=== PATIENT | female | born 1950 | race Caucasian/White ===

== ENCOUNTER → 2017-08-02 15:06 | Outpatient (CLI) | payer MEDICAID, SELFPAY | PROVIDERS: Family Provider Preventive Medicine Occupational Medicine; PCP Preventive Medicine Occupational Medicine; Visit Provider Anesthesiology Pain Medicine | DX: Z79.891 Long term (current) use of opiate analgesic (principal) | CPT/HCPCS: 36415 ==

== ENCOUNTER 2017-09-06 08:50 | Emergency (ER) | payer MEDICAID, SELFPAY ==
--- NOTE | 2017-09-06 08:50 | DT_ITS ---
This patient was seen during an EMR downtime September 05, 2017 - September 12, 2017. This patient may have a combination of paper and electronic documentation or all paper documentation. All documentation is viewable within the e-chart portion of [employer] for each patient visit.
== END 2017-09-06 10:38 | disposition home or self-care (01) ==
PROVIDERS: Emergency Provider Emergency Medicine; Family Provider Preventive Medicine Occupational Medicine; PCP Preventive Medicine Occupational Medicine
DX: H61.21 Impacted cerumen, right ear (principal); I10 Essential (primary) hypertension; F31.9 Bipolar disorder, unspecified; F32.9 Major depressive disorder, single episode, unspecified; E11.9 Type 2 diabetes mellitus without complications; Z79.84 Long term (current) use of oral hypoglycemic drugs; Z79.899 Other long term (current) drug therapy; F17.200 Nicotine dependence, unspecified, uncomplicated
CPT/HCPCS: 99284

== ENCOUNTER 2017-12-19 09:05 | Day surgery (SDC) | payer MEDICAID, SELFPAY ==
[2017-12-19 09:30] VITALS: BP 135/89; PULSE 57; RESP 18; TEMP 37.1; O2SAT 96; BMI 35.7
[2017-12-19 09:40] LABS: Bedside Glucose 87 mg/dL (70-110)
[2017-12-19] MEDS: MethylPREDNISolone Acetate 80 MG/ML Vial (10:15)
[2017-12-19] MEDS: Bupivacaine Mpf 0.5% 30 ML VIAL (10:15)
[2017-12-19 10:28] VITALS: BP 110/77; BP 135/89; PULSE 57; RESP 18; TEMP 37.1; O2SAT 100
[2017-12-19 10:35] VITALS: BP 111/74; BP 135/89; PULSE 53; RESP 16; O2SAT 100
[2017-12-19 10:39] VITALS: BP 117/62; BP 135/89; PULSE 53; RESP 18; TEMP 36.8; O2SAT 99
--- NOTE | 2017-12-19 10:45 | RAD_ITS ---
STUDY: RIGHT SI JOINT INJECTION. REASON FOR EXAM: Female, 67 years old. Right-sided back pain. FLUOROSCOPY TIME (if supplied): (0:10) minutes/seconds. 3 cone down views were obtained intraoperatively. TECHNIQUE: A right SI joint injection was performed by the pain management physician. COMPARISON: None. FINDINGS: The spinal needle is seen within the right sacroiliac joint. RAD/S-I Jts 3 or More Views IMPRESSION: Fluoroscopic imaging provided for right sacroiliac joint injection. Electronically Signed: Dwight Cleary MD at 15:37 EDT Tel [phone], Service support ,
[2017-12-19 11:27] VITALS: BP 135/89
--- NOTE | 2017-12-19 15:40 | PCM.OPRPT ---
Problem List (1) Sacrococcygeal disorders, not elsewhere classified Status: Chronic (2) Bilateral sacroiliitis Status: Chronic Report of Operation Date of Procedure: 12/19/17 Pre-Operative Diagnosis: Sacroiliitis, SI joint dysfunction Post-Operative Diagnosis: Sacroiliitis, SI joint dysfunction Surgery/Procedure Performed:: Right sided sacroiliac joint steroid injection under fluoroscopic guidance Description of Surgical Findings:: PROCEDURE: Right sacroiliac joint steroid injection under fluoroscopic guidance PREOPERATIVE DIAGNOSIS: Sacroiliitis, sacroiliac joint dysfunction POSTOPERATIVE DIAGNOSIS: Sacroiliitis, sacroiliac joint dysfunction ANESTHESIA: MAC COMPLICATIONS: None BLOOD LOSS: Minimal PROCEDURE IN DETAIL: History and physical today was reviewed. Risks and benefits of the procedure were explained. The patient understood, agreed to our procedure, and informed consent was obtained. IV inserted per routine protocol. The patient was taken to the operating room, placed in a prone position with a pillow positioned underneath the abdomen. The lower back and buttock area was prepped and draped in a sterile fashion using iodine ?3 no direct visualization of fluoroscopy at approximately 15? angle of the bilateral sacroiliac joints were visualized skin and subcutaneous tissue were anesthetized approximately 5 cc of 1% lidocaine using a 25-gauge regular needle under direct visualization with fluoroscopy at approximately 15? angle starting on the right SI a 22-gauge 3-1/2 inch spinal needle the needle was advanced via the skin the tip of the knee was maneuvering directed towards the inferior one third of the posterior SI joint once the tip of the needle was at the vicinity of the joint after negative aspiration for blood or CSF a total of 1 cc of contrast were injected to confirm correct placement of the needle as well as cephalocaudad spread the confirmation was obtained on AP as well as oblique view after repeated negative aspiration and confirmation a total of 4 cc of preservative-free 0.25% Marcaine with 40 mg of Depo-Medrol were injected in and around the SI joint the needles were then removed intact. The patient experienced no signs or symptoms intrathecal, intravascular injection. The patient experienced no paraesthesia. The procedure was completed without any apparent difficult, any complication. The patient appeared to tolerate well. ASSESSMENT AND PLAN: This is a 67-year-old female with sacroiliitis, sacroiliac joint dysfunction status post right sacroiliac joint steroid injection under fluoroscopic guidance. The patient will continue his current medications. The patient will follow in approximately 2 weeks for possible repeat of the procedure if indicated.
== END 2017-12-19 11:28 | disposition home or self-care (01) ==
LOC: SDC 09:06 → AC 09:08
PROVIDERS: Family Provider Preventive Medicine Occupational Medicine; PCP Preventive Medicine Occupational Medicine; Visit Provider Anesthesiology Pain Medicine
PROC: 3E0U3BZ Introduction of Anesthetic Agent into Joints, Percutaneous Approach (ICD-10-PCS; CPT 64451; principal; 2017-12-19 10:40)
DX: M46.1 Sacroiliitis, not elsewhere classified (principal); F41.9 Anxiety disorder, unspecified; F32.9 Major depressive disorder, single episode, unspecified; K59.09 Other constipation; Z79.899 Other long term (current) drug therapy; Z79.84 Long term (current) use of oral hypoglycemic drugs; I10 Essential (primary) hypertension; F17.200 Nicotine dependence, unspecified, uncomplicated; E11.9 Type 2 diabetes mellitus without complications
CPT/HCPCS: 01992; 27096; 64483; 72202; 82962; J7120; J3490

== ENCOUNTER 2018-02-20 05:40 | Day surgery (SDC) | payer MEDICAID, SELFPAY ==
[2018-02-20] VITALS (7 sets, daily range): BP systolic 111–131; BP diastolic 63–74; PULSE 57–69; RESP 16; TEMP 36.3–36.6; O2SAT 95–100; BMI 36.5
[2018-02-20 06:25] LABS: Bedside Glucose 92 mg/dL (70-110)
--- NOTE | 2018-02-20 07:30 | RAD_ITS ---
STUDY: X-RAY - LUMBAR SPINE REASON FOR EXAM: Female, 67 years old. Radiofrequency ablation L3-S1. TECHNIQUE: 13 view(s) of the lumbar spine were obtained. COMPARISON: None FINDINGS: 13 spot images were submitted, as radiology support for c-arm imaging in the operating room. This is not a diagnostic examination. Images for documentation purposes only. Fluoroscopy time if reported: 24.8 seconds. 7.77 mGy RAD/L/S Spine Min 4 Views IMPRESSION: Intraoperative fluoroscopic image guidance. Electronically Signed: Maria Teresa Clement MD at 0:02 EST , Service support ,
[2018-02-20] MEDS: Bupivacaine 0.5% PF 10 ML VIAL (07:47)
[2018-02-20] MEDS: MethylPREDNISolone Acetate 80 MG/ML Vial (07:48)
--- NOTE | 2018-02-20 08:04 | OP.PCM_ITS ---
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 radiculopathy Status: Chronic (2) Degeneration of intervertebral disc of lumbosacral region Status: Chronic Report of Operation Date of Procedure: 02/20/18 Pre-Operative Diagnosis: Lumbosacral spondylosis, lumbosacral degenerative disc disease, lumbar facet arthropathy Post-Operative Diagnosis: Lumbosacral spondylosis, lumbosacral degenerative disc disease, lumbar facet arthropathy Surgery/Procedure Performed:: Left-sided lumbar radiofrequency ablation of the medial branch at L3, L4, L5, S1 Description of Surgical Findings:: PROCEDURE: Left-sided radiofrequency ablation of the medial branch L3, L4, L5, S1 PREOPERATIVE DIAGNOSES: Lumbosacral spondylosis, lumbosacral degenerative disc disease, lumbar facet arthropathy POSTOPERATIVE DIAGNOSES: Lumbosacral spondylosis, lumbosacral degenerative disc disease, lumbar facet arthropathy ANESTHESIA: MAC COMPLICATIONS: None BLOOD LOSS: Minimal PROCEDURE IN DETAIL: History and physical today was reviewed. Risks and benefits of procedure explained. The patient understood, agreed to the procedure and informed consent was obtained. IV inserted per routine protocol. The patient was taken to the operating room, placed in the prone position with a pillow positioned underneath the abdomen. The left side of the lower back was prepped and draped in a sterile fashion using iodine x 3. Under fluoroscopy guidance, on an oblique view, the L3 through S1 vertebral bodies were visualized. The skin and subcutaneous tissue was anesthetized with approximately 10 mL of 1% lidocaine using a 25-gauge regular needle. Under direct visualization with fluoroscopy at approximately 25-degree angle, starting on the left L3, ending on the left S1 passing through the L4-L5 using a 20-gauge 15 cm with a 10 mm curved active tip radiofrequency ablation needle, the needle passed through the skin, The tip of the needle was maneuvered and directed towards the superior and medial gutter of the transverse process at the vicinity of the medial branch. Once the tip of the needle was in contact with the bone, the needle pulled approximately 2 mm up the bone. The stylet of each needle was then removed. After negative aspiration of blood with CSF and confirmation of AP as well as oblique view, radiofrequency ablation probe was then inserted at each level. Impedance was then recorded at L3 to be 252, at L4 317, at L5 218, at S1 315 ohm. Motor-evoked potential was then initiated to 1.5 volt without any motor response at each corresponding level. The probe was then removed intact and a total of 6 mL preservative-free 1% lidocaine was injected in divided doses between those 4 levels after negative aspiration of blood with CSF. The radiofrequency ablation probe was then reinserted after confirmation of AP, oblique as well as lateral view. Radiofrequency ablation was then initiated to 80 degrees Celsius for 90 seconds at each level. Once concluded, the probe was then removed intact and a total of 6 mL of preservative-free 0.25% Marcaine with 40 mg Depo-Medrol was injected in divided doses between those 4 levels. The needles were then removed intact. The patient experienced no signs or symptoms of intrathecal, intravascular injection. The patient experienced no paraesthesia. The procedure was completed without any ap parent difficulty, any complication. The patient appeared to tolerate well. Sensory as well as motor exam was unchanged from prior to procedure. ASSESSMENT AND PLAN: This is a 67-year-old female with lumbosacral spondylosis, lumbosacral degenerative disc disease, lumbar facet arthropathy, status post left-sided radiofrequency ablation of the medial branch L3 through S1. The patient will continue her current medications. The patient will follow up in approximately 2 weeks for reevaluation.
== END 2018-02-20 09:17 | disposition home or self-care (01) ==
LOC: SDC 05:41 → AC 05:42
PROVIDERS: Family Provider Preventive Medicine Occupational Medicine; PCP Preventive Medicine Occupational Medicine; Referring Provider Anesthesiology Pain Medicine; Visit Provider Anesthesiology Pain Medicine
PROC: (CPT 64635; principal; 2018-02-20 07:15)
DX: M47.817 Spondylosis without myelopathy or radiculopathy, lumbosacral region (principal); M51.37 Other intervertebral disc degeneration, lumbosacral region; M46.96 Unspecified inflammatory spondylopathy, lumbar region; M48.061 Spinal stenosis, lumbar region without neurogenic claudication; M51.36 Other intervertebral disc degeneration, lumbar region; M54.16 Radiculopathy, lumbar region; E11.9 Type 2 diabetes mellitus without complications; E78.00 Pure hypercholesterolemia, unspecified; F32.9 Major depressive disorder, single episode, unspecified; G43.909 Migraine, unspecified, not intractable, without status migrainosus; I10 Essential (primary) hypertension; F20.9 Schizophrenia, unspecified; M19.90 Unspecified osteoarthritis, unspecified site; F31.9 Bipolar disorder, unspecified; F41.9 Anxiety disorder, unspecified; K59.09 Other constipation; Z91.5 Personal history of self-harm; Z87.19 Personal history of other diseases of the digestive system; Z78.0 Asymptomatic menopausal state; Z96.652 Presence of left artificial knee joint; Z79.84 Long term (current) use of oral hypoglycemic drugs; Z79.891 Long term (current) use of opiate analgesic; Z79.899 Other long term (current) drug therapy; F17.210 Nicotine dependence, cigarettes, uncomplicated
CPT/HCPCS: 64635; 64636 ×3; 72110; 76000; 82962; J7120; J3490

== ENCOUNTER → 2018-03-09 11:32 | Outpatient (CLI) | payer MEDICAID, SELFPAY ==
[2018-02-20 06:13] VITALS: BMI 36.5
--- NOTE | 2018-03-09 11:35 | BI_ITS ---
MAMMOGRAPHY - BILATERAL SCREENING REASON FOR EXAM: Female, 68 years old. Routine annual screening examination. PERTINENT HISTORY: Non-contributory. Remote left breast biopsy. TECHNIQUE: Digital bilateral breast shawna (3D mammographic acquisition) in the CC and MLO projections. 2-D mediolateral oblique (MLO) and craniocaudad (CC) views of both breasts were obtained. CAD: Full Field Digital Mammography with Computer Added Detection was performed. COMPARISON: Comparison is made with prior examination dated August 22, 2013. FINDINGS: Breast Composition: The breasts are heterogeneously dense, which may obscure small masses. There are no dominant masses or suspicious calcifications. A tissue clip marker is seen in the superior slightly lateral retroareolar region of the left breast. This is unchanged. Scattered benign-appearing bilateral microcalcifications. Stable small axillary lymph nodes bilaterally. No other significant abnormalities are identified. There has been no significant change since the prior study. BI/SCREENING MAMM (CAD), BILAT IMPRESSION: Stable bilateral screening mammogram. Yearly follow-up mammogram recommended. (A) ASSESSMENT CATEGORY: BIRADS Category 2: Benign. A letter regarding these results will be sent to the patient by the facility within 30 days. Approximately 10% of breast cancers are not detected by mammography. A normal mammogram should not delay biopsy of a clinically suspicious abnormality. [id number] Electronically Signed: Dwight Cleary MD at 8:28 EST Tel [phone], Service support ,
== END ==
PROVIDERS: Family Provider Preventive Medicine Occupational Medicine; PCP Preventive Medicine Occupational Medicine; Referring Provider Preventive Medicine Occupational Medicine; Visit Provider Preventive Medicine Occupational Medicine
DX: Z12.31 Encounter for screening mammogram for malignant neoplasm of breast (principal)
CPT/HCPCS: 77063; 77067

== ENCOUNTER 2018-03-13 12:00 | Outpatient (RCR) | payer MEDICAID, SELFPAY ==
--- NOTE | 2017-07-19 12:02 | HP.PTEVAL_ITS ---
Patient's Visit Information SILVIA ROSADO is a 67 year old F referred to Physical Therapy by FAISAL Robertson with a diagnosis of LUMBAR SPINAL STENOSIS, DDD, FACET ARTHROPATHY AND RADICULOPATHY. Date of Evaluation: 07/19/17 Physical Therapist: Erika Ibarra - Visit Plan Frequency: 2-3x /Week Duration: 4-6 Weeks Plan: AQUATIC THERAPY. POSTURE CORRECTION/STRENGTHENING, INSTRUCTION IN APPROPRIATE BODY MECHANICS AND ACTIVITY MODIFICATIONS. DLS STARTING WITH A NEUTRAL SPINE PROGRESSING ROM TOLERATED. CHANO LE ROM, STRETCHING AND STRENGTHENING. HEP INSTRUCTION. - Subjective Subjective: Diagnosis: LUMBAR SPINAL STENOSIS, DDD, FACET ARTHROPATHY AND RADICULOPATHY. Work/Leisure: UNEMPLOYEED. Disability: SSI DISABILITY FOR PSYCHIATRIC REASONS AND HER EYES. ON DISABILITY SINCE ABOUT AGE 43. Present symptoms: LOW BACK PAIN. CHANO LE WEAKNESS AND INTERMITTENT LEFT KNEE PAIN. RECENT HISTORY OF SHOOTING PAINS DOWN RIGHT LEG BUT RIGHT LEG IS BETTER SINCE SHOT ABOUT A MONTH AGO BY DR. FOY. Present since: CHRONIC. Pain Scale: WORST 7/10, LEAST 4/10. Currently: 4/10. Commenced as a result of: OA. Symptoms at onset: LOW BACK. Worse: WHEN I TRY TO DO TO MUCH. BEING UP AND AROUND TOO MUCH. Better: SITTING AND SOMETIMES LYING DOWN. Disturbed sleep: YES BUT NOT DUE TO LOW BACK PAIN. Previous history/Previous treatment: NO LOW BACK SURGERY. A LOT OF INJECTIONS. NO PT. NO CHIRO. Coughing/sneezing/ straining: YES. Gait: CANE NEEDED. NOT USING CANE IN THE HOUSE. USES CANE WHEN SHE GOES OUT. Difficulty initiating urinatin: NO. Accidents: NO. Unexplained weight loss: NO. Imaging: RECENT WITH DR. FOY. PMH: PSYCHIATRIC ISSUE. SEE BELOW. - Objective Sitting Posture: POOR. Standing Posture: POOR. Lordosis: REDUCED. Lateral shift: NO. Relevant shift: N/A. Active Correction of posture: WORSE. Other Observations: INDEP GAIT INTO PT WITH A STRAIGHT CANE WITH SLOW ANTALGIC GAIT PATTERN. NO LOSS OF BALANCE. UNABLE TO TRANSFER SIT TO STAND WITHOUT UE ASSIST. UNABLE TO SLS ON EITHER LEG MORE THAN A FEW SECONDS WITHOUT UE ASSIST. Motor deficit: CHANO LE GENERALIZED WEAKNESS GRADED 4-/5. Sensory deficit: NO. ROM deficit: CHANO KNEE FULL EXT TO >100 DEG FLEX. TIGHT CHANO HS'S, AND GASTROC SOLEUS COMPLEX'S. Dural Signs: POSITIVE CHANO LE'S. Lumbar mvmt loss: flex - MOD. ext - YESSICA. R SG - YESSICA. L SG - YESSICA. Core strength: POOR. Palpation: NO ACUTE TENDERNESS IN THE LUMBOSACRAL OR HIP/PELVIC REGIONS TODAY - Goals Goal 1:: DECREASE C/O BACK AND CHANO LE SX'S Goal Time Frame: 4-6 Weeks Goal 2:: IMPROVE PERSONAL CARE, LIFITNG, WALKING, STANDING, SOCIAL LIFE, TRAVEL AND HOMEMAKING FUNCTION Goal Time Frame: 4-6 Weeks Goal 3:: INSTRUCT IN PROPHYLAXIS Goal Time Frame: 4-6 Weeks - Rehabilitation Potential Rehabilitation Potential: Fair - Anticipated Interventions Patient/Client Instruction: Educate patient on: Condition, Plan of Care, Risk Factors, Benefits of Fitness Program For the Purpose of:: To improve self management Therapeutic Exercise to Include: Strength training, Endurance training, Balance training, Body mechanics, Postural training, Flexibilty training, In an aquatic setting, Active ROM, Dynamic Lumbar Stabilization For the Purpose of:: To decrease pain, To increase ROM, To improve muscle performance and motor function, To improve ability to perform ADL's, To increase tolerance to activity/condition/position, To improve ability of physical actions for home/community/work/leisure, To improve gait and locomotor functions Thank you for the opportunity to evaluate your patient. For Medicare and Medicare HMO plans, please review the plan of care and approve it. It will need to be FAXED BACK to us at [phone] for Medicare purposes. Please let me know if there are questions or concerns regarding this plan of care. Physician Signature: Date:
--- NOTE | 2017-09-19 11:33 | HP.PTREVAL ---
Yarelis Mehta, LEONOR-C, It has been my pleasure to treat SILVIA ROSADO over the last 9 visits for LUMBAR SPINAL STENOSIS, DDD, FACET ARTHROPATHY AND RADICULOPATHY. Please see the progress note below for an update on the physical therapy plan of care! Subjective: PATIENT REPORTS SHE MISSED SOME POOL APPOINTMENTS DUE TO OTHER APPOINTMENTS AND WANTS TO DO MORE POOL WITH US. I'M HAVING ANOTHER SHOT NEXT TUESDAY ON THE RIGHT LOW BACK. PATIENT REPORTS IT DOESN'T HURT HER WHEN SHE EX'S IN THE POOL AND EVEN THOUGH SHE FEELS IT WHEN SHE GETS OUT SHE FEELS LIKE IT HELPS HER TO BE ABLE TO BE MORE ACTIVE OVER-ALL. PATIENT IS GOING TO CONSIDER JOINING THE [facility] OR DAYS INN TO CONTINUE WATER EX POST PT. Objective/Function: UPON EXAM, THERE ARE NO SIGNIFICANT CHANGES IN FUNCTIONAL ROM OR STRENGTH BUT PATIENT IS REPORTING DECREASED PAIN FROM THE INJECTION AND A DESIRE TO CONTINUE AQUATIC THERAPY AGAIN. SHE REPORTS CONTINUED IMPROVEMENT OVER THE PAST MONTH WELL. INDEP GAIT INTO PT WITH A STRAIGHT CANE WITH FAIR CADANCE COMPARED AND NO LOSS OF BALANCE. STILL UNABLE/DOES NOT WANT TO ATTEMPT TO TRANSFER SIT TO STAND WITHOUT UE ASSIST. STILL UNABLE TO SLS ON EITHER LEG MORE THAN A FEW SECONDS WITHOUT UE ASSIST AND PATIENT IS NERVOUS WITH TESTING. Motor deficit: CHANO LE GENERALIZED WEAKNESS GRADED 4-/5. Sensory deficit: NO. ROM deficit: CHANO KNEE FULL EXT TO 100 DEG FLEX ON THE RIGHT AND 92 DEG FLEX ON THE LEFT. SHE REPORTS EVERY DAY IS DIFFERENT WITH HER KNEES. TIGHT CHANO HS'S, AND GASTROC SOLEUS COMPLEX'S. Dural Signs: POSITIVE CHANO LE'S. Lumbar mvmt loss: flex - MOD. ext - YESSICA. R SG - YESSICA. L SG - YESSICA. PATIENT IS ALSO TENTATIVE WITH LUMBAR ROM TESTING AND STOPS EACH DIRECTION WHEN IT HURTS. Core strength: POOR. Palpation: SHE DOES HAVE ACUTE TENDERNESS IN THE RIGHT LUMBOSACRAL REGIONS TODAY. INJECTION PENDING NEXT WEEK. Plan Plan: RECOMMEND CONTINUED AQUATIC THERAPY 2X'S A WEEK X 3-4 WEEKS PER ORIG POC WORKING TOWARD SAME GOALS. CONTINUE TO ENCOURAGE PATIENT TO GAIN ACCESS TO A POOL TO CONTINUE WATER EX POST PT. Goals Goal 1:: DECREASE C/O BACK AND CHANO LE SX'S Goal Time Frame: 4-6 Weeks Goal Progress: Progressing Goal 2:: IMPROVE PERSONAL CARE, LIFITNG, WALKING, STANDING, SOCIAL LIFE, TRAVEL AND HOMEMAKING FUNCTION Goal Time Frame: 4-6 Weeks Goal Progress: Progressing Goal 3:: INSTRUCT IN PROPHYLAXIS Goal Time Frame: 4-6 Weeks Goal Progress: Progressing Anticipated Interventions Patient/Client Instruction: Educate patient on: Condition, Plan of Care, Risk Factors, Benefits of Fitness Program For the Purpose of:: To improve self management Therapeutic Exercise to Include: Strength training, Endurance training, Balance training, Body mechanics, Postural training, Flexibilty training, In an aquatic setting, Active ROM, Dynamic Lumbar Stabilization For the Purpose of:: To decrease pain, To increase ROM, To improve muscle performance and motor function, To improve ability to perform ADL's, To increase tolerance to activity/condition/position, To improve ability of physical actions for home/community/work/leisure, To improve gait and locomotor functions Please do not hesitate to contact me at [phone] by phone or if you have questions or concerns regarding this new plan of care! Sincerely, Erika Ibarra
--- NOTE | 2017-12-27 12:36 | HP.PTREVAL_ITS ---
Yarelis Mehta, LEONOR-C, It has been my pleasure to treat SILVIA ROSADO over the last 21 visits for LUMBAR SPINAL STENOSIS, DDD, FACET ARTHROPATHY AND RADICULOPATHY. Please see the progress note below for an update on the physical therapy plan of care! Subjective: Doing okay ..would like to do Aquatic ex's ,land ex's would agrravate my symptoms. Patien has shown small gains with function and gait walking for example store Objective/Function: POSTURE: mild foward posture. GAIT: ambulated with cane mild foward posture. antalgic gait. NEURO: denies parathesai/tingling,reflexes L3-4,L4-5,L5-S 1/3. MMT: quad/hams 4-/5,hip flexion right 4-/5,left 3+/5. LUMBAR ROM: mod loss flexion,extesnion mod /severe loss Plan Plan: Cont with PT interventions Aquatic 2 xweek for 3weeks Goals Goal 1:: DECREASE C/O BACK AND CHANO LE SX'S Goal Time Frame: 4-6 Weeks Goal Progress: Progressing Goal 2:: IMPROVE PERSONAL CARE, LIFITNG, WALKING, STANDING, SOCIAL LIFE, TRAVEL AND HOMEMAKING FUNCTION Goal Time Frame: 4-6 Weeks Goal Progress: Progressing Goal 3:: INSTRUCT IN PROPHYLAXIS Goal Time Frame: 4-6 Weeks Goal Progress: Progressing Anticipated Interventions Patient/Client Instruction: Educate patient on: Condition, Plan of Care, Risk Factors, Benefits of Fitness Program For the Purpose of:: To improve self management Therapeutic Exercise to Include: Strength training, Endurance training, Balance training, Body mechanics, Postural training, Flexibilty training, In an aquatic setting, Active ROM, Dynamic Lumbar Stabilization For the Purpose of:: To decrease pain, To increase ROM, To improve muscle performance and motor function, To improve ability to perform ADL's, To increase tolerance to activity/condition/position, To improve ability of physical actions for home/community/work/leisure, To improve gait and locomotor functions Please do not hesitate to contact me at [phone] by phone or Fax: if you have questions or concerns regarding this new plan of care! Sincerely, Barrera Maher, PT,
--- NOTE | 2018-04-26 10:27 | HP.PTDCSUM ---
HP - PT D/C Summary It has been my pleasure to treat SILVIA ROSADO under orders from ADAM RobertsonC, for the diagnosis of LUMBAR SPINAL STENOSIS, DDD, FACET ARTHROPATHY AND RADICULOPATHY for a total of 25 visit(s). Discharge Date: Please see the following information for a summary of their discharge status. - Subjective Subjective: Doing okay ..pain about same - Pain Lumbar spine Pain Intensity (Out of 10): 5 R knee Pain Intensity (Out of 10): 5 L foot Pain Intensity (Out of 10): 5 - Overall Improvement % Improvement: 75 - Objective Objective/Function: kirill tx well progressed with DLS abd/back - Goals Goal 1:: DECREASE C/O BACK AND CHANO LE SX'S Goal Progress: Progressing Goal 2:: IMPROVE PERSONAL CARE, LIFITNG, WALKING, STANDING, SOCIAL LIFE, TRAVEL AND HOMEMAKING FUNCTION Goal Progress: Progressing Goal 3:: INSTRUCT IN PROPHYLAXIS Goal Progress: Progressing - Plan Plan: will transition to land ex's focusing on slow grade postural ex's,DLS M,LE strengthening - D/C Information If there are questions or concerns regarding this patient's physical therapy, please feel free to call me at [phone]. Thank you for the referral of this patient. Sincerely, Barrera Maher, PT, Cert MDT, OCS
== END 2018-03-13 19:00 | disposition home or self-care (01) ==
LOC: PT 12:00
PROVIDERS: Family Provider Preventive Medicine Occupational Medicine; PCP Preventive Medicine Occupational Medicine; Visit Provider Nurse Practitioner Family
DX: M48.061 Spinal stenosis, lumbar region without neurogenic claudication (principal); M46.96 Unspecified inflammatory spondylopathy, lumbar region; M54.16 Radiculopathy, lumbar region; M79.1 Myalgia
CPT/HCPCS: 97110; 97113; 97162; 97164; 97530

== ENCOUNTER 2018-03-20 06:50 | Day surgery (SDC) | payer MEDICAID, SELFPAY ==
[2018-02-20 06:13] VITALS: BMI 36.5
[2018-03-20 07:17] VITALS: BP 127/74; PULSE 62; RESP 16; TEMP 37.4; O2SAT 97; BMI 38.1
[2018-03-20 07:35] LABS: Bedside Glucose 96 mg/dL (70-110)
[2018-03-20] MEDS: MethylPREDNISolone Acetate 40 MG/ML Vial IM (08:50)
[2018-03-20] MEDS: Bupivacaine 0.25% 30 ML Vial INFILT (08:50)
--- NOTE | 2018-03-20 08:50 | RAD_ITS ---
PROCEDURE: Right L3-S1 radiofrequency ablation. DATE OF EXAMINATION: March 20, 2018. INDICATION: Female, 68 years old. Low back pain. FLUOROSCOPY TIME (if supplied): (0:28) minutes/seconds. 7 coned-down views were obtained intraoperatively. Fluoroscopic services provided for right L3 S1 radiofrequency ablation. RAD/L/S Spine Min 4 Views IMPRESSION: Intraoperative imaging provided for right L3-S1 radiofrequency ablation. Electronically Signed: Dwight Cleary MD at 9:35 EST Tel [phone], Service support ,
--- NOTE | 2018-03-20 09:06 | PCM.OPRPT ---
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 radiculopathy Status: Chronic (2) Degeneration of intervertebral disc of lumbosacral region Status: Chronic Report of Operation Date of Procedure: 03/20/18 Pre-Operative Diagnosis: Lumbosacral spondylosis, lumbosacral degenerative disc disease, lumbar facet arthropathy Post-Operative Diagnosis: Lumbosacral spondylosis, lumbosacral degenerative disc disease, lumbar facet arthropathy Surgery/Procedure Performed:: Right-sided lumbar radiofrequency ablation of the medial branch at L3, L4, L5, S1 Description of Surgical Findings:: PROCEDURE: Right-sided radiofrequency ablation of the medial branch L3, L4, L5, S1 PREOPERATIVE DIAGNOSES: Lumbosacral spondylosis, lumbosacral degenerative disc disease, lumbar facet arthropathy POSTOPERATIVE DIAGNOSES: Lumbosacral spondylosis, lumbosacral degenerative disc disease, lumbar facet arthropathy ANESTHESIA: MAC COMPLICATIONS: None BLOOD LOSS: Minimal PROCEDURE IN DETAIL: History and physical today was reviewed. Risks and benefits of procedure explained. The patient understood, agreed to the procedure and informed consent was obtained. IV inserted per routine protocol. The patient was taken to the operating room, placed in the prone position with a pillow positioned underneath the abdomen. The right side of the lower back was prepped and draped in a sterile fashion using iodine x 3. Under fluoroscopy guidance, on an oblique view, the L3 through S1 vertebral bodies were visualized. The skin and subcutaneous tissue was anesthetized with approximately 10 mL of 1% lidocaine using a 25-gauge regular needle. Under direct visualization with fluoroscopy at approximately 25-degree angle, starting on the right L3, ending on the right S1 passing through the L4-L5 using a 20-gauge 15 cm with a 10 mm curved active tip radiofrequency ablation needle the needle passed through the skin. The tip of the needle was maneuvered and directed towards the superior and medial gutter of the transverse process at the vicinity of the medial branch. Once the tip of the needle was in contact with the bone, the needle pulled approximately 2 mm up the bone. The stylet of each needle was then removed. After negative aspiration of blood with CSF and confirmation of AP as well as oblique view, radiofrequency ablation probe was then inserted at each level. Impedance was then recorded at L3 to be 228, at L4 244, at L5 271, at S1 297 ohm. Motor-evoked potential was then initiated to 1.5 volt without any motor response at each corresponding level. The probe was then removed intact and a total of 6 mL preservative-free 1% lidocaine was injected in divided doses between those 4 levels after negative aspiration of blood with CSF. The radiofrequency ablation probe was then reinserted after confirmation of AP, oblique as well as lateral view. Radiofrequency ablation was then initiated to 80 degrees Celsius for 90 seconds at each level. Once concluded, the probe was then removed intact and a total of 6 mL of preservative-free 0.25% Marcaine with 40 mg Depo-Medrol was injected in divided doses between those 4 levels. The needles were then removed intact. The patient experienced no signs or symptoms of intrathecal, intravascular injection. The patient experienced no paraesthesia. The procedure was completed without any apparent difficulty, any complication. The patient appeared to tolerate well. Sensory as well as motor exam was unchanged from prior to procedure. ASSESSMENT AND PLAN: This is a 68-year-old Female with lumbosacral spondylosis, lumbosacral degenerative disc disease, lumbar facet arthropathy, status post right-sided radiofrequency ablation of the medial branch L3 through S1. The patient will continue her current medications. The patient will follow up in approximately 2 weeks for reevaluation.
[2018-03-20 09:10] VITALS: BP 117/69; BP 127/74; PULSE 61; RESP 16; TEMP 36.3; O2SAT 99
[2018-03-20 09:15] VITALS: BP 117/70; BP 127/74; PULSE 61; RESP 16; O2SAT 98
[2018-03-20 09:20] VITALS: BP 121/65; BP 127/74; PULSE 61; RESP 16; O2SAT 98
[2018-03-20 09:25] VITALS: BP 127/74; BP 131/83; PULSE 57; RESP 16; TEMP 36.4; O2SAT 98
[2018-03-20 10:01] VITALS: BP 127/74
--- OUTSIDE RECORDS SUMMARY | 2018-06-21 16:41 | XMS RPT_ITS ---
:1950 Author Organization OHIP Care Team Providers Name Role Phone Brandon Cuellar Attending Unavailable Brandon Cuellar Referring Unavailable Broderick Mi Primary Care Unavailable Broderick Mi Primary Care Unavailable Margaret Elizondo Attending Unavailable Sunny Odom Attending Unavailable Sunny Odom Referring Unavailable Broderick Mi Primary Care Unavailable Broderick Mi Attending Unavailable Broderick Mi Primary Care Unavailable Broderick Mi Referring Unavailable Brandon Cuellar Attending Unavailable Brandon Cuellar Referring Unavailable Broderick Mi Primary Care Unavailable Brandon Cuellar Attending Unavailable Brandon Cuellar Referring Unavailable Broderick Mi Primary Care Unavailable Yarelis Mehta RED MUD THICKENER OPERATOR-C Attending Unavailable Yarelis Mehta RED MUD THICKENER OPERATOR-C Referring Unavailable Broderick Mi Primary Care Unavailable Brandon Cuellar Attending Unavailable Brandon Cuellar Referring Unavailable Broderick Mi Primary Care Unavailable PROBLEMS PROBLEMS DATE TYPE CONDITION / CODE ATTENDING STATUS SOURCE 03/23/2018 Unknown R52 - Pain, Jwayyed, Active [place] [facility] 04/26/2018 Unknown 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, 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, lumbar RED MUD THICKENER OPERATOR-C [facility] neurogenic Repository claudication / M48.061(ICD-10) 09/30/2017 Unknown H92.01 - Otalgia, Sunny Odom Active [place] right ear / [facility] H92.01(ICD-10) Hospital Repository 08/11/2017 Unknown Z79.891 - [place] Brandon Active [place] term (current) use [facility] analgesic / Repository Z79.891(ICD-10) PROCEDURES PROCEDURES No Procedure Records FoundRESULTS RESULTS PT D/C SUMMARY (1) Observed: 04/26/2018 Status: F Source: [place] 11:40 AM [facility] REPOSITORY [facility] Physical Therapy [facility] [place] [address] / REHABILITATION SERVICES DISCHARGE SUMMARY MR#: [id number] Acct: [id number] Name: SILVIA ROSADO Rep #: [id number] : 1950 68 From: Reyna Maher PT, Cert. T, OCS Referring Dr.: Yarelis Mehta Status: REG RCR Insurance: [facility] [employer] SELF PAY INSURANCE HP - PT D/C Summary It has been my pleasure to treat SILVIA ROSADO under orders from FAISAL Robertson, for the diagnosis of LUMBAR SPINAL STENOSIS, DDD, FACET ARTHROPATHY AND RADICULOPATHY for a total of 25 visit(s). Discharge Date: Please see the following information for a summary of their discharge status. - Subjective Subjective: Doing okay ..pain about same - Pain Lumbar spine Pain Intensity (Out of 10): 5 R knee Pain Intensity (Out of 10): 5 L foot Pain Intensity (Out of 10): 5 - Overall Improvement % Improvement: 75 - Objective Objective/Function: kirill tx well progressed with DLS abd/back - Goals Goal 1:: DECREASE C/O BACK AND CHANO LE SX'S Goal Progress: Progressing Goal 2:: IMPROVE PERSONAL CARE, LIFITNG, WALKING, STANDING, SOCIAL LIFE, TRAVEL AND HOMEMAKING FUNCTION Goal Progress: Progressing Goal 3:: INSTRUCT IN PROPHYLAXIS Goal Progress: Progressing - Plan Plan: will transition to land ex's focusing on slow grade postural ex's,DLS M,LE strengthening - D/C Information If there are questions or concerns regarding this patient's physical therapy, please feel free to call me at [phone]. Thank you for the referral of this patient. Sincerely, Reyna Maher PT, Cert MDT, OCS <Electronically signed by Mirta Kuo PT. T, OCS> 04/26/18 1140 CC: Yarelis Mehta; Broderick Mi DO MIKE Signed EMERGENCY DEPARTMENT Observed: 03/23/2018 Status: F Source: [place] SUMMARY 4:23 PM [facility] REPOSITORY [facility] Medical Records Department [address] [place] [address] Emergency Department Summary 03/23/18 0837 MR#: [id number] Acct: [id number] Name: SILVIA ROSADO Rep #: [id number] : 1950 68 From: Margaret Elizondo MD PCP: Broderick Mi DO Status: DEP ER - ER Visit Summary Date of Service: 03/23/18 Chief Complaint: [] Right upper dental pain mild facial swelling for a few days History of Present Illness: The patient is a 68 F [] reports that basically for a few days she has had pain over what she knows to be decaying right upper teeth she has some mild facial swelling she was seen by her dentist about a month ago recommend these teeth be extracted she refused and presents for evaluation. No other complaints no change in vision no eye pain no fever cough, Physical Examination: [] 120/80 afebrile General, no distress resting comfortably HEENT is generally unremarkable except for there is some very mild right facial swelling over the cheek, there are at least 2 decaying teeth to the right upper mandible there is no drainage no gingival gumline swelling she has multiple extractions, there is no drainage no airway issues for the mouth is normal no Kevin's breathing normally speaking normally The neck is supple no adenopathy Cardiovascular, regular rate and rhythm Lungs, clear bilateral Abdomen, soft nontender Extremities, no clubbing cyanosis or edema Neurologic, awake alert answering questions appropriately moving all 4 extremities Test Results: [] Emergency Department Course and Treatment: [] Time she will be started on Pen-Vee K Naprosyn she is not allergic to hydrocodone or oxycodone she will be given 2 hydrocodone tablets use at bedtime and she will follow-up with her dentist for further management Treatment Plan: [] Disposition: [] Home stable Impression: [] Dental decay dental pain This note was generated with [employer] software. It may contain incorrect words, spelling, and punctuation that were not noted in review of the chart prior to signing ED Disposition - Plan for ED Patient: Chief Complaint: Dental Referrals: Broderick Mi DO [Primary Care Provider] - What to do if you have Problems For any increased pain, shortness of breath, bleeding, nausea or vomiting, chest pain, or any unexpected problems, contact your Primary Care Provider. Call [facility] ([phone]) or report to the closest Emergency Room. Call 911 if necessary. 03/23/18 1623 <Electronically signed by Margaret Elizondo MD> Date Margaret Elizondo MD Cosigner Signature (If Indicated): Date CC: Broderick Mi DO DISCHARGE INSTRUCTION Observed: 03/23/2018 Status: F Source: [place] 8:58 AM [facility] REPOSITORY [facility] Medical Records Department [address] [place] [address] Discharge Instruction 03/23/18 0855 MR#: [id number] Acct: [id number] Name: SILVIA ROSADO Rep #: [id number] : 1950 68 From: Margaret Elizondo MD PCP: Broderick Mi DO Status: REG ER ED Disposition - Plan for ED Patient: Chief Complaint: Dental Instructions: ED Tooth Pain, ED Cavity Dental Prescriptions: Hydrocodone Bitart/Apap 5-325 [Dilley 5MG-325MG] 1 tab PO Q4H PRN PRN 2 Days #2 tab PRN Reason: Pain Naproxen [Naprosyn] 500 mg PO BID PRN #20 tab Penicillin V Potassium 500 mg PO 4X/DAY #40 tab Referrals: Broderick Mi DO [Primary Care Provider] - What to do if you have Problems For any increased pain, shortness of breath, bleeding, nausea or vomiting, chest pain, or any unexpected problems, contact your Primary Care Provider. Call [facility] ([phone]) or report to the closest Emergency Room. Call 911 if necessary. 03/23/1858 <Electronically signed by Margaret Elizondo MD> Date Margaret Elizondo MD Cosigner Signature (If Indicated): Date CC: Broderick Mi DO DISCHARGE INSTRUCTION Observed: 03/23/2018 Status: F Source: [place] 8:43 AM [facility] REPOSITORY [facility] Medical Records Department [address] [place] [address] Discharge Instruction 03/23/18 0841 MR#: [id number] Acct: [id number] Name: SILVIA ROSADO Rep #: [id number] : 1950 68 From: Margaret Elizondo MD PCP: Broderick Mi DO Status: REG ER ED Disposition - Plan for ED Patient: Chief Complaint: Dental Instructions: ED Tooth Pain, ED Cavity Dental Prescriptions: Hydrocodone Bitart/Apap 5-325 [Dilley 5MG-325MG] 1 tab PO Q4H PRN PRN 2 Days #2 tab PRN Reason: Pain Naproxen [Naprosyn] 500 mg PO BID PRN #20 tab Penicillin V Potassium 500 mg PO 4X/DAY #40 tab Referrals: Broderick Mi DO [Primary Care Provider] - What to do if you have Problems For any increased pain, shortness of breath, bleeding, nausea or vomiting, chest pain, or any unexpected problems, contact your Primary Care Provider. Call [facility] ([phone]) or report to the closest Emergency Room. Call 911 if necessary. 03/23/18 0843 <Electronically signed by Margaret Elizondo MD> Date Margaret Elizondo MD Cosigner Signature (If Indicated): Date CC: Broderick Mi DO OPERATIVE REPORT Observed: 03/20/2018 Status: F Source: [place] 9:11 AM [facility] REPOSITORY [facility] Medical Records Department [address] [place] [address] Operative Report 03/20/18 0906 MR#: [id number] Acct: [id number] Name: SILVIA ROSADO Rep #: [id number] : 1950 68 From: Brandon Cuellar MD PCP: Broderick Mi DO Status: REG SDC Y Location: [place] [address] 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 radiculopathy Status: Chronic (2) Degeneration of intervertebral disc of lumbosacral region Status: Chronic Report of Operation Date of Procedure: 03/20/18 Pre-Operative Diagnosis: Lumbosacral spondylosis, lumbosacral degenerative disc disease, lumbar facet arthropathy Post-Operative Diagnosis: Lumbosacral spondylosis, lumbosacral degenerative disc disease, lumbar facet arthropathy Surgery/Procedure Performed:: Right-sided lumbar radiofrequency ablation of the medial branch at L3, L4, L5, S1 Description of Surgical Findings:: PROCEDURE: Right-sided radiofrequency ablation of the medial branch L3, L4, L5, S1 PREOPERATIVE DIAGNOSES: Lumbosacral spondylosis, lumbosacral degenerative disc disease, lumbar facet arthropathy POSTOPERATIVE DIAGNOSES: Lumbosacral spondylosis, lumbosacral degenerative disc disease, lumbar facet arthropathy ANESTHESIA: MAC COMPLICATIONS: None BLOOD LOSS: Minimal PROCEDURE IN DETAIL: History and physical today was reviewed. Risks and benefits of procedure explained. The patient understood, agreed to the procedure and informed consent was obtained. IV inserted per routine protocol. The patient was taken to the operating room, placed in the prone position with a pillow positioned underneath the abdomen. The right side of the lower back was prepped and draped in a sterile fashion using iodine x 3. Under fluoroscopy guidance, on an oblique view, the L3 through S1 vertebral bodies were visualized. The skin and subcutaneous tissue was anesthetized with approximately 10 mL of 1% lidocaine using a 25-gauge regular needle. Under direct visualization with fluoroscopy at approximately 25-degree angle, starting on the right L3, ending on the right S1 passing through the L4-L5 using a 20-gauge 15 cm with a 10 mm curved active tip radiofrequency ablation needle the needle passed through the skin. The tip of the needle was maneuvered and directed towards the superior and medial gutter of the transverse process at the vicinity of the medial branch. Once the tip of the needle was in contact with the bone, the needle pulled approximately 2 mm up the bone. The stylet of each needle was then removed. After negative aspiration of blood with CSF and confirmation of AP as well as oblique view, radiofrequency ablation probe was then inserted at each level. Impedance was then recorded at L3 to be 228, at L4 244, at L5 271, at S1 297 ohm. Motor-evoked potential was then initiated to 1.5 volt without any motor response at each corresponding level. The probe was then removed intact and a total of 6 mL preservative- free 1% lidocaine was injected in divided doses between those 4 levels after negative aspiration of blood with CSF. The radiofrequency ablation probe was then reinserted after confirmation of AP, oblique as well as lateral view. Radiofrequency ablation was then initiated to 80 degrees Celsius for 90 seconds at each level. Once concluded, the probe was then removed intact and a total of 6 mL of preservative-free 0.25% Marcaine with 40 mg Depo-Medrol was injected in divided doses between those 4 levels. The needles were then removed intact. The patient experienced no signs or symptoms of intrathecal, intravascular injection. The patient experienced no paraesthesia. The procedure was completed without any apparent difficulty, any complication. The patient appeared to tolerate well. Sensory as well as motor exam was unchanged from prior to procedure. ASSESSMENT AND PLAN: This is a 68-year-old Female with lumbosacral spondylosis, lumbosacral degenerative disc disease, lumbar facet arthropathy, status post right-sided radiofrequency ablation of the medial branch L3 through S1. The patient will continue her current medications. The patient will follow up in approximately 2 weeks for reevaluation. 03/20/18910 <Electronically signed by Brandon Cuellar MD> Date Brandon Cuellar MD CC: Brandon Cuellar; Broderick Mi DO Signed BEDSIDE GLUCOSE Collected: 03/20/2018 Status: F Source: [place] 7:29 AM [facility] REPOSITORY TYPE CODE TESTS RESULT OUT OF RANGE REFERENCE UNITS LAB L501.080 70-110 mg/dL Normal BEDSIDE GLU 96 Result Comment: MANAGEMENT OF PATIENT CARE PER NURSING PROTOCOL Performed By: #### L501.080 #### [facility] Laboratory Point of Care [address] [place] [address] L/S SPINE MIN 4 Observed: 03/20/2018 Status: F Source: [place] VIEWS 3:37 AM [facility] REPOSITORY [facility] Imaging Services [address] [place] [address] L/S Spine Min 4 Views MR#: [id number] Acct: [id number] Name: SILVIA ROSADO Rep #: [id number] : 1950 F 68 From: Dwight Cleary MD PCP: Broderick Mi DO Status[place] [facility] [place]: L/S Spine Min 4 Views Date of Exam: 03/20/18 Exam# [id number] Ordering Dr: Brandon Cuellar MD PROCEDURE: Right L3-S1 radiofrequency ablation. DATE OF EXAMINATION: March 20, 2018. INDICATION: Female, 68 years old. Low back pain. FLUOROSCOPY TIME (if supplied): (0:28) minutes/seconds. 7 coned-down views were obtained intraoperatively. Fluoroscopic services provided for right L3 S1 radiofrequency ablation. RAD/L/S Spine Min 4 Views IMPRESSION: Intraoperative imaging provided for right L3-S1 radiofrequency ablation. Electronically Signed: Dwight Cleary MD at 9:35 EST Tel [phone], Service support , CC: Brandon Cuellar; Broderick Mi DO Freight Flagman: Signed SCREENING MAMM (CAD), Observed: 03/09/2018 Status: F Source: [facility] 11:35 AM [facility] RE[facility]IT[facility] Imaging Services [address] [place] [address] SCREENING MAMM (CAD), BILAT MR#: [id number] Acct: [id number] Name: SILVIA ROSADO Rep #: [id number] : 1950 F 68 From: Dwight Cleary MD PCP: Broderick Mi DO Status: REG CLI Study: SCREENING MAMM (CAD), BILAT Date of Exam: 03/09/18 Exam# [id number] Ordering Dr: Broderick Mi DO MAMMOGRAPHY - BILATERAL SCREENING REASON FOR EXAM: Female, 68 years old. Routine annual screening examination. PERTINENT HISTORY: Non-contributory. Remote left breast biopsy. TECHNIQUE: Digital bilateral breast shawna (3D mammographic acquisition) in the CC and MLO projections. 2-D mediolateral oblique (MLO) and craniocaudad (CC) views of both breasts were obtained. CAD: Full Field Digital Mammography with Computer Added Detection was performed. COMPARISON: Comparison is made with prior examination dated August 22, 2013. FINDINGS: Breast Composition: The breasts are heterogeneously dense, which may obscure small masses. There are no dominant masses or suspicious calcifications. A tissue clip marker is seen in the superior slightly lateral retroareolar region of the left breast. This is unchanged. Scattered benign-appearing bilateral microcalcifications. Stable small axillary lymph nodes bilaterally. No other significant abnormalities are identified. There has been no significant change since the prior study. BI/SCREENING MAMM (CAD), BILAT IMPRESSION: Stable bilateral screening mammogram. Yearly follow-up mammogram recommended. (A) ASSESSMENT CATEGORY: BIRADS Category 2: Benign. A letter regarding these results will be sent to the patient by the facility within 30 days. Approximately 10% of breast cancers are not detected by mammography. A normal mammogram should not delay biopsy of a clinically suspicious abnormality. [id number] Electronically Signed: Dwight Cleary MD at 8:28 EST Tel [phone], Service support , CC: Broderick Mi DO Freight Flagman: Signed OPERATIVE REPORT Observed: 02/20/2018 Status: F Source: [place] 8:05 AM [facility] REPOSITORY [facility] Medical Records Department [address] [place] [address] Operative Report 02/20/18 0759 MR#: [id number] Acct: [id number] Name: SILVIA ROSADO Rep #: [id number] : 1950 67 From: Brandon Cuellar MD PCP: Broderick Mi DO Status: REG [facility] [place]: [place] [address] 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 radiculopathy Status: Chronic (2) Degeneration of intervertebral disc of lumbosacral region Status: Chronic Report of Operation Date of Procedure: 02/20/18 Pre-Operative Diagnosis: Lumbosacral spondylosis, lumbosacral degenerative disc disease, lumbar facet arthropathy Post-Operative Diagnosis: Lumbosacral spondylosis, lumbosacral degenerative disc disease, lumbar facet arthropathy Surgery/Procedure Performed:: Left-sided lumbar radiofrequency ablation of the medial branch at L3, L4, L5, S1 Description of Surgical Findings:: PROCEDURE: Left-sided radiofrequency ablation of the medial branch L3, L4, L5, S1 PREOPERATIVE DIAGNOSES: Lumbosacral spondylosis, lumbosacral degenerative disc disease, lumbar facet arthropathy POSTOPERATIVE DIAGNOSES: Lumbosacral spondylosis, lumbosacral degenerative disc disease, lumbar facet arthropathy ANESTHESIA: MAC COMPLICATIONS: None BLOOD LOSS: Minimal PROCEDURE IN DETAIL: History and physical today was reviewed. Risks and benefits of procedure explained. The patient understood, agreed to the procedure and informed consent was obtained. IV inserted per routine protocol. The patient was taken to the operating room, placed in the prone position with a pillow positioned underneath the abdomen. The left side of the lower back was prepped and draped in a sterile fashion using iodine x 3. Under fluoroscopy guidance, on an oblique view, the L3 through S1 vertebral bodies were visualized. The skin and subcutaneous tissue was anesthetized with approximately 10 mL of 1% lidocaine using a 25-gauge regular needle. Under direct visualization with fluoroscopy at approximately 25-degree angle, starting on the left L3, ending on the left S1 passing through the L4-L5 using a 20-gauge 15 cm with a 10 mm curved active tip radiofrequency ablation needle, the needle passed through the skin, The tip of the needle was maneuvered and directed towards the superior and medial gutter of the transverse process at the vicinity of the medial branch. Once the tip of the needle was in contact with the bone, the needle pulled approximately 2 mm up the bone. The stylet of each needle was then removed. After negative aspiration of blood with CSF and confirmation of AP as well as oblique view, radiofrequency ablation probe was then inserted at each level. Impedance was then recorded at L3 to be 252, at L4 317, at L5 218, at S1 315 ohm. Motor-evoked potential was then initiated to 1.5 volt without any motor response at each corresponding level. The probe was then removed intact and a total of 6 mL preservative- free 1% lidocaine was injected in divided doses between those 4 levels after negative aspiration of blood with CSF. The radiofrequency ablation probe was then reinserted after confirmation of AP, oblique as well as lateral view. Radiofrequency ablation was then initiated to 80 degrees Celsius for 90 seconds at each level. Once concluded, the probe was then removed intact and a total of 6 mL of preservative-free 0.25% Marcaine with 40 mg Depo-Medrol was injected in divided doses between those 4 levels. The needles were then removed intact. The patient experienced no signs or symptoms of intrathecal, intravascular injection. The patient experienced no paraesthesia. The procedure was completed without any apparent difficulty, any complication. The patient appeared to tolerate well. Sensory as well as motor exam was unchanged from prior to procedure. ASSESSMENT AND PLAN: This is a 67-year-old female with lumbosacral spondylosis, lumbosacral degenerative disc disease, lumbar facet arthropathy, status post left-sided radiofrequency ablation of the medial branch L3 through S1. The patient will continue her current medications. The patient will follow up in approximately 2 weeks for reevaluation. 02/20/18804 <Electronically signed by Brandon Cuellar MD> Date Brandon Cuellar MD CC: Brandon Cuellar; Broderick Mi DO Signed BEDSIDE GLUCOSE Collected: 02/20/2018 Status: F Source: [place] 6:19 AM [facility] REPOSITORY TYPE CODE TESTS RESULT OUT OF RANGE REFERENCE UNITS LAB L501.080 70-110 mg/dL Normal BEDSIDE GLU 92 Result Comment: MANAGEMENT OF PATIENT CARE PER NURSING PROTOCOL Performed By: #### L501.080 #### [facility] Laboratory Point of Care [address] [place] [address] L/S SPINE MIN 4 Observed: 02/20/2018 Status: F Source: [place] VIEWS 3:36 AM [facility] REPOSITORY [facility] Imaging Services [address] [place] [address] L/S Spine Min 4 Views MR#: [id number] Acct: [id number] Name: SILVIA ROSADO Rep #: [id number] : 1950 F 67 From: Maria Teresa Clement MD PCP: Broderick Mi DO Status: [facility] Study: L/S Spine Min 4 Views Date of Exam: 02/20/18 Exam# [id number] Ordering Dr: Brandon Cuellar MD STUDY: X-RAY - LUMBAR SPINE REASON FOR EXAM: Female, 67 years old. Radiofrequency ablation L3-S1. TECHNIQUE: 13 view(s) of the lumbar spine were obtained. COMPARISON: None FINDINGS: 13 spot images were submitted, as radiology support for c- arm imaging in the operating room. This is not a diagnostic examination. Images for documentation purposes only. Fluoroscopy time if reported: 24.8 seconds. 7.77 mGy RAD/L/S Spine Min 4 Views IMPRESSION: Intraoperative fluoroscopic image guidance. Electronically Signed: Maria Teresa Clement MD at 0:02 EST , Service support , CC: Brandon Cuellar; Broderick Mi DO Freight Flagman: Signed RE-EVALUATION - PT (1) Observed: 12/30/2017 Status: F Source: [place] 7:32 AM [facility] REPOSITORY [facility] Physical Therapy [facility] [address] [place] [address]. [address] [place], [place] [address] Fax REEVALUATION / MEDICARE RECERTIFICATION PHYSICAL THERAPY MR#: [id number] Acct: [id number] Name: SILVIA ROSADO Rep #: [id number] : 1950 67 From: Reyna Maher PT, Cert. T, OCS Referring Dr.: Yarelis Mehta Status: REG RCR Insurance: [facility] SELF PAY INSURANCE FAISAL Robertson, It has been my pleasure to treat SILVIA ROSADO over the last 21 visits for LUMBAR SPINAL STENOSIS, DDD, FACET ARTHROPATHY AND RADICULOPATHY. Please see the progress note below for an update on the physical therapy plan of care! Subjective: Doing okay ..would like to do Aquatic ex's ,land ex's would agrravate my symptoms. Patien has shown small gains with function and gait walking for example store Objective/Function: POSTURE: mild foward posture. GAIT: ambulated with cane mild foward posture. antalgic gait. NEURO: denies parathesai/tingling,reflexes L3-4,L4-5,L5-S 1/3. MMT: quad/hams 4-/5,hip flexion right 4-/5,left 3+/5. LUMBAR ROM: mod loss flexion,extesnion mod /severe loss Plan Plan: Cont with PT interventions Aquatic 2 xweek for 3weeks Goals Goal 1:: DECREASE C/O BACK AND CHANO LE SX'S Goal Time Frame: 4-6 Weeks Goal Progress: Progressing Goal 2:: IMPROVE PERSONAL CARE, LIFITNG, WALKING, STANDING, SOCIAL LIFE, TRAVEL AND HOMEMAKING FUNCTION Goal Time Frame: 4-6 Weeks Goal Progress: Progressing Goal 3:: INSTRUCT IN PROPHYLAXIS Goal Time Frame: 4-6 Weeks Goal Progress: Progressing Anticipated Interventions Patient/Client Instruction: Educate patient on: Condition, Plan of Care, Risk Factors, Benefits of Fitness Program For the Purpose of:: To improve self management Therapeutic Exercise to Include: Strength training, Endurance training, Balance training, Body mechanics, Postural training, Flexibilty training, In an aquatic setting, Active ROM, Dynamic Lumbar Stabilization For the Purpose of:: To decrease pain, To increase ROM, To improve muscle performance and motor function, To improve ability to perform ADL's, To increase tolerance to activity/condition/position, To improve ability of physical actions for home/community/work/leisure, To improve gait and locomotor functions Please do not hesitate to contact me at [phone] by phone or if you have questions or concerns regarding this new plan of care! Sincerely, Reyna Maher PT, <Electronically signed by Reyna Maher PT, Cert. [facility]> 12/30/17 0732 CC: Yarelis Mehta; Broderick Mi DO MIKE Signed For Medicare only, by signing this I certify the plan of care. Physicians Signature Date OPERATIVE REPORT Observed: 12/19/2017 Status: F Source: [place] 3:42 PM [facility] REPOSITORY [facility] Medical Records Department [address] [place] [address] Operative Report 12/19/17 1540 MR#: [id number] Acct: [id number] Name: SILVIA ROSADO Rep #: [id number] : 1950 67 From: Brandon Cuellar MD PCP: Brodercik Mi DO Status: [facility] [place] [facility] [place] List (1) Sacrococcygeal disorders, not elsewhere classified Status: Chronic (2) Bilateral sacroiliitis Status: Chronic Report of Operation Date of Procedure: 12/19/17 Pre-Operative Diagnosis: Sacroiliitis, SI joint dysfunction Post-Operative Diagnosis: Sacroiliitis, SI joint dysfunction Surgery/Procedure Performed:: Right sided sacroiliac joint steroid injection under fluoroscopic guidance Description of Surgical Findings:: PROCEDURE: Right sacroiliac joint steroid injection under fluoroscopic guidance PREOPERATIVE DIAGNOSIS: Sacroiliitis, sacroiliac joint dysfunction POSTOPERATIVE DIAGNOSIS: Sacroiliitis, sacroiliac joint dysfunction ANESTHESIA: MAC COMPLICATIONS: None BLOOD LOSS: Minimal PROCEDURE IN DETAIL: History and physical today was reviewed. Risks and benefits of the procedure were explained. The patient understood, agreed to our procedure, and informed consent was obtained. IV inserted per routine protocol. The patient was taken to the operating room, placed in a prone position with a pillow positioned underneath the abdomen. The lower back and buttock area was prepped and draped in a sterile fashion using iodine 3 no direct visualization of fluoroscopy at approximately 15 angle of the bilateral sacroiliac joints were visualized skin and subcutaneous tissue were anesthetized approximately 5 cc of 1% lidocaine using a 25-gauge regular needle under direct visualization with fluoroscopy at approximately 15 angle starting on the right SI a 22-gauge 3-1/2 inch spinal needle the needle was advanced via the skin the tip of the knee was maneuvering directed towards the inferior one third of the posterior SI joint once the tip of the needle was at the vicinity of the joint after negative aspiration for blood or CSF a total of 1 cc of contrast were injected to confirm correct placement of the needle as well as cephalocaudad spread the confirmation was obtained on AP as well as oblique view after repeated negative aspiration and confirmation a total of 4 cc of preservative-free 0.25% Marcaine with 40 mg of Depo-Medrol were injected in and around the SI joint the needles were then removed intact. The patient experienced no signs or symptoms intrathecal, intravascular injection. The patient experienced no paraesthesia. The procedure was completed without any apparent difficult, any complication. The patient appeared to tolerate well. ASSESSMENT AND PLAN: This is a 67-year-old female with sacroiliitis, sacroiliac joint dysfunction status post right sacroiliac joint steroid injection under fluoroscopic guidance. The patient will continue his current medications. The patient will follow in approximately 2 weeks for possible repeat of the procedure if indicated. 12/19/17 1542 <Electronically signed by Brandon Cuellar MD> Date Brandon Cuellar MD CC: Brandon Cuellar; Broderick Mi DO Signed BEDSIDE GLUCOSE Collected: 12/19/2017 Status: F Source: [place] 9:24 AM [facility] REPOSITORY TYPE CODE TESTS RESULT OUT OF RANGE REFERENCE UNITS LAB L501.080 70-110 mg/dL Normal BEDSIDE GLU 87 Result Comment: MANAGEMENT OF PATIENT CARE PER NURSING PROTOCOL Performed By: #### L501.080 #### [facility] Point of Care [address] [place] [address] S-I JTS 3 OR MORE Observed: 12/19/2017 Status: F Source: [place] VIEWS 1:56 AM [facility] REPOSITORY [facility] Imaging Services [address] [place] [address] S-I Jts 3 or More Views MR#: [id number] Acct: [id number] Name: ALONZOSILVIA Aidan Rep #: [id number] : 1950 F 67 From: Dwight Cleary MD PCP: Broderick Mi DO Status: DEP SDC Study: S-I Jts 3 or More Views Date of Exam: 12/19/17 Exam# [id number] Ordering Dr: Brandon Cuellar MD STUDY: RIGHT SI JOINT INJECTION. REASON FOR EXAM: Female, 67 years old. Right-sided back pain. FLUOROSCOPY TIME (if supplied): (0:10) minutes/seconds. 3 cone down views were obtained intraoperatively. TECHNIQUE: A right SI joint injection was performed by the pain management physician. COMPARISON: None. FINDINGS: The spinal needle is seen within the right sacroiliac joint. RAD/S-I Jts 3 or More Views IMPRESSION: Fluoroscopic imaging provided for right sacroiliac joint injection. Electronically Signed: Dwight Cleary MD at 15:37 EDT Tel [phone], Service support , CC: Brandon Cuellar; Broderick Mi DO [employer]: Signed DOWNTIME REPORT Observed: 09/21/2017 Status: F Source: [place] 2:07 PM [facility] Medical Records Department [address] [place] [address] [place] [address] Downtime Report MR#: [id number] Acct: [id number] Name: SILVIA ROSADO Rep #: [id number] : 1950 67 From: Stevo Sinha MD PCP: Broderick Mi DO Status: DEP This patient was seen during an EMR downtime September 05, 2017 - September 12, 2017. This patient may have a combination of paper and electronic documentation or all paper documentation. All documentation is viewable within the e-chart portion of [employer] for each patient visit. RE-EVALUATION - PT (1) Observed: 09/19/2017 Status: F Source: [place] 11:33 AM [facility] Physical Therapy [facility] [address] [place] [address]. [address] [place] [address] Fax REEVALUATION / MEDICARE RECERTIFICATION PHYSICAL THERAPY MR#: [id number] Acct: [id number] Name: SILVIA ROSADO Rep #: [id number] : 1950 67 From: Erika Ibarra PT, Cert. MDT Referring Dr.: Yarelis Mehta Status: REG RCR Insurance: [facility] SELF PAY INSURANCE FAISAL Robertson, It has been my pleasure to treat SILVIA ROSADO over the last 9 visits for LUMBAR SPINAL STENOSIS, DDD, FACET ARTHROPATHY AND RADICULOPATHY. Please see the progress note below for an update on the physical therapy plan of care! Subjective: PATIENT REPORTS SHE MISSED SOME POOL APPOINTMENTS DUE TO OTHER APPOINTMENTS AND WANTS TO DO MORE POOL WITH US. I'M HAVING ANOTHER SHOT NEXT TUESDAY ON THE RIGHT LOW BACK. PATIENT REPORTS IT DOESN'T HURT HER WHEN SHE EX'S IN THE POOL AND EVEN THOUGH SHE FEELS IT WHEN SHE GETS OUT SHE FEELS LIKE IT HELPS HER TO BE ABLE TO BE MORE ACTIVE OVER-ALL. PATIENT IS GOING TO CONSIDER JOINING THE [employer] OR DAYS INN TO CONTINUE WATER EX POST PT. Objective/Function: UPON EXAM, THERE ARE NO SIGNIFICANT CHANGES IN FUNCTIONAL ROM OR STRENGTH BUT PATIENT IS REPORTING DECREASED PAIN FROM THE INJECTION AND A DESIRE TO CONTINUE AQUATIC THERAPY AGAIN. SHE REPORTS CONTINUED IMPROVEMENT OVER THE PAST MONTH WELL. INDEP GAIT INTO PT WITH A STRAIGHT CANE WITH FAIR CADANCE COMPARED AND NO LOSS OF BALANCE. STILL UNABLE/DOES NOT WANT TO ATTEMPT TO TRANSFER SIT TO STAND WITHOUT UE ASSIST. STILL UNABLE TO SLS ON EITHER LEG MORE THAN A FEW SECONDS WITHOUT UE ASSIST AND PATIENT IS NERVOUS WITH TESTING. Motor deficit: CHANO LE GENERALIZED WEAKNESS GRADED 4-/5. Sensory deficit: NO. ROM deficit: CHANO KNEE FULL EXT TO 100 DEG FLEX ON THE RIGHT AND 92 DEG FLEX ON THE LEFT. SHE REPORTS EVERY DAY IS DIFFERENT WITH HER KNEES. TIGHT CHANO HS'S, AND GASTROC SOLEUS COMPLEX'S. Dural Signs: POSITIVE CHANO LE'S. Lumbar mvmt loss: flex - MOD. ext - YESSICA. R SG - YESSICA. L SG - YESSICA. PATIENT IS ALSO TENTATIVE WITH LUMBAR ROM TESTING AND STOPS EACH DIRECTION WHEN IT HURTS. Core strength: POOR. Palpation: SHE DOES HAVE ACUTE TENDERNESS IN THE RIGHT LUMBOSACRAL REGIONS TODAY. INJECTION PENDING NEXT WEEK. Plan Plan: RECOMMEND CONTINUED AQUATIC THERAPY 2X'S A WEEK X 3- 4 WEEKS PER ORIG POC WORKING TOWARD SAME GOALS. CONTINUE TO ENCOURAGE PATIENT TO GAIN ACCESS TO A POOL TO CONTINUE WATER EX POST PT. Goals Goal 1:: DECREASE C/O BACK AND CHANO LE SX'S Goal Time Frame: 4-6 Weeks Goal Progress: Progressing Goal 2:: IMPROVE PERSONAL CARE, LIFITNG, WALKING, STANDING, SOCIAL LIFE, TRAVEL AND HOMEMAKING FUNCTION Goal Time Frame: 4-6 Weeks Goal Progress: Progressing Goal 3:: INSTRUCT IN PROPHYLAXIS Goal Time Frame: 4-6 Weeks Goal Progress: Progressing Anticipated Interventions Patient/Client Instruction: Educate patient on: Condition, Plan of Care, Risk Factors, Benefits of Fitness Program For the Purpose of:: To improve self management Therapeutic Exercise to Include: Strength training, Endurance training, Balance training, Body mechanics, Postural training, Flexibilty training, In an aquatic setting, Active ROM, Dynamic Lumbar Stabilization For the Purpose of:: To decrease pain, To increase ROM, To improve muscle performance and motor function, To improve ability to perform ADL's, To increase tolerance to activity/condition/position, To improve ability of physical actions for home/community/work/leisure, To improve gait and locomotor functions Please do not hesitate to contact me at [phone] by phone or if you have questions or concerns regarding this new plan of care! Sincerely, Erika Ibarra <Electronically signed by Erika Ibarra PT, Cert. MDT> 09/19/17 1133 CC: Yarelis Burchunc healthCrystal Mi DO STEFFANY Signed For Medicare only, by signing this I certify the plan of care. Physicians Signature Date MISCELLANEOUS LAB Collected: 08/02/2017 Status: F Source: [place] PROCEDURE 3:15 PM [facility] REPOSITORY Order Comment: Comments: [id number] TRAMADOL SER RF Test(s) Ordered: [id number] TRAMADOL SER RF TYPE CODE TESTS RESULT OUT OF RANGE REFERENCE UNITS LAB L801.1541 Normal [facility] [place] Result Comment: TEST RESULT FLAG UNITS REF INTERVAL Tramadol 111 Low ng/mL 150 - 800 Detection Limit = 1 [facility] ORIGINAL REPORT ON FILE IN LAB CONTAINS ADDITIONAL TEST SITE INFORMATION. Performed By: #### L801.1541 #### [facility] [address] [place], [place], [address] INITAL EVALUATION (1) Observed: 07/19/2017 Status: F Source: [place] Kang PT 12:02 PM [facility] REPOSITORY [facility] Physical Therapy [facility] [address] [place] [address]. [address] [place] [address] Fax REHABILITATION SERVICES INITIAL EVALUATION MR#: [id number] Acct: [id number] Name: SILVIA ROSADO Rep #: [id number] : 1950 67 From: Erika Ibarra PT, Cert. MDT Referring DrArmani: Yarelis Mehta Status: REG RCR Insurance: [facility] [employer] [employer] SELF PAY INSURANCE Patient's Visit Information SILVIA ROSADO is a 67 year old F referred to Physical Therapy by FAISAL Robertson with a diagnosis of LUMBAR SPINAL STENOSIS, DDD, FACET ARTHROPATHY AND RADICULOPATHY. Date of Evaluation: 07/19/17 Physical Therapist: Erika Ibarra - Visit Plan Frequency: 2-3x /Week Duration: 4-6 Weeks Plan: AQUATIC THERAPY. POSTURE CORRECTION/STRENGTHENING, INSTRUCTION IN APPROPRIATE BODY MECHANICS AND ACTIVITY MODIFICATIONS. DLS STARTING WITH A NEUTRAL SPINE PROGRESSING ROM TOLERATED. CHANO LE ROM, STRETCHING AND STRENGTHENING. HEP INSTRUCTION. - Subjective Subjective: Diagnosis: LUMBAR SPINAL STENOSIS, DDD, FACET ARTHROPATHY AND RADICULOPATHY. Work/Leisure: UNEMPLOYEED. Disability: SSI DISABILITY FOR PSYCHIATRIC REASONS AND HER EYES. ON DISABILITY SINCE ABOUT AGE 43. Present symptoms: LOW BACK PAIN. CHANO LE WEAKNESS AND INTERMITTENT LEFT KNEE PAIN. RECENT HISTORY OF SHOOTING PAINS DOWN RIGHT LEG BUT RIGHT LEG IS BETTER SINCE SHOT ABOUT A MONTH AGO BY DR. FOY. Present since: CHRONIC. Pain Scale: WORST 7/10, LEAST 4/10. Currently: 4/10. Commenced as a result of: OA. Symptoms at onset: LOW BACK. Worse: WHEN I TRY TO DO TO MUCH. BEING UP AND AROUND TOO MUCH. Better: SITTING AND SOMETIMES LYING DOWN. Disturbed sleep: YES BUT NOT DUE TO LOW BACK PAIN. Previous history/Previous treatment: NO LOW BACK SURGERY. A LOT OF INJECTIONS. NO PT. NO CHIRO. Coughing/sneezing/straining: YES. Gait: CANE NEEDED. NOT USING CANE IN THE HOUSE. USES CANE WHEN SHE GOES OUT. Difficulty initiating urinatin: NO. Accidents: NO. Unexplained weight loss: NO. Imaging: RECENT WITH DR. FOY. PMH: PSYCHIATRIC ISSUE. SEE BELOW. - Objective Sitting Posture: POOR. Standing Posture: POOR. Lordosis: REDUCED. Lateral shift: NO. Relevant shift: N/A. Active Correction of posture: WORSE. Other Observations: INDEP GAIT INTO PT WITH A STRAIGHT CANE WITH SLOW ANTALGIC GAIT PATTERN. NO LOSS OF BALANCE. UNABLE TO TRANSFER SIT TO STAND WITHOUT UE ASSIST. UNABLE TO SLS ON EITHER LEG MORE THAN A FEW SECONDS WITHOUT UE ASSIST. Motor deficit: CHANO LE GENERALIZED WEAKNESS GRADED 4-/5. Sensory deficit: NO. ROM deficit: CHANO KNEE FULL EXT TO >100 DEG FLEX. TIGHT CHANO HS'S, AND GASTROC SOLEUS COMPLEX'S. Dural Signs: POSITIVE CHANO LE'S. Lumbar mvmt loss: flex - MOD. ext - YESSICA. R SG - YESSICA. L SG - YESSICA. Core strength: POOR. Palpation: NO ACUTE TENDERNESS IN THE LUMBOSACRAL OR HIP/PELVIC REGIONS TODAY - Goals Goal 1:: DECREASE C/O BACK AND CHANO LE SX'S Goal Time Frame: 4-6 Weeks Goal 2:: IMPROVE PERSONAL CARE, LIFITNG, WALKING, STANDING, SOCIAL LIFE, TRAVEL AND HOMEMAKING FUNCTION Goal Time Frame: 4-6 Weeks Goal 3:: INSTRUCT IN PROPHYLAXIS Goal Time Frame: 4-6 Weeks - Rehabilitation Potential Rehabilitation Potential: Fair - Anticipated Interventions Patient/Client Instruction: Educate patient on: Condition, Plan of Care, Risk Factors, Benefits of Fitness Program For the Purpose of:: To improve self management Therapeutic Exercise to Include: Strength training, Endurance training, Balance training, Body mechanics, Postural training, Flexibilty training, In an aquatic setting, Active ROM, Dynamic Lumbar Stabilization For the Purpose of:: To decrease pain, To increase ROM, To improve muscle performance and motor function, To improve ability to perform ADL's, To increase tolerance to activity/condition/position, To improve ability of physical actions for home/community/work/leisure, To improve gait and locomotor functions Thank you for the opportunity to evaluate your patient. For Medicare and Medicare HMO plans, please review the plan of care and approve it. It will need to be FAXED BACK to us at [phone] for Medicare purposes. Please let me know if there are questions or concerns regarding this plan of care. Physician Signature: Date: <Electronically signed by Erika Ibarra PT, Cert. MDT> 07/19/17 1202 CC: Yarelis Mehta; Broderick Mi DO STEFFANY Signed For Medicare only, by signing this I certify the plan of care. Physicians Signature Date ALLERGIES ALLERGIES DATE TYPE / CODE NAME / CODE REACTION SEVERITY SOURCE 03/23/2018 Drug oxycodone Other Unknown [facility]/416 HCl/[id number](R [facility] 471262(SNOM XNORM) Repository ED CT) 03/23/2018 Drug hydrocodone/F006 Other Unknown [facility] All[facility]/416 562106(RXNORM) Hospital 503197(SNOM Repository ED CT) ENCOUNTERS ENCOUNTERS ADMIT/DISCHARGE ACCOUNT ADMITTING ENCOUNTER LOCATION SOURCE NUMBER CLASS 03/23/2018/ [id number] [place] [facility] ing:ED Repository 03/20/2018/ [id number] Amb[place] [facility] 7 [facility] ing:SDCRoom: Repository AC15 03/13/2018/ [id number] Ambulatory [place] [facility] 4 [facility] ing:PT Repository 03/09/2018 [id number] Amb[place] 1 [facility] ing:OPBI Repository 02/20/2018/ [id number] Ambulatory [place] [facility] 9 [facility] ing:SDCRoom: Repository AC02 12/19/2017/ [id number] Amb[place] [facility] 8 [facility] ing:SDC Repository 09/06/2017/ [id number] Emergency [place] [facility] 7 [facility] ing:ED Repository 08/02/2017 [id number] Ambulatory [place] 3 [facility] ing:LAB Repository PAYERS PAYERS ENCOUNTER GUARANTOR PAYER SUBSCRIBER SOURCE 03/23/2018 SILVIA Matias [id number] E Insurance:[place] THOMPSONDOB: [address] PLNPolicy Number: Repository [id number]: 330 [id number] [phone] () Date:[id number] [address]FF: 03/23/2018 Secondary NOT GIVENUNK [place] Insurance:SELF PAY [facility] Number: Effective Repository Date:2018-03-23 03/20/2018 SILVIA Bermudez Primary SILVIA Matias [id number] E Insurance:[place] THOMPSONDOB: [address], [place] PLNPolicy Number: Repository [id number]: ([phone] [id number] [phone] (HP) Date:9218-77-03IM [address] [address]IW: 03/20/2018 Secondary NOT GIVENUNK [place] Insurance:SELF PAY [facility]: Effective Repository Date:2018-03-10 03/13/2018 SILVIA Bermudez Primary SILVIA Bermudez [place] [id number] E Insurance:[place]HE[place] THOMPSONDOB: [address], [place] PLNPolicy Number: Repository [id number]: 330 [id number] [phone] (HP) Date:5810-53-91DI [address] [address]UW: 03/13/2018 Secondary NOT GIVENUNK [place] Insurance:SELF PAY [facility] Number: Effective Repository Date:2017-07-05 03/09/2018 SILVIA Bermudez Primary SILVIA Bermudez [place] [id number] E Insurance:[place] THOMPSONDOB: [address] PLNPolicy Number: Repository [id number]: 330 [id number] [phone] () Date:5263-63-76EE [address] [address]GD: 03/09/2018 Secondary NOT GIVENUNK [place] Insurance:SELF PAY [facility] Number: Effective Repository Date:2018-01-24 02/20/2018 SILVIA Bermudez Primary SILVIA Bermudez [place] [id number] E Insurance:[place] THOMPSONDOB: [facility] [id number]NPolicy Number: Repository [id number]: 330 [id number] [phone] () Date:1345-86-41GA [address] [address]DI: 02/20/2018 Secondary NOT GIVENUNK [place] Insurance:SELF PAY [facility] Number: Effective Repository Date:2018-02-16 12/19/2017 Silvia Bermudez Primary Silvia Bermudez [place] [id number] E Insurance:UNITEDHEALT ThompsonDOB: [facility] [id number] PLNPolicy Number: Repository [id number]: 330 [id number] [phone] (HP) Date:9921-84-84KH [address] [address]HK: 12/19/2017 Secondary NOT GIVENUNK [place] Insurance:SELF PAY [facility] Number: Effective Repository Date:2017-12-13 09/06/2017 Silvia C Primary Silvia Bermudez [place] [id number] E Insurance:UNITEDHEALT ThompsonDOB: [facility] [id number] PLNPolicy Number: Repository [id number]: 330 [id number] [phone] () Date:1782-19-16UU [address] [address]LG: 09/06/2017 Secondary NOT GIVENUNK [place] Insurance:SELF PAY [facility] Number: Effective Repository Date:2017-09-06 08/02/2017 Silvia C Primary Silvia Bermudez [place] [id number] E Insurance:UNITEDHEALT ThompsonDOB: [facility] [id number] PLNPolicy Number: Repository [id number]: 330 [id number] [phone] () Date:1078-36-41XM [address] [address]QW: 08/02/2017 Secondary NOT GIVENUNK [place] Insurance:SELF PAY [facility] Number: Effective Repository Date:2017-08-02
== END 2018-03-20 10:02 | disposition home or self-care (01) ==
LOC: SDC 06:51 → AC 06:51
PROVIDERS: Family Provider Preventive Medicine Occupational Medicine; PCP Preventive Medicine Occupational Medicine; Referring Provider Anesthesiology Pain Medicine; Visit Provider Anesthesiology Pain Medicine
PROC: (CPT 64635; principal; 2018-03-20 08:45)
DX: M47.817 Spondylosis without myelopathy or radiculopathy, lumbosacral region (principal); M51.37 Other intervertebral disc degeneration, lumbosacral region; F41.9 Anxiety disorder, unspecified; F32.9 Major depressive disorder, single episode, unspecified; E11.9 Type 2 diabetes mellitus without complications; Z79.899 Other long term (current) drug therapy; Z79.84 Long term (current) use of oral hypoglycemic drugs; I10 Essential (primary) hypertension; F17.200 Nicotine dependence, unspecified, uncomplicated; M19.90 Unspecified osteoarthritis, unspecified site; Z79.891 Long term (current) use of opiate analgesic
CPT/HCPCS: 01936; 64635; 64636 ×3; 72110; 76000; 82962; J7120

== ENCOUNTER 2018-03-23 08:24 | Emergency (ER) | payer MEDICAID, SELFPAY ==
[2018-03-23 08:25] VITALS: BP 126/81; PULSE 92; RESP 18; TEMP 36.6; O2SAT 97; BMI 37.2
[2018-03-23 08:33] VITALS: TEMP 37.7
--- NOTE | 2018-03-23 08:37 | ED.VISSUMM ---
- ER Visit Summary Date of Service: 03/23/18 Chief Complaint: [] Right upper dental pain mild facial swelling for a few days History of Present Illness: The patient is a 68 F [] reports that basically for a few days she has had pain over what she knows to be decaying right upper teeth she has some mild facial swelling she was seen by her dentist about a month ago recommend these teeth be extracted she refused and presents for evaluation. No other complaints no change in vision no eye pain no fever cough, Physical Examination: [] 120/80 afebrile General, no distress resting comfortably HEENT is generally unremarkable except for there is some very mild right facial swelling over the cheek, there are at least 2 decaying teeth to the right upper mandible there is no drainage no gingival gumline swelling she has multiple extractions, there is no drainage no airway issues for the mouth is normal no Kevin's breathing normally speaking normally The neck is supple no adenopathy Cardiovascular, regular rate and rhythm Lungs, clear bilateral Abdomen, soft nontender Extremities, no clubbing cyanosis or edema Neurologic, awake alert answering questions appropriately moving all 4 extremities Test Results: [] Emergency Department Course and Treatment: [] Time she will be started on Pen-Vee K Naprosyn she is not allergic to hydrocodone or oxycodone she will be given 2 hydrocodone tablets use at bedtime and she will follow-up with her dentist for further management Treatment Plan: [] Disposition: [] Home stable Impression: [] Dental decay dental pain This note was generated with [employer] dictation software. It may contain incorrect words, spelling, and punctuation that were not noted in review of the chart prior to signing ED Disposition - Plan for ED Patient: Chief Complaint: Dental Referrals: Broderick Mi DO [Primary Care Provider] -
--- NOTE | 2018-03-23 08:41 | ED.DCSUM_ITS ---
- ER Visit Summary Date of Service: 03/23/18 Chief Complaint: [] Right upper dental pain mild facial swelling for a few days History of Present Illness: The patient is a 68 F [] reports that basically for a few days she has had pain over what she knows to be decaying right upper teeth she has some mild facial swelling she was seen by her dentist about a month ago recommend these teeth be extracted she refused and presents for evaluation. No other complaints no change in vision no eye pain no fever cough, Physical Examination: [] 120/80 afebrile General, no distress resting comfortably HEENT is generally unremarkable except for there is some very mild right facial swelling over the cheek, there are at least 2 decaying teeth to the right upper mandible there is no drainage no gingival gumline swelling she has multiple extractions, there is no drainage no airway issues for the mouth is normal no Kevin's breathing normally speaking normally The neck is supple no adenopathy Cardiovascular, regular rate and rhythm Lungs, clear bilateral Abdomen, soft nontender Extremities, no clubbing cyanosis or edema Neurologic, awake alert answering questions appropriately moving all 4 extremities Test Results: [] Emergency Department Course and Treatment: [] Time she will be started on Pen- Vee K Naprosyn she is not allergic to hydrocodone or oxycodone she will be given 2 hydrocodone tablets use at bedtime and she will follow-up with her dentist for further management Treatment Plan: [] Disposition: [] Home stable Impression: [] Dental decay dental pain This note was generated with [employer] dictation software. It may contain incorrect words, spelling, and punctuation that were not noted in review of the chart prior to signing ED Disposition - Plan for ED Patient: Chief Complaint: Dental Referrals: Broderick Mi DO [Primary Care Provider] -
--- NOTE | 2018-03-23 08:41 | ED.DEP ---
ED Disposition - Plan for ED Patient: Chief Complaint: Dental Instructions: ED Tooth Pain, ED Cavity Dental Prescriptions: Hydrocodone Bitart/Apap 5-325 [[place] 5MG-325MG] 1 tab PO Q4H PRN PRN 2 Days #2 tab PRN Reason: Pain Naproxen [Naprosyn] 500 mg PO BID PRN #20 tab Penicillin V Potassium 500 mg PO 4X/DAY #40 tab Referrals: Broderick Mi DO [Primary Care Provider] -
--- NOTE | 2018-03-23 08:55 | ED.DEP ---
ED Disposition - Plan for ED Patient: Chief Complaint: Dental Instructions: ED Tooth Pain, ED Cavity Dental Prescriptions: Hydrocodone Bitart/Apap 5-325 [[place] 5MG-325MG] 1 tab PO Q4H PRN PRN 2 Days #2 tab PRN Reason: Pain Naproxen [Naprosyn] 500 mg PO BID PRN #20 tab Penicillin V Potassium 500 mg PO 4X/DAY #40 tab Referrals: Broderick Mi DO [Primary Care Provider] -
[2018-03-23] MEDS: Naproxen 500 MG Tablet PO (08:56)
[2018-03-23] MEDS: Penicillin Vk 250 MG Tablet 500 MG PO (08:56)
--- NOTE | 2018-03-23 08:58 | DCINST.ED_ITS ---
ED Disposition - Plan for ED Patient: Chief Complaint: Dental Instructions: ED Tooth Pain, ED Cavity Dental Prescriptions: Hydrocodone Bitart/Apap 5-325 [[place] 5MG-325MG] 1 tab PO Q4H PRN PRN 2 Days #2 tab PRN Reason: Pain Naproxen [Naprosyn] 500 mg PO BID PRN #20 tab Penicillin V Potassium 500 mg PO 4X/DAY #40 tab Referrals: Broderick Mi DO [Primary Care Provider] -
--- NOTE | 2018-03-23 09:40 | CM.ED ---
Social Work Assessment Referral Date: 03/23/2018 Date of Assessment: 03/23/2018 Informant: Self-referral Reason for Consult: Dental Pain, 68 and no Medicare, Hx of Mental Health Dx Information obtained from: Medical record and pt. Pt is sitting upright in bed upon presentation and presents with pleasant affect. Pt is alert and oriented x4 and agreeable to participate in assessment. Living Arrangements: Pt reports to live with her son in a two-story home with stairs. Denies access issues and claims to be independent with ADL's. She does use a cane at her baseline and has a walker from a past knee replacement, but does not use presently. Education: Pt reports to have graduated high school, and received an associate's degree in liberal arts. Denies any issues with reading or writing and no comprehension issues. Employment/Financial: Pt is retired, and receives SS. She does not have Medicare d/t premium cost. States that her sister has it, and it's cheaper for her to get on Medicaid with her low SS. States with Medicare she could only see her dentist once a year, and with Medicaid she can twice a year. Pt declines information on how to receive Medicare as she states she will opt to remain on Medicaid. Transportation: Barrera, her son, can drive, and she also utilizes her Medicaid for appointments, and taxi vouchers through [employer]. Supports: Pt identifies her son, Barrera, and her case management assistant, Martin, through [facility] as her primary supports. Social/Family Stressors: Pt denies any social or family stressors. Does identify the dental pain as a source of stress presently. She states that her dentist, Dr. Crump is out of the office until 04/12, and the [facility] he refers pt's to on his offices phone line gave her an appointment on 04/14 that she states she will have access too. Mental Health History: Pt reports a hx of bipolar. She is a pt at [facility] and does not see a counselor, but sees Dr. Zapata every 3 months. Her next appointment is 05/09/2018. She also has a case management assistant through [facility], Martin Zarco. Denies any issues obtaining medications and reports that her preferred pharmacy is [facility]. Substance Use History: Pt reports a hx of tobacco use approximately 1ppd. Denies any other substance use at this time. Interventions: Educate to other dental clinics that accept [facility]. Pt opts to stay with her appointment in [place] on 04/14/2018. Provide emotional support for mental health and ensure pt is following up with appropriate professionals. Educate to Medicare and benefits that pt would be eligible for at age 68, and pt declines at this time. Pt denies further needs, and is linked with appropriate community resources. PLAN: Home with support of son. Evelyne Oshea Abhijeet, [employer], [employer]
[2018-03-23 09:53] VITALS: TEMP 37.2
== END 2018-03-23 10:00 | disposition home or self-care (01) ==
PROVIDERS: Emergency Provider Emergency Medicine; Family Provider Preventive Medicine Occupational Medicine; PCP Preventive Medicine Occupational Medicine
DX: K02.9 Dental caries, unspecified (principal); K08.89 Other specified disorders of teeth and supporting structures
CPT/HCPCS: 99285

== ENCOUNTER 2018-07-03 06:02 | Day surgery (SDC) | payer MEDICAID, SELFPAY ==
--- NOTE | 2018-06-28 16:23 | HP.PCM_ITS ---
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) Degeneration of intervertebral disc of lumbosacral region (Chronic) Bipolar disorder (Chronic) HTN (hypertension) (Chronic) Diabetes (Chronic) Allergies hydrocodone Adverse Reaction (Verified 03/23/18 08:30) Other oxycodone HCl [From Percocet] Adverse Reaction (Verified 03/23/18 08:30) Other Home Medications: Ambulatory Orders Medication Instructions Recorded Amlodipine [Norvasc] 5 mg PO DAILY 07/02/14 Metformin HCl [Glucophage] 500 mg PO BIDCM 07/02/14 traMADol [Ultram (G)] 50 mg PO BID 07/02/14 Bisacodyl [Dulcolax] 10 mg PO DAILY 10/21/14 Atenolol [Tenormin (Beta Chavez)] 50 mg PO QHS 12/14/17 Docusate Sodium [Colace] 100 mg PO BID 12/14/17 Escitalopram Oxalate [Lexapro] 10 mg PO QHS 12/14/17 Lisinopril [Prinivil] 5 mg PO DAILY 12/14/17 Quetiapine Fumarate [Seroquel] 600 mg PO QHS 12/14/17 RX: Tizanidine HCl 4 mg PO BID 12/14/17 RX: Naproxen [Naprosyn] 500 mg PO BID PRN #20 tab 03/23/18 RX: Penicillin V Potassium 500 mg PO 4X/DAY #40 tab 03/23/18 Smoking Status: Current every day smoker Subjective: Chief Complaint: follow up/medication refill History of Present Illness: This is a 68 Y/O Female who was seen and evaluated at our office today as a follow up. Pain: lower back Quality: constant but varies in intensity Region: pain in the center of the lower back radiates across into either side. Severity: aching,occasional sharp Timin Aggravated by: standing, walking Relieved by: sitting or laying down Pain score (out of 10): 6/10 Other info: Patient here for follow up for right side lower back pain. States aching and sometimes sharp depending on activity. States pain is worse when she gets up before medication. States pressure from waist to lower back and states sometimes her arms and legs hurt when she first gets up in morning. Needs refill on Tramadol, pt states the medication helps to keep her pain managed. Review of Systems: Patient denies any fever, chills, headache, change in weight without trying, vision or hearing problems. No cp, sob, rodriguez, pnd, orthopnea, or peripheral edema.They note no lumps or swollen glands, no new rashes, changing moles, or change in bowel or bladder function. Mood has been good overall. Past Medical History: h/o Type II Diabetes h/o hyperlipidemia h/o depression h/o migraines h/o HTN h/o schizophrenia h/o chronic urticaria h/o osteoarthritis h/o Arthritis h/o osteoarthritis h/o Bi-polar h/o anxiety h/o hallucinations h/o suicidal attempts s/p left TKR 2014 s/p tubal ligation 1995 s/p liliana cataract sx 1994 s/p tonsillectomy 1972 s/p Left knee ligament 196 Family History: ======== Structured Family History ======== Family History: depression Social History: [Tobacco: Current every day smoker (1 ppd x 50 yrs = 50 pk yrs) Start Date: 08/06/2016 Pipe Smoker: No Cigar Smoker: No Chewing Tobacco User: No] Living situation: Single, lives with her son 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 drugs: Denies Allergies: Seasonal, Enviromental, atorvastatin Medications: 1) atenolol 50 mg oral tablet, One tablet at night 2) busPIRone 10 mg oral tablet, 2 tablets TID 3) DOK 100 mg oral capsule, One tablet BID 4) escitalopram 10 mg oral tablet, One tablet daily 5) Fleet Bisacodyl 5 mg oral delayed release tablet, 1 tab po prn 6) fluticasone 50 mcg/inh nasal spray, 2 sprays each nostril qday 7) lactulose 20 g oral powder for reconstitution, 15-30ml qday prn 8) lisinopril 5 mg oral tablet, One tablet daily 9) metFORMIN 500 mg oral tablet, One tablet BID 10) Multiple Vitamins oral tablet, One tablet daily 11) Norvasc 5 mg oral tablet, One tablet daily 12) PT to eval and treat 13) SEROquel 200 mg oral tablet, takes along w/ the 400mg at night 14) SEROquel 400 mg oral tablet, One tablet at night 15) SUMAtriptan 100 mg oral tablet, 1 tab po qday as directed prn 16) traMADol 50 mg oral tablet, 1 tablet bid as need for pain 17) tramadol blood level 18) xray of lumbar spine, M54.5 Physical Examination: Wt: 215 lb Ht/Ln: 62.5 in BMI: 38.7 BP: 127/74 Pulse: 59 RR: 16 Temp: 98.2F Pain: 6 Well nourished and well developed in no acute distress. Alert and oriented to person, place and time. Affect is normal and appropriate. Mucosa pink and moist. Respirations even and unlabored. Neck is supple without significant lymphadenopathy or thyromegaly. Abdomen soft & non-tender. No HSM or masses appreciated. Extremities show no cyanosis, clubbing, or edema. Gait is Antalgic. Lumbar paraspinal muscle tenderness worse on the right. Lumbar ROM is limited due to pain Bilateral lumbar facet loading is positive SLR is negative. Sacroiliac Joint Tenderness on palpation much improved. Motor and sensory exam is unchanged. 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 ((M48.06): (M51.36): (M46.96): (M54.16): (Z79.891):) PRESCRIBE: PT to eval and treat (# Degenerative lumbar spinal stenosis (M48.06): # Degeneration of lumbar intervertebral disc (M51.36): # Arthropathy of lumbar facet (M46.96): # Lumbar radiculopathy (M54.16): # Muscle pain (M79.1):) Continue current medication regime OARRS was reviewed today. UDS was performed today and will be reviewed on the next encounter to monitor pt medications compliance. SOAPP score is 13 There are no signs of diversion or addiction with the pt, there is also no signs of abuse or misuse, continues to do well with their medications without any side effects, we will continue monitoring the pt closely. Reviewed with the pt today our opioid agreement and they appear to understand. PEG was reviewed today. Life style modifications were also discussed today and the pt appears to understand. Weight loss was recommended today through diet and exercise. Risks and benefits of the above meds were discussed with the pt and they appear to understand. The common side effects of the medications were discussed and all of their questions and concerns were answered and they appear to understand Discussed natural and expected course of this diagnosis and need to alert me if symptoms do not follow expected course, or if any worse. Pt is to continue with her PT and HEP and aquatherapy. Pt has tried multiple modalities, we will schedule the pt for a right lumbar radio frequency ablation L3-S1 as the pt has had excellent relief from this procedure in the past however, the relief has subsided. We have discussed the risks, benefits as well as alternatives of the procedure and the patient appears to understand and would like to proceed with the above plan. The above plan was discussed today with the pt in details and they appear to understand and agrees to continue with the plan. - Physical Exam Body Mass Index (BMI) 37.2 Finger Stick Blood Glucose 102 Assessment/Plan see above
[2018-07-03 06:24] VITALS: BP 132/73; PULSE 62; RESP 18; TEMP 36.7; O2SAT 97; BMI 38.3
[2018-07-03 06:36] LABS: Bedside Glucose 106 mg/dL (70-110)
--- NOTE | 2018-07-03 07:30 | RAD_ITS ---
PROCEDURE: Right L3-S1 radiofrequency ablation. DATE OF EXAMINATION: July 03, 2018. INDICATION: Female, 68 years old. Chronic low back pain. FLUOROSCOPY TIME (if supplied): (0:28) minutes/seconds. 9 coned-down views were obtained intraoperative. Intraoperative fluoroscopic services provided for right-sided L3-S1 radiofrequency ablation. RAD/L/S Spine Min 4 Views IMPRESSION: Intraoperative imaging provided for right L3-S1 radiofrequency ablation. Electronically Signed: Dwight Cleary, at 8:52 EDT , Service support ,
[2018-07-03] MEDS: Bupivacaine 0.25% 30 ML Vial (07:35)
[2018-07-03] MEDS: MethylPREDNISolone Acetate 80 MG/ML Vial (07:35)
[2018-07-03 07:56] VITALS: BP 127/72; BP 132/73; PULSE 57; RESP 17; TEMP 36.3; O2SAT 97
--- NOTE | 2018-07-03 07:58 | PCM.OPRPT ---
Problem List (1) Degeneration of intervertebral disc of lumbosacral region Status: Chronic (2) Spondylosis of lumbosacral region without myelopathy or radiculopathy Status: Chronic Report of Operation Date of Procedure: 07/03/18 Pre-Operative Diagnosis: Lumbosacral spondylosis, lumbosacral degenerative disc disease, lumbar facet arthropathy Post-Operative Diagnosis: Lumbosacral spondylosis, lumbosacral degenerative disc disease, lumbar facet arthropathy Surgery/Procedure Performed:: Right-sided lumbar radiofrequency ablation of the medial branch at L3, L4, L5, S1 Description of Surgical Findings:: PROCEDURE: Right-sided radiofrequency ablation of the medial branch L3, L4, L5, S1 PREOPERATIVE DIAGNOSES: Lumbosacral spondylosis, lumbosacral degenerative disc disease, lumbar facet arthropathy POSTOPERATIVE DIAGNOSES: Lumbosacral spondylosis, lumbosacral degenerative disc disease, lumbar facet arthropathy ANESTHESIA: MAC COMPLICATIONS: None BLOOD LOSS: Minimal PROCEDURE IN DETAIL: History and physical today was reviewed. Risks and benefits of procedure explained. The patient understood, agreed to the procedure and informed consent was obtained. IV inserted per routine protocol. The patient was taken to the operating room, placed in the prone position with a pillow positioned underneath the abdomen. The right side of the lower back was prepped and draped in a sterile fashion using iodine x 3. Under fluoroscopy guidance, on an oblique view, the L3 through S1 vertebral bodies were visualized. The skin and subcutaneous tissue was anesthetized with approximately 10 mL of 1% lidocaine using a 25-gauge regular needle. Under direct visualization with fluoroscopy at approximately 25-degree angle, starting on the right L3, ending on the right S1 passing through the L4-L5 using a 20-gauge 15 cm with a 10 mm curved active tip radiofrequency ablation needle the needle passed through the skin. The tip of the needle was maneuvered and directed towards the superior and medial gutter of the transverse process at the vicinity of the medial branch. Once the tip of the needle was in contact with the bone, the needle pulled approximately 2 mm up the bone. The stylet of each needle was then removed. After negative aspiration of blood with CSF and confirmation of AP as well as oblique view, radiofrequency ablation probe was then inserted at each level. Impedance was then recorded at L3 to be 253, at L4 294, at L5 220, at S1 213 ohm. Motor-evoked potential was then initiated to 1.5 volt without any motor response at each corresponding level. The probe was then removed intact and a total of 6 mL preservative-free 1% lidocaine was injected in divided doses between those 4 levels after negative aspiration of blood with CSF. The radiofrequency ablation probe was then reinserted after confirmation of AP, oblique as well as lateral view. Radiofrequency ablation was then initiated to 80 degrees Celsius for 90 seconds at each level. Once concluded, the probe was then removed intact and a total of 6 mL of preservative-free 0.25% Marcaine with 40 mg Depo-Medrol was injected in divided doses between those 4 levels. The needles were then removed intact. The patient experienced no signs or symptoms of intrathecal, intravascular injection. The patient experienced no paraesthesia. The procedure was completed without any apparent difficulty, any complication. The patient appeared to tolerate well. Sensory as well as motor exam was unchanged from prior to procedure. ASSESSMENT AND PLAN: This is a 68-year-old Female with lumbosacral spondylosis, lumbosacral degenerative disc disease, lumbar facet arthropathy, status post right-sided radiofrequency ablation of the medial branch L3 through S1. The patient will continue her current medications. The patient will follow up in approximately 2 weeks for reevaluation.
[2018-07-03 08:00] VITALS: BP 126/72; BP 132/73; PULSE 54; RESP 16; O2SAT 97
[2018-07-03 08:05] VITALS: BP 121/79; BP 132/73; PULSE 55; RESP 16; O2SAT 96
[2018-07-03 08:11] VITALS: BP 111/66; BP 132/73; PULSE 54; RESP 16; TEMP 36.2; O2SAT 95
[2018-07-03 08:35] VITALS: BP 132/73
== END 2018-07-03 09:00 | disposition home or self-care (01) ==
LOC: SDC 06:03 → AC 06:04
PROVIDERS: Family Provider Preventive Medicine Occupational Medicine; PCP Preventive Medicine Occupational Medicine; Referring Provider Anesthesiology Pain Medicine; Visit Provider Anesthesiology Pain Medicine
PROC: (CPT 64635; principal; 2018-07-03 07:15)
DX: M51.37 Other intervertebral disc degeneration, lumbosacral region (principal); M47.817 Spondylosis without myelopathy or radiculopathy, lumbosacral region; E11.9 Type 2 diabetes mellitus without complications; I10 Essential (primary) hypertension; F41.9 Anxiety disorder, unspecified; Z79.899 Other long term (current) drug therapy; E78.5 Hyperlipidemia, unspecified; F17.210 Nicotine dependence, cigarettes, uncomplicated; Z79.84 Long term (current) use of oral hypoglycemic drugs
CPT/HCPCS: 01936; 64635; 64636 ×3; 72110; 76000; 82962; J7120

== ENCOUNTER 2018-09-04 07:39 | Day surgery (SDC) | payer MEDICAID, SELFPAY ==
[2018-09-04 09:29] VITALS: BP 111/64; PULSE 54; RESP 16; TEMP 36.8; O2SAT 96; BMI 38.9
[2018-09-04 10:15] LABS: Bedside Glucose 101 mg/dL (70-110)
[2018-09-04] MEDS: Bupivacaine 0.25% 30 ML Vial (11:00)
[2018-09-04] MEDS: MethylPREDNISolone Acetate 80 MG/ML Vial (11:00)
--- NOTE | 2018-09-04 11:00 | RAD_ITS ---
STUDY: X-RAY - LUMBAR SPINE REASON FOR EXAM: Female, 68 years old. Radiofrequency ablation of lumbar spine. TECHNIQUE: 8 intraprocedural digital view(s) of the lumbar spine were obtained. COMPARISON: July 03, 2018 FINDINGS: 8 intraprocedural digital documentation images show needles on the right side of the L4-S1 vertebral bodies with contrast injection. The soft tissue structures are unremarkable. RAD/L/S Spine Min 4 Views IMPRESSION: Intraprocedural digital documentation images. Electronically Signed: Grayson Dow MD at 15:41 EDT , Service support ,
[2018-09-04 11:15] VITALS: BP 111/64; BP 124/67; PULSE 61; RESP 16; TEMP 36.2; O2SAT 100
[2018-09-04 11:20] VITALS: BP 111/64; BP 118/70; PULSE 58; RESP 16; O2SAT 97
[2018-09-04 11:25] VITALS: BP 111/64; BP 124/72; PULSE 58; RESP 16; O2SAT 97
[2018-09-04 11:30] VITALS: BP 111/64; BP 122/70; PULSE 58; RESP 16; TEMP 36.6; O2SAT 98
--- NOTE | 2018-09-04 11:49 | PCM.OPRPT ---
Problem List (1) Degeneration of intervertebral disc of lumbosacral region Status: Chronic (2) Spondylosis of lumbosacral region without myelopathy or radiculopathy Status: Chronic Report of Operation Date of Procedure: 09/04/18 Pre-Operative Diagnosis: Lumbosacral spondylosis, lumbosacral degenerative disc disease, lumbar facet arthropathy Post-Operative Diagnosis: Lumbosacral spondylosis, lumbosacral to disc disease, lumbar facet arthropathy Surgery/Procedure Performed:: Left-sided lumbar radio frequency ablation of the medial branch at L3, L4, L5, S1 Description of Surgical Findings:: PROCEDURE: Left-sided radiofrequency ablation of the medial branch L3, L4, L5, S1 PREOPERATIVE DIAGNOSES: Lumbosacral spondylosis, lumbosacral degenerative disc disease, lumbar facet arthropathy POSTOPERATIVE DIAGNOSES: Lumbosacral spondylosis, lumbosacral degenerative disc disease, lumbar facet arthropathy ANESTHESIA: MAC COMPLICATIONS: None BLOOD LOSS: Minimal PROCEDURE IN DETAIL: History and physical today was reviewed. Risks and benefits of procedure explained. The patient understood, agreed to the procedure and informed consent was obtained. IV inserted per routine protocol. The patient was taken to the operating room, placed in the prone position with a pillow positioned underneath the abdomen. The left side of the lower back was prepped and draped in a sterile fashion using iodine x 3. Under fluoroscopy guidance, on an oblique view, the L3 through S1 vertebral bodies were visualized. The skin and subcutaneous tissue was anesthetized with approximately 10 mL of 1% lidocaine using a 25-gauge regular needle. Under direct visualization with fluoroscopy at approximately 25-degree angle, starting on the left L3, ending on the left S1 passing through the L4-L5 using a 20-gauge 15 cm with a 10 mm curved active tip radiofrequency ablation needle the needle passed through the skin. The tip of the needle was maneuvered and directed towards the superior and medial gutter of the transverse process at the vicinity of the medial branch. Once the tip of the needle was in contact with the bone, the needle pulled approximately 2 mm up the bone. The stylet of each needle was then removed. After negative aspiration of blood with CSF and confirmation of AP as well as oblique view, radiofrequency ablation probe was then inserted at each level. Impedance was then recorded at L3 to be 286, at L4 275, at L5 222, at S1 305 ohm. Motor-evoked potential was then initiated to 1.5 volt without any motor response at each corresponding level. The probe was then removed intact and a total of 6 mL preservative-free 1% lidocaine was injected in divided doses between those 4 levels after negative aspiration of blood with CSF. The radiofrequency ablation probe was then reinserted after confirmation of AP, oblique as well as lateral view. Radiofrequency ablation was then initiated to 80 degrees Celsius for 90 seconds at each level. Once concluded, the probe was then removed intact and a total of 6 mL of preservative-free 0.25% Marcaine with 40 mg Depo-Medrol was injected in divided doses between those 4 levels. The needles were then removed intact. The patient experienced no signs or symptoms of intrathecal, intravascular injection. The patient experienced no paraesthesia. The procedure was completed without any apparent difficulty, any complication. The patient appeared to tolerate well. Sensory as well as motor exam was unchanged from prior to procedure. ASSESSMENT AND PLAN: This is a 68-year-old Female with lumbosacral spondylosis, lumbosacral degenerative disc disease, lumbar facet arthropathy, status post left-sided radiofrequency ablation of the medial branch L3 through S1. The patient will continue her current medications. The patient will follow up in approximately 2 weeks for reevaluation.
[2018-09-04 11:58] VITALS: BP 111/64
== END 2018-09-04 11:59 | disposition home or self-care (01) ==
LOC: SDC 08:36 → AC 08:50
PROVIDERS: Family Provider Preventive Medicine Occupational Medicine; PCP Preventive Medicine Occupational Medicine; Referring Provider Anesthesiology Pain Medicine; Visit Provider Anesthesiology Pain Medicine
PROC: (CPT 64635; principal; 2018-09-04 10:15)
DX: M51.37 Other intervertebral disc degeneration, lumbosacral region (principal); M47.817 Spondylosis without myelopathy or radiculopathy, lumbosacral region; E11.9 Type 2 diabetes mellitus without complications; Z79.899 Other long term (current) drug therapy; Z79.84 Long term (current) use of oral hypoglycemic drugs; I10 Essential (primary) hypertension; E78.5 Hyperlipidemia, unspecified; M19.90 Unspecified osteoarthritis, unspecified site; F31.9 Bipolar disorder, unspecified; F41.9 Anxiety disorder, unspecified; F17.210 Nicotine dependence, cigarettes, uncomplicated; Z79.891 Long term (current) use of opiate analgesic
CPT/HCPCS: 64635; 64636 ×3; 72110; 76000; 82962; J7120

== ENCOUNTER 2018-09-12 12:00 | Outpatient (RCR) | payer MEDICAID, SELFPAY ==
--- NOTE | 2018-06-26 13:06 | HP.PTEVAL ---
Patient's Visit Information SILVIA ROSADO is a 68 year old F referred to Physical Therapy by Broderick Mi DO with a diagnosis of DDD L/S. Date of Evaluation: 06/26/18 Physical Therapist: Brandyn Lopez DPT, OCS, CSCS - Visit Plan Frequency: 2x /Week Duration: 4-6 Weeks Plan: 2x/week for 4-6 for instruct in HEP of... 1. LB ROM flexion bias adn progress HEP. 2. HS and quad strech and teach HEP. 3. NS core strength and progress HEP. 4. General sink ex for HEP - Subjective Findings: Has chronic LBP. Been there years. Pain is normal pain. It is in R LB 6/10 intermittently and better sitting adn worse with walking. Standing long time. Then says it is constant adn will get shot next week. They help for about one month. Sleep is OK but needs pain meds before bed and seraquil. Not working as she is on SSI due to psychiatric. Spends day in pain. Worse in morning. Washes dishes, cooks for herself and her son one time per day. Does light housework. Watches TV. No regular ex. Son does grocery shopping. - Pain LBP Pain Intensity (Out of 10): 4 Pain Intensity Range: 4, 8 - Objective Walks with cane R UE mod I, trasnfers I. More pain as she walks. Hunches over forward. Flat L/S lordosis and kypbotic T/S. LS AROM ext max limited and pain, flexion mod limited adn pain, B SB max limited. HS and quads and ITB Max tight adn SLR only to 30 degrees. reflexes 1/3 patella and achilles. sensation LE WNL to gross light touch. Strength LE 3+ ankles, 4- knee flexion R and L, hip flexion R 4- adn L 3+ with pain, abd 4- with pain in LB. Very difficult time with pelvic tilt. - Goals Goal 1:: Pain 50% better to 3/10 at worst Goal Time Frame: 4-6 Weeks Goal 2:: I approp HEP to minimize future problems Goal Time Frame: 4-6 Weeks Goal 3:: Sleep without waking due to pain. Goal Time Frame: 4-6 Weeks - Rehabilitation Potential Physical Therapy Diagnosis: Degenerative changes in Low back poorly managed. Rehabilitation Potential: Questionable - Anticipated Interventions Patient/Client Instruction: Educate patient on: Condition, Plan of Care For the Purpose of:: To decrease pain, To improve muscle performance and motor function, To increase tolerance to activity/condition/position Therapeutic Exercise to Include: Strength training, Flexibilty training, Gait and locomotor training, Passive ROM, Active ROM, Scapular Strength/Stabilization For the Purpose of:: To decrease pain, To improve muscle performance and motor function, To improve ability of physical actions for home/community/work/leisure, To foster healthy habits Thank you for the opportunity to evaluate your patient. For Medicare and Medicare HMO plans, please review the plan of care and approve it. It will need to be FAXED BACK to us at [phone] for Medicare purposes. For Medicare only, by signing this I certify the plan of care. Please let me know if there are questions or concerns regarding this plan of care. Physician Signature: Date:
--- NOTE | 2018-08-03 14:25 | HP.PTREVAL ---
Yarelis Mehta, LEONOR-C, It has been my pleasure to treat SILVIA ROSADO over the last 6 visits for DDD L/S. Please see the progress note below for an update on the physical therapy plan of care! Subjective: Getting better. Getting stronger. A little better with energy level. Doing exercises at home. Pain is 4/10 in knee. Sometimes 4/10 in LB. Wants to continue PT for compliance. 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 Needs more energy for shopping as she avoids it as it wears her out. To doctor August 15. Objective/Function: Fair balance but hesitant and scared with forward weight shift. I with walking but scared. Using cane takes much bigger steps and shifts weight better. Steps prefers L due to R wekaness and needs one rail adn cane. SLOW BUT DEFINITIVE PROGRESS, PAIN NOT A HUGE ISSUE BUT FATIGUES QUICKLY IS SOB AFTER 100 FEET TODAY. MAYBE MORE SCARED THAN SOB. Plan Plan: 2X/WEEK FOR 2 WEEKS, PLEASE FOCUS ON. 1. GETTING I WITH BAND EX AT HOME WITH PICS. 2. WALKING WITHOUT AD USING FW WEIGHT SHIFT AND LARGE STEPS AND CLIMBING STEPS/WB LE STRENGTH. Goals Goal 1:: Pain 50% better to 3/10 at worst Goal Time Frame: 4-6 Weeks Goal Progress: Progressing Goal 2:: I approp HEP to minimize future problems Goal Time Frame: 4-6 Weeks Goal Progress: NEEDS UE Goal 3:: Sleep without waking due to pain. Goal Time Frame: 4-6 Weeks Goal Progress: good with meds. Goal 4:: FLIGHT STEPS AND ONE LAP WITHOUT AD SAFELY AND WITHOUT SOB Goal Time Frame: 2-4 Weeks Goal Progress: NEW GOAL Anticipated Interventions Patient/Client Instruction: Educate patient on: Condition, Plan of Care For the Purpose of:: To decrease pain, To improve muscle performance and motor function, To increase tolerance to activity/condition/position Therapeutic Exercise to Include: Strength training, Flexibilty training, Gait and locomotor training, Passive ROM, Active ROM, Scapular Strength/Stabilization For the Purpose of:: To decrease pain, To improve muscle performance and motor function, To improve ability of physical actions for home/community/work/leisure, To foster healthy habits Please do not hesitate to contact me at [phone] by phone or if you have questions or concerns regarding this new plan of care! Sincerely, Brandyn Lopez, DPT, OCS, CSCS
--- NOTE | 2018-09-12 12:44 | HP.PTREVAL_ITS ---
Yarelis Mehta, AIRWAYS OPERATIONS SPECIALIST-C, It has been my pleasure to treat SILVIA ROSADO over the last 10 visits for DDD L/S. Please see the progress note below for an update on the physical therapy plan of care! Subjective: Doing exercises every other day at home. Son says she is doing better. She feel slike activitiy is better and pain is less. Back hasn't bothered her lately since she got a shot, sometimes up to 3/10 in R Lower leg. Back to doctor from injection next Tuesday. feels like she can do new exercises at home with what she did today. Objective/Function: Some mild trasnient LBP after one lap ambulation and says she is tired but more anxious and no SOB. Plan Plan: f/u for D/C in 2-3 weeks if doing well with new HEP. Goals Goal 1:: Pain 50% better to 3/10 at worst Goal Time Frame: 4-6 Weeks Goal Progress: Goal Met Goal 2:: I approp HEP to minimize future problems Goal Time Frame: 4-6 Weeks Goal Progress: Goal Met Goal 3:: Sleep without waking due to pain. Goal Time Frame: 4-6 Weeks Goal Progress: Goal Met Goal 4:: FLIGHT STEPS AND ONE LAP WITHOUT AD SAFELY AND WITHOUT SOB Goal Time Frame: 2-4 Weeks Goal Progress: Goal Met Goal 5:: Conmsistency with goals with HEP for 2 weeks Goal Time Frame: 2-4 Weeks Anticipated Interventions Patient/Client Instruction: Educate patient on: Condition, Plan of Care For the Purpose of:: To decrease pain, To improve muscle performance and motor function, To increase tolerance to activity/condition/position Therapeutic Exercise to Include: Strength training, Flexibilty training, Gait and locomotor training, Passive ROM, Active ROM, Scapular Strength/Stabilization For the Purpose of:: To decrease pain, To improve muscle performance and motor function, To improve ability of physical actions for home/community/work/leisure, To foster healthy habits Please do not hesitate to contact me at [phone] by phone or if you have questions or concerns regarding this new plan of care! Sincerely, Brandyn Lopez, DPT, OCS, CSCS
--- NOTE | 2018-11-21 18:26 | HP.PT.NRP ---
HP - Discharge Summary (1) - Patient Information SILVIA ROSADO was seen in my office for initial evaluation on 06/26/18. The following Plan of Care was established for this patient: Initial Frequency: 2x /Week Initial Duration: 4-6 Weeks - Anticipated Interventions Patient/Client Instruction: Educate patient on: Condition, Plan of Care For the Purpose of:: To decrease pain, To improve muscle performance and motor function, To increase tolerance to activity/condition/position Therapeutic Exercise to Include: Strength training, Flexibilty training, Gait and locomotor training, Passive ROM, Active ROM, Scapular Strength/Stabilization For the Purpose of:: To decrease pain, To improve muscle performance and motor function, To improve ability of physical actions for home/community/work/leisure, To foster healthy habits This patient was last seen in our office 09/12/18. Pertinent comments regarding their Physical therapy will appear below: Pt seen 10 visits stating 75% better. Was to f/u 3 weeks after last recheck but did not schedule or attend. I will discontinue at this time due to nonattendance. At this point I will be discontinuing this patient from physical therapy. I would be happy to see this patient again in the future if found appropriate by the physician. Thank you! Brandyn Lopez, DPT, OCS, CSCS
== END 2018-09-12 19:00 | disposition home or self-care (01) ==
LOC: PT 12:00
PROVIDERS: Family Provider Preventive Medicine Occupational Medicine; PCP Preventive Medicine Occupational Medicine; Referring Provider Nurse Practitioner Family; Visit Provider Nurse Practitioner Family
DX: M48.061 Spinal stenosis, lumbar region without neurogenic claudication (principal); M51.36 Other intervertebral disc degeneration, lumbar region; M46.96 Unspecified inflammatory spondylopathy, lumbar region; M54.16 Radiculopathy, lumbar region; M79.10 Myalgia, unspecified site
CPT/HCPCS: 97110; 97116; 97162; 97530

== ENCOUNTER 2018-10-04 12:48 | Emergency (ER) | payer MEDICAID, SELFPAY ==
[2018-10-04 12:50] VITALS: BP 136/76; PULSE 66; RESP 16; TEMP 36.4; BMI 37.8
--- NOTE | 2018-10-04 13:15 | ED.DCSUM_ITS ---
History of Present Illness Chief Complaint: Wound Check Informant: Patient Onset: Weeks Current Severity: Mild Narrative: Right great toe status post removal of toenail by her publication designer a few weeks ago she indicates she has been soaking it in Epsom salt doing all the wound care instructions indicates the dressing keeps sticking to the nailbed matrix and she is concerned she has an infection involving that area no drainage no other complaints to the area she is scheduled to follow-up with her publication designer's Past Medical History - Allergies and Home Meds Allergies/Adverse Reactions: Allergies hydrocodone Adverse Reaction (Verified 10/04/18 12:52) Other oxycodone HCl [From Percocet] Adverse Reaction (Verified 10/04/18 12:52) Other Primary Care Physician: Broderick Mi DO [Primary Care Provider] - Past Medical History: - Smoking Status: Current every day smoker Review of Systems ROS: - As above General: Denies: Chills, Fever, Sweats Eyes: Denies: Visual changes - bilaterally, Diplopia ENT: Denies: Rhinorrhea, Sore throat Cardiovascular: Denies: Chest pain, Palpitations Respiratory: Denies: Dyspnea, Cough, Dyspnea on exertion Gastrointestinal: Denies: Abdominal pain, Nausea, Vomiting, Diarrhea, Melena, Hematochezia Genitourinary: Denies: Dysuria, Hematuria, Frequency Musculoskeletal: Denies: Back pain, Extremity Pain Skin: Denies: Rash, Wounds Neurological: Denies: Headache, Weakness, Numbness Physical Exam Vital Signs/Narrative: Vital Signs Temp Pulse Resp BP 10/04/18 12:50 97.6 F L 66 16 136/76 H General: Well nourished, Well developed, No Acute Distress Head: Normocephalic, Atraumatic Eyes: Perrl, EOMI ENT: Moist mucous membranes, No rhinorrhea Neck: Supple, Nontender Cardiovascular: Regular rate, Regular rhythm, No murmurs Respiratory: No distress, CTA bilaterally, Chest nontender Abdomen: Soft, Nontender, Nondistended, Normal bowel sounds Back: Nontender, Normal Inspection Extremities: Nontender, No edema, - - The toenail area is unremarkable the nails been removed there is granulation tissue around where the nail was there is no signs of active infection drainage at this time will apply a nonstick dressing and provide her that type of material to use at home to follow-up with her publication designer in the next day or 2 Skin: Normal color, No rash Neurological: Alert, Oriented x3, Cranial nerves II-XII grossly intact, Normal Strength, Normal Sensation Psychological: Normal affect, Normal Mood Diagnostic/Tx/Re-eval - Medical Decision Making As above we will provide her wound care and supplies so she does not have thing sticking to the toenail was asked to follow-up with a publication designer I explained her I do not believe she requires antibiotics in the complication antibiotics she understands Home stable Final impression Status post great toenail right removed ED Disposition - Plan for ED Patient: Diagnosis: Visit for wound check Instructions: POST OP WOUND CHECK, Pain Referrals: Broderick Mi DO [Primary Care Provider] - Additional Instructions: Please use the nonadherent dressing we provided you and see your publication designer in a few days
== END 2018-10-04 15:04 | disposition home or self-care (01) ==
LOC: ED 13:19
PROVIDERS: Emergency Provider Emergency Medicine; Family Provider Preventive Medicine Occupational Medicine; PCP Preventive Medicine Occupational Medicine
DX: Z48.00 Encounter for change or removal of nonsurgical wound dressing (principal); F17.200 Nicotine dependence, unspecified, uncomplicated
CPT/HCPCS: 99283

== ENCOUNTER 2018-11-06 08:16 | Day surgery (SDC) | payer MEDICAID, SELFPAY ==
[2018-11-06 09:53] VITALS: BP 100/54; PULSE 57; RESP 16; TEMP 36.4; O2SAT 98; BMI 40.0
[2018-11-06 10:15] LABS: Bedside Glucose 132 mg/dL (70-110)
[2018-11-06] MEDS: MethylPREDNISolone Acetate 80 MG/ML Vial (10:29)
[2018-11-06] MEDS: Bupivacaine 0.25% 30 ML Vial (10:29)
--- NOTE | 2018-11-06 10:30 | RAD_ITS ---
PROCEDURE: Caudal block. DATE OF EXAMINATION: November 06, 2018. INDICATION: Female, 68 years old. Chronic low back pain. FLUOROSCOPY TIME (if supplied): (0:07) minutes/seconds. 2 coned down intraoperative views were obtained. Intraoperative imaging provided for caudal block. The spinal needle is seen along the posterior midportion of the sacrum. RAD/Fluor Guidance for Spine Inj IMPRESSION: Intraoperative imaging provided for caudal block. Electronically Signed: Dwight Cleary, at 15:54 EDT , Service support ,
[2018-11-06 10:38] VITALS: BP 100/54; BP 116/71; PULSE 64; RESP 16; TEMP 36.5; O2SAT 97
[2018-11-06 10:40] VITALS: BP 100/54; BP 119/72; PULSE 65; RESP 16; O2SAT 98
[2018-11-06 10:45] VITALS: BP 100/54; BP 111/74; PULSE 68; RESP 16; O2SAT 97
[2018-11-06 11:02] VITALS: BP 100/54; BP 118/73; PULSE 67; RESP 16; TEMP 36.4; O2SAT 97
[2018-11-06 11:16] VITALS: BP 100/54
--- NOTE | 2018-11-06 17:41 | OP.PCM_ITS ---
Problem List (1) Degeneration of intervertebral disc of lumbosacral region Status: Chronic (2) Sacrococcygeal disorders, not elsewhere classified Status: Chronic Report of Operation Date of Procedure: 11/06/18 Pre-Operative Diagnosis: Lumbosacral colopathy, lumbosacral degenerative disc disease, lumbosacral spinal stenosis Post-Operative Diagnosis: Lumbosacral radiculopathy, lumbosacral degenerative disc disease, lumbar sacral spinal stenosis Surgery/Procedure Performed:: Caudal epidural steroid injection Description of Surgical Findings:: PROCEDURE: Diagnostic/therapeutic caudal epidural steroid injection PREOPERATIVE DIAGNOSIS: Lumbosacral radiculopathy, lumbosacral degenerative disc disease, lumbosacral spinal stenosis POSTOPERATIVE DIAGNOSIS: Lumbosacral radiculopathy, lumbosacral degenerative disc disease, lumbosacral spinal stenosis ANESTHESIA: MAC COMPLICATIONS: None BLOOD LOSS: Minimal PROCEDURE IN DETAIL: History and physical today was reviewed. Risks and benefits of the procedure were explained. The patient understood, agreed to our procedure, and informed consent was obtained. IV inserted per routine protocol. The patient was taken to the operating room, placed in a prone position with a pillow positioned underneath the abdomen. The lower back area was prepped and draped in a sterile fashion using iodine x3 under fluoroscopy guidance on the lateral view the caudal space was identified the skin and subcutaneous tissue and size approximately 3 cc of 1% lidocaine using a 25-gauge regular needle under direct visualization fluoroscopy using a 22-gauge 3-1/2 inch spinal needle the needle was advanced via the skin through the sacral hiatus tip of the needle passed through the sacrococcygeal ligament advanced approximately S4 area after negative aspiration for blood or CSF a total of 3 cc of contrast were injected to confirm correct placement of the needle as well as cephalad spread the spread was followed to approximately L5 area after negative aspiration for blood or CSF and confirmation AP as well as lateral view a total of 15 cc of preservative-free 0.125% Marcaine with 80 mg of Depo-Medrol were injected easily. The needles were then removed intact. The patient experienced no signs or symptoms intrathecal, intravascular injection. The patient experienced no paraesthesia. The procedure was completed without any apparent difficult, any complication. The patient appeared to tolerate well. ASSESSMENT AND PLAN: This is a 68-year-old female with lumbosacral radiculopathy, lumbosacral degen erative disc disease, lumbosacral spinal stenosis status post diagnostic/therapeutic caudal epidural steroid injection. The patient will continue her current medications. The patient will follow in approximately 2 weeks for possible reevaluation.
== END 2018-11-06 11:35 | disposition home or self-care (01) ==
LOC: SDC 08:17 → AC 09:25
PROVIDERS: Family Provider Preventive Medicine Occupational Medicine; PCP Preventive Medicine Occupational Medicine; Referring Provider Anesthesiology Pain Medicine; Visit Provider Anesthesiology Pain Medicine
PROC: 3E0S3BZ Introduction of Anesthetic Agent into Epidural Space, Percutaneous Approach (ICD-10-PCS; CPT 62282; principal; 2018-11-06 10:25)
DX: M47.27 Other spondylosis with radiculopathy, lumbosacral region (principal); M51.17 Intervertebral disc disorders with radiculopathy, lumbosacral region; M48.07 Spinal stenosis, lumbosacral region; M48.061 Spinal stenosis, lumbar region without neurogenic claudication; M51.16 Intervertebral disc disorders with radiculopathy, lumbar region; M46.96 Unspecified inflammatory spondylopathy, lumbar region; M53.3 Sacrococcygeal disorders, not elsewhere classified; E11.9 Type 2 diabetes mellitus without complications; F32.9 Major depressive disorder, single episode, unspecified; G43.909 Migraine, unspecified, not intractable, without status migrainosus; I10 Essential (primary) hypertension; F20.9 Schizophrenia, unspecified; M19.90 Unspecified osteoarthritis, unspecified site; F31.9 Bipolar disorder, unspecified; F41.9 Anxiety disorder, unspecified; K59.09 Other constipation; Z87.19 Personal history of other diseases of the digestive system; Z78.0 Asymptomatic menopausal state; Z79.84 Long term (current) use of oral hypoglycemic drugs; Z79.891 Long term (current) use of opiate analgesic; Z79.899 Other long term (current) drug therapy; F17.210 Nicotine dependence, cigarettes, uncomplicated
CPT/HCPCS: 62323; 64483; 77003; 82962; J7120; J3490

== ENCOUNTER 2019-01-25 12:30 | Outpatient (RCR) | payer MEDICAID, SELFPAY ==
--- NOTE | 2018-12-11 12:59 | HP.PTEVAL_ITS ---
Patient's Visit Information SILVIA ROSADO is a 68 year old F referred to Physical Therapy by FAISAL Robertson with a diagnosis of DEGENERATIVE LUMBAR SPINAL STENOSIS,DEGENERATIVE OF INTERVERTEBRAL DISC. Date of Evaluation: 12/11/18 Physical Therapist: Barrera Maher, PT, Cert MDT, OCS - Visit Plan Frequency: 2x /Week Duration: 4 Weeks Plan: PT INTERVENTIONS DLS ABD/BACK,POSTURAL EX'S,LE STRENGTHENING,MODALITIES - Subjective Findings: This 68 y/o female presents to physical therapy with lumbar pain. Pateint has lumbar pain for many years. Patient pain located symmtrical lumbar. Aggraveting factors walking,standing,lifting,bending affects daily activities. Alleviating factors resting,sitting. Denies parathesai/tingling. Bowel/bladder - . Coughing/sneezing-. Patient has had [facility] in past. Patient sleeping okay at night with sleeping aide. Patient had seen pain management and received injections in past. Patient uses cane for community distance with LBP and KNEE pain. Patient symptoms affetcs ADL'S and housework tasks. Pateint condition affects QOL. SOCIAL: single. VOCATION: disablity - Pain Bilateral Back Pain Intensity (Out of 10): 5 Pain Intensity Range: 10 - Objective POSTURE: mild foward posture mild hip/veronica flexed. GAIT: ambulates wth mild foward posture , 2 point gait mild anatalgic gait. NEURO; denies parathesia/tingling,reflexes L3-4,L4-5,L5-S1 2/3. SYMMTRIES: alighn. PALAPTION: SI /LS. MMT: quads/hams 4-/5,hip flexion 3+/5,ankle 4/5. LUMBAR ROM:flexion mod loss,extension severe loss,side glides mod loss - Special Tests L/S Slump test left side: Negative L/S Slump test right side: Negative L/S Left Straight Leg Raise: Negative L/S Right Straight Leg Raise: Negative Lumbar Standing: Flexion - Mechanical Response: No effect Lumbar Standing: Flexion - Symptoms During Testing: Increases Lumbar Standing: Flexion - Symptoms After Testing: No worse Lumbar Standing: Extension - Mechanical Response: No effect Lumbar Standing: Extension - Symptoms During Testing: Increases Lumbar Standing: Extension - Symptoms After Testing: No worse - Goals Goal 1:: Independant with HEP. Goal Time Frame: 4-6 Weeks Goal 2:: Patient inmprove posture for ADL's Goal Time Frame: 4-6 Weeks Goal 3:: Patient decerase pain lumbar by 40% or > to imrove function. Goal Time Frame: 4-6 Weeks Goal 4:: Patient improve back owsestry by 5 points or > to improve QOL. Goal 5:: Pateint improve lumbar ROM for function of recovery. Goal Time Frame: 4-6 Weeks - Rehabilitation Potential Physical Therapy Diagnosis: This patient has symmtrical lumbar pain with pain,decrease ROM,strength ,gait which impairs ADL'S and function thus benfit from Skilled PT. Rehabilitation Potential: Good - Anticipated Interventions Patient/Client Instruction: Educate patient on: Condition, Plan of Care For the Purpose of:: To decrease pain, To increase ROM, To improve muscle performance and motor function, To improve ability to perform ADL's, To increase tolerance to activity/condition/position, To improve performance and independence with ADL's, To improve ability of physical actions for home/community/work/leisure, To improve health of tissue, To decrease soft tissue restriction, To increase flexibility/ROM, To reduce risk of recurrence, To improve ability to perform tasks related to life management Therapeutic Exercise to Include: Strength training, Postural training, Flexibilty training, Dynamic Lumbar Stabilization For the Purpose of:: To decrease pain, To increase ROM, To improve muscle performance and motor function, To improve ability to perform ADL's, To increase tolerance to activity/condition/position, To improve ability of physical actions for home/community/work/leisure, To improve health of tissue, To decrease soft tissue restriction, To increase flexibility/ROM, To improve ability to perform tasks related to life management TENS: Yes IF ES: Yes Cryotherapy (ice pack, ice massage): Yes Thermo therapy (hot pack): Yes Ultrasound (thermal/non thermal): Yes For the Purpose of:: To decrease pain, To increase ROM, To improve nutrient delivery to tissue, To increase oxygenation perfusion, To improve health of tissue, To decrease soft tissue restriction Thank you for the opportunity to evaluate your patient. For Medicare and Medicare HMO plans, please review the plan of care and approve it. It will need to be FAXED BACK to us at [phone] for Medicare purposes. For Medicare only, by signing this I certify the plan of care. Please let me know if there are questions or concerns regarding this plan of care. Physician Signature: Date:_
--- NOTE | 2019-03-22 09:24 | HP.PT.NRP ---
HP - Discharge Summary (1) - Patient Information SILVIA ROSADO was seen in my office for initial evaluation on 12/11/18. The following Plan of Care was established for this patient: Initial Frequency: 2x /Week Initial Duration: 4 Weeks - Anticipated Interventions Patient/Client Instruction: Educate patient on: Condition, Plan of Care For the Purpose of:: To decrease pain, To increase ROM, To improve muscle performance and motor function, To improve ability to perform ADL's, To increase tolerance to activity/condition/position, To improve performance and independence with ADL's, To improve ability of physical actions for home/community/work/leisure, To improve health of tissue, To decrease soft tissue restriction, To increase flexibility/ROM, To reduce risk of recurrence, To improve ability to perform tasks related to life management Therapeutic Exercise to Include: Strength training, Postural training, Flexibilty training, Dynamic Lumbar Stabilization For the Purpose of:: To decrease pain, To increase ROM, To improve muscle performance and motor function, To improve ability to perform ADL's, To increase tolerance to activity/condition/position, To improve ability of physical actions for home/community/work/leisure, To improve health of tissue, To decrease soft tissue restriction, To increase flexibility/ROM, To improve ability to perform tasks related to life management TENS: Yes IF ES: Yes Cryotherapy (ice pack, ice massage): Yes Thermo therapy (hot pack): Yes Ultrasound (thermal/non thermal): Yes For the Purpose of:: To decrease pain, To increase ROM, To improve nutrient delivery to tissue, To increase oxygenation perfusion, To improve health of tissue, To decrease soft tissue restriction This patient was last seen in our office . Pertinent comments regarding their Physical therapy will appear below: This patient recieved PT for Lumbar pain with treatment focusing on DLS abd/back,postural ex's with 7 visits . Patient thus is d/c. At this point I will be discontinuing this patient from physical therapy. I would be happy to see this patient again in the future if found appropriate by the physician. Thank you! Barrera Maher, PT, Cert MDT, OCS
== END 2019-01-25 19:00 | disposition home or self-care (01) ==
LOC: PT 12:30
PROVIDERS: Family Provider Preventive Medicine Occupational Medicine; PCP Preventive Medicine Occupational Medicine; Referring Provider Nurse Practitioner Family; Visit Provider Nurse Practitioner Family
DX: M48.061 Spinal stenosis, lumbar region without neurogenic claudication (principal); M51.36 Other intervertebral disc degeneration, lumbar region; M54.16 Radiculopathy, lumbar region; M79.10 Myalgia, unspecified site
CPT/HCPCS: 97110; 97162

== ENCOUNTER 2019-02-19 06:51 | Day surgery (SDC) | payer MEDICAID, SELFPAY ==
[2019-02-19] VITALS (7 sets, daily range): BP systolic 91–106; BP diastolic 53–66; PULSE 56–62; RESP 16; TEMP 36.3–36.7; O2SAT 94–97; BMI 42.8
[2019-02-19] MEDS: Lactated Ringers 1,000 ML 100 ML IV ×3 (07:40→08:00)
[2019-02-19 07:55] LABS: Bedside Glucose 89 mg/dL (70-110)
--- NOTE | 2019-02-19 08:30 | RAD_ITS ---
STUDY: RIGHT L3-S1 RADIOFREQUENCY ABLATION. REASON FOR EXAM: Female, 68 years old. Chronic low back pain. FLUOROSCOPY TIME (if supplied): ( 20 seconds ) minutes/seconds. 9 intraoperative views were obtained. TECHNIQUE: Under direct fluoroscopic guidance, radiofrequency ablations of the right L3-S1 levels were obtained. COMPARISON: None. FINDINGS: [place] are seen at the L3-S1 levels on the right side. RAD/L/S Spine Min 4 Views IMPRESSION: Intraoperative fluoroscopic services provided for right L3-S1 radiofrequency ablation. Electronically Signed: Dwight Cleary, at 13:23 EST , Service support ,
[2019-02-19] MEDS: Bupivacaine 0.25% 30 ML Vial (08:36)
[2019-02-19] MEDS: MethylPREDNISolone Acetate 80 MG/ML Vial (08:38)
--- NOTE | 2019-02-19 09:19 | PCM.OPRPT ---
Report of Operation Date of Procedure: 02/19/19 Description of Surgical Findings:: PROCEDURE: Right-sided radiofrequency ablation of the medial branch L3, L4, L5, S1 PREOPERATIVE DIAGNOSES: Lumbosacral spondylosis, lumbosacral degenerative disc disease, lumbar facet arthropathy POSTOPERATIVE DIAGNOSES: Lumbosacral spondylosis, lumbosacral degenerative disc disease, lumbar facet arthropathy ANESTHESIA: MAC COMPLICATIONS: None BLOOD LOSS: Minimal PROCEDURE IN DETAIL: History and physical today was reviewed. Risks and benefits of procedure explained. The patient understood, agreed to the procedure and informed consent was obtained. IV inserted per routine protocol. The patient was taken to the operating room, placed in the prone position with a pillow positioned underneath the abdomen. The right side of the lower back was prepped and draped in a sterile fashion using iodine x 3. Under fluoroscopy guidance, on an oblique view, the L3 through S1 vertebral bodies were visualized. The skin and subcutaneous tissue was anesthetized with approximately 10 mL of 1% lidocaine using a 25-gauge regular needle. Under direct visualization with fluoroscopy at approximately 25-degree angle, starting on the right L3, ending on the right S1 passing through the L4-L5 using a 20-gauge 15 cm with a 10 mm curved active tip radiofrequency ablation needle the needle passed through the skin. The tip of the needle was maneuvered and directed towards the superior and medial gutter of the transverse process at the vicinity of the medial branch. Once the tip of the needle was in contact with the bone, the needle pulled approximately 2 mm up the bone. The stylet of each needle was then removed. After negative aspiration of blood with CSF and confirmation of AP as well as oblique view, radiofrequency ablation probe was then inserted at each level. Impedance was then recorded at L3 to be 205, at L4 290, at L5 296, at S1 317 ohm. Motor-evoked potential was then initiated to 1.5 volt without any motor response at each corresponding level. The probe was then removed intact and a total of 6 mL preservative-free 1% lidocaine was injected in divided doses between those 4 levels after negative aspiration of blood with CSF. The radiofrequency ablation probe was then reinserted after confirmation of AP, oblique as well as lateral view. Radiofrequency ablation was then initiated to 80 degrees Celsius for 90 seconds at each level. Once concluded, the probe was then removed intact and a total of 6 mL of preservative-free 0.25% Marcaine with 40 mg Depo-Medrol was injected in divided doses between those 4 levels. The needles were then removed intact. The patient experienced no signs or symptoms of intrathecal, intravascular injection. The patient experienced no paraesthesia. The procedure was completed without any apparent difficulty, any complication. The patient appeared to tolerate well. Sensory as well as motor exam was unchanged from prior to procedure. ASSESSMENT AND PLAN: This is a 68-year-old Female with lumbosacral spondylosis, lumbosacral degenerative disc disease, lumbar facet arthropathy, status post right-sided radiofrequency ablation of the medial branch L3 through S1. The patient will continue her current medications. The patient will follow up in approximately 2 weeks for reevaluation.
== END 2019-02-19 10:13 | disposition home or self-care (01) ==
LOC: SDC 06:52 → AC 07:17
PROVIDERS: Family Provider Preventive Medicine Occupational Medicine; PCP Preventive Medicine Occupational Medicine; Referring Provider Anesthesiology Pain Medicine; Visit Provider Anesthesiology Pain Medicine
PROC: (CPT 64635; principal; 2019-02-19 08:25)
DX: M47.817 Spondylosis without myelopathy or radiculopathy, lumbosacral region (principal); M51.37 Other intervertebral disc degeneration, lumbosacral region; M46.96 Unspecified inflammatory spondylopathy, lumbar region; M51.36 Other intervertebral disc degeneration, lumbar region; M48.061 Spinal stenosis, lumbar region without neurogenic claudication; M54.16 Radiculopathy, lumbar region; E11.9 Type 2 diabetes mellitus without complications; F32.9 Major depressive disorder, single episode, unspecified; G43.909 Migraine, unspecified, not intractable, without status migrainosus; I10 Essential (primary) hypertension; F20.9 Schizophrenia, unspecified; M19.90 Unspecified osteoarthritis, unspecified site; F31.9 Bipolar disorder, unspecified; F41.9 Anxiety disorder, unspecified; Z78.0 Asymptomatic menopausal state; Z87.19 Personal history of other diseases of the digestive system; Z79.84 Long term (current) use of oral hypoglycemic drugs; Z79.891 Long term (current) use of opiate analgesic; Z79.899 Other long term (current) drug therapy; F17.210 Nicotine dependence, cigarettes, uncomplicated
CPT/HCPCS: 01992; 64635; 64636 ×2; 72110; 76000; 82962; J7120

== ENCOUNTER 2019-03-19 08:19 | Day surgery (SDC) | payer MEDICAID, SELFPAY ==
[2019-02-19 07:33] VITALS: BMI 42.8
[2019-03-19 09:26] LABS: Bedside Glucose 94 mg/dL (70-110)
[2019-03-19 09:27] VITALS: BP 115/62; PULSE 57; RESP 15; TEMP 36.6; O2SAT 97; BMI 42.0
[2019-03-19] MEDS: Lactated Ringers 1,000 ML 100 ML IV (09:36)
--- NOTE | 2019-03-19 10:30 | RAD_ITS ---
PROCEDURE: Caudal block. DATE OF EXAMINATION: March 19, 2019. INDICATION: Female, 69 years old. Chronic low back pain. FLUOROSCOPY TIME (if supplied): (13 seconds) minutes/seconds. Single lateral view was obtained. Intraoperative imaging provided for caudal block. RAD/Fluor Guidance for Spine Inj IMPRESSION: Intraoperative imaging provided for caudal block. Electronically Signed: Dwight Cleary, at 13:21 EST , Service support ,
[2019-03-19] MEDS: 0.9% Normal Saline (Pres. free 10 ML Vial (10:56)
[2019-03-19] MEDS: Bupivacaine 0.25% 30 ML Vial (10:56)
[2019-03-19] MEDS: MethylPREDNISolone Acetate 80 MG/ML Vial (10:56)
[2019-03-19 11:04] VITALS: BP 114/73; BP 115/62; PULSE 62; RESP 16; TEMP 36.3; O2SAT 95
[2019-03-19 11:10] VITALS: BP 115/62; BP 123/70; PULSE 61; RESP 16; O2SAT 95
[2019-03-19 11:15] VITALS: BP 115/62; BP 125/76; PULSE 62; RESP 16; O2SAT 94
[2019-03-19 11:21] VITALS: BP 115/62; BP 119/69; PULSE 64; RESP 16; TEMP 36.5; O2SAT 94
[2019-03-19 11:35] VITALS: BP 115/62
--- NOTE | 2019-03-19 12:39 | PCM.OPRPT ---
Report of Operation Date of Procedure: 03/19/19 Description of Surgical Findings:: PREOPERATIVE DIAGNOSIS: Lumbosacral radiculopathy, lumbosacral degenerative disc disease, lumbosacral spinal stenosis POSTOPERATIVE DIAGNOSIS: Lumbosacral radiculopathy, lumbosacral degenerative disc disease, lumbosacral spinal stenosis PROCEDURE PERFORMED: Caudal epidural steroid injection. ANESTHESIA: MAC. BLOOD LOSS: Minimal. COMPLICATIONS: None. DESCRIPTION OF PROCEDURE: History and physical of today was reviewed. Risks and benefits of the procedure were explained. The patient understood and agreed to proceed. Informed consent was obtained. IV inserted per routine protocol. The patient was taken to the operating room and placed in the prone position with a pillow positioned underneath the abdomen. The lower back and tailbone area was prepped and draped in a sterile fashion using iodine x3. Under fluoroscopy guidance on a lateral view, the caudal space was identified. The skin and subcutaneous tissue was anesthetized with approximately 3 mL of 1% lidocaine using a 25-gauge regular needle. Under direct visualization with fluoroscopy, using a 22-gauge 3-1/2-inch spinal needle, the needle was advanced via the skin through the sacral hiatus. The tip of the needle was passed through the sacrococcygeal ligament and advanced to approximately S4 area. After negative aspiration of blood or CSF, a total of 3 mL of contrast was injected to confirm correct placement of the needle as well as cephalad spread. The spread was followed to approximately L5 area. After confirmation on AP as well as lateral view and repeated negative aspiration, a total of 15 mL of preservative-free 0.125% Marcaine with 80 mg of Depo-Medrol was injected easily. The needle was then removed intact. The patient experienced no sign or symptoms of intrathecal or intravascular injection. The patient experienced no paresthesia. The procedure was completed without any apparent difficulty or any complications. The patient appeared to tolerate it well. ASSESSMENT AND PLAN: This is a 69-year-old female with lumbosacral radiculopathy, lumbosacral degenerative disc disease, lumbosacral spinal stenosis status post caudal epidural steroid injection patient will continue her current medications patient will follow approximately 2 weeks for reevaluation.
[2019-03-19 13:17] LABS: Microalbumin,Random Urine 7.7 mg/L (NO RANGE EST.)
[2019-03-19 13:24] LABS: ALB/GLOB Ratio 0.9 RATIO (0.9-2.4); AST(SGOT) 9 U/L (15-37); Alanine Aminotransfer ALT/SGPT 21 U/L (13-56); Albumin, Serum 3.3 g/dL (3.2-5.0); Alkaline Phosphatase 114 U/L (45-117); Anion Gap 6 (5-15); BUN 6 mg/dL (7-18); BUN/Creat Ratio 8.6 RATIO (10-20); Calcium,Total 8.6 mg/dL (8.5-10.1); Chloride 107 mmol/L (98-107); Cholesterol 239 mg/dL (200); EST Glomerular Filtration Rate 88 mL/min (>60); Est Glom Filt Rate - Afr Amer 106 mL/min (>60); Estimated Creatinine Clearance 42.68 ml/min; Globulin 3.6 g/dL (2.2-4.2); Glucose 121 mg/dL (74-106); High Density Lipoprotein 32 mg/dL; Potassium 4.5 mmol/L (3.5-5.1); Protein, Total 6.9 g/dL (6.4-8.2); Sodium Level 137 mmol/L (136-145); Thyroid Stim Hormone (TSH) 2.39 uIU/mL (0.358-3.74); Triglycerides 379 mg/dL; Very Low Density Lipoprotein 76 mg/dL (5-40)
== END 2019-03-19 11:57 | disposition home or self-care (01) ==
LOC: SDC 08:20 → AC 08:47
PROVIDERS: Family Provider Preventive Medicine Occupational Medicine; PCP Preventive Medicine Occupational Medicine; Referring Provider Anesthesiology Pain Medicine; Visit Provider Anesthesiology Pain Medicine
PROC: 3E0S3BZ Introduction of Anesthetic Agent into Epidural Space, Percutaneous Approach (ICD-10-PCS; CPT 62282; principal; 2019-03-19 10:25)
DX: M47.27 Other spondylosis with radiculopathy, lumbosacral region (principal); M51.17 Intervertebral disc disorders with radiculopathy, lumbosacral region; M48.07 Spinal stenosis, lumbosacral region; M48.061 Spinal stenosis, lumbar region without neurogenic claudication; M46.96 Unspecified inflammatory spondylopathy, lumbar region; M51.16 Intervertebral disc disorders with radiculopathy, lumbar region; M53.3 Sacrococcygeal disorders, not elsewhere classified; E11.9 Type 2 diabetes mellitus without complications; E78.00 Pure hypercholesterolemia, unspecified; F32.9 Major depressive disorder, single episode, unspecified; G43.909 Migraine, unspecified, not intractable, without status migrainosus; I10 Essential (primary) hypertension; F20.9 Schizophrenia, unspecified; M19.90 Unspecified osteoarthritis, unspecified site; F31.9 Bipolar disorder, unspecified; F41.9 Anxiety disorder, unspecified; Z79.84 Long term (current) use of oral hypoglycemic drugs; Z79.891 Long term (current) use of opiate analgesic; Z79.899 Other long term (current) drug therapy; F17.210 Nicotine dependence, cigarettes, uncomplicated
CPT/HCPCS: 62323; 36415; 64483; 77003; 80053; 80061; 82043; 82962; 84443; J7120; J3490

== ENCOUNTER → 2019-04-17 09:41 | Outpatient (CLI) | payer MEDICAID, SELFPAY ==
[2019-03-19 09:27] VITALS: BMI 42.0
--- NOTE | 2019-04-17 09:43 | BI_ITS ---
MAMMOGRAPHY - BILATERAL SCREENING REASON FOR EXAM: Female, 69 years old. Routine annual screening examination. PERTINENT HISTORY: Non-contributory. TECHNIQUE: Digital bilateral breast valerie (3D mammographic acquisition) in the CC and MLO projections. 2-D mediolateral oblique (MLO) and craniocaudad (CC) views of both breasts were obtained. CAD: Full Field Digital Mammography with Computer Added Detection was performed. COMPARISON: Comparison is made with prior examination dated March 09, 2018. FINDINGS: Breast Composition: The breasts are heterogeneously dense, which may obscure small masses. There are no dominant masses or suspicious calcifications. A tissue clip marker is once again seen in the superior slightly lateral retroareolar region of the left breast. Stable scattered benign-appearing calcifications. No other significant abnormalities are identified. There has been no significant change since the prior study. BI/SCREEN MAMM (CAD) W/VALERIE BILAT IMPRESSION: Stable bilateral screening mammogram. Yearly follow-up mammogram recommended. (A) ASSESSMENT CATEGORY: BIRADS Category 2: Benign. A letter regarding these results will be sent to the patient by the facility within 30 days. Approximately 10% of breast cancers are not detected by mammography. A normal mammogram should not delay biopsy of a clinically suspicious abnormality. [id number] Electronically Signed: Dwight Cleary, at 11:03 EST , Service support ,
== END ==
PROVIDERS: Family Provider Preventive Medicine Occupational Medicine; PCP Preventive Medicine Occupational Medicine; Referring Provider Preventive Medicine Occupational Medicine; Visit Provider Preventive Medicine Occupational Medicine
DX: Z12.31 Encounter for screening mammogram for malignant neoplasm of breast (principal)
CPT/HCPCS: 77063; 77067

== ENCOUNTER 2019-05-21 07:06 | Day surgery (SDC) | payer MEDICAID, SELFPAY ==
[2019-05-21 07:40] VITALS: BP 112/61; PULSE 50; RESP 16; TEMP 36.4; O2SAT 98; BMI 42.9
[2019-05-21] MEDS: Lactated Ringers 1,000 ML 100 ML IV (07:58)
[2019-05-21 08:06] LABS: Bedside Glucose 89 mg/dL (70-110)
--- NOTE | 2019-05-21 08:22 | RAD_ITS ---
STUDY: X-RAY - LUMBAR SPINE REASON FOR EXAM: Female, 69 years old. L3-S1 RADIO FREQ ABLATION TECHNIQUE: 7 coned-down intraoperative view(s) of the lumbar spine were obtained. COMPARISON: None FINDINGS: Intraoperative imaging provided for left L3-S1 radiofrequency ablation. RAD/Lumbar Spine 2 or 3 Views IMPRESSION: Intraoperative imaging provided for left L3-S1 radiofrequency ablation. Electronically Signed: Dwight Cleary, at 12:22 EST , Service support ,
[2019-05-21] MEDS: MethylPREDNISolone Acetate 80 MG/ML Vial (08:32)
[2019-05-21] MEDS: Bupivacaine 0.25% 30 ML Vial (08:32)
[2019-05-21 08:50] VITALS: BP 111/83; BP 112/61; PULSE 62; RESP 16; TEMP 36.9; O2SAT 95
[2019-05-21 08:55] VITALS: BP 111/64; BP 112/61; PULSE 60; RESP 16; O2SAT 95
[2019-05-21 09:00] VITALS: BP 108/66; BP 112/61; PULSE 61; RESP 16; O2SAT 94
[2019-05-21 09:05] VITALS: BP 102/88; BP 112/61; PULSE 63; RESP 16; TEMP 36.5; O2SAT 94
[2019-05-21 09:14] VITALS: BP 112/61
--- NOTE | 2019-05-21 12:13 | PCM.OPRPT ---
Report of Operation Date of Procedure: 05/21/19 Description of Surgical Findings:: PREOPERATIVE DIAGNOSIS: Lumbosacral spondylosis, lumbosacral degenerative disc disease, lumbar facet arthropathy POSTOPERATIVE DIAGNOSIS: Lumbosacral spondylosis, lumbosacral degenerative disc disease, lumbar facet arthropathy PROCEDURE PERFORMED: Left-sided lumbar radiofrequency ablation of the medial branch at L3, L4, L5, and S1. ANESTHESIA: MAC. BLOOD LOSS: Minimal. COMPLICATIONS: None. DESCRIPTION OF PROCEDURE: History and physical of today was reviewed. Risks and benefits of the procedure were explained. The patient understood and agreed to proceed. Informed consent was obtained. IV inserted per routine protocol. The patient was taken to the operating room and placed in the prone position with a pillow positioned underneath the abdomen. The left side of her lower back was prepped and draped in a sterile fashion using iodine x3. Under fluoroscopy guidance in an oblique view, the L3 through S1 vertebral bodies were visualized. The skin and subcutaneous tissue was anesthetized with approximately 10 mL of 1% lidocaine using a 25-gauge regular needle. Under direct visualization on fluoroscopy at approximately 25-degree angle, starting on the left L3, ending on the left S1, passing through the L4 and L5, using a 20-gauge 15-cm with a 10-mm curved active-tip radiofrequency ablation needle, the needle was passed through the skin. The tip of the needle was maneuvered and directed towards the superior medial gutter of the transverse process at the vicinity of the medial branch. Once the tip of the needle was in contact with the bone, the needle was pulled approximately 2 mm off the bone. The stylette of each needle was then removed. After negative aspiration of blood or CSF and confirmation on AP, oblique as well as lateral view, the radiofrequency ablation probe was then inserted at each level. Impedance was then recorded at L3 to be 212 ohm, at L4 to be 239 ohm, at L5 to be 228 ohm, and at S1 to be 257 ohm. Motor evoked potential was then initiated to 1.5 volt without any motor response at each corresponding level. The probe was then removed intact and a total of 6 mL of preservative-free 1% lidocaine was injected in divided doses between those four levels after negative aspiration of blood or CSF. The radiofrequency ablation probe was then reinserted. After confirmation on AP, oblique as well as lateral view, radiofrequency ablation was then initiated to 80 degree Celsius for 90 second at each level. Once concluded, the probe was then removed intact. A total of 6 mL of preservative-free 0.25% Marcaine with 40 mg of Depo-Medrol was injected in divided doses between those four levels. The needles were then removed intact. The patient experienced no sign or symptoms of intrathecal or intravascular injection. The patient experienced no paresthesia. The procedure was completed without any apparent difficulty or any complications. The patient appeared to tolerate it well. Sensory as well as motor exam was unchanged from prior to the procedure. ASSESSMENT AND PLAN: This is a 69-year-old female with lumbosacral spondylosis, lumbosacral degenerative disc disease, lumbar facet arthropathy status post left-sided lumbar radiofrequency ablation of the medial branch L3-S1, patient will continue her current medications patient phone approximately 2 weeks for reevaluation.
== END 2019-05-21 09:54 | disposition home or self-care (01) ==
LOC: SDC 07:06 → AC 07:07
PROVIDERS: PCP Preventive Medicine Occupational Medicine; Referring Provider Anesthesiology Pain Medicine; Visit Provider Anesthesiology Pain Medicine
PROC: (CPT 64635; principal; 2019-05-21 08:35)
DX: M47.27 Other spondylosis with radiculopathy, lumbosacral region (principal); M51.17 Intervertebral disc disorders with radiculopathy, lumbosacral region; M46.96 Unspecified inflammatory spondylopathy, lumbar region; M51.16 Intervertebral disc disorders with radiculopathy, lumbar region; M48.061 Spinal stenosis, lumbar region without neurogenic claudication; K59.09 Other constipation; E11.9 Type 2 diabetes mellitus without complications; E78.00 Pure hypercholesterolemia, unspecified; F32.9 Major depressive disorder, single episode, unspecified; I10 Essential (primary) hypertension; F20.9 Schizophrenia, unspecified; F31.9 Bipolar disorder, unspecified; F41.9 Anxiety disorder, unspecified; M19.90 Unspecified osteoarthritis, unspecified site; G43.909 Migraine, unspecified, not intractable, without status migrainosus; Z78.0 Asymptomatic menopausal state; Z87.19 Personal history of other diseases of the digestive system; Z79.84 Long term (current) use of oral hypoglycemic drugs; Z79.891 Long term (current) use of opiate analgesic; Z79.899 Other long term (current) drug therapy; F17.210 Nicotine dependence, cigarettes, uncomplicated
CPT/HCPCS: 64635; 64636 ×2; 72100; 76000; 82962; J7120

== ENCOUNTER 2019-09-17 08:05 | Day surgery (SDC) | payer MEDICAID, SELFPAY ==
[2019-09-17] VITALS (8 sets, daily range): BP systolic 112–142; BP diastolic 64–78; PULSE 55–62; RESP 16; TEMP 36.3–36.9; O2SAT 62–97; BMI 42.0
[2019-09-17] MEDS: Lactated Ringers 1,000 ML 100 ML IV (08:30)
[2019-09-17 08:36] LABS: Bedside Glucose 83 mg/dL (70-110)
--- NOTE | 2019-09-17 09:00 | RAD_ITS ---
STUDY: X-RAY - SACROILIAC JOINTS REASON FOR EXAM: Female, 69 years old. RIGHT SI JOINT BLOCK. 9.5 SEC. FL TECHNIQUE: 3 intraoperative view(s) of the sacroiliac joints were obtained. COMPARISON: None. FINDINGS: Intraoperative imaging provided for right SI joint block. RAD/Fluoro Guided Needle Placement IMPRESSION: Intraoperative imaging provided for right SI joint block. Electronically Signed: Dwight Cleary, at 14:09 EDT , Service support ,
[2019-09-17] MEDS: Bupivacaine 0.25% 30 ML Vial (09:21)
[2019-09-17] MEDS: MethylPREDNISolone Acetate 80 MG/ML Vial (09:22)
--- NOTE | 2019-09-17 09:35 | PCM.OPRPT ---
Report of Operation Date of Procedure: 09/17/19 Description of Surgical Findings:: PROCEDURE: Right sacroiliac joint steroid injection under fluoroscopic guidance PREOPERATIVE DIAGNOSIS: Sacroiliitis, sacroiliac joint dysfunction POSTOPERATIVE DIAGNOSIS: Sacroiliitis, sacroiliac joint dysfunction ANESTHESIA: MAC COMPLICATIONS: None BLOOD LOSS: Minimal PROCEDURE IN DETAIL: History and physical today was reviewed. Risks and benefits of the procedure were explained. The patient understood, agreed to our procedure, and informed consent was obtained. IV inserted per routine protocol. The patient was taken to the operating room, placed in a prone position with a pillow positioned underneath the abdomen. The lower back and buttock area was prepped and draped in a sterile fashion using iodine ?3 no direct visualization of fluoroscopy at approximately 15? angle of the bilateral sacroiliac joints were visualized skin and subcutaneous tissue were anesthetized approximately 5 cc of 1% lidocaine using a 25-gauge regular needle under direct visualization with fluoroscopy at approximately 15? angle starting on the right SI a 22-gauge 3-1/2 inch spinal needle the needle was advanced via the skin the tip of the knee was maneuvering directed towards the inferior one third of the posterior SI joint once the tip of the needle was at the vicinity of the joint after negative aspiration for blood or CSF a total of 1 cc of contrast were injected to confirm correct placement of the needle as well as cephalocaudad spread the confirmation was obtained on AP as well as oblique view after repeated negative aspiration and confirmation a total of 4 cc of preservative-free 0.25% Marcaine with 40 mg of Depo-Medrol were injected in and around the SI joint the needles were then removed intact, The patient experienced no signs or symptoms intrathecal, intravascular injection. The patient experienced no paraesthesia. The procedure was completed without any apparent difficulty, any complication. The patient appeared to tolerate well. ASSESSMENT AND PLAN: This is a 69-year-old female with sacroiliitis, sacroiliac joint dysfunction status post right sacroiliac joint steroid injection under fluoroscopic guidance. The patient will continue his current medications. The patient will follow in approximately 2 weeks for possible repeat of the procedure if indicated.
== END 2019-09-17 10:29 | disposition home or self-care (01) ==
LOC: SDC 08:06 → AC 08:07
PROVIDERS: PCP Preventive Medicine Occupational Medicine; Referring Provider Anesthesiology Pain Medicine; Visit Provider Anesthesiology Pain Medicine
PROC: 3E0U3BZ Introduction of Anesthetic Agent into Joints, Percutaneous Approach (ICD-10-PCS; CPT 64451; principal; 2019-09-17 09:25)
DX: M46.1 Sacroiliitis, not elsewhere classified (principal); M53.3 Sacrococcygeal disorders, not elsewhere classified; M51.37 Other intervertebral disc degeneration, lumbosacral region; M47.817 Spondylosis without myelopathy or radiculopathy, lumbosacral region; M48.061 Spinal stenosis, lumbar region without neurogenic claudication; M51.16 Intervertebral disc disorders with radiculopathy, lumbar region; M46.96 Unspecified inflammatory spondylopathy, lumbar region; I10 Essential (primary) hypertension; E11.9 Type 2 diabetes mellitus without complications; E78.00 Pure hypercholesterolemia, unspecified; F20.9 Schizophrenia, unspecified; F31.9 Bipolar disorder, unspecified; F41.9 Anxiety disorder, unspecified; M19.90 Unspecified osteoarthritis, unspecified site; G43.909 Migraine, unspecified, not intractable, without status migrainosus; Z78.0 Asymptomatic menopausal state; Z79.84 Long term (current) use of oral hypoglycemic drugs; Z79.891 Long term (current) use of opiate analgesic; Z79.899 Other long term (current) drug therapy; F17.210 Nicotine dependence, cigarettes, uncomplicated
CPT/HCPCS: 27096; 76000; 77002; 82962; J7120

== ENCOUNTER 2019-11-05 10:19 | Day surgery (SDC) | payer MEDICAID, SELFPAY ==
[2019-09-17 08:15] VITALS: BMI 42.0
[2019-11-05 11:27] VITALS: BP 104/55; PULSE 64; RESP 16; TEMP 36.1; O2SAT 96; BMI 42.3
[2019-11-05] MEDS: Lactated Ringers 1,000 ML 100 ML IV (11:40)
[2019-11-05 11:45] LABS: Bedside Glucose 86 mg/dL (70-110)
--- NOTE | 2019-11-05 12:02 | RAD_ITS ---
PROCEDURE: Caudal block. DATE OF EXAMINATION: 11/05/2019. INDICATION: Female, 69 years old. Chronic low back pain. FLUOROSCOPY TIME (if supplied): (19.2 seconds) minutes/seconds. A single image was submitted. Intraoperative imaging provided for caudal block. RAD/Fluoro Guided Needle Placement IMPRESSION: Intraoperative imaging provided for caudal block. Electronically Signed: Dwight Cleary, at 13:57 EDT , Service support ,
[2019-11-05] MEDS: MethylPREDNISolone Acetate 80 MG/ML Vial (12:06)
[2019-11-05] MEDS: Bupivacaine 0.25% 30 ML Vial (12:06)
[2019-11-05] MEDS: 0.9% Normal Saline (Pres. free 10 ML Vial (12:06)
[2019-11-05 12:15] VITALS: BP 104/55; BP 123/73; PULSE 72; RESP 14; TEMP 37.4; O2SAT 97
[2019-11-05 12:20] VITALS: BP 104/55; BP 114/64; PULSE 73; RESP 16; O2SAT 98
[2019-11-05 12:25] VITALS: BP 104/55; BP 112/69; PULSE 64; RESP 16; O2SAT 98
[2019-11-05 12:29] VITALS: BP 104/55; BP 123/92; PULSE 64; RESP 16; TEMP 36.8; O2SAT 96
[2019-11-05 13:04] VITALS: BP 104/55
--- NOTE | 2019-11-05 15:22 | PCM.OPRPT ---
Report of Operation Date of Procedure: 11/05/19 Description of Surgical Findings:: PREOPERATIVE DIAGNOSIS: Lumbosacral radiculopathy, lumbosacral degenerative disc disease, lumbosacral spinal stenosis POSTOPERATIVE DIAGNOSIS: Lumbosacral radiculopathy, lumbosacral degenerative disc disease, lumbosacral spinal stenosis PROCEDURE PERFORMED: Caudal epidural steroid injection. ANESTHESIA: MAC. BLOOD LOSS: Minimal. COMPLICATIONS: None. DESCRIPTION OF PROCEDURE: History and physical of today was reviewed. Risks and benefits of the procedure were explained. The patient understood and agreed to proceed. Informed consent was obtained. IV inserted per routine protocol. The patient was taken to the operating room and placed in the prone position with a pillow positioned underneath the abdomen. The lower back and tailbone area was prepped and draped in a sterile fashion using iodine x3. Under fluoroscopy guidance on a lateral view, the caudal space was identified. The skin and subcutaneous tissue was anesthetized with approximately 3 mL of 1% lidocaine using a 25-gauge regular needle. Under direct visualization with fluoroscopy, using a 22-gauge 3-1/2-inch spinal needle, the needle was advanced via the skin through the sacral hiatus. The tip of the needle was passed through the sacrococcygeal ligament and advanced to approximately S4 area. After negative aspiration of blood or CSF, a total of 3 mL of contrast was injected to confirm correct placement of the needle as well as cephalad spread. The spread was followed to approximately L5 area. After confirmation on AP as well as lateral view and repeated negative aspiration, a total of 15 mL of preservative-free 0.125% Marcaine with 80 mg of Depo-Medrol was injected easily. The needle was then removed intact. The patient experienced no sign or symptoms of intrathecal or intravascular injection. The patient experienced no paresthesia. The procedure was completed without any apparent difficulty or any complications. The patient appeared to tolerate it well. ASSESSMENT AND PLAN: This is a 69-year-old female with lumbosacral radiculopathy, lumbosacral disc disease, lumbosacral spinal stenosis status post caudal flow steroid injection patient will continue current medications patient found approximately 2 weeks for reevaluation.
== END 2019-11-05 13:15 | disposition home or self-care (01) ==
LOC: SDC 10:19 → AC 11:06
PROVIDERS: PCP Preventive Medicine Occupational Medicine; Referring Provider Anesthesiology Pain Medicine; Visit Provider Anesthesiology Pain Medicine
PROC: 3E0S3BZ Introduction of Anesthetic Agent into Epidural Space, Percutaneous Approach (ICD-10-PCS; CPT 62282; principal; 2019-11-05 11:55)
DX: M47.27 Other spondylosis with radiculopathy, lumbosacral region (principal); M51.17 Intervertebral disc disorders with radiculopathy, lumbosacral region; M48.07 Spinal stenosis, lumbosacral region; M51.16 Intervertebral disc disorders with radiculopathy, lumbar region; M46.96 Unspecified inflammatory spondylopathy, lumbar region; M53.3 Sacrococcygeal disorders, not elsewhere classified; M48.061 Spinal stenosis, lumbar region without neurogenic claudication; I10 Essential (primary) hypertension; E11.9 Type 2 diabetes mellitus without complications; E78.5 Hyperlipidemia, unspecified; F20.9 Schizophrenia, unspecified; M19.90 Unspecified osteoarthritis, unspecified site; G43.909 Migraine, unspecified, not intractable, without status migrainosus; F31.9 Bipolar disorder, unspecified; F41.9 Anxiety disorder, unspecified; Z79.891 Long term (current) use of opiate analgesic; Z79.899 Other long term (current) drug therapy; F17.210 Nicotine dependence, cigarettes, uncomplicated
CPT/HCPCS: 01992; 62323; 64483; 77002; 82962; J7120; J3490

== ENCOUNTER → 2019-11-28 10:12 | Outpatient (CLI) | payer MEDICAID, SELFPAY ==
[2019-11-05 11:27] VITALS: BMI 42.3
[2019-11-28 12:13] LABS: Microalbumin,Random Urine 7.5 mg/L (NO RANGE EST.); Microalbumin:Creatinine Ratio 8.8 mg/g CRE (<30 mg/g CRE)
[2019-11-28 12:24] LABS: ALB/GLOB Ratio 0.9 RATIO (0.9-2.4); AST(SGOT) 11 U/L (15-37); Alanine Aminotransfer ALT/SGPT 21 U/L (13-56); Albumin, Serum 3.3 g/dL (3.2-5.0); Alkaline Phosphatase 116 U/L (45-117); Anion Gap 2 (5-15); BUN 4 mg/dL (7-18); BUN/Creat Ratio 5.8 RATIO (10-20); Calcium,Total 8.8 mg/dL (8.5-10.1); Chloride 107 mmol/L (98-107); Cholesterol 241 mg/dL (200); Creatinine, Serum 0.69 mg/dL (0.55-1.02); EST Glomerular Filtration Rate 89 mL/min (>60); Est Glom Filt Rate - Afr Amer 108 mL/min (>60); Globulin 3.8 g/dL (2.2-4.2); Glucose 79 mg/dL (74-106); High Density Lipoprotein 29 mg/dL; Potassium 4.4 mmol/L (3.5-5.1); Protein, Total 7.1 g/dL (6.4-8.2); Sodium Level 140 mmol/L (136-145); Triglycerides 319 mg/dL; Very Low Density Lipoprotein 64 mg/dL (5-40)
== END ==
PROVIDERS: PCP Preventive Medicine Occupational Medicine; Visit Provider Preventive Medicine Occupational Medicine
DX: I10 Essential (primary) hypertension (principal); E11.9 Type 2 diabetes mellitus without complications; E78.2 Mixed hyperlipidemia
CPT/HCPCS: 36415; 80053; 80061; 82043; 82570

== ENCOUNTER 2020-01-07 06:53 | Day surgery (SDC) | payer MEDICAID, SELFPAY ==
[2020-01-07] VITALS (7 sets, daily range): BP systolic 110–120; BP diastolic 62–75; PULSE 57–65; RESP 16–20; TEMP 36.3–36.9; O2SAT 95–96; BMI 43.7
[2020-01-07] MEDS: Lactated Ringers 1,000 ML 100 ML IV (07:35)
[2020-01-07 07:41] LABS: Bedside Glucose 93 mg/dL (70-110)
--- NOTE | 2020-01-07 08:31 | RAD_ITS ---
CLINICAL HISTORY: Female, 69 years old. Spinal canal stenosis. Lower back pain PROCEDURE: Radiofrequency ablation L3-S1 FLUOROSCOPY TIME (if supplied): ( ) 9 FLUORO IMAGES, 30 FLUORO SEC, 15.68mGy FINDINGS: Radiofrequency ablation L3-S1 RAD/L/S Spine Min 4 Views IMPRESSION: Radiofrequency ablation L3-S1 Electronically Signed: Eduardo Castro, at 14:03 EDT Tel , Service support ,
[2020-01-07] MEDS: MethylPREDNISolone Acetate 80 MG/ML Vial (08:38)
[2020-01-07] MEDS: Bupivacaine 0.25% 30 ML Vial (08:38)
--- NOTE | 2020-01-07 16:43 | PCM.OPRPT ---
Report of Operation Date of Procedure: 01/07/20 Description of Surgical Findings:: PROCEDURE: Right-sided lumbar radiofrequency ablation of the medial branch L3, L4, L5, S1 PREOPERATIVE DIAGNOSES: Lumbosacral spondylosis, lumbosacral degenerative disc disease, lumbar facet arthropathy POSTOPERATIVE DIAGNOSES: Lumbosacral spondylosis, lumbosacral degenerative disc disease, lumbar facet arthropathy ANESTHESIA: MAC COMPLICATIONS: None BLOOD LOSS: Minimal PROCEDURE IN DETAIL: History and physical today was reviewed. Risks and benefits of procedure explained. The patient understood, agreed to the procedure and informed consent was obtained. IV inserted per routine protocol. The patient was taken to the operating room, placed in the prone position with a pillow positioned underneath the abdomen. The right side of the lower back was prepped and draped in a sterile fashion using iodine x 3. Under fluoroscopy guidance, on an oblique view, the L3 through S1 vertebral bodies were visualized. The skin and subcutaneous tissue was anesthetized with approximately 10 mL of 1% lidocaine using a 25-gauge regular needle. Under direct visualization with fluoroscopy at approximately 25-degree angle, starting on the right L3, ending on the right S1 passing through the L4-L5 using a 20-gauge 15 cm with a 10 mm curved active tip radiofrequency ablation needle the needle passed through the skin. The tip of the needle was maneuvered and directed towards the superior and medial gutter of the transverse process at the vicinity of the medial branch. Once the tip of the needle was in contact with the bone, the needle pulled approximately 2 mm up the bone. The stylet of each needle was then removed. After negative aspiration of blood with CSF and confirmation of AP as well as oblique view, radiofrequency ablation probe was then inserted at each level. Impedance was then recorded at L3 to be 201, at L4 289, at L5 286, at S1 398 ohm. Motor-evoked potential was then initiated to 1.5 volt without any motor response at each corresponding level. The probe was then removed intact and a total of 6 mL preservative-free 1% lidocaine was injected in divided doses between those 4 levels after negative aspiration of blood with CSF. The radiofrequency ablation probe was then reinserted after confirmation of AP, oblique as well as lateral view. Radiofrequency ablation was then initiated to 80 degrees Celsius for 90 seconds at each level. Once concluded, the probe was then removed intact and a total of 6 mL of preservative-free 0.25% Marcaine with 40 mg Depo-Medrol was injected in divided doses between those 4 levels. The needles were then removed intact. The patient experienced no signs or symptoms of intrathecal, intravascular injection. The patient experienced no paraesthesia. The procedure was completed without any apparent difficulty, any complication. The patient appeared to tolerate well. Sensory as well as motor exam was unchanged from prior to procedure. ASSESSMENT AND PLAN: This is a 69-year-old Female with lumbosacral spondylosis, lumbosacral degenerative disc disease, lumbar facet arthropathy, status post right-sided lumbar radiofrequency ablation of the medial branch L3 through S1. The patient will continue her current medications. The patient will follow up in approximately 2 weeks for reevaluation.
== END 2020-01-07 10:00 | disposition home or self-care (01) ==
LOC: SDC 06:54 → AC 06:54
PROVIDERS: PCP Preventive Medicine Occupational Medicine; Referring Provider Anesthesiology Pain Medicine; Visit Provider Anesthesiology Pain Medicine
PROC: (CPT 64635; principal; 2020-01-07 08:45)
DX: M47.817 Spondylosis without myelopathy or radiculopathy, lumbosacral region (principal); M51.37 Other intervertebral disc degeneration, lumbosacral region; M46.96 Unspecified inflammatory spondylopathy, lumbar region; M48.061 Spinal stenosis, lumbar region without neurogenic claudication; M51.16 Intervertebral disc disorders with radiculopathy, lumbar region; I10 Essential (primary) hypertension; E11.9 Type 2 diabetes mellitus without complications; F20.9 Schizophrenia, unspecified; F31.9 Bipolar disorder, unspecified; F41.9 Anxiety disorder, unspecified; E78.00 Pure hypercholesterolemia, unspecified; M19.90 Unspecified osteoarthritis, unspecified site; G43.909 Migraine, unspecified, not intractable, without status migrainosus; Z91.5 Personal history of self-harm; Z78.0 Asymptomatic menopausal state; Z87.19 Personal history of other diseases of the digestive system; Z79.84 Long term (current) use of oral hypoglycemic drugs; Z79.891 Long term (current) use of opiate analgesic; Z79.899 Other long term (current) drug therapy; F17.210 Nicotine dependence, cigarettes, uncomplicated
CPT/HCPCS: 01992; 64635; 64636 ×2; 72110; 76000; 82962; J7120

== ENCOUNTER → 2020-02-04 09:38 | Outpatient (CLI) | payer MEDICAID, SELFPAY ==
[2020-01-07 07:15] VITALS: BMI 43.7
--- NOTE | 2020-02-04 09:50 | RAD_ITS ---
STUDY: X-RAY - RIGHT KNEE REASON FOR EXAM: Right knee pain, no specific injury. TECHNIQUE: 4 view(s) of the knee. COMPARISON: Radiographs 01/20/2011. FINDINGS: Normal visualized distal femur. Normal visualized proximal tibia and fibula. Normal proximal tibiofibular articulation. There are marginal osteophytes and severe joint space narrowing of the medial femorotibial compartment. There is moderately severe joint space narrowing of the lateral femorotibial compartment. There are are marginal osteophytes and mild joint space narrowing of the patellofemoral articulation. There is interval development of a posterior intra-articular body. RAD/Knee 4 or More Views IMPRESSION: Increased right knee arthrosis. Intra-articular body. Electronically Signed: Patricio Uribe MD at 14:22 EST Tel , Service support ,
== END ==
PROVIDERS: PCP Preventive Medicine Occupational Medicine; Referring Provider Nurse Practitioner Family; Visit Provider Nurse Practitioner Family
DX: M25.561 Pain in right knee (principal)
CPT/HCPCS: 73564

== ENCOUNTER 2020-02-18 05:33 | Day surgery (SDC) | payer MEDICAID, SELFPAY ==
[2020-01-07 07:15] VITALS: BMI 43.7
[2020-02-18] VITALS (7 sets, daily range): BP systolic 97–125; BP diastolic 59–73; PULSE 57–71; RESP 16–18; TEMP 36.3–36.4; O2SAT 94–96; BMI 44.1
[2020-02-18 06:41] LABS: Bedside Glucose 109 mg/dL (70-110)
[2020-02-18] MEDS: Lactated Ringers 1,000 ML 100 ML IV (06:59)
--- NOTE | 2020-02-18 07:30 | RAD_ITS ---
PROCEDURE: Left L3-S1 lumbar radiofrequency ablation. DATE OF EXAMINATION: 02/18/2020. INDICATION: Female, 69 years old. Chronic back pain. FLUOROSCOPY TIME (if supplied): (26.5 seconds) minutes/seconds. 7 intraoperative views were obtained. Intraoperative imaging provided for left L3-S1 radiofrequency ablation. RAD/L/S Spine Min 4 Views IMPRESSION: Intraoperative imaging provided for left L3-S1 radiofrequency ablation. Electronically Signed: Dwight Cleary, at 13:08 EST , Service support ,
[2020-02-18] MEDS: MethylPREDNISolone Acetate 40 MG/ML Vial IM (07:42)
[2020-02-18] MEDS: Bupivacaine 0.25% 30 ML Vial (07:42)
--- NOTE | 2020-02-18 07:59 | PCM.OPRPT ---
Report of Operation Date of Procedure: 02/18/20 Description of Surgical Findings:: PROCEDURE: Left-sided lumbar radiofrequency ablation of the medial branch L3, L4, L5, S1 PREOPERATIVE DIAGNOSES: Lumbosacral spondylosis, lumbosacral degenerative disc disease, lumbar facet arthropathy POSTOPERATIVE DIAGNOSES: Lumbosacral spondylosis, lumbosacral degenerative disc disease, lumbar facet arthropathy ANESTHESIA: MAC COMPLICATIONS: None BLOOD LOSS: Minimal PROCEDURE IN DETAIL: History and physical today was reviewed. Risks and benefits of procedure explained. The patient understood, agreed to the procedure and informed consent was obtained. IV inserted per routine protocol. The patient was taken to the operating room, placed in the prone position with a pillow positioned underneath the abdomen. The left side of the lower back was prepped and draped in a sterile fashion using iodine x 3. Under fluoroscopy guidance, on an oblique view, the L3 through S1 vertebral bodies were visualized. The skin and subcutaneous tissue was anesthetized with approximately 10 mL of 1% lidocaine using a 25-gauge regular needle. Under direct visualization with fluoroscopy at approximately 25-degree angle, starting on the left L3, ending on the left S1 passing through the L4-L5 using a 20-gauge 15 cm with a 10 mm curved active tip radiofrequency ablation needle the needle passed through the skin. The tip of the needle was maneuvered and directed towards the superior and medial gutter of the transverse process at the vicinity of the medial branch. Once the tip of the needle was in contact with the bone, the needle pulled approximately 2 mm up the bone. The stylet of each needle was then removed. After negative aspiration of blood with CSF and confirmation of AP as well as oblique view, radiofrequency ablation probe was then inserted at each level. Impedance was then recorded at L3 to be 253, at L4 222, at L5 233, at S1 237 ohm. Motor-evoked potential was then initiated to 1.5 volt without any motor response at each corresponding level. The probe was then removed intact and a total of 6 mL preservative-free 1% lidocaine was injected in divided doses between those 4 levels after negative aspiration of blood with CSF. The radiofrequency ablation probe was then reinserted after confirmation of AP, oblique as well as lateral view. Radiofrequency ablation was then initiated to 80 degrees Celsius for 90 seconds at each level. Once concluded, the probe was then removed intact and a total of 6 mL of preservative-free 0.25% Marcaine with 40 mg Depo-Medrol was injected in divided doses between those 4 levels. The needles were then removed intact. The patient experienced no signs or symptoms of intrathecal, intravascular injection. The patient experienced no paraesthesia. The procedure was completed without any apparent difficulty, any complication. The patient appeared to tolerate well. Sensory as well as motor exam was unchanged from prior to procedure. ASSESSMENT AND PLAN: This is a 69-year-old Female with lumbosacral spondylosis, lumbosacral degenerative disc disease, lumbar facet arthropathy, status post left-sided lumbar radiofrequency ablation of the medial branch L3 through S1. The patient will continue her current medications. The patient will follow up in approximately 2 weeks for reevaluation.
== END 2020-02-18 09:04 | disposition home or self-care (01) ==
LOC: SDC 05:33 → AC 05:34
PROVIDERS: PCP Preventive Medicine Occupational Medicine; Referring Provider Anesthesiology Pain Medicine; Visit Provider Anesthesiology Pain Medicine
PROC: (CPT 64635; principal; 2020-02-18 07:15)
DX: M51.17 Intervertebral disc disorders with radiculopathy, lumbosacral region (principal); M51.16 Intervertebral disc disorders with radiculopathy, lumbar region; M46.96 Unspecified inflammatory spondylopathy, lumbar region; M48.061 Spinal stenosis, lumbar region without neurogenic claudication; I10 Essential (primary) hypertension; E11.9 Type 2 diabetes mellitus without complications; E78.5 Hyperlipidemia, unspecified; F20.9 Schizophrenia, unspecified; F31.9 Bipolar disorder, unspecified; F41.9 Anxiety disorder, unspecified; M19.90 Unspecified osteoarthritis, unspecified site; G43.909 Migraine, unspecified, not intractable, without status migrainosus; E78.00 Pure hypercholesterolemia, unspecified; Z91.5 Personal history of self-harm; Z78.0 Asymptomatic menopausal state; Z87.19 Personal history of other diseases of the digestive system; Z79.84 Long term (current) use of oral hypoglycemic drugs; Z79.899 Other long term (current) drug therapy; F17.210 Nicotine dependence, cigarettes, uncomplicated
CPT/HCPCS: 01992; 64635; 64636 ×2; 72110; 76000; 82962; J7120

== ENCOUNTER 2020-04-07 08:30 | Day surgery (SDC) | payer MEDICAID, SELFPAY ==
[2020-02-18 06:14] VITALS: BMI 44.1
[2020-04-07] VITALS (7 sets, daily range): BP systolic 107–117; BP diastolic 56–70; PULSE 58–73; RESP 16–18; TEMP 36.4–36.5; O2SAT 93–97; BMI 44.3
[2020-04-07] MEDS: Lactated Ringers 1,000 ML 75 ML IV (10:10)
[2020-04-07 10:31] LABS: Bedside Glucose 93 mg/dL (70-110)
--- NOTE | 2020-04-07 11:35 | RAD_ITS ---
PROCEDURE: Caudal block. DATE OF EXAMINATION: 04/07/2020 INDICATION: Female, 70 years old. Chronic low back pain FLUOROSCOPY TIME (if supplied): (11 seconds) minutes/seconds Intraoperative imaging was provided for caudal block. RAD/Fluor Guidance for Spine Inj IMPRESSION: Intraoperative images provided for caudal block. Electronically Signed: Dwight Cleary, at 13:43 EST , Service support ,
[2020-04-07] MEDS: MethylPREDNISolone Acetate 40 MG/ML Vial IM (11:38)
[2020-04-07] MEDS: Bupivacaine 0.25% 30 ML Vial (11:38)
[2020-04-07] MEDS: 0.9% Normal Saline (Pres. free 10 ML Vial (11:38)
[2020-04-07] MEDS: Lidocaine 1% (5 ml sdv) 5 ML Vial (11:38)
--- NOTE | 2020-04-07 11:45 | PCM.OPRPT ---
Report of Operation Date of Procedure: 04/07/20 Description of Surgical Findings:: PREOPERATIVE DIAGNOSIS: Lumbosacral radiculopathy, lumbosacral degenerative disc disease, lumbosacral spinal stenosis POSTOPERATIVE DIAGNOSIS: Lumbosacral radiculopathy, lumbosacral degenerative disc disease, lumbosacral spinal stenosis PROCEDURE PERFORMED: Diagnostic/therapeutic caudal epidural steroid injection. ANESTHESIA: MAC. BLOOD LOSS: Minimal. COMPLICATIONS: None. DESCRIPTION OF PROCEDURE: History and physical of today was reviewed. Risks and benefits of the procedure were explained. The patient understood and agreed to proceed. Informed consent was obtained. IV inserted per routine protocol. The patient was taken to the operating room and placed in the prone position with a pillow positioned underneath the abdomen. The lower back and tailbone area was prepped and draped in a sterile fashion using iodine x3. Under fluoroscopy guidance on a lateral view, the caudal space was identified. The skin and subcutaneous tissue was anesthetized with approximately 3 mL of 1% lidocaine using a 25-gauge regular needle. Under direct visualization with fluoroscopy, using a 22-gauge 3-1/2-inch spinal needle, the needle was advanced via the skin through the sacral hiatus. The tip of the needle was passed through the sacrococcygeal ligament and advanced to approximately S4 area. After negative aspiration of blood or CSF, a total of 3 mL of contrast was injected to confirm correct placement of the needle as well as cephalad spread. The spread was followed to approximately L5 area. After confirmation on AP as well as lateral view and repeated negative aspiration, a total of 15 mL of preservative-free 0.125% Marcaine with 80 mg of Depo-Medrol was injected easily. The needle was then removed intact. The patient experienced no sign or symptoms of intrathecal or intravascular injection. The patient experienced no paresthesia. The procedure was completed without any apparent difficulty or any complications. The patient appeared to tolerate it well. ASSESSMENT AND PLAN: This is a 70-year-old female with lumbosacral radiculopathy, lumbosacral degenerative disc disease, lumbosacral spinal stenosis status post diagnostic/therapeutic caudal epidural steroid injection, patient will continue her current medications, patient will follow in approximately 2 weeks for reevaluation.
== END 2020-04-07 12:44 | disposition home or self-care (01) ==
LOC: SDC 08:42 → AC 09:30
PROVIDERS: PCP Preventive Medicine Occupational Medicine; Referring Provider Anesthesiology Pain Medicine; Visit Provider Anesthesiology Pain Medicine
PROC: 3E0S3BZ Introduction of Anesthetic Agent into Epidural Space, Percutaneous Approach (ICD-10-PCS; CPT 62282; principal; 2020-04-07 10:45)
DX: M47.27 Other spondylosis with radiculopathy, lumbosacral region (principal); M51.17 Intervertebral disc disorders with radiculopathy, lumbosacral region; M48.07 Spinal stenosis, lumbosacral region; M48.061 Spinal stenosis, lumbar region without neurogenic claudication; M51.36 Other intervertebral disc degeneration, lumbar region; M46.96 Unspecified inflammatory spondylopathy, lumbar region; M53.3 Sacrococcygeal disorders, not elsewhere classified; I10 Essential (primary) hypertension; E11.9 Type 2 diabetes mellitus without complications; E78.5 Hyperlipidemia, unspecified; F20.9 Schizophrenia, unspecified; M19.90 Unspecified osteoarthritis, unspecified site; F31.9 Bipolar disorder, unspecified; F41.9 Anxiety disorder, unspecified; E78.00 Pure hypercholesterolemia, unspecified; G43.909 Migraine, unspecified, not intractable, without status migrainosus; Z78.0 Asymptomatic menopausal state; Z91.5 Personal history of self-harm; Z87.19 Personal history of other diseases of the digestive system; Z79.84 Long term (current) use of oral hypoglycemic drugs; Z79.899 Other long term (current) drug therapy; F17.210 Nicotine dependence, cigarettes, uncomplicated
CPT/HCPCS: 01992; 62323; 64483; 77003; 82962; J7120; J3490

== ENCOUNTER 2020-05-19 08:13 | Day surgery (SDC) | payer MEDICAID, SELFPAY ==
[2020-04-07 10:00] VITALS: BMI 44.3
[2020-05-19] VITALS (9 sets, daily range): BP systolic 102–127; BP diastolic 58–73; PULSE 58–67; RESP 16; TEMP 36.2–37.1; O2SAT 93–96; BMI 45.1
[2020-05-19] MEDS: Lactated Ringers 1,000 ML 100 ML IV (08:55)
--- NOTE | 2020-05-19 09:23 | RAD_ITS ---
STUDY: X-RAY - SACROILIAC JOINTS REASON FOR EXAM: Female, 70 years old. RIGHT SI JOINT INJECTION TECHNIQUE: 1 intraoperative view(s) of the sacroiliac joints were obtained. COMPARISON: None. FINDINGS: Intraoperative imaging provided for right sacroiliac joint injection. RAD/Fluoro Guided Needle Placement IMPRESSION: Intraoperative imaging provided for right sacroiliac joint injection. Electronically Signed: Dwight Cleary MD at 12:27 EST , Service support ,
[2020-05-19] MEDS: Bupivacaine 0.25% 30 ML Vial (09:25)
[2020-05-19] MEDS: Lidocaine 1% (5 ml sdv) 5 ML Vial (09:25)
[2020-05-19] MEDS: MethylPREDNISolone Acetate 40 MG/ML Vial IM (09:25)
--- NOTE | 2020-05-19 15:53 | OP.PCM_ITS ---
Report of Operation Date of Procedure: 05/19/20 Description of Surgical Findings:: PREOPERATIVE DIAGNOSES: 1. Sacroiliitis. 2. Sacroiliac joint dysfunction. POSTOPERATIVE DIAGNOSES: 1. Sacroiliitis. 2. Sacroiliac joint dysfunction. PROCEDURE PERFORMED: Right-sided sacroiliac joint steroid injection under fluoroscopy guidance. ANESTHESIA: MAC. BLOOD LOSS: Minimal. COMPLICATIONS: None. DESCRIPTION OF PROCEDURE: History and physical of today was reviewed. Risks and benefits of the procedure were explained. The patient understood and agreed to the procedure. Informed consent was obtained. IV inserted per routine pro tocol. The patient was taken to the operating room and placed in the prone position with a pillow positioned underneath the abdomen. The right lower back and buttock area was prepped and draped in a sterile fashion using iodine x3. Under fluoroscopy guidance on an AP view, the right SI joint was visualized. The skin and subcutaneous tissue was anesthetized with approximately 3 mL of 1% lidocaine using a 25-gauge regular needle. Under direct visualization with fluoroscopy at approximately 15-degree angle, using a 22-gauge 3-1/2-inch spinal needle, the needle was advanced via the skin. The tip of the needle was maneuvered and directed towards the inferior one-third of the posterior SI joint. Once the tip of the needle was at the vicinity of the joint, after negative aspiration for blood or CSF, a total of 1 mL of contrast was injected to confirm correct placement of the needle as well as cephalocaudal spread. Confirmation was obtained on AP as well as oblique view. After repeated negative aspiration and confirmation, a total of 4 mL of preservative-free 0.25% Marcaine with 40 mg of Depo-Medrol was injected in and around the SI joint. The needle was then removed intact. The patient experienced no sign or symptoms of intrathecal or intravascular injection. The patient experienced no paresthesia. The procedure was completed without any apparent difficulty or any complic ations. The patient appeared to tolerate it well. ASSESSMENT AND PLAN: This is a 70-year-old female with sacroiliitis, sacroiliac joint dysfunction status post right-sided sacroiliac joint steroid injection under fluoroscopic guidance patient will continue her current medications, patient will follow in approximately 2 weeks for reevaluation.
== END 2020-05-19 11:13 | disposition home or self-care (01) ==
LOC: SDC 08:14 → AC 08:20
PROVIDERS: PCP Preventive Medicine Occupational Medicine; Referring Provider Anesthesiology Pain Medicine; Visit Provider Anesthesiology Pain Medicine
PROC: 3E0U3GC Introduction of Other Therapeutic Substance into Joints, Percutaneous Approach (ICD-10-PCS; CPT 27096; principal; 2020-05-19 10:15)
DX: M46.1 Sacroiliitis, not elsewhere classified (principal); M53.3 Sacrococcygeal disorders, not elsewhere classified; M51.37 Other intervertebral disc degeneration, lumbosacral region; M47.817 Spondylosis without myelopathy or radiculopathy, lumbosacral region; M48.061 Spinal stenosis, lumbar region without neurogenic claudication; M51.16 Intervertebral disc disorders with radiculopathy, lumbar region; M46.96 Unspecified inflammatory spondylopathy, lumbar region; I10 Essential (primary) hypertension; E11.9 Type 2 diabetes mellitus without complications; E78.5 Hyperlipidemia, unspecified; F20.9 Schizophrenia, unspecified; M19.90 Unspecified osteoarthritis, unspecified site; F31.9 Bipolar disorder, unspecified; F41.9 Anxiety disorder, unspecified; G43.909 Migraine, unspecified, not intractable, without status migrainosus; Z78.0 Asymptomatic menopausal state; Z91.5 Personal history of self-harm; Z87.19 Personal history of other diseases of the digestive system; Z79.84 Long term (current) use of oral hypoglycemic drugs; Z79.899 Other long term (current) drug therapy; F17.210 Nicotine dependence, cigarettes, uncomplicated
CPT/HCPCS: 27096; 76000; 77002; J7120

== ENCOUNTER 2020-07-13 08:25 | Inpatient (IN) | payer MEDICAID, SELFPAY ==
[2020-05-19 08:51] VITALS: BMI 45.1
[2020-07-13] VITALS (12 sets, daily range): BP systolic 90–125; BP diastolic 50–69; PULSE 53–74; RESP 15–24; TEMP 36.4–37.2; O2SAT 87–95; BMI 43.0; BMI 42.8; BMI 42.7
--- NOTE | 2020-07-13 08:46 | RAD_ITS ---
STUDY: X-RAY CHEST REASON FOR EXAM: Female, 70 years old. chest pain TECHNIQUE: Single AP portable view of the chest. COMPARISON: 01/14/2017 FINDINGS: Reticular opacities throughout the lungs consistent with interstitial pulmonary edema. There is no demonstrated pleural abnormality. There is moderate cardiac enlargement. Normal mediastinum and julieth. There is prominence of the pulmonary hilar arteries and peripheral pulmonary arteries, consistent with congestive heart failure (CHF). Normal visualized aortic arch and descending thoracic aorta. Normal visualized thoracic spine. Normal visualized ribs, clavicles, and shoulders. There is no demonstrated abnormality of the visualized soft tissue structures of the upper abdomen. RAD/Chest 1 View (Portable) IMPRESSION: Moderate congestive heart failure. Electronically Signed: Enrike Cary MD at 9:51 EDT Tel , Service support ,
--- NOTE | 2020-07-13 08:46 | EKG12_ITS ---
Test Reason : CHEST PAIN Blood Pressure : / mmHG Vent. Rate : 067 BPM Atrial Rate : 067 BPM P-R Int : 120 ms QRS Dur : 088 ms QT Int : 418 ms P-R-T Axes : 000 088 063 degrees QTc Int : 441 ms Normal sinus rhythm Nonspecific ST and T wave abnormality Abnormal ECG Confirmed by JANIE GAFFNEY, BRANDI ([id number]), photo editor MATT ZAMORANO ([id number]) on 07/14/2020 2:23:41 PM Referred By: SAMAN Confirmed By:BRANDI LIMA MD
[2020-07-13] MEDS: Aspirin 81 MG TAB.CHEW 324 MG PO (09:13)
[2020-07-13 09:29] LABS: Absolute Lymphocyte Count 1.09 X10^3/uL (0.83-4.51); Absolute Neutrophil Count 8.1 X10^3/uL (2.0-7.7); Basophil# 0.03 X10^3/uL; Basophil% 0.3 % (0-1); Eosinophil# 0.13 X10^3/uL; Eosinophils% 1.3 % (0-5); Hematocrit 38.7 % (37-47); Hemoglobin 12.2 g/dL (12.0-15.0); Lymphocyte # 1.09 X10^3/ul (4.0); Lymphocyte % 10.8 % (19-41); Mean Corp Hgb Conc 31.5 g/dL (32-36); Mean Corpuscular Hgb 29.5 pg (27.0-32.0); Mean Corpuscular Volume 93.7 fL (81-99); Mean Platelet Vol. 9.5 fl (6.2-12.0); Monocyte# 0.68 X10^3/uL; Monocyte% 6.7 % (0-10); NRBC Flagged by Analyzer 0 % (0-5); Neutrophil # 8.07 X10^3/uL (2.7-7.7); Platelet Count 256 K/mm3 (150-450); RBC Distribution Width CV 15.8 % (11.6-14.6); RBC Distribution Width SD 54.9 fl (35.1-43.9); Red Blood Count 4.13 M/mm3 (4.2-5.4); White Blood Count 10.1 K/mm3 (4.4-11.0)
[2020-07-13 09:47] LABS: Anion Gap 7 (5-15); BUN 9 mg/dL (7-18); BUN/Creat Ratio 8.8 RATIO (10-20); Calcium,Total 8.7 mg/dL (8.5-10.1); Chloride 99 mmol/L (98-107); Creatinine, Serum 1.02 mg/dL (0.55-1.02); EST Glomerular Filtration Rate 57 mL/min (>60); Est Glom Filt Rate - Afr Amer 68 mL/min (>60); Estimated Creatinine Clearance 46.67 ml/min; Glucose 201 mg/dL (74-106); Sodium Level 132 mmol/L (136-145)
[2020-07-13 09:58] LABS: D-Dimer Quantitative (DVT/PE) 1.25 FEU/ug/m (0.27-0.49)
--- NOTE | 2020-07-13 10:02 | CT_ITS ---
STUDY: CTA CHEST REASON FOR EXAM: Female, 70 years old. chest pain/SOB RADIATION DOSAGE (If Supplied By Facility): CTDIvol = ( 13.81 ) mGy, DLP = ( 488.25 ) mGycm TECHNIQUE: The examination was performed with the intravenous administration of IV 100mL Isovue-370. Post-processing of the angiographic images was performed, with multiplanar reformation and 3D reconstruction. Individualized dose optimization techniques were used for this CT. COMPARISON: None. FINDINGS: Normal enhancement of the main pulmonary artery and right and left pulmonary arteries. Normal enhancement of the bilateral peripheral pulmonary arteries. Small filling defect within the lateral branch of the right middle lobe pulmonary artery consistent with a subsegmental pulmonary embolism. Normal thoracic aorta and visualized great vessels. There is no demonstrated aortic dissection. There is a small pericardial effusion. Normal mediastinum. Normal hilar regions. Normal visualized trachea and bronchi. The lungs are well expanded. Some discoid atelectasis in the posterior left upper lobe. Small bilateral pleural effusions with bibasilar atelectasis. Normal chest wall structures. Normal osseous structures. Normal visualized upper abdomen. CT/CTA Chest W/WO Contrast IMPRESSION: 1. Positive for subsegmental pulmonary embolism in the right middle lobe. 2. Small bilateral pleural effusions with some bibasilar atelectasis. 3. Small pericardial effusion. Electronically Signed: Enrike Cary MD at 11:03 EDT Tel , Service support ,
--- NOTE | 2020-07-13 10:02 | ED.VIS.GEN ---
History of Present Illness Chief Complaint: Shortness of Breath Informant: Patient Narrative: 70-year-old female presenting with chest pain and shortness of breath. She describes the pain as aching and tight in the central chest. She states that she felt like she was having difficulty breathing as well. Onset of this was this morning. Patient states that she has had some troubles with some tachycardic rhythms on an outpatient basis. Her primary care doctor did put a Holter monitor on her for the last 48 hours however she had not turned it in yet. She states that she was placed on atenolol which does help with the rapid heart rate and palpitations. She denies a cardiac history. She is never had a stress test. Patient has no history of DVT/PE. Patient is complaining of shortness of breath on arrival to the ED however her chest pain only lasted for several minutes at home and is now resolved. Patient is noted to be hypoxic at 87% on examination was placed on 2 L O2 nasal cannula. - Past Medical History (1) Bipolar disorder Status: Chronic (2) HTN (hypertension) Status: Chronic (3) Diabetes Status: Chronic Past Medical History - Allergies and Home Meds Allergies/Adverse Reactions: Allergies hydrocodone Adverse Reaction (Verified 07/13/20 08:25) Other oxycodone HCl [From Percocet] Adverse Reaction (Verified 07/13/20 08:25) Other Primary Care Physician: Broderick Mi DO [Primary Care Provider] - Prior records reviewed: Yes Past Medical History: - - Reviewed in problem list Surgical History: noncontributory Lives: With Family - With son Smoking Status: Current every day smoker Alcohol: None Drugs: None Review of Systems General: Denies: Chills, Fever, Sweats Eyes: Denies: Visual changes - bilaterally, Diplopia ENT: Denies: Rhinorrhea, Sore throat Cardiovascular: Reports: Chest pain, Heart racing Respiratory: Reports: Dyspnea, Dyspnea on exertion Gastrointestinal: Denies: Abdominal pain, Nausea, Vomiting Genitourinary: Denies: Dysuria, Hematuria Musculoskeletal: Denies: Myalgias, Arthralgias Skin: Denies: Rash, Abscess Neurological: Denies: Headache, Weakness, Parasthesia Psych: Reports: Anxiety. Denies: Depression, Suicidal thoughts Physical Exam Vital Signs/Narrative: Vital Signs Temp Pulse Resp BP Pulse Ox 07/13/20 09:03 95 04/11/21 08:56 94 07/13/20 08:26 99.0 F 70 15 125/66 H 94 Inital Vital Signs reviewed: Yes General: Well nourished, No Acute Distress Head: Normocephalic, Atraumatic Eyes: Perrl, EOMI ENT: Moist mucous membranes, No rhinorrhea Cardiovascular: Regular rate, Regular rhythm Abdomen: Soft, Nontender, Nondistended Extremities: Nontender Skin: Normal color, No rash. Negative for: Cyanosis, Diaphoresis Neurological: Alert, Oriented x3, Cranial nerves II-XII grossly intact Psychological: Normal affect, Normal Mood Diagnostic/Tx/Re-eval Clinical Impression(s) from Imaging Studies Chest X-Ray 07/13/20 08:46 IMPRESSION: Moderate congestive heart failure. Electronically Signed: Enrike Cary MD at 9:51 EDT Tel , Service support , Chest CTA 07/13/20 10:02 IMPRESSION: 1. Positive for subsegmental pulmonary embolism in the right middle lobe. 2. Small bilateral pleural effusions with some bibasilar atelectasis. 3. Small pericardial effusion. Electronically Signed: Enrike Cary MD at 11:03 EDT Tel , Service support , Laboratory Data 07/13/20 07/13/20 07/13/20 08:40 08:40 09:10 WBC Cancelled Corrected WBC Cancelled RBC Cancelled Hgb Cancelled Hct Cancelled MCV Cancelled MCH Cancelled MCHC Cancelled RDW Std Deviation Cancelled RDW Coeff of Amarilys Cancelled Plt Count Cancelled MPV Cancelled Immature Gran % (Auto) Cancelled Neut % (Auto) Cancelled Lymph % (Auto) Cancelled [place] % (Auto) Cancelled Eos % (Auto) Cancelled Baso % (Auto) Cancelled Absolute Neuts (auto) Cancelled Absolute Lymphs (auto) Cancelled Total Counted Cancelled Neutrophils % (Manual) Cancelled Band Neutrophils % Cancelled Lymphocytes % (Manual) Cancelled Monocytes % (Manual) Cancelled Eosinophils % (Manual) Cancelled Basophils % (Manual) Cancelled Metamyelocytes % Cancelled Myelocytes % Cancelled Promyelocytes % Cancelled Blast Cells % Cancelled Plasma Cell % (Manual) Cancelled Other Cells % Cancelled Nucleated RBC % Cancelled Nucleated RBCs/100 WBC Cancelled Differential Comment Cancelled Diff Path Review Cancelled Hypersegmented Neuts Cancelled Atypical Lymphocytes Cancelled Reactive Lymphocytes Cancelled Smudge Cells Cancelled Toxic Granulation Cancelled Toxic Vacuolation Cancelled Dohle Bodies Cancelled Pratik Rods Cancelled Platelet Estimate Cancelled Plt Morphology Comment Cancelled RBC Morphology Cancelled Polychromasia Cancelled Hypochromasia Cancelled Poikilocytosis Cancelled Basophilic Stippling Cancelled Anisocytosis Cancelled Microcytosis Cancelled Macrocytosis Cancelled Spherocytes Cancelled Sickle Cells Cancelled Target Cells Cancelled Tear Drop Cells Cancelled Ovalocytes Cancelled Stomatocytes Cancelled [place] Bodies Cancelled Reanna Cells Cancelled Bite Cells Cancelled Crenated Cell Cancelled Acanthocytes (Spur) Cancelled Rouleaux Cancelled Schistocytes Cancelled D-Dimer Quant (PE/DVT) 1.25 H* Sodium 132 L Potassium 5.0 Chloride 99 Carbon Dioxide 26.0 Anion Gap 7 BUN 9 Creatinine 1.02 Estim Creat Clear Calc 46.67 Est GFR (MDRD) Af Amer 68 Est GFR (MDRD) Non-Af 57 L BUN/Creatinine Ratio 8.8 L Glucose 201 H Calcium 8.7 Troponin I < 0.015 B-Natriuretic Peptide 07/13/20 07/13/20 09:21 09:21 WBC 10.1 Corrected WBC RBC 4.13 L Hgb 12.2 Hct 38.7 MCV 93.7 MCH 29.5 MCHC 31.5 L RDW Std Deviation 54.9 H RDW Coeff of Amarilys 15.8 H Plt Count 256 MPV 9.5 Immature Gran % (Auto) 0.900 Neut % (Auto) 80.0 H Lymph % (Auto) 10.8 L [place] % (Auto) 6.7 Eos % (Auto) 1.3 Baso % (Auto) 0.3 Absolute Neuts (auto) 8.1 H Absolute Lymphs (auto) 1.09 Total Counted Neutrophils % (Manual) Band Neutrophils % Lymphocytes % (Manual) Monocytes % (Manual) Eosinophils % (Manual) Basophils % (Manual) Metamyelocytes % Myelocytes % Promyelocytes % Blast Cells % Plasma Cell % (Manual) Other Cells % Nucleated RBC % 0 Nucleated RBCs/100 WBC Differential Comment Diff Path Review Hypersegmented Neuts Atypical Lymphocytes Reactive Lymphocytes Smudge Cells Toxic Granulation Toxic Vacuolation Dohle Bodies Pratik Rods Platelet Estimate Plt Morphology Comment RBC Morphology Polychromasia Hypochromasia Poikilocytosis Basophilic Stippling Anisocytosis Microcytosis Macrocytosis Spherocytes Sickle Cells Target Cells Tear Drop Cells Ovalocytes Stomatocytes [place] Bodies [place] Cells Bite Cells Crenated Cell Acanthocytes (Spur) Rouleaux Schistocytes D-Dimer Quant (PE/DVT) Sodium Potassium Chloride Carbon Dioxide Anion Gap BUN Creatinine Estim Creat Clear Calc Est GFR (MDRD) Af Amer Est GFR (MDRD) Non-Af BUN/Creatinine Ratio Glucose Calcium Troponin I B-Natriuretic Peptide 231.7 H - Medical Decision Making Patient presenting with chest pain, shortness of breath and history of palpitations. She states that her doctor put her on atenolol for her intermittent palpitations even though he has not received the results of her Holter monitor. Patient denies any cardiac history. Patient states he is an every day smoker and loves to smoke her cigarettes. Patient denies fever, chills, cough, body aches. She states her chest pain has resolved and only lasted several minutes. Patient has no history of DVT/PE. Patient has EKG performed on arrival which shows a sinus rhythm at [address] changes. Patient's lab work shows white blood cell count 10.1 hemoglobin 12.2 platelets 256. BMP shows sodium 132, potassium 5.0, BUN 9, creatinine 1.02. BNP 231. Troponin negative. Chest x-ray as interpreted by myself shows moderate CHF findings. Radiology does agree. Since patient has an elevated D-dimer at 1.25 she had a CTA performed which shows a small right middle lobe subsegmental PE. It also shows mild CHF with small bilateral pleural effusions and a pericardial effusion which is small as interpreted by radiology. Patient discussed with hospitalist and since her blood pressure is 99 systolic he wishes to hold on Lasix currently and give her a 500 cc bolus. He also requests weightbase Lovenox. Patient was given 120 mg of Lovenox in the ED. Findings were discussed with patient and she is amenable to admission at this time. Impression: 1. Chest pain 2. New onset CHF 3. Right middle lobe subsegmental PE 4. Pericardial effusion ED Disposition - Plan for ED Patient: Referrals: Broderick Mi DO [Primary Care Provider] -
[2020-07-13 10:38] LABS: BNP,B-Type NATRIURETIC PEPTIDE 231.7 pg/mL (0-100)
--- NOTE | 2020-07-13 11:47 | HP.PCM_ITS ---
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 The patient is a 70 year old F with multiple comorbidities as listed above came to ER for shortness of breath and chest pain. Shortness of breath is gradual onset initially on exertion and then interfering with her activities of daily living and for few days, with minimal exertion and at rest. She describes chest pain midsternal without radiation to jaws, neck or shoulder or arm. She also had pounding sensation for few days. She had a tachycardic rhythm as an outpatient and was put on Holter monitor for 48 hours but she has not gone back to to PCP for further assessment. She was put on atenolol for palpitation. She denies dizziness, syncope. In ED, she was found to have right middle lobe subsegmental PE, bilateral small effusion with underlying bibasilar atelectasis and a small pericardial effusion. She has gained about 100 pounds in last 1 year, 50 to 60 pound in last 6 months. She has swelling of both lower extremities, arms and abdomen. D-dimer was elevated. BNP 231 1. Glucose 201. Besides that she is on high dose of Seroquel 600 mg at night for insomnia. Although initial blood pressure 125/66, heart rate 70 but blood pressure dropped to 90/57 and went up 117/57-500 NS bolus. I ordered 20 mg IV Lasix as her blood pressure was low and started on Lasix drip. Twelve-lead EKG shows normal sinus rhythm [address]-T abnormality, QTC 441 ms. She has mild T inversion V1 to V3. Previous EKG which showed sinus tachycardia 115 bpm with T inversion 1-lead V1. QTc 456. First troponin negative Past Medical History Past Medical History (Chronic Problems): Chronic Problems Sacrococcygeal disorders, not elsewhere classified (Chronic) Bilateral sacroiliitis (Chronic) Spondylosis of lumbosacral region without myelopathy or radiculopathy (Chronic) Degeneration of intervertebral disc of lumbosacral region (Chronic) Bipolar disorder (Chronic) HTN (hypertension) (Chronic) Diabetes (Chronic) Allergies hydrocodone Adverse Reaction (Verified 07/13/20 08:25) Other oxycodone HCl [From Percocet] Adverse Reaction (Verified 07/13/20 08:25) Other Home Medications: Ambulatory Orders Medication Instructions Recorded Amlodipine [Norvasc] 5 mg PO DAILY 07/02/14 metFORMIN HCl [Glucophage] 500 mg PO BIDCM 07/02/14 traMADol [Ultram (G)] 50 mg PO BID 07/02/14 Bisacodyl [Dulcolax] 5 mg PO DAILY 10/21/14 Atenolol [Tenormin (Beta Chavez)] 50 mg PO QHS 12/14/17 Docusate Sodium [Colace] 100 mg PO BID 12/14/17 Escitalopram Oxalate [Lexapro] 10 mg PO QHS 12/14/17 Lisinopril [Prinivil] 5 mg PO LUNCH 12/14/17 Quetiapine Fumarate [Seroquel] 600 mg PO QHS 12/14/17 Tizanidine HCl 4 mg PO BID 12/14/17 Gabapentin [Neurontin] 600 mg PO 4X/DAY 09/04/18 Cetirizine HCl [Zyrtec] 10 mg PO QODAY 03/16/19 Multivitamin [Daily Multiple 1 ea PO DAILY 03/16/19 Vitamin] Prednisolone Acetate/Pf 2 ml OP DAILY 03/16/19 [Prednisolone Acet 1% Eye Drop] Buspirone HCl 10 mg PO BID 05/14/20 Surgical History: noncontributory Lives: With Family - With son Smoking Status: Current every day smoker Tobacco Use: Cigarettes Alcohol: None Drugs: None - *Family History Paternal History Items: No pertinent history - No first-degree family history of PE/DVT Review of Systems Constitutional: Denies: Chills, Fever, Weight Change Eyes: Reports: Vision Change - 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 HEENT: Reports: Hard of Hearing. Denies: Head Aches, Sinus Congestion, Sinus Drainage Cardiovascular: Reports: Chest Pain, Chest Pressure, Edema, Orthopnea, Palpitations, Paroxysmal Noc. Dyspnea. Denies: Syncope Respiratory: Reports: Shortness of Breath, Shortness of breath at rest, Shortness of breath upon exertion. Denies: Cough, Sputum production Gastrointestinal: Denies: Abdominal Pain, Nausea, Vomiting Genitourinary: Denies: Dysuria, Frequency Musculoskeletal: Reports: Back Pain, Joint Pain. Denies: Joint Tenderness Skin: Denies: Rash, Wounds Neurological: Reports: Balance problems, Incoordination. Denies: Focal weakness, Numbness, Tingling Psychiatric: Reports: Anxiety, Depression. Denies: Homicidal Ideations, Suicidal Ideations Hematologic/ Lymphatic: Denies: Easy Bruising, Easy Bleeding VTE Information - Inpt Only VTE Present on Admission: Yes VTE Mechan Device Prophylaxis: None VTE Pharm Prophylaxis ordered?: No Reason prophylaxis not ordered:: Procedure Not Indicated - Patient on therapeutic dose of Lovenox and then Eliquis Objective: General: Alert, Oriented x3, Cooperative HEENT: Atraumatic, PERRLA, EOMI, Normocephalic Oral: No Gingival or Mucosal Lesions/ Ulcerations Neck: Supple, elevated JVP, Negative Carotid Bruits Lungs: Air entry fairly diminished in bilateral lung bases. Bilateral coarse crepitations Cardiovascular: Sinus rhythm, normal S1, Normal S2, No murmurs Abdomen: Bowel Sounds Present, Soft, Non Tender, abdominal distention possible ascites : No renal angle tenderness. No suprapubic tenderness. Extremities: Bilateral LE, 3+ pitting edema, Capillary Refill Less than 3 Seconds Skin: No rashes, No breakdown Musculoskeletal: No Tenderness to Palpation of Joints or Extremities Neurological: Cranial nerves II-XII grossly intact, Deep Tendon Reflexes 2+/4 and Symmetrical, Neuro grossly intact Psych/Mental Status: Anxious, restless - Physical Exam Vitals/I&O's: Vital Signs Temp Pulse Resp BP Pulse Ox 99.0 F 55 L 16 90/57 L 92 07/13/20 08:26 07/13/20 10:55 07/13/20 10:55 07/13/20 10:55 07/13/20 10:55 Oxygen Flow Rate (L/min) 2 Oxygen Delivery Method Nasal Cannula Weight: 266 lb 12.149 oz Body Mass Index (BMI) 43.0 Finger Stick Blood Glucose 102 Laboratory Results 07/13/20 08:40: WBC Cancelled, Corrected WBC Cancelled, RBC Cancelled, Hgb Cancelled, Hct Cancelled, MCV Cancelled, MCH Cancelled, MCHC Cancelled, RDW Std Deviation Cancelled, RDW Coeff of Amarilys Cancelled, Plt Count Cancelled, MPV Cancelled, Immature Gran % (Auto) Cancelled, Neut % (Auto) Cancelled, Lymph % (Auto) Cancelled, Ocean % (Auto) Cancelled, Eos % (Auto) Cancelled, Baso % (Auto) Cancelled, Absolute Neuts (auto) Cancelled, Absolute Lymphs (auto) Cancelled, Total Counted Cancelled, Neutrophils % (Manual) Cancelled, Band Neutrophils % Cancelled, Lymphocytes % (Manual) Cancelled, Monocytes % (Manual) Cancelled, Eosinophils % (Manual) Cancelled, Basophils % (Manual) Cancelled, Metamyelocytes % Cancelled, Myelocytes % Cancelled, Promyelocytes % Cancelled, Blast Cells % Cancelled, Plasma Cell % (Manual) Cancelled, Other Cells % Cancelled, Nucleated RBC % Cancelled, Nucleated RBCs/100 WBC Cancelled, Differential Comment Cancelled, Diff Path Review Cancelled, Hypersegmented Neuts Cancelled, Atypical Lymphocytes Cancelled, Reactive Lymphocytes Cancelled, Smudge Cells Cancelled, Toxic Granulation Cancelled, Toxic Vacuolation Cancelled, Dohle Bodies Cancelled, Pratik Rods Cancelled, Platelet Estimate Cancelled, Plt Morphology Comment Cancelled, RBC Morphology Cancelled, Polychromasia Cancelled, Hypochromasia Cancelled, Poikilocytosis Cancelled, Basophilic Stippling Cancelled, Anisocytosis Cancelled, Microcytosis Cancelled, Macrocytosis Cancelled, Spherocytes Cancelled, Sickle Cells Cancelled, Target Cells Cancelled , Tear Drop Cells Cancelled, Ovalocytes Cancelled, Stomatocytes Cancelled, [place] Bodies Cancelled, [place] Cells Cancelled, Bite Cells Cancelled, Crenated Cell Cancelled, Acanthocytes (Spur) Cancelled, Rouleaux Cancelled, Schistocytes Cancelled 07/13/20 08:40: Sodium 132 L, Potassium 5.0, Chloride 99, Carbon Dioxide 26.0, Anion Gap 7, BUN 9, Creatinine 1.02, Estim Creat Clear Calc 46.67, Est GFR (MDRD) Af Amer 68, Est GFR (MDRD) Non-Af 57 L, BUN/Creatinine Ratio 8.8 L, Glucose 201 H, Calcium 8.7, Troponin I < 0.015 07/13/20 09:10: D-Dimer Quant (PE/DVT) 1.25 H* 07/13/20 09:21: WBC 10.1, RBC 4.13 L, Hgb 12.2, Hct 38.7, MCV 93.7, MCH 29.5, MCHC 31.5 L, RDW Std Deviation 54.9 H, RDW Coeff of Amarilys 15.8 H, Plt Count 256, MPV 9.5, Immature Gran % (Auto) 0.900, Neut % (Auto) 80.0 H, Lymph % (Auto) 10.8 L, [place] % (Auto) 6.7, Eos % (Auto) 1.3, Baso % (Auto) 0.3, Absolute Neuts (auto) 8.1 H, Absolute Lymphs (auto) 1.09, Nucleated RBC % 0 07/13/20 09:21: B-Natriuretic Peptide 231.7 H Current Medications Sodium Chloride () 500 mls @ 999 mls/hr IV .Q31M [place] Stop: 07/13/20 12:15 Assessment/Plan All Active Problems Acute heart failure (Acute) Right pulmonary embolus (Acute) Anasarca (Acute) The patient is a 70 year old F with multiple comorbidities as listed above came to ER for shortness of breath and chest pain. In ED, she was found to have right middle lobe subsegmental PE, bilateral small effusion with underlying bibasilar atelectasis and a small pericardial effusion. 1. Anasarca with new onset heart failure probably acute on chronic heart failure: Patient is being admitted in PCU. Started on Lasix 20 mg IV then Lasix drip as her blood pressure was in systolic 90s. Discontinue IV fluid. Serial troponin enzymes rule out ACS. 2D echo tomorrow a.m. Heart failure core measures including intake and output, fluid restriction less than 1500 mL, daily weight monitoring, kidney and electrolytes monitoring. CT chest shows bilateral small pleural effusion and small pericardial effusion 2. Right middle lobe subsegmental pulmonary embolism: Patient had therapeutic dose of Lovenox at home. Started on Eliquis 10 mg twice daily, starter package. BNP elevated. Troponin negative. Rest as mentioned above 3. Atypical chest pain possible due to PE: Serial troponins administered. Twelve-lead EKG shows normal sinus rhythm [address]-T abnormality, QTC 441 ms. She has mild T inversion V1 to V3. Previous EKG which showed sinus tachycardia 115 bpm with T inversion 1-lead V1. First troponin negative 4. Diabetes mellitus type 2: Accu-Cheks before meals and at bedtime and cover with Humalog sliding scale. Hold Metformin. 5. Hypertension: In ED patient was hypotensive probably due to antihypertensive medications she took last night and/CHF exacerbation. Hold antihypertensive medications patient on lisinopril and amlodipine and atenolol Other chronic comorbidities include spondylosis of lumbosacral spine with degenerative disc, bipolar disorder and bilateral sacroiliitis, anxiety and depression: On high dose of Seroquel 600 mg daily at night; will decrease to 400 daily and try to taper as tolerated by patient. Patient also on escitalopram tramadol, tizanidine and buspirone. Living will/advanced directive/end of life care: Patient does not have living will or advanced directive. After discussion of benefits/risks procedures involved with full code, DNR CC arrest and DNR CC, the patient opted for full code. Patient does want artificial life support including intubation, tube feed, ventilator and/chest compression, central venous catheter, vasopressor and DC shock if needed Total time spent in [id number] encounter in discussion of advanced directive 16 minutes. Laboratory Results 07/13/20 08:40: Sodium 132 L, Potassium 5.0, Chloride 99, Carbon Dioxide 26.0, Anion Gap 7, BUN 9, Creatinine 1.02, Estim Creat Clear Calc 46.67, Est GFR (MDRD) Af Amer 68, Est GFR (MDRD) Non-Af 57 L, BUN/Creatinine Ratio 8.8 L, Glucose 201 H, Calcium 8.7, Troponin I < 0.015 07/13/20 09:10: D-Dimer Quant (PE/DVT) 1.25 H* 07/13/20 09:21: WBC 10.1, RBC 4.13 L, Hgb 12.2, Hct 38.7, MCV 93.7, MCH 29.5, MCHC 31.5 L, RDW Std Deviation 54.9 H, RDW Coeff of Amarilys 15.8 H, Plt Count 256, MPV 9.5, Immature Gran % (Auto) 0.900, Neut % (Auto) 80.0 H, Lymph % (Auto) 10.8 L, [place] % (Auto) 6.7, Eos % (Auto) 1.3, Baso % (Auto) 0.3, Absolute Neuts (auto) 8.1 H, Absolute Lymphs (auto) 1.09, Nucleated RBC % 0 07/13/20 09:21: B-Natriuretic Peptide 231.7 H Clinical Impression(s) from Imaging Studies Chest X-Ray 07/13/20 08:46 IMPRESSION: Moderate congestive heart failure. Electronically Signed: Enrike Cary MD at 9:51 EDT Tel , Service support , Chest CTA 07/13/20 10:02 IMPRESSION: 1. Positive for subsegmental pulmonary embolism in the right middle lobe. 2. Small bilateral pleural effusions with some bibasilar atelectasis. 3. Small pericardial effusion. Inpatient E&M: 22979 Init Hosp L3 Procedures: 63310 Advncd Care Plan 30 Min
[2020-07-13] MEDS: Enoxaparin 120 MG/0.8 ML Syringe SC (11:54)
[2020-07-13] MEDS: Furosemide 500 MG in Empty Viaflex 50 mL 1 EACH CONT INF (13:33)
[2020-07-13] MEDS: 0.9% Saline Lock 10 ML Syringe IV (13:33)
[2020-07-13 13:39] LABS: Magnesium 2.3 mg/dL (1.6-2.6)
[2020-07-13] MEDS: Glucerna Shake 120 ML LIQUID PO (13:40)
--- NOTE | 2020-07-13 14:05 | EKG12_ITS ---
Test Reason : Blood Pressure : / mmHG Vent. Rate : 065 BPM Atrial Rate : 065 BPM P-R Int : 130 ms QRS Dur : 082 ms QT Int : 454 ms P-R-T Axes : 061 076 070 degrees QTc Int : 472 ms Normal sinus rhythm Low voltage QRS Nonspecific ST abnormality Abnormal ECG When compared with ECG of 13-JUL-2020 08:47, MANUAL COMPARISON REQUIRED, DATA IS UNCONFIRMED Confirmed by JANIE GAFFNEY, BRANDI ([id number]), primer expeditor and drier JANA SCHMITZ ([id number]) on 07/16/2020 1:23:07 PM Referred By: RUIZ Confirmed By:BRANDI LIMA MD
[2020-07-13] MEDS: traMADol 50 MG Tablet PO ×2 (15:44→21:21)
[2020-07-13] MEDS: Gabapentin 600 MG Tablet PO ×2 (16:16→21:15)
[2020-07-13 17:30] LABS: Bedside Glucose 194 mg/dL (70-110)
[2020-07-13] MEDS: QUEtiapine 100 MG Tablet 400 MG PO (21:14)
[2020-07-13] MEDS: APIXABAN 5 MG TABLET 10 MG PO (21:14)
[2020-07-13] MEDS: busPIRone 5 MG Tablet 10 MG PO (21:14)
[2020-07-13] MEDS: Escitalopram Oxalate 10 MG Tablet PO (21:16)
[2020-07-13 21:36] LABS: Bedside Glucose 146 mg/dL (70-110)
[2020-07-14] VITALS (9 sets, daily range): BP systolic 105–129; BP diastolic 49–66; PULSE 69–84; RESP 16–20; TEMP 36.1–36.7; O2SAT 93–94
[2020-07-14 05:18] LABS: Absolute Lymphocyte Count 1.28 X10^3/uL (0.83-4.51); Absolute Neutrophil Count 6.3 X10^3/uL (2.0-7.7); Basophil# 0.03 X10^3/uL; Basophil% 0.3 % (0-1); Eosinophils% 3.5 % (0-5); Hematocrit 37.9 % (37-47); Hemoglobin 11.9 g/dL (12.0-15.0); Lymphocyte # 1.28 X10^3/ul (4.0); Lymphocyte % 14.9 % (19-41); Mean Corp Hgb Conc 31.4 g/dL (32-36); Mean Corpuscular Volume 92.2 fL (81-99); Mean Platelet Vol. 9.4 fl (6.2-12.0); Monocyte# 0.63 X10^3/uL; Monocyte% 7.3 % (0-10); NRBC Flagged by Analyzer 0 % (0-5); Neutrophil # 6.26 X10^3/uL (2.7-7.7); Neutrophil % 73.1 % (47-70); Platelet Count 268 K/mm3 (150-450); RBC Distribution Width CV 15.8 % (11.6-14.6); RBC Distribution Width SD 53.1 fl (35.1-43.9); Red Blood Count 4.11 M/mm3 (4.2-5.4); White Blood Count 8.6 K/mm3 (4.4-11.0)
[2020-07-14 05:43] LABS: Anion Gap 5 (5-15); BUN 9 mg/dL (7-18); BUN/Creat Ratio 11.5 RATIO (10-20); Calcium,Total 8.5 mg/dL (8.5-10.1); Chloride 96 mmol/L (98-107); Cholesterol 190 mg/dL (200); Creatinine, Serum 0.79 mg/dL (0.55-1.02); EST Glomerular Filtration Rate 76 mL/min (>60); Est Glom Filt Rate - Afr Amer 92 mL/min (>60); Glucose 125 mg/dL (74-106); High Density Lipoprotein 32 mg/dL; Potassium 3.4 mmol/L (3.5-5.1); Sodium Level 135 mmol/L (136-145); Thyroid Stim Hormone (TSH) 2.85 uIU/mL (0.358-3.74); Triglycerides 169 mg/dL; Very Low Density Lipoprotein 34 mg/dL (5-40)
--- NOTE | 2020-07-14 05:55 | ECHOD_ITS ---
Reason For Study: PE Procedure This was a 2D Doppler, Color Flow transthoracic echocardiogram. Exam performed portable in patient room. Left Ventricle Normal LV size. Left ventricular systolic function is normal. The estimated ejection fraction is 60 %. Stage 1 diastolic dysfunction. No regional wall motion abnormalities noted. Right Ventricle Normal RV size. Normal systolic function. Atria Normal left atrium. Normal right atrium. Mitral Valve Normal mitral valve. Mild (1+) eccentric mitral valve insufficiency. Tricuspid Valve Normal tricuspid valve. Mild tricuspid valve insufficiency. Pulmonary artery systolic pressure is 36 mmHg. Aortic Valve Trisinus/trileaflet aortic valve. Pulmonic Valve The pulmonic valve is not well visualized. Great Vessels Normal aortic root. Pericardium/Pleural Small pericardial effusion. There are no echocardiographic indications of cardiac tamponade. MMode/2D Measurements & Calculations LVIDd: 5.2 cm IVSd: 0.96 cm LA dimension: 4.7 cm LVIDs: 3.8 cm LVPWd: 1.1 cm FS: 26.7 % LAV(MOD-bp): 60.1 ml LA A4 area: 18.6 cm2 RA A4 area: 17.0 cm2 LAV(MOD-bp) Indexed: 27.3 ml/m2 LAV(MOD-sp2): 61.8 ml LAV(MOD-sp4): 56.2 ml Time Measurements MV dec time: 0.22 sec Doppler Measurements & Calculations MV E max doron: 94.9 cm/sec Lat Peak E' Doron: 8.4 cm/sec Med Peak E' Doron: 7.4 cm/sec MV A max doron: 107.3 cm/sec E/E' lat: 11.3 E/E' med: 12.9 MV E/A: 0.88 MV V2 max: 120.4 cm/sec MV P1/2t max doron: 103.0 cm/sec Ao V2 max: 178.6 cm/sec MV max P.8 mmHg MV P1/2t: 101.7 msec Ao max P.8 mmHg MV V2 mean: 67.0 cm/sec MV dec slope: 296.8 cm/sec2 MV mean P.1 mmHg MVA(P1/2t): 2.2 cm2 MV V2 VTI: 36.7 cm LV V1 max: 140.0 cm/sec PA V2 max: 129.0 cm/sec TR max doron: 290.0 cm/sec LV V1 max P.8 mmHg TR max P.6 mmHg ECHO/Echo Complete Interpretation Summary Normal LV size. Left ventricular systolic function is normal. The estimated ejection fraction is 60 %. Stage 1 diastolic dysfunction. Small pericardial effusion. There are no echocardiographic indications of cardiac tamponade. Ordering Physician: Ronny Velasquez Referring Physician: Broderick Mi Performed By: Michael Rios RCS
[2020-07-14] MEDS: Gabapentin 600 MG Tablet PO ×4 (08:47→21:41)
[2020-07-14] MEDS: Multivitamins,Therapeutic Tablet 1 TABLET PO (08:47)
[2020-07-14] MEDS: prednisoLONE eye drops (5 mL) 1 DROP OPTH.BTL 1 DRP OPHTHALMIC (08:48)
[2020-07-14] MEDS: APIXABAN 5 MG TABLET 10 MG PO ×2 (08:48→21:40)
[2020-07-14] MEDS: traMADol 50 MG Tablet PO ×2 (08:48→21:44)
[2020-07-14] MEDS: Bisacodyl 5 MG Tablet PO (08:48)
[2020-07-14] MEDS: busPIRone 5 MG Tablet 10 MG PO ×2 (08:48→21:40)
[2020-07-14] MEDS: Glucerna Shake 120 ML LIQUID PO (08:50)
--- NOTE | 2020-07-14 10:40 | CASEMGMT ---
RN CM Face to Face with patient for initial transition planning/care coordination assessment. RN CM introduced self and role at [facility]. Patient sitting in chair, alert and oriented. Patient willing to participate in assessment and is able to answer all questions appropriately. Care providers, pharmacy, and demographics verified. Patient wishes to discharge home, denies need for home health at this time. Patient states she has no further needs or concerns at this time. CM to follow for discharge planning needs that may arise. PCP: [facility] Specialists: [place], pain; [place] psychiatrist Preferred Pharmacy: [facility] Insurance: [facility] Prescription Benefit: yes Living Will/HPOA: none LNOK: son Living Arrangements: Patient lives with son in a 2 story home, patient is independent and able to ambulate stairs. Transportation: [facility] transport or taxi DME/HHC: patient states she has cane and grab bar at home. Patient states she has had [facility] HHC in the past. Will monitor for need for home oxygen at discharge. Disposition Plan: Patient to discharge home with family support and follow-up plans in place. Nicole SHARP, RN, CM
[2020-07-14 11:05] LABS: Bedside Glucose 203 mg/dL (70-110)
[2020-07-14] MEDS: Furosemide 500 MG in Empty Viaflex 50 mL 1 EACH CONT INF (13:17)
--- NOTE | 2020-07-14 14:01 | NURSING ---
Lasix drip at 07/14/20 at 1300 so new bag scanned and started taking 07/15/20 dose.
--- NOTE | 2020-07-14 14:52 | PCM.PN.HOSP ---
Patient Problems: Active and Suspected Problems Acute heart failure (Acute) Right pulmonary embolus (Acute) Anasarca (Acute) Subjective: breathing well currently. States that she has put on roughly 100# in past 1-2 years. Vitals/I&O's: Vital Signs Temp Pulse Resp BP Pulse Ox 36.7 C 84 18 127/54 H 94 07/14/20 14:30 07/14/20 14:30 07/14/20 14:30 07/14/20 14:30 07/14/20 14:30 Oxygen Flow Rate (L/min) 3 Oxygen Delivery Method Nasal Cannula Weight: 114.3 kg Body Mass Index (BMI) 42.7 Finger Stick Blood Glucose 102 Intake and Output for Last 24 Hours 07/12/20 07/13/20 07/14/20 23:59 23:59 23:59 Intake Total 540 / 550.45 623.73 / 623.73 Output Total 628 / 628 3200 / 3200 Balance -88 / -77.55 -2576.27 / -2576.27 General: Alert, No apparent distress HEENT: Atraumatic, Normocephalic Neck: No Nodes, Thyroid Normal Size and Texture Lungs: Normal air movement, - - bibasilar crackles Cardiovascular: Regular rate, Regular Rhythm, Normal S1, Normal S2, No murmurs Abdomen: Bowel Sounds Present, Soft, Non Tender, Non-Distended, No Hepato-splenomegaly Extremities: No Calf Tenderness, Edema Skin: No rashes, No breakdown Musculoskeletal: No Tenderness to Palpation of Joints or Extremities, No Muscle Wasting Psych/Mental Status: Normal Affect, Appropriate Laboratory Results 07/13/20 16:08: Troponin I < 0.015 07/13/20 17:24: POC Glucose 194 H 07/13/20 18:55: Troponin I < 0.015 07/13/20 21:25: POC Glucose 146 H 07/14/20 04:58: WBC 8.6, RBC 4.11 L, Hgb 11.9 L, Hct 37.9, MCV 92.2, MCH 29.0, MCHC 31.4 L, RDW Std Deviation 53.1 H, RDW Coeff of Amarilys 15.8 H, Plt Count 268, MPV 9.4, Immature Gran % (Auto) 0.900, Neut % (Auto) 73.1 H, Lymph % (Auto) 14.9 L, [place] % (Auto) 7.3, Eos % (Auto) 3.5, Baso % (Auto) 0.3, Absolute Neuts (auto) 6.3, Absolute Lymphs (auto) 1.28, Nucleated RBC % 0 07/14/20 04:58: Sodium 135 L, Potassium 3.4 L, Chloride 96 L, Carbon Dioxide 34.0 H, Anion Gap 5, BUN 9, Creatinine 0.79, Estim Creat Clear Calc 47.60, Est GFR (MDRD) Af Amer 92, Est GFR (MDRD) Non-Af 76, BUN/Creatinine Ratio 11.5, Glucose 125 H, Calcium 8.5, Triglycerides 169, Cholesterol 190, LDL Cholesterol 124, VLDL Cholesterol 34, HDL Cholesterol 32 L, TSH 2.85 07/14/20 11:00: POC Glucose 203 H Current Medications Acetaminophen (Acetaminophen 325 Mg Tablet) 650 mg PO Q6H PRN PRN PRN Reason: Pain Score 1-10/Temp > 100.7 F Al Hydroxide/Mg Hydroxide (Mag Hydrox/Al Hydrox/Simeth 30 Ml Udc) 30 ml PO Q6H PRN PRN PRN Reason: Gastric Burning Apixaban (Apixaban 5 Mg Tablet) 10 mg PO BID [facility]; Taper Stop: 01/16/21 21:59 Last Admin: 07/14/20 08:48 Dose: 10 mg Documented by: Bisacodyl (Bisacodyl 5 Mg Tablet) 5 mg PO DAILY [facility] Last Admin: 07/14/20 08:48 Dose: 5 mg Documented by: Buspirone HCl (Buspirone 5 Mg Tablet) 10 mg PO BID [facility] Last Admin: 07/14/20 08:48 Dose: 10 mg Documented by: Escitalopram Oxalate (Escitalopram Oxalate 10 Mg Tablet) 10 mg PO QHS [facility] Last Admin: 07/13/20 21:16 Dose: 10 mg Documented by: Gabapentin (Gabapentin 600 Mg Tablet) 600 mg PO 4X/DAYCM [facility] Last Admin: 07/14/20 11:44 Dose: 600 mg Documented by: Furosemide 500 mg/ N/A 50 mls @ 1 mls/hr CONT INF .Q50H [facility] Last Admin: 07/14/20 13:17 Dose: 10 mg/hr, 1 mls/hr Documented by: Sodium Chloride () 500 mls @ 15 mls/hr IV PRN PRN PRN Reason: Blood Transfusion Sodium Chloride () 250 mls @ 15 mls/hr IV .[id number] PRN PRN Reason: Saline Flush Sodium Chloride () 250 mls @ 15 mls/hr IV .[id number] PRN PRN Reason: Additional IVPB Infusion Loratadine (Loratadine 10 Mg Tablet) 10 mg PO QODAY [facility] Multivitamins ([facility],Therapeutic Tablet) [facility] Last Admin: 07/14/20 08:47 Dose: 1 tablet Documented by: Nitroglycerin (Nitroglycerin (Inpatient Use) 0.4 Mg Tab.Subl) 0.4 mg SL Q5M PRN PRN Reason: CARDIAC/CHEST PAIN Prednisolone Acetate (Prednisolone Eye Drops (5 Ml) 1 Drop Opth.Btl) 1 drp OPHTHALMIC DAILY [facility] Last Admin: 07/14/20 08:48 Dose: 5 ml Documented by: Prochlorperazine Edisylate (Prochlorperazine 10 Mg/2 Ml Vial) 5 mg IV Q4H PRN PRN PRN Reason: Breakthrough Nausea/Vomiting Quetiapine Fumarate (Quetiapine 100 Mg Tablet) 400 mg PO QHS [facility] Last Admin: 07/13/20 21:14 Dose: 400 mg Documented by: Senna/Docusate Sodium (Senna/Docusate Sodium 1 Tablet) 2 tablet PO BID PRN PRN PRN Reason: Constipation Sodium Chloride (0.9% Saline Lock 10 Ml Syringe) 10 - 40 ml IV UD PRN PRN Reason: SALINE FLUSH Last Admin: 07/13/20 13:33 Dose: 10 ml Documented by: Tizanidine HCl (Tizanidine Hcl 2 Mg Tablet) 4 mg PO BID PRN PRN Reason: muscle pain Tramadol HCl (Tramadol 50 Mg Tablet) 50 mg PO BID [facility] Last Admin: 07/14/20 08:48 Dose: 50 mg Documented by: STROKE Vital Signs/Narrative: Vital Signs Temp Pulse Resp BP Pulse Ox 07/14/20 14:30 36.7 C 84 18 127/54 H 94 Medical Necessity - Tobacco Use Smoking Status: Current every day smoker Tobacco Use: Cigarettes Assessment/Plan All Active Problems Acute heart failure (Acute) Right pulmonary embolus (Acute) Anasarca (Acute) 1. acute PE unprovoked on apixaban treat for 6 months. consider hypercoagulable work up after completed anticoagulation 2. acute HFpEF echo shows EF 60% continue IV furosemide gtt (used in lieu of bolus given transient hypotension) thus far -2.6 L 3. chest pain atypical troponins negative likely 2/2 PE and CHF 4. DM2 fair control metformin held start SSI 5. VTE prophylaxis: not indicated as she is already anticoagulated Inpatient E&M: 86588 Subs Hosp L2
[2020-07-14 16:45] LABS: Bedside Glucose 139 mg/dL (70-110)
[2020-07-14] MEDS: QUEtiapine 100 MG Tablet 400 MG PO (21:41)
[2020-07-14] MEDS: Escitalopram Oxalate 10 MG Tablet PO (21:41)
[2020-07-14] MEDS: Senna/Docusate Sodium 1 Tablet 2 TABLET PO (21:42)
[2020-07-14 21:50] LABS: Bedside Glucose 152 mg/dL (70-110)
[2020-07-15] VITALS (12 sets, daily range): BP systolic 106–126; BP diastolic 51–81; PULSE 82–100; RESP 18–20; TEMP 36.6–37.4; O2SAT 88–97
[2020-07-15 06:35] LABS: Bedside Glucose 147 mg/dL (70-110)
[2020-07-15 07:06] LABS: Absolute Lymphocyte Count 1.33 X10^3/uL (0.83-4.51); Absolute Neutrophil Count 5.4 X10^3/uL (2.0-7.7); Basophil# 0.04 X10^3/uL; Basophil% 0.5 % (0-1); Eosinophil# 0.26 X10^3/uL; Eosinophils% 3.4 % (0-5); Hematocrit 41.7 % (37-47); Hemoglobin 13.3 g/dL (12.0-15.0); Lymphocyte # 1.33 X10^3/ul (4.0); Lymphocyte % 17.3 % (19-41); Mean Corp Hgb Conc 31.9 g/dL (32-36); Mean Corpuscular Hgb 29.4 pg (27.0-32.0); Mean Corpuscular Volume 92.3 fL (81-99); Monocyte# 0.63 X10^3/uL; Monocyte% 8.2 % (0-10); NRBC Flagged by Analyzer 0 % (0-5); Neutrophil # 5.37 X10^3/uL (2.7-7.7); Neutrophil % 69.6 % (47-70); Platelet Count 307 K/mm3 (150-450); RBC Distribution Width CV 15.5 % (11.6-14.6); RBC Distribution Width SD 52.2 fl (35.1-43.9); Red Blood Count 4.52 M/mm3 (4.2-5.4); White Blood Count 7.7 K/mm3 (4.4-11.0)
[2020-07-15 07:30] LABS: Anion Gap 5 (5-15); BUN 15 mg/dL (7-18); BUN/Creat Ratio 19.1 RATIO (10-20); Calcium,Total 8.7 mg/dL (8.5-10.1); Chloride 91 mmol/L (98-107); Creatinine, Serum 0.79 mg/dL (0.55-1.02); EST Glomerular Filtration Rate 76 mL/min (>60); Est Glom Filt Rate - Afr Amer 92 mL/min (>60); Glucose 129 mg/dL (74-106); Potassium 3.2 mmol/L (3.5-5.1); Sodium Level 134 mmol/L (136-145)
[2020-07-15] MEDS: Multivitamins,Therapeutic Tablet 1 TABLET PO ×2 (08:23)
[2020-07-15] MEDS: 0.9% Saline Lock 10 ML Syringe IV (08:23)
[2020-07-15] MEDS: Loratadine 10 MG Tablet PO (08:24)
[2020-07-15] MEDS: Gabapentin 600 MG Tablet PO ×3 (08:24→16:55)
[2020-07-15] MEDS: Furosemide 40 MG Tablet PO ×2 (08:24→16:55)
[2020-07-15] MEDS: busPIRone 5 MG Tablet 10 MG PO (08:24)
[2020-07-15] MEDS: Bisacodyl 5 MG Tablet PO (08:25)
[2020-07-15] MEDS: prednisoLONE eye drops (5 mL) 1 DROP OPTH.BTL 1 DRP OPHTHALMIC (08:25)
[2020-07-15] MEDS: traMADol 50 MG Tablet PO (08:25)
[2020-07-15] MEDS: Senna/Docusate Sodium 1 Tablet 2 TABLET PO (08:31)
[2020-07-15] MEDS: APIXABAN 5 MG TABLET 10 MG PO (10:39)
[2020-07-15] MEDS: Insulin Lispro 100 UNIT/ML INSULN.PEN SC (11:25)
[2020-07-15 11:31] LABS: Bedside Glucose 178 mg/dL (70-110)
[2020-07-15] MEDS: Potassium Chloride Oral Tablet 20 MEQ 40 MEQ PO (13:16)
--- NOTE | 2020-07-15 13:50 | CASEMGMT ---
Addendum entered by Nicole Corbett 07/15/20 15:44: Call from [employer] and they state they are no longer in network for DME and Medical service company is who is preferred. Referral faxed to [facility] and corporate and call to notify of referral, voice understanding. Message left with [facility] regarding pt/referral. Mundo, PCU charge, updated on all and provided contact info for [facility] as well as referral left with her at this time. Angelika BOGGS CM Addendum entered by Nicole Corbett 07/15/20 15:08: This RN CM back to room and pt chooses [employer] for DME company and in order: [facility], [facility], and [place] [facility] for C agency. Referral faxed to [facility] and [employer]. Call to [employer] to notify of referral, voices understanding. CM to follow. Angelika BOGGS CM Original Note: Pt does qualify for 2L nc at rest and with ambulation. This RN CM to room to discuss discharge plan with pt. Pt provided with a list DME/HHC providers including quality and resource use data and consistent with the pt's preferred geographic region, medical needs, and insurance network. Pt states would like SN, PT/OT and aide set up. CM to follow. Angelika BOGGS CM
--- NOTE | 2020-07-15 15:26 | DCINST_ITS ---
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) Degeneration of intervertebral disc of lumbosacral region (Chronic) Acute heart failure (Acute) Right pulmonary embolus (Acute) Anasarca (Acute) Bipolar disorder (Chronic) HTN (hypertension) (Chronic) Diabetes (Chronic) You will use the following diet at home:: Regular, Fluid restricted (specify 2000 mls, 1500 mls) - 1500 ml/day Your food should be the consistency of: Regular Your liquids should be the consistency of: Regular/Thin Call your doctor if you observe: Shortness of breath Instructions: DVT/PE Discharge instruction sheet, Understanding Pulmonary Embolism, Taking Medication to Control Heart Failure, What Is Heart Failure?, Heart Failure: Warning Signs of a Flare-Up, Heart Failure: Tracking Your Weight, Taking Medications for Your Heart Additional Instructions: Weigh yourself daily and keep a registry. Notify physician if you put on 2 pounds in 1 day or 3 pounds in 1 week. Allergies/Adverse Reactions: Allergies hydrocodone Adverse Reaction (Verified 07/13/20 08:25) Other oxycodone HCl [From Percocet] Adverse Reaction (Verified 07/13/20 08:25) Other Medications to take at Discharge traMADol [Ultram] 50 mg PO BID 07/02/14 Bisacodyl [Dulcolax] 5 mg PO DAILY 10/21/14 Docusate Sodium [Colace] 100 mg PO BID 12/14/17 Escitalopram Oxalate [Lexapro] 10 mg PO QHS 12/14/17 Lisinopril [Prinivil] 5 mg PO LUNCH 12/14/17 Quetiapine Fumarate [Seroquel] 600 mg PO QHS 12/14/17 Tizanidine HCl 4 mg PO BID 12/14/17 Gabapentin [Neurontin] 600 mg PO 4X/DAY 09/04/18 Cetirizine HCl [Zyrtec] 10 mg PO QODAY 03/16/19 Multivitamin [Daily Multiple Vitamin] 1 ea PO DAILY 03/16/19 Prednisolone Acetate/Pf [Prednisolone Acet 1% Eye Drop] 1 drp OP DAILY 03/16/19 Buspirone HCl 10 mg PO BID 05/14/20 Apixaban [Eliquis] 10 mg PO BID #70 tablet 07/15/20 Atenolol [Tenormin (beta branden)] 25 mg PO QHS #30 tablet 07/15/20 Furosemide [Lasix] 40 mg PO DAILY #30 tablet 07/15/20 metFORMIN HCl [Glucophage] 500 mg PO BIDCM #0 07/15/20 The following prescriptions were given: Apixaban [Eliquis] 10 mg PO BID #70 tablet Transmission Status: Pending to [facility] Furosemide [Lasix] 40 mg PO DAILY #30 tablet Transmission Status: Pending to [facility] Atenolol [Tenormin (beta branden)] 25 mg PO QHS #30 tablet Transmission Status: Pending to [facility] Primary Care Physician: Broderick Mi DO [Primary Care Provider] - Within 2 Weeks Test Results: Test results from this visit will be discussed in further detail at your follow- up appointment, if applicable. Please Follow Up With: [facility] When: 2-4 weeks Proposed Discharge Date: 07/15/20
--- NOTE | 2020-07-15 15:30 | PCM.DC.SUM ---
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 Electronically Signed: Enrike Cary MD at 9:51 EDT Tel , Service support , Chest CTA 07/13/20 10:02 IMPRESSION: 1. Positive for subsegmental pulmonary embolism in the right middle lobe. 2. Small bilateral pleural effusions with some bibasilar atelectasis. 3. Small pericardial effusion. Electronically Signed: Enrike Cary MD at 11:03 EDT Tel , Service support , Echocardiogram 07/14/20 05:55 Interpretation Summary Normal LV size. Left ventricular systolic function is normal. The estimated ejection fraction is 60 %. Stage 1 diastolic dysfunction. Small pericardial effusion. There are no echocardiographic indications of cardiac tamponade. Ordering Physician: Ronny Velasquez Referring Physician: Broderick Mi Performed By: Michael Rios RCS Operations: None Procedures: 2-D Echocardiogram Summary of Care Provided: The patient is a 70 year old F presents with shortness of breath. Patient was found to have a right-sided pulmonary embolism but also CHF. 2D echocardiogram showed an EF of 60% with small pericardial effusion without tamponade. Patient was started on apixaban for the pulmonary embolism to which she will continue for 6 months. Patient may be considered for hypercoagulable evaluation afterwards to see if she would need an extended period of anticoagulation. Patient was also diuresed with furosemide and overall her output was -4 L and weight is down roughly 8 kg during this admission. Patient still requiring oxygen and on 2 L nasal cannula at rest and with activity. This is likely due to the pulmonary embolism as from heart failure standpoint patient is doing better. Patient will continue with 40 mg of furosemide daily with concomitant potassium replacement. Patient will continue with apixaban 10mg twice daily for 5 more days complete a 7-day course and then 5 mg twice daily for the remainder of the 6 months. Patient will be discharged home in stable condition. Patient does require oxygen as mentioned above patient expresses that she loves to smoke and that it is only thing that gives her ender. Talked with her extensively that she cannot smoke while on oxygen. She states that she will take the oxygen off in order to smoke. She has no desire to quit smoking at this time. [] Patient Problems: Active and Suspected Problems Acute heart failure (Acute) Right pulmonary embolus (Acute) Anasarca (Acute) - Physical Exam Vitals/I&O's: Vital Signs Temp Pulse Resp BP Pulse Ox 36.9 C 96 20 H 126/73 H 97 07/15/20 14:31 07/15/20 14:31 07/15/20 14:31 07/15/20 14:31 07/15/20 14:31 Oxygen Flow Rate (L/min) [ 2 AMBULATING with Oxygen #1] Oxygen Flow Rate (L/min) [At 0 REST on Room Air] Oxygen Flow Rate (L/min) 2 Oxygen Delivery Method Nasal Cannula Weight: 112.5 kg Body Mass Index (BMI) 42.7 Finger Stick Blood Glucose 102 Intake and Output for Last 24 Hours 07/13/20 07/14/20 07/15/20 23:59 23:59 23:59 Intake Total 540 / 550.45 978.45 / 978.45 14.58 / 14.58 Output Total 628 / 628 4400 / 4400 500 / 500 Balance -88 / -77.55 -3421.55 / -3421.55 -485.42 / -485.42 General: Alert, No apparent distress HEENT: Atraumatic, Normocephalic Neck: No Nodes, Thyroid Normal Size and Texture Lungs: Clear to auscultation, Normal air movement, No rhonchi, No wheeze, No rales Cardiovascular: Regular rate, Regular Rhythm, Normal S1, Normal S2 Psych/Mental Status: Normal Affect, Appropriate Laboratory Results 07/14/20 16:38: POC Glucose 139 H 07/14/20 21:39: POC Glucose 152 H 07/15/20 06:15: WBC 7.7, RBC 4.52, Hgb 13.3, Hct 41.7, MCV 92.3, MCH 29.4, MCHC 31.9 L, RDW Std Deviation 52.2 H, RDW Coeff of Amarilys 15.5 H, Plt Count 307, MPV 9.0, Immature Gran % (Auto) 1.000 H, Neut % (Auto) 69.6, Lymph % (Auto) 17.3 L, [place] % (Auto) 8.2, Eos % (Auto) 3.4, Baso % (Auto) 0.5, Absolute Neuts (auto) 5.4, Absolute Lymphs (auto) 1.33, Nucleated RBC % 0 07/15/20 06:15: Sodium 134 L, Potassium 3.2 L, Chloride 91 L, Carbon Dioxide 38.0 H, Anion Gap 5, BUN 15, Creatinine 0.79, Estim Creat Clear Calc 47.60, Est GFR (MDRD) Af Amer 92, Est GFR (MDRD) Non-Af 76, BUN/Creatinine Ratio 19.1, Glucose 129 H, Calcium 8.7 07/15/20 06:31: POC Glucose 147 H 07/15/20 11:23: POC Glucose 178 H Current Medications Acetaminophen (Acetaminophen 325 Mg Tablet) 650 mg PO Q6H PRN PRN PRN Reason: Pain Score 1-10/Temp > 100.7 F Al Hydroxide/Mg Hydroxide (Mag Hydrox/Al Hydrox/Simeth 30 Ml Udc) 30 ml PO Q6H PRN PRN PRN Reason: Gastric Burning Apixaban (Apixaban 5 Mg Tablet) 10 mg PO BID [facility]; Taper Stop: 01/16/21 21:59 Last Admin: 07/15/20 10:39 Dose: 10 mg Documented by: Bisacodyl (Bisacodyl 5 Mg Tablet) 5 mg PO DAILY [facility] Last Admin: 07/15/20 08:25 Dose: 5 mg Documented by: Buspirone HCl (Buspirone 5 Mg Tablet) 10 mg PO BID [facility] Last Admin: 07/15/20 08:24 Dose: 10 mg Documented by: Dextrose (Dextrose 50%-Water 25 Gm/50 Ml Disp.Syrin) 0 gm IV X1 PRN; Protocol PRN Reason: Hypoglycemia Escitalopram Oxalate (Escitalopram Oxalate 10 Mg Tablet) 10 mg PO QHS [facility] Last Admin: 07/14/20 21:41 Dose: 10 mg Documented by: Furosemide (Furosemide 40 Mg Tablet) 40 mg PO BID@1000,1800 [facility] Last Admin: 07/15/20 08:24 Dose: 40 mg Documented by: Gabapentin (Gabapentin 600 Mg Tablet) 600 mg PO 4X/DAYCM [facility] Last Admin: 07/15/20 11:26 Dose: 600 mg Documented by: Glucagon (Glucagon 1 Mg/Ml Syringe) 1 mg IM .X1 PRN PRN Reason: Hypoglycemia Sodium Chloride () 500 mls @ 15 mls/hr IV PRN PRN PRN Reason: Blood Transfusion Sodium Chloride () 250 mls @ 15 mls/hr IV .[id number] PRN PRN Reason: Saline Flush Sodium Chloride () 250 mls @ 15 mls/hr IV .[id number] PRN PRN Reason: Additional IVPB Infusion Insulin Human Lispro (Insulin Lispro 100 Unit/Ml Insuln.Pen) 0 unit SC TIDAC [facility]; Protocol Last Admin: 07/15/20 11:25 Dose: 1 u Documented by: Loratadine (Loratadine 10 Mg Tablet) 10 mg PO QODAY [facility] Last Admin: 07/15/20 08:24 Dose: 10 mg Documented by: Multivitamins ([facility]itamins,Therapeutic Tablet) [facility] Last Admin: 07/15/20 08:23 Dose: 1 tablet Documented by: Nitroglycerin (Nitroglycerin (Inpatient Use) 0.4 Mg Tab.Subl) 0.4 mg SL Q5M PRN PRN Reason: CARDIAC/CHEST PAIN Prednisolone Acetate (Prednisolone Eye Drops (5 Ml) 1 Drop Opth.Btl) 1 drp OPHTHALMIC DAILY [facility] Last Admin: 07/15/20 08:25 Dose: 1 ml Documented by: Prochlorperazine Edisylate (Prochlorperazine 10 Mg/2 Ml Vial) 5 mg IV Q4H PRN PRN PRN Reason: Breakthrough Nausea/Vomiting Quetiapine Fumarate (Quetiapine 100 Mg Tablet) 400 mg PO QHS [facility] Last Admin: 07/14/20 21:41 Dose: 400 mg Documented by: Senna/Docusate Sodium (Senna/Docusate Sodium 1 Tablet) 2 tablet PO BID PRN PRN PRN Reason: Constipation Last Admin: 07/15/20 08:31 Dose: 2 tablet Documented by: Sodium Chloride (0.9% Saline Lock 10 Ml Syringe) 10 - 40 ml IV UD PRN PRN Reason: SALINE FLUSH Last Admin: 07/15/20 08:23 Dose: 10 ml Documented by: Tizanidine HCl (Tizanidine Hcl 2 Mg Tablet) 4 mg PO BID PRN PRN Reason: muscle pain Tramadol HCl (Tramadol 50 Mg Tablet) 50 mg PO BID [facility] Last Admin: 07/15/20 08:25 Dose: 50 mg Documented by: Discharge Diet: 2000 mg Sodium Diet Call your doctor if you observe: Shortness of breath Home Medications: Medications to take at Discharge traMADol [Ultram] 50 mg PO BID 07/02/14 Bisacodyl [Dulcolax] 5 mg PO DAILY 10/21/14 Docusate Sodium [Colace] 100 mg PO BID 12/14/17 Escitalopram Oxalate [Lexapro] 10 mg PO QHS 12/14/17 Lisinopril [Prinivil] 5 mg PO LUNCH 12/14/17 Quetiapine Fumarate [Seroquel] 600 mg PO QHS 12/14/17 Tizanidine HCl 4 mg PO BID 12/14/17 Gabapentin [Neurontin] 600 mg PO 4X/DAY 09/04/18 Cetirizine HCl [Zyrtec] 10 mg PO QODAY 03/16/19 Multivitamin [Daily Multiple Vitamin] 1 ea PO DAILY 03/16/19 Prednisolone Acetate/Pf [Prednisolone Acet 1% Eye Drop] 1 drp OP DAILY 03/16/19 Buspirone HCl 10 mg PO BID 05/14/20 Apixaban [Eliquis] 10 mg PO BID #70 tablet 07/15/20 Atenolol [Tenormin (beta branden)] 25 mg PO QHS #30 tablet 07/15/20 Furosemide [Lasix] 40 mg PO DAILY #30 tablet 07/15/20 metFORMIN HCl [Glucophage] 500 mg PO BIDCM #0 07/15/20 Following Prescriptions Were Given to Patient: Apixaban [Eliquis] 10 mg PO BID #70 tablet Transmission Status: Pending to [facility] Furosemide [Lasix] 40 mg PO DAILY #30 tablet Transmission Status: Pending to [facility] Atenolol [Tenormin (beta branden)] 25 mg PO QHS #30 tablet Transmission Status: Pending to [facility] Primary Care Physician: Broderick Mi DO [Primary Care Provider] - Within 2 Weeks Please Follow Up With: [facility] When: 2-4 weeks Patient Instructions: DVT/PE Discharge instruction sheet, Understanding Pulmonary Embolism, Taking Medication to Control Heart Failure, What Is Heart Failure?, Heart Failure: Warning Signs of a Flare-Up, Heart Failure: Tracking Your Weight, Taking Medications for Your Heart Disposition: Home with Home Health Minutes spent on discharge:: 32 Patient Condition:: Fair Medical Necessity - Tobacco Use Smoking Status: Current every day smoker Tobacco Use: Cigarettes Meaningful Use Info Meaningful Use Diagnoses (Choose all that apply): CHF - CHF HOMER/ARB ordered at discharge?: Yes Documented LVEF (%): 60 Inpatient E&M: [id number] Disch Hosp
--- NOTE | 2020-07-15 16:05 | PHA.DC.MC ---
Pharmacy Service has performed discharge medication reconciliation and counseling for this patient. 1. APIXABAN 10MG PO BID X 5 DAYS, THEN 5MG BID THEREAFTER FOR 6 MONTHS 2. FUROSEMIDE 40MG PO DAILY The patient's discharge medication list was reviewed for discrepancies and discrepancies were resolved. Patient was adamant that her insurance does not allow her to fill at [facility] Retail pharmacy. This [facility] called and spoke with retail. All 3 prescriptions went through insurance and there is no co-pay. Patient was notified [facility] retail took insurance and there is no co-pay. Patient voiced understanding and is okay with the prescriptions being filled here. Would like them delivered to her room. This [facility] called retail pharmacy and asked for [id number] delivery. Home Medications traMADol [Ultram] 50 mg PO BID 07/02/14 Bisacodyl [Dulcolax] 5 mg PO DAILY 10/21/14 Docusate Sodium [Colace] 100 mg PO BID 12/14/17 Escitalopram Oxalate [Lexapro] 10 mg PO QHS 12/14/17 Lisinopril [Prinivil] 5 mg PO LUNCH 12/14/17 Quetiapine Fumarate [Seroquel] 600 mg PO QHS 12/14/17 Tizanidine HCl 4 mg PO BID 12/14/17 Gabapentin [Neurontin] 600 mg PO 4X/DAY 09/04/18 Cetirizine HCl [Zyrtec] 10 mg PO QODAY 03/16/19 Multivitamin [Daily Multiple Vitamin] 1 ea PO DAILY 03/16/19 Prednisolone Acetate/Pf [Prednisolone Acet 1% Eye Drop] 1 drp OP DAILY 03/16/19 Buspirone HCl 10 mg PO BID 05/14/20 Apixaban [Eliquis] 10 mg PO BID #70 tablet 07/15/20 Atenolol [Tenormin (beta branden)] 25 mg PO QHS #30 tablet 07/15/20 Furosemide [Lasix] 40 mg PO DAILY #30 tablet 07/15/20 metFORMIN HCl [Glucophage] 500 mg PO BIDCM #0 07/15/20 The patient was counseled on the following discharge medications and changes in medications for homegoing were reviewed. The Reason for Use, instructions for use, and potential side effects were reviewed for all new medications. The patient's questions regarding all of their medications were answered. The patient was able to verbally demonstrate an understanding of their discharge medications.
[2020-07-15 16:16] LABS: Bedside Glucose 131 mg/dL (70-110)
--- NOTE | 2020-07-16 09:57 | CASEMGMT ---
Addendum entered by Nicole Corbett 07/16/20 10:08: D/C summ/instructions faxed to [facility]. Angelika BOGGS CM Original Note: Message from Abril at [facility] and she states they are able to accept pt and will do start of care on 07/17/20. Angelika BOGGS CM
== END 2020-07-15 19:31 | disposition home or self-care (01) | DRG 194 ==
LOC: ED 09:45 → PCU 12:28
PROVIDERS: Admitting Provider Internal Medicine; Emergency Provider Student in an Organized Health Care Education/Training Program; PCP Preventive Medicine Occupational Medicine
DX: I11.0 Hypertensive heart disease with heart failure (principal); I50.31 Acute diastolic (congestive) heart failure; I26.93 Single subsegmental thrombotic pulmonary embolism without acute cor pulmonale; I31.3 Pericardial effusion (noninflammatory); J98.11 Atelectasis; I95.2 Hypotension due to drugs; T46.5X5A Adverse effect of other antihypertensive drugs, initial encounter; Y92.9 Unspecified place or not applicable; E11.9 Type 2 diabetes mellitus without complications; J90 Pleural effusion, not elsewhere classified; F31.9 Bipolar disorder, unspecified; F41.9 Anxiety disorder, unspecified; M46.1 Sacroiliitis, not elsewhere classified; M51.37 Other intervertebral disc degeneration, lumbosacral region; M47.817 Spondylosis without myelopathy or radiculopathy, lumbosacral region; G47.00 Insomnia, unspecified; Z79.899 Other long term (current) drug therapy; F17.210 Nicotine dependence, cigarettes, uncomplicated; Z79.84 Long term (current) use of oral hypoglycemic drugs
CPT/HCPCS: 36415; 71045; 71275; 80048; 80061; 82962; 83735; 83880; 84443; 84484; 85025; 85379; 93005; 93306; 97110; 97162; 97166; 97530; 97535; 97802; 99251; 99285; 99406; J7040; Q9957; Q9967; A4216; G0463; J1940

== ENCOUNTER 2020-09-22 08:23 | Day surgery (SDC) | payer MEDICAID, SELFPAY ==
[2020-08-22 15:02] VITALS: BMI 40.0
[2020-09-22 09:50] VITALS: BP 83/67; PULSE 65; RESP 16; TEMP 36.4; O2SAT 97; BMI 42.9
[2020-09-22 10:10] LABS: Bedside Glucose 98 mg/dL (70-110)
--- NOTE | 2020-09-22 10:13 | RAD_ITS ---
PROCEDURE: Caudal epidural injection DATE OF EXAMINATION: 09/22/2020 INDICATION: Female, 70 years old. Chronic low back pain. FLUOROSCOPY TIME (if supplied): (12 seconds) minutes/seconds. 2 images were obtained. RAD/Fluor Guidance for Spine Inj IMPRESSION: Intraoperative imaging provided for caudal epidural. Electronically Signed: Dwight Cleary MD at 11:01 EDT , Service support ,
[2020-09-22] MEDS: Bupivacaine 0.25% 30 ML Vial (10:23)
[2020-09-22] MEDS: MethylPREDNISolone Acetate 80 MG/ML Vial (10:23)
[2020-09-22] MEDS: Lidocaine 1% (5 ml sdv) 5 ML Vial (10:23)
[2020-09-22] MEDS: 0.9% Normal Saline (Pres. free 10 ML Vial (10:23)
--- NOTE | 2020-09-22 16:28 | OP.PCM_ITS ---
Report of Operation Date of Procedure: 09/22/20 Pre-Operative Diagnosis: Lumbosacral radiculopathy, lumbosacral degenerative di sc disease, lumbosacral spinal stenosis Post-Operative Diagnosis: Lumbosacral radiculopathy, lumbosacral degenerative disc disease, lumbosacral spinal stenosis Surgery/Procedure Performed:: Caudal epidural steroid injection under fluoroscopic guidance Type of Anesthesia: MAC and None Estimated Blood Loss (mL): Minimal Description of Procedure: DESCRIPTION OF PROCEDURE: History and physical of today was reviewed. Risks and benefits of the procedure were explained. The patient understood and agreed to proceed. Informed consent was obtained. IV inserted per routine protocol. The patient was taken to the operating room and placed in the prone position with a pillow positioned underneath the abdomen. The lower back and tailbone area was prepped and draped in a sterile fashion using iodine x3. Under fluoros copy guidance on a lateral view, the caudal space was identified. The skin and subcutaneous tissue was anesthetized with approximately 3 mL of 1% lidocaine using a 25-gauge regular needle. Under direct visualization with fluoroscopy, using a 22-gauge 3-1/2-inch spinal needle, the needle was advanced via the skin through the sacral hiatus. The tip of the needle was passed through the sacrococcygeal ligament and advanced to approximately S4 area. After negative aspiration of blood or CSF, a total of 3 mL of contrast was injected to confirm correct placement of the needle as well as cephalad spread. The spread was followed to approximately L5 area. After confirmation on AP as well as lateral view and repeated negative aspiration, a total of 15 mL of preservative-free 0.125% Marcaine with 80 mg of Depo-Medrol was injected easily. The needle was then removed intact. The patient experienced no sign or symptoms of intrathecal or intravascular injection. The patient experienced no paresthesia. The procedure was completed without any apparent difficulty or any complications. The patient appeared to tolerate it well. ASSESSMENT AND PLAN: This is a 70-year-old female with lumbosacral radiculopathy, lumbosacral degenerative disc disease, lumbosacral spinal stenosis status post caudal epidural steroid injection, patient will continue her current medications, patient will follow in approximately 2 weeks for reevaluation. Complications None
== END 2020-09-22 11:10 | disposition home or self-care (01) ==
LOC: SDC 08:23 → AC 09:11
PROVIDERS: PCP Preventive Medicine Occupational Medicine; Referring Provider Anesthesiology Pain Medicine; Visit Provider Anesthesiology Pain Medicine
PROC: 3E0S3BZ Introduction of Anesthetic Agent into Epidural Space, Percutaneous Approach (ICD-10-PCS; CPT 62282; principal; 2020-09-22 10:35)
DX: M47.27 Other spondylosis with radiculopathy, lumbosacral region (principal); M51.17 Intervertebral disc disorders with radiculopathy, lumbosacral region; M48.07 Spinal stenosis, lumbosacral region; M48.061 Spinal stenosis, lumbar region without neurogenic claudication; M51.16 Intervertebral disc disorders with radiculopathy, lumbar region; M46.96 Unspecified inflammatory spondylopathy, lumbar region; E11.9 Type 2 diabetes mellitus without complications; E78.5 Hyperlipidemia, unspecified; I10 Essential (primary) hypertension; F20.9 Schizophrenia, unspecified; M19.90 Unspecified osteoarthritis, unspecified site; F31.9 Bipolar disorder, unspecified; F41.9 Anxiety disorder, unspecified; G43.909 Migraine, unspecified, not intractable, without status migrainosus; Z91.5 Personal history of self-harm; Z79.01 Long term (current) use of anticoagulants; Z79.84 Long term (current) use of oral hypoglycemic drugs; Z79.899 Other long term (current) drug therapy; Z87.891 Personal history of nicotine dependence; Z86.711 Personal history of pulmonary embolism
CPT/HCPCS: 01992; 62323; 64483; 77003; 82962; J7120; J3490

== ENCOUNTER 2020-11-13 18:55 | Emergency (ER) | payer MEDICAID, SELFPAY ==
[2020-11-13] VITALS (8 sets, daily range): BP systolic 64–126; BP diastolic 37–74; PULSE 55–81; RESP 10–18; TEMP 36.3; O2SAT 95–98; BMI 44.0
--- NOTE | 2020-11-13 19:08 | ED.RN ---
CALLED FOR EKG PER RN REQUEST, PULLED OLD EKGS FOR
--- NOTE | 2020-11-13 19:15 | EKG12_ITS ---
Test Reason : CP Blood Pressure : / mmHG Vent. Rate : 054 BPM Atrial Rate : 054 BPM P-R Int : 156 ms QRS Dur : 092 ms QT Int : 484 ms P-R-T Axes : 060 041 073 degrees QTc Int : 458 ms Sinus bradycardia Low voltage QRS Nonspecific T wave abnormality Abnormal ECG Confirmed by PERRY GAFFNEY, FOREST ([id number]), electronic news gathering editor JANA SCHMITZ ([id number]) on 11/18/2020 8:46:00 AM Referred By: SAMAN Confirmed By:FOREST AMADOR MD
--- NOTE | 2020-11-13 19:17 | RAD_ITS ---
INDICATION: chest pain EXAMINATION/TECHNIQUE: X-RAY - XR Chest 1 View COMPARISON: 07/13/2020. FINDINGS: Chronic lung changes. Tortuous and calcified thoracic aorta. The heart is mildly enlarged. No pleural effusion or pneumothorax. Degenerative changes of the thoracic spine. RAD/Chest 1 View (Portable) IMPRESSION: No acute radiographic abnormalities. Electronically Signed: Dwaine Lisa MD at 19:47 EDT Tel , Service support ,
[2020-11-13 19:23] LABS: Absolute Lymphocyte Count 1.96 X10^3/uL (0.83-4.51); Basophil# 0.05 X10^3/uL; Basophil% 0.6 % (0-1); Eosinophil# 0.23 X10^3/uL; Eosinophils% 2.6 % (0-5); Hematocrit 32.4 % (37-47); Hemoglobin 10.4 g/dL (12.0-15.0); Lymphocyte # 1.96 X10^3/ul (0.83-4.51); Mean Corp Hgb Conc 32.1 g/dL (32-36); Mean Corpuscular Hgb 30.6 pg (27.0-32.0); Mean Corpuscular Volume 95.3 fL (81-99); Mean Platelet Vol. 10.3 fl (6.2-12.0); Monocyte# 0.55 X10^3/uL; Monocyte% 6.2 % (0-10); NRBC Flagged by Analyzer 0 % (0-5); Neutrophil # 6.01 X10^3/uL (2.7-7.7); Neutrophil % 67.5 % (47-70); Platelet Count 260 K/mm3 (150-450); RBC Distribution Width CV 14.7 % (11.6-14.6); RBC Distribution Width SD 51.3 fl (35.1-43.9); White Blood Count 8.9 K/mm3 (4.4-11.0)
--- NOTE | 2020-11-13 19:26 | CT_ITS ---
EXAMINATION : Head CT w/out contrast HISTORY : fall, on eliquis COMPARISON : None. TECHNIQUE : Multiple contiguous axial images were obtained from the skull base to the vertex without intravenous contrast. A radiation dose optimization technique was used for this scan. FINDINGS : There is no evidence for acute intracranial hemorrhage, mass effect, or midline shift. There is no extra-axial fluid collection. There are periventricular white matter changes consistent with chronic microvascular ischemic disease. There is sulcal widening and ventricular enlargement consistent with cerebral atrophy. There is normal castillo-white differentiation, without CT evidence of acute ischemia or infarct. The skull base and calvarium are unremarkable. The orbits are unremarkable. The paranasal sinuses are clear. The mastoid air cells are well-aerated. The soft tissues are unremarkable. CT/Brain/Head without Contrast IMPRESSION: No acute intracranial abnormality. Chronic involutional and ischemic changes of the brain. Electronically Signed: Dwaine Lisa MD at 20:11 EDT Tel , Service support ,
--- NOTE | 2020-11-13 19:28 | EX.ED.DYSGE1 ---
HPI History of Present Illness Chief Complaint: Chest Pain Informant: patient and family Onset/Context/Timing Onset: Today Current Severity: Mild Maximum Severity: Mild Narrative Narrative: Patient presents via EMS secondary to chest pain. EMS was called secondary to a fall at home. Patient states she had taken her bedtime medication and then gone to the restroom. She tripped on the rug and fell backwards. Her son called EMS who noted her to be hypotensive and bradycardic. She was, however, alert and oriented x3. She is her own power of city attorney and refused transport. I spoke with the patient on the phone. She was aware and alert and able to make her own decisions. Patient stated that her blood pressure and heart rate were always low after taking her bedtime medications. EMS states that while they were filling out the paperwork to have her sign off without transport she then changed her mind and decided that she would come in because of some chest wall pain after her fall. [facility] Medical History (HFpEF) heart failure with preserved ejection fraction (07/13/20) Anasarca Bilateral sacroiliitis Bipolar disorder Degeneration of intervertebral disc of lumbosacral region Diabetes Essential (primary) hypertension History of pulmonary embolus (PE) (07/13/20) Hyperlipidemia Nicotine dependence Pericardial effusion without cardiac tamponade (07/13/20) Sacrococcygeal disorders, not elsewhere classified Spondylosis of lumbosacral region without myelopathy or radiculopathy Home Medications tramadol 50 mg PO BID 07/02/14 [History Last Taken 05/19/20] docusate sodium [DOK] 100 mg PO BID 12/14/17 [History Last Taken 01/06/20] escitalopram oxalate 10 mg PO QHS 12/14/17 [History Last Taken 01/06/20] quetiapine [Seroquel] 600 mg PO QHS 12/14/17 [History Last Taken 01/06/20] tizanidine 4 mg PO BID 12/14/17 [History Last Taken 01/06/20] gabapentin [Neurontin] 600 mg PO 4X/DAY 09/04/18 [History Last Taken 01/06/20] cetirizine 10 mg PO QODAY 03/16/19 [History Last Taken 01/06/20] multivitamin 1 ea PO DAILY 03/16/19 [History Last Taken 01/06/20] prednisolone acetate (PF) 1 drp OP DAILY 03/16/19 [History Last Taken 01/06/20] metformin 500 mg PO BIDCM #0 07/15/20 [Rx Last Taken 01/06/20] lisinopril 5 mg tablet 5 mg PO LUNCH #30 tab 08/12/20 [Rx Last Taken Unknown] bisacodyl 5 mg tablet,delayed release 10 mg PO DAILY tab 08/22/20 [History Last Taken Unknown] buspirone 10 mg tablet 10 mg PO TID PRN tab 08/22/20 [History Last Taken Unknown] apixaban 5 mg tablet 5 mg PO BID #60 tab 09/08/20 [Rx Last Taken Unknown] furosemide 40 mg tablet 40 mg PO DAILY #90 tab 09/08/20 [Rx Last Taken Unknown] atenolol 50 mg tablet 50 mg PO BID 09/11/20 [History Last Taken Unknown] lidocaine [Lidoderm] 1 patch TOPICAL DAILY #6 ea 11/13/20 [Rx Last Taken Unknown] Allergy/AdvReac Type Severity Reaction Status Date / Time hydrocodone AdvReac Other Verified 11/13/20 19:13 oxycodone HCl [From Percocet] AdvReac Other Verified 11/13/20 19:13 Surgical History History of cataract surgery History of knee replacement History of lumbar surgery History of tubal ligation Social History Smoking Status: Former smoker ROS ROS ED Constitutional Constitutional ED: Denies chills or fever(s) Eyes Eyes: Denies change in vision ENT ENT ED: Denies sore throat Cardiovascular Cardiovascular: Reports chest pain; Denies palpitations or racing heartbeat Respiratory/Chest Respiratory/Chest: Denies cough or dyspnea Gastrointestinal Gastrointestinal: Denies abdominal pain, diarrhea, nausea or vomiting Genitourinary Genitourinary ED: Denies dysuria Musculoskeletal Musculoskeletal: Denies back pain Integumentary Denies rash Neurologic Neurologic: Denies headache(s) or weakness Psychiatric Psychiatric: Denies anxiety or depression Allergic/Immunologic Allergic/Immunologic ED: Denies urticaria EXAM Physical Exam Const Vital Signs: 11/13/20 18:57 11/13/20 19:13 11/13/20 19:16 Temperature 97.3 F L Temperature Source Temporal Pulse Rate 55 L Respiratory Rate 16 Respiratory Effort Normal Non-Labored Blood Pressure 64/37 L Blood Pressure Mean 46 Pulse Ox 96 98 Oxygen Delivery Method Room Air Room Air 11/13/20 19:34 11/13/20 20:00 11/13/20 21:00 Temperature Temperature Source Pulse Rate 64 73 Respiratory Rate 18 12 Respiratory Effort Blood Pressure 85/47 L 99/50 L 108/59 L Blood Pressure Mean 59 66 75 Pulse Ox 95 96 Oxygen Delivery Method Room Air Room Air 11/13/20 22:00 Temperature Temperature Source Pulse Rate 72 Respiratory Rate 10 L Respiratory Effort Blood Pressure 101/61 Blood Pressure Mean 74 Pulse Ox 96 Oxygen Delivery Method Room Air Positive well nourished and well developed General Appearance ED: well developed HEENT Reports normocephalic and head/scalp atraumatic Eyes PERRL and EOMs intact bilaterally Neck supple Chest Wall inspection of chest normal Chest Narrative: Chest wall pain along the upper sternum. No overlying abrasions or ecchymosis. Resp normal respiratory effort and clear to auscultation bilaterally Cardio regular rhythm Rate: bradycardia GI normal to inspection, nondistended, normoactive bowel sounds and non-tender Palpation: soft Extremity normal to inspection Neuro oriented x3 Neuro Narrative: No focal neurologic deficits. Sensorium / Orientation: alert Psych mental status grossly normal Skin no rashes or lesions noted MDM MDM MDM Narrative Medical decision making narrative: Patient is given IV fluids. EKG, labs, chest x-ray, head CT obtained. Lab Data Attestation: I reviewed the patient's lab results. Labs: Laboratory Results - last 24 hr 11/13/20 11/13/20 18:45 18:45 WBC 8.9 RBC 3.40 L Hgb 10.4 L Hct 32.4 L MCV 95.3 MCH 30.6 MCHC 32.1 RDW Std Deviation 51.3 H RDW Coeff of Amarilys 14.7 H Plt Count 260 MPV 10.3 Immature Gran % (Auto) 1.100 H Neut % (Auto) 67.5 Lymph % (Auto) 22.0 [place] % (Auto) 6.2 Eos % (Auto) 2.6 Baso % (Auto) 0.6 Absolute Neuts (auto) 6.0 Absolute Lymphs (auto) 1.96 Nucleated RBC % 0 Sodium 135 L Potassium 4.1 Chloride 101 Carbon Dioxide 25.0 Anion Gap 9 BUN 14 Creatinine 1.17 H Estim Creat Clear Calc 35.95 Est GFR (MDRD) Af Amer 58 L Est GFR (MDRD) Non-Af 48 L BUN/Creatinine Ratio 12.0 Glucose 167 H Calcium 8.6 Troponin I High Sens 5.0 Radiography Chest X-Ray - ED: 1 View, Read by ED Physician and Chronic Changes Diagnostic Testing: Radiology Impression Chest X-Ray 11/13/20 19:17 IMPRESSION: No acute radiographic abnormalities. Electronically Signed: Dwaine Lisa MD at 19:47 EDT Tel , Service support , Brain CT 11/13/20 19:26 IMPRESSION: No acute intracranial abnormality. Chronic involutional and ischemic changes of the brain. Electronically Signed: Dwaine Lisa MD at 20:11 EDT Tel , Service support , EKG Initial EKG: Attestation: I personally reviewed and interpreted this EKG as follows: Interpretation: Sinus Bradycardia (Sinus bradycardia 54 bpm. No acute ischemia.) Treatment and Re-Evaluation Comments:: At this time patient's cardiac work-up is unremarkable. She has reproducible chest wall pain after a fall. After 2 L of IV fluid blood pressure is improved and is currently 123/76 with a heart rate of 73. Patient be given Tylenol and a Lidoderm patch. Patient's son does raise concern that she may be taking too much of her bedtime medicine. I did ask him to check her pill bottles to see if she is running out of the medication early. At this time she will be discharged home with family. Discharge Plan Triage Chief Complaint: Chest Pain ED Provider: Yasmeen Quinn Dx/Rx/DC Orders Clinical Impression: Transient hypotension, Chest wall contusion Instructions: ED Chest Wall Contusion, ED Low Blood Pressure, All Causes Prescriptions: New lidocaine [Lidoderm] 5 % adhesive patch,medicated 1 patch topical DAILY Qty: 6 RF: 0 No Action tramadol 50 MG tablet 50 mg PO BID RF: 0 bisacodyl 5 mg tablet,delayed release (DR/EC) 10 mg PO DAILY RF: 0 tizanidine 4 MG tablet 4 mg PO BID RF: 0 docusate sodium [DOK] 100 MG capsule 100 mg PO BID RF: 0 escitalopram oxalate 10 MG tablet 10 mg PO QHS RF: 0 quetiapine [Seroquel] 400 MG tablet 600 mg PO QHS RF: 0 gabapentin [Neurontin] 300 MG capsule 600 mg PO 4X/DAY RF: 0 multivitamin 1 EACH tablet 1 ea PO DAILY RF: 0 cetirizine 10 MG capsule 10 mg PO QODAY RF: 0 prednisolone acetate (PF) 5 ML drops,suspension 1 drp OP DAILY RF: 0 buspirone 10 mg tablet 10 mg PO TID PRNRF: 0 metformin 500 MG tablet 500 mg PO BIDCM Qty: 0 RF: 0 lisinopril 5 mg tablet 5 mg PO LUNCH Qty: 30 RF: 11 apixaban 5 mg tablet 5 mg PO BID Qty: 60 RF: 11 furosemide 40 mg tablet 40 mg PO DAILY Qty: 90 RF: 3 atenolol 50 mg tablet 50 mg PO BID RF: 0 Primary Care Provider: Broderick Mi Referrals: Broderick Mi DO [Primary Care Provider] - As soon as possible (Please follow-up with your primary care physician to have your heart rate and blood pressure rechecked.) Disposition Disposition: Home, Self Care
[2020-11-13] MEDS: 0.9% Normal Saline 1,000 ML 1000 ML IV (19:30)
[2020-11-13 19:37] LABS: Anion Gap 9 (5-15); BUN 14 mg/dL (7-18); Calcium,Total 8.6 mg/dL (8.5-10.1); Chloride 101 mmol/L (98-107); Creatinine, Serum 1.17 mg/dL (0.55-1.02); EST Glomerular Filtration Rate 48 mL/min (>60); Est Glom Filt Rate - Afr Amer 58 mL/min (>60); Estimated Creatinine Clearance 35.95 ml/min; Glucose 167 mg/dL (74-106); Potassium 4.1 mmol/L (3.5-5.1); Sodium Level 135 mmol/L (136-145)
[2020-11-13] MEDS: Acetaminophen 325 MG Tablet 650 MG PO (23:11)
[2020-11-13] MEDS: Lidocaine 5% Patch 1 PATCH TOPICAL (23:11)
[2020-11-13] MEDS: HYDROmorphone 0.5 MG/0.5 ML SYRINGE IM (23:44)
== END 2020-11-14 00:57 | disposition home or self-care (01) ==
PROVIDERS: Emergency Provider Emergency Medicine; PCP Preventive Medicine Occupational Medicine
DX: I95.9 Hypotension, unspecified (principal); S20.219A Contusion of unspecified front wall of thorax, initial encounter; W18.09XA Striking against other object with subsequent fall, initial encounter; Y93.9 Activity, unspecified; Y92.009 Unspecified place in unspecified non-institutional (private) residence as the place of occurrence of the external cause; E11.9 Type 2 diabetes mellitus without complications; E78.5 Hyperlipidemia, unspecified; F31.9 Bipolar disorder, unspecified; I11.0 Hypertensive heart disease with heart failure; I31.3 Pericardial effusion (noninflammatory); I50.32 Chronic diastolic (congestive) heart failure; Z86.711 Personal history of pulmonary embolism; Z79.01 Long term (current) use of anticoagulants; Z79.84 Long term (current) use of oral hypoglycemic drugs; Z79.899 Other long term (current) drug therapy; Z87.891 Personal history of nicotine dependence
CPT/HCPCS: 70450; 71045; 80048; 84484; 85025; 93005; 96360; 96372; 99285; J7030; P9612

== ENCOUNTER 2021-01-05 06:10 | Day surgery (SDC) | payer MEDICAID, SELFPAY ==
[2021-01-05 06:40] VITALS: BP 122/58; PULSE 52; RESP 16; TEMP 36.7; O2SAT 96; BMI 42.6
[2021-01-05] MEDS: Lactated Ringers 1,000 ML 100 ML IV (06:59)
[2021-01-05 07:11] LABS: Bedside Glucose 68 mg/dL (70-110)
--- NOTE | 2021-01-05 07:50 | RAD_ITS ---
STUDY: X-RAY - LUMBAR SPINE REASON FOR EXAM: Female, 70 years old. RADIO FREQ ABLATION, L3-S1, LEFT TECHNIQUE: 13 view(s) of the lumbar spine were obtained. COMPARISON: None FINDINGS: 13 images were submitted, as radiology support for c-arm imaging in the operating room. This is not a diagnostic examination. Images for documentation purposes only. Fluoroscopy time if reported: RAD/Lumbar Spine 2 or 3 Views IMPRESSION: Intraoperative fluoroscopic image guidance. Electronically Signed: Maria Teresa Clement MD at 7:40 EDT , Service support ,
[2021-01-05] MEDS: Lidocaine 1% (30 ml sdv) 30 ML Vial (07:55)
[2021-01-05] MEDS: Bupivacaine 0.25% 30 ML Vial (07:55)
[2021-01-05] MEDS: MethylPREDNISolone Acetate 40 MG/ML Vial IM (07:56)
[2021-01-05 08:13] VITALS: BP 105/69; BP 122/58; PULSE 58; RESP 18; TEMP 36.6; O2SAT 91
[2021-01-05 08:15] VITALS: BP 111/66; BP 122/58; PULSE 55; RESP 20; O2SAT 93
[2021-01-05 08:20] VITALS: BP 111/66; BP 122/58; PULSE 53; RESP 20; O2SAT 96
[2021-01-05 08:26] VITALS: BP 107/60; BP 122/58; PULSE 58; RESP 20; TEMP 36.2; O2SAT 98
[2021-01-05 09:02] VITALS: BP 122/58
--- NOTE | 2021-01-05 15:23 | PCM.OPRPT ---
Report of Operation Date of Procedure: 01/05/21 Pre-Operative Diagnosis: Lumbosacral spondylosis, lumbosacral degenerative disc disease, lumbar facet arthropathy Post-Operative Diagnosis: Lumbosacral spondylosis, lumbosacral degenerative disc disease, lumbar facet arthropathy Surgery/Procedure Performed:: Left-sided lumbar radiofrequency ablation of the medial branch L3, L4, L5, S1 Type of Anesthesia: MAC Estimated Blood Loss (mL): Minimal Description of Procedure: History and physical today was reviewed. Risks and benefits of procedure explained. The patient understood, agreed to the procedure and informed consent was obtained. IV inserted per routine protocol. The patient was taken to the operating room, placed in the prone position with a pillow positioned underneath the abdomen. The left side of the lower back was prepped and draped in a sterile fashion using iodine x 3. Under fluoroscopy guidance, on an oblique view, the L3 through S1 vertebral bodies were visualized. The skin and subcutaneous tissue was anesthetized with approximately 10 mL of 1% lidocaine using a 25-gauge regular needle. Under direct visualization with fluoroscopy at approximately 25-degree angle, starting on the left L3, ending on the left S1 passing through the L4-L5 using a 20-gauge 15 cm with a 10 mm curved active tip radiofrequency ablation needle the needle passed through the skin. The tip of the needle was maneuvered and directed towards the superior and medial gutter of the transverse process at the vicinity of the medial branch. Once the tip of the needle was in contact with the bone, the needle pulled approximately 2 mm up the bone. The stylet of each needle was then removed. After negative aspiration of blood with CSF and confirmation of AP as well as oblique view, radiofrequency ablation probe was then inserted at each level. Impedance was then recorded at L3 to be 252, at L4 295, at L5 275, at S1 300 ohm. Motor-evoked potential was then initiated to 1.5 volt without any motor response at each corresponding level. The probe was then removed intact and a total of 6 mL preservative-free 1% lidocaine was injected in divided doses between those 4 levels after negative aspiration of blood with CSF. The radiofrequency ablation probe was then reinserted after confirmation of AP, oblique as well as lateral view. Radiofrequency ablation was then initiated to 80 degrees Celsius for 90 seconds at each level. Once concluded, the probe was then removed intact and a total of 6 mL of preservative-free 0.25% Marcaine with 40 mg Depo-Medrol was injected in divided doses between those 4 levels. The needles were then removed intact. The patient experienced no signs or symptoms of intrathecal, intravascular injection. The patient experienced no paraesthesia. The procedure was completed without any apparent difficulty, any complication. The patient appeared to tolerate well. Sensory as well as motor exam was unchanged from prior to procedure. ASSESSMENT AND PLAN: This is a 70-year-old female with lumbosacral spondylosis, lumbosacral degenerative disc disease, lumbar facet arthropathy, status post left-sided lumbar radiofrequency ablation of the medial branch L3 through S1. The patient will continue her current medications. The patient will follow up in approximately 2 weeks for reevaluation. Complications None
== END 2021-01-05 09:03 ==
LOC: SDC 06:12 → AC 06:13
PROVIDERS: PCP Preventive Medicine Occupational Medicine; Referring Provider Anesthesiology Pain Medicine; Visit Provider Anesthesiology Pain Medicine
PROC: (CPT 64635; principal; 2021-01-05 07:45)
DX: M47.27 Other spondylosis with radiculopathy, lumbosacral region (principal); M51.17 Intervertebral disc disorders with radiculopathy, lumbosacral region; M48.061 Spinal stenosis, lumbar region without neurogenic claudication; M51.16 Intervertebral disc disorders with radiculopathy, lumbar region; M46.96 Unspecified inflammatory spondylopathy, lumbar region; I10 Essential (primary) hypertension; E11.9 Type 2 diabetes mellitus without complications; E78.5 Hyperlipidemia, unspecified; F20.9 Schizophrenia, unspecified; F31.9 Bipolar disorder, unspecified; F41.9 Anxiety disorder, unspecified; M19.90 Unspecified osteoarthritis, unspecified site; G43.909 Migraine, unspecified, not intractable, without status migrainosus; Z91.51 Personal history of suicidal behavior; Z86.711 Personal history of pulmonary embolism; Z79.84 Long term (current) use of oral hypoglycemic drugs; Z79.01 Long term (current) use of anticoagulants; Z79.899 Other long term (current) drug therapy; Z87.891 Personal history of nicotine dependence
CPT/HCPCS: 01992; 64635; 64636 ×2; 72100; 76000; 82962; J7120

== ENCOUNTER 2021-02-09 11:26 | Emergency (ER) | payer MEDICAID, SELFPAY ==
[2021-02-09 11:27] VITALS: BP 126/91; PULSE 58; RESP 18; TEMP 36.8; O2SAT 96; BMI 43.4
--- NOTE | 2021-02-09 13:19 | EX.ED.VIS.UR ---
HPI HPI - URI History of Present Illness Chief Complaint: Cold Sx Narrative Narrative: Patient presents with 4 to 5 days of upper respiratory infection/cold type symptoms. She states she has had runny nose, cough with sputum production, perhaps subjective fever, and body aches. She has received the COVID-19 immunizations. She denies any chest pain, leg swelling, or other symptoms but states that she has not felt well for the last 4 to 5 days, and feels as if it is getting worse. During the history and physical, she states she has had symptoms like this previously and requested antibiotics. ROS ROS ED ROS Narrative Constitutional: Subjective intermittent fever, no chills. HEENT: No sore throat. No neck pain. No loss of vision. Positive rhinorrhea. Positive nasal congestion. Cardiovascular: No chest pain. No palpitations. No pedal edema. Respiratory: Positive cough, occasional shortness of breath. Abdominal: No abdominal pain. No nausea. No vomiting. Genitourinary: No dysuria. No hematuria. Musculoskeletal: Positive myalgias. No arthralgias. Neurologic: No headaches. No dizziness. No lightheadedness. Skin: No rash. No change in color. Psychiatric: No depression. No anxiety. [facility] Medical History (HFpEF) heart failure with preserved ejection fraction (07/13/20) Anasarca Bilateral sacroiliitis Bipolar disorder Degeneration of intervertebral disc of lumbosacral region Diabetes Essential (primary) hypertension Fall History of pulmonary embolus (PE) (07/13/20) Hyperlipidemia Nicotine dependence Pericardial effusion without cardiac tamponade (07/13/20) Sacrococcygeal disorders, not elsewhere classified Spondylosis of lumbosacral region without myelopathy or radiculopathy Home Medications tramadol 50 mg PO BID 07/02/14 [History Last Taken 01/05/21] docusate sodium [DOK] 100 mg PO BID 12/14/17 [History Last Taken 01/06/20] escitalopram oxalate 10 mg PO QHS 12/14/17 [History Last Taken 01/06/20] quetiapine [Seroquel] 600 mg PO QHS 12/14/17 [History Last Taken 01/06/20] tizanidine 4 mg PO BID 12/14/17 [History Last Taken 01/06/20] gabapentin [Neurontin] 600 mg PO TID 09/04/18 [History Last Taken 01/06/20] cetirizine 10 mg PO QODAY 03/16/19 [History Last Taken 01/06/20] multivitamin 1 ea PO DAILY 03/16/19 [History Last Taken 01/06/20] prednisolone acetate (PF) 1 drp OP DAILY 03/16/19 [History Last Taken 01/06/20] metformin 500 mg PO BIDCM #0 07/15/20 [Rx Last Taken 01/06/20] lisinopril 5 mg tablet 5 mg PO LUNCH #30 tab 08/12/20 [Rx Last Taken Unknown] bisacodyl 5 mg tablet,delayed release 10 mg PO DAILY tab 08/22/20 [History Last Taken Unknown] buspirone 10 mg tablet 10 mg PO TID PRN tab 08/22/20 [History Last Taken Unknown] apixaban 5 mg tablet 5 mg PO BID #60 tab 09/08/20 [Rx Last Taken 01/03/21] furosemide 40 mg tablet 40 mg PO DAILY #90 tab 09/08/20 [Rx Last Taken Unknown] atenolol 50 mg tablet 50 mg PO BID 09/11/20 [History Last Taken 01/05/21] lidocaine [Lidoderm] 1 patch TOPICAL DAILY #6 ea 11/13/20 [Rx Last Taken Unknown] amlodipine 5 mg tablet 5 mg PO DAILY 12/23/20 [History Last Taken Unknown] escitalopram oxalate 10 mg tablet 10 mg PO QHS tab 01/06/21 [History Last Taken Unknown] Allergy/AdvReac Type Severity Reaction Status Date / Time [id number] Reductase AdvReac Intermediate constipatio Verified 02/09/21 11:30 Inhibitor n hydrocodone AdvReac Other Verified 02/09/21 11:30 oxycodone HCl [From Percocet] AdvReac Other Verified 02/09/21 11:30 Family History Mother Schizophrenia Sister Depression Sister Depression Surgical History Corneal transplant status History of cataract surgery History of knee replacement History of lumbar surgery History of tubal ligation Hx of tonsillectomy Social History household members: other details: lives with son Smoking Status: Former smoker Tobacco: How many years used: 54 alcohol intake: never substance use type: does not use caffeine: Yes Type: coffee Number of servings: 1 and tea seatbelt use: sometimes do you feel safe at home: Yes EXAM Physical Exam Narrative Exam Narrative: Afebrile. Vital signs noted. HEENT: Normocephalic. Atraumatic. PERRL, EOMI. Neck soft and supple. No point tenderness or step off. Mild nasal congestion. Cardiovascular: Regular rate and rhythm. No murmurs, rubs, or gallops appreciated. Respiratory: No tachypnea. Lungs clear to auscultation bilaterally. Gastrointestinal: Abdomen soft, nontender, with normoactive bowel sounds. No rebound or guarding. Neurological: Awake. Alert. Nonfocal, nonlateralizing. Skin: No rash. Normal color. No pallor. Musculoskeletal: No pedal edema. Full range of motion extremities. Const Vital Signs: 02/09/21 11:27 02/09/21 13:43 Temperature 98.2 F Temperature Source Temporal Pulse Rate 58 L Respiratory Rate 18 Respiratory Effort Normal Non-Labored Respiratory Depth Normal Respiratory Pattern Normal Blood Pressure 126/91 H Blood Pressure Mean 102 Pulse Ox 96 Oxygen Delivery Method Room Air MDM MDM MDM Narrative Medical decision making narrative: She is afebrile here. Pulse ox 96% on room air without evidence of hypoxia. Feel she has more upper respiratory infection type symptoms. Chest x-ray is obtained along with influenza swab and Covid swab. I had a discussion with the patient that antibiotics are not needed unless she has a pneumonia as the symptoms could be more viral in nature. She stated that the last time she had the cough and mild difficulty breathing she was prescribed an inhaler. Additionally, she states that she occasionally has a cigarette. Chest x-ray shows mild vascular congestion and cardiomegaly, but no infiltrate. Her swab is positive for COVID-19. I do not feel that she requires antibiotics. She will be given a prescription for an inhaler. She was ambulated in her room in the ED and did not have oxygen desaturation. At this point in time, I do not feel she requires admission. Treat will be symptomatic as an outpatient. She will follow up with her primary care physician. Return instructions to the emergency department were reviewed. Disposition is discharged home in stable condition. Lab Data Attestation: I reviewed the patient's lab results. Radiography Diagnostic Testing: Clinical Impression(s) from Imaging Studies Chest X-Ray 02/09/21 13:47 IMPRESSION: Mild degree of vascular congestion and cardiomegaly. Electronically Signed: Dwight Cleary MD at 14:12 EST , Service support , Discharge Plan Triage Chief Complaint: Cold Sx ED Provider: Mundo Mark Dx/Rx/DC Orders Prescriptions: No Action amlodipine 5 mg tablet 5 mg PO DAILY RF: 0 escitalopram oxalate [Lexapro] 10 mg tablet 10 mg PO QHS RF: 0 tramadol 50 MG tablet 50 mg PO BID RF: 0 bisacodyl 5 mg tablet,delayed release (DR/EC) 10 mg PO DAILY RF: 0 tizanidine 4 MG tablet 4 mg PO BID RF: 0 docusate sodium [DOK] 100 MG capsule 100 mg PO BID RF: 0 escitalopram oxalate 10 MG tablet 10 mg PO QHS RF: 0 quetiapine [Seroquel] 400 MG tablet 600 mg PO QHS RF: 0 gabapentin [Neurontin] 300 MG capsule 600 mg PO TID RF: 0 multivitamin 1 EACH tablet 1 ea PO DAILY RF: 0 cetirizine 10 MG capsule 10 mg PO QODAY RF: 0 prednisolone acetate (PF) 5 ML drops,suspension 1 drp OP DAILY RF: 0 buspirone 10 mg tablet 10 mg PO TID PRN (Reason: Anxiety) RF: 0 metformin 500 MG tablet 500 mg PO BIDCM Qty: 0 RF: 0 lidocaine [Lidoderm] 5 % adhesive patch,medicated 1 patch topical DAILY Qty: 6 RF: 0 lisinopril 5 mg tablet 5 mg PO LUNCH Qty: 30 RF: 11 apixaban 5 mg tablet 5 mg PO BID Qty: 60 RF: 11 furosemide 40 mg tablet 40 mg PO DAILY Qty: 90 RF: 3 atenolol 50 mg tablet 50 mg PO BID RF: 0 Primary Care Provider: Broderick Mi
--- NOTE | 2021-02-09 13:47 | RAD_ITS ---
STUDY: X-RAY CHEST REASON FOR EXAM: Female, 70 years old. Shortness of Breath . Lateral lower extremity edema. TECHNIQUE: Single AP portable view of the chest. COMPARISON: Comparison is made with prior study on 11/13/2020. FINDINGS: Mild degree of vascular congestion. There is no demonstrated pleural abnormality. There is mild cardiac enlargement. Normal mediastinum and julieth. Normal visualized pulmonary arteries. There is atherosclerotic calcification of the aortic arch with tortuosity. There are diffuse degenerative changes of the visualized thoracic spine. Normal visualized ribs, clavicles, and shoulders. There is no demonstrated abnormality of the visualized soft tissue structures of the upper abdomen. RAD/Chest 1 View (Portable) IMPRESSION: Mild degree of vascular congestion and cardiomegaly. Electronically Signed: Dwight Cleary MD at 14:12 EST , Service support ,
[2021-02-09 15:13] VITALS: BP 139/87; PULSE 91; RESP 22; O2SAT 96
--- NOTE | 2021-02-09 15:13 | ED.RN ---
THIS NURSE REVIEWED D/C INSTRUCTIONS WITH PT. PT VERBALIZED UNDERSTANDING OF INSTRUCTIONS. PT ASKING ABOUT INFUSION. DR MENDEZ NOTIFIED. REFERRAL FOR INFUSION ORDERED. PT INQUIRING IF THERE IS SOMEWHERE SHE CAN GO WHERE PEOPLE WILL TAKE CARE OF ME SINCE I HAVE COVID. MY SON IS CONCERNED HE WILL GET SICK. PT GIVEN THE OPTIONS FOR CARE. PT DENIES FURTHER NEEDS OR QUESTIONS AT THIS TIME
== END 2021-02-09 15:15 | disposition home or self-care (01) ==
PROVIDERS: Emergency Provider Emergency Medicine; PCP Preventive Medicine Occupational Medicine
DX: U07.1 COVID-19 (principal); I11.0 Hypertensive heart disease with heart failure; I50.9 Heart failure, unspecified; F31.9 Bipolar disorder, unspecified; E11.9 Type 2 diabetes mellitus without complications; E78.5 Hyperlipidemia, unspecified; M51.37 Other intervertebral disc degeneration, lumbosacral region; Z86.711 Personal history of pulmonary embolism; Z79.84 Long term (current) use of oral hypoglycemic drugs; Z79.01 Long term (current) use of anticoagulants; Z79.899 Other long term (current) drug therapy; Z87.891 Personal history of nicotine dependence
CPT/HCPCS: 71045; 87426; 87804; 99282

== ENCOUNTER 2021-02-11 13:59 | Outpatient (CLI) | payer MEDICAID, SELFPAY ==
[2021-02-11] MEDS: 0.9% Saline Lock 10 ML Syringe IV (14:21)
[2021-02-11 14:25] VITALS: BP 120/55; PULSE 61; RESP 16; TEMP 38.9; O2SAT 94; BMI 42.5
[2021-02-11] MEDS: Acetaminophen 325 MG Tablet 650 MG PO (14:37)
[2021-02-11 15:10] VITALS: BP 107/50; PULSE 63; RESP 16; TEMP 37.6; O2SAT 96
[2021-02-11 16:10] VITALS: BP 120/55; PULSE 66; RESP 16; TEMP 37.3; O2SAT 96
== END 2021-02-11 16:10 | disposition home or self-care (01) ==
LOC: MS3OUT 13:59 → MS3 14:00
PROVIDERS: PCP Preventive Medicine Occupational Medicine; Referring Provider Nurse Practitioner Adult Health; Visit Provider Nurse Practitioner Adult Health
DX: Z23 Encounter for immunization (principal); U07.1 COVID-19
CPT/HCPCS: J7050; M0245; Q0245; A4216

== ENCOUNTER → 2021-03-30 11:15 | Outpatient (CLI) | payer MEDICAID, SELFPAY ==
[2021-03-30 12:32] LABS: ALB/GLOB Ratio 0.9 RATIO (0.9-2.4); AST(SGOT) 15 U/L (15-37); Alanine Aminotransfer ALT/SGPT 32 U/L (13-56); Albumin, Serum 3.5 g/dL (3.2-5.0); Alkaline Phosphatase 126 U/L (45-117); Anion Gap 5 (5-15); BUN 13 mg/dL (7-18); BUN/Creat Ratio 13.8 RATIO (10-20); Chloride 104 mmol/L (98-107); Cholesterol 206 mg/dL (200); Creatinine, Serum 0.94 mg/dL (0.55-1.02); EST Glomerular Filtration Rate 62 mL/min (>60); Est Glom Filt Rate - Afr Amer 75 mL/min (>60); Globulin 3.9 g/dL (2.2-4.2); Glucose 84 mg/dL (74-106); High Density Lipoprotein 31 mg/dL; Potassium 4.5 mmol/L (3.5-5.1); Protein, Total 7.4 g/dL (6.4-8.2); Sodium Level 139 mmol/L (136-145); Triglycerides 299 mg/dL; Very Low Density Lipoprotein 60 mg/dL (5-40)
[2021-03-30 12:36] LABS: Microalbumin,Random Urine 6.2 mg/L (NO RANGE EST.)
== END ==
PROVIDERS: PCP Preventive Medicine Occupational Medicine; Visit Provider Preventive Medicine Occupational Medicine
DX: E78.2 Mixed hyperlipidemia (principal); E11.9 Type 2 diabetes mellitus without complications; I10 Essential (primary) hypertension
CPT/HCPCS: 36415; 80053; 80061; 82043

== ENCOUNTER 2021-04-07 12:27 | Outpatient (CLI) | payer MEDICAID, SELFPAY ==
--- NOTE | 2021-04-07 16:13 | PFTCOMP_ITS ---
COMPLETE PULMONARY FUNCTION TEST INTERPRETATION Brief HPI: Patient is a 71 year old female, currently under the care of myself, who presents to [facility] for complete pulmonary function tests secondary to diagnosis of dyspnea. Respiratory therapist reports good effort and reproducible results. Interpretation: Forced expiration spirometry shows a mild large airways obstructive ventilatory defect with an FEV1 of 78% predicted. There is no significant bronchodilator response by strict ATS criteria. Spirograms are of good quality and plateau slowly, indicating slowly emptying areas of the lungs. The respiratory flow volume loop shows decreased expiratory flow rates at all lung volumes consistent with airway obstruction. Lung volumes by body plethysmography show a normal total lung capacity at 4.54 L, 97% predicted. All other lung volumes are within normal limits. Diffusion capacity by carbon monoxide is decreased at 49% predicted. The airway resistance is normal. No previous pulmonary function tests were available for review. Impression: Irreversible mild large airways obstructive ventilatory defect with a disproportionate reduction in diffusion capacity.
== END 2021-04-07 23:59 | disposition short-term general hospital (02) ==
LOC: PSN 12:30
PROVIDERS: PCP Preventive Medicine Occupational Medicine; Referring Provider Internal Medicine Critical Care Medicine; Visit Provider Internal Medicine Critical Care Medicine
DX: U07.1 COVID-19 (principal); R06.00 Dyspnea, unspecified; R09.02 Hypoxemia; Z86.711 Personal history of pulmonary embolism
CPT/HCPCS: 94060; 94726; 94729

== ENCOUNTER 2021-04-09 12:45 | Outpatient (CLI) | payer MEDICAID, SELFPAY ==
[2021-04-09 13:00] VITALS: PULSE 54; PULSE 68; PULSE 75; PULSE 79; PULSE 83; PULSE 84; PULSE 85; O2SAT 91; O2SAT 92; O2SAT 93; O2SAT 94; O2SAT 96; O2SAT 97
--- NOTE | 2021-04-09 16:49 | WT_ITS ---
PSN 6 Minute Walk Test 6 Minute Walk Test 6 Minute Walk Test: 6 Minute Walk Test PSN:6-Minute Walk Test Start: 04/09/21 13:34 Freq: Status: Active Protocol: [id number].6MINW Document 04/09/21 13:00 [facility] (Rec: 04/09/21 13:41 [facility] [id number]) 6 Minute Walk Test Date Performed 04/09/21 Time Performed 13:00 Height 5 ft 3 in Weight: 112.491 kg Weight in Pounds 248.[address]: Lio Assistive device used: Cane Pre-test Oxygen Delivery Method Room Air Pulse Ox (%) 97 Pulse Rate (60-100 beats/min) 68 Dyspnea Tanvi Scale (0-10) 0 Exertion Tanvi Scale (6-20) 6 1st minute Oxygen Delivery Method Room Air Pulse Ox (%) 93 Pulse Rate (60-100 beats/min) 84 Dyspnea Tanvi Scale (0-10) 2 Number of Rests Taken 1 Reported Symptoms Increased Work of Breathing 2nd minute Oxygen Delivery Method Room Air Pulse Ox (%) 94 Pulse Rate (60-100 beats/min) 79 Dyspnea Tanvi Scale (0-10) 2 Number of Rests Taken 1 Reported Symptoms Increased Work of Breathing 3rd minute Oxygen Delivery Method Room Air Pulse Ox (%) 93 Pulse Rate (60-100 beats/min) 83 Dyspnea Tanvi Scale (0-10) 2 Number of Rests Taken 1 Reported Symptoms Increased Work of Breathing 4th minute Oxygen Delivery Method Room Air Pulse Ox (%) 93 Pulse Rate (60-100 beats/min) 54 L Dyspnea Tanvi Scale (0-10) 2 Number of Rests Taken 2 Reported Symptoms Increased Work of Breathing 5th minute Oxygen Delivery Method Room Air Pulse Ox (%) 91 Pulse Rate (60-100 beats/min) 85 Dyspnea Tanvi Scale (0-10) 2 Number of Rests Taken 1 Reported Symptoms Increased Work of Breathing 6th minute Oxygen Delivery Method Room Air Pulse Ox (%) 92 Pulse Rate (60-100 beats/min) 83 Dyspnea Tanvi Scale (0-10) 3 Exertion Tanvi Scale (6-20) 13 Post-test Oxygen Delivery Method Room Air Pulse Ox (%) 96 Pulse Rate (60-100 beats/min) 75 Full Laps Walked 7 Partial Lap, Number of Tiles Walked 10 Total Distance Walked (ft) 423 Interpretation Interpretation: The patient was able to travel 423 feet over the course of 6 minutes on room air with the assistance of a cane and 6 breaks. The patient experienced significant desaturation from a baseline of 97% to as low as 91% during ambulation. These findings are consistent with a musculoskeletal limitation exercise tolerance. Recommendations Recommendations: The patient requires no supplemental oxygen at this time, but needs to be followed closely given level of desaturation.
== END 2021-04-09 23:59 | disposition short-term general hospital (02) ==
LOC: PSN 12:47
PROVIDERS: PCP Preventive Medicine Occupational Medicine; Visit Provider Internal Medicine Critical Care Medicine
DX: R06.00 Dyspnea, unspecified (principal); R09.02 Hypoxemia; Z86.711 Personal history of pulmonary embolism; U07.1 COVID-19
CPT/HCPCS: 94618

== ENCOUNTER 2021-05-11 08:51 | Day surgery (SDC) | payer MEDICAID, SELFPAY ==
--- NOTE | 2021-04-17 15:01 | PCM.HP.BLA ---
History and Physical Date of Admission: 05/11/21 Chief Complaint: Follow up- pain in mid to low back History of Present Illness: This is a 71 Y/O Female who was evaluated by our office today as a follow up in office Pain: right sacral iliac Quality: varies in intensity w/activity Region: Reports pain in the mid back to the left, right sacral iliac Severity: aching,soreness Timin Aggravated by: activity Relieved by: pain medication Pain score (out of 10): 09/11 Other info: Follow up for pain in lower back and states pain is achy. States pain goes up her spine almost to waist. Reports pain in right sacroiliac joint that is constant and varies in intensity. States she is feeling much better since having Covid. Review of Systems: Patient denies any recent fever, chills, headache, change in weight without trying, vision or hearing problems. No cp, sob, rodriguez, pnd, orthopnea, or peripheral edema.They note no lumps or swollen glands, no new rashes, changing moles, or change in bowel or bladder function.Mood has been depressed, angry. johnson. 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 drugs: Denies Allergies: Seasonal, Enviromental, atorvastatin Medications: 1) atenolol 25 mg oral tablet, Take 1 tablet by mouth every evening 2) busPIRone 10 mg oral tablet, 2 tablets TID 3) DOK 100 mg oral capsule, One tablet BID 4) Eliquis 5 mg oral tablet, Take 1 tablet by mouth 2 times a Day 5) escitalopram 10 mg oral tablet, One tablet daily 6) Fleet Bisacodyl 5 mg oral delayed release tablet, 1 tab po prn 7) furosemide 20 mg oral tablet, Take 1 tablet by mouth once daily 8) gabapentin 600 mg oral tablet, 1 tablet po qid 9) lactulose 20 g oral powder for reconstitution, 15-30ml qday prn 10) lisinopril 5 mg oral tablet, One tablet daily 11) metFORMIN 500 mg oral tablet, One tablet BID 12) Multiple Vitamins oral tablet, One tablet daily 13) nicotine 21 mg/24 hr transdermal film, extended release, daily as directed 14) Norvasc 5 mg oral tablet, One tablet daily 15) SEROquel 200 mg oral tablet, takes along w/ the 400mg at night 16) SEROquel 400 mg oral tablet, One tablet at night 17) SUMAtriptan 100 mg oral tablet, 1 tab po qday as directed prn 18) traMADol 50 mg oral tablet, 1 tablet bid to tid as need for pain Physical Examination: Wt: 238 lb Ht/Ln: 62.5 in BMI: 42.8 BP: 121/70 Pulse: 56 RR: 16 Temp: 97.1F Pain: 6 Well nourished and well developed in no acute distress. Alert and oriented to person, place and time. Affect is normal and appropriate. Mucosa pink and moist. Respirations even and unlabored. Neck is supple without significant lymphadenopathy or thyromegaly. Abdomen soft & non-tender. No HSM or masses appreciated. Extremities show no cyanosis, clubbing, or edema. Gait is Antalgic. Lumbar paraspinal muscle tenderness Lumbar ROM is limited due to pain Bilateral lumbar facet loading is positive Sacroiliac Joint Tenderness on palpation SLR is positive on the right. Positive NICK test on the right. Motor and sensory exam is unchanged. Goals: Health Concerns: Assessment & Plan: # Degeneration of lumbosacral intervertebral disc (M51.37): # Lumbosacral spondylosis (M47.817): # Degenerative lumbar spinal stenosis (M48.06): # Degeneration of lumbar intervertebral disc (M51.36): # Arthropathy of lumbar facet (M46.96): # Lumbar radiculopathy (M54.16): # Disorder of sacrum (M53.3): # Muscle pain (M79.1) # Pain in right knee (M25.561): Continue current medication regime will call for refills. UDS was reviewed, pt appears compliant. SOAPP score is 13 There are no signs of diversion or addiction with the pt, there is also no signs of abuse or misuse, continues to do well with their medications without any side effects, we will continue monitoring the pt closely. Life style modifications were also discussed today and the pt appears to understand. Weight loss was recommended today through diet and exercise. Risks and benefits of the above meds were discussed with the pt and they appear to understand. The common side effects of the medications were discussed and all of their questions and concerns were answered and they appear to understand Discussed natural and expected course of this diagnosis and need to alert me if symptoms do not follow expected course, or if any worse. Pt is to continue with her HEP. Pt has tried multiple modalities in the past with little or no success, will schedule the pt for a therapeutic/diagnostic caudal epidural steroid injection under fluoroscopy We have discussed the risks, benefits as well as alternatives of the procedure and the patient appears to understand and would like to proceed with the above plan. The above plan was discussed today with the pt in details and they appear to understand and agrees to continue with the plan.
[2021-05-11 09:20] VITALS: BP 132/75; PULSE 66; RESP 18; TEMP 36.8; O2SAT 98; BMI 43.6
[2021-05-11] MEDS: Lactated Ringers 1,000 ML 15 ML IV (09:40)
[2021-05-11 10:25] LABS: Bedside Glucose 87 mg/dL (70-110)
--- NOTE | 2021-05-11 10:25 | RAD_ITS ---
PROCEDURE: Caudal block. DATE OF EXAMINATION: 05/11/2021. INDICATION: Female, 71 years old. Chronic low back pain. FLUOROSCOPY TIME (if supplied): (6 seconds) minutes/seconds. 2 images were obtained. RAD/Fluor Guidance for Spine Inj IMPRESSION: Intraoperative imaging provided for caudal block. Electronically Signed: Dwight Cleary MD at 15:22 EST ,
[2021-05-11] MEDS: Lidocaine 1% (5 ml sdv) 5 ML Vial (10:37)
[2021-05-11] MEDS: MethylPREDNISolone Acetate 80 MG/ML Vial (10:38)
[2021-05-11] MEDS: Bupivacaine 0.25% 30 ML Vial (10:38)
[2021-05-11] MEDS: 0.9% Normal Saline (Pres. free 10 ML Vial (10:38)
[2021-05-11 10:41] VITALS: BP 131/75; BP 132/75; PULSE 67; RESP 16; TEMP 36.6; O2SAT 95
[2021-05-11 10:45] VITALS: BP 125/77; BP 132/75; PULSE 67; RESP 16; O2SAT 96
[2021-05-11 10:50] VITALS: BP 116/70; BP 132/75; PULSE 67; RESP 16; O2SAT 97
[2021-05-11 10:55] VITALS: BP 112/74; BP 132/75; PULSE 65; RESP 16; TEMP 36.2; O2SAT 96
[2021-05-11 11:07] VITALS: BP 132/75
--- NOTE | 2021-05-11 11:20 | OP.PCM_ITS ---
Report of Operation Date of Procedure: 05/11/21 Pre-Operative Diagnosis: Lumbosacral radiculopathy, lumbosacral degenerative di sc disease, lumbosacral spinal stenosis Post-Operative Diagnosis: Lumbosacral radiculopathy, lumbosacral degenerative disc disease, lumbosacral spinal stenosis Surgery/Procedure Performed:: Caudal epidural steroid injection under fluoroscopic guidance Type of Anesthesia: MAC Estimated Blood Loss (mL): Minimal Description of Procedure: DESCRIPTION OF PROCEDURE: History and physical of today was reviewed. Risks and benefits of the procedure were explained. The patient understood and agreed to proceed. Informed consent was obtained. IV inserted per routine protocol. The patient was taken to the operating room and placed in the prone position with a pillow positioned underneath the abdomen. The lower back and tailbone area was prepped and draped in a sterile fashion using iodine x3. Under fluoroscopy guidance on a lateral view, the caudal space was identified. The skin and subcutaneous tissue was anesthetized with approximately 3 mL of 1% lidocaine using a 25-gauge regular needle. Under direct visualization with fluoroscopy, using a 22-gauge 3-1/2-inch spinal needle, the needle was advanced via the skin through the sacral hiatus. The tip of the needle was passed through the sacrococcygeal ligament and advanced to approximately S4 area. After negative aspiration of blood or CSF, a total of 3 mL of contrast was injected to confirm correct placement of the needle as well as cephalad spread. The spread was followed to approximately L5 area. After confirmation on AP as well as lateral view and repeated negative aspiration, a total of 15 mL of preservative-free 0.125% Marcaine with 80 mg of Depo-Medrol was injected easily. The needle was then removed intact. The patient experienced no sign or symptoms of intrathecal or intravascular injection. The patient experienced no paresthesia. The procedure was completed without any apparent difficulty or any complications. The patient appeared to tolerate it well. ASSESSMENT AND PLAN: This is a 71-year-old female with lumbosacral radiculopathy, lumbosacral degenerative disc disease, lumbosacral spinal stenosis status post caudal epidural steroid injection, patient will continue her current medications, patient will follow in approximately 2 weeks for reevaluation. Complications None
== END 2021-05-11 23:59 | disposition home or self-care (01) ==
LOC: SDC 08:52 → AC 08:53
PROVIDERS: PCP Preventive Medicine Occupational Medicine; Referring Provider Anesthesiology Pain Medicine; Visit Provider Anesthesiology Pain Medicine
PROC: 3E0S3BZ Introduction of Anesthetic Agent into Epidural Space, Percutaneous Approach (ICD-10-PCS; CPT 62282; principal; 2021-05-11 10:20)
DX: M47.27 Other spondylosis with radiculopathy, lumbosacral region (principal); M46.96 Unspecified inflammatory spondylopathy, lumbar region; I11.0 Hypertensive heart disease with heart failure; I50.30 Unspecified diastolic (congestive) heart failure; E11.9 Type 2 diabetes mellitus without complications; M47.26 Other spondylosis with radiculopathy, lumbar region; Z87.891 Personal history of nicotine dependence; Z79.84 Long term (current) use of oral hypoglycemic drugs; E78.5 Hyperlipidemia, unspecified; M48.061 Spinal stenosis, lumbar region without neurogenic claudication; M51.16 Intervertebral disc disorders with radiculopathy, lumbar region; M48.07 Spinal stenosis, lumbosacral region; F32.A Depression, unspecified; M19.90 Unspecified osteoarthritis, unspecified site; Z91.51 Personal history of suicidal behavior; Z86.711 Personal history of pulmonary embolism; Z79.01 Long term (current) use of anticoagulants; Z79.899 Other long term (current) drug therapy
CPT/HCPCS: 62323; 01992; 64483; 77003; 82962; J7120; J3490

== ENCOUNTER 2021-06-22 06:50 | Day surgery (SDC) | payer MEDICAID, SELFPAY ==
[2021-06-22 07:27] VITALS: BP 134/69; PULSE 50; RESP 16; TEMP 36.1; O2SAT 96; BMI 44.6
[2021-06-22] MEDS: Lactated Ringers 1,000 ML 15 ML IV (07:45)
[2021-06-22 07:56] LABS: Bedside Glucose 107 mg/dL (74-106)
--- NOTE | 2021-06-22 08:50 | RAD_ITS ---
STUDY: X-RAY - SACROILIAC JOINTS REASON FOR EXAM: Female, 71 years old. RT SI JOINT INJECTION TECHNIQUE: 1 view(s) of the sacroiliac joints were obtained. COMPARISON: None. FINDINGS: Single spot fluoroscopy image of right SI joint injection. Appropriate positioning of the needle. Recommend evaluation of performing physician''s report for further details RAD/Fluoro Guided Needle Placement IMPRESSION: As above Electronically Signed: Rambo Christine DO at 16:42 EDT ,
[2021-06-22] MEDS: MethylPREDNISolone Acetate 40 MG/ML Vial IM (08:52)
[2021-06-22] MEDS: Lidocaine 1% (5 ml sdv) 5 ML Vial (08:52)
[2021-06-22] MEDS: Bupivacaine 0.25% 30 ML Vial (08:52)
[2021-06-22 09:01] VITALS: BP 118/66; BP 134/69; PULSE 56; RESP 14; TEMP 36.9; O2SAT 96
[2021-06-22 09:05] VITALS: BP 129/72; BP 134/69; PULSE 55; RESP 16; O2SAT 96
[2021-06-22 09:10] VITALS: BP 134/69; BP 135/106; PULSE 60; RESP 16; O2SAT 94
[2021-06-22 09:16] VITALS: BP 134/69; BP 138/79; PULSE 64; RESP 16; TEMP 37.4; O2SAT 98
[2021-06-22 09:43] VITALS: BP 134/69
--- NOTE | 2021-06-22 16:04 | OP.PCM_ITS ---
Report of Operation Date of Procedure: 06/22/21 Description of Surgical Findings:: PREOPERATIVE DIAGNOSES: 1. Sacroiliitis. 2. Sacroiliac joint dysfunction. POSTOPERATIVE DIAGNOSES: 1. Sacroiliitis. 2. Sacroiliac joint dysfunction. PROCEDURE PERFORMED: Right sided sacroiliac joint steroid injection under fluoroscopy guidance. ANESTHESIA: MAC. BLOOD LOSS: Minimal. COMPLICATIONS: None. DESCRIPTION OF PROCEDURE: History and physical of today was reviewed. Risks and benefits of the procedure were explained. The patient understood and agreed to the procedure. Informed consent was obtained. IV inserted per routine protocol. The patient was taken to the operating room and placed in the prone position with a pillow positioned underneath the abdomen. The right lower back and buttock area was prepped and draped in a sterile fashion using iodine x3. Under fluoroscopy guidance on an AP view, the right SI joint was visualized. The skin and subcutaneous tissue was anesthetized with approximately 3 mL of 1% lidocaine using a 25-gauge regular needle. Under direct visualization with fluoroscopy at approximately 15-degree angle, using a 22-gauge 3-1/2-inch spinal needle, the needle was advanced via the skin. The tip of the needle was maneuvered and directed towards the inferior one-third of the posterior SI joint. Once the tip of the needle was at the vicinity of the joint, after negative aspiration for blood or CSF, a total of 1 mL of contrast was injected to confirm correct placement of the needle as well as cephalocaudal spread. Confirmation was obtained on AP as well as oblique view. After repeated negat leann aspiration and confirmation, a total of 4 mL of preservative-free 0.25% Marcaine with 40 mg of Depo-Medrol was injected in and around the SI joint. The needle was then removed intact. The patient experienced no sign or symptoms of intrathecal or intravascular injection. The patient experienced no paresthesia. The procedure was completed without any apparent difficulty or any complications. The patient appeared to tolerate it well. ASSESSMENT AND PLAN: This is a 71-year-old female with sacroiliitis, sacroiliac joint dysfunction status post right-sided sacroiliac joint steroid injection under fluoroscopic guidance, patient will continue her current medications, patient will follow in approximately 2 weeks for reevaluation.
== END 2021-06-22 23:59 | disposition home or self-care (01) ==
LOC: SDC 06:51 → AC 07:02
PROVIDERS: PCP Preventive Medicine Occupational Medicine; Referring Provider Anesthesiology Pain Medicine; Visit Provider Anesthesiology Pain Medicine
PROC: 3E0U3GC Introduction of Other Therapeutic Substance into Joints, Percutaneous Approach (ICD-10-PCS; CPT 27096; principal; 2021-06-22 08:45)
DX: M46.1 Sacroiliitis, not elsewhere classified (principal); F20.9 Schizophrenia, unspecified; M46.96 Unspecified inflammatory spondylopathy, lumbar region; J44.9 Chronic obstructive pulmonary disease, unspecified; I11.0 Hypertensive heart disease with heart failure; I50.30 Unspecified diastolic (congestive) heart failure; F31.9 Bipolar disorder, unspecified; E11.9 Type 2 diabetes mellitus without complications; M53.3 Sacrococcygeal disorders, not elsewhere classified; E78.5 Hyperlipidemia, unspecified; G43.909 Migraine, unspecified, not intractable, without status migrainosus; M19.90 Unspecified osteoarthritis, unspecified site; Z91.51 Personal history of suicidal behavior; Z86.711 Personal history of pulmonary embolism; Z87.891 Personal history of nicotine dependence; Z79.899 Other long term (current) drug therapy; Z79.84 Long term (current) use of oral hypoglycemic drugs; Z79.01 Long term (current) use of anticoagulants; M51.37 Other intervertebral disc degeneration, lumbosacral region; M47.817 Spondylosis without myelopathy or radiculopathy, lumbosacral region; M48.061 Spinal stenosis, lumbar region without neurogenic claudication; M54.16 Radiculopathy, lumbar region; E78.00 Pure hypercholesterolemia, unspecified
CPT/HCPCS: 27096; 01250; 76000; 77002; 82962; J7120

== ENCOUNTER 2021-07-20 08:10 | Day surgery (SDC) | payer MEDICAID, SELFPAY ==
[2021-07-20 09:32] VITALS: BP 142/69; PULSE 61; RESP 18; TEMP 36.8; O2SAT 96; BMI 44.1
[2021-07-20] MEDS: Lactated Ringers 1,000 ML 15 ML IV (09:47)
[2021-07-20 09:56] LABS: Bedside Glucose 100 mg/dL (74-106)
--- NOTE | 2021-07-20 10:24 | RAD_ITS ---
INDICATION: CAUDAL EPIDURAL INJECTION EXAMINATION/TECHNIQUE: X-RAY - IR Fluoro Guide Injection Spine COMPARISON: None. FLUOROSCOPY TIME: 10.1 seconds. FLUOROSCOPY DOSE: 12.59 mGy FINDINGS: A spot fluoroscopic image was obtained intraoperatively. Images demonstrate needle placement for cortical epidural injection. No radiologist was present for the procedure, please refer to operative report for details. RAD/Fluor Guidance for Spine Inj IMPRESSION: Please refer to operative report for details. Electronically Signed: Quinton Cohen MD at 14:25 EDT ,
[2021-07-20] MEDS: MethylPREDNISolone Acetate 80 MG/ML Vial (10:26)
[2021-07-20] MEDS: Bupivacaine 0.25% 30 ML Vial (10:26)
[2021-07-20] MEDS: Lidocaine 1% (2ml-nursery) 2 ML VIAL (10:27)
[2021-07-20] MEDS: 0.9% Normal Saline (Pres. free 10 ML Vial (10:27)
[2021-07-20 10:40] VITALS: BP 137/72; BP 142/69; PULSE 67; RESP 16; TEMP 36.2; O2SAT 97
[2021-07-20 10:45] VITALS: BP 142/69; BP 142/72; PULSE 67; RESP 18; O2SAT 99
[2021-07-20 10:50] VITALS: BP 142/69; BP 143/77; PULSE 66; RESP 16; O2SAT 99
[2021-07-20 10:55] VITALS: BP 136/76; BP 142/69; PULSE 64; RESP 16; TEMP 36.4; O2SAT 100
[2021-07-20 11:09] VITALS: BP 142/69
--- NOTE | 2021-07-20 12:17 | OP.PCM_ITS ---
Report of Operation Date of Procedure: 07/20/21 Pre-Operative Diagnosis: Lumbosacral radiculopathy, lumbosacral degenerative di sc disease, lumbosacral spinal stenosis Post-Operative Diagnosis: Lumbosacral radiculopathy, lumbosacral degenerative disc disease, lumbosacral spinal stenosis Surgery/Procedure Performed:: Caudal epidural steroid injection under fluoroscopic guidance Type of Anesthesia: MAC Estimated Blood Loss (mL): Minimal Description of Procedure: DESCRIPTION OF PROCEDURE: History and physical of today was reviewed. Risks and benefits of the procedure were explained. The patient understood and agreed to proceed. Informed consent was obtained. IV inserted per routine protocol. The patient was taken to the operating room and placed in the prone position with a pillow positioned underneath the abdomen. The lower back and tailbone area was prepped and draped in a sterile fashion using iodine x3. Under fluoroscopy guidance on a lateral view, the caudal space was identified. The skin and subcutaneous tissue was anesthetized with approximately 3 mL of 1% lidocaine using a 25-gauge regular needle. Under direct visualization with fluoroscopy, using a 22-gauge 3-1/2-inch spinal needle, the needle was advanced via the skin through the sacral hiatus. The tip of the needle was passed through the sacrococcygeal ligament and advanced to approximately S4 area. After negative aspiration of blood or CSF, a total of 3 mL of contrast was injected to confirm correct placement of the needle as well as cephalad spread. The spread was followed to approximately L5 area. After confirmation on AP as well as lateral view and repeated negative aspiration, a total of 15 mL of preservative-free 0.125% Marcaine with 80 mg of Depo-Medrol was injected easily. The needle was then removed intact. The patient experienced no sign or symptoms of intrathecal or intravascular injection. The patient experienced no paresthesia. The procedure was completed without any apparent difficulty or any complications. The patient appeared to tolerate it well. ASSESSMENT AND PLAN: This is a 71-year-old female with lumbosacral radiculopathy, lumbosacral degenerative disc disease, lumbosacral spinal stenosis status post caudal epidural steroid injection, patient will continue her current medications, patient will follow in approximately 2 weeks for reevaluation. Complications None
== END 2021-07-20 23:59 | disposition home or self-care (01) ==
LOC: SDC 08:12 → AC 09:09
PROVIDERS: PCP Preventive Medicine Occupational Medicine; Referring Provider Anesthesiology Pain Medicine; Visit Provider Anesthesiology Pain Medicine
PROC: 3E0S3BZ Introduction of Anesthetic Agent into Epidural Space, Percutaneous Approach (ICD-10-PCS; CPT 62282; principal; 2021-07-20 10:25)
DX: M47.27 Other spondylosis with radiculopathy, lumbosacral region (principal); F20.9 Schizophrenia, unspecified; M46.96 Unspecified inflammatory spondylopathy, lumbar region; J44.9 Chronic obstructive pulmonary disease, unspecified; F31.9 Bipolar disorder, unspecified; E11.9 Type 2 diabetes mellitus without complications; M51.17 Intervertebral disc disorders with radiculopathy, lumbosacral region; M48.07 Spinal stenosis, lumbosacral region; E78.5 Hyperlipidemia, unspecified; I10 Essential (primary) hypertension; M19.90 Unspecified osteoarthritis, unspecified site; F41.9 Anxiety disorder, unspecified; Z91.51 Personal history of suicidal behavior; Z86.711 Personal history of pulmonary embolism; Z87.891 Personal history of nicotine dependence; Z79.899 Other long term (current) drug therapy; Z79.84 Long term (current) use of oral hypoglycemic drugs; Z79.01 Long term (current) use of anticoagulants; M48.061 Spinal stenosis, lumbar region without neurogenic claudication; M51.16 Intervertebral disc disorders with radiculopathy, lumbar region
CPT/HCPCS: 62323; 64483; 77003; 82962; J7120; J3490

== ENCOUNTER → 2021-10-19 | Outpatient (CLI) | payer MEDICAID, SELFPAY ==
[2021-10-19 10:50] LABS: Microalbumin,Random Urine < 5.0 mg/L (NO RANGE EST.)
[2021-10-19 11:02] LABS: ALB/GLOB Ratio 0.9 RATIO (0.9-2.4); AST(SGOT) 15 U/L (15-37); Alanine Aminotransfer ALT/SGPT 27 U/L (13-56); Albumin, Serum 3.6 g/dL (3.2-5.0); Alkaline Phosphatase 117 U/L (45-117); Anion Gap 7 (5-15); BUN 17 mg/dL (7-18); BUN/Creat Ratio 15.3 RATIO (10-20); Calcium,Total 9.6 mg/dL (8.5-10.1); Chloride 103 mmol/L (98-107); Cholesterol 219 mg/dL (200); Creatinine, Serum 1.11 mg/dL (0.55-1.02); EST Glomerular Filtration Rate 51 mL/min (>60); Est Glom Filt Rate - Afr Amer 62 mL/min (>60); Globulin 3.9 g/dL (2.2-4.2); Glucose 97 mg/dL (74-106); High Density Lipoprotein 31 mg/dL; Potassium 4.5 mmol/L (3.5-5.1); Protein, Total 7.5 g/dL (6.4-8.2); Sodium Level 138 mmol/L (136-145); Triglycerides 394 mg/dL; Very Low Density Lipoprotein 79 mg/dL (5-40)
== END | disposition home or self-care (01) ==
LOC: LAB 09:35
PROVIDERS: PCP Preventive Medicine Occupational Medicine; Visit Provider Preventive Medicine Occupational Medicine
DX: E11.9 Type 2 diabetes mellitus without complications (principal); I10 Essential (primary) hypertension; E78.2 Mixed hyperlipidemia
CPT/HCPCS: 36415; 80053; 80061; 82043

== ENCOUNTER 2021-10-28 10:22 | Outpatient (CLI) | payer MEDICAID, SELFPAY ==
[2021-10-28 11:40] LABS: Anion Gap 6 (5-15); BUN 10 mg/dL (7-18); Calcium,Total 9.2 mg/dL (8.5-10.1); Chloride 105 mmol/L (98-107); Creatinine, Serum 0.91 mg/dL (0.55-1.02); EST Glomerular Filtration Rate 65 mL/min (>60); Est Glom Filt Rate - Afr Amer 78 mL/min (>60); Glucose 86 mg/dL (74-106); Potassium 4.5 mmol/L (3.5-5.1); Sodium Level 139 mmol/L (136-145)
[2021-10-28 11:41] LABS: BNP,B-Type NATRIURETIC PEPTIDE 78.6 pg/mL (0-100)
== END 2021-10-28 23:59 | disposition home or self-care (01) ==
LOC: LAB 10:23
PROVIDERS: PCP Preventive Medicine Occupational Medicine; Referring Provider Nurse Practitioner Family; Visit Provider Nurse Practitioner Family
DX: I50.30 Unspecified diastolic (congestive) heart failure (principal)
CPT/HCPCS: 36415; 80048; 83880

== ENCOUNTER 2021-11-16 08:07 | Day surgery (SDC) | payer MEDICAID, SELFPAY ==
[2021-11-16] MEDS: Lactated Ringers 1,000 ML 15 ML IV (08:20)
[2021-11-16 08:31] VITALS: BP 124/49; PULSE 61; RESP 16; TEMP 37.2; O2SAT 93; BMI 44.6
[2021-11-16 09:01] LABS: Bedside Glucose 115 mg/dL (74-106)
[2021-11-16] MEDS: MethylPREDNISolone Acetate 40 MG/ML Vial IM (10:18)
[2021-11-16] MEDS: Lidocaine 1% (5 ml sdv) 5 ML Vial (10:18)
[2021-11-16] MEDS: Bupivacaine 0.25% 30 ML Vial (10:18)
--- NOTE | 2021-11-16 10:20 | RAD_ITS ---
PROCEDURE: Sacroiliac joints steroid injection. DATE OF EXAMINATION: 11/16/2021. INDICATION: Female, 71 years old. Low back pain. FLUOROSCOPY TIME (if supplied): (8 seconds) minutes/seconds. One image was submitted. RAD/Fluoro Guided Needle Placement IMPRESSION: Intraoperative imaging provided for sacroiliac joint injection. Electronically Signed: Dwight Cleary MD at 8:58 EDT ,
[2021-11-16 10:27] VITALS: BP 119/51; BP 124/49; PULSE 63; RESP 14; TEMP 36.3; O2SAT 98
[2021-11-16 10:30] VITALS: BP 100/58; BP 124/49; PULSE 62; RESP 16; O2SAT 97
[2021-11-16 10:35] VITALS: BP 124/49; BP 93/56; PULSE 62; RESP 16; O2SAT 98
[2021-11-16 10:40] VITALS: BP 101/57; BP 124/49; PULSE 64; RESP 16; O2SAT 98
[2021-11-16 10:46] VITALS: BP 106/69; BP 124/49; PULSE 64; RESP 16; TEMP 36.8; O2SAT 98
--- NOTE | 2021-11-16 12:28 | PCM.OPRPT ---
Report of Operation Date of Procedure: 11/16/21 Description of Surgical Findings:: PREOPERATIVE DIAGNOSES: 1. Sacroiliitis. 2. Sacroiliac joint dysfunction. POSTOPERATIVE DIAGNOSES: 1. Sacroiliitis. 2. Sacroiliac joint dysfunction. PROCEDURE PERFORMED:?Right sided sacroiliac joint steroid injection under fluoroscopy guidance. ANESTHESIA:? MAC. BLOOD LOSS:? Minimal. COMPLICATIONS:? None. DESCRIPTION OF PROCEDURE:? History and physical of today was reviewed.? Risks and benefits of the procedure were explained.? The patient understood and agreed to the procedure.? Informed consent was obtained.? IV inserted per routine protocol.? The patient was taken to the operating room and placed in the prone position with a pillow positioned underneath the abdomen.? The right lower back and buttock area was prepped and draped in a sterile fashion using iodine x3.? Under fluoroscopy guidance on an AP view, the right SI joint was visualized.? The skin and subcutaneous tissue was anesthetized with approximately 3 mL of 1% lidocaine using a 25-gauge regular needle.? Under direct visualization with fluoroscopy at approximately 15-degree angle, using a 22-gauge 3-1/2-inch spinal needle, the needle was advanced via the skin.? The tip of the needle was maneuvered and directed towards the inferior one-third of the posterior SI joint.? Once the tip of the needle was at the vicinity of the joint, after negative aspiration for blood or CSF, a total of 1 mL of contrast was injected to confirm correct placement of the needle as well as cephalocaudal spread.? Confirmation was obtained on AP as well as oblique view.? After repeated negative aspiration and confirmation, a total of 4 mL of preservative-free 0.25% Marcaine with 40 mg of Depo-Medrol was injected in and around the SI joint.? The needle was then removed intact.? The patient experienced no sign or symptoms of intrathecal or intravascular injection.? The patient experienced no paresthesia.? The procedure was completed without any apparent difficulty or any complications.? The patient appeared to tolerate it well. ASSESSMENT AND PLAN: ? This is a 71-year-old female with sacroiliitis, sacroiliac joint dysfunction status post right-sided sacroiliac joint steroid injection under fluoroscopic guidance, patient will continue her current medications, patient will follow in approximately 2 weeks for reevaluation.
== END 2021-11-16 11:27 | disposition home or self-care (01) ==
LOC: SDC 08:07 → AC 08:09
PROVIDERS: PCP Preventive Medicine Occupational Medicine; Referring Provider Anesthesiology Pain Medicine; Visit Provider Anesthesiology Pain Medicine
PROC: 3E0U3GC Introduction of Other Therapeutic Substance into Joints, Percutaneous Approach (ICD-10-PCS; CPT 27096; principal; 2021-11-16 10:15)
DX: M46.1 Sacroiliitis, not elsewhere classified (principal); J44.9 Chronic obstructive pulmonary disease, unspecified; I50.30 Unspecified diastolic (congestive) heart failure; I11.0 Hypertensive heart disease with heart failure; F31.9 Bipolar disorder, unspecified; I25.10 Atherosclerotic heart disease of native coronary artery without angina pectoris; Z86.711 Personal history of pulmonary embolism; E78.00 Pure hypercholesterolemia, unspecified; Z79.84 Long term (current) use of oral hypoglycemic drugs; Z79.899 Other long term (current) drug therapy; Z87.891 Personal history of nicotine dependence
CPT/HCPCS: 27096; 01250; 76000; 77002; 82962; 93005; J7120

== ENCOUNTER → 2021-12-02 | Outpatient (CLI) | payer MEDICAID, SELFPAY ==
--- NOTE | 2021-12-02 09:53 | RAD_ITS ---
STUDY: X-RAY - LUMBOSACRAL SPINE REASON FOR EXAM: Female, 71 years old. OTHER INTERVERTEBRAL DISC DEGEN, LUMBOSACRAL REGION TECHNIQUE: 7 view(s) of the lumbosacral spine were obtained. COMPARISON: None FINDINGS: There is a mild dextroscoliosis of the thoracolumbar spine and levoscoliosis of the lumbar spine. There is severe loss of disc space height throughout the lumbar spine with moderate diffuse endplate sclerosis and moderate anterior osteophyte formation. This is less pronounced at L5-S1. There is normal alignment. RAD/L/S Spine Comp/w Bending Views IMPRESSION: Degenerative changes as above. Electronically Signed: Seth Hsieh MD, [facility]AS at 11:14 EDT ,
== END | disposition home or self-care (01) ==
LOC: RAD 09:49
PROVIDERS: PCP Preventive Medicine Occupational Medicine; Visit Provider Anesthesiology Pain Medicine
DX: M51.37 Other intervertebral disc degeneration, lumbosacral region (principal)
CPT/HCPCS: 72114

== ENCOUNTER 2022-01-04 07:37 | Day surgery (SDC) | payer MEDICAID, SELFPAY ==
[2022-01-04 09:07] VITALS: BP 139/68; PULSE 57; RESP 16; TEMP 36; O2SAT 95; BMI 45.5
[2022-01-04] MEDS: Lactated Ringers 1,000 ML 15 ML IV (09:10)
[2022-01-04 09:36] LABS: Bedside Glucose 107 mg/dL (74-106)
--- NOTE | 2022-01-04 09:45 | RAD_ITS ---
PROCEDURE: Caudal epidural. DATE OF EXAMINATION: 01/04/2022 INDICATION: Female, 71 years old. Low back pain. FLUOROSCOPY TIME (if supplied): (19 seconds) minutes/seconds. One image was obtained. RAD/Fluor Guidance for Spine Inj IMPRESSION: Intraoperative imaging provided for caudal epidural. Electronically Signed: Dwight Cleary MD at 15:52 EDT ,
[2022-01-04] MEDS: 0.9% Normal Saline (Pres. free 10 ML Vial (10:26)
[2022-01-04] MEDS: Lidocaine 1% (30 ml sdv) 30 ML Vial (10:26)
[2022-01-04] MEDS: MethylPREDNISolone Acetate 40 MG/ML Vial IM ×2 (10:26)
[2022-01-04 10:37] VITALS: BP 121/62; BP 139/68; PULSE 63; RESP 16; TEMP 36.5; O2SAT 96
--- NOTE | 2022-01-04 10:39 | OP.PCM_ITS ---
Report of Operation Date of Procedure: 01/04/22 Pre-Operative Diagnosis: Lumbosacral radiculopathy, lumbosacral degenerative di sc disease, lumbosacral spinal stenosis Post-Operative Diagnosis: Lumbosacral radiculopathy, lumbosacral degenerative disc disease, lumbosacral spinal stenosis Surgery/Procedure Performed:: Caudal epidural steroid injection under fluoroscopic guidance Type of Anesthesia: MAC Estimated Blood Loss (mL): Minimal Description of Procedure: DESCRIPTION OF PROCEDURE: History and physical of today was reviewed. Risks and benefits of the procedure were explained. The patient understood and agreed to proceed. Informed consent was obtained. IV inserted per routine protocol. The patient was taken to the operating room and placed in the prone position with a pillow positioned underneath the abdomen. The lower back and tailbone area was prepped and draped in a sterile fashion using iodine x3. Under fluoroscopy guidance on a lateral view, the caudal space was identified. The skin and subcutaneous tissue was anesthetized with approximately 3 mL of 1% lidocaine using a 25-gauge regular needle. Under direct visualization with fluoroscopy, using a 22-gauge 3-1/2-inch spinal needle, the needle was advanced via the skin through the sacral hiatus. The tip of the needle was passed through the sacrococcygeal ligament and advanced to approximately S4 area. After negative aspiration of blood or CSF, a total of 3 mL of contrast was injected to confirm correct placement of the needle as well as cephalad spread. The spread was followed to approximately L5 area. After confirmation on AP as well as lateral view and repeated negative aspiration, a total of 15 mL of preservative-free 0.125% Marcaine with 80 mg of Depo-Medrol was injected easily. The needle was then removed intact. The patient experienced no sign or symptoms of intrathecal or intravascular injection. The patient experienced no paresthesia. The procedure was completed without any apparent difficulty or any complications. The patient appeared to tolerate it well. ASSESSMENT AND PLAN: This is a 71-year-old female with lumbosacral radiculopathy, lumbosacral degenerative disc disease, lumbosacral spinal stenosis status post caudal epidural steroid injection, patient will continue her current medications, patient will follow in approximately 2 weeks for reevaluation. Complications None
[2022-01-04 10:40] VITALS: BP 120/65; BP 139/68; PULSE 62; RESP 16; O2SAT 97
[2022-01-04 10:44] VITALS: BP 120/68; BP 139/68; PULSE 63; RESP 16; O2SAT 96
[2022-01-04 10:49] VITALS: BP 125/69; BP 139/68; PULSE 63; RESP 16; TEMP 36.3; O2SAT 96
[2022-01-04 11:11] VITALS: BP 139/68
== END 2022-01-04 11:33 | disposition home or self-care (01) ==
LOC: SDC 07:37 → AC 09:07
PROVIDERS: PCP Preventive Medicine Occupational Medicine; Visit Provider Anesthesiology Pain Medicine
PROC: 3E0S3BZ Introduction of Anesthetic Agent into Epidural Space, Percutaneous Approach (ICD-10-PCS; CPT 62282; principal; 2022-01-04 10:40)
DX: M51.17 Intervertebral disc disorders with radiculopathy, lumbosacral region (principal); J44.9 Chronic obstructive pulmonary disease, unspecified; I50.30 Unspecified diastolic (congestive) heart failure; I11.0 Hypertensive heart disease with heart failure; F31.9 Bipolar disorder, unspecified; M48.07 Spinal stenosis, lumbosacral region; E78.00 Pure hypercholesterolemia, unspecified; Z87.891 Personal history of nicotine dependence; Z79.899 Other long term (current) drug therapy; Z94.7 Corneal transplant status
CPT/HCPCS: 62323; 01992; 64483; 77003; 82962; J7120; J3490

== ENCOUNTER → 2022-01-25 | Outpatient (CLI) | payer MEDICAID, SELFPAY ==
--- NOTE | 2022-01-25 09:25 | RAD_ITS ---
STUDY: X-RAY - RIGHT KNEE REASON FOR EXAM: Female, 71 years old. PAIN TECHNIQUE: 4 view(s) of the knee. COMPARISON: 02/04/2020 FINDINGS: Normal visualized distal femur. Normal visualized proximal tibia and fibula. Normal proximal tibiofibular articulation. There is severe degenerative arthrosis of the medial femorotibial compartment with severe joint space narrowing. There is severe degenerative arthrosis of the lateral femorotibial compartment with severe joint space narrowing. There is moderate degenerative arthrosis of the patellofemoral articulation. The soft tissue structures are unremarkable. RAD/Knee 4 or More Views IMPRESSION: Degenerative arthrosis. Electronically Signed: Enrike Cary MD at 16:50 EDT ,
== END | disposition home or self-care (01) ==
LOC: RAD 09:14
PROVIDERS: PCP Preventive Medicine Occupational Medicine; Visit Provider Nurse Practitioner Family
DX: M25.561 Pain in right knee (principal)
CPT/HCPCS: 73564

== ENCOUNTER 2022-05-24 06:08 | Day surgery (SDC) | payer MEDICAID, SELFPAY ==
[2022-05-24] MEDS: Lactated Ringers 1,000 ML 15 ML IV (06:35)
[2022-05-24 06:51] VITALS: BP 137/77; PULSE 89; RESP 18; TEMP 36.1; O2SAT 99; BMI 47.2
--- NOTE | 2022-05-24 07:00 | RAD_ITS ---
PROCEDURE: Left L4-S1 radiofrequency ablation. DATE OF EXAMINATION: 05/24/2022. INDICATION: Female, 72 years old. Chronic low back pain. FLUOROSCOPY TIME (if supplied): (28 seconds) minutes/seconds. 14.49 mGy RAD/Lumbar Spine 2 or 3 Views IMPRESSION: Intraoperative imaging provided for left L4-S1 radiofrequency ablation. Electronically Signed: Dwight Cleary MD at 8:33 EST ,
[2022-05-24 07:30] LABS: Bedside Glucose 213 mg/dL (74-106)
[2022-05-24] MEDS: Lidocaine 1% (30 ml sdv) 30 ML Vial (08:12)
[2022-05-24] MEDS: MethylPREDNISolone Acetate 40 MG/ML Vial IM (08:12)
--- NOTE | 2022-05-24 08:23 | PCM.OPRPT ---
Report of Operation Date of Procedure: 05/24/22 Pre-Operative Diagnosis: Lumbosacral spondylosis, lumbosacral degenerative disc disease, lumbar facet arthropathy Post-Operative Diagnosis: Lumbosacral spondylosis, lumbosacral degenerative disc disease, lumbar facet arthropathy Surgery/Procedure Performed:: Left-sided lumbar radiofrequency ablation of the medial branch L4, L5, S1 Type of Anesthesia: MAC Estimated Blood Loss (mL): Minimal Description of Procedure: History and physical today was reviewed. Risks and benefits of procedure explained. The patient understood, agreed to the procedure and informed consent was obtained. IV inserted per routine protocol. The patient was taken to the operating room, placed in the prone position with a pillow positioned underneath the abdomen. The left side of the lower back was prepped and draped in a sterile fashion using iodine x 3. Under fluoroscopy guidance, on an oblique view, the L3 through S1 vertebral bodies were visualized. The skin and subcutaneous tissue was anesthetized with approximately 10 mL of 1% lidocaine using a 25-gauge regular needle. Under direct visualization with fluoroscopy at approximately 25-degree angle, starting on the left L3, ending on the left S1 passing through the L4-L5 using a 20-gauge 15 cm with a 10 mm curved active tip radiofrequency ablation needle the needle passed through the skin. The tip of the needle was maneuvered and directed towards the superior and medial gutter of the transverse process at the vicinity of the medial branch. Once the tip of the needle was in contact with the bone, the needle pulled approximately 2 mm up the bone. The stylet of each needle was then removed. After negative aspiration of blood with CSF and confirmation of AP as well as oblique view, radiofrequency ablation probe was then inserted at each level. Impedance was then recorded at L3 to be 217, at L4 294, at L5 297, at S1 320 ohm. Motor-evoked potential was then initiated to 1.5 volt without any motor response at each corresponding level. The probe was then removed intact and a total of 6 mL preservative-free 1% lidocaine was injected in divided doses between those 4 levels after negative aspiration of blood with CSF. The radiofrequency ablation probe was then reinserted after confirmation of AP, oblique as well as lateral view. Radiofrequency ablation was then initiated to 80 degrees Celsius for 90 seconds at each level. Once concluded, the probe was then removed intact and a total of 6 mL of preservative-free 0.25% Marcaine with 40 mg Depo-Medrol was injected in divided doses between those 4 levels. The needles were then removed intact. The patient experienced no signs or symptoms of intrathecal, intravascular injection. The patient experienced no paraesthesia. The procedure was completed without any apparent difficulty, any complication. The patient appeared to tolerate well. Sensory as well as motor exam was unchanged from prior to procedure. ASSESSMENT AND PLAN: This is a 72-year-old female with lumbosacral spondylosis, lumbosacral degenerative disc disease, lumbar facet arthropathy, status post left-sided lumbar radiofrequency ablation of the medial branch L4 through S1. The patient will continue her current medications. The patient will follow up in approximately 2 weeks for reevaluation. Complications None
[2022-05-24 08:30] VITALS: BP 131/79; BP 137/77; PULSE 67; RESP 16; TEMP 37.1; O2SAT 97
[2022-05-24 08:35] VITALS: BP 127/74; BP 137/77; PULSE 67; RESP 16; O2SAT 97
[2022-05-24 08:40] VITALS: BP 116/81; BP 137/77; PULSE 65; RESP 16; O2SAT 95
[2022-05-24 08:45] VITALS: BP 106/86; BP 137/77; PULSE 68; RESP 16; TEMP 36.2; O2SAT 94
[2022-05-24 08:52] VITALS: BP 137/77
== END 2022-05-24 09:38 | disposition home or self-care (01) ==
LOC: SDC 06:09 → AC 06:10
PROVIDERS: PCP Preventive Medicine Occupational Medicine; Referring Provider Preventive Medicine Occupational Medicine; Visit Provider Anesthesiology Pain Medicine
PROC: (CPT 64635; principal; 2022-05-24 07:55)
DX: M47.816 Spondylosis without myelopathy or radiculopathy, lumbar region (principal); J44.9 Chronic obstructive pulmonary disease, unspecified; F31.9 Bipolar disorder, unspecified; M51.37 Other intervertebral disc degeneration, lumbosacral region; M47.817 Spondylosis without myelopathy or radiculopathy, lumbosacral region; I10 Essential (primary) hypertension; E78.5 Hyperlipidemia, unspecified; Z86.711 Personal history of pulmonary embolism; F17.200 Nicotine dependence, unspecified, uncomplicated; I25.10 Atherosclerotic heart disease of native coronary artery without angina pectoris
CPT/HCPCS: 64635; 64636; 72100; 76000; 82962; J7120

== ENCOUNTER → 2022-05-31 | Outpatient (CLI) | payer MEDICAID, SELFPAY ==
[2022-05-31 14:48] LABS: Hemoglobin 12.9 g/dL (12.0-15.0); Mean Corp Hgb Conc 32.3 g/dL (32-36); Mean Corpuscular Hgb 28.7 pg (27.0-32.0); Mean Corpuscular Volume 89.1 fL (81-99); Mean Platelet Vol. 9.6 fl (6.2-12.0); Platelet Count 265 K/mm3 (150-450); RBC Distribution Width CV 15.6 % (11.6-14.6); RBC Distribution Width SD 51.1 fl (35.1-43.9); Red Blood Count 4.49 M/mm3 (4.2-5.4); White Blood Count 10.3 K/mm3 (4.4-11.0)
[2022-05-31 15:23] LABS: Microalbumin,Random Urine < 5.0 mg/L (NO RANGE EST.)
[2022-05-31 15:30] LABS: AST(SGOT) 11 U/L (15-37); Alanine Aminotransfer ALT/SGPT 23 U/L (13-56); Albumin, Serum 3.5 g/dL (3.2-5.0); Alkaline Phosphatase 127 U/L (45-117); Anion Gap 7 (5-15); BUN 14 mg/dL (7-18); BUN/Creat Ratio 14.7 RATIO (10-20); Calcium,Total 8.8 mg/dL (8.5-10.1); Chloride 108 mmol/L (98-107); Cholesterol 220 mg/dL (200); Creatinine, Serum 0.95 mg/dL (0.55-1.02); EST Glomerular Filtration Rate 61 mL/min (>60); Est Glom Filt Rate - Afr Amer 74 mL/min (>60); Globulin 3.6 g/dL (2.2-4.2); Glucose 110 mg/dL (74-106); High Density Lipoprotein 31 mg/dL; Potassium 4.8 mmol/L (3.5-5.1); Protein, Total 7.1 g/dL (6.4-8.2); Sodium Level 136 mmol/L (136-145); Thyroid Stim Hormone (TSH) 2.92 uIU/mL (0.358-3.74); Triglycerides 300 mg/dL; Very Low Density Lipoprotein 60 mg/dL (5-40)
== END | disposition home or self-care (01) ==
PROVIDERS: PCP Preventive Medicine Occupational Medicine; Referring Provider Preventive Medicine Occupational Medicine; Visit Provider Preventive Medicine Occupational Medicine
DX: E78.2 Mixed hyperlipidemia (principal); E11.9 Type 2 diabetes mellitus without complications; I10 Essential (primary) hypertension
CPT/HCPCS: 36415; 80053; 80061; 82043; 82570; 84443; 85027

== ENCOUNTER → 2022-06-17 | Outpatient (CLI) | payer MEDICAID, SELFPAY ==
--- NOTE | 2022-06-17 13:08 | CT_ITS ---
STUDY: LOW DOSE CT LUNG CANCER SCREENING REASON FOR EXAM: Female, 72 years old. One pack per day smoker x56 years RADIATION DOSAGE (If Supplied By Facility): CTDIvol = ( 3.18 ) mGy, DLP = ( 102.44 ) mGycm TECHNIQUE: No contrast was administered. Low dose technique was utilized (average mAS-38 and kVp 120). 1.25 mm axial source images with a slice interval of 1.25-mm were reconstructed in lung windows. 2.5 mm axial source images with a slice interval of 2.5-mm were reconstructed in lung windows. 5.0 mm axial source images with a slice interval of 5.0-mm were reconstructed in soft tissue windows. COMPARISON: 07/13/2020 FINDINGS: Lung windows show nonspecific pleural thickening in the apices. Chronic interstitial changes noted in both lung rodriguez without organized infiltrate, effusion, or suspicious noncalcified mass or nodule. Limited soft tissue windows show a normal-appearing thyroid gland. Scattered subcentimeter, physiologic axillary mediastinal and perihilar lymph nodes. Calcified coronary vessels noted. Bony structures show degenerative change. Limited cuts through the upper abdomen do not show a suspicious abnormality CT/Low Dose CT Lung Screening IMPRESSION: Lung-RADS category 2 - Continue annual screening with LDCT in 12 months. IMPORTANT NOTES FOR USE: ACR Lung-RADS Version 1.1 Assessment Categories Release Date: 2018 Category: Coded 0-4 bases on nodule(s) with highest degree of suspicion. Negative screen is defined as categories 1 and 2; a positive screen is defined as categories 3 and 4. Category 3 and 4A nodules that are unchanged on interval CT should be coded as category 2, and individuals returned to screening in 12 months. Category 4X: Category 3 or 4 nodules with additional imaging findings that increase the suspicion of lung cancer, such as spiculation, GGN that doubles in size in 1 year, enlarged lymph notes, etc. Category Modifiers: S (significant finding unrelated to lung cancer) Electronically Signed: Mahendra Vo MD at 13:32 EDT ,
== END | disposition home or self-care (01) ==
LOC: CT 12:46
PROVIDERS: PCP Preventive Medicine Occupational Medicine; Referring Provider Nurse Practitioner Acute Care; Visit Provider Nurse Practitioner Acute Care
DX: F17.210 Nicotine dependence, cigarettes, uncomplicated (principal)
CPT/HCPCS: 71271

== ENCOUNTER 2022-07-19 11:49 | Day surgery (SDC) | payer MEDICAID, SELFPAY ==
[2022-07-19 12:15] VITALS: BP 119/87; PULSE 70; RESP 16; TEMP 36; O2SAT 94; BMI 47.0
[2022-07-19] MEDS: Lactated Ringers 1,000 ML 15 ML IV (12:25)
--- NOTE | 2022-07-19 13:15 | RAD_ITS ---
PROCEDURE: Caudal block. DATE OF EXAMINATION: July 19, 2022. INDICATION: Female, 72 years old. Chronic low back pain. FLUOROSCOPY TIME (if supplied): (9 seconds) minutes/seconds. 5.9 mGy. One image was submitted. RAD/Fluor Guidance for Spine Inj IMPRESSION: Intraoperative imaging provided for caudal block. Electronically Signed: Dwight Cleary MD at 14:45 EDT ,
[2022-07-19] MEDS: Lidocaine 1% (5 ml sdv) 5 ML Vial (13:22)
[2022-07-19] MEDS: MethylPREDNISolone Acetate 80 MG/ML Vial (13:22)
[2022-07-19] MEDS: 0.9% Normal Saline (Pres. free 10 ML Vial (13:22)
[2022-07-19 13:26] VITALS: BP 119/87; BP 98/44; PULSE 64; RESP 16; TEMP 36.5; O2SAT 94
[2022-07-19 13:30] VITALS: BP 119/87; BP 88/51; PULSE 65; RESP 16; O2SAT 94
[2022-07-19 13:35] VITALS: BP 103/53; BP 119/87; PULSE 65; RESP 16; O2SAT 92
[2022-07-19 13:42] VITALS: BP 102/54; BP 119/87; PULSE 66; RESP 16; TEMP 36.7; O2SAT 96
[2022-07-19 13:48] VITALS: BP 119/87
--- NOTE | 2022-07-19 15:00 | OP.PCM_ITS ---
Report of Operation Date of Procedure: 07/19/22 Pre-Operative Diagnosis: Lumbosacral radiculopathy, lumbosacral degenerative di sc disease, lumbosacral spinal stenosis Post-Operative Diagnosis: Lumbosacral radiculopathy, lumbosacral degenerative disc disease, lumbosacral spinal stenosis Surgery/Procedure Performed:: Caudal epidural steroid injection under fluoroscopic guidance Type of Anesthesia: MAC Estimated Blood Loss (mL): Minimal Description of Procedure: DESCRIPTION OF PROCEDURE: History and physical of today was reviewed. Risks and benefits of the procedure were explained. The patient understood and agreed to proceed. Informed consent was obtained. IV inserted per routine protocol. The patient was taken to the operating room and placed in the prone position with a pillow positioned underneath the abdomen. The lower back and tailbone area was prepped and draped in a sterile fashion using iodine x3. Under fluoroscopy guidance on a lateral view, the caudal space was identified. The skin and subcutaneous tissue was anesthetized with approximately 3 mL of 1% lidocaine using a 25-gauge regular needle. Under direct visualization with fluoroscopy, using a 22-gauge 3-1/2-inch spinal needle, the needle was advanced via the skin through the sacral hiatus. The tip of the needle was passed through the sacrococcygeal ligament and advanced to approximately S4 area. After negative aspiration of blood or CSF, a total of 3 mL of contrast was injected to confirm correct placement of the needle as well as cephalad spread. The spread was followed to approximately L5 area. After confirmation on AP as well as lateral view and repeated negative aspiration, a total of 15 mL of preservative-free 0.125% Marcaine with 80 mg of Depo-Medrol was injected easily. The needle was then removed intact. The patient experienced no sign or symptoms of intrathecal or intravascular injection. The patient experienced no paresthesia. The procedure was completed without any apparent difficulty or any complications. The patient appeared to tolerate it well. ASSESSMENT AND PLAN: This is a 72-year-old female with lumbosacral radiculopathy, lumbosacral degenerative disc disease, lumbosacral spinal stenosis status post caudal epidural steroid injection, patient will continue her current medications, patient will follow in approximately 2 weeks for reevaluation. Complications None
[2022-07-19 15:11] LABS: Bedside Glucose 123 mg/dL (74-106)
== END 2022-07-19 14:23 | disposition home or self-care (01) ==
LOC: SDC 11:51 → AC 11:51
PROVIDERS: PCP Preventive Medicine Occupational Medicine; Referring Provider Anesthesiology Pain Medicine; Visit Provider Anesthesiology Pain Medicine
PROC: 3E0S3BZ Introduction of Anesthetic Agent into Epidural Space, Percutaneous Approach (ICD-10-PCS; CPT 62282; principal; 2022-07-19 13:25)
DX: M48.07 Spinal stenosis, lumbosacral region (principal); J44.9 Chronic obstructive pulmonary disease, unspecified; F31.9 Bipolar disorder, unspecified; M51.17 Intervertebral disc disorders with radiculopathy, lumbosacral region; I10 Essential (primary) hypertension; Z86.711 Personal history of pulmonary embolism; E78.5 Hyperlipidemia, unspecified; Z86.79 Personal history of other diseases of the circulatory system; Z94.7 Corneal transplant status; Z87.891 Personal history of nicotine dependence
CPT/HCPCS: 62323; 64483; 77003; 82962; J7120; J3490

== ENCOUNTER 2022-12-20 09:26 | Day surgery (SDC) | payer MEDICAID, SELFPAY ==
[2022-12-20] MEDS: Lactated Ringers 1,000 ML 15 ML IV (10:14)
[2022-12-20 10:15] VITALS: BP 122/69; PULSE 66; RESP 18; TEMP 36.9; O2SAT 95; BMI 45.7
[2022-12-20 10:39] LABS: Bedside Glucose 149 mg/dL (74-106)
[2022-12-20] MEDS: 0.9% Normal Saline (Pres. free 10 ML Vial (10:56)
--- NOTE | 2022-12-20 11:10 | RAD_ITS ---
PROCEDURE: Caudal block. DATE OF EXAMINATION: December 20, 2022. INDICATION: Female, 72 years old. Chronic low back pain. FLUOROSCOPY TIME (if supplied): (8 seconds) minutes/seconds. 7.43 mGy. One image was submitted. RAD/Fluor Guidance for Spine Inj IMPRESSION: Intraoperative fluoroscopic imaging provided for caudal block. Electronically Signed: Dwight Cleary MD at 8:57 EDT ,
[2022-12-20] MEDS: MethylPREDNISolone Acetate 80 MG/ML Vial (11:16)
[2022-12-20] MEDS: Lidocaine 1% (5 ml sdv) 5 ML Vial (11:16)
--- NOTE | 2022-12-20 11:22 | OP.PCM_ITS ---
Report of Operation Date of Procedure: 12/20/22 Pre-Operative Diagnosis: Lumbosacral radiculopathy, lumbosacral degenerative di sc disease, lumbosacral spinal stenosis Post-Operative Diagnosis: Lumbosacral radiculopathy, lumbosacral degenerative disc disease, lumbosacral spinal stenosis Surgery/Procedure Performed:: Diagnostic/therapeutic caudal epidural steroid injection under fluoroscopic guidance Type of Anesthesia: MAC Estimated Blood Loss (mL): Minimal Description of Procedure: DESCRIPTION OF PROCEDURE: History and physical of today was reviewed. Risks and benefits of the procedure were explained. The patient understood and agreed to proceed. Informed consent was obtained. IV inserted per routine protocol. The patient was taken to the operating room and placed in the prone position with a pillow positioned underneath the abdomen. The lower back and tailbone area was prepped and draped in a sterile fashion using iodine x3. Under fluoroscopy guidance on a lateral view, the caudal space was identified. The skin and subcutaneous tissue was anesthetized with approximately 3 mL of 1% lidocaine using a 25-gauge regular needle. Under direct visualization with fluoroscopy, using a 22-gauge 3-1/2-inch spinal needle, the needle was advanced via the skin through the sacral hiatus. The tip of the needle was passed through the sacrococcygeal ligament and advanced to approximately S4 area. After negative aspiration of blood or CSF, a total of 3 mL of contrast was injected to confirm correct placement of the needle as well as cephalad spread. The spread was followed to approximately L5 area. After confirmation on AP as well as lateral view and repeated negative aspiration, a total of 15 mL of preservative-free 0.125% Marcaine with 80 mg of Depo-Medrol was injected easily. The needle was then removed intact. The patient experienced no sign or symptoms of intrathecal or intravascular injection. The patient experienced no paresthesia. The procedure was completed without any apparent difficulty or any complications. The patient appeared to tolerate it well. ASSESSMENT AND PLAN: This is a 72-year-old female with lumbosacral radiculopathy, lumbosacral degenerative disc disease, lumbosacral spinal stenosis status post diagnostic/therapeutic caudal epidural steroid injection, patient will continue her current medications, patient will follow in approximately 2 weeks for reevaluation. Complications None
[2022-12-20 11:25] VITALS: BP 112/61; BP 122/69; PULSE 70; RESP 16; TEMP 36.6; O2SAT 100
[2022-12-20 11:30] VITALS: BP 112/61; BP 122/69; PULSE 70; RESP 16; O2SAT 99
[2022-12-20 11:35] VITALS: BP 116/67; BP 122/69; PULSE 68; RESP 16; O2SAT 99
[2022-12-20 11:40] VITALS: BP 121/73; BP 122/69; PULSE 71; RESP 16; TEMP 36.6; O2SAT 99
[2022-12-20 12:20] VITALS: BP 122/69
== END 2022-12-20 12:29 | disposition home or self-care (01) ==
LOC: SDC 09:28 → AC 09:29
PROVIDERS: PCP Preventive Medicine Occupational Medicine; Referring Provider Anesthesiology Pain Medicine; Visit Provider Anesthesiology Pain Medicine
PROC: 3E0S3BZ Introduction of Anesthetic Agent into Epidural Space, Percutaneous Approach (ICD-10-PCS; CPT 62282; principal; 2022-12-20 11:15)
DX: M48.07 Spinal stenosis, lumbosacral region (principal); J44.9 Chronic obstructive pulmonary disease, unspecified; I50.30 Unspecified diastolic (congestive) heart failure; I11.0 Hypertensive heart disease with heart failure; M51.17 Intervertebral disc disorders with radiculopathy, lumbosacral region; Z86.711 Personal history of pulmonary embolism; E78.5 Hyperlipidemia, unspecified; F17.210 Nicotine dependence, cigarettes, uncomplicated; Z94.7 Corneal transplant status
CPT/HCPCS: 62323; 64483; 77003; 82962; J7120; J3490

== ENCOUNTER → 2022-12-23 | Outpatient (CLI) | payer MEDICAID, SELFPAY ==
--- NOTE | 2022-12-23 09:38 | BI_ITS ---
MAMMOGRAPHY - BILATERAL SCREENING REASON FOR EXAM: Female, 72 years old. Routine annual screening examination. PERTINENT HISTORY: Non-contributory. History of prior left breast biopsy. TECHNIQUE: Digital bilateral breast valerie (3D mammographic acquisition) in the CC and MLO projections. 2-D mediolateral oblique (MLO) and craniocaudad (CC) views of both breasts were obtained. CAD: Full Field Digital Mammography with Computer Added Detection was performed. COMPARISON: Comparison is made with prior study dated October 16, 2019 and March 09, 2018. FINDINGS: Breast Composition: The breasts are heterogeneously dense, which may obscure small masses. There are no dominant masses or suspicious calcifications. Small bilateral axillary lymph nodes. No other significant abnormalities are identified. There has been no significant change since the prior study. BI/SCRN MAMM (CAD)W/VALERIE BILAT IMPRESSION: Stable bilateral screening mammogram. Yearly follow-up mammogram recommended. (A) ASSESSMENT CATEGORY: BIRADS Category 2: Benign. A letter regarding these results will be sent to the patient by the facility within 30 days. Approximately 10% of breast cancers are not detected by mammography. A normal mammogram should not delay biopsy of a clinically suspicious abnormality. [id number] Electronically Signed: Dwight Cleary MD at 11:34 EDT ,
--- NOTE | 2022-12-23 09:56 | BD_ITS ---
STUDY: DUAL ENERGY X-RAY ABSORPTIOMETRY / DXA REASON FOR EXAM: Female, 72 years old. [id number] TECHNIQUE: Bone Mineral Density (BMD) measurements of lumbar spine and bilateral hips were obtained. COMPARISON: None. FINDINGS: Lumbar Spine (L1-L4): g/cm2 (1.070) / T-score (0.3) / Z-score (2.7) Findings are suggestive of normal bone density with a low fracture risk. Left Femur Total: g/cm2 (0.835) / T-score (-0.9) / Z-score (0.9) Left Femoral Neck: g/cm2 (0.628) / T-score (-2.0) / Z-score (0.1) Right Femur Total: g/cm2 (0.789) / T-score (-1.3) / Z-score (0.5) Right Femoral Neck: g/cm2 (0.555) / T-score (-2.6) / Z-score (-0.6) BD/Dexa Bone Density Study IMPRESSION: The patient is considered osteoporotic as outlined below according to World Felix Organization (WHO) criteria with a high fracture risk. Reference Information: The T-score is the number of standard deviations above or below the standard which is normal for young adults at their peak bone mineral density. The World Health Organization (WHO) interprets the T-scores as follows: Above -1 Normal bone density Between -1 and -2.5 Osteopenia Equal to / or below -2.5 Osteoporosis As a practical clinical guideline, osteopenia may be graded as follows: Mild -1 through -1.5 Moderate -1.6 through -2.0 Severe -2.1 through -2.4 The Z-score is the number of standard deviations above or below age-matched controls. A Z-score of less than -1.5 would be considered abnormal. References: 1. NIH Osteoporosis and Related Bone Diseases www osteo.org 2. International Society for Clinical Densitometry www iscd.org 3. National Osteoporosis Foundation www nof.org Electronically Signed: Dwight Cleary MD at 14:11 EDT ,
== END | disposition home or self-care (01) ==
LOC: OPBD 09:37
PROVIDERS: PCP Preventive Medicine Occupational Medicine; Referring Provider Preventive Medicine Occupational Medicine; Visit Provider Preventive Medicine Occupational Medicine
DX: Z12.31 Encounter for screening mammogram for malignant neoplasm of breast (principal); Z78.0 Asymptomatic menopausal state
CPT/HCPCS: 77063; 77067; 77080

== ENCOUNTER 2022-12-25 13:52 | Day surgery (SDC) | payer MEDICAID, SELFPAY ==
[2022-12-25] VITALS (8 sets, daily range): BP systolic 97–146; BP diastolic 51–76; PULSE 65–88; RESP 16–18; TEMP 36.3–37.1; O2SAT 97–99; BMI 45.6
--- NOTE | 2022-12-25 15:34 | EX.ED.DYSGE1 ---
HPI History of Present Illness Chief Complaint: Foreign Body Narrative Narrative: Patient presents with an esophageal impaction for right around 6 hours. She was making pulled pork, the pork was not fully pulled and she tried a tasted, she developed esophageal impaction that she cannot relief. No prior history. [facility] Medical History (HFpEF) heart failure with preserved ejection fraction (07/13/20) Ambulates with cane Anasarca Anxiety Bilateral sacroiliitis Bipolar disorder Bipolar disorder Cardiology follow-up encounter Chronic cough COPD (chronic obstructive pulmonary disease) Degeneration of intervertebral disc of lumbosacral region Depression Diabetes Dietary restriction Essential (primary) hypertension Fall High cholesterol History of CHF (congestive heart failure) History of diverticulitis History of echocardiogram History of edema History of pulmonary embolus (PE) (07/13/20) Hyperlipidemia Hypertension Migraine headache Nicotine dependence Pericardial effusion without cardiac tamponade (07/13/20) Sacrococcygeal disorders, not elsewhere classified Shortness of breath on exertion Smoker Spondylosis of lumbosacral region without myelopathy or radiculopathy Home Medications docusate sodium 100 mg capsule (DOK) 100 mg PO BID 12/14/17 [History Last Taken 01/06/20] escitalopram oxalate 10 mg tablet 10 mg PO QHS 12/14/17 [History Last Taken 01/06/20] quetiapine 400 mg tablet (Seroquel) 600 mg PO QHS 12/14/17 [History Last Taken 01/06/20] tizanidine 4 mg tablet 4 mg PO BID 12/14/17 [History Last Taken 01/06/20] cetirizine 10 mg capsule 10 mg PO QODAY 03/16/19 [History Last Taken 01/06/20] metformin 500 mg tablet 500 mg PO BIDCM ##0 07/15/20 [Rx Last Taken 01/06/20] lisinopril 5 mg tablet 5 mg PO LUNCH #30 tabs 08/12/20 [Rx Last Taken 01/04/22] bisacodyl 5 mg tablet,delayed release 10 mg PO DAILY 08/22/20 [History Last Taken Unknown] buspirone 10 mg tablet 10 mg PO TID PRN Anxiety 08/22/20 [History Last Taken Unknown] atenolol 50 mg tablet 50 mg PO BID 09/11/20 [History Last Taken 12/20/22] amlodipine 5 mg tablet 5 mg PO DAILY 12/23/20 [History Last Taken 11/16/21] buprenorphine 7.5 mcg/hour weekly transdermal patch (Butrans) 1 patch transdermal QWEEK 10/27/21 [History Last Taken 12/18/22] gabapentin 800 mg tablet 800 mg PO TID 10/28/21 [History Last Taken Unknown] multivitamin with folic acid 400 mcg tablet (Daily-Dmitri (with folic acid)) 1 tab PO DAILY 05/31/22 [History Last Taken Unknown] quetiapine 200 mg tablet 200 mg PO DAILY 05/31/22 [History Last Taken Unknown] sumatriptan succinate 100 mg tablet 100 mg PO Q2H PRN migraines 05/31/22 [History Last Taken Unknown] ezetimibe 10 mg tablet 10 mg PO DAILY 06/10/22 [History Last Taken Unknown] albuterol sulfate 90 mcg/actuation aerosol inhaler 2 puff inhalation Q6H PRN shortness of breath or wheezing #8.5 grams 07/23/22 [Rx Last Taken Unknown] umeclidinium 62.5 mcg-vilanterol 25 mcg/actuation powdr for inhalation (Anoro Ellipta) 1 inh inhalation QDAY #60 ea 07/23/22 [Rx Last Taken 12/20/22] diclofenac sodium 100 mg tablet,extended release 24 hr 100 mg PO DAILY PRN arthritis pain 12/15/22 [History Last Taken Unknown] hydroxyzine HCl 25 mg tablet 25 mg PO BID PRN anxiety 12/15/22 [History Last Taken Unknown] Allergy/AdvReac Type Severity Reaction Status Date / Time hydrocodone AdvReac NEEDS Verified 12/25/22 14:16 FOLLOW-UP oxycodone AdvReac NEEDS Verified 12/25/22 14:16 FOLLOW-UP [id number] Reductase AdvReac Constipatio Verified 12/25/22 14:16 Inhibitor n Family History (Reviewed 07/23/22 @ 10:08 by Coral Clemons EXECUTIVE CHAIRMAN OF THE BOARD, EXECUTIVE CHAIRMAN OF [employer]ARD-C) Mother Schizophrenia Sister Depression Sister Depression Surgical History Corneal transplant status History of cataract surgery History of knee replacement History of lumbar surgery History of tubal ligation Hx of tonsillectomy Social History (Reviewed 07/23/22 @ 10:08 by Coral Clemons EXECUTIVE 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 OF [employer], EXECUTIVE 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 OF [employer]ARD-C) household members: other details: lives with son Smoking Status: Current every day smoker tobacco type: cigarettes alcohol intake: never substance use type: does not use caffeine: Yes Type: coffee Number of servings: 1 and tea seatbelt use: sometimes do you feel safe at home: Yes ROS ROS ED ROS Narrative Past medical history: Reviewed Medications: Reviewed Social history: Noncontributory Review of systems: General: No fever Eyes: No visual changes ENT: No upper airway congestion, normal voice Neck: No neck pain Cardiovascular: No chest pain Respiratory: No shortness of breath or cough Gastrointestinal: As in HPI Genitourinary: No dysuria Musculoskeletal: Denies myalgias no difficulty with ambulation Skin: No rash EXAM Physical Exam Narrative Exam Narrative: Physical exam General: She appears somewhat uncomfortable Head: Normocephalic, Atraumatic Eyes: Conjunctiva not pale ENT: Moist mucous membranes Neck: Supple, Nontender, No lymphadenopathy Cardiovascular: Regular rate, Regular rhythm Respiratory: No distress, CTA bilaterally Abdomen: Soft, Nontender, Nondistended Back: Nontender, Normal Inspection. Negative for: CVA tenderness Extremities: Nontender, No edema Skin: Normal color, No rash Const Vital Signs: 12/25/22 14:16 Temperature 97.8 F Temperature Source Temporal Pulse Rate 68 Respiratory Rate 16 Blood Pressure 146/76 H Blood Pressure Mean 99 Pulse Ox 97 Oxygen Delivery Method Room Air MDM MDM MDM Narrative Medical decision making narrative: Patient is given glucagon, however she is unlikely to pass the impaction. I called Dr. Ram, she will need to go to the operating room for disimpaction. Otherwise she appears well, vitals are unremarkable she is not anticoagulated. I do not believe she needs blood work or any kind of imaging at this time. Discharge Plan Triage Chief Complaint: Foreign Body ED Provider: Joshua Aviles Dx/Rx/DC Orders Clinical Impression: Food impaction of esophagus, Diabetes, Hypertension Prescriptions: No Action amlodipine 5 mg tablet 5 mg PO DAILY gabapentin 800 mg tablet 800 mg PO TID buprenorphine [Butrans] 7.5 mcg/hour patch weekly 1 patch transdermal QWEEK quetiapine 200 mg tablet 200 mg PO DAILY multivitamin with folic acid [Daily-Dmitri (with folic acid)] 400 mcg tablet 1 tab PO DAILY sumatriptan succinate 100 mg tablet 100 mg PO Q2H PRN (Reason: migraines) ezetimibe 10 mg tablet 10 mg PO DAILY albuterol sulfate 90 mcg/actuation HFA aerosol inhaler 2 puff inhalation Q6H PRN (Reason: shortness of breath or wheezing) Qty: 8.5 6RF Anoro Ellipta 62.5-25 mcg/actuation blister with device 1 inh inhalation QDAY Qty: 60 5RF bisacodyl 5 mg tablet,delayed release (DR/EC) 10 mg PO DAILY Patient Comments: constipation tizanidine 4 MG tablet 4 mg PO BID docusate sodium [DOK] 100 MG capsule 100 mg PO BID escitalopram oxalate 10 MG tablet 10 mg PO QHS quetiapine [Seroquel] 400 MG tablet 600 mg PO QHS cetirizine 10 MG capsule 10 mg PO QODAY buspirone 10 mg tablet 10 mg PO TID PRN (Reason: Anxiety) metformin 500 MG tablet 500 mg PO BIDCM Qty: 0 0RF Patient Comments: diabetic medication Rx Instructions: resume 07/18/2020 diclofenac sodium 100 mg tablet extended release 24 hr 100 mg PO DAILY PRN (Reason: arthritis pain ) hydroxyzine HCl 25 mg tablet 25 mg PO BID PRN (Reason: anxiety) lisinopril 5 mg tablet 5 mg PO LUNCH Qty: 30 11RF atenolol 50 mg tablet 50 mg PO BID Primary Care Provider: Broderick Mi Referrals: Broderick Mi DO [Primary Care Provider] - Disposition Disposition: Acute Care [facility]
[2022-12-25] MEDS: Glucagon 1 MG/ML Syringe IV (16:01)
--- NOTE | 2022-12-25 17:21 | ED.RN ---
Extension set applied
--- NOTE | 2022-12-25 17:44 | ED.RN ---
Report to surgery
--- NOTE | 2022-12-25 17:50 | EGD_PTH ---
PATIENT: SILVIA ROSADO LOC: EN U#:[id number] AGE/SX: 72/F ROOM: RE12/25/[address]: Dr. Josh Ram DO : 1950 BED: DIS: 12/25/2022 SPEC #: [id number] RECD: 12/27/22 07:19 STATUS: LEOBARDO RENatali #: [id number] AMADO: 12/25/22 17:[address]: Josh Ram DEPT: SURGICAL PATHOLOGY RECD BY: Celine Leon ENTERED: 12/27/22 14:41 SP TYPE: EGD BIOPSY OTHR DR: Dr. Broderick Mi DO Tissues: Esophageal mucous membrane Procedures: Special Stain Group II Surgery Specimen Level IV Alcian Blue/PAS (control) HEADER OPERATION: EGD with foreign body removal and biopsy PRE-OP DIAGNOSIS: Foreign body TISSUE SUBMITTED: Distal esophagus MICROSCOPIC DIAGNOSIS Distal esophagus, biopsy: Gastroesophageal junctional mucosa with mild chronic inflammation. Changes of reflux. No evidence of goblet cell metaplasia. See comment. AM:carmine 12/28/2022 COMMENT Alcian blue/PAS stain with matched control supports the above diagnosis. MICROSCOPIC DESCRIPTION Slides are reviewed. GROSS DESCRIPTION Received in fixative is one container labeled with the patient's name and designated distal esophagus. The specimen consists of multiple irregular fragments of light prince soft tissue that in aggregate measure 0.5 x 0.5 x 0.1 cm. The specimen is totally submitted in one cassette. / SJ:carmine 12/27/2022 TC:3 CPT: 66724, 91681
--- NOTE | 2022-12-25 18:13 | PCM.HP.BLA ---
History and Physical Date of Admission: 12/25/22 72-year-old with history of gastroesophageal reflux disease not on antacids and with history of food impactions in the past presents with an esophageal impaction for right around 6 hours. She was making pulled pork, the pork was not fully pulled and she tried a tasted, she developed esophageal impaction that she cannot relief. No prior history. [facility] Medical History (HFpEF) heart failure with preserved ejection fraction (07/13/20) Ambulates with cane Anasarca Anxiety Bilateral sacroiliitis Bipolar disorder Bipolar disorder Cardiology follow-up encounter Chronic cough COPD (chronic obstructive pulmonary disease) Degeneration of intervertebral disc of lumbosacral region Depression Diabetes Dietary restriction Essential (primary) hypertension Fall High cholesterol History of CHF (congestive heart failure) History of diverticulitis History of echocardiogram History of edema History of pulmonary embolus (PE) (07/13/20) Hyperlipidemia Hypertension Migraine headache Nicotine dependence Pericardial effusion without cardiac tamponade (07/13/20) Sacrococcygeal disorders, not elsewhere classified Shortness of breath on exertion Smoker Spondylosis of lumbosacral region without myelopathy or radiculopathy Home Medications docusate sodium 100 mg capsule (DOK) 100 mg PO BID 12/14/17 [History Last Taken 01/06/20] escitalopram oxalate 10 mg tablet 10 mg PO QHS 12/14/17 [History Last Taken 01/06/20] quetiapine 400 mg tablet (Seroquel) 600 mg PO QHS 12/14/17 [History Last Taken 01/06/20] tizanidine 4 mg tablet 4 mg PO BID 12/14/17 [History Last Taken 01/06/20] cetirizine 10 mg capsule 10 mg PO QODAY 03/16/19 [History Last Taken 01/06/20] metformin 500 mg tablet 500 mg PO BIDCM ##0 07/15/20 [Rx Last Taken 01/06/20] lisinopril 5 mg tablet 5 mg PO LUNCH #30 tabs 08/12/20 [Rx Last Taken 01/04/22] bisacodyl 5 mg tablet,delayed release 10 mg PO DAILY 08/22/20 [History Last Taken Unknown] buspirone 10 mg tablet 10 mg PO TID PRN Anxiety 08/22/20 [History Last Taken Unknown] atenolol 50 mg tablet 50 mg PO BID 09/11/20 [History Last Taken 12/20/22] amlodipine 5 mg tablet 5 mg PO DAILY 12/23/20 [History Last Taken 11/16/21] buprenorphine 7.5 mcg/hour weekly transdermal patch (Butrans) 1 patch transdermal QWEEK 10/27/21 [History Last Taken 12/18/22] gabapentin 800 mg tablet 800 mg PO TID 10/28/21 [History Last Taken Unknown] multivitamin with folic acid 400 mcg tablet (Daily-Dmitri (with folic acid)) 1 tab PO DAILY 05/31/22 [History Last Taken Unknown] quetiapine 200 mg tablet 200 mg PO DAILY 05/31/22 [History Last Taken Unknown] sumatriptan succinate 100 mg tablet 100 mg PO Q2H PRN migraines 05/31/22 [History Last Taken Unknown] ezetimibe 10 mg tablet 10 mg PO DAILY 06/10/22 [History Last Taken Unknown] albuterol sulfate 90 mcg/actuation aerosol inhaler 2 puff inhalation Q6H PRN shortness of breath or wheezing #8.5 grams 07/23/22 [Rx Last Taken Unknown] umeclidinium 62.5 mcg-vilanterol 25 mcg/actuation powdr for inhalation (Anoro Ellipta) 1 inh inhalation QDAY #60 ea 07/23/22 [Rx Last Taken 12/20/22] diclofenac sodium 100 mg tablet,extended release 24 hr 100 mg PO DAILY PRN arthritis pain 12/15/22 [History Last Taken Unknown] hydroxyzine HCl 25 mg tablet 25 mg PO BID PRN anxiety 12/15/22 [History Last Taken Unknown] Allergy/AdvReac Type Severity Reaction Status Date / Time hydrocodone AdvReac NEEDS Verified 12/25/22 14:16 FOLLOW-UP oxycodone AdvReac NEEDS Verified 12/25/22 14:16 FOLLOW-UP [id number] Reductase AdvReac Constipatio Verified 12/25/22 14:16 Inhibitor n Family History (Reviewed 07/23/22 @ 10:08 by Coral Clemons DERMATOLOGICAL SURGEON, DERMATOLOGICAL SURGEON-C) Mother SchizophreniaSister DepressionSister Depression Surgical History Corneal transplant status History of cataract surgery History of knee replacement History of lumbar surgery History of tubal ligation Hx of tonsillectomy Social History (Reviewed 07/23/22 @ 10:08 by Coral Clemons DERMATOLOGICAL SURGEON, DERMATOLOGICAL SURGEON-C) household members: other details: lives with son Smoking Status: Current every day smoker tobacco type: cigarettes alcohol intake: never substance use type: does not use caffeine: Yes Type: coffee Number of servings: 1 and tea seatbelt use: sometimes do you feel safe at home: Yes ROS ROS ED ROS Narrative Past medical history: Reviewed Medications: Reviewed Social history: Noncontributory Review of systems: General: No fever Eyes: No visual changes ENT: No upper airway congestion, normal voice Neck: No neck pain Cardiovascular: No chest pain Respiratory: No shortness of breath or cough Gastrointestinal: As in HPI Genitourinary: No dysuria Musculoskeletal: Denies myalgias no difficulty with ambulation Skin: No rash EXAM Physical Exam Narrative Exam Narrative: Physical exam General: She appears somewhat uncomfortable Head: Normocephalic, Atraumatic Eyes: Conjunctiva not pale ENT: Moist mucous membranes Neck: Supple, Nontender, No lymphadenopathy Cardiovascular: Regular rate, Regular rhythm Respiratory: No distress, CTA bilaterally Abdomen: Soft, Nontender, Nondistended Back: Nontender, Normal Inspection. Negative for: CVA tenderness Extremities: Nontender, No edema Skin: Normal color, No rash Const Vital Signs: 12/25/2313:16 Temperature 97.8 F Temperature Source Temporal Pulse Rate 68 Respiratory Rate 16 Blood Pressure 146/76 H Blood Pressure Mean 99 Pulse Ox 97 Oxygen Delivery Method Room Air Assessment & Plan Assessment/Plan (1) Food impaction of esophagus: QUALIFIERS: Encounter type: initial encounter Qualified Code(s): T18.128A - Food in esophagus causing other injury, initial encounter PLAN: She will undergo an EGD with foreign body removal. She was explained alternatives, risk, benefits including outstanding bleeding, infection, sepsis, perforation, need for mergers and . She will have an ASA of 3.
--- NOTE | 2022-12-25 18:45 | OP.EGD_ITS ---
Patient Name: Magaly Madrigal Procedure Date: 12/25/2022 5:41 PM Date of : 1950 Age: 72 Procedure: Upper GI endoscopy Indications: Dysphagia Providers: Josh Ram DO Medicines: Monitored Anesthesia Care Patient Profile: This is a 72 year old female. Refer to note in patient chart for documentation of history and physical. Patient has symptoms of dysphagia with solids. Complications: No immediate complications. Procedure: Pre-Anesthesia Assessment: - Prior to the procedure, a History and Physical was performed, and patient medications and allergies were reviewed. The patient is competent. The risks and benefits of the procedure and the sedation options and risks were discussed with the patient. All questions were answered and informed consent was obtained. Patient identification and proposed procedure were verified by the physician in the pre-procedure area. Mental Status Examination: alert and oriented. Airway Examination: normal oropharyngeal airway and neck mobility. Respiratory Examination: clear to auscultation. CV Examination: normal. Prophylactic Antibiotics: The patient does not require prophylactic antibiotics. Prior Anticoagulants: The patient has taken no anticoagulant or antiplatelet agents. ASA Grade Assessment: III - A patient with severe systemic disease. After reviewing the risks and benefits, the patient was deemed in satisfactory condition to undergo the procedure. The anesthesia plan was to use monitored anesthesia care (MAC). Immediately prior to administration of medications, the patient was re-assessed for adequacy to receive sedatives. The heart rate, respiratory rate, oxygen saturations, blood pressure, adequacy of pulmonary ventilation, and response to care were monitored throughout the procedure. The physical status of the patient was re-assessed after the procedure. After obtaining informed consent, the endoscope was passed under direct vision. Throughout the procedure, the patient's blood pressure, pulse, and oxygen saturations were monitored continuously. The Endoscope was introduced through the mouth, and advanced to the second part of duodenum. Scope In: 6:26:26 PM Scope Out: 6:38:35 PM Total Procedure Duration Time 0 hours 12 minutes 9 seconds Findings: A severe Schatzki ring was found in the lower third of the esophagus. A guidewire was placed and the scope was withdrawn. Dilation was performed with a Savary dilator with no resistance at 42 Fr. The dilation site was examined and showed mild mucosal disruption. Estimated blood loss was minimal. The Z-line was irregular and was found 39 cm from the incisors. Biopsies were taken with a cold forceps for histology. Verification of patient identification for the specimen was done. Estimated blood loss: none. Food was found in the middle third of the esophagus. Removal was accomplished with a Jackson net. Verification of patient identification for the specimen was done. Estimated blood loss was minimal. A medium-sized hiatal hernia was present. Food (residue) was found in the duodenal bulb. Impression: - Severe Schatzki ring. Dilated. - Z-line irregular, 39 cm from the incisors. Biopsied. - Food in the middle third of the esophagus. Removal was successful. - Medium-sized hiatal hernia. - Retained food in the duodenum. Recommendation: - Discharge patient to home. - Full liquid diet today. - Use Protonix (pantoprazole) 20 mg PO BID. - Continue present medications. Procedure Code(s): --- Professional --- 89535, Esophagogastroduodenoscopy, flexible, transoral; with removal of foreign body(s) 75954, 51, Esophagogastroduodenoscopy, flexible, transoral; with insertion of guide wire followed by passage of dilator(s) through esophagus over guide wire 11253, 59, Esophagogastroduodenoscopy, flexible, transoral; with biopsy, single or multiple CPT copyright 2021 [employer] [employer]. All rights reserved. The codes documented in this report are preliminary and upon lowerator operator review may be revised to meet current compliance requirements. Josh Ram DO 12/25/2022 6:44:09 PM This report has been signed electronically. Number of Addenda: 0 Note Initiated On: 12/25/2022 5:41 PM
--- NOTE | 2022-12-25 18:45 | OP.CCLET_ITS ---
12/25/2022 Broderick Mi [address] [place] [address] Re : Upper GI endoscopy procedure for Magaly Madrigal Dear Dr. Mi This procedure was performed on Sunday, December 25, 2022. My impressions and recommendations are as follows: Impressions : - Severe Schatzki ring. Dilated. - Z-line irregular, 39 cm from the incisors. Biopsied. - Food in the middle third of the esophagus. Removal was successful. - Medium-sized hiatal hernia. - Retained food in the duodenum. Recommendations : - Discharge patient to home. - Full liquid diet today. - Use Protonix (pantoprazole) 20 mg PO BID. - Continue present medications. My findings are described in the full procedure note, which is enclosed. If I can be of further assistance, please feel free to contact me at . Sincerely, Josh Ram, 12/25/2022 6:44:09 PM This report has been signed electronically.
== END 2022-12-25 19:33 | disposition home or self-care (01) ==
LOC: ED 17:29 → EN 17:55 → AC 17:55
PROVIDERS: Emergency Provider Emergency Medicine; PCP Preventive Medicine Occupational Medicine; Referring Provider Internal Medicine Gastroenterology; Visit Provider Internal Medicine Gastroenterology
PROC: 0DJ08ZZ Inspection of Upper Intestinal Tract, Via Natural or Artificial Opening Endoscopic (ICD-10-PCS; CPT 43235; principal; 2022-12-25 17:45)
DX: T18.108A Unspecified foreign body in esophagus causing other injury, initial encounter (principal); J44.9 Chronic obstructive pulmonary disease, unspecified; I11.0 Hypertensive heart disease with heart failure; I50.32 Chronic diastolic (congestive) heart failure; F31.9 Bipolar disorder, unspecified; E11.9 Type 2 diabetes mellitus without complications; K44.9 Diaphragmatic hernia without obstruction or gangrene; E78.5 Hyperlipidemia, unspecified; R13.10 Dysphagia, unspecified; Z79.84 Long term (current) use of oral hypoglycemic drugs; F17.210 Nicotine dependence, cigarettes, uncomplicated; Z86.711 Personal history of pulmonary embolism; K21.9 Gastro-esophageal reflux disease without esophagitis
CPT/HCPCS: 43239; 43247; 43248; 88305; 88313; 99284; A4216; J1610

== ENCOUNTER → 2023-01-17 | Outpatient (CLI) | payer MEDICAID, SELFPAY ==
--- NOTE | 2023-01-17 10:10 | RAD_ITS ---
STUDY: X-RAY - PELVIS AND LEFT HIP REASON FOR EXAM: Female, 72 years old. Hip pain. TECHNIQUE: 3 views of the pelvis and left hip. COMPARISON: None. FINDINGS: There is a non-specific bowel gas pattern. There are small calcified phleboliths. There are atherosclerotic calcifications. Normal bilateral iliac wings, sacroiliac joints and visualized sacrum. Normal bilateral superior and inferior pubic rami. Normal pubic symphysis. Normal bilateral ischial tuberosities. There are minimal osteoarthritic changes of the femoral heads bilaterally with tiny marginal osteophyte formation. Normal acetabulum. Intact left hip joint. There is no demonstrated acute fracture. RAD/HIP, UNI W/ Pelvis 2-3 Views IMPRESSION: Minimal degenerative arthrosis of the hip joints bilaterally. No demonstrated acute fracture. Electronically Signed: William Salazar MD at 15:33 EDT ,
== END | disposition home or self-care (01) ==
PROVIDERS: PCP Preventive Medicine Occupational Medicine; Referring Provider Nurse Practitioner Acute Care; Visit Provider Nurse Practitioner Acute Care
DX: M53.3 Sacrococcygeal disorders, not elsewhere classified (principal); M25.552 Pain in left hip
CPT/HCPCS: 73502

== ENCOUNTER 2023-05-23 05:13 | Day surgery (SDC) | payer MEDICAID, SELFPAY ==
[2023-05-23] VITALS (7 sets, daily range): BP systolic 112–141; BP diastolic 56–90; PULSE 68–74; RESP 16–18; TEMP 36.1–36.9; O2SAT 94–98; BMI 44.7
[2023-05-23] MEDS: Lactated Ringers 1,000 ML 15 ML IV (06:49)
--- NOTE | 2023-05-23 07:59 | RAD_ITS ---
PROCEDURE: Left L4-L5 and L5-S1 radio frequency ablation. DATE OF EXAMINATION: May 23, 2023. INDICATION: Female, 73 years old. Chronic low back pain. FLUOROSCOPY TIME (if supplied): (19 seconds) minutes/seconds. 14.55 mGy. 8 fluoroscopic images were provided. RAD/Lumbar Spine 2 or 3 Views IMPRESSION: Intraoperative fluoroscopic services provided for left L4-L5 and L5-S1 radio frequency ablation. Electronically Signed: Dwight Cleary MD at 12:17 EST ,
[2023-05-23] MEDS: MethylPREDNISolone Acetate 40 MG/ML Vial (08:08)
[2023-05-23] MEDS: Lidocaine 1% (30 ml sdv) 30 ML Vial (08:08)
[2023-05-23 08:23] LABS: Bedside Glucose 329 mg/dL (74-106)
--- NOTE | 2023-05-23 08:28 | PCM.OPRPT ---
Report of Operation Date of Procedure: 05/23/23 Pre-Operative Diagnosis: Lumbosacral spondylosis, lumbosacral degenerative disc disease, lumbar facet arthropathy Post-Operative Diagnosis: Lumbosacral spondylosis, lumbosacral degenerative disc disease, lumbar facet arthropathy Surgery/Procedure Performed:: Left-sided lumbar radiofrequency ablation of the medial branch L4, L5, S1 under fluoroscopic guidance Type of Anesthesia: MAC Estimated Blood Loss (mL): Minimal Description of Procedure: History and physical today was reviewed. Risks and benefits of procedure explained. The patient understood, agreed to the procedure and informed consent was obtained. IV inserted per routine protocol. The patient was taken to the operating room, placed in the prone position with a pillow positioned underneath the abdomen. The left side of the lower back was prepped and draped in a sterile fashion using iodine x 3. Under fluoroscopy guidance, on an oblique view, the L3 through S1 vertebral bodies were visualized. The skin and subcutaneous tissue was anesthetized with approximately 10 mL of 1% lidocaine using a 25-gauge regular needle. Under direct visualization with fluoroscopy at approximately 25-degree angle, starting on the left L3, ending on the left S1 passing through the L4-L5 using a 20-gauge 15 cm with a 10 mm curved active tip radiofrequency ablation needle the needle passed through the skin. The tip of the needle was maneuvered and directed towards the superior and medial gutter of the transverse process at the vicinity of the medial branch. Once the tip of the needle was in contact with the bone, the needle pulled approximately 2 mm up the bone. The stylet of each needle was then removed. After negative aspiration of blood with CSF and confirmation of AP as well as oblique view, radiofrequency ablation probe was then inserted at each level. Impedance was then recorded at L3 to be 235, at L4 253, at L5 271, at S1 264 ohm. Motor-evoked potential was then initiated to 1.5 volt without any motor response at each corresponding level. The probe was then removed intact and a total of 6 mL preservative-free 1% lidocaine was injected in divided doses between those 4 levels after negative aspiration of blood with CSF. The radiofrequency ablation probe was then reinserted after confirmation of AP, oblique as well as lateral view. Radiofrequency ablation was then initiated to 80 degrees Celsius for 90 seconds at each level. Once concluded, the probe was then removed intact and a total of 6 mL of preservative-free 0.25% Marcaine with 40 mg Depo-Medrol was injected in divided doses between those 4 levels. The needles were then removed intact. The patient experienced no signs or symptoms of intrathecal, intravascular injection. The patient experienced no paraesthesia. The procedure was completed without any apparent difficulty, any complication. The patient appeared to tolerate well. Sensory as well as motor exam was unchanged from prior to procedure. ASSESSMENT AND PLAN: This is a 73-year-old female with lumbosacral spondylosis, lumbosacral degenerative disc disease, lumbar facet arthropathy, status post left-sided lumbar radiofrequency ablation of the medial branch L4 through S1. The patient will continue her current medications. The patient will follow up in approximately 2 weeks for reevaluation. Complications None
== END 2023-05-23 09:44 | disposition home or self-care (01) ==
LOC: SDC 05:13 → AC 05:34
PROVIDERS: PCP Preventive Medicine Occupational Medicine; Referring Provider Anesthesiology Pain Medicine; Visit Provider Anesthesiology Pain Medicine
PROC: (CPT 64636; principal; 2023-05-23 07:55)
DX: M47.817 Spondylosis without myelopathy or radiculopathy, lumbosacral region (principal); J44.9 Chronic obstructive pulmonary disease, unspecified; I50.30 Unspecified diastolic (congestive) heart failure; I11.0 Hypertensive heart disease with heart failure; M51.37 Other intervertebral disc degeneration, lumbosacral region; E78.5 Hyperlipidemia, unspecified; F17.210 Nicotine dependence, cigarettes, uncomplicated; Z94.7 Corneal transplant status; Z98.51 Tubal ligation status
CPT/HCPCS: 64636; 64635; 72100; 76000; 82962; 94640; J7120

== ENCOUNTER 2023-06-14 11:24 | Emergency (ER) | payer MEDICAID, SELFPAY ==
[2023-06-14 11:25] VITALS: BP 149/74; PULSE 76; PULSE 80; RESP 15; RESP 16; TEMP 36.4; O2SAT 94; O2SAT 95; BMI 46.2
[2023-06-14 11:28] VITALS: BP 149/74; PULSE 75; RESP 17; TEMP 36.4; O2SAT 95
[2023-06-14 13:23] VITALS: BP 134/76; PULSE 64; RESP 18; TEMP 37.2; O2SAT 99
--- NOTE | 2023-06-14 15:17 | ED.VIS.DENTA ---
HPI History of Present Illness Chief Complaint: Dental Informant: patient Onset/Context/Timing Onset: Days (2) Context: Gradual Onset Timing: Continuous Quality: Aching and throbbing, but sharp at times Location: Left lower incisor area Worsened by: Nothing Relieved by: - (Nothing) Associated Symptoms Assocated Symptom - Dental: jaw swelling and face swelling; Negative for fever, cold sensitivity or hot sensitivity Narrative Narrative: Patient presents with lower dental pain and jaw swelling that has been getting worse over the past 2 days. Patient describes her pain as aching and throbbing but sharp at times. Patient states it is over the left lower incisor area. Patient admits to some swelling of her jaw and face. Patient denies any fevers or chills. Patient denies any hot or cold sensitivity. Patient states nothing makes her pain better and nothing makes it worse. [facility] Medical History (HFpEF) heart failure with preserved ejection fraction (07/13/20) Ambulates with cane Anasarca Anxiety Bilateral sacroiliitis Bipolar disorder Bipolar disorder Cardiology follow-up encounter Chronic cough COPD (chronic obstructive pulmonary disease) Degeneration of intervertebral disc of lumbosacral region Depression Diabetes Dietary restriction Essential (primary) hypertension Fall High cholesterol History of CHF (congestive heart failure) History of diverticulitis History of echocardiogram History of edema History of pulmonary embolus (PE) (07/13/20) Hyperlipidemia Hypertension Migraine headache Nicotine dependence Pericardial effusion without cardiac tamponade (07/13/20) Sacrococcygeal disorders, not elsewhere classified Shortness of breath on exertion Smoker Spondylosis of lumbosacral region without myelopathy or radiculopathy Home Medications docusate sodium 100 mg capsule (DOK) 100 mg PO BID 12/14/17 [History Last Taken 01/06/20] escitalopram oxalate 10 mg tablet 10 mg PO QHS 12/14/17 [History Last Taken 01/06/20] quetiapine 400 mg tablet (Seroquel) 600 mg PO QHS 12/14/17 [History Last Taken 01/06/20] tizanidine 4 mg tablet 4 mg PO BID PRN muscle spasticity 12/14/17 [History Last Taken 01/06/20] cetirizine 10 mg capsule 10 mg PO QODAY 03/16/19 [History Last Taken 01/06/20] metformin 500 mg tablet 500 mg PO BIDCM ##0 07/15/20 [Rx Last Taken 01/06/20] lisinopril 5 mg tablet 5 mg PO LUNCH #30 tabs 08/12/20 [Rx Last Taken 01/04/22] bisacodyl 5 mg tablet,delayed release 10 mg PO DAILY 08/22/20 [History Last Taken Unknown] buspirone 10 mg tablet 10 mg PO TID PRN Anxiety 08/22/20 [History Last Taken Unknown] atenolol 50 mg tablet 50 mg PO BID 09/11/20 [History Last Taken 12/20/22] amlodipine 5 mg tablet 5 mg PO DAILY 12/23/20 [History Last Taken 11/16/21] buprenorphine 7.5 mcg/hour weekly transdermal patch (Butrans) 1 patch transdermal QWEEK 10/27/21 [History Last Taken 12/18/22] gabapentin 800 mg tablet 800 mg PO TID 10/28/21 [History Last Taken Unknown] multivitamin with folic acid 400 mcg tablet (Daily-Dmitri (with folic acid)) 1 tab PO DAILY 05/31/22 [History Last Taken Unknown] sumatriptan succinate 100 mg tablet 100 mg PO Q2H PRN migraines 05/31/22 [History Last Taken Unknown] ezetimibe 10 mg tablet 10 mg PO DAILY 06/10/22 [History Last Taken Unknown] diclofenac sodium 100 mg tablet,extended release 24 hr 100 mg PO DAILY PRN arthritis pain 12/15/22 [History Last Taken Unknown] hydroxyzine HCl 25 mg tablet 25 mg PO BID PRN anxiety 12/15/22 [History Last Taken Unknown] pantoprazole 20 mg tablet,delayed release 20 mg PO Q12H 3 months #180 tabs 12/25/22 [Rx Last Taken Unknown] albuterol sulfate 90 mcg/actuation aerosol inhaler 2 puff inhalation Q6H PRN shortness of breath or wheezing #8.5 grams 01/26/23 [Rx Last Taken Unknown] umeclidinium 62.5 mcg-vilanterol 25 mcg/actuation powdr for inhalation (Anoro Ellipta) 1 inh inhalation QDAY #60 ea 01/26/23 [Rx Last Taken Unknown] Allergy/AdvReac Type Severity Reaction Status Date / Time hydrocodone AdvReac NEEDS Verified 06/14/23 11:28 FOLLOW-UP oxycodone AdvReac NEEDS Verified 06/14/23 11:28 FOLLOW-UP [id number] Reductase AdvReac Constipatio Verified 06/14/23 11:28 Inhibitor n Family History (Reviewed 07/23/22 @ 10:08 by Coral Clemons CORPORATE TRAVEL COUNSELOR, CORPORATE TRAVEL COUNSELOR-C) Mother Schizophrenia Sister Depression Sister Depression Surgical History Corneal transplant status History of cataract surgery History of knee replacement History of lumbar surgery History of tubal ligation Hx of tonsillectomy Social History household members: other details: lives with son Smoking Status: Current every day smoker tobacco type: cigarettes alcohol intake: never substance use type: does not use caffeine: Yes Type: coffee Number of servings: 1 and tea seatbelt use: sometimes do you feel safe at home: Yes ROS ROS ED Constitutional Constitutional ED: Denies chills or fever(s) Eyes Eyes: Denies blurry vision or change in vision ENT ENT ED: Denies rhinorrhea or sore throat Cardiovascular Cardiovascular: Denies chest pain or palpitations Respiratory/Chest Respiratory/Chest: Denies cough or dyspnea Gastrointestinal Gastrointestinal: Denies nausea or vomiting Genitourinary Genitourinary ED: Denies dysuria or hematuria Musculoskeletal Musculoskeletal: Reports neck pain; Denies back pain Integumentary Denies abscess or rash Neurologic Neurologic: Denies headache(s) or weakness Allergic/Immunologic Allergic/Immunologic ED: Denies mouth swelling or urticaria EXAM Physical Exam Const Vital Signs: 06/14/23 11:25 06/14/23 11:25 06/14/23 11:28 Temperature 97.6 F L 97.6 F L Temperature Source Temporal Temporal Pulse Rate 80 76 75 Respiratory Rate 16 15 17 Blood Pressure 149/74 H 149/74 H 149/74 H Blood Pressure Mean 99 99 99 Pulse Ox 94 95 95 Oxygen Delivery Method Room Air Room Air Room Air Positive well nourished, well developed and obese General Appearance ED: well developed and NAD Nutritional Appearance: obese HEENT HEENT Narrative: There are dental caries over the left lower incisors. There is some mild gingival edema around these teeth. There is no fluctuance. There is no evidence of any abscess. There is no sublingual edema. There is no evidence of Kevin's angina. Oral mucosa is pink and moist. Oropharynx is clear. Airway is patent. Mouth ED: Yes oral and palatal mucosa normal Mouth: oral and palatal mucosa normal Teeth and Gingiva: caries and gingiva abnormal Positive for gingival edema Throat: posterior oropharynx normal Neck supple and no JVD General: Negative for anterior neck swelling, tenderness or submandibular swelling Resp normal respiratory effort and clear to auscultation bilaterally Cardio regular rate and regular rhythm Neuro oriented x3, CN's II-XII intact bilaterally, moves all extremities, no focal motor deficits and no sensory deficits noted Sensorium / Orientation: alert Motor Exam: strength 5/5 throughout Psych mental status grossly normal MDM MDM MDM Narrative Medical decision making narrative: Smoking cessation was discussed. Patient was advised that she has infected dental caries. Patient was given a prescription for Pen-Vee K. Patient was given a handwritten prescription for this because there was computer downtime when the patient was discharged. Patient was instructed to continue Tylenol and ibuprofen as needed for pain. Patient was instructed to follow-up with a dentist in 5 to 7 days. Patient understood and was agreeable with the plan. All questions were answered. Discharge Plan Triage Chief Complaint: Dental ED Provider: Brandyn Young Dx/Rx/DC Orders Clinical Impression: Infected dental caries, Nicotine dependence, Diabetes, Hypertension Instructions: ED Dental Pain, ED Dental Abscess Prescriptions: No Action amlodipine 5 mg tablet 5 mg PO DAILY gabapentin 800 mg tablet 800 mg PO TID buprenorphine [Butrans] 7.5 mcg/hour patch weekly 1 patch transdermal QWEEK multivitamin with folic acid [Daily-Dmitri (with folic acid)] 400 mcg tablet 1 tab PO DAILY sumatriptan succinate 100 mg tablet 100 mg PO Q2H PRN (Reason: migraines) ezetimibe 10 mg tablet 10 mg PO DAILY bisacodyl 5 mg tablet,delayed release (DR/EC) 10 mg PO DAILY Patient Comments: constipation tizanidine 4 MG tablet 4 mg PO BID PRN (Reason: muscle spasticity) docusate sodium [DOK] 100 MG capsule 100 mg PO BID escitalopram oxalate 10 MG tablet 10 mg PO QHS quetiapine [Seroquel] 400 MG tablet 600 mg PO QHS cetirizine 10 MG capsule 10 mg PO QODAY buspirone 10 mg tablet 10 mg PO TID PRN (Reason: Anxiety) metformin 500 MG tablet 500 mg PO BIDCM Qty: 0 0RF Patient Comments: diabetic medication Rx Instructions: resume 07/18/2020 diclofenac sodium 100 mg tablet extended release 24 hr 100 mg PO DAILY PRN (Reason: arthritis pain ) hydroxyzine HCl 25 mg tablet 25 mg PO BID PRN (Reason: anxiety) pantoprazole 20 mg tablet,delayed release (DR/EC) 20 mg PO Q12H 90 Days Qty: 180 2RF lisinopril 5 mg tablet 5 mg PO LUNCH Qty: 30 11RF atenolol 50 mg tablet 50 mg PO BID albuterol sulfate 90 mcg/actuation HFA aerosol inhaler 2 puff inhalation Q6H PRN (Reason: shortness of breath or wheezing) Qty: 8.5 6RF Anoro Ellipta 62.5-25 mcg/actuation blister with device 1 inh inhalation QDAY Qty: 60 5RF Primary Care Provider: Broderick Mi Referrals: Broderick Mi DO [Primary Care Provider] - Disposition Disposition: Home, Self Care
--- NOTE | 2023-06-14 15:18 | ED.RN ---
SEE DOWNTIME CHARTING.
== END 2023-06-14 13:23 | disposition home or self-care (01) ==
PROVIDERS: Emergency Provider Emergency Medicine; PCP Preventive Medicine Occupational Medicine; Visit Provider Emergency Medicine
DX: E11.638 Type 2 diabetes mellitus with other oral complications (principal); J44.9 Chronic obstructive pulmonary disease, unspecified; I11.0 Hypertensive heart disease with heart failure; I50.30 Unspecified diastolic (congestive) heart failure; F31.9 Bipolar disorder, unspecified; E78.00 Pure hypercholesterolemia, unspecified; F41.9 Anxiety disorder, unspecified; Z79.899 Other long term (current) drug therapy; Z79.84 Long term (current) use of oral hypoglycemic drugs; G43.909 Migraine, unspecified, not intractable, without status migrainosus; Z96.659 Presence of unspecified artificial knee joint; Z98.51 Tubal ligation status; Z94.7 Corneal transplant status; F17.210 Nicotine dependence, cigarettes, uncomplicated
CPT/HCPCS: 99282

== ENCOUNTER → 2023-06-15 | Outpatient (CLI) | payer MEDICAID, SELFPAY ==
--- NOTE | 2023-06-15 10:45 | RAD_ITS ---
STUDY: X-RAY - BILATERAL SHOULDERS REASON FOR EXAM: Female, 73 years old. Pain. TECHNIQUE - RIGHT SHOULDER: 2 view(s) of the right shoulder were obtained. TECHNIQUE - LEFT SHOULDER: 2 view(s) of the left shoulder were obtained. COMPARISON: None. FINDINGS - RIGHT SHOULDER: Osteopenia. Mild arthrosis of the glenohumeral joint. Moderate arthrosis of the AC joint. Small subacromial spur. Normal humeral head and visualized proximal humerus. The soft tissue structures are normal. Normal visualized pulmonary apex. FINDINGS - LEFT SHOULDER: Osteopenia. Mild arthrosis of the glenohumeral joint. Mild arthrosis of the AC joint. Normal acromion. Normal humeral head and visualized proximal humerus. The soft tissue structures are normal. Normal visualized pulmonary apex. RAD/Shoulder min 2 Views IMPRESSION: Osteopenia with arthrosis of the glenohumeral and acromioclavicular joints bilaterally. Small right subacromial spur. Electronically Signed: Grayson Dow MD at 15:26 EDT ,
--- NOTE | 2023-06-15 10:51 | RAD_ITS ---
STUDY: X-RAY - CERVICAL SPINE REASON FOR EXAM: Female, 73 years old. Neck pain. TECHNIQUE: 3 view(s) of the cervical spine were obtained. COMPARISON: None FINDINGS: Osteopenia. Normal anterior atlantoaxial articulation. Normal odontoid process. Reversal of the normal lordotic curve. Diffuse moderate to marked uncovertebral and facet sclerosis. Diffuse intervertebral disc space narrowing with osteophytes most marked at C3-4, C4-5, C5-6 and to a lesser degree C6-7. Limbus vertebra of C4. Normal soft tissues. RAD/Cerv Spine 2 or 3 Views IMPRESSION: Osteopenia with moderate to marked cervical spondylosis as described. Electronically Signed: Grayson Dow MD at 15:27 EDT ,
--- NOTE | 2023-06-15 10:57 | RAD_ITS ---
STUDY: X-RAY - THORACIC SPINE REASON FOR EXAM: Female, 73 years old. Back pain. TECHNIQUE: 2 view(s) of the thoracic spine were obtained on 3 images. COMPARISON: None. FINDINGS: Osteopenia. Slight increased kyphosis. Minimal dextroscoliosis. Diffuse intervertebral disc space narrowing with osteophytes. Anterior wedge compression deformity of T10, age undetermined. Vascular calcification. RAD/Thoracic Spine 2 Views IMPRESSION: Osteopenia with anterior wedge compression deformity of T10, age undetermined and diffuse moderate spondylosis. Electronically Signed: Grayson Dow MD at 15:24 EDT ,
[2023-06-15 10:59] LABS: Hematocrit 38.5 % (37-47); Hemoglobin 12.4 g/dL (12.0-15.0); Mean Corp Hgb Conc 32.2 g/dL (32-36); Mean Corpuscular Hgb 27.6 pg (27.0-32.0); Mean Corpuscular Volume 85.6 fL (81-99); Mean Platelet Vol. 9.9 fl (6.2-12.0); Platelet Count 290 K/mm3 (150-450); RBC Distribution Width CV 15.4 % (11.6-14.6); RBC Distribution Width SD 47.6 fl (35.1-43.9); White Blood Count 11.3 K/mm3 (4.4-11.0)
[2023-06-15 11:20] LABS: Microalbumin,Random Urine 10.8 mg/L (NO RANGE EST.); Microalbumin:Creatinine Ratio 7.1 mg/g CRE (<30 mg/g CRE)
[2023-06-15 11:35] LABS: ALB/GLOB Ratio 0.8 RATIO (0.9-2.4); AST(SGOT) 10 U/L (15-37); Alanine Aminotransfer ALT/SGPT 21 U/L (13-56); Albumin, Serum 3.2 g/dL (3.2-5.0); Alkaline Phosphatase 112 U/L (45-117); Anion Gap 12 (5-15); BUN 19 mg/dL (7-18); BUN/Creat Ratio 17.4 RATIO (10-20); Calcium,Total 9.2 mg/dL (8.5-10.1); Chloride 101 mmol/L (98-107); Cholesterol 184 mg/dL (200); Creatinine, Serum 1.09 mg/dL (0.55-1.02); EST Glomerular Filtration Rate 52 mL/min (>60); Est Glom Filt Rate - Afr Amer 63 mL/min (>60); Globulin 3.9 g/dL (2.2-4.2); Glucose 211 mg/dL (74-106); High Density Lipoprotein 32 mg/dL; Potassium 4.1 mmol/L (3.5-5.1); Protein, Total 7.1 g/dL (6.4-8.2); Sodium Level 137 mmol/L (136-145); Triglycerides 294 mg/dL; Very Low Density Lipoprotein 59 mg/dL (5-40)
== END | disposition home or self-care (01) ==
LOC: LAB 10:16
PROVIDERS: PCP Preventive Medicine Occupational Medicine; Referring Provider Clinical Nurse Specialist Adult Health; Visit Provider Clinical Nurse Specialist Adult Health
DX: E78.2 Mixed hyperlipidemia (principal); E11.9 Type 2 diabetes mellitus without complications; I10 Essential (primary) hypertension; M25.511 Pain in right shoulder; M25.512 Pain in left shoulder; M54.2 Cervicalgia; M54.6 Pain in thoracic spine
CPT/HCPCS: 36415; 72040; 72070; 73030; 80053; 80061; 82043; 82570; 85027

== ENCOUNTER 2023-06-19 11:34 | Emergency (ER) | payer MEDICAID, SELFPAY ==
[2023-06-19 11:35] VITALS: BP 107/79; PULSE 74; RESP 20; TEMP 36.8; O2SAT 96; BMI 44.4
[2023-06-19 11:41] VITALS: BP 107/79; PULSE 65; RESP 18; TEMP 36.4; O2SAT 95
--- NOTE | 2023-06-19 12:09 | ED.VIS.DENTA ---
HPI History of Present Illness Chief Complaint: Dental Informant: patient and EMS Narrative Narrative: 73-year-old female presenting to the emergency room with a chief complaint of facial pain and swelling. On 13 June the patient was diagnosed with infected dental caries and started on penicillin. She states over the past 48 hours she has had increased swelling along the left chin. This morning she had multiple blisters that came up and she was rubbing the area and they popped and she had a very foul tasting fluid in her mouth. She has been taking penicillin as her antibiotic. She notes that she is in pain management and takes a buprenorphine patch for chronic back pain. She wonders if there is anything else she can take for pain. She has an appointment in 3 days with dentistry. [facility] Medical History (HFpEF) heart failure with preserved ejection fraction (07/13/20) Ambulates with cane Anasarca Anxiety Bilateral sacroiliitis Bipolar disorder Bipolar disorder Cardiology follow-up encounter Chronic cough COPD (chronic obstructive pulmonary disease) Degeneration of intervertebral disc of lumbosacral region Depression Diabetes Dietary restriction Essential (primary) hypertension Fall High cholesterol History of CHF (congestive heart failure) History of diverticulitis History of echocardiogram History of edema History of pulmonary embolus (PE) (07/13/20) Hyperlipidemia Hypertension Migraine headache Nicotine dependence Pericardial effusion without cardiac tamponade (07/13/20) Sacrococcygeal disorders, not elsewhere classified Shortness of breath on exertion Smoker Spondylosis of lumbosacral region without myelopathy or radiculopathy Home Medications docusate sodium 100 mg capsule (DOK) 100 mg PO BID 12/14/17 [History Last Taken 01/06/20] escitalopram oxalate 10 mg tablet 10 mg PO QHS 12/14/17 [History Last Taken 01/06/20] quetiapine 400 mg tablet (Seroquel) 600 mg PO QHS 12/14/17 [History Last Taken 01/06/20] tizanidine 4 mg tablet 4 mg PO BID PRN muscle spasticity 12/14/17 [History Last Taken 01/06/20] cetirizine 10 mg capsule 10 mg PO QODAY 03/16/19 [History Last Taken 01/06/20] metformin 500 mg tablet 500 mg PO BIDCM ##0 07/15/20 [Rx Last Taken 01/06/20] lisinopril 5 mg tablet 5 mg PO LUNCH #30 tabs 08/12/20 [Rx Last Taken 01/04/22] bisacodyl 5 mg tablet,delayed release 10 mg PO DAILY 08/22/20 [History Last Taken Unknown] buspirone 10 mg tablet 10 mg PO TID PRN Anxiety 08/22/20 [History Last Taken Unknown] atenolol 50 mg tablet 50 mg PO BID 09/11/20 [History Last Taken 12/20/22] amlodipine 5 mg tablet 5 mg PO DAILY 12/23/20 [History Last Taken 11/16/21] buprenorphine 7.5 mcg/hour weekly transdermal patch (Butrans) 1 patch transdermal QWEEK 10/27/21 [History Last Taken 12/18/22] gabapentin 800 mg tablet 800 mg PO TID 10/28/21 [History Last Taken Unknown] multivitamin with folic acid 400 mcg tablet (Daily-Dmitri (with folic acid)) 1 tab PO DAILY 05/31/22 [History Last Taken Unknown] sumatriptan succinate 100 mg tablet 100 mg PO Q2H PRN migraines 05/31/22 [History Last Taken Unknown] ezetimibe 10 mg tablet 10 mg PO DAILY 06/10/22 [History Last Taken Unknown] diclofenac sodium 100 mg tablet,extended release 24 hr 100 mg PO DAILY PRN arthritis pain 12/15/22 [History Last Taken Unknown] hydroxyzine HCl 25 mg tablet 25 mg PO BID PRN anxiety 12/15/22 [History Last Taken Unknown] pantoprazole 20 mg tablet,delayed release 20 mg PO Q12H 3 months #180 tabs 12/25/22 [Rx Last Taken Unknown] albuterol sulfate 90 mcg/actuation aerosol inhaler 2 puff inhalation Q6H PRN shortness of breath or wheezing #8.5 grams 01/26/23 [Rx Last Taken Unknown] umeclidinium 62.5 mcg-vilanterol 25 mcg/actuation powdr for inhalation (Anoro Ellipta) 1 inh inhalation QDAY #60 ea 01/26/23 [Rx Last Taken Unknown] amoxicillin 875 mg-potassium clavulanate 125 mg tablet 1 tab PO BID #20 tabs 06/19/23 [Rx Last Taken Unknown] oxycodone-acetaminophen 5 mg-325 mg tablet 1 tab PO Q6H PRN PRN Pain 3 days #12 TABLETS 06/19/23 [Rx Last Taken Unknown] penicillin V potassium 500 mg tablet 500 mg PO 4X/DAY 06/19/23 [History Last Taken Unknown] Allergy/AdvReac Type Severity Reaction Status Date / Time hydrocodone AdvReac NEEDS Verified 06/19/23 11:35 FOLLOW-UP oxycodone AdvReac NEEDS Verified 06/19/23 11:35 FOLLOW-UP [id number] Reductase AdvReac Constipatio Verified 06/19/23 11:35 Inhibitor n Family History Mother Schizophrenia Sister Depression Sister Depression Surgical History Corneal transplant status History of cataract surgery History of knee replacement History of lumbar surgery History of tubal ligation Hx of tonsillectomy Social History household members: other details: lives with son Smoking Status: Current every day smoker tobacco type: cigarettes alcohol intake: never substance use type: does not use caffeine: Yes Type: coffee Number of servings: 1 and tea seatbelt use: sometimes do you feel safe at home: Yes ROS ROS ED Constitutional Constitutional ED: Denies chills, fever(s) or weight loss Eyes Eyes: Denies change in vision or diplopia ENT ENT ED: Reports other Details: Left mandibular facial pain and swelling. Dental tenderness. No difficulty swallowing or opening her mouth. ; Denies ear pain, rhinorrhea or sore throat Cardiovascular Cardiovascular: Denies chest pain, orthopnea, palpitations or racing heartbeat Respiratory/Chest Respiratory/Chest: Denies cough, dyspnea or orthopnea Gastrointestinal Gastrointestinal: Denies abdominal pain, diarrhea, nausea or vomiting Genitourinary Genitourinary ED: Denies dysuria, hematuria or urinary frequency Musculoskeletal Musculoskeletal: Reports other Details: Chronic back pain no change ; Denies arthralgias or myalgias Integumentary Denies abscess or rash Neurologic Neurologic: Denies headache(s) or weakness Psychiatric Psychiatric: Denies anxiety, depression, suicidal ideation or suicidal thoughts Endocrine Endocrinology: Denies polydipsia, polyphagia or polyuria Allergic/Immunologic Allergic/Immunologic ED: Denies mouth swelling, tongue swelling or urticaria EXAM Physical Exam Const Vital Signs: 06/19/23 11:35 06/19/23 11:41 Temperature 98.3 F 97.6 F L Temperature Source Oral Oral Pulse Rate 74 65 Respiratory Rate 20 H 18 Blood Pressure 107/79 107/79 Blood Pressure Mean 88 88 Pulse Ox 96 95 Oxygen Delivery Method Room Air Room Air Positive well nourished, well developed and obese General Appearance ED: well developed Nutritional Appearance: obese HEENT Reports normocephalic, head/scalp atraumatic and moist mucous membranes HEENT Narrative: Patient has focal swelling left chin left lower mandible. There is no trismus. Floor the mouth is soft. Along the gumline is some swelling and about a 1 cm area of skin that is now open and draining purulence. There is widespread dental decay. I do not appreciate significant facial erythema. Eyes PERRL and EOMs intact bilaterally Neck no lymphadenopathy, supple and no JVD Resp normal respiratory effort and clear to auscultation bilaterally Cardio regular rate, regular rhythm and no murmurs GI normal to inspection, nondistended, normoactive bowel sounds and non-tender Palpation: soft Back/Spine no CVA tenderness and normal ROM Extremity normal to inspection General Extremety ED: Negative for edema General Extremity: Negative for edema Neuro oriented x3 and CN's II-XII intact bilaterally Sensorium / Orientation: alert Motor Exam: strength 5/5 throughout Psych mental status grossly normal Mood & Affect: Negative for depressed or tearful Skin no rashes or lesions noted and no wounds MDM MDM MDM Narrative Medical decision making narrative: Patient appears to have a dental abscess that has now spontaneously started to drain. Encouraged her to go ahead and continue to rub the area she may benefit from some warm water swishes. We can change her to Augmentin though I suspect that just by the spontaneously draining will help significantly. I reviewed her OARRS report and she appears compliant. I do believe that this is a acutely painful condition and she may benefit from some Percocet for pain control. She has a dental appointment in 3 days which I encouraged her to keep. Patient called EMS due to transportation issues and finance issues. We will fill her prescription here at the hospital so she does not have to take a taxi to her pharmacy. History & Record Review Discussion w/independent historian: EMS personnel and Patient Discharge Plan Triage Chief Complaint: Dental ED Provider: Bon Barrett Dx/Rx/DC Orders Clinical Impression: Acute facial pain, Abscess, dental Instructions: ED Dental Abscess Prescriptions: New amoxicillin-pot clavulanate 875-125 mg tablet 1 tab PO BID Qty: 20 0RF oxycodone-acetaminophen [oxycodone-acetaminophen] 5-325 mg tablet 1 tab PO Q6H PRN PRN (Reason: Pain) 3 Days Qty: 12 0RF No Action amlodipine 5 mg tablet 5 mg PO DAILY gabapentin 800 mg tablet 800 mg PO TID buprenorphine [Butrans] 7.5 mcg/hour patch weekly 1 patch transdermal QWEEK multivitamin with folic acid [Daily-Dmitri (with folic acid)] 400 mcg tablet 1 tab PO DAILY sumatriptan succinate 100 mg tablet 100 mg PO Q2H PRN (Reason: migraines) ezetimibe 10 mg tablet 10 mg PO DAILY bisacodyl 5 mg tablet,delayed release (DR/EC) 10 mg PO DAILY Patient Comments: constipation tizanidine 4 MG tablet 4 mg PO BID PRN (Reason: muscle spasticity) docusate sodium [DOK] 100 MG capsule 100 mg PO BID escitalopram oxalate 10 MG tablet 10 mg PO QHS quetiapine [Seroquel] 400 MG tablet 600 mg PO QHS cetirizine 10 MG capsule 10 mg PO QODAY buspirone 10 mg tablet 10 mg PO TID PRN (Reason: Anxiety) metformin 500 MG tablet 500 mg PO BIDCM Qty: 0 0RF Patient Comments: diabetic medication Rx Instructions: resume 07/18/2020 diclofenac sodium 100 mg tablet extended release 24 hr 100 mg PO DAILY PRN (Reason: arthritis pain ) hydroxyzine HCl 25 mg tablet 25 mg PO BID PRN (Reason: anxiety) pantoprazole 20 mg tablet,delayed release (DR/EC) 20 mg PO Q12H 90 Days Qty: 180 2RF penicillin V potassium 500 mg tablet 500 mg PO 4X/DAY lisinopril 5 mg tablet 5 mg PO LUNCH Qty: 30 11RF atenolol 50 mg tablet 50 mg PO BID albuterol sulfate 90 mcg/actuation HFA aerosol inhaler 2 puff inhalation Q6H PRN (Reason: shortness of breath or wheezing) Qty: 8.5 6RF Anoro Ellipta 62.5-25 mcg/actuation blister with device 1 inh inhalation QDAY Qty: 60 5RF Primary Care Provider: Broderick Mi Referrals: Broderick Mi DO [Primary Care Provider] - Activity Restrictions/Additional Instructions: Please keep your appointment with dentistry. I would continue to massage the chin area to try to express as much of the infection as possible. Disposition Disposition: Home, Self Care
--- OUTSIDE RECORDS SUMMARY | 2023-06-19 12:20 | XMS RPT_ITS | CCD ---
Author Name Unknown Address [address] [place] [address] Organization [facility] Care Team Providers Care Mh Teacher Name Role Phone BERNIE JOVEL DO Primary Care Physician ([id number] BERNIE JOVEL DO Attending Unavailable BERNIE JOVEL DO Primary Care Unavailable PHYLLIS AYALA MD Attending Unavailable BERNIE JOVEL DO Primary Care Unavailable Allergies Allergy Classification Reported Allergen(s) Allergy Type Date of Onset Reaction(s) Facility (2 sources) atorvastatin; Translations: [atorvastatin] Drug Allergy Constipation [facility] (2 sources) buPROPion; Translations: [bupropion] Drug Allergy Palpitations [facility] Medications Current Medications Medication Drug Class(es) Dates Sig (Normalized) Sig (Original) albuterol MDI (90 mcg/inh) CFC free inhalation aerosol (2 sources) Start: 10-26-2021 take 2 puff(s) by inhalation every six hours as needed for wheezing albuterol MDI (90 mcg/inh) CFC free inhalation aerosol 2 puff(s), Inhalation, q6hr, PRN as needed for wheezing, # 1 EA, 1 Refill(s), Pharmacy: [facility] - [id number], COPD mixed type, 159, cm, 10/13/21 10:32:00 EDT, Height Start Date: 10/26/21 Status: Ordered amLODIPine 5 mg oral tablet (2 sources) Dihydropyridine Calcium Channel Chavez Start: 10-21-2022 amLODIPine 5 mg oral tablet Dose : 5 mg = 1 tab(s), Oral, qDay, # 90 tab(s), 3 Refill(s), Pharmacy: [facility] [id number], 159, cm, 05/27/22 10:48:00 EST, Height, kg, 10/04/22 11:09:00 EDT, Dosing Weight Start Date: 10/21/22 Status: Ordered Completed/Discontinued Medications Medication Drug Class(es) Dates Sig (Normalized) Sig (Original) alendronic acid 70 mg oral tablet (1 source) Bisphosphonate Start: 12-27-2022 take 6-8 [oz_av] by mouth once daily alendronate 70 mg oral tablet Dose : 70 mg = 1 tab(s), Oral, qWeek, with 6-8 oz plain water, at least 30 minutes before first food, beverage, or medication of the day, # 4 tab(s), 5 Refill(s), Pharmacy: [place] [id number], Osteoporosis, 159, cm, 11/23/22 10:24:00 EDT, Height, kg, 11/23/22 10:24:00 EDT, Dosing Weight Start Date: 12/27/22 Status: Ordered gabapentin 800 mg oral tablet (2 sources) Anti-epileptic Agent Start: 05-27-2022 End: 06-26-2022 gabapentin 800 mg oral tablet Dose : 800 mg = 1 tab(s), Oral, TID, # 90 tab(s), 0 Refill(s), other reason (Rx), Lumbar radiculopathy, 121.8 Start Date: 05/27/22 Stop Date: 06/26/22 Status: Ordered Problems Active Problems Problem Classification Problem Date Documented Da te Episodic/Chronic Allergic reactions (1 source) Urticaria 10-11-2018 Episodic Chronic obstructive pulmonary disease and bronchiectasis (2 sources) Chronic obstructive lung disease 10-26-2021 Chronic Congestive heart failure; nonhypertensive (2 sources) Acute diastolic heart failure 07-23-2020 Chronic Diabetes mellitus without complication (2 sources) Diabetes mellitus 09-19-2019 Chronic Disorders of lipid metabolism (2 sources) Mixed hyperlipidemia 10-11-2018 Chronic Essential hypertension (2 sources) Essential hypertension 09-19-2019 Chronic Genitourinary symptoms and ill-defined conditions (2 sources) Mixed urinary incontinence 10-11-2018 Chronic Genitourinary symptoms and ill-defined conditions (2 sources) Unspecified symptoms and signs involving the genitourinary system; Translations: [Unspecified symptoms and signs involving the genitourinary system] Onset: 3 Episodic Headache; including migraine (2 sources) Migraine 09-19-2019 Chronic Immunizations and screening for infectious disease (2 sources) Encounter for screening for human papillomavirus (HPV); Translations: [Encounter for screening for human papillomavirus (HPV)] Onset: 3 Episodic Mood disorders (4 sources) Bipolar disorder; Translations: [Depressive disorder] 10-11-2018 Chronic Osteoarthritis (2 sources) Degenerative joint disease involving multiple joints 10-11-2018 Chronic Osteoporosis (1 source) Osteoporosis 12-26-2022 Chronic Other gastrointestinal disorders (2 sources) Constipation 08-28-2019 Episodic Other inflammatory condition of skin (1 source) Pruritic rash 11-23-2022 Episodic Other lower respiratory disease (2 sources) Hypoxia 07-23-2020 Episodic Other nutritional; endocrine; and metabolic disorders (2 sources) Body mass index 40+ - severely obese 06-30-2020 Chronic Other screening for suspected conditions (not mental disorders or infectious disease) (2 sources) Encounter for screening for malignant neoplasm of cervix; Translations: [Encounter for screening for malignant neoplasm of cervix] Onset: 3 Episodic Other skin disorders (1 source) Inflammatory dermatosis 11-23-2022 Episodic Pulmonary heart disease (2 sources) H/O: pulmonary embolus 12-22-2020 Episodic Residual codes; unclassified (2 sources) Needs influenza immunization 03-25-2021 Episodic Residual codes; unclassified (1 source) Bilateral lower limb edema 10-04-2022 Episodic Residual codes; unclassified (1 source) Dependent edema 12-14-2022 Episodic Residual codes; unclassified (1 source) Postmenopausal state 11-23-2022 Episodic Schizophrenia and other psychotic disorders (2 sources) Undifferentiated schizophrenia 10-11-2018 Chronic Spondylosis; intervertebral disc disorders; other back problems (2 sources) Lumbar radiculopathy 05-27-2022 Episodic Substance-related disorders (2 sources) Tobacco dependence caused by cigarettes 07-16-2020 Chronic Unclassified (2 sources) Patient encounter status 03-16-2019 Past or Other Problems Problem Classification Problem Date Documented Da te Episodic/Chronic Urinary tract infections (3 sources) Bacterial urinary infection; Translations: [Urinary tract infection, site not specified] Onset: 05-27-2022 05-27-2022 Episodic Results Test Name Value Interpretation Reference Range Facil ity Encounters Encounter Date Encounter Type Care Provider Facility Start: 02-15-2023 End: 02-20-2023 ambulatory PHYLLIS AYALA MD Facility:B Start: 02-15-2023 End: 02-19-2023 Outreach Lab PHYLLIS AYALA MD [facility] Start: 05-27-2022 End: 06-01-2022 ambulatory BERNIE JOVEL Facility:B Start: 05-27-2022 End: 05-31-2022 Outreach Lab BERNIE JOVEL DO [facility] Procedures Date Procedure Procedure Detail Performing Clinician Arthroplasty of [facility] Immunizations Immunization Date Immunization Notes Care Provider Fa cili 05-27-2022 influenza, injectabl e, quadrivalent, contains preservative; Translations: [Fluarix PF Quadrivalent ] [facility] 03-25-2021 influenza, high dose seasonal, preservative-free; Translations: [Fluad Quadrivalent PF ] [facility] 06-03-2020 COVID-19, mRNA, LNP- S, PF, 100 mcg or 50 mcg dose; Translations: [Moderna COVID-19 Vaccine] [facility] Payers Date Payer Category Payer Private Health Insurance [id number] 1950 Unknown [id number] 1950 Unknown [id number] Social History Date Type Detail Facility Start: 12-15-2018 Tobacco smoking status Heavy t obacco smoker (finding) [facility] Sex Assigned At Female [facility] Medical Equipment Procedure Code Equipment Code Equipment Origin al Text Equipment Identifier Dates See Instructions , Use 1 strip daily as directed to test blood sugar, # 100 EA, 3 Refill(s), Diabetes mellitus, 121.8 Start: 05-27-2022 See Instructions , Use 1 lancet daily as directed to test blood sugar, # 100 EA, 3 Refill(s), Diabetes mellitus, 121.8 Start: 05-27-2022 See Instructions , Dispense glucose test strips, #100, Use 1 strip daily as directed to test blood sugar. Dx: E11.9, # 100 EA, 3 Refill(s), Pharmacy: [facility] [id number], Diabetes mellitus, 159, cm, 05/27/22 10:48:00 EST, Height, 121.8, kg, 05/27/22 10:40:00 EST, Dosing Weight Start: 06-14-2022 See Instructions , Dispense ultrafine lancets, #100, Use 1 lancet daily as directed to test blood sugar. Dx: E11.9, # 100 EA, 3 Refill(s), Pharmacy: [facility] [id number], Diabetes mellitus, 159, cm, 05/27/22 10:48:00 EST, Height, 121.8, kg, 05/27/22 10:40:00 EST, Dosing Weight Start: 06-14-2022 Clinical Note 02-16-2023 Note Date & Type Note Facility 02-16-2023 Note . MICRO - Microbiology PROCEDURE: Urine Culture [*1] SOURCE: Urine, Clean Catch BODY SITE: COLLECTED DATE/TIME: 02/15/2023 10:59 EST RECEIVED DATE/TIME: 02/15/2023 19:12 EST START DATE/TIME: 02/15/2023 19:12 EST FREE TEXT SOURCE: FINAL REPORTS Final Report [] Verified Date/Time/Personnel: 02/16/2023 14:21 EST >100,000 cfu/ml Multiple bacterial morphotypes present. Probable Contamination. Suggest recollection if clinically indicated. Performing Locations *1: This test was performed at: [facility], [address] [place] [address], [id number] , [facility] [place] Clinical Note 05-29-2022 Note Date & Type Note Facility 05-29-2022 Note . MICRO - Microbiology PROCEDURE: Urine Culture [*1] SOURCE: Urine, Clean Catch BODY SITE: COLLECTED DATE/TIME: 05/27/2022 11:27 EST RECEIVED DATE/TIME: 05/27/2022 20:18 EST START DATE/TIME: 05/27/2022 20:19 EST FREE TEXT SOURCE: FINAL REPORTS Final Report [] Verified Date/Time/Personnel: 05/29/2022 07:50 EST >100,000 cfu/ml Multiple bacterial morphotypes present. Probable Contamination. Suggest recollection if clinically indicated. PRELIMINARY REPORTS Preliminary Report [] Verified Date/Time/Personnel: 05/28/2022 09:13 EST Culture results pending. Performing Locations *1: This test was performed at: [facility], [address] [place] [address], [facility] , [facility] ([place]) Evaluation + Plan note Laboratory Note Date & Type Note Facility Evaluation + Plan note Future Appointments Appointment Date:11/23/2022 10:30:00 AM Scheduled Provider:BERNIE JOVEL DO Location:[facility] Appointment Type:PC OV Diagnostic Tests PendingMicroalbumin Level Urine 05/27/22 Future Scheduled TestsThyroid Stimulating Hormone 05/27/22Complete Blood Count 05/27/22Lipid Profile 05/27/22Complete Metabolic Panel 05/27/22 [facility] Evaluation + Plan note Note Date & Type Note Facility Evaluation + Plan note Future Appointments Appointment Date:03/15/2023 09:45:00 AM Scheduled Provider:PHYLLIS AYALA MD Location: [facility] Appointment Type:[facility] OV Appointment Date:05/24/2023 10:30:00 AM Scheduled Provider:BERNIE JOVEL DO Location:[facility] Appointment Type:PC OV Follow Up [facility] Hospital course Narrative Note Date & Type Note Facility Hospital course Narrative No data available for this section [facility] Hospital Discharge instructions Note Date & Type Note Facility Hospital Discharge instructions No data available for this section [facility] Progress note Note Date & Type Note Facility Progress note No data available for this section [facility] Summary Purpose Family History No Family History Records Found No data available for this section No Family History Records Found Advance Directives No Advanced Directives Records FoundNo Advanced Directives Records Found Additional Source Comments INFORMATION SOURCE (unrecogn ized section and content) DATE CREATED AUTHOR AUTHOR'S ORGANIZ ATION 03/01/2023 [facility] ([place]) Care Team (unrecognized sect ion and content) Care Team Personnel Name: BERNIE JOVEL DO Position: P4 Physician - Primary Care Member Role: Primary Care Physician Address: Address: [address] [place] [address] Care Team Related Persons Name: KOBI ROSADO Patient Care team informatio n (unrecognized section and content) Care Team Personnel Name: BERNIE JOVEL DO Position: P4 Physician - Primary Care Member Role: Primary Care Physician Address: Address: [address] [place] [address] Care Team Related Persons Name: KOBI ROSADO FOR RECORDS PERTAINING TO PATIENTS WHO ARE OR HAVE BEEN ENROLLED IN A CHEMICAL DEPENDENCY/SUBSTANCEABUSE PROGRAM, SOME INFORMATION MAY BE OMITTED. This clinical summary was aggregated from multiple sources. Caution should be exercised in using it in the provision of clinical care. This summary normalizes information from multiple sources, and as a consequence, information in this document may materially change the coding, format and clinical context of patient data. In addition, data may be omitted in some cases. CLINICAL DECISIONS SHOULD BE BASED ON THE PRIMARY CLINICAL RECORDS. [employer] [facility]. provides no warranty or guarantee of the accuracy or completeness of information in this document.
[2023-06-19 12:21] VITALS: BP 116/77; PULSE 87; RESP 16; TEMP 36.8; O2SAT 99
--- NOTE | 2023-06-19 12:35 | ED.RN ---
pt reports want rx transfered to [place] and will milk pickup driver tuesday.
== END 2023-06-19 12:35 | disposition home or self-care (01) ==
LOC: ED 12:12
PROVIDERS: Emergency Provider Emergency Medicine; PCP Preventive Medicine Occupational Medicine; Visit Provider Emergency Medicine
DX: K04.7 Periapical abscess without sinus (principal); J44.9 Chronic obstructive pulmonary disease, unspecified; I50.30 Unspecified diastolic (congestive) heart failure; I11.0 Hypertensive heart disease with heart failure; F31.9 Bipolar disorder, unspecified; E11.638 Type 2 diabetes mellitus with other oral complications; G89.29 Other chronic pain; M54.9 Dorsalgia, unspecified; Z79.899 Other long term (current) drug therapy; E78.00 Pure hypercholesterolemia, unspecified; F41.9 Anxiety disorder, unspecified; Z79.84 Long term (current) use of oral hypoglycemic drugs; Z94.7 Corneal transplant status; Z96.659 Presence of unspecified artificial knee joint; Z98.51 Tubal ligation status; F17.210 Nicotine dependence, cigarettes, uncomplicated
CPT/HCPCS: 99282

== ENCOUNTER 2023-08-08 10:17 | Day surgery (SDC) | payer MEDICAID, SELFPAY ==
[2023-08-08] VITALS (7 sets, daily range): BP systolic 83–115; BP diastolic 53–59; PULSE 68–75; RESP 16–24; TEMP 36.2–37.4; O2SAT 93–99; BMI 45.6
[2023-08-08] MEDS: MethylPREDNISolone Acetate 80 MG/ML Vial (08:41)
[2023-08-08] MEDS: Lactated Ringers 1,000 ML 15 ML IV (11:16)
--- NOTE | 2023-08-08 11:20 | RAD_ITS ---
PROCEDURE: Caudal epidural steroid injection. DATE OF EXAMINATION: August 08, 2023. INDICATION: Female, 73 years old. Chronic low back pain. FLUOROSCOPY TIME (if supplied): (22 seconds) minutes/seconds. 17.71 mGy. One image was submitted. RAD/Fluor Guidance for Spine Inj IMPRESSION: Intraoperative fluoroscopic services provided for caudal epidural steroid injection. Electronically Signed: Dwight Cleary MD at 15:18 EDT ,
[2023-08-08 11:35] LABS: Bedside Glucose 136 mg/dL (74-106)
[2023-08-08] MEDS: Lidocaine 1% (5 ml sdv) 5 ML Vial (11:52)
[2023-08-08] MEDS: 0.9% Normal Saline (Pres. free 10 ML Vial (11:53)
--- NOTE | 2023-08-08 11:55 | OP.PCM_ITS ---
Report of Operation Date of Procedure: 08/08/23 Pre-Operative Diagnosis: Lumbosacral radiculopathy, lumbosacral degenerative di sc disease, lumbosacral spinal stenosis Post-Operative Diagnosis: Lumbosacral radiculopathy, lumbosacral degenerative disc disease, lumbosacral spinal stenosis Surgery/Procedure Performed:: Diagnostic/therapeutic caudal epidural steroid injection under fluoroscopic guidance Type of Anesthesia: MAC Estimated Blood Loss (mL): Minimal Description of Procedure: DESCRIPTION OF PROCEDURE: History and physical of today was reviewed. Risks and benefits of the procedure were explained. The patient understood and agreed to proceed. Informed consent was obtained. IV inserted per routine protocol. The patient was taken to the operating room and placed in the prone position with a pillow positioned underneath the abdomen. The lower back and tailbone area was prepped and draped in a sterile fashion using iodine x3. Under fluoroscopy guidance on a lateral view, the caudal space was identified. The skin and subcutaneous tissue was anesthetized with approximately 3 mL of 1% lidocaine using a 25-gauge regular needle. Under direct visualization with fluoroscopy, using a 22-gauge 3-1/2-inch spinal needle, the needle was advanced via the skin through the sacral hiatus. The tip of the needle was passed through the sacrococcygeal ligament and advanced to approximately S4 area. After negative aspiration of blood or CSF, a total of 3 mL of contrast was injected to confirm correct placement of the needle as well as cephalad spread. The spread was followed to approximately L5 area. After confirmation on AP as well as lateral view and repeated negative aspiration, a total of 15 mL of preservative-free 0.125% Marcaine with 80 mg of Depo-Medrol was injected easily. The needle was then removed intact. The patient experienced no sign or symptoms of intrathecal or intravascular injection. The patient experienced no paresthesia. The procedure was completed without any apparent difficulty or any complications. The patient appeared to tolerate it well. ASSESSMENT AND PLAN: This is a 73-year-old female with lumbosacral radiculopathy, lumbosacral degenerative disc disease, lumbosacral spinal stenosis status post diagnostic/therapeutic caudal epidural steroid injection, patient will continue her current medications, patient will follow in approximately 2 weeks for reevaluation. Complications None
== END 2023-08-08 13:24 | disposition home or self-care (01) ==
LOC: SDC 10:19 → AC 10:35
PROVIDERS: PCP Preventive Medicine Occupational Medicine; Referring Provider Anesthesiology Pain Medicine; Visit Provider Anesthesiology Pain Medicine
PROC: 3E0S3BZ Introduction of Anesthetic Agent into Epidural Space, Percutaneous Approach (ICD-10-PCS; CPT 62282; principal; 2023-08-08 12:15)
DX: M51.17 Intervertebral disc disorders with radiculopathy, lumbosacral region (principal); F20.9 Schizophrenia, unspecified; I50.30 Unspecified diastolic (congestive) heart failure; I11.0 Hypertensive heart disease with heart failure; F31.9 Bipolar disorder, unspecified; J44.9 Chronic obstructive pulmonary disease, unspecified; E11.9 Type 2 diabetes mellitus without complications; M48.07 Spinal stenosis, lumbosacral region; F41.9 Anxiety disorder, unspecified; M47.817 Spondylosis without myelopathy or radiculopathy, lumbosacral region; M53.3 Sacrococcygeal disorders, not elsewhere classified; M46.96 Unspecified inflammatory spondylopathy, lumbar region; Z79.51 Long term (current) use of inhaled steroids; Z79.899 Other long term (current) drug therapy; Z79.84 Long term (current) use of oral hypoglycemic drugs; Z87.891 Personal history of nicotine dependence; Z86.711 Personal history of pulmonary embolism
CPT/HCPCS: 62323; 01992; 64483; 77003; 82962; J7120; J3490

== ENCOUNTER → 2023-12-27 | Outpatient (CLI) | payer MEDICAID, SELFPAY ==
--- NOTE | 2023-12-27 14:30 | CT_ITS ---
STUDY: LOW DOSE CT LUNG CANCER SCREENING REASON FOR EXAM: Female, 73 years old. Smoker RADIATION DOSAGE (If Supplied By Facility): CTDIvol = ( 4.02 ) mGy, DLP = ( 127.88 ) mGycm TECHNIQUE: No contrast was administered. Low dose technique was utilized (average mAS-38 and kVp 120). 1.25 mm axial source images with a slice interval of 1.25-mm were reconstructed in lung windows. 2.5 mm axial source images with a slice interval of 2.5-mm were reconstructed in lung windows. 5.0 mm axial source images with a slice interval of 5.0-mm were reconstructed in soft tissue windows. COMPARISON: Comparison is made with prior study dated June 17, 2022. NODULES: No suspicious nodules are seen. Emphysema: Stable emphysematous changes. Stable chronic interstitial scarring in both lungs more prominent in the posterior aspect of the left upper lobe abutting the major fissure. Endobronchial lesion: None Aorta: Atherosclerotic calcific plaques. CORONARY ARTERIES: Coronary artery calcification is seen. Heart: Cardiomegaly. Pulmonary artery: Marked Mediastinal nodes: Unremarkable Other chest and abdominal findings: CT/Low Dose CT Lung Screening IMPRESSION: Lung-RADS category 2 - Continue annual screening with LDCT in 12 months. IMPORTANT NOTES FOR USE: ACR Lung-RADS Version 1.1 Assessment Categories Release Date: 2018 Category: Coded 0-4 bases on nodule(s) with highest degree of suspicion. Negative screen is defined as categories 1 and 2; a positive screen is defined as categories 3 and 4. Category 3 and 4A nodules that are unchanged on interval CT should be coded as category 2, and individuals returned to screening in 12 months. Category 4X: Category 3 or 4 nodules with additional imaging findings that increase the suspicion of lung cancer, such as spiculation, GGN that doubles in size in 1 year, enlarged lymph notes, etc. Category Modifiers: S (significant finding unrelated to lung cancer) Electronically Signed: Dwight Cleary MD at 15:32 EDT ,
== END | disposition home or self-care (01) ==
LOC: CT 14:29
PROVIDERS: PCP Preventive Medicine Occupational Medicine; Referring Provider Nurse Practitioner Acute Care; Visit Provider Nurse Practitioner Acute Care
DX: F17.210 Nicotine dependence, cigarettes, uncomplicated (principal)
CPT/HCPCS: 71271

== ENCOUNTER 2024-04-09 08:17 | Day surgery (SDC) | payer MEDICAID, SELFPAY ==
[2024-04-09] VITALS (7 sets, daily range): BP systolic 89–107; BP diastolic 48–74; PULSE 52–72; RESP 15–18; TEMP 36.4–36.7; O2SAT 92–95; BMI 44.1
--- NOTE | 2024-04-09 08:32 | PRE.ANES_ITS ---
ASA Classification* ASA Classification ASA Classification: 3 Assessment & Plan Anesthesia* Anesthesia Assessment Anesthesia Assessment: Discussed sedation and/or anesthesia options, risks, benefits, and alternatives with patient/parents/legal guardian/POA. Questions invited. The patient/parents/legal guardian/POA seems to understand and agrees to proceed with anesthesia plan. Reviewed the physical assessment, medical history, allergy history and patient home medications list prior to surgery/procedure/anesthetic and documented any changes. Performed airway and anesthesia risk assessments. Anesthesia Type Anesthesia Type: MAC Anesthesia Focused Assessment* Airway Assessment Mouth opens: >3 cm Mallampati Score: II Focused Labs Anesthesia Preop lab: CBC WBC 11.3 K/mm3 (4.4-11.0) H 06/15/23 10:20 RBC 4.50 M/mm3 (4.2-5.4) 06/15/23 10:20 Hgb 12.4 g/dL (12.0-15.0) 06/15/23 10:20 Hct 38.5 % (37-47) 06/15/23 10:20 Plt Count 290 K/mm3 (150-450) 06/15/23 10:20 CHEMISTRY Potassium 4.1 mmol/L (3.5-5.1) 06/15/23 10:20 Sodium 137 mmol/L (136-145) 06/15/23 10:20 Magnesium 2.3 mg/dL (1.6-2.6) 07/13/20 13:08 BUN 19 mg/dL (7-18) H 06/15/23 10:20 Creatinine 1.09 mg/dL (0.55-1.02) H 06/15/23 10:20 Glucose 211 mg/dL (74-106) H 06/15/23 10:20 POC Glucose 136 mg/dL (74-106) H 08/08/23 11:05 TSH 2.92 uIU/mL (0.358-3.74) 05/31/22 14:35 COAG PT 13.9 SECONDS (11.7-14.9) 04/15/21 10:05 Pre-Assessment Diagnosis/Proposed Procedure Planned Operative Procedure(s): cervical median nerve block Anesthesia History Anesthesia History - copy center associate: Anesthesia History - copy center associate Hx Hospitalization No 12/15/22 09:37 Any Problems With Anesthesia No 12/15/22 09:37 Cholinesterase deficiency No 12/15/22 09:37 You/Your Family Experience No 12/15/22 09:37 fever (hyperthermia) with Relationship Recent Exposure to Contagious No 08/08/23 11:08 Disease Does patient have nerve No 12/15/22 09:37 stimulator Patient instructed to have device shut off --Does patient have Pacemaker or ICD? When Was Last Pacemaker Check QUESTION #4 FULL TEXT: You/Your Family Experience fever (hyperthermia) with Anesthesia Last Oral Intake Last Oral intake: Last Oral Intake NPO since Meds taken in AM with sips of water? 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 - copy center associate: PONV - copy center associate Female HX of Motion Sickness HX of N/V After Surgery Non-Smoker Duration of Surgery greater than 60 minutes Number of Risk Factors PONV Score Height & Weight Height & Weight: Anesthesia: Height & Weight Height 5 ft 3 in 02/10/24 07:40 Respiratory Assessment Respiratory Assessment - copy center associate: Respiratory Tract Infection Hx - copy center associate Hx Respiratory Tract Infection No 12/15/22 09:37 STOP Sleep Apnea STOP Sleep Apnea - copy center associate: STOP Sleep Apnea - copy center associate Hx Hypertension Yes: CONTROLLED WITH MED 12/15/22 09:37 Hx Sleep Apnea No 12/15/22 09:37 CPAP No 08/08/23 12:00 BIPAP No 05/14/20 09:41 Do you snore loudly (louder than talking or can be heard Do you often feel tired/ fatigued/ sleepy during daytime? Has anyone observed you stop breathing during sleep? STOP Results QUESTION #5 FULL TEXT : Do you snore loudly (louder than talking or can be heard through closed doors)? Tobacco Use History Tobacco Use History - copy center associate: Tobacco Use History - copy center associate Tobacco Use Smoking Status Heavy Smoker (>10/day) 11/25/23 08:34 Hx Tobacco Use Yes 12/15/22 09:37 Years Smoking Packs Smoked per Day Smoking Cessation Date was within the last 15 years Hx Smoking Cessation Date 08/22/20 06/19/23 11:39 Hx Smoking Cessation Counseling Hematologic Medial History Hematologic Hx - copy center associate: Hematologic Medical Hx - transitional care liaison Hx of Blood Transfusion Hx of Transfusion in last 3 Months Date of Last Transfusion (if within last 3 months) Ever experience any problems with transfusion(s)? Specify any problems Hx of Preganancy in last 3 Months Nurse Filling Out Transfusion & Questions: Date: Time: Patient unable to answer at this time (ie. confused, unrespo /Reproduction History /Reproductive History - copy center associate: /Reproductive Hx- copy center associate Hx Now Gestational Age (in weeks): EDC: Hx Hx Para Hx Section SAB PFSH Medical History Bipolar disorder Depression Anxiety Migraine headache Dietary restriction History of diverticulitis Chronic cough History of echocardiogram Hypertension Cardiology follow-up encounter COPD (chronic obstructive pulmonary disease) Shortness of breath on exertion Ambulates with cane High cholesterol Smoker History of edema History of CHF (congestive heart failure) Fall Hyperlipidemia Nicotine dependence History of pulmonary embolus (PE) (07/13/20) (HFpEF) heart failure with preserved ejection fraction (07/13/20) Pericardial effusion without cardiac tamponade (07/13/20) Essential (primary) hypertension Anasarca Degeneration of intervertebral disc of lumbosacral region Spondylosis of lumbosacral region without myelopathy or radiculopathy Bilateral sacroiliitis Sacrococcygeal disorders, not elsewhere classified Bipolar disorder Diabetes Home Medications ?Medication ?Instructions ?Recorded ?Last Taken ?Type docusate sodium 100 mg capsule 100 mg PO BID 12/14/17 01/06/20 History (DOK) escitalopram oxalate 10 mg tablet 10 mg PO QHS 12/14/17 01/06/20 History tizanidine 4 mg tablet 4 mg PO BID PRN muscle spasticity 12/14/17 01/06/20 History cetirizine 10 mg capsule 10 mg PO QODAY 03/16/19 01/06/20 History lisinopril 5 mg tablet 5 mg PO LUNCH #30 tabs 08/12/20 01/04/22 Rx buspirone 10 mg tablet 10 mg PO TID PRN Anxiety 08/22/20 08/07/23 History atenolol 50 mg tablet 50 mg PO BID 09/11/20 08/08/23 History gabapentin 800 mg tablet 800 mg PO TID 10/28/21 Unknown History multivitamin with folic acid 400 1 tab PO DAILY 05/31/22 Unknown History mcg tablet (Daily-Dmitri (with folic acid)) sumatriptan succinate 100 mg tablet 100 mg PO Q2H PRN migraines 05/31/22 Unknown History ezetimibe 10 mg tablet 10 mg PO DAILY 06/10/22 Unknown History hydroxyzine HCl 25 mg tablet 25 mg PO BID PRN anxiety 12/15/22 Unknown History furosemide 40 mg tablet 40 mg PO DAILY 08/08/23 08/07/23 History pantoprazole 20 mg tablet,delayed 20 mg PO Q12H 3 months #180 tabs 08/18/23 Unknown Rx release alendronate 70 mg tablet 70 mg PO QWEEK 11/25/23 Unknown History amlodipine 5 mg tablet 2.5 mg PO DAILY 11/25/23 Unknown History bisacodyl 5 mg tablet,delayed 5 mg PO DAILY 11/25/23 Unknown History release buprenorphine 10 mcg/hour weekly 1 patch transdermal Q7D 11/25/23 Unknown History transdermal patch calcium 500 mg (as 1 tab PO BID 11/25/23 Unknown History carbonate)-vitamin D3 5 mcg (200 unit) tablet (Oyster Shell Calcium-Vitamin D3) diclofenac sodium 25 mg 25 mg PO DAILY PRN 11/25/23 Unknown History tablet,delayed release metformin 500 mg tablet 1,000 mg PO BIDCM 11/25/23 Unknown History quetiapine 200 mg tablet 200 mg PO QHS 11/25/23 Unknown History quetiapine 400 mg tablet (Seroquel) 400 mg PO QHS 11/25/23 Unknown History mometasone-formoterol HFA 200 2 puff inhalation BID #13 grams 03/05/24 Unknown Rx mcg-5 mcg/actuation aerosol inhaler (Dulera) tiotropium bromide 2.5 2 inh inhalation QDAY #1 ea 03/05/24 Unknown Rx mcg/actuation mist for inhalation (Spiriva Respimat) albuterol sulfate 90 mcg/actuation 2 puff inhalation Q6H PRN 03/27/24 Unknown Rx aerosol inhaler shortness of breath or wheezing #8.5 grams Allergy/AdvReac Type Severity Reaction Status Date / Time hydrocodone AdvReac NEEDS Verified 02/10/24 11:19 FOLLOW-UP oxycodone AdvReac NEEDS Verified 02/10/24 11:19 FOLLOW-UP [id number] Reductase AdvReac Constipatio Verified 02/10/24 11:19 Inhibitor n Family History Mother Schizophrenia Sister Depression Sister Depression Surgical History Corneal transplant status Hx of tonsillectomy History of knee replacement History of lumbar surgery History of cataract surgery History of tubal ligation Social History household members: other details: lives with son Smoking Status: Heavy Smoker (>10/day) alcohol intake: never substance use type: does not use caffeine: Yes Type: coffee Number of servings: 3 and tea Number of servings: 1 seatbelt use: sometimes do you feel safe at home: Yes Review of Systems (Anesthesia) ROS Narrative System reviewed and no additional complaints, except as documented.
[2024-04-09 09:19] LABS: Bedside Glucose 146 mg/dL (74-106)
--- NOTE | 2024-04-09 09:37 | RAD_ITS ---
PROCEDURE: Right cervical nerve block, C3-C6 DATE OF EXAMINATION: 04/09/2024 INDICATION: Female, 74 years old. Radiating neck pain PHYSICIAN: Brandon Cuellar MD FLUOROSCOPY TIME (if supplied): (10.2) seconds, 4 fluoroscopic images obtained RADIATION DOSAGE (If Supplied By Facility): CTDIvol = ( 3.2 ) mGy, DLP = ( ) mGycm CONSENT: The risks, benefits and alternatives to the procedure were explained to the patient, and the patient agreed to the procedure and signed the consent. SEDATION: Local STERILE BARRIER TECHNIQUE: The following sterile barrier precautions were used during the procedure: hand hygiene; use of 2% chlorhexidine aseptic; use of a cap, mask, sterile gown, sterile gloves, sterile full body drape, and a large sterile sheet. PROCEDURE/TECHNIQUE: (All elements of maximal sterile barrier technique followed, including US elements as applicable) The risks, benefits, and alternatives to the procedure were explained to patient, and the patient agreed to the procedure and signed a consent form for the procedure. A timeout was performed to confirm the patient''s identity, the type of procedure, to be performed and the site of entry. No intraoperative complications noted during right-sided nerve block from C3 to C6. RAD/Cerv Spine 2 or 3 Views IMPRESSION: No complications noted during cervical nerve block Electronically Signed: Mahendra Vo MD at 12:11 EST ,
[2024-04-09] MEDS: MethylPREDNISolone Acetate 80 MG/ML Vial (09:43)
[2024-04-09] MEDS: Bupivacaine 0.25% 30 ML Vial (09:43)
--- NOTE | 2024-04-09 09:49 | PCM.OPRPT ---
Operative Report (Standard) Operative Information Date of Procedure: 04/09/24 Pre-Operative Diagnosis: 1 Post-Operative Diagnosis: 1 Surgery/Procedure Performed: 1 staff air defense officer: No Type of Anesthesia: MAC and Topical Anesth RN Documented Start/Stop Times: Operation Date: 04/09/24 09:20 Case Time Into Pre-Op 04/09/24 08:25 Out of Pre-Op 04/09/24 09:28 Anesthesia Start 04/09/24 09:37 Into Room 04/09/24 09:37 Procedure Start 04/09/24 09:44 Procedure End 04/09/24 09:48 Procedure Start Time: 09:49 Procedure Stop Time: :49 Select all DRAINS/GRAFTS/IMPLANTS that apply: None Estimated Blood Loss: 0 Specimen collected: No Description of surgery: PREOPERATIVE DIAGNOSIS: Cervical spondylosis, cervical degenerative disc disease, cervical facet arthropathy POSTOPERATIVE DIAGNOSIS:Cervical spondylosis, cervical degenerative disc disease, cervical facet arthropathy PROCEDURE PERFORMED: Right sided cervical medial branch block at C3, C4, C5, and C6. ANESTHESIA: MAC. BLOOD LOSS: Minimal. COMPLICATIONS: None. DESCRIPTION OF PROCEDURE: History and physical of today was reviewed. Risks and benefits of the procedure were explained. The patient understood and agreed to proceed. Informed consent was obtained. IV inserted per routine protocol. The patient was taken to the operating room and placed in the prone position with a pillow positioned underneath the chest. The neck area was prepped and draped in a sterile fashion using iodine x3. Under fluoroscopy guidance on an AP view, the C3 through C6 vertebral bodies were visualized at approximately 10-degree angle, starting on the right C3, ending on the right C6, passing through the C4 and C5. Using a 25-gauge 3-1/2-inch spinal needle, the needle was advanced via the skin. The tip of the needle was maneuvered and directed towards the epiphyseal junction of each corresponding vertebra. Once the tip of the needle was at the vicinity of the medial branch, the needle was pulled approximately 2 mm off the bone. After negative aspiration of blood or CSF and confirmation on AP, oblique as well as lateral view, a total of 4 mL of preservative-free 0.25% Marcaine with 80 mg of Depo-Medrol was injected in divided doses between those four levels. The needles were then removed intact. The patient experienced no sign or symptoms of intrathecal or intravascular injection. The patient experienced no paresthesia. The procedure was completed without any apparent difficulty or any complications. The patient appeared to tolerate it well. ASSESSMENT AND PLAN: This is a 74-year-old female with cervical spondylosis, cervicogenic disc disease, cervical facet arthropathy status post right-sided cervical medial branch block C3-C6, patient will continue her current medications, patient will follow-up in approximately 1 to 2 weeks for reevaluation Surgical Findings: 1 Complications Complications: No Admit VTE Documentation VTE Present on Admission: No VTE Mechan Device Prophylaxis: None VTE Pharm Prophylaxis ordered?: No
--- NOTE | 2024-04-09 10:25 | PCM.POST.ANE ---
Anesthesia: Postop Eval I Current Vital Signs Temperature: 97.9 F Pulse Rate: 52 Blood Pressure: 93/53 Respiratory Rate: 15 Pulse Ox: 93 Oxygen Delivery Method: Room Air Assessment Airway patent: Yes Spontaneous unlabored respirations: Yes Mental status: Awake and Calm nausea: No Vomiting: No Anesthesia Complication: No Fluid Hydration Crystalloid volume administer (ml): 30 Total IV fluid infused: 30 Progress Note Anesthesia document: Postop Eval 1 completed: Yes
--- NOTE | 2024-04-09 10:43 | POSTOPAN2_ITS ---
Anesthesia Postop Eval I Sum Postop Eval Completion status Anesthesia document: Postop Eval 1 completed: Yes Anesthesia Postop Eval I Summary Anesthesia Postop Eval I Summary: Anesthesia Postop Eval I: Assessment Summary Airway patent Yes 04/09/24 10:25 [email or web address] Spontaneous unlabored Yes 04/09/24 10:25 [email or web address] [email or web address] respirations Mental status Awake,Calm 04/09/24 10:25 [email or web address] [email or web address] nausea No 04/09/24 10:25 [email or web address] Vomiting No 04/09/24 10:25 [email or web address] Anesthesia Postop Eval I: Fluid Summary Crystalloid volume administer 30 04/09/24 10:25 [email or web address] (ml) Colloids volume administered ( ml) Blood Product volume administered (ml) Total IV fluid infused 30 04/09/24 10:25 [email or web address] Anesthesia Postop Eval I: Summary Notes Anesthesia Complication No 04/09/24 10:25 [email or web address] Anesthesia Complication Comment: Post-operative progress note Anesthesia: Postop Eval II Evaluation Mental status: Awake Pain Level: 0 nausea: No Vomiting: No
--- NOTE | 2024-04-09 10:43 | PCM.POSTANE2 ---
Anesthesia Postop Eval I Sum Postop Eval Completion status Anesthesia document: Postop Eval 1 completed: Yes Anesthesia Postop Eval I Summary Anesthesia Postop Eval I Summary: Anesthesia Postop Eval I: Assessment Summary Airway patent Yes 04/09/24 10:25 MEDICAL LANGUAGE [email or web address] Spontaneous unlabored Yes 04/09/24 10:25 MEDICAL LANGUAGE [email or web address] respirations Mental status Awake,Calm 04/09/24 10:25 MEDICAL LANGUAGE [email or web address] nausea No 04/09/24 10:25 MEDICAL LANGUAGE [email or web address] Vomiting No 04/09/24 10:25 MEDICAL LANGUAGE [email or web address] Anesthesia Postop Eval I: Fluid Summary Crystalloid volume administer 30 04/09/24 10:25 MEDICAL LANGUAGE [email or web address] (ml) Colloids volume administered ( ml) Blood Product volume administered (ml) Total IV fluid infused 30 04/09/24 10:25 MEDICAL LANGUAGE [email or web address] Anesthesia Postop Eval I: Summary Notes Anesthesia Complication No 04/09/24 10:25 MEDICAL LANGUAGE [email or web address] Anesthesia Complication Comment: Post-operative progress note Anesthesia: Postop Eval II Evaluation Mental status: Awake Pain Level: 0 nausea: No Vomiting: No
== END 2024-04-09 11:30 | disposition home or self-care (01) ==
LOC: SDC 08:18 → AC 08:21 → ACINP 11:08
PROVIDERS: PCP Preventive Medicine Occupational Medicine; Referring Provider Anesthesiology Pain Medicine; Visit Provider Anesthesiology Pain Medicine
PROC: 3E0S3BZ Introduction of Anesthetic Agent into Epidural Space, Percutaneous Approach (ICD-10-PCS; CPT 62322; principal; 2024-04-09 09:15)
DX: M47.812 Spondylosis without myelopathy or radiculopathy, cervical region (principal); M50.30 Other cervical disc degeneration, unspecified cervical region
CPT/HCPCS: 64492; 64491; 64490; 72040; 82962; A4216

== ENCOUNTER → 2024-05-01 | Outpatient (CLI) | payer MEDICAID, SELFPAY ==
[2024-05-01 13:06] VITALS: PULSE 73; PULSE 74; PULSE 80; PULSE 83; PULSE 86; PULSE 87; PULSE 90; O2SAT 91; O2SAT 92; O2SAT 93; O2SAT 94
--- NOTE | 2024-05-09 13:25 | WT_ITS ---
PSN 6 Minute Walk Test 6 Minute Walk Test 6 Minute Walk Test: 6 Minute Walk Test PSN:6-Minute Walk Test Start: 05/01/24 13:06 Freq: Status: Active Protocol: [id number] Document 05/01/24 13:06 [email or web address] (Rec: 05/01/24 13:08 SETH [id number]) 6 Minute Walk Test Date Performed 05/01/24 Time Performed 12:40 Height 5 ft 3 in Weight: 255 lb Weight in Pounds 255.[address]: Coral Clemons ELECTRIC METER SETTER Assistive device Walker used: Pre-test Oxygen Delivery Room Air Method Pulse Ox (%) 93 Pulse Rate (60-100 74 beats/min) Dyspnea Tanvi Scale ( 1 0-10) Exertion Tanvi Scale 6 (6-20) 1st minute Oxygen Delivery Room Air Method Pulse Ox (%) 93 Pulse Rate (60-100 80 beats/min) Number of Rests 1 Taken 2nd minute Oxygen Delivery Room Air Method Pulse Ox (%) 92 Pulse Rate (60-100 83 beats/min) 3rd minute Oxygen Delivery Room Air Method Pulse Ox (%) 92 Pulse Rate (60-100 86 beats/min) Number of Rests 1 Taken 4th minute Oxygen Delivery Room Air Method Pulse Ox (%) 91 Pulse Rate (60-100 86 beats/min) Number of Rests 1 Taken 5th minute Oxygen Delivery Room Air Method Pulse Ox (%) 93 Pulse Rate (60-100 87 beats/min) 6th minute Oxygen Delivery Room Air Method Pulse Ox (%) 92 Pulse Rate (60-100 90 beats/min) Dyspnea Tanvi Scale ( 4 0-10) Exertion Tanvi Scale 14 (6-20) Post-test Oxygen Delivery Room Air Method Pulse Ox (%) 94 Pulse Rate (60-100 73 beats/min) Full Laps Walked 6 Partial Lap, Number 17 of Tiles Walked Total Distance 371 Walked (ft) Interpretation Interpretation: The patient ambulated 371 feet over the course of 6 minutes beginning on room air with the use of a walker. Pretesting oxygen saturation was noted to be 93% on room air. With ambulation, the anna oxygen saturation was 91%. Although there was evidence of significantly impaired walk distance, there was no significant exertional oxygen desaturation. Recommendations Recommendations: There is no indication for the use of supplemental oxygen at this time.
== END | disposition home or self-care (01) ==
LOC: PSN 12:32
PROVIDERS: PCP Preventive Medicine Occupational Medicine; Referring Provider Nurse Practitioner Acute Care; Visit Provider Nurse Practitioner Acute Care
DX: J44.9 Chronic obstructive pulmonary disease, unspecified (principal)
CPT/HCPCS: 94618

== ENCOUNTER → 2024-05-18 | Outpatient (CLI) | payer MEDICAID, SELFPAY | END | disposition home or self-care (01) | LOC: PSN 12:13 | PROVIDERS: PCP Preventive Medicine Occupational Medicine; Referring Provider Nurse Practitioner Acute Care; Visit Provider Nurse Practitioner Acute Care | DX: J44.9 Chronic obstructive pulmonary disease, unspecified (principal) | CPT/HCPCS: 94060; 94726; 94729 ==

== ENCOUNTER 2024-06-18 08:13 | Day surgery (SDC) | payer MEDICAID, SELFPAY ==
--- NOTE | 2024-05-17 13:57 | PAT.ANESEVAL ---
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 When Was Last Pacemaker Check QUESTION #4 FULL TEXT: You/Your Family Experience fever (hyperthermia) with Anesthesia Last Oral Intake Last Oral intake: Last Oral Intake NPO since Meds taken in AM with sips of water? 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 Has anyone observed you stop No 05/17/24 12:58 breathing during sleep? STOP Results Negative 05/17/24 12:58 QUESTION #5 FULL TEXT : Do you snore loudly (louder than talking or can be heard through closed doors)? 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 Specify any problems Hx of Preganancy in last 3 N/A 05/17/24 12:58 Months Nurse Filling Out Transfusion NBUCHER 05/17/24 12:58 & Questions: Date: 05/17/24 05/17/24 12:58 Time: 12:59 05/17/24 12:58 Patient unable to answer at this time (ie. 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 operator Hx Now Gestational Age (in weeks): EDC: Hx Hx Para Hx Section SAB PFSH Medical History (Updated 05/17/24 @ 13:05 by Stacey Mckeon) Bipolar disorder Depression Anxiety Migraine headache Dietary restriction History of diverticulitis Chronic cough History of echocardiogram Hypertension Cardiology follow-up encounter COPD (chronic obstructive pulmonary disease) Shortness of breath on exertion Ambulates with cane High cholesterol Smoker History of edema History of CHF (congestive heart failure) Fall Hyperlipidemia Nicotine dependence History of pulmonary embolus (PE) (07/13/20) (HFpEF) heart failure with preserved ejection fraction (07/13/20) Pericardial effusion without cardiac tamponade (07/13/20) Essential (primary) hypertension Anasarca Degeneration of intervertebral disc of lumbosacral region Spondylosis of lumbosacral region without myelopathy or radiculopathy Bilateral sacroiliitis Sacrococcygeal disorders, not elsewhere classified Bipolar disorder Diabetes Home Medications ?Medication ?Instructions ?Recorded ?Last Taken ?Type docusate sodium 100 mg capsule 100 mg PO BID 12/14/17 04/08/24 History (DOK) escitalopram oxalate 10 mg tablet 10 mg PO QHS 12/14/17 04/08/24 History tizanidine 4 mg tablet 4 mg PO BID PRN muscle spasticity 12/14/17 04/08/24 History cetirizine 10 mg capsule 10 mg PO QODAY 03/16/19 04/08/24 History lisinopril 5 mg tablet 5 mg PO LUNCH #30 tabs 08/12/20 04/09/24 Rx buspirone 10 mg tablet 10 mg PO TID PRN Anxiety 08/22/20 04/08/24 History atenolol 50 mg tablet 50 mg PO BID 09/11/20 08/08/23 History gabapentin 800 mg tablet 800 mg PO TID 10/28/21 04/08/24 History multivitamin with folic acid 400 1 tab PO DAILY 05/31/22 04/08/24 History mcg tablet (Daily-Dmitri (with folic acid)) sumatriptan succinate 100 mg tablet 100 mg PO Q2H PRN migraines 05/31/22 04/08/24 History ezetimibe 10 mg tablet 10 mg PO DAILY 06/10/22 04/08/24 History hydroxyzine HCl 25 mg tablet 25 mg PO BID PRN anxiety 12/15/22 04/08/24 History furosemide 40 mg tablet 40 mg PO DAILY 08/08/23 04/08/24 History alendronate 70 mg tablet 70 mg PO QWEEK 11/25/23 04/08/24 History amlodipine 5 mg tablet 2.5 mg PO DAILY 11/25/23 04/08/24 History bisacodyl 5 mg tablet,delayed 5 mg PO DAILY 11/25/23 04/08/24 History release buprenorphine 10 mcg/hour weekly 1 patch transdermal Q7D 11/25/23 04/09/24 History transdermal patch calcium 500 mg (as 1 tab PO BID 11/25/23 04/08/24 History carbonate)-vitamin D3 5 mcg (200 unit) tablet (Oyster Shell Calcium-Vitamin D3) diclofenac sodium 25 mg 25 mg PO DAILY PRN pain 11/25/23 04/08/24 History tablet,delayed release metformin 500 mg tablet 1,000 mg PO BIDCM 11/25/23 04/08/24 History quetiapine 200 mg tablet 200 mg PO QHS 11/25/23 04/08/24 History quetiapine 400 mg tablet (Seroquel) 400 mg PO QHS 11/25/23 04/08/24 History mometasone-formoterol HFA 200 2 puff inhalation BID #13 grams 03/05/24 04/08/24 Rx mcg-5 mcg/actuation aerosol inhaler (Dulera) tiotropium bromide 2.5 2 inh inhalation QDAY #1 ea 03/05/24 04/08/24 Rx mcg/actuation mist for inhalation (Spiriva Respimat) albuterol sulfate 90 mcg/actuation 2 puff inhalation Q6H PRN 03/27/24 04/08/24 Rx aerosol inhaler shortness of breath or wheezing #8.5 grams pantoprazole 20 mg tablet,delayed 20 mg PO Q12H 3 months #180 tabs 04/26/24 Unknown Rx release Allergy/AdvReac Type Severity Reaction Status Date / Time hydrocodone AdvReac NEEDS Verified 05/17/24 12:55 FOLLOW-UP oxycodone AdvReac NEEDS Verified 05/17/24 12:55 FOLLOW-UP [id number] Reductase AdvReac Constipatio Verified 05/17/24 12:55 Inhibitor n Family History Mother Schizophrenia Sister Depression Sister Depression Surgical History Corneal transplant status Hx of tonsillectomy History of knee replacement History of lumbar surgery History of cataract surgery History of tubal ligation Social History household members: other details: lives with son Smoking Status: Heavy Smoker (>10/day) alcohol intake: never substance use type: does not use caffeine: Yes Type: coffee Number of servings: 3 and tea Number of servings: 1 seatbelt use: sometimes do you feel safe at home: Yes Audit: Pertinent Findings Pertinent Findings EKG Perinent findings: December 23, 2020. Sinus rhythm. Negative precordial T waves. Echo (EF%) pertinent findings: July 14, 2020. Ejection fraction is 60%. PA systolic pressure is 36 mmHg. No aortic stenosis noted. Consult pertinent findings: November 25, 2023. Julio MALONE. 1. Heart failure with preserved ejection fraction-chronic. Last echo in 2020 shows ejection fraction 60%. She continues to have shortness of breath but unchanged. Shortness of breath is believed to be multifactorial. Lifestyle modifications are encouraged. 2. Hypertension-controlled on meds. Decrease amlodipine to assist with lower blood pressure. 3. History of pulmonary embolism-pulmonary embolus of the right middle lobe. Patient's anticoagulation has been discontinued since this was her only episode. Recommendation Anesthesia Recommendation Anesthesia recommendation: OPTIMIZED for anesthesia
--- NOTE | 2024-06-18 11:00 | RAD_ITS ---
PROCEDURE: Fluoroscopy use. 06/18/2024 REASON FOR EXAM: BLOCK, CAUDAL TECHNIQUE: A single intraoperative spot image was obtained during caudal nerve block. 7.5 seconds of fluoroscopic time utilized. COMPARISON: None. FINDINGS: A single lateral spot image of the sacrum was obtained during caudal nerve block. The needle tip projects near the distal sacrum. RAD/Fluor Guidance for Spine Inj IMPRESSION: Documentation of fluoroscopy use during caudal nerve block. Please see the pro cedure note for details. Reading Location: [facility]
[2024-06-18 11:04] VITALS: BP 108/57; PULSE 69; RESP 16; TEMP 36.2; O2SAT 96; BMI 44.3
[2024-06-18 11:25] LABS: Bedside Glucose 132 mg/dL (74-106)
[2024-06-18] MEDS: Lidocaine 1% (5 ml sdv) 5 ML Vial (11:35)
[2024-06-18] MEDS: 0.9% Normal Saline (Pres. free 10 ML Vial (11:35)
[2024-06-18] MEDS: MethylPREDNISolone Acetate 80 MG/ML Vial (11:35)
[2024-06-18] MEDS: Bupivacaine 0.25% 30 ML Vial (11:35)
--- NOTE | 2024-06-18 11:37 | OP.PCM_ITS ---
Operative Report (Standard) Operative Information Date of Procedure: 06/18/24 Pre-Operative Diagnosis: Lumbosacral radiculopathy, lumbosacral spinal stenosis, lumbosacral degenerative disc disease Post-Operative Diagnosis: Lumbosacral radiculopathy, lumbosacral spinal stenosis, lumbosacral degenerative disc disease Surgery/Procedure Performed: Diagnostic/therapeutic caudal epidural steroid injection under fluoroscopic guidance. crm functional analyst: No Type of Anesthesia: Local MAC and MAC RN Documented Start/Stop Times: Operation Date: 06/18/24 12:00 Case Time Into Pre-Op 06/18/24 10:35 Out of Pre-Op 06/18/24 11:16 Anesthesia Start 06/18/24 11:24 Into Room 06/18/24 11:24 Procedure Start 06/18/24 11:26 Procedure End 06/18/24 11:34 Procedure Start Time: 11:38 Procedure Stop Time: 11:38 Select all DRAINS/GRAFTS/IMPLANTS that apply: None Estimated Blood Loss: 0 Specimen collected: No Description of surgery: PROCEDURE PERFORMED: Diagnostic/therapeutic caudal epidural steroid injection under fluoroscopic guidance. ANESTHESIA: MAC. BLOOD LOSS: Minimal. COMPLICATIONS: None. DESCRIPTION OF PROCEDURE: History and physical of today was reviewed. Risks and benefits of the procedure were explained. The patient understood and agreed to proceed. Informed consent was obtained. IV inserted per routine protocol. The patient was taken to the operating room and placed in the prone position with a pillow positioned underneath the abdomen. The lower back and tailbone area was prepped and draped in a sterile fashion using iodine x3. Under fluoroscopy guidance on a lateral view, the caudal space was identified. The skin and subcutaneous tissue was anesthetized with approximately 3 mL of 1% lidocaine using a 25-gauge regular needle. Under direct visualization with fluoroscopy, using a 22-gauge 3-1/2-inch spinal needle, the needle was advanced via the skin through the sacral hiatus. The tip of the needle was passed through the sacrococcygeal ligament and advanced to approximately S4 area. After negative aspiration of blood or CSF, a total of 3 mL of contrast was injected to confirm correct placement of the needle as well as cephalad spread. The spread was followed to approximately L5 area. After confirmation on AP as well as lateral view and repeated negative aspiration, a total of 15 mL of preservative-free 0.125% Marcaine with 80 mg of Depo-Medrol was injected easily. The needle was then removed intact. The patient experienced no sign or symptoms of intrathecal or intravascular injection. The patient experienced no paresthesia. The procedure was completed without any apparent difficulty or any complications. The patient appeared to tolerate it well. ASSESSMENT AND PLAN: This is a 74-year-old female with lumbosacral radiculopathy, lumbosacral region degenerative disc disease, lumbosacral spinal stenosis, status post Diagn ostic/therapeutic caudal epidural steroid injection under fluoroscopic guidance, patient will continue her current medications, patient will follow-up in approximately 2 weeks for reevaluation. Surgical Findings: 0 Complications Complications: No Admit VTE Documentation VTE Present on Admission: No VTE Mechan Device Prophylaxis: None VTE Pharm Prophylaxis ordered?: No
[2024-06-18 11:40] VITALS: BP 108/57; BP 90/55; PULSE 68; RESP 16; TEMP 36.2; O2SAT 94
[2024-06-18 11:45] VITALS: BP 108/57; BP 98/55; PULSE 68; RESP 16; O2SAT 95
--- NOTE | 2024-06-18 11:47 | PCM.POST.ANE ---
Anesthesia: Postop Eval I Current Vital Signs Temperature: 97.4 F Pulse Rate: 78 Blood Pressure: 90/55 Respiratory Rate: 14 Pulse Ox: 98 Oxygen Delivery Method: Room Air Assessment Airway patent: Yes Spontaneous unlabored respirations: Yes Mental status: Awake nausea: No Vomiting: No Anesthesia Complication: No Fluid Hydration Crystalloid volume administer (ml): 10 Total IV fluid infused: 10 Progress Note Anesthesia document: Postop Eval 1 completed: Yes
[2024-06-18 11:48] VITALS: BP 90/55; PULSE 78; RESP 14; TEMP 36.3; O2SAT 98
[2024-06-18 11:50] VITALS: BP 108/57; BP 92/60; PULSE 67; RESP 16; O2SAT 94
[2024-06-18 11:55] VITALS: BP 108/57; BP 95/56; PULSE 69; RESP 16; TEMP 35.8; O2SAT 92
--- NOTE | 2024-06-18 12:26 | POSTOPAN2_ITS ---
Anesthesia Postop Eval I Sum Postop Eval Completion status Anesthesia document: Postop Eval 1 completed: Yes Anesthesia Postop Eval I Summary Anesthesia Postop Eval I Summary: Anesthesia Postop Eval I: Assessment Summary Airway patent Yes 06/18/24 11:48 JUMPBASTING LINING BASTER.HBARR Spontaneous unlabored Yes 06/18/24 11:48 JUMPBASTING LINING BASTER.HBARR respirations Mental status Awake 06/18/24 11:48 JUMPBASTING LINING BASTER.HBARR nausea No 06/18/24 11:48 JUMPBASTING LINING BASTER.HBARR Vomiting No 06/18/24 11:48 JUMPBASTING LINING BASTER.HBARR Anesthesia Postop Eval I: Fluid Summary Crystalloid volume administer 10 06/18/24 11:48 JUMPBASTING LINING BASTER.HBARR (ml) Colloids volume administered ( ml) Blood Product volume administered (ml) Total IV fluid infused 10 06/18/24 11:48 JUMPBASTING LINING BASTER.HBARR Anesthesia Postop Eval I: Summary Notes Anesthesia Complication No 06/18/24 11:48 JUMPBASTING LINING BASTER.HBARR Anesthesia Complication Comment: Post-operative progress note Anesthesia: Postop Eval II Evaluation Mental status: Awake Pain Level: 3 nausea: No Vomiting: No
--- NOTE | 2024-06-18 12:26 | PCM.POSTANE2 ---
Anesthesia Postop Eval I Sum Postop Eval Completion status Anesthesia document: Postop Eval 1 completed: Yes Anesthesia Postop Eval I Summary Anesthesia Postop Eval I Summary: Anesthesia Postop Eval I: Assessment Summary Airway patent Yes 06/18/24 11:48 ORACLE ERP DEVELOPER.HBARR Spontaneous unlabored Yes 06/18/24 11:48 ORACLE ERP DEVELOPER.HBARR respirations Mental status Awake 06/18/24 11:48 ORACLE ERP DEVELOPER.HBARR nausea No 06/18/24 11:48 ORACLE ERP DEVELOPER.HBARR Vomiting No 06/18/24 11:48 ORACLE ERP DEVELOPER.HBARR Anesthesia Postop Eval I: Fluid Summary Crystalloid volume administer 10 06/18/24 11:48 ORACLE ERP DEVELOPER.HBARR (ml) Colloids volume administered ( ml) Blood Product volume administered (ml) Total IV fluid infused 10 06/18/24 11:48 ORACLE ERP DEVELOPER.HBARR Anesthesia Postop Eval I: Summary Notes Anesthesia Complication No 06/18/24 11:48 ORACLE ERP DEVELOPER.HBARR Anesthesia Complication Comment: Post-operative progress note Anesthesia: Postop Eval II Evaluation Mental status: Awake Pain Level: 3 nausea: No Vomiting: No
== END 2024-06-18 12:51 | disposition home or self-care (01) ==
LOC: SDC 08:13 → AC 10:34
PROVIDERS: PCP Preventive Medicine Occupational Medicine; Referring Provider Anesthesiology Pain Medicine; Visit Provider Anesthesiology Pain Medicine
PROC: 3E0S3BZ Introduction of Anesthetic Agent into Epidural Space, Percutaneous Approach (ICD-10-PCS; CPT 62282; principal; 2024-06-18 11:55)
DX: M51.17 Intervertebral disc disorders with radiculopathy, lumbosacral region (principal); E11.9 Type 2 diabetes mellitus without complications; M48.07 Spinal stenosis, lumbosacral region
CPT/HCPCS: 62323; 64483; 77003; 82962; A4216

== ENCOUNTER 2024-09-03 08:41 | Day surgery (SDC) | payer MEDICAID, SELFPAY ==
--- NOTE | 2024-08-30 14:29 | PAT.ANE_ITS ---
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 When Was Last Pacemaker Check QUESTION #4 FULL TEXT: You/Your Family Experience fever (hyperthermia) with Anesthesia Last Oral Intake Last Oral intake: Last Oral Intake NPO since Meds taken in AM with sips of water? 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 Female Yes 08/30/24 10:57 HX of Motion Sickness Yes 08/30/24 10:57 HX of N/V After Surgery No 08/30/24 10:57 Non-Smoker No 08/30/24 10:57 Duration of Surgery greater No 08/30/24 10:57 than 60 minutes Number of Risk Factors 2 08/30/24 10:57 PONV Score Moderate Risk 08/30/24 10:57 Height & Weight Height & Weight: Anesthesia: Height & Weight Height 5 ft 4 in 07/31/24 08:00 Respiratory Assessment Respiratory Assessment - coat operator insulator: Respiratory Tract Infection Hx - coat operator insulator Hx Respiratory Tract Infection No 08/30/24 10:57 STOP Sleep Apnea STOP Sleep Apnea - coat operator insulator: STOP Sleep Apnea - coat operator insulator Hx Hypertension Yes: on meds 08/30/24 10:57 Hx Sleep Apnea No 08/30/24 10:57 CPAP No 06/18/24 11:40 BIPAP No 05/17/24 12:58 Do you snore loudly (louder No 08/30/24 10:57 than talking or can be heard Do you often feel tired/ No 08/30/24 10:57 fatigued/ sleepy during daytime? Has anyone observed you stop No 08/30/24 10:57 breathing during sleep? STOP Results Negative 08/30/24 10:57 QUESTION #5 FULL TEXT : Do you snore loudly (louder than talking or can be heard through closed doors)? 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 Specify any problems Hx of Preganancy in last 3 No 08/30/24 10:57 Months Nurse Filling Out Transfusion [email or web address] 08/30/24 10:57 & Questions: Date: 08/30/24 08/30/24 10:57 Time: 11:00 08/30/24 10:57 Patient unable to answer at this time (ie. confused, unrespo /Reproduction History /Reproductive History - coat operator insulator: /Reproductive Hx- coat operator insulator Hx Now No 08/30/24 10:57 Gestational Age (in weeks): EDC: Hx Hx Para Hx Section SAB No 08/30/24 10:57 [facility] Medical History (Updated 08/30/24 @ 10:57 by Lillie Lee) Arthritis Bipolar disorder Depression Anxiety Migraine headache Dietary restriction History of diverticulitis Chronic cough History of echocardiogram Hypertension Cardiology follow-up encounter COPD (chronic obstructive pulmonary disease) Shortness of breath on exertion Ambulates with cane High cholesterol Smoker History of edema History of CHF (congestive heart failure) Fall Hyperlipidemia Nicotine dependence History of pulmonary embolus (PE) (07/13/20) (HFpEF) heart failure with preserved ejection fraction (07/13/20) Pericardial effusion without cardiac tamponade (07/13/20) Essential (primary) hypertension Anasarca Degeneration of intervertebral disc of lumbosacral region Spondylosis of lumbosacral region without myelopathy or radiculopathy Bilateral sacroiliitis Sacrococcygeal disorders, not elsewhere classified Bipolar disorder Diabetes Home Medications ?Medication ?Instructions ?Recorded ?Last Taken ?Type docusate sodium 100 mg capsule 100 mg PO BID 12/14/17 04/08/24 History (DOK) escitalopram oxalate 10 mg tablet 10 mg PO QHS 8 04/08/24 History lisinopril 5 mg tablet 5 mg PO LUNCH #30 tabs 08/1204/09/24 Rx buspirone 10 mg tablet 20 mg PO TID Anxiety 1 04/08/24 History atenolol 50 mg tablet 50 mg PO BID 09/11/20 History gabapentin 800 mg tablet 800 mg PO TID 10/28/2106/18 History multivitamin with folic acid 400 1 tab PO DAILY 04/08/24 History mcg tablet (Daily-Dmitri (with folic acid)) sumatriptan succinate 100 mg tablet 100 mg PO Q2H PRN migraines 05/31/22 04/08/24 History furosemide 40 mg tablet 40 mg PO DAILY 08/08/2308/26 History amlodipine 5 mg tablet 2.5 mg PO .q 3 days 11/25/23 04/08/24 History bisacodyl 5 mg tablet,delayed 5 mg PO DAILY 11/25/23 0 04/08/24 History release buprenorphine 10 mcg/hour weekly 1 patch transdermal Q 7D 11/25/23 04/09/24 History transdermal patch metformin 500 mg tablet 1,000 mg PO BIDCM 11/25/23 0 04/08/24 History quetiapine 200 mg tablet 200 mg PO QHS 11/25/2304/08 History quetiapine 400 mg tablet (Seroquel) 400 mg PO QHS 11/0304/08/24 History albuterol sulfate 90 mcg/actuation 2 puff inhalation Q 6H PRN 03/27/24 04/08/24 Rx aerosol inhaler shortness of breath or wheez ing #8.5 grams pantoprazole 20 mg tablet,delayed 20 mg PO Q12H 3 luigi hs #180 tabs 04/26/24 Unknown Rx release lactulose 10 gram/15 mL oral 15 - 30 ml PO DAILY PRN 0 05/17/24 Unknown History solution constipation fluticasone fur. 100 mcg-umeclid 1 inh inhalation Q24H #60 ea 07/31/24 Unknown Rx 62.5 mcg-vilant 25 mcg inhalat.powder (Trelegy Ellipta) Allergy/AdvReac Type Severity Reaction Status Date / Time hydrocodone AdvReac NEEDS Verified 08/30/24 10:39 FOLLOW-UP oxycodone AdvReac NEEDS Verified 08/30/24 10:39 FOLLOW-UP [id number] Reductase AdvReac Constipatio Verified 08/30/24 10:39 Inhibitor n Family History Mother Schizophrenia Sister Depression Sister Depression Surgical History Corneal transplant status Hx of tonsillectomy History of knee replacement History of lumbar surgery History of cataract surgery History of tubal ligation Social History household members: other details: lives with son Smoking Status: Heavy Smoker (>10/day) alcohol intake: never substance use type: does not use caffeine: Yes Type: coffee Number of servings: 3 and tea Number of servings: 1 seatbelt use: sometimes do you feel safe at home: Yes Audit: Pertinent Findings Pertinent Findings Echo (EF%) pertinent findings: Echocardiogram from 07/14/2020: Interpretation Summary Normal LV size. Left ventricular systolic function is normal. The estimated ejection fraction is 60 %. Stage 1 diastolic dysfunction. Small pericardial effusion. There are no echocardiographic indications of cardiac tamponade. Recommendation Anesthesia Recommendation Anesthesia recommendation: OPTIMIZED for anesthesia (Low-risk procedure, will evaluate on DOS. Ideally patient should have further cardiac work-up done as it has been a while, but as the procedure is low risk it should be safe to proceed)
[2024-09-03] VITALS (8 sets, daily range): BP systolic 106–134; BP diastolic 53–78; PULSE 57–60; RESP 16–20; TEMP 36.4–37.1; O2SAT 93–97; BMI 44.5
[2024-09-03] MEDS: MethylPREDNISolone Acetate 80 MG/ML Vial (07:11)
[2024-09-03] MEDS: Lactated Ringers 1,000 ML 15 ML IV (09:27)
--- NOTE | 2024-09-03 09:41 | PCM.PRE.AN2 ---
ASA Classification* ASA Classification ASA Classification: 3 (hx CHF, hx PE, HTN, asthma/COPD, GERD, T2DM. Please use only versed/fentanyl for her ) Assessment & Plan Anesthesia* Anesthesia Assessment Anesthesia Assessment: Discussed sedation and/or anesthesia options, risks, benefits, and alternatives with patient/parents/legal guardian/POA. Questions invited. The patient/parents/legal guardian/POA seems to understand and agrees to proceed with anesthesia plan. Reviewed the physical assessment, medical history, allergy history and patient home medications list prior to surgery/procedure/anesthetic and documented any changes. Performed airway and anesthesia risk assessments. Anesthesia Type Anesthesia Type: MAC Anesthesia Focused Assessment* Temperature: 97.5 F Pulse Rate: 57 Blood Pressure: 134/73 Respiratory Rate: 20 Pulse Ox: 96 Oxygen Delivery Method: Room Air Airway Assessment Mouth opens: >3 cm Mallampati Score: III Teeth Condition: Missing (poor dentition) Neck Range of motion (ROM): Full ROM Focused Labs Anesthesia Preop lab: CBC WBC 11.3 K/mm3 (4.4-11.0) H 06/15/23 10:20 06/15/23 RBC 4.50 M/mm3 (4.2-5.4) 06/15/23 10:20 06/15/23 Hgb 12.4 g/dL (12.0-15.0) 06/15/23 10:20 06/15/23 Hct 38.5 % (37-47) 06/15/23 10:20 06/15/23 Plt Count 290 K/mm3 (150-450) 06/15/23 10:20 06/15/23 CHEMISTRY Potassium 4.1 mmol/L (3.5-5.1) 06/15/23 10:20 06/15/23 Sodium 137 mmol/L (136-145) 06/15/23 10:20 06/15/23 Magnesium 2.3 mg/dL (1.6-2.6) 07/13/20 13:08 07/13/20 BUN 19 mg/dL (7-18) H 06/15/23 10:20 06/15/23 Creatinine 1.09 mg/dL (0.55-1.02) H 06/15/23 10:20 06/15/23 Glucose 211 mg/dL (74-106) H 06/15/23 10:20 06/15/23 POC Glucose 132 mg/dL (74-106) H 06/18/24 10:57 06/18/24 TSH 2.92 uIU/mL (0.358-3.74) 05/31/22 14:35 05/31/22 COAG PT 13.9 SECONDS (11.7-14.9) 04/15/21 10:05 04/15/21 Pre-Assessment Diagnosis/Proposed Procedure Planned Operative Procedure(s): (R) Cervical MEDIAL BRANCH BLOCK AT C3 C4 C5 C6 UNDER FLUOROSCOPY Anesthesia History Anesthesia History - instrument inspector: Anesthesia History - instrument inspector Hx Hospitalization No 08/30/24 10:57 Any Problems With Anesthesia No 08/30/24 10:57 Cholinesterase deficiency No 08/30/24 10:57 You/Your Family Experience No 08/30/24 10:57 fever (hyperthermia) with Relationship Recent Exposure to Contagious No 09/03/24 09:24 Disease Does patient have nerve No 08/30/24 10:57 stimulator Patient instructed to have device shut off --Does patient have Pacemaker No 09/03/24 09:24 or ICD? When Was Last Pacemaker Check QUESTION #4 FULL TEXT: You/Your Family Experience fever (hyperthermia) with Anesthesia Last Oral Intake Last Oral intake: Last Oral Intake NPO since 05:00 09/03/24 09:24 Meds taken in AM with sips of Yes 09/03/24 09:24 water? Meds patient instructed to see medlist 09/03/24 09:24 take am of surgery PONV PONV - instrument inspector: PONV - instrument inspector Female Yes 08/30/24 10:57 HX of Motion Sickness Yes 08/30/24 10:57 HX of N/V After Surgery No 08/30/24 10:57 Non-Smoker No 08/30/24 10:57 Duration of Surgery greater No 08/30/24 10:57 than 60 minutes Number of Risk Factors 2 08/30/24 10:57 PONV Score Moderate Risk 08/30/24 10:57 Height & Weight Height & Weight: Anesthesia: Height & Weight Height 5 ft 3 in 09/03/24 09:24 Weight: 114 kg 09/03/24 09:24 Body Mass Index (BMI) 44.5 09/03/24 09:24 Respiratory Assessment Respiratory Assessment - instrument inspector: Respiratory Tract Infection Hx - instrument inspector Hx Respiratory Tract Infection No 08/30/24 10:57 STOP Sleep Apnea STOP Sleep Apnea - instrument inspector: STOP Sleep Apnea - instrument inspector Hx Hypertension Yes: on meds 08/30/24 10:57 Hx Sleep Apnea No 08/30/24 10:57 CPAP No 06/18/24 11:40 BIPAP No 05/17/24 12:58 Do you snore loudly (louder No 08/30/24 10:57 than talking or can be heard Do you often feel tired/ No 08/30/24 10:57 fatigued/ sleepy during daytime? Has anyone observed you stop No 08/30/24 10:57 breathing during sleep? STOP Results Negative 08/30/24 10:57 QUESTION #5 FULL TEXT : Do you snore loudly (louder than talking or can be heard through closed doors)? Tobacco Use History Tobacco Use History - instrument inspector: Tobacco Use History - instrument inspector Tobacco Use Smoking Status Heavy Smoker (>10/day) 08/30/24 10:57 Hx Tobacco Use Yes 08/30/24 10:57 Years Smoking Packs Smoked per Day Smoking Cessation Date was within the last 15 years Hx Smoking Cessation Date 08/22/20 08/30/24 10:57 Hx Smoking Cessation No 08/30/24 10:57 Counseling Hematologic Medial History Hematologic Hx - instrument inspector: Hematologic Medical Hx - puttier Hx of Blood Transfusion No 08/30/24 10:57 Hx of Transfusion in last 3 No 08/30/24 10:57 Months Date of Last Transfusion (if within last 3 months) Ever experience any problems No 08/30/24 10:57 with transfusion(s)? Specify any problems Hx of Preganancy in last 3 No 08/30/24 10:57 Months Nurse Filling Out Transfusion [email or web address] 08/30/24 10:57 & Questions: Date: 08/30/24 08/30/24 10:57 Time: 11:00 08/30/24 10:57 Patient unable to answer at this time (ie. confused, unrespo /Reproduction History /Reproductive History - instrument inspector: /Reproductive Hx- instrument inspector Hx Now No 08/30/24 10:57 Gestational Age (in weeks): EDC: Hx Hx Para Hx Section SAB No 08/30/24 10:57 Active Medications Active Medications: Current Medications Generic Name Dose Route Start Last Admin Trade Name Freq PRN Reason Stop Dose Admin Lactated Ringer's 1,000 mls @ 15 mls/hr 09/03/24 08:45 09/03/24 09:27 IV 15 mls/hr .Q48H [place] Administration PFSH Medical History (Updated 08/30/24 @ 10:57 by Lillie Lee) Arthritis Bipolar disorder Depression Anxiety Migraine headache Dietary restriction History of diverticulitis Chronic cough History of echocardiogram Hypertension Cardiology follow-up encounter COPD (chronic obstructive pulmonary disease) Shortness of breath on exertion Ambulates with cane High cholesterol Smoker History of edema History of CHF (congestive heart failure) Fall Hyperlipidemia Nicotine dependence History of pulmonary embolus (PE) (07/13/20) (HFpEF) heart failure with preserved ejection fraction (07/13/20) Pericardial effusion without cardiac tamponade (07/13/20) Essential (primary) hypertension Anasarca Degeneration of intervertebral disc of lumbosacral region Spondylosis of lumbosacral region without myelopathy or radiculopathy Bilateral sacroiliitis Sacrococcygeal disorders, not elsewhere classified Bipolar disorder Diabetes Home Medications ?Medication ?Instructions ?Recorded ?Last Taken ?Type docusate sodium 100 mg capsule 100 mg PO BID 12/14/17 04/08/24 History ([facility]OK) escitalopram oxalate 10 mg tablet 10 mg PO QHS 12/14/17 04/08/24 History lisinopril 5 mg tablet 5 mg PO LUNCH #30 tabs 08/12/20 04/09/24 Rx buspirone 10 mg tablet 20 mg PO TID Anxiety 08/22/20 09/03/24 History atenolol 50 mg tablet 50 mg PO BID 09/11/20 09/03/24 History gabapentin 800 mg tablet 800 mg PO TID 10/28/21 09/03/24 History multivitamin with folic acid 400 1 tab PO DAILY 05/31/22 04/08/24 History mcg tablet (Daily-Dmitri (with folic acid)) sumatriptan succinate 100 mg tablet 100 mg PO Q2H PRN migraines 05/31/22 04/08/24 History furosemide 40 mg tablet 40 mg PO DAILY 08/08/23 04/08/24 History amlodipine 5 mg tablet 2.5 mg PO .q 3 days 11/25/23 04/08/24 History bisacodyl 5 mg tablet,delayed 5 mg PO DAILY 11/25/23 04/08/24 History release buprenorphine 10 mcg/hour weekly 1 patch transdermal Q7D 11/25/23 04/09/24 History transdermal patch metformin 500 mg tablet 1,000 mg PO BIDCM 11/25/23 04/08/24 History quetiapine 200 mg tablet 200 mg PO QHS 11/25/23 04/08/24 History quetiapine 400 mg tablet (Seroquel) 400 mg PO QHS 11/25/23 04/08/24 History albuterol sulfate 90 mcg/actuation 2 puff inhalation Q6H PRN 03/27/24 04/08/24 Rx aerosol inhaler shortness of breath or wheezing #8.5 grams pantoprazole 20 mg tablet,delayed 20 mg PO Q12H 3 months #180 tabs 04/26/24 09/03/24 Rx release lactulose 10 gram/15 mL oral 15 - 30 ml PO DAILY PRN 05/17/24 Unknown History solution constipation fluticasone fur. 100 mcg-umeclid 1 inh inhalation Q24H #60 ea 07/31/24 Unknown Rx 62.5 mcg-vilant 25 mcg inhalat.powder (Trelegy Ellipta) Allergy/AdvReac Type Severity Reaction Status Date / Time hydrocodone AdvReac NEEDS Verified 09/03/24 09:13 FOLLOW-UP oxycodone AdvReac NEEDS Verified 09/03/24 09:13 FOLLOW-UP [place] Reductase AdvReac Constipatio Verified 09/03/24 09:13 Inhibitor n Family History Mother Schizophrenia Sister Depression Sister Depression Surgical History Corneal transplant status Hx of tonsillectomy History of knee replacement History of lumbar surgery History of cataract surgery History of tubal ligation Social History household members: other details: lives with son Smoking Status: Heavy Smoker (>10/day) alcohol intake: never substance use type: does not use caffeine: Yes Type: coffee Number of servings: 3 and tea Number of servings: 1 seatbelt use: sometimes do you feel safe at home: Yes Review of Systems (Anesthesia) ROS Narrative System reviewed and no additional complaints, except as documented.
[2024-09-03 09:46] LABS: Bedside Glucose 138 mg/dL (74-106)
--- NOTE | 2024-09-03 10:00 | RAD_ITS ---
PROCEDURE: CERV SPINE 4 OR 5 VIEWS 09/03/2024 REASON FOR EXAM: CERVICAL MEDIAL BRACNCH BLOCK TECHNIQUE: Single fluoroscopic view of the cervical spine was performed. COMPARISON: 06/15/2023. FINDINGS: Single fluoroscopic view of the cervical spine. 15.8 seconds. 3.70 mGy. RAD/Cerv Spine 4 or 5 Views IMPRESSION: As above. Reading Location: [id number]
[2024-09-03] MEDS: Bupivacaine 0.25% 30 ML Vial (10:06)
--- NOTE | 2024-09-03 10:09 | PCM.OPRPT ---
Operative Report (Standard) Operative Information Date of Procedure: 09/03/24 Pre-Operative Diagnosis: 0 Post-Operative Diagnosis: 0 Surgery/Procedure Performed: 0 recreational therapy technician: No Type of Anesthesia: Local MAC RN Documented Start/Stop Times: Operation Date: 09/03/24 10:25 Case Time Into Pre-Op 09/03/24 08:43 Anesthesia Start 09/03/24 09:59 Into Room 09/03/24 09:59 Procedure Start 09/03/24 10:04 Procedure End 09/03/24 10:08 Procedure Start Time: 10:09 Procedure Stop Time: 10:09 Select all DRAINS/GRAFTS/IMPLANTS that apply: None Estimated Blood Loss: 0 Specimen collected: No Description of surgery: PREOPERATIVE DIAGNOSIS: Cervical spondylosis, cervical degenerative disc disease, cervical facet arthropathy POSTOPERATIVE DIAGNOSIS:Cervical spondylosis, cervical degenerative disc disease, cervical facet arthropathy PROCEDURE PERFORMED: Right sided cervical medial branch block at C3, C4, C5, and C6. ANESTHESIA: MAC. BLOOD LOSS: Minimal. COMPLICATIONS: None. DESCRIPTION OF PROCEDURE: History and physical of today was reviewed. Risks and benefits of the procedure were explained. The patient understood and agreed to proceed. Informed consent was obtained. IV inserted per routine protocol. The patient was taken to the operating room and placed in the prone position with a pillow positioned underneath the chest. The neck area was prepped and draped in a sterile fashion using iodine x3. Under fluoroscopy guidance on an AP view, the C3 through C6 vertebral bodies were visualized at approximately 10-degree angle, starting on the right C3, ending on the right C6, passing through the C4 and C5. Using a 25-gauge 3-1/2-inch spinal needle, the needle was advanced via the skin. The tip of the needle was maneuvered and directed towards the epiphyseal junction of each corresponding vertebra. Once the tip of the needle was at the vicinity of the medial branch, the needle was pulled approximately 2 mm off the bone. After negative aspiration of blood or CSF and confirmation on AP, oblique as well as lateral view, a total of 4 mL of preservative-free 0.25% Marcaine with 80 mg of Depo-Medrol was injected in divided doses between those four levels. The needles were then removed intact. The patient experienced no sign or symptoms of intrathecal or intravascular injection. The patient experienced no paresthesia. The procedure was completed without any apparent difficulty or any complications. The patient appeared to tolerate it well. ASSESSMENT AND PLAN: This is a 74-year-old female with cervical spondylosis, cervical degenerative disc disease, cervical facet arthropathy status post right-sided cervical medial branch block C3-C6, patient will continue her current medications, patient will follow-up in approximately 1 to 2 weeks for reevaluation. Surgical Findings: 0 Complications Complications: No Admit VTE Documentation VTE Present on Admission: No VTE Mechan Device Prophylaxis: None VTE Pharm Prophylaxis ordered?: No
--- NOTE | 2024-09-03 10:21 | PCM.POST.ANE ---
Anesthesia: Postop Eval I Current Vital Signs Temperature: 97.6 F Pulse Rate: 60 Blood Pressure: 120/65 Respiratory Rate: 16 Pulse Ox: 97 Oxygen Delivery Method: Room Air Assessment Airway patent: Yes Spontaneous unlabored respirations: Yes Mental status: Awake and Calm nausea: No Vomiting: No Anesthesia Complication: No Fluid Hydration Crystalloid volume administer (ml): 200 Total IV fluid infused: 200 Progress Note Anesthesia document: Postop Eval 1 completed: Yes
--- NOTE | 2024-09-03 10:39 | PCM.POSTANE2 ---
Anesthesia Postop Eval I Sum Postop Eval Completion status Anesthesia document: Postop Eval 1 completed: Yes Anesthesia Postop Eval I Summary Anesthesia Postop Eval I Summary: Anesthesia Postop Eval I: Assessment Summary Airway patent Yes 09/03/24 10:22 [email or web address] Spontaneous unlabored Yes 09/03/24 10:22 [email or web address] respirations Mental status Awake,Calm 09/03/24 10:22 [email or web address] nausea No 09/03/24 10:22 [email or web address] Vomiting No 09/03/24 10:22 [email or web address] Anesthesia Postop Eval I: Fluid Summary Crystalloid volume administer 200 09/03/24 10:22 [email or web address] (ml) Colloids volume administered ( ml) Blood Product volume administered (ml) Total IV fluid infused 200 09/03/24 10:22 [email or web address] Anesthesia Postop Eval I: Summary Notes Anesthesia Complication No 09/03/24 10:22 [email or web address] Anesthesia Complication Comment: Post-operative progress note Anesthesia: Postop Eval II Evaluation Mental status: Awake Pain Level: 0 nausea: No Vomiting: No Complications Anesthesia Complication: No
== END 2024-09-03 11:26 | disposition home or self-care (01) ==
LOC: SDC 08:42 → AC 08:43
PROVIDERS: PCP Preventive Medicine Occupational Medicine; Referring Provider Anesthesiology Pain Medicine; Visit Provider Anesthesiology Pain Medicine
PROC: 3E0S3BZ Introduction of Anesthetic Agent into Epidural Space, Percutaneous Approach (ICD-10-PCS; CPT 62322; principal; 2024-09-03 10:20)
DX: M47.812 Spondylosis without myelopathy or radiculopathy, cervical region (principal); I11.0 Hypertensive heart disease with heart failure; I50.30 Unspecified diastolic (congestive) heart failure; J44.9 Chronic obstructive pulmonary disease, unspecified; E11.9 Type 2 diabetes mellitus without complications; M50.31 Other cervical disc degeneration, high cervical region; M46.92 Unspecified inflammatory spondylopathy, cervical region; F17.200 Nicotine dependence, unspecified, uncomplicated; Z79.84 Long term (current) use of oral hypoglycemic drugs; Z79.899 Other long term (current) drug therapy
CPT/HCPCS: 64492; 64491; 64490; 72050; 82962

== ENCOUNTER → 2024-09-12 | Outpatient (CLI) | payer MEDICAID, SELFPAY ==
[2024-09-12 14:35] LABS: Absolute Lymphocyte Count 2.22 X10^3/uL (0.83-4.51); Absolute Neutrophil Count 6.5 X10^3/uL (2.0-7.7); Basophil# 0.06 X10^3/uL; Basophil% 0.6 % (0-1); Eosinophil# 0.35 X10^3/uL; Eosinophils% 3.6 % (0-5); Hematocrit 40.3 % (37-47); Hemoglobin 13.2 g/dL (12.0-15.0); Lymphocyte # 2.22 X10^3/ul (0.83-4.51); Lymphocyte % 22.5 % (19-41); Mean Corp Hgb Conc 32.8 g/dL (32-36); Mean Corpuscular Hgb 28.9 pg (27.0-32.0); Mean Corpuscular Volume 88.2 fL (81-99); Mean Platelet Vol. 9.7 fl (6.2-12.0); Monocyte# 0.69 X10^3/uL; NRBC Flagged by Analyzer 0 % (0-5); Neutrophil # 6.46 X10^3/uL (2.7-7.7); Neutrophil % 65.6 % (47-70); Platelet Count 235 K/mm3 (150-450); RBC Distribution Width CV 15.3 % (11.6-14.6); Red Blood Count 4.57 M/mm3 (4.2-5.4); White Blood Count 9.9 K/mm3 (4.4-11.0)
[2024-09-12 15:13] LABS: ALB/GLOB Ratio 1.6 RATIO (0.9-2.4); AST(SGOT) 13 U/L (<=31); Alanine Aminotransfer ALT/SGPT 11 U/L (<=34); Albumin, Serum 4.1 g/dL (3.4-4.8); Alkaline Phosphatase 108 U/L (35-104); BUN 23 mg/dL (4-19); BUN/Creat Ratio 24.3 RATIO (10-20); Calcium,Total 9.3 mg/dL (7.6-11.0); Cholesterol 226 mg/dL (<=200); Creatinine, Serum 0.94 mg/dL (0.70-1.20); EST Glomerular Filtration Rate 63 (>60); Globulin 2.6 g/dL (2.2-4.2); Glucose 95 mg/dL (70-99); Protein, Total 6.6 g/dL (5.9-8.4); Total Bilirubin 0.35 mg/dL (0.00-1.30); Triglycerides 252 mg/dL
[2024-09-12 15:14] LABS: Anion Gap 13 (5-15); Chloride 97 mmol/L (98-108); High Density Lipoprotein 35 mg/dL; Low Density Lipoprotein Calc. 141 mg/dL; Magnesium 2.1 mg/dL (1.5-2.2); Potassium 4.5 mmol/L (3.3-5.1); Pro- Brain NATRIURETIC PEPTIDE 265 pg/mL (<=1800); Sodium Level 136 mmol/L (133-145); Very Low Density Lipoprotein 50 mg/dL (5-40); cholesterol:hdl ratio screen 6.51
[2024-09-12 15:33] LABS: Microalbumin,Random Urine < 12.0 mg/L (NO RANGE EST.); Microalbumin:Creatinine Ratio UNABLE TO CALCULATE mg/g CRE
== END | disposition home or self-care (01) ==
LOC: LAB 13:48
PROVIDERS: PCP Nurse Practitioner Family; Referring Provider Nurse Practitioner Family; Visit Provider Nurse Practitioner Family
DX: I10 Essential (primary) hypertension (principal); E11.9 Type 2 diabetes mellitus without complications; E78.2 Mixed hyperlipidemia
CPT/HCPCS: 36415; 80053; 80061; 82043; 82570; 83735; 83880; 85025

== ENCOUNTER → 2024-09-18 | Outpatient (CLI) | payer MEDICAID, SELFPAY ==
--- NOTE | 2024-09-18 12:58 | ECHOD_ITS ---
Reason For Study Reason For Study: SOB Procedure This was a 2D Doppler, Color Flow transthoracic echocardiogram. Exam performed in department. Left Ventricle Normal LV size. The left ventricular ejection fraction is 60 %. No regional wall motion abnormalities noted. Right Ventricle Normal RV size. Normal systolic function. Atria Normal left atrium. Normal right atrium. Mitral Valve Normal mitral valve. Mild (1+) eccentric mitral valve insufficiency. Tricuspid Valve Normal tricuspid valve. Mild (1+) tricuspid valve insufficiency. Pulmonary artery systolic pressure is 34 mmHg. Aortic Valve Trisinus/trileaflet aortic valve. Pulmonic Valve Normal pulmonic valve. Great Vessels Normal aortic root. The pulmonary artery is normal size. Inferior vena cava collapse with respiration. Pericardium/Pleural No pericardial effusion. MMode/2D Measurements & Calculations LVIDd: 4.9 cm IVSd: 1.1 cm Ao root diam: 3.7 cm LVIDs: 3.7 cm LVPWd: 1.2 cm RVDd: 3.7 cm FS: 24.3 % LAV(MOD-bp): 64.1 ml LVAd ap4: 28.4 cm2 SV(MOD-sp4): 52.9 ml LAV(MOD-bp) Indexed: 29.9 ml/m2 LVLd ap4: 7.8 cm SI(MOD-sp4): 24.7 ml/m2 LAV(MOD-sp2): 65.9 ml EDV(MOD-sp4): 89.2 ml LAV(MOD-sp4): 57.0 ml EDV(sp4-el): 87.2 ml LVAs ap4: 16.2 cm2 LVLs ap4: 6.3 cm ESV(MOD-sp4): 36.3 ml ESV(sp4-el): 35.3 ml EF(MOD-sp4): 59.3 % EF(sp4-el): 59.5 % SV(sp4-el): 51.9 ml LA A4 area: 19.6 cm2 LA dimension(2D): 5.8 cm RA A4 area: 15.9 cm2 TAPSE: 1.8 cm Time Measurements MV dec time: 0.19 sec Doppler Measurements & Calculations MV E max doron: 100.0 cm/sec Lat Peak E' Doron: 7.3 cm/sec Med Peak E' Doron: 5.3 cm/sec MV A max doron: 96.3 cm/sec E/E' lat: 13.7 E/E' med: 19.0 MV E/A: 1.0 MV V2 max: 107.2 cm/sec MV P1/2t max doron: 104.2 cm/sec Ao V2 max: 141.9 cm/sec MV max P.6 mmHg MV P1/2t: 73.8 msec Ao max P.1 mmHg MV V2 mean: 53.5 cm/sec Ao V2 mean: 96.2 cm/sec MV mean P.4 mmHg MV dec slope: 413.3 cm/sec2 Ao mean P.2 mmHg MV V2 VTI: 48.3 cm MVA(P1/2t): 3.0 cm2 Ao V2 VTI: 36.8 cm AV (velocity ratio): 0.80 LV V1 max: 117.7 cm/sec MR max doron: 533.7 cm/sec PA V2 max: 105.7 cm/sec LV V1 max P.5 mmHg MR max P.0 mmHg LV V1 mean P.0 mmHg MR mean doron: 434.5 cm/sec LV V1 mean: 82.1 cm/sec MR mean P.2 mmHg LV V1 VTI: 29.4 cm MR VTI: 208.3 cm TR max doron: 275.2 cm/sec TR max P.3 mmHg ECHO/Echo Complete Interpretation Summary Normal LV size. The left ventricular ejection fraction is 60 %. Mild (1+) tricuspid valve insufficiency. Pulmonary artery systolic pressure is 34 mmHg. Structurally normal valves. Ordering Physician: Xena Ramírez Referring Physician: Xena Ramírez Performed By: Michael Rios RCS
== END | disposition home or self-care (01) ==
LOC: CVS 12:58
PROVIDERS: PCP Nurse Practitioner Family; Referring Provider Nurse Practitioner Family; Visit Provider Nurse Practitioner Family
DX: R06.02 Shortness of breath (principal)
CPT/HCPCS: 93306

== ENCOUNTER 2024-12-17 09:54 | Day surgery (SDC) | payer MEDICAID, SELFPAY ==
--- NOTE | 2024-12-11 16:04 | PAT.ANE_ITS ---
Pre-Assessment Diagnosis/Proposed Procedure Planned Operative Procedure(s): CAUDAL EPIDURAL STEROID INJECTION UNDER FLUOROSCOPY Anesthesia History Anesthesia History - nurse administrator: Anesthesia History - nurse administrator Hx Hospitalization No 12/11/24 14:33 Any Problems With Anesthesia No 12/11/24 14:33 Cholinesterase deficiency No 12/11/24 14:33 You/Your Family Experience No 12/11/24 14:33 fever (hyperthermia) with Relationship Recent Exposure to Contagious No 09/03/24 09:24 Disease Does patient have nerve No 12/11/24 14:33 stimulator Patient instructed to have device shut off --Does patient have Pacemaker or ICD? When Was Last Pacemaker Check QUESTION #4 FULL TEXT: You/Your Family Experience fever (hyperthermia) with Anesthesia Last Oral Intake Last Oral intake: Last Oral Intake NPO since Meds taken in AM with sips of water? 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 - nurse administrator: PONV - nurse administrator Female Yes 12/11/24 14:33 HX of Motion Sickness No 12/11/24 14:33 HX of N/V After Surgery No 12/11/24 14:33 Non-Smoker No 12/11/24 14:33 Duration of Surgery greater No 12/11/24 14:33 than 60 minutes Number of Risk Factors 1 12/11/24 14:33 PONV Score Low Risk 12/11/24 14:33 Height & Weight Height & Weight: Anesthesia: Height & Weight Height 5 ft 3 in 09/12/24 12:38 Respiratory Assessment Respiratory Assessment - nurse administrator: Respiratory Tract Infection Hx - nurse administrator Hx Respiratory Tract Infection No 12/11/24 14:33 STOP Sleep Apnea STOP Sleep Apnea - nurse administrator: STOP Sleep Apnea - nurse administrator Hx Hypertension Yes: CONTROLLED WITH MED 12/11/24 14:33 Hx Sleep Apnea No 12/11/24 14:33 CPAP No 12/11/24 14:33 BIPAP No 12/11/24 14:33 Do you snore loudly (louder No 12/11/24 14:33 than talking or can be heard Do you often feel tired/ No 12/11/24 14:33 fatigued/ sleepy during daytime? Has anyone observed you stop No 12/11/24 14:33 breathing during sleep? STOP Results Negative 12/11/24 14:33 QUESTION #5 FULL TEXT : Do you snore loudly (louder than talking or can be heard through closed doors)? Tobacco Use History Tobacco Use History - nurse administrator: Tobacco Use History - nurse administrator Tobacco Use Smoking Status Heavy Smoker (>10/day) 12/11/24 14:33 Hx Tobacco Use Yes 12/11/24 14:33 Years Smoking Packs Smoked per Day Smoking Cessation Date was within the last 15 years Hx Smoking Cessation Date 12/11/24 14:33 Hx Smoking Cessation No 12/11/24 14:33 Counseling Hematologic Medial History Hematologic Hx - nurse administrator: Hematologic Medical Hx - hot saw helper Hx of Blood Transfusion No 12/11/24 14:33 Hx of Transfusion in last 3 No 12/11/24 14:33 Months Date of Last Transfusion (if within last 3 months) Ever experience any problems No 12/11/24 14:33 with transfusion(s)? Specify any problems Hx of Preganancy in last 3 N/A 12/11/24 14:33 Months Nurse Filling Out Transfusion NBUCHER 12/11/24 14:33 & Questions: Date: 12/11/24 12/11/24 14:33 Time: 14:34 12/11/24 14:33 Patient unable to answer at this time (ie. confused, unrespo /Reproduction History /Reproductive History - nurse administrator: /Reproductive Hx- nurse administrator Hx Now Gestational Age (in weeks): EDC: Hx Hx Para Hx Section SAB No 12/11/24 14:33 PFSH Medical History Walker as ambulation aid Uses wheelchair Gastric reflux Arthritis Bipolar disorder Depression Anxiety Migraine headache Dietary restriction History of diverticulitis Chronic cough History of echocardiogram Hypertension Cardiology follow-up encounter COPD (chronic obstructive pulmonary disease) Shortness of breath on exertion Ambulates with cane High cholesterol Smoker History of edema History of CHF (congestive heart failure) Fall Hyperlipidemia Nicotine dependence History of pulmonary embolus (PE) (07/13/20) (HFpEF) heart failure with preserved ejection fraction (07/13/20) Pericardial effusion without cardiac tamponade (07/13/20) Essential (primary) hypertension Anasarca Degeneration of intervertebral disc of lumbosacral region Spondylosis of lumbosacral region without myelopathy or radiculopathy Bilateral sacroiliitis Sacrococcygeal disorders, not elsewhere classified Bipolar disorder Diabetes Home Medications ?Medication ?Instructions ?Recorded ?Last Taken ?Type docusate sodium 100 mg capsule 100 mg PO BID 12/14/17 04/08/24 History (DOK) escitalopram oxalate 10 mg tablet 10 mg PO QHS 8 04/08/24 History lisinopril 5 mg tablet 5 mg PO LUNCH #30 tabs 08/1204/09/24 Rx buspirone 10 mg tablet 20 mg PO TID Anxiety 1 09/03/24 History atenolol 50 mg tablet 50 mg PO BID 09/11/20 History gabapentin 800 mg tablet 800 mg PO TID 10/28/2109/03 History multivitamin with folic acid 400 1 tab PO DAILY 04/08/24 History mcg tablet (Daily-Dmitri (with folic acid)) sumatriptan succinate 100 mg tablet 100 mg PO Q2H PRN migraines 05/31/22 04/08/24 History furosemide 40 mg tablet 40 mg PO DAILY 08/08/2308/26 History bisacodyl 5 mg tablet,delayed 5 mg PO DAILY 11/25/23 0 04/08/24 History release buprenorphine 10 mcg/hour weekly 1 patch transdermal Q 7D 11/25/23 04/09/24 History transdermal patch metformin 500 mg tablet 1,000 mg PO BIDCM 11/25/23 0 04/08/24 History quetiapine 200 mg tablet 200 mg PO QHS 11/25/2304/08 History quetiapine 400 mg tablet (Seroquel) 400 mg PO QHS 11/0304/08/24 History albuterol sulfate 90 mcg/actuation 2 puff inhalation Q 6H PRN 03/27/24 04/08/24 Rx aerosol inhaler shortness of breath or wheez ing #8.5 grams pantoprazole 20 mg tablet,delayed 20 mg PO Q12H 3 luigi hs #180 tabs 04/26/24 09/03/24 Rx release lactulose 10 gram/15 mL oral 15 - 30 ml PO DAILY PRN 0 05/17/24 Unknown History solution constipation alendronate 70 mg tablet 70 mg PO QWEEK 09/12/24 Unkn own History calcium 500 mg (as 1 tab PO BID 09/12/24 Unknow n History carbonate)-vitamin D3 5 mcg (200 unit) tablet (Oyster Shell Calcium-Vitamin D3) cetirizine 10 mg tablet 10 mg PO Q12H PRN allergy sy mptoms 09/12/24 Unknown History ezetimibe 10 mg tablet 10 mg PO QDAY 09/12/24 Unkno wn History hydroxyzine HCl 10 mg tablet 10 mg PO 4X/DAY 09/12/24 Unknown History tizanidine 4 mg tablet 4 mg PO BID 09/12/24 Unknown History mometasone-formoterol HFA 200 2 puff inhalation BID #1 3 grams 09/18/24 Unknown Rx mcg-5 mcg/actuation aerosol inhaler (Dulera) tiotropium bromide 2.5 2 puff inhalation QDAY #4 gr ams 09/20/24 Unknown Rx mcg/actuation mist for inhalation (Spiriva Respimat) Allergy/AdvReac Type Severity Reaction Status Date / Time hydrocodone AdvReac NEEDS Verified 12/11/24 14:28 FOLLOW-UP oxycodone AdvReac NEEDS Verified 12/11/24 14:28 FOLLOW-UP [id number] Reductase AdvReac Constipatio Verified 12/11/24 14:28 Inhibitor n Family History Mother Schizophrenia Sister Depression Sister Depression Surgical History Corneal transplant status Hx of tonsillectomy History of knee replacement History of lumbar surgery History of cataract surgery History of tubal ligation Social History household members: other details: lives with son Smoking Status: Heavy Smoker (>10/day) alcohol intake: never substance use type: does not use caffeine: Yes Type: coffee Number of servings: 3 and tea Number of servings: 1 seatbelt use: sometimes do you feel safe at home: Yes Audit: Pertinent Findings Pertinent Findings EKG Perinent findings: 12/23/2020. Sinus rhythm. Negative precordial T waves. Echo (EF%) pertinent findings: 09/18/2024. EF is 60%. PASP is 34 mmHg. No aortic stenosis noted. Consult pertinent findings: September 12, 2024. 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 1. Heart failure with preserved EF. Last echo from July 23 showed EF of 60%. She continues to have shortness of breath which is likely multifactorial we will continue to monitor. Check pending echo. (See above) 2. Hypertension-controlled. Reduce amlodipine to 2.5 mg. 3. History of PE-right subsegmental PE in the right middle lobe. Patient is now off her anticoagulation. Recommendation Anesthesia Recommendation Anesthesia recommendation: OPTIMIZED for anesthesia
[2024-12-17] VITALS (8 sets, daily range): BP systolic 110–136; BP diastolic 59–82; PULSE 52–64; RESP 14–20; TEMP 36.2–37; O2SAT 92–94; BMI 45.3
[2024-12-17] MEDS: Lactated Ringers 1,000 ML 15 ML IV (11:49)
--- NOTE | 2024-12-17 11:54 | PCM.PRE.AN2 ---
ASA Classification* ASA Classification ASA Classification: 3 Assessment & Plan Anesthesia* Anesthesia Assessment Anesthesia Assessment: Discussed sedation and/or anesthesia options, risks, benefits, and alternatives with patient/parents/legal guardian/POA. Questions invited. The patient/parents/legal guardian/POA seems to understand and agrees to proceed with anesthesia plan. Reviewed the physical assessment, medical history, allergy history and patient home medications list prior to surgery/procedure/anesthetic and documented any changes. Performed airway and anesthesia risk assessments. Anesthesia Type Anesthesia Type: MAC Anesthesia Focused Assessment* Airway Assessment Mouth opens: >3 cm Mallampati Score: II Labs Anesthesia Preop lab: CBC WBC 9.9 K/mm3 (4.4-11.0) 09/12/24 13:58 09/12/24 RBC 4.57 M/mm3 (4.2-5.4) 09/12/24 13:58 09/12/24 Hgb 13.2 g/dL (12.0-15.0) 09/12/24 13:58 09/12/24 Hct 40.3 % (37-47) 09/12/24 13:58 09/12/24 Plt Count 235 K/mm3 (150-450) 09/12/24 13:58 09/12/24 CHEMISTRY Potassium 4.5 mmol/L (3.3-5.1) 09/12/24 13:58 09/12/24 Sodium 136 mmol/L (133-145) 09/12/24 13:58 09/12/24 Magnesium 2.1 mg/dL (1.5-2.2) 09/12/24 13:58 09/12/24 BUN 23 mg/dL (4-19) H 09/12/24 13:58 09/12/24 Creatinine 0.94 mg/dL (0.70-1.20) 09/12/24 13:58 09/12/24 Glucose 95 mg/dL (70-99) 09/12/24 13:58 09/12/24 POC Glucose 138 mg/dL (74-106) H 09/03/24 09:23 09/03/24 TSH 2.92 uIU/mL (0.358-3.74) 05/31/22 14:35 05/31/22 COAG PT 13.9 SECONDS (11.7-14.9) 04/15/21 10:05 04/15/21 Pre-Assessment Diagnosis/Proposed Procedure Planned Operative Procedure(s): CAUDAL EPIDURAL STEROID INJECTION UNDER FLUOROSCOPY Anesthesia History Anesthesia History - import export clerk: Anesthesia History - import export clerk Hx Hospitalization No 12/11/24 14:33 Any Problems With Anesthesia No 12/11/24 14:33 Cholinesterase deficiency No 12/11/24 14:33 You/Your Family Experience No 12/11/24 14:33 fever (hyperthermia) with Relationship Recent Exposure to Contagious No 09/03/24 09:24 Disease Does patient have nerve No 12/11/24 14:33 stimulator Patient instructed to have device shut off --Does patient have Pacemaker or ICD? When Was Last Pacemaker Check QUESTION #4 FULL TEXT: You/Your Family Experience fever (hyperthermia) with Anesthesia Last Oral Intake Last Oral intake: Last Oral Intake NPO since Meds taken in AM with sips of water? 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 - import export clerk: PONV - import export clerk Female Yes 12/11/24 14:33 HX of Motion Sickness No 12/11/24 14:33 HX of N/V After Surgery No 12/11/24 14:33 Non-Smoker No 12/11/24 14:33 Duration of Surgery greater No 12/11/24 14:33 than 60 minutes Number of Risk Factors 1 12/11/24 14:33 PONV Score Low Risk 12/11/24 14:33 Height & Weight Height & Weight: Anesthesia: Height & Weight Height 5 ft 3 in 09/12/24 12:38 Respiratory Assessment Respiratory Assessment - import export clerk: Respiratory Tract Infection Hx - import export clerk Hx Respiratory Tract Infection No 12/11/24 14:33 STOP Sleep Apnea STOP Sleep Apnea - import export clerk: STOP Sleep Apnea - import export clerk Hx Hypertension Yes: CONTROLLED WITH MED 12/11/24 14:33 Hx Sleep Apnea No 12/11/24 14:33 CPAP No 12/11/24 14:33 BIPAP No 12/11/24 14:33 Do you snore loudly (louder No 12/11/24 14:33 than talking or can be heard Do you often feel tired/ No 12/11/24 14:33 fatigued/ sleepy during daytime? Has anyone observed you stop No 12/11/24 14:33 breathing during sleep? STOP Results Negative 12/11/24 14:33 QUESTION #5 FULL TEXT : Do you snore loudly (louder than talking or can be heard through closed doors)? Tobacco Use History Tobacco Use History - import export clerk: Tobacco Use History - import export clerk Tobacco Use Smoking Status Heavy Smoker (>10/day) 12/11/24 14:33 Hx Tobacco Use Yes 12/11/24 14:33 Years Smoking Packs Smoked per Day Smoking Cessation Date was within the last 15 years Hx Smoking Cessation Date 08/22/20 10/30/24 13:17 Hx Smoking Cessation No 12/11/24 14:33 Counseling Hematologic Medial History Hematologic Hx - import export clerk: Hematologic Medical Hx - training and documentation specialist Hx of Blood Transfusion No 12/11/24 14:33 Hx of Transfusion in last 3 No 12/11/24 14:33 Months Date of Last Transfusion (if within last 3 months) Ever experience any problems No 12/11/24 14:33 with transfusion(s)? Specify any problems Hx of Preganancy in last 3 N/A 12/11/24 14:33 Months Nurse Filling Out Transfusion NBUCHER 12/11/24 14:33 & Questions: Date: 12/11/24 12/11/24 14:33 Time: 14:34 12/11/24 14:33 Patient unable to answer at this time (ie. confused, unrespo /Reproduction History /Reproductive History - import export clerk: /Reproductive Hx- import export clerk Hx Now Gestational Age (in weeks): EDC: Hx Hx Para Hx Section SAB No 12/11/24 14:33 Active Medications Active Medications: Current Medications Generic Name Dose Route Start Last Admin Trade Name Freq PRN Reason Stop Dose Admin Lactated Ringer's 1,000 mls @ 15 mls/hr 12/17/24 10:30 12/17/24 11:49 IV 15 mls/hr .Q48H CARRINGTON Administration Lactated Ringer's 1,000 mls @ 15 mls/hr 12/17/24 11:45 IV .Q48H CARRINGTON PFSH Medical History Walker as ambulation aid Uses wheelchair Gastric reflux Arthritis Bipolar disorder Depression Anxiety Migraine headache Dietary restriction History of diverticulitis Chronic cough History of echocardiogram Hypertension Cardiology follow-up encounter COPD (chronic obstructive pulmonary disease) Shortness of breath on exertion Ambulates with cane High cholesterol Smoker History of edema History of CHF (congestive heart failure) Fall Hyperlipidemia Nicotine dependence History of pulmonary embolus (PE) (07/13/20) (HFpEF) heart failure with preserved ejection fraction (07/13/20) Pericardial effusion without cardiac tamponade (07/13/20) Essential (primary) hypertension Anasarca Degeneration of intervertebral disc of lumbosacral region Spondylosis of lumbosacral region without myelopathy or radiculopathy Bilateral sacroiliitis Sacrococcygeal disorders, not elsewhere classified Bipolar disorder Diabetes Home Medications ?Medication ?Instructions ?Recorded ?Last Taken ?Type docusate sodium 100 mg capsule 100 mg PO BID 12/14/17 04/08/24 History (DOK) escitalopram oxalate 10 mg tablet 10 mg PO QHS 12/14/17 04/08/24 History lisinopril 5 mg tablet 5 mg PO LUNCH #30 tabs 08/12/20 04/09/24 Rx buspirone 10 mg tablet 20 mg PO TID Anxiety 08/22/20 09/03/24 History atenolol 50 mg tablet 50 mg PO BID 09/11/20 09/03/24 History gabapentin 800 mg tablet 800 mg PO TID 10/28/21 09/03/24 History multivitamin with folic acid 400 1 tab PO DAILY 05/31/22 04/08/24 History mcg tablet (Daily-Dmitri (with folic acid)) sumatriptan succinate 100 mg tablet 100 mg PO Q2H PRN migraines 05/31/22 04/08/24 History furosemide 40 mg tablet 40 mg PO DAILY 08/08/23 04/08/24 History bisacodyl 5 mg tablet,delayed 5 mg PO DAILY 11/25/23 04/08/24 History release buprenorphine 10 mcg/hour weekly 1 patch transdermal Q7D 11/25/23 04/09/24 History transdermal patch metformin 500 mg tablet 1,000 mg PO BIDCM 11/25/23 04/08/24 History quetiapine 200 mg tablet 200 mg PO QHS 11/25/23 04/08/24 History quetiapine 400 mg tablet (Seroquel) 400 mg PO QHS 11/25/23 04/08/24 History albuterol sulfate 90 mcg/actuation 2 puff inhalation Q6H PRN 03/27/24 04/08/24 Rx aerosol inhaler shortness of breath or wheezing #8.5 grams pantoprazole 20 mg tablet,delayed 20 mg PO Q12H 3 months #180 tabs 04/26/24 09/03/24 Rx release lactulose 10 gram/15 mL oral 15 - 30 ml PO DAILY PRN 05/17/24 Unknown History solution constipation alendronate 70 mg tablet 70 mg PO QWEEK 09/12/24 Unknown History calcium 500 mg (as 1 tab PO BID 09/12/24 Unknown History carbonate)-vitamin D3 5 mcg (200 unit) tablet (Oyster Shell Calcium-Vitamin D3) cetirizine 10 mg tablet 10 mg PO Q12H PRN allergy symptoms 09/12/24 Unknown History ezetimibe 10 mg tablet 10 mg PO QDAY 09/12/24 Unknown History hydroxyzine HCl 10 mg tablet 10 mg PO 4X/DAY 09/12/24 Unknown History tizanidine 4 mg tablet 4 mg PO BID 09/12/24 Unknown History mometasone-formoterol HFA 200 2 puff inhalation BID #13 grams 09/18/24 Unknown Rx mcg-5 mcg/actuation aerosol inhaler (Dulera) tiotropium bromide 2.5 2 puff inhalation QDAY #4 grams 09/20/24 Unknown Rx mcg/actuation mist for inhalation (Spiriva Respimat) Allergy/AdvReac Type Severity Reaction Status Date / Time hydrocodone AdvReac NEEDS Verified 12/11/24 14:28 FOLLOW-UP oxycodone AdvReac NEEDS Verified 12/11/24 14:28 FOLLOW-UP [id number] Reductase AdvReac Constipatio Verified 12/11/24 14:28 Inhibitor n Family History Mother Schizophrenia Sister Depression Sister Depression Surgical History Corneal transplant status Hx of tonsillectomy History of knee replacement History of lumbar surgery History of cataract surgery History of tubal ligation Social History household members: other details: lives with son Smoking Status: Heavy Smoker (>10/day) alcohol intake: never substance use type: does not use caffeine: Yes Type: coffee Number of servings: 3 and tea Number of servings: 1 seatbelt use: sometimes do you feel safe at home: Yes Review of Systems (Anesthesia) ROS Narrative System reviewed and no additional complaints, except as documented.
--- NOTE | 2024-12-17 12:49 | RAD_ITS ---
PROCEDURE: FLUOR GUIDANCE FOR SPINE INJ 12/17/2024 REASON FOR EXAM: CAUDAL BLOCK TECHNIQUE: Procedure Code: RADSPN Modality: DX Procedure: FLUOR GUIDANCE FOR SPINE INJ Intraoperative fluoroscopic services provided for caudal block. 20.5 seconds of fluoroscopy. Radiation dose: 17.42 mGy. 1 image was provided. COMPARISON: June 18, 2024 FINDINGS: Intraoperative imaging provided for caudal block. RAD/Fluor Guidance for Spine Inj IMPRESSION: Intraoperative imaging provided for caudal block. Reading Location: [facility]
[2024-12-17] MEDS: Lidocaine 1% (5 ml sdv) 5 ML Vial (12:57)
[2024-12-17] MEDS: 0.9% Normal Saline (Pres. free 10 ML Vial (12:59)
--- NOTE | 2024-12-17 13:02 | OP.PCM_ITS ---
Operative Report (Standard) Operative Information Date of Procedure: 12/17/24 Pre-Operative Diagnosis: Lumbosacral radiculopathy, lumbosacral degenerative disc disease, lumbosacral spinal stenosis Post-Operative Diagnosis: Lumbosacral radiculopathy, lumbosacral degenerative disc disease, lumbosacral spinal stenosis Surgery/Procedure Performed: Diagnostic/therapeutic caudal epidural steroid injection under fluoroscopic guidance sole leveler machine: No Type of Anesthesia: Local MAC RN Documented Start/Stop Times: Operation Date: 12/17/24 13:20 Case Time Into Pre-Op 12/17/24 11:43 Anesthesia Start 12/17/24 12:50 Into Room 12/17/24 12:50 Procedure End 12/17/24 12:56 Anesthesia End 12/17/24 12:59 Out of Room 12/17/24 12:59 Procedure Start Time: 13:03 Procedure Stop Time: 13:03 Select all DRAINS/GRAFTS/IMPLANTS that apply: None Estimated Blood Loss: 1 Specimen collected: No Description of surgery: ANESTHESIA: MAC. BLOOD LOSS: Minimal. COMPLICATIONS: None. DESCRIPTION OF PROCEDURE: History and physical of today was reviewed. Risks and benefits of the procedure were explained. The patient understood and agreed to proceed. Informed consent was obtained. IV inserted per routine protocol. The patient was taken to the operating room and placed in the prone position with a pillow positioned underneath the abdomen. The lower back and tailbone area was prepped and draped in a sterile fashion using iodine x3. Under fluoroscopy guidance on a lateral view, the caudal space was identified. The skin and subcutaneous tissue was anesthetized with approximately 3 mL of 1% lidocaine using a 25-gauge regular needle. Under direct visualization with fluoroscopy, using a 22-gauge 3-1/2-inch spinal needle, the needle was advanced via the skin through the sacral hiatus. The tip of the needle was passed through the sacrococcygeal ligament and advanced to approximately S4 area. After negative aspiration of blood or CSF, a total of 3 mL of contrast was injected to confirm correct placement of the needle as well as cephalad spread. The spread was followed to approximately L5 area. After confirmation on AP as well as lateral view and repeated negative aspiration, a total of 15 mL of preservative-free 0.125% Marcaine with 80 mg of Depo-Medrol was injected easily. The needle was then removed intact. The patient experienced no sign or symptoms of intrathecal or intravascular injection. The patient experienced no paresthesia. The procedure was completed without any apparent difficulty or any complications. The patient appeared to tolerate it well. ASSESSMENT AND PLAN: This is a 74-year-old female with Lumbosacral radiculopathy, lumbosacral spinal stenosis, lumbosacral degenerative disc disease, status post diagnostic/therapeutic caudal epidural steroid injection under fluoroscopic guidance, patient will continue her current medications, patient will follow-up in approximately 2 weeks for reevaluation. Surgical Findings: none Complications Complications: No Admit VTE Documentation VTE Present on Admission: No VTE Mechan Device Prophylaxis: None VTE Pharm Prophylaxis ordered?: No
--- NOTE | 2024-12-17 13:03 | PCM.POST.ANE ---
Anesthesia: Postop Eval I Current Vital Signs Temperature: 97.4 F Pulse Rate: 62 Blood Pressure: 124/64 Respiratory Rate: 16 Pulse Ox: 94 Oxygen Delivery Method: Room Air Assessment Airway patent: Yes Spontaneous unlabored respirations: Yes Mental status: Awake and Calm nausea: No Vomiting: No Anesthesia Complication: No Fluid Hydration Crystalloid volume administer (ml): 200 Total IV fluid infused: 200 Progress Note Anesthesia document: Postop Eval 1 completed: Yes
--- NOTE | 2024-12-17 14:11 | POSTOPAN2_ITS ---
Anesthesia Postop Eval I Sum Postop Eval Completion status Anesthesia document: Postop Eval 1 completed: Yes Anesthesia Postop Eval I Summary Anesthesia Postop Eval I Summary: Anesthesia Postop Eval I: Assessment Summary Airway patent Yes 12/17/24 13:04 GREENSKEEPER LABORER.[email or web address] Spontaneous unlabored Yes 12/17/24 13:04 GREENSKEEPER LABORER.YVONNE respirations Mental status Awake,Calm 12/17/24 13:04 GREENSKEEPER LABORER.YVONNE nausea No 12/17/24 13:04 GREENSKEEPER LABORER.YVONNE Vomiting No 12/17/24 13:04 GREENSKEEPER LABORER.YVONNE Anesthesia Postop Eval I: Fluid Summary Crystalloid volume administer 200 12/17/24 13:04 GREENSKEEPER LABORER.YVONNE (ml) Colloids volume administered ( ml) Blood Product volume administered (ml) Total IV fluid infused 200 12/17/24 13:04 GREENSKEEPER LABORER.YVONNE Anesthesia Postop Eval I: Summary Notes Anesthesia Complication No 12/17/24 13:04 HU Anesthesia Complication Comment: Post-operative progress note Anesthesia: Postop Eval II Evaluation Mental status: Awake Pain Level: 0 nausea: No Vomiting: No
--- NOTE | 2024-12-17 14:11 | PCM.POSTANE2 ---
Anesthesia Postop Eval I Sum Postop Eval Completion status Anesthesia document: Postop Eval 1 completed: Yes Anesthesia Postop Eval I Summary Anesthesia Postop Eval I Summary: Anesthesia Postop Eval I: Assessment Summary Airway patent Yes 12/17/24 13:04 HEADING UP MACHINE OPERATOR.[email or web address] Spontaneous unlabored Yes 12/17/24 13:04 HEADING UP MACHINE OPERATOR.YVONNE respirations Mental status Awake,Calm 12/17/24 13:04 HEADING UP MACHINE OPERATOR.YVONNE nausea No 12/17/24 13:04 HEADING UP MACHINE OPERATOR.YVONNE Vomiting No 12/17/24 13:04 HEADING UP MACHINE OPERATOR.YVONNE Anesthesia Postop Eval I: Fluid Summary Crystalloid volume administer 200 12/17/24 13:04 HEADING UP MACHINE OPERATOR.YVONNE (ml) Colloids volume administered ( ml) Blood Product volume administered (ml) Total IV fluid infused 200 12/17/24 13:04 HEADING UP MACHINE OPERATOR.YVONNE Anesthesia Postop Eval I: Summary Notes Anesthesia Complication No 12/17/24 13:04 HU Anesthesia Complication Comment: Post-operative progress note Anesthesia: Postop Eval II Evaluation Mental status: Awake Pain Level: 0 nausea: No Vomiting: No
== END 2024-12-17 13:56 | disposition home or self-care (01) ==
LOC: SDC 09:55 → AC 12:35
PROVIDERS: PCP Nurse Practitioner Family; Referring Provider Anesthesiology Pain Medicine; Visit Provider Anesthesiology Pain Medicine
PROC: 3E0S3BZ Introduction of Anesthetic Agent into Epidural Space, Percutaneous Approach (ICD-10-PCS; CPT 62282; principal; 2024-12-17 13:15)
DX: M51.17 Intervertebral disc disorders with radiculopathy, lumbosacral region (principal); M48.07 Spinal stenosis, lumbosacral region; Z79.899 Other long term (current) drug therapy
CPT/HCPCS: 62323; 01992; 64483; 77003; 82962

== ENCOUNTER → 2025-01-07 | Outpatient (CLI) | payer MEDICAID, SELFPAY ==
--- NOTE | 2025-01-07 13:57 | CT_ITS ---
PROCEDURE: LOW DOSE CT LUNG SCREENING 01/07/2025 REASON FOR EXAM: SMOKER 1 pack per day smoker times 50 years TECHNIQUE: Procedure Code: CTLUNGSCREEN Modality: CT Procedure: LOW DOSE CT LUNG SCREENING Coronal and Sagittal reconstruction series were provided. One or more dose reduction techniques were used (e.g., Automated exposure control, adjustment of the mA and/or kV according to patient size, use of iterative reconstruction technique). REFERENCE LINK: [employer] Lung-RADS RADIATION DOSE SUMMARY: CTDlvol: 4.02 mGy DLP: 136.92 mGycm COMPARISON: 2023, 2022 FINDINGS: PULMONARY NODULES: (Only nodules >3mm are reported) Lung windows show chronic interstitial changes in both lung rodriguez with nonspecific pleural thickening in the apices, and along the left fissure. There is evidence of chronic bronchitis and subsegmental atelectasis in the right middle lobe. There is no organized infiltrate, effusion, or suspicious noncalcified mass or nodule. No significant interval change since the previous study. Limited soft tissue windows show a normal-appearing thyroid gland. No suspicious adenopathy. Thoracic aorta tapers normally. Calcified coronary vessels are noted. Limited cuts through the upper abdomen do not show a suspicious abnormality. Bony structures show degenerative change CT/Low Dose CT Lung Screening IMPRESSION: Chronic changes, no superimposed process or significant change. No suspicious noncalcified mass or nodule Coronary artery calcification (CAC) is is present Lung-RADS Category: 2 BENIGN (BASED ON IMAGING FEATURES OR INDOLENT BEHAVIOR). RECOMMEND 12-MONTH SCREENING LDCT. Other Significant Findings: Reading Location: [place] [id number]
== END | disposition home or self-care (01) ==
LOC: CT 13:41
PROVIDERS: PCP Nurse Practitioner Family; Referring Provider Nurse Practitioner Acute Care; Visit Provider Nurse Practitioner Acute Care
DX: F17.210 Nicotine dependence, cigarettes, uncomplicated (principal)
CPT/HCPCS: 71271

== ENCOUNTER 2025-03-25 20:02 | Emergency (ER) | payer MEDICAID, SELFPAY ==
[2025-03-25 20:06] VITALS: BP 140/80; PULSE 107; RESP 16; TEMP 36.1; O2SAT 95
--- NOTE | 2025-03-25 21:49 | EKG12_ITS ---
Test Reason : DYSRHYTHMIA Blood Pressure : */* mmHG Vent. Rate : 94 BPM Atrial Rate : 94 BPM P-R Int : 166 ms QRS Dur : 88 ms QT Int : 376 ms P-R-T Axes : * 7 59 degrees QTcB Int : 470 ms Normal sinus rhythm Nonspecific ST abnormality Abnormal ECG Confirmed by Vishal Thomas ([id number]), order editor NANETTE SAUNDERS ([id number]) on 03/29/2025 8:21:54 AM Referred By: IRVING Confirmed By: Vishal Thomas
--- OUTSIDE RECORDS SUMMARY | 2025-03-25 21:52 | XMS RPT_ITS | CCD ---
Author Organization [facility] CliniSyny Care Team Providers Care Chief Medical Officer Name Role Phone Dr. Bernie Jovel Primary Care Provider Dr. Bernie Jovel Referring Provider [phone] Dr. Jimmy Vaca Attending Provider Dr. Jimmy Vaca Referring Provider Dr. Jimmy Vaca Other Provider Dr. Markus Nina Attending Provider Julio SHIPPING/RECEIVING CLERK, SHIPPING/RECEIVING CLERK-C Bri Bustos Attending Provider Deonte SHIPPING/RECEIVING CLERK, SHIPPING/RECEIVING CLERK-C Coral Attending Provider [phone] Dr. Bernie Jovel Primary Care Provider Dr. Bernie Jovel Referring Provider [phone] Dr. Jimmy Vaca Attending Provider [phone] Julio SHIPPING/RECEIVING CLERK, SHIPPING/RECEIVING CLERK-C Bri Bustos Attending Provider Dr. Jimmy Vaca Referring Provider Dr. Bernie Jovel Referring Provider [phone] BERNIE JOVEL DO Primary Care Physician Dr. Bernie Jovel Primary Care Provider Dr. Bernie Jovel Referring Provider [phone] Deonte GALVEZ NP-C Coral Attending Provider Dr. Bernie Jovel Primary Care Provider Dr. Bernie Jovel Referring Provider [phone] Deonte SHIPPING/RECEIVING CLERK, SHIPPING/RECEIVING CLERK-C Coral Attending Provider Julio SHIPPING/RECEIVING CLERK, SHIPPING/RECEIVING CLERK-C Bri H Attending Provider Dr. Bernie Jovel Primary Care Provider Dr. Joshua Aviles Emergency Provider Friend, Dr. Moreno Attending Provider [phone] Friend, Dr. Moreno Referring Provider [phone] Friend, Dr. Moreno Other Provider BERNIE JOVEL DO Primary Care Physician BERNIE JOVEL DO Attending Unavailable BERNIE JOVEL DO Primary Care Unavailable PHYLLIS AYALA MD Attending Unavailable BERNIE JOVEL DO Primary Care Unavailable Dr. Bernie Jovel Primary Care Provider Dr. Bernie Jovel Referring Provider [phone] Dr. Jimmy Vaca Attending Provider [phone] Bernie Jovel DO Primary Care Provider [phone] Dr. Brandon Cuellar MD Attending Provider Dr. Brandon Cuellar MD Referring Provider Deonte SHIPPING/RECEIVING CLERK-CCoral Attending Provider Deonte SHIPPING/RECEIVING CLERK-CCoral Referring Provider Deonte GALVEZ-C, Coral Other Provider [phone] Dr. Med Wilder DO Attending Provider [phone] Dr. Bernie Jovel DO Primary Care Provider [phone] Deonte SHIPPING/RECEIVING CLERK-CCoral Referring Provider Deonte SHIPPING/RECEIVING CLERK-CCoral Attending Provider Dr. Brandon Cuellar MD Attending Provider Dr. Brandon Cuellar MD Referring Provider Dr. Bernie Jovel DO Referring Provider Desiree SHIPPING/RECEIVING CLERK-CXena Attending Provider Dr. Bernie Jovel DO Primary Care Provider [phone] Deonte SHIPPING/RECEIVING CLERK-CCoral Referring Provider Julio GALVEZ-C, Bri Bustos Attending Provider KAN SHIPPING/RECEIVING CLERK-C, JOSE Primary Care Provider KAN SHIPPING/RECEIVING CLERK-C, JOSE Primary Care Provider Julio SHIPPING/RECEIVING CLERK-C, Bri Bustos Referring Provider Dr. Bernie Jovel DO Other Provider Deonte SHIPPING/RECEIVING CLERK-C, Coral Other Provider Desiree SHIPPING/RECEIVING CLERK-C, Xena Montano Other Provider [phone] Dr. Bernie Jovel DO Primary Care Provider Desiree SHIPPING/RECEIVING CLERK-C, Xena Montano Referring Provider Jaymie GAFFNEY, Dr. Lyons Attending Provider KAN TREE FARMER-GUARD CHIEF, JOSE Primary Care Physician Dr. Bernie Jovel DO Primary Care Provider [phone] Polo GAFFNEY, Dr. Taylor Attending Provider Dr. Brandon Cuellar MD Referring Provider Dr. Bernie Jovel DO Referring Provider KAN SHIPPING/RECEIVING CLERK-C, JOSE Primary Care Provider Desiree GALVEZ-C, Xena Montano Attending Provider Man GAFFNEY, Dr. Nguyễn Attending Provider BERNIE JOVEL DO Primary Care Unavailable BECKA KHAN, BERNIE Attending Unavailable BECKA KHAN, BERNIE Attending Unavailable BECKA KHAN, BERNIE Primary Care Unavailable KAN TREE FARMER-GUARD CHIEF, JOSE Primary Care Angelyvai dolores RAMIREZ TREE FARMER - GUARD CHIEF, DAMON Thurman Attending U navailable KAN TREE FARMER-GUARD CHIEF, JOSE Attending Unavai lable KAN TREE FARMER-GUARD CHIEF, JOSE Primary Care Unavai lable KAN TREE FARMER-GUARD CHIEF, JOSE Primary Care Unavai lable CLARENCE TREE FARMER-GUARD CHIEF, CLARISSA Oshea Attending Unava ilable KAN, JOSE Primary Care Unavailable PoloBrandon Referring Unavailable Brandon Cuellar Attending Unavailable Xena Ramírez Attending Unavailable KAN, JOSE Primary Care Unavailable Xena Ramírez Referring Unavailable KAN, JOSE Primary Care Unavailable Roof SHIPPING/RECEIVING CLERK, Bri Bustos Referring Unavailable Roof SHIPPING/RECEIVING CLERK, Bri Bustos Attending Unavailable Becka, Bernie Consulting Unavailable Deonte, Coral Consulting Unavailable Xena Ramírez Consulting Unavailable KAN, JOSE Primary Care Unavailable Eloy Coon Attending Unavailable Clemons, Coral Referring Unavailable Med Wilder Attending Unavailable Becka, Bernie Primary Care Unavailable Becka, Bernie Primary Care Unavailable Clemons, Coral Consulting Unavailable Clemons, Coral Referring Unavailable BrownMed Attending Unavailable KAN, JOSE Primary Care Unavailable Roof SHIPPING/RECEIVING CLERK, Bri H Attending Unavailable Becka, Bernie Referring Unavailable Becka, Bernie Primary Care Unavailable Becka, Bernie Referring Unavailable Xena Ramírez Attending Unavailable Becka, Bernie Primary Care Unavailable Clemons, Coral Referring Unavailable Clemons, Coral Attending Unavailable Deonte, Coral Attending Unavailable Brandon Cuellar Attending Unavailable Becka, Bernie Primary Care Unavailable Polo, Brandon Referring Unavailable Becka, Bernie Primary Care Unavailable Polo, Brandon Attending Unavailable Polo, Brandon Referring Unavailable KAN, JOSE Referring Unavailable KAN, JOSE Attending Unavailable KAN, JOSE Primary Care Unavailable Clemons, Coral Attending Unavailable Clemons, Coral Referring Unavailable KAN, JOSE Primary Care Unavailable KAN, JOSE Primary Care Unavailable Brandon Cuellar Referring Unavailable Brandon Cuellar Attending Unavailable Brandon Cuellar Referring Unavailable Becka, Bernie Primary Care Unavailable Brandon Cuellar Attending Unavailable KAN, JOSE Primary Care Unavailable Xena Ramírez Referring Unavailable Xena Ramírez Attending Unavailable Allergies Allergy Classification Reported Allergen(s) Allergy Type Date of Onset Reaction(s) Facility (20 sources) HYDROcodone Drug Allergy 07-21-19 Other, NEEDS FOLLOW-UP [facility] (5 sources) oxyCODONE Drug Allergy 07-21-19 Other [facility] Work Phone: (20 sources) [id number]-[id number] Reductase Inhibitor; Translations: [Yhrzmbm-Xee-Cu a Reductase Inhibitor] Propensity to adverse reactions 07-21-19 Drug-induced constipation with proper administration [facility] (20 sources) oxyCODONE Drug Allergy 01-05-20 NEEDS FOLLOW-UP [facility] Comment on above: pt states that the d octors say it makes her suicidal (7 sources) atorvastatin; Translations: [atorvastatin] Drug Allergy Constipation [facility] (7 sources) buPROPion; Translations: [bupropion] Drug Allergy Palpitations [facility] (1 source) HYDROcodone Drug Allergy 12-12-19 [facility] Rep[facility] (1 source) oxyCODONE Drug Allergy 12-12-19 [facility] Rep[facility] Medications Current Medications Medication Drug Class(es) Dates Sig (Normalized) Sig (Original) albuterol MDI (90 mcg/inh) CFC free inhalation aerosol (7 sources) Start: 10-26-2021 take 2 puff(s) by inhalation every six hours as needed for wheezing albuterol MDI (90 mcg/inh) CFC free inhalation aerosol 2 puff(s), Inhalation, q6hr, PRN as needed for wheezing, # 1 EA, 1 Refill(s), Pharmacy: [facility] [id number], COPD mixed type, 159, cm, 10/13/21 10:32:00 EDT, Height Start Date: 10/26/21 Status: Ordered Medication Dispense Status: Completed Quantity: 1.0 Unit: EA Total Allowed Fills: 2 Fills Dispensed: 0 Indications: Chronic obstructive pulmonary disease, unspecified; Start: 10-26-2021 take 2 puff(s) by in halation every six hours as needed for wheezing albuterol MDI (90 mcg/inh) CFC free inhalation aerosol 2 puff(s), Inhalation, q6hr, PRN as needed for wheezing, # 1 EA, 1 Refill(s), Pharmacy: [facility] [id number], COPD mixed type, 159, cm, 10/13/21 10:32:00 EDT, Height Start Date: 10/26/21 Status: Ordered Quantity: 1.0 Unit: EA Repeat number: 2 Indications: Chronic obstructive pulmonary disease, unspecified; Start: 10-26-2021 take 2 puff(s) by in halation every six hours as needed for wheezing albuterol MDI (90 mcg/inh) CFC free inhalation aerosol 2 puff(s), Inhalation, q6hr, PRN as needed for wheezing, # 1 EA, 1 Refill(s), Pharmacy: [place] [id number], COPD mixed type, 159, cm, 10/13/21 10:32:00 EDT, Height Start Date: 10/26/21 Status: Ordered alendronic acid 70 mg oral tablet (16 sources) Bisphosphonate Start: 11-26-2024 take 6-8 [oz_av] by mouth once daily alendronate 70 mg oral tablet Dose : 70 mg = 1 tab(s), Oral, qWeek, with 6-8 oz plain water, at least 30 minutes before first food, beverage, or medication of the day, # 4 tab(s), 11 Refill(s), Pharmacy: [place] [id number], Osteoporosis, 157, cm, 11/26/24 13:23:00 EDT, Height, kg, 11/26/24 13:23:00 EDT, Dosing Weight Start Date: 11/26/24 Status: Ordered Medication Dispense Status: Completed Quantity: 4.0 Unit: tab(s) Total Allowed Fills: 12 Fills Dispensed: 0 Indications: Age-related osteoporosis without current pathological fracture; Start: 09-12-2024 take 1 tablet by maria teresa th every week Alendronate 70 mg tablet Active 70 mg PO EVERY WEEK September 12, 2024 12:00am Start: 05-22-2024 take 6-8 [oz_av] by mouth once daily alendronate 70 mg oral tablet Dose : 70 mg = 1 tab(s), Oral, qWeek, with 6-8 oz plain water, at least 30 minutes before first food, beverage, or medication of the day, # 4 tab(s), 11 Refill(s), Pharmacy: [place] [id number], Osteoporosis, 159, cm, 01/17/24 10:08:00 EDT, Height, kg, 01/17/24 10:08:00 EDT, Dosing Weight Start Date: 05/22/24 Status: Ordered Quantity: 4.0 Unit: tab(s) Repeat number: 12 Indications: Age-related osteoporosis without current pathological fracture; Start: 11-25-2023 End: 05-17-2024 take 1 tablet by mouth every week Alendronate 70 mg tablet Discontinued 70 mg PO EVERY WEEK November 25, 2023 12:00am May 17, 2024 3:25pm Start: 12-27-2022 take 6-8 [oz_av] by mouth once daily alendronate 70 mg oral tablet Dose : 70 mg = 1 tab(s), Oral, qWeek, with 6-8 oz plain water, at least 30 minutes before first food, beverage, or medication of the day, # 4 tab(s), 5 Refill(s), Pharmacy: [place] [id number], Osteoporosis, 159, cm, 11/23/22 10:24:00 EDT, Height, kg, 11/23/22 10:24:00 EDT, Dosing Weight Start Date: 12/27/22 Status: Ordered amLODIPine 2.5 mg oral tablet (20 sources) Dihydropyridine Calcium Channel Chavez Start: 11-26-2024 amLODIPine 2.5 mg oral tablet Dose : 2.5 mg = 1 tab(s), Oral, qDay, # 90 tab(s), 2 Refill(s), Pharmacy: [place] [id number], 157, cm, 11/26/24 13:23:00 EDT, Height, kg, 11/26/24 13:23:00 EDT, Dosing Weight Start Date: 11/26/24 Status: Ordered Medication Dispense Status: Completed Quantity: 90.0 Unit: tab(s) Total Allowed Fills: 3 Fills Dispensed: 0 Start: 01-17-2024 End: 09-12-2024 Amlodipine 2.5 mg tablet Discontinued 2.5 mg PO Every 3 Days September 12, 2024 12:00am September 12, 2024 1:23pm Start: 11-25-2023 End: 09-12-2024 Amlodipine 5 mg tablet Disco ntinued 2.5 mg PO .q 3 days November 25, 2023 8:54am September 12, 2024 1:06pm Start: 11-25-2023 take 2.5 mg by mouth once trip y Amlodipine 5 mg tablet Active 2.5 mg PO DAILY November 25, 2023 8:54am Start: 12-23-2020 End: 11-25-2023 take 1 tablet by mouth once daily Amlodipine 5 mg tablet Discontinued 5 mg PO DAILY December 23, 2020 12:00am November 25, 2023 8:54am Start: 07-02-2014 End: 07-15-2020 take 1 tablet by mouth once daily Amlodipine 5 MG tablet Discontinued 5 mg PO DAILY July 02, 2014 12:00am July 15, 2020 3:23pm amoxicillin 875 mg / clavulanate 125 mg oral tablet (10 sources) Penicillin-class Antibacterial Start: 11-26-2024 End: 12-03-2024 take 1 tablet by mouth every twelve hours amoxicillin-clavulanate 875 mg-125 mg oral tablet 1 tab(s), Oral, q12h, X 7 day(s), # 14 tab(s), 0 Refill(s), 12/03/24 2:06:00 PM EDT, Pharmacy: [place] [id number], Cellulitis of left lower leg Dysuria, 157, cm, 11/26/24 13:23:00 EDT, Height, 113, kg, 11/26/24 13:23:00 EDT, Dosing Weight Start Date: 11/26/24 Stop Date: 12/03/24 Status: Ordered Medication Dispense Status: Completed Quantity: 14.0 Unit: tab(s) Total Allowed Fills: 1 Fills Dispensed: 0 Indications: Cellulitis of left lower limb; Dysuria; Start: 06-19-2023 End: 08-08-2023 Amoxicillin-Pot Clavulanate 875-125 mg tablet Discontinued 1 {tbl} PO TWICE A DAY June 19, 2023 12:00am August 08, 2023 11:06am Start: 06-19-2023 End: 08-08-2023 take 1 tablet by mouth twice daily Amoxicillin-Pot Clavulanate Discontinued 1 TABLET PO TWICE A DAY June 19, 2023 12:00am August 08, 2023 11:06am Anoro Ellipta 62.5 mcg-25 mcg/inh inhalation powder (2 sources) Start: 07-06-2021 take 1 dose by inhalation once daily Anoro Ellipta 62.5 mcg-25 mcg/inh inhalation powder Dose = 1 puff(s), Inhalation, qDay, # 30 EA, 0 Refill(s) Start Date: 07/06/21 Status: Ordered atenolol 50 mg oral tablet (20 sources) beta-Adrenergic Chavez Start: 09-11-2020 End: 09-10-2025 atenolol 50 mg oral tablet Dose : 50 mg = 1 tab(s), Oral, BID, X 90 day(s), # 180 tab(s), 2 Refill(s), 08/23/25 2:07:00 PM EDT, Pharmacy: [place] [id number], Essential hypertension, 157, cm, 11/26/24 13:23:00 EDT, Height, kg, 11/26/24 13:23:00 EDT, Dosing Weight Start Date: 11/26/24 Stop Date: 08/23/25 Status: Ordered Medication Dispense Status: Completed Quantity: 180.0 Unit: tab(s) Total Allowed Fills: 3 Fills Dispensed: 0 Indications: Essential (primary) hypertension; Start: 08-12-2020 End: 09-11-2020 take 1 tablet by mouth at bedtime Atenolol 25 mg tablet Discontinued 25 mg PO .at bedtime 30 September 09, 2020 1:16pm September 11, 2020 9:38am Start: 07-15-2020 End: 08-12-2020 Atenolol 50 MG tablet Discon tinued 25 mg PO AT BEDTIME 30 0 July 15, 2020 3:25pm August 12, 2020 10:03am Start: 07-15-2020 End: 08-12-2020 take 25 mg by mouth at bedtime Atenolol Discontinued 2 5 MG PO AT BEDTIME July 15, 2020 3:25pm August 12, 2020 10:03am Start: 12-14-2017 End: 07-15-2020 take 1 tablet by mouth at bedtime Atenolol 50 MG tablet Discontinued 50 mg PO AT BEDTIME December 14, 2017 12:00am July 15, 2020 3:25pm bisacodyl 5 mg delayed release oral tablet (20 sources) Stimulant Laxative Start: 09-26-2024 take 2 tablets by mouth once daily as needed for constipation, then take 1 tablet by mouth once daily as needed for constipation bisacodyl 5 mg oral delayed release tablet See Instructions, PRN as needed for constipation, take 2 tabs daily x 1 week then 1 tab daily, # 40 tab(s), 3 Refill(s), Pharmacy: [place] [id number], 159, cm, 09/26/24 13:16:00 EDT, Height, kg, 09/26/24 13:16:00 EDT, Dosing Weight Start Date: 09/26/24 Status: Ordered Medication Dispense Status: Completed Quantity: 40.0 Unit: tab(s) Total Allowed Fills: 4 Fills Dispensed: 0 Start: 11-15-2023 take 1 tablet by maria teresa th once daily Bisacodyl 5 mg tablet,delayed release (DR/EC) Active 5 mg PO DAILY November 25, 2023 8:26am Start: 12-16-2022 bisacodyl 5 mg oral delayed release tablet Dose : 5 mg = 1 tab(s), Oral, qDay, PRN as needed for constipation, # 90 tab(s), 3 Refill(s), Pharmacy: [place] [id number], 159, cm, 11/23/22 10:24:00 EDT, Height, kg, 11/23/22 10:24:00 EDT, Dosing Weight Start Date: 12/16/22 Status: Ordered Start: 12-29-2021 bisacodyl 5 mg oral delayed release tablet Dose : 5 mg = 1 tab(s), Oral, qDay, PRN as needed for constipation, # 90 tab(s), 3 Refill(s), Pharmacy: [place] [id number], 159, cm, 10/13/21 10:32:00 EDT, Height, kg, 10/13/21 10:32:00 EDT, Dosing Weight Start Date: 12/29/21 Status: Ordered Start: 08-22-2020 End: 11-25-2023 take 2 tablets by mouth once daily Bisacodyl 5 mg tablet,delayed release (DR/EC) Discontinued 10 mg PO DAILY August 22, 2020 3:07pm November 25, 2023 8:32am Start: 08-22-2020 take 10 mg by mouth once daily Bisacodyl Active 10 MG PO DAILY August 22, 2020 3:07pm Start: 10-21-2014 End: 08-22-2020 take 1 tablet by mouth once daily Bisacodyl 5 MG tablet Discontinued 5 mg PO DAILY October 21, 2014 12:00am August 22, 2020 3:09pm Blood Glucose Test Machine (7 sources) Start: 06-14-2022 Blood Glucose Test Machine See Instructions, To daily to test blood sugar. Diagnosis: E11.9, # 1 EA, 0 Refill(s), Pharmacy: [place] [id number], Diabetes mellitus, 159, cm, 05/27/22 10:48:00 EST, Height, 121.8, kg, 05/27/22 10:40:00 EST, Dosing Weight Start Date: 06/14/22 Status: Ordered Medication Dispense Status: Completed Quantity: 1.0 Unit: EA Total Allowed Fills: 1 Fills Dispensed: 0 Indications: Type 2 diabetes mellitus without complications; Start: 06-14-2022 Blood Glucose Test Machine See Instructions, To daily to test blood sugar. Diagnosis: E11.9, # 1 EA, 0 Refill(s), Pharmacy: [place] [id number], Diabetes mellitus, 159, cm, 05/27/22 10:48:00 EST, Height, 121.8, kg, 05/27/22 10:40:00 EST, Dosing Weight Start Date: 06/14/22 Status: Ordered Quantity: 1.0 Unit: EA Repeat number: 1 Indications: Type 2 diabetes mellitus without complications; Start: 06-14-2022 Blood Glucose Test Machine See Instructions, To daily to test blood sugar. Diagnosis: E11.9, # 1 EA, 0 Refill(s), Pharmacy: [place] [id number], Diabetes mellitus, 159, cm, 05/27/22 10:48:00 EST, Height, 121.8, kg, 05/27/22 10:40:00 EST, Dosing Weight Start Date: 06/14/22 Status: Ordered Start: 05-27-2022 Blood Glucose Test Machine See Instructions, To daily to test blood sugar, # 1 EA, 0 Refill(s), Diabetes mellitus, 121.8 Start Date: 05/27/22 Status: Ordered 168 hr buprenorphine 0.01 mg/hr transdermal system (20 sources) Partial Opioid Agonist Start: 11-25-2023 apply 10 ug transdermal route every week Buprenorphine 10 mcg/hour patch weekly Active 1 NMA TD Q7D November 25, 2023 12:00am Start: 07-06-2021 End: 11-25-2023 apply 1 dose transdermal route every week Butrans 7.5 mcg/hr transdermal film, extended release Dose = 1 patch(es), Transdermal, qWeek, # 4 patch(es), 0 Refill(s), 109.2 Start Date: 07/06/21 Status: Ordered Medication Dispense Status: Completed Quantity: 4.0 Unit: patch(es) Total Allowed Fills: 1 Fills Dispensed: 0 busPIRone hydrochloride 10 mg oral tablet (20 sources) Start: 08-22-2020 take 2 tablets by mouth three times daily Buspirone 10 mg tablet Active 20 mg PO THREE TIMES A DAY August 22, 2020 3:08pm Anxiety Start: 08-22-2020 take 10 mg by mouth three times daily Buspirone Active 10 MG PO THREE TIMES A DAY August 22, 2020 3:08pm Start: 05-14-2020 End: 08-22-2020 take 1 tablet by mouth twice daily Buspirone 10 MG tablet Discontinued 10 mg PO TWICE A DAY May 14, 2020 1:00am August 22, 2020 3:09pm Start: 11-12-2019 BUSPIRONE HYDR OCHLORIDE 10 MG TABS BUSPIRONE HYDROCHLORIDE 10 MG TABS, 0 Refill(s), 109.4 Start Date: 11/12/19 Status: Ordered Medication Dispense Status: Completed Total Allowed Fills: 1 Fills Dispensed: 0 Start: 11-12-2019 BUSPIRONE HYDR OCHLORIDE 10 MG TABS BUSPIRONE HYDROCHLORIDE 10 MG TABS, 0 Refill(s), 109.4 Start Date: 11/12/19 Status: Ordered Repeat number: 1 Start: 11-12-2019 BUSPIRONE HYDR OCHLORIDE 10 MG TABS BUSPIRONE HYDROCHLORIDE 10 MG TABS, 0 Refill(s), 109.4 Start Date: 11/12/19 Status: Ordered calcium carbonate 1250 mg / cholecalciferol 200 unt oral tablet (16 sources) Vitamin D Start: 05-22-2024 take 1 tablet by mouth twice daily calcium (as carbonate)-vitamin D 500 mg-200 intl units oral tablet Dose = 1 tab(s), Oral, BID, # 60 tab(s), 11 Refill(s), Pharmacy: [place] [id number], 157, cm, 11/26/24 13:23:00 EDT, Height, kg, 11/26/24 13:23:00 EDT, Dosing Weight Start Date: 11/26/24 Status: Ordered Medication Dispense Status: Completed Quantity: 60.0 Unit: tab(s) Total Allowed Fills: 12 Fills Dispensed: 0 Start: 11-25-2023 End: 05-17-2024 Calcium Carbonate-Vitamin D3 (Oyster Shell Calcium-Vit D3) 500 mg-5 mcg (200 unit) tablet Discontinued 1 {tbl} PO TWICE A DAY November 25, 2023 12:00am May 17, 2024 3:26pm Start: 12-27-2022 take 1 tablet by maria teresa th twice daily calcium (as carbonate)-vitamin D 500 mg-200 intl units oral tablet Dose = 1 tab(s), Oral, BID, # 60 tab(s), 5 Refill(s), Pharmacy: [place] [id number], 159, cm, 11/23/22 10:24:00 EDT, Height, kg, 11/23/22 10:24:00 EDT, Dosing Weight Start Date: 12/27/22 Status: Ordered cetirizine hydrochloride 10 mg oral tablet (20 sources) Histamine-1 Receptor Antagonist Start: 10-17-2023 End: 03-06-2025 cetirizine 10 mg oral tablet Dose : 10 mg = 1 tab(s), Oral, Every other day, # 50 tab(s), 0 Refill(s), Pharmacy: [place] [id number], 157, cm, 11/26/24 13:23:00 EDT, Height, kg, 11/26/24 13:23:00 EDT, Dosing Weight Start Date: 11/26/24 Stop Date: 03/06/25 Status: Ordered Medication Dispense Status: Completed Quantity: 50.0 Unit: tab(s) Total Allowed Fills: 1 Fills Dispensed: 0 Start: 11-16-2022 cetirizine 10 mg oral tablet Dose : 10 mg = 1 tab(s), Oral, Every other day, # 45 tab(s), 3 Refill(s), Pharmacy: [place] [id number], 159, cm, 05/27/22 10:48:00 EST, Height, kg, 10/04/22 11:09:00 EDT, Dosing Weight Start Date: 11/16/22 Status: Ordered Start: 12-03-2021 cetirizine 10 mg oral tablet Dose : 10 mg = 1 tab(s), Oral, Every other day, # 45 tab(s), 3 Refill(s), Pharmacy: [place] [id number], 159, cm, 10/13/21 10:32:00 EDT, Height, kg, 10/13/21 10:32:00 EDT, Dosing Weight Start Date: 12/03/21 Status: Ordered Start: 03-16-2019 End: 05-17-2024 take 1 capsule by mouth every other day Cetirizine 10 MG capsule Discontinued 10 mg PO EVERY OTHER DAY March 16, 2019 1:00am May 17, 2024 3:26pm Dialyvite Rx oral tablet (7 sources) Start: 11-26-2024 End: 12-31-2025 take 1 tablet by mouth once daily Dialyvite Rx oral tablet Dose = 1 tab(s), Oral, qDay, # 100 tab(s), 3 Refill(s), Pharmacy: [place] [id number], 157, cm, 11/26/24 13:23:00 EDT, Height, kg, 11/26/24 13:23:00 EDT, Dosing Weight Start Date: 11/26/24 Stop Date: 12/31/25 Status: Ordered Medication Dispense Status: Completed Quantity: 100.0 Unit: tab(s) Total Allowed Fills: 4 Fills Dispensed: 0 Start: 04-09-2024 End: 05-14-2025 take 1 tablet by mouth once daily Dialyvite Rx oral tablet Dose = 1 tab(s), Oral, qDay, # 100 tab(s), 3 Refill(s), Pharmacy: [place] [id number], 159, cm, 01/17/24 10:08:00 EDT, Height, kg, 01/17/24 10:08:00 EDT, Dosing Weight Start Date: 04/09/24 Stop Date: 05/14/25 Status: Ordered Quantity: 100.0 Unit: tab(s) Repeat number: 4 Start: 04-27-2022 take 1 tablet by maria teresa th once daily Dialyvite Rx oral tablet Dose = 1 tab(s), Oral, qDay, # 90 tab(s), 3 Refill(s), Pharmacy: [place] [id number], 159, cm, 10/13/21 10:32:00 EDT, Height, kg, 10/13/21 10:32:00 EDT, Dosing Weight Start Date: 04/27/22 Status: Ordered DME MISCellaneous (20 sources) Start: 01-17-2024 DME MISCellane ous See Instructions, Dispense 1 automatic sphygmomanometer with large arm cuff. Diagnosis: I10, # 1 EA, 0 Refill(s), Essential hypertension, 115 Start Date: 01/17/24 Status: Ordered Medication Dispense Status: Completed Quantity: 1.0 Unit: EA Total Allowed Fills: 1 Fills Dispensed: 0 Indications: Essential (primary) hypertension; Start: 01-17-2024 DME MISCellane ous See Instructions, Dispense 1 automatic sphygmomanometer with large arm cuff. Diagnosis: I10, # 1 EA, 0 Refill(s), Essential hypertension, 115 Start Date: 01/17/24 Status: Ordered Quantity: 1.0 Unit: EA Repeat number: 1 Indications: Essential (primary) hypertension; Start: 11-23-2022 DME MISCellane ous See Instructions, Dispense knee-high compression stockings, #2 pair, 20 to 30 mmHg compression., # 2 EA, 2 Refill(s), Bilateral edema of lower extremity, 123.7 Start Date: 11/23/22 Status: Ordered Medication Dispense Status: Completed Quantity: 2.0 Unit: EA Total Allowed Fills: 3 Fills Dispensed: 0 Indications: Localized edema; Start: 11-23-2022 DME MISCellane ous See Instructions, Dispense knee-high compression stockings, #2 pair, 20 to 30 mmHg compression., # 2 EA, 2 Refill(s), Bilateral edema of lower extremity, 123.7 Start Date: 11/23/22 Status: Ordered Quantity: 2.0 Unit: EA Repeat number: 3 Indications: Localized edema; Start: 11-23-2022 DME MISCellane ous See Instructions, Dispense knee-high compression stockings, #2 pair, 20 to 30 mmHg compression., # 2 EA, 2 Refill(s), Bilateral edema of lower extremity, 123.7 Start Date: 11/23/22 Status: Ordered Start: 04-13-2022 DME MISCellane ous See Instructions, Dispense bed pads, #4, use 1 pad daily to protect bed due to urinary incontinence, # 4 EA, 1 Refill(s), Urinary incontinence, mixed, 115.9 Start Date: 04/13/22 Status: Ordered Medication Dispense Status: Completed Quantity: 4.0 Unit: EA Total Allowed Fills: 2 Fills Dispensed: 0 Indications: Mixed incontinence; Start: 04-13-2022 DME MISCellane ous See Instructions, Dispense bed pads, #4, use 1 pad daily to protect bed due to urinary incontinence, # 4 EA, 1 Refill(s), Urinary incontinence, mixed, 115.9 Start Date: 04/13/22 Status: Ordered Quantity: 4.0 Unit: EA Repeat number: 2 Indications: Mixed incontinence; Start: 04-13-2022 DME MISCellane ous See Instructions, Dispense bed pads, #4, use 1 pad daily to protect bed due to urinary incontinence, # 4 EA, 1 Refill(s), Urinary incontinence, mixed, 115.9 Start Date: 04/13/22 Status: Ordered Start: 04-13-2022 DME MISCellane ous See Instructions, Dispense extra-large adult diapers, #200, use 1 diaper up to 7 times daily as directed for urinary incontinence, # 200 EA, 11 Refill(s), Urinary incontinence, mixed, 115.9 Start Date: 04/13/22 Status: Ordered Medication Dispense Status: Completed Quantity: 200.0 Unit: EA Total Allowed Fills: 12 Fills Dispensed: 0 Indications: Mixed incontinence; Start: 04-13-2022 DME MISCellane ous See Instructions, Dispense extra-large adult diapers, #200, use 1 diaper up to 7 times daily as directed for urinary incontinence, # 200 EA, 11 Refill(s), Urinary incontinence, mixed, 115.9 Start Date: 04/13/22 Status: Ordered Quantity: 200.0 Unit: EA Repeat number: 12 Indications: Mixed incontinence; Start: 04-13-2022 DME MISCellane ous See Instructions, Dispense extra-large adult diapers, #200, use 1 diaper up to 7 times daily as directed for urinary incontinence, # 200 EA, 11 Refill(s), Urinary incontinence, mixed, 115.9 Start Date: 04/13/22 Status: Ordered Start: 06-30-2020 DME MISCellane ous See Instructions, Dispense 1 automatic blood pressure cuff, use as directed daily to monitor blood pressure, # 1 EA, 0 Refill(s), Essential hypertension, 114.8 Start Date: 06/30/20 Status: Ordered Medication Dispense Status: Completed Quantity: 1.0 Unit: EA Total Allowed Fills: 1 Fills Dispensed: 0 Indications: Essential (primary) hypertension; Start: 06-30-2020 DME MISCellane ous See Instructions, Dispense 1 automatic blood pressure cuff, use as directed daily to monitor blood pressure, # 1 EA, 0 Refill(s), Essential hypertension, 114.8 Start Date: 06/30/20 Status: Ordered Quantity: 1.0 Unit: EA Repeat number: 1 Indications: Essential (primary) hypertension; Start: 06-30-2020 DME MISCellane ous See Instructions, Dispense 1 automatic blood pressure cuff, use as directed daily to monitor blood pressure, # 1 EA, 0 Refill(s), Essential hypertension, 114.8 Start Date: 06/30/20 Status: Ordered docusate sodium 100 mg oral capsule (20 sources) Start: 09-26-2024 take 2 capsules by mouth three times daily as needed for constipation, then take 1 capsule by mouth in the morning as needed for constipation Colace 100 mg oral capsule See Instructions, PRN as needed for constipation, take TID - 2 caps in AM, 1 cap in PM, # 100 cap(s), 3 Refill(s), Pharmacy: [facility] [id number], 159, cm, 09/26/24 13:16:00 EDT, Height, kg, 09/26/24 13:16:00 EDT, Dosing Weight Start Date: 09/26/24 Status: Ordered Medication Dispense Status: Completed Quantity: 100.0 Unit: cap(s) Total Allowed Fills: 4 Fills Dispensed: 0 Start: 12-14-2017 End: 05-04-2025 take 1 capsule by mouth twice daily Docusate Sodium (Dok) 100 MG capsule Active 100 mg PO TWICE A DAY December 14, 2017 12:00am escitalopram 10 mg oral tablet (20 sources) Serotonin Reuptake Inhibitor Start: 12-14-2017 escitalopram 10 mg oral tablet Dose : 10 mg = 1 tab(s), Oral, qDay, # 90 tab(s), 3 Refill(s), Pharmacy: [place] [facility] [id number], Depressive state, 156, cm, 08/06/24 15:26:00 EDT, Height, kg, 08/06/24 15:26:00 EDT, Dosing Weight Start Date: 08/06/24 Status: Ordered Medication Dispense Status: Completed Quantity: 90.0 Unit: tab(s) Total Allowed Fills: 4 Fills Dispensed: 0 Indications: Depression, unspecified; ezetimibe 10 mg oral tablet (20 sources) Dietary Cholesterol Absorption Inhibitor Start: 08-06-2024 End: 09-10-2025 ezetimibe 10 mg oral tablet Dose : 10 mg = 1 tab(s), Oral, qDay, # 90 tab(s), 2 Refill(s), Pharmacy: [place] [facility] [id number], Mixed hyperlipidemia, 157, cm, 11/26/24 13:23:00 EDT, Height, kg, 11/26/24 13:23:00 EDT, Dosing Weight Start Date: 11/26/24 Stop Date: 08/23/25 Status: Ordered Medication Dispense Status: Completed Quantity: 90.0 Unit: tab(s) Total Allowed Fills: 3 Fills Dispensed: 0 Indications: Mixed hyperlipidemia; Start: 05-31-2022 End: 06-10-2022 Ezetimibe 10 mg tablet Disco ntinued NMA PO May 31, 2022 1:00am June 10, 2022 11:48am Start: 03-01-2022 End: 05-17-2024 take 1 tablet by mouth once daily Ezetimibe 10 mg tablet Discontinued 10 mg PO DAILY June 10, 2022 11:47am May 17, 2024 3:26pm Start: 04-15-2021 End: 04-24-2021 take 1 tablet by mouth once daily Ezetimibe 10 mg tablet Discontinued 10 mg PO DAILY April 15, 2021 1:00am April 24, 2021 10:19am furosemide 40 mg oral tablet (20 sources) Loop Diuretic Start: 08-08-2023 End: 05-25-2025 furosemide 40 mg oral tablet Dose : 40 mg = 1 tab(s), Oral, qDay, PRN Swelling, # 90 tab(s), 1 Refill(s), Pharmacy: [facility] [id number], Dependent edema, 157, cm, 11/26/24 13:23:00 EDT, Height, kg, 11/26/24 13:23:00 EDT, Dosing Weight Start Date: 11/26/24 Stop Date: 05/25/25 Status: Ordered Medication Dispense Status: Completed Quantity: 90.0 Unit: tab(s) Total Allowed Fills: 2 Fills Dispensed: 0 Indications: Edema, unspecified; Start: 09-28-2022 furosemide 40 mg oral tablet Dose : 40 mg = 1 tab(s), Oral, qDay, # 30 tab(s), 0 Refill(s), Pharmacy: [facility] [id number], 159, cm, 05/27/22 10:48:00 EST, Height Start Date: 09/28/22 Status: Ordered Start: 05-31-2022 End: 06-10-2022 Furosemide 40 mg tablet Disc ontinued NMA PO May 31, 2022 1:00am June 10, 2022 11:48am Start: 05-31-2022 End: 06-10-2022 Furosemide Discontinued TAB PO May 31, 2022 1:00am June 10, 2022 11:48am Start: 07-15-2020 End: 12-25-2021 take 1 tablet by mouth once daily Furosemide 40 mg tablet Discontinued 40 mg PO DAILY 90 3 September 08, 2020 11:56am April 24, 2021 10:39am hydrOXYzine hydrochloride 10 mg oral tablet (20 sources) Antihistamine Start: 09-12-2024 End: 11-21-2025 hydrOXYzine hydrochloride 10 mg oral tablet Dose : 20 mg = 2 tab(s), Oral, QID, PRN as needed for anxiety, X 90 day(s), # 90 tab(s), 3 Refill(s), 11/21/25 2:11:00 PM EDT, Pharmacy: [place] [facility] [id number], Anxiety, 157, cm, 11/26/24 13:23:00 EDT, Height, kg, 11/26/24 13:23:00 EDT, Dosing Weight Start Date: 11/26/24 Stop Date: 11/21/25 Status: Ordered Medication Dispense Status: Completed Quantity: 90.0 Unit: tab(s) Total Allowed Fills: 4 Fills Dispensed: 0 Indications: Anxiety disorder, unspecified; Start: 07-17-2024 End: 10-15-2024 take 1-2 tablets by mouth twice daily as needed for anxiety hydrOXYzine hydrochloride 10 mg oral tablet 1 to 2 tabs, Oral, BID, PRN as needed for anxiety, X 90 day(s), # 360 tab(s), 0 Refill(s), 10/15/24 2:43:00 PM EDT, Pharmacy: [place] [facility] [id number], Bipolar disorder, 159, cm, 01/17/24 10:08:00 EDT, Height, kg, 01/17/24 10:08:00 EDT, Dosing Weight Start Date: 07/17/24 Stop Date: 10/15/24 Status: Ordered Quantity: 360.0 Unit: tab(s) Repeat number: 1 Indications: Bipolar disorder, unspecified; Start: 12-15-2022 End: 05-17-2024 take 1 tablet by mouth twice daily as needed for anxiety Hydroxyzine Hcl 25 mg tablet Discontinued 25 mg PO TWICE A DAY as needed for anxiety December 15, 2022 12:00am May 17, 2024 3:26pm lactulose 667 mg/ml oral solution (13 sources) Osmotic Laxative Start: 09-26-2024 take 1 dose by mouth twice daily as needed lactulose 10 g/15 mL oral syrup Dose : 10 gram(s) = 15 mL, Oral, BID, PRN constipation, # 976 mL, 11 Refill(s), Pharmacy: [place] [facility] [id number], Constipation in female, 159, cm, 09/26/24 13:16:00 EDT, Height, kg, 09/26/24 13:16:00 EDT, Dosing Weight Start Date: 09/26/24 Status: Ordered Medication Dispense Status: Completed Quantity: 976.0 Unit: mL Total Allowed Fills: 12 Fills Dispensed: 0 Indications: Constipation, unspecified; Start: 05-17-2024 take 1 mL by mouth o nce daily as needed for constipation Lactulose 10 gram/15 mL solution Active 15 - 30 mL PO DAILY as needed for constipation May 17, 2024 1:00am Start: 08-09-2022 take 1 dose by mouth twice daily as needed lactulose 10 g/15 mL oral syrup Dose : 10 gram(s) = 15 mL, Oral, BID, PRN constipation, # 976 mL, 11 Refill(s), Pharmacy: [place] [facility] [id number], Constipation in female, 159, cm, 05/27/22 10:48:00 EST, Height, kg, 05/27/22 10:40:00 EST, Dosing Weight Start Date: 08/09/22 Status: Ordered Quantity: 976.0 Unit: mL Repeat number: 12 Indications: Constipation, unspecified; Start: 07-11-2020 take 1 dose by mouth twice daily as needed lactulose 10 g/15 mL oral syrup Dose : 10 gram(s) = 15 mL, Oral, BID, PRN constipation, # 976 mL, 11 Refill(s), Pharmacy: [place] [facility] [id number], Constipation in female, 158, cm, 06/30/20 10:23:00 EDT, Height, kg, 06/30/20 10:23:00 EDT, Dosing Weight Start Date: 07/11/20 Status: Ordered lisinopril 5 mg oral tablet (20 sources) Angiotensin Converting Enzyme Inhibitor Start: 12-14-2017 End: 08-23-2025 lisinopril 5 mg oral tablet Dose : 5 mg = 1 tab(s), Oral, qDay, # 90 tab(s), 2 Refill(s), Pharmacy: [place] [facility] [id number], 157, cm, 11/26/24 13:23:00 EDT, Height, kg, 11/26/24 13:23:00 EDT, Dosing Weight Start Date: 11/26/24 Stop Date: 08/23/25 Status: Ordered Medication Dispense Status: Completed Quantity: 90.0 Unit: tab(s) Total Allowed Fills: 3 Fills Dispensed: 0 metFORMIN hydrochloride 500 mg oral tablet (20 sources) Biguanide Start: 08-06-2024 End: 09-10-2025 metFORMIN 500 mg oral tablet (IR) Dose : 1,000 mg = 2 tab(s), Oral, BID, # 360 tab(s), 2 Refill(s), Pharmacy: [place] [facility] [id number], 157, cm, 11/26/24 13:23:00 EDT, Height, kg, 11/26/24 13:23:00 EDT, Dosing Weight Start Date: 11/26/24 Stop Date: 08/23/25 Status: Ordered Medication Dispense Status: Completed Quantity: 360.0 Unit: tab(s) Total Allowed Fills: 3 Fills Dispensed: 0 Start: 11-25-2023 take 2 tablets by mo uth twice daily at mealtime Metformin 500 mg tablet Active 1000 mg PO TWICE DAILY WITH MEALS November 25, 2023 8:29am Start: 07-02-2014 End: 11-25-2023 take 1 tablet by mouth twice daily at mealtime Metformin 500 MG tablet Discontinued 500 mg PO TWICE DAILY WITH MEALS 0 0 July 15, 2020 3:25pm November 25, 2023 8:32am resume 07/18/2020 Mometasone-Formoterol (Duler a) 200-5 mcg/actuation HFA aerosol inhaler (12 sources) Start: 09-18-2024 Mometasone-For moterol (Dulera) 200-5 mcg/actuation HFA aerosol inhaler Active 2 NMA INHALATION TWICE A DAY 14 02September 18, 2024 2:28pm Start: 09-18-2024 Mometasone-For moterol (Dulera) 200-5 mcg/actuation HFA aerosol inhaler Active 2 NMA INHALATION TWICE A DAY September 18, 2024 2:28pm Start: 09-12-2024 End: 09-18-2024 Mometasone-Formoterol (Duler a) 200-5 mcg/actuation HFA aerosol inhaler Discontinued 2 NMA INHALATION TWICE A DAY September 12, 2024 12:00am September 18, 2024 2:28pm Start: 09-12-2024 Mometasone-For moterol (Dulera) 200-5 mcg/actuation HFA aerosol inhaler Active 2 NMA INHALATION TWICE A DAY September 12, 2024 12:00am Start: 03-05-2024 End: 05-17-2024 Mometasone-Formoterol (Duler a) 200-5 mcg/actuation HFA aerosol inhaler Discontinued 2 NMA INHALATION TWICE A DAY 14 09March 05, 2024 1:00am May 17, 2024 3:27pm Start: 03-05-2024 End: 05-17-2024 Mometasone-Formoterol (Duler a) 200-5 mcg/actuation HFA aerosol inhaler Discontinued 2 NMA INHALATION TWICE A DAY March 05, 2024 1:00am May 17, 2024 3:27pm Multivitamin preparation (19 sources) Start: 03-16-2019 Multivitamin A ctive 1 EACH PO DAILY March 16, 2019 9:32am Start: 03-16-2019 End: 07-23-2022 Multivitamin Discontinued 1 EACH PO DAILY March 16, 2019 12:00am July 23, 2022 8:56am Start: 03-16-2019 End: 07-23-2022 Multivitamin Discontinued 1 EACH PO DAILY March 16, 2019 1:00am July 23, 2022 9:56am Start: 03-16-2019 Multivitamin A ctive 1 EACH PO DAILY March 16, 2019 12:00am Start: 03-16-2019 Multivitamin A ctive 1 EACH PO DAILY March 16, 2019 1:00am Multivitamin With Folic Acid (Daily-Dmitri (With Folic Acid)) 400 mcg tablet (17 sources) Start: 05-31-2022 Multivitamin W ith Folic Acid (Daily-Dmitri (With Folic Acid)) 400 mcg tablet Active 1 {tbl} PO DAILY May 31, 2022 1:00am Start: 05-31-2022 take 1 tablet by maria teresa th once daily Multivitamin With Folic Acid (Daily-Dmitri (With Folic Acid)) 400 mcg tablet Active 1 TABLET PO DAILY May 31, 2022 1:00am Start: 05-31-2022 take 1 tablet by maria teresa th once daily Multivitamin With Folic Acid (Daily-Dmitri (With Folic Acid)) 400 mcg tablet Active 1 TABLET PO DAILY May 31, 2022 12:00am nitrofurantoin, macrocrystals 25 mg / nitrofurantoin, monohydrate 75 mg oral capsule (1 source) Nitrofuran Antibacterial Start: 08-06-2024 End: 08-11-2024 nitrofurantoin macrocrystals-monohydrate 100 mg oral capsule Dose : 100 mg = 1 cap(s), Oral, BID, Take with food, X 5 day(s), # 10 cap(s), 0 Refill(s), 08/11/24 4:10:00 PM EDT, Pharmacy: [facility] [id number], UTI (urinary tract infection), 156, cm, 08/06/24 15:26:00 EDT, Height, 115, kg, 08/06/24 15:26:00 EDT, Dosing Weight Start Date: 08/06/24 Stop Date: 08/11/24 Status: Ordered Quantity: 10.0 Unit: cap(s) Repeat number: 1 Indications: Urinary tract infection, site not specified; prednisoLONE (19 sources) Corticosteroid Start: 03-16-2019 take 1 drop(s) into the eye(s) once daily Prednisolone Acetate (Pf) Active 1 DRP OP DAILY March 16, 2019 9:32am pt takes 1 drop to left eye daily. Start: 03-16-2019 End: 10-28-2021 take 1 drop(s) into the eye(s) once daily Prednisolone Acetate (Pf) Discontinued 1 DRP OP DAILY March 16, 2019 12:00am October 28, 2021 8:40am pt takes 1 drop to left eye daily. Start: 03-16-2019 End: 10-28-2021 take 1 drop(s) into the eye(s) once daily Prednisolone Acetate (Pf) Discontinued 1 DRP OP DAILY March 16, 2019 1:00am October 28, 2021 9:40am pt takes 1 drop to left eye daily. Start: 03-16-2019 take 1 drop(s) into the eye(s) once daily Prednisolone Acetate (Pf) Active 1 DRP OP DAILY March 16, 2019 1:00am pt takes 1 drop to left eye daily. QUEtiapine 400 mg oral tablet (20 sources) Atypical Antipsychotic Start: 11-25-2023 Quetiap ine (Seroquel) 400 mg tablet Active 400 mg PO AT BEDTIME November 25, 2023 8:30am Take with 200 mg tablet to = 600 mg at bedtime Start: 11-25-2023 take 2 tablets by mo uth at bedtime, then take 3 tablets by mouth at bedtime Quetiapine 200 mg tablet Active 200 mg PO AT BEDTIME November 25, 2023 12:00am Take with 400 mg tablet to = 600 mg at bedtime Start: 12-15-2018 End: 05-23-2023 QUEtiapine 200 mg oral table t Dose : 200 mg = 1 tab(s), Oral, Daily, 0 Refill(s) Start Date: 12/15/18 Status: Ordered Medication Dispense Status: Completed Total Allowed Fills: 1 Fills Dispensed: 0 Start: 12-15-2018 QUEtiapine 400 mg oral tablet Dose : 400 mg = 1 tab(s), Oral, qDay, # 60 tab(s), 0 Refill(s) Start Date: 12/15/18 Status: Ordered Medication Dispense Status: Completed Quantity: 60.0 Unit: tab(s) Total Allowed Fills: 1 Fills Dispensed: 0 Start: 12-14-2017 End: 11-25-2023 Quetiapine (Seroquel) 400 MG tablet Discontinued 600 mg PO AT BEDTIME December 14, 2017 12:00am November 25, 2023 8:32am sulfamethoxazole 800 mg / trimethoprim 160 mg oral tablet (7 sources) Dihydrofolate Reductase Inhibitor Antibacterial, Sulfonamide Antimicrobial Start: 01-28-2025 End: 02-04-2025 take 1 tablet by mouth twice daily Bactrim DS 800 mg-160 mg oral tablet Dose = 1 tab(s), Oral, BID, X 7 day(s), # 14 tab(s), 0 Refill(s), Pharmacy: [facility] [id number], 157, cm, 01/28/25 8:28:00 EDT, Height, 117.5, kg, 01/28/25 8:28:00 EDT, Dosing Weight Start Date: 01/28/25 Stop Date: 02/04/25 Status: Ordered Medication Dispense Status: Completed Quantity: 14.0 Unit: tab(s) Total Allowed Fills: 1 Fills Dispensed: 0 Indications: Unspecified symptoms and signs involving the genitourinary system; Dysuria; Start: 09-26-2024 End: 10-01-2024 take 1 tablet by mouth every twelve hours Bactrim DS 800 mg-160 mg oral tablet Dose = 1 tab(s), Oral, q12h, X 5 day(s), # 10 tab(s), 0 Refill(s), Pharmacy: [id number], 159, cm, 09/26/24 13:16:00 EDT, Height, 113.2, kg, 09/26/24 13:16:00 EDT, Dosing Weight Start Date: 09/26/24 Stop Date: 10/01/24 Status: Ordered Quantity: 10.0 Unit: tab(s) Repeat number: 1 Start: 02-15-2023 End: 02-22-2023 take 1 tablet by mouth twice daily Bactrim 400 mg-80 mg oral tablet Dose = 1 tab(s), Oral, BID, X 7 day(s), # 14 tab(s), 0 Refill(s), Pharmacy: [place] [facility] [id number], 159.1, cm, 02/15/23 10:20:00 EST, Height, 121.8, kg, 02/15/23 10:20:00 EST, Dosing Weight Start Date: 02/15/23 Stop Date: 02/22/23 Status: Ordered Start: 05-31-2022 take 1 tablet by [facility] twice daily Sulfamethoxazole-Trimethoprim Active 1 TABLET PO TWICE A DAY May 31, 2022 1:00am Start: 05-27-2022 End: 06-01-2022 take 1 tablet by mouth every twelve hours sulfamethoxazole-trimethoprim 800 mg-160 mg oral tablet Dose = 1 tab(s), Oral, q12h, X 5 day(s), # 10 tab(s), 0 Refill(s), Pharmacy: [id number], 159, cm, 05/27/22 10:48:00 EST, Height, 121.8 Start Date: 05/27/22 Stop Date: 06/01/22 Status: Ordered SUMAtriptan 100 mg oral tablet (20 sources) Serotonin-1b and Serotonin-1d Receptor Agonist Start: 09-26-2024 take 1 tablet by mouth every twenty-four hours SUMAtriptan 100 mg oral tablet Dose : 100 mg = 1 tab(s), Oral, qDay, PRN as needed for migraine headache, may repeat dose after 2 hours up to a maximum of 200 mg in 24 hours, # 18 tab(s), 2 Refill(s), Pharmacy: [place] [facility] [id number], 159, cm, 09/26/24 13:16:00 EDT, Height, kg, 09/26/24 13:16:00 EDT, Dosing Weight Start Date: 09/26/24 Status: Ordered Medication Dispense Status: Completed Quantity: 18.0 Unit: tab(s) Total Allowed Fills: 3 Fills Dispensed: 0 Start: 08-23-2022 take 1 tablet by maria teresa th every twenty-four hours SUMAtriptan 100 mg oral tablet Dose : 100 mg = 1 tab(s), Oral, qDay, PRN as needed for migraine headache, may repeat dose after 2 hours up to a maximum of 200 mg in 24 hours, # 18 tab(s), 2 Refill(s), Pharmacy: [place] [facility] [id number], 159, cm, 05/27/22 10:48:00 EST, Height, kg, 05/27/22 10:40:00 EST, Dosing Weight Start Date: 08/23/22 Status: Ordered Quantity: 18.0 Unit: tab(s) Repeat number: 3 Start: 05-31-2022 take 1 tablet by maria teresa th every two hours as needed Sumatriptan Succinate 100 mg tablet Active 100 mg PO Q2H as needed for migraines May 31, 2022 1:00am Start: 05-31-2022 Sumatriptan Carmona ccinate Active MG PO May 31, 2022 1:00am Start: 12-29-2021 take 1 tablet by maria teresa th every twenty-four hours SUMAtriptan 100 mg oral tablet Dose : 100 mg = 1 tab(s), Oral, qDay, PRN as needed for migraine headache, may repeat dose after 2 hours up to a maximum of 200 mg in 24 hours, # 18 tab(s), 2 Refill(s), Pharmacy: [facility] - [id number], 159, cm, 10/13/21 10:32:00 EDTMichelle. Start Date: 12/29/21 Status: Ordered Tiotropium [place] (17 sources) Anticholinergic Start: 09-20-2024 take 2.5 ug by inhalation once daily Tiotropium [place] (Spiriva Respimat) 2.5 mcg/actuation mist Active 2 NMA INHALATION daily 07 13September 20, 2024 10:55am Start: 09-20-2024 take 2.5 ug by inhal ation once daily Tiotropium [place] (Spiriva Respimat) 2.5 mcg/actuation mist Active 2 NMA INHALATION daily September 20, 2024 10:55am Start: 09-12-2024 End: 09-20-2024 take 2.5 ug by inhalation once daily Tiotropium [place] (Spiriva Respimat) 2.5 mcg/actuation mist Discontinued 2 NMA INHALATION daily September 12, 2024 12:00am September 20, 2024 10:56am Start: 08-06-2024 Spiriva Respim at 60 ACT 2.5 mcg/inh inhalation aerosol 2 puff(s), Inhalation, qDay, not to exceed 2 inhalations/day, # 4 gram(s), 0 Refill(s) Start Date: 08/06/24 Status: Ordered Medication Dispense Status: Completed Quantity: 4.0 Unit: g Total Allowed Fills: 1 Fills Dispensed: 0 Start: 03-05-2024 End: 05-17-2024 take 2.5 ug by inhalation once daily Tiotropium [place] (Spiriva Respimat) 2.5 mcg/actuation mist Discontinued 2 NMA INHALATION daily 04 09March 05, 2024 1:00am May 17, 2024 3:27pm administer at approximately the same time(s) each day tiZANidine 4 mg oral tablet (20 sources) Central alpha-2 Adrenergic Agonist Start: 12-14-2017 End: 07-01-2025 tiZANidine 4 mg oral tablet Dose : 4 mg = 1 tab(s), Oral, BID, PRN Muscle spasm, X 90 day(s), # 180 tab(s), 1 Refill(s), 07/01/25 7:32:00 AM EDT, Pharmacy: [place] [facility] [id number], 157, cm, 11/26/24 13:23:00 EDT, Height, kg, 11/26/24 13:23:00 EDT, Dosing Weight Start Date: 01/02/25 Stop Date: 07/01/25 Status: Ordered Medication Dispense Status: Completed Quantity: 180.0 Unit: tab(s) Total Allowed Fills: 2 Fills Dispensed: 0 24 hr trospium chloride 60 mg extended release oral capsule (1 source) Cholinergic Muscarinic Antagonist Start: 02-15-2023 trospium 60 mg oral capsule, extended release Dose : 60 mg = 1 cap(s), Oral, qAM, # 30 cap(s), 11 Refill(s), Pharmacy: [facility] [id number], 159.1, cm, 02/15/23 10:20:00 EST, Height, kg, 02/15/23 10:20:00 EST, Dosing Weight Start Date: 02/15/23 Status: Ordered Walker, platform (5 sources) Start: 01-17-2024 mariel Cameron See Instructions, Dispense 1 walker with seat. Diagnosis is E66.01 & Z74.09, # 1 EA, 0 Refill(s), Morbid obesity with BMI of 45.0-49.9, adult Impaired mobility and ADLs, 115 Start Date: 01/17/24 Status: Ordered Medication Dispense Status: Completed Quantity: 1.0 Unit: EA Total Allowed Fills: 1 Fills Dispensed: 0 Indications: Other reduced mobility; Morbid (severe) obesity due to excess calories; Start: 01-17-2024 mariel Cameron See Instructions, Dispense 1 walker with seat. Diagnosis is E66.01 & Z74.09, # 1 EA, 0 Refill(s), Morbid obesity with BMI of 45.0-49.9, adult Impaired mobility and ADLs, 115 Start Date: 01/17/24 Status: Ordered Quantity: 1.0 Unit: EA Repeat number: 1 Indications: Other reduced mobility; Morbid (severe) obesity due to excess calories; Completed/Discontinued Medications Medication Drug Class(es) Dates Sig (Normalized) Sig (Original) acetaminophen 325 mg / HYDROcodone bitartrate 5 mg oral tablet (20 sources) Opioid Agonist Start: 03-23-2018 End: 03-25-2018 Hydrocodone-Acetami nophen 1 TABLET tablet Discontinued 1 {tbl} PO EVERY 4 HOURS NEEDED as needed for Pain 2 2 0 March 23, 2018 1:00am March 24, 2018 1:00am March 25, 2018 1:13am Pain, unspecified Start: 03-23-2018 End: 03-25-2018 take 1 tablet by mouth every four hours as needed Hydrocodone-Acetaminophen Discontinued 1 TABLET PO EVERY 4 HOURS NEEDED 2 2 March 23, 2018 1:00am March 25, 2018 1:13am Start: 10-31-2014 End: 10-31-2014 Hydrocodone-Acetaminophen 1 TABLET tablet Discontinued 1 - 2 {tbl} PO EVERY 6 HOURS NEEDED as needed for Pain 90 October 31, 2014 12:00am October 31, 2014 12:10pm Start: 10-31-2014 End: 10-31-2014 take 1 tablet by mouth every six hours as needed Hydrocodone-Acetaminophen Discontinued 1 - 2 TABLET PO EVERY 6 HOURS NEEDED October 31, 2014 12:00am October 31, 2014 12:10pm acetaminophen 325 mg / oxyCODONE hydrochloride 5 mg oral tablet (9 sources) Opioid Agonist Start: 06-19-2023 End: 08-08-2023 Oxycodone-Acetaminophen 5-32 5 mg tablet Discontinued 1 {tbl} PO EVERY 6 HOURS NEEDED as needed for Pain 12 3 0 June 19, 2023 August 08, 2023 11:07am Dental abscess Periapical abscess without sinus Start: 06-19-2023 End: 08-08-2023 take 1 tablet by mouth every six hours as needed Oxycodone-Acetaminophen Discontinued 1 TABLET PO EVERY 6 HOURS NEEDED 12 3 June 19, 2023 August 08, 2023 11:07am [id number] 200 actuat albuterol 0.09 mg/actuat metered dose inhaler (20 sources) beta2-Adrenergic Agonist Start: 10-27-2021 End: 03-27-2024 Albuterol Sulfate 90 mcg/actuation HFA aerosol inhaler Discontinued 2 NMA INHALATION EVERY 6 HOURS as needed for shortness of breath or wheezing 8.5 6 September 14, 2023 2:43pm March 27, 2024 9:13am Start: 10-27-2021 End: 01-26-2023 take 1 puff(s) by inhalation every six hours Albuterol Sulfate Discontinued 2 PUFF INHALATION EVERY 6 HOURS 8.5 December 25, 2021 11:11am May 31, 2022 3:22pm Start: 02-09-2021 End: 03-30-2021 take 1 puff(s) by inhalation every four hours as needed Albuterol Sulfate (Ventolin Hfa) 90 mcg/actuation HFA aerosol inhaler Discontinued 1 - 2 PUFF INHALATION EVERY 4 HOURS NEEDED February 09, 2021 3:51pm March 30, 2021 11:10am Start: 02-09-2021 End: 03-30-2021 Albuterol Sulfate (Ventolin Hfa) 90 mcg/actuation HFA aerosol inhaler Discontinued 1 - 2 NMA INHALATION EVERY 4 HOURS NEEDED as needed for Wheezing 1 February 09, 2021 1:00am March 30, 2021 11:10am Start: 02-09-2021 End: 03-30-2021 take 1 puff(s) by inhalation every four hours as needed Albuterol Sulfate (Ventolin Hfa) 90 mcg/actuation HFA aerosol inhaler Discontinued 1 - 2 PUFF INHALATION EVERY 4 HOURS NEEDED February 09, 2021 1:00am March 30, 2021 11:10am apixaban 5 mg oral tablet (20 sources) Factor Xa Inhibitor Start: 08-12-2020 End: 06-23-2021 take 1 tablet by mouth twice daily Apixaban 5 mg tablet Discontinued 5 mg PO TWICE A DAY 60 September 08, 2020 11:56am June 23, 2021 11:23am Start: 07-15-2020 End: 08-12-2020 take 2 tablets by mouth twice daily, then take 1 tablet by mouth twice daily Apixaban 5 MG tablet Discontinued 10 mg PO TWICE A DAY 70 0 July 15, 2020 12:00am August 12, 2020 10:03am 2 tabs twice daily for 5 more days, then 1 tab twice daily for 6 months Start: 07-15-2020 End: 08-12-2020 take 2 tablets by mouth twice daily, then take 1 tablet by mouth twice daily Apixaban Discontinued 10 MG PO TWICE A DAY July 15, 2020 12:00am August 12, 2020 10:03am 2 tabs twice daily for 5 more days, then 1 tab twice daily for 6 months aspirin 325 mg delayed release oral tablet (20 sources) Platelet Aggregation Inhibitor, Nonsteroidal Anti-inflammatory Drug Start: 10-31-2014 End: 10-31-2014 take 1 tablet by mouth twice daily Aspirin 325 MG tablet Discontinued 325 mg PO TWICE A DAY 30 0 October 31, 2014 12:00am October 31, 2014 12:03pm diclofenac sodium 25 mg delayed release oral tablet (20 sources) Nonsteroidal Anti-inflammatory Drug Start: 11-25-2023 End: 08-30-2024 take 1 tablet by mouth once daily as needed for pain Diclofenac Sodium 25 mg tablet,delayed release (DR/EC) Discontinued 25 mg PO DAILY as needed for pain November 25, 2023 12:00am August 30, 2024 10:43am Start: 12-15-2022 End: 11-25-2023 take 1 tablet by mouth once daily as needed for pain Diclofenac Sodium 100 mg tablet extended release 24 hr Discontinued 100 mg PO DAILY as needed for arthritis pain December 15, 2022 12:00am November 25, 2023 8:28am Start: 11-23-2022 End: 03-23-2023 diclofenac potassium 25 mg o ral tablet Dose : 25 mg = 1 tab(s), Oral, BID, PRN as needed for arthritis, X 30 day(s), # 60 tab(s), 3 Refill(s), 03/23/23 10:49:00 AM EST, Pharmacy: [place] [facility] [id number], Generalized osteoarthritis, 159, cm, 11/23/22 10:24:00 EDT, Height, kg, 11/23/22 10:24:00 EDT, Dosing Weight Start Date: 11/23/22 Stop Date: 03/23/23 Status: Ordered Qpbobvrljsz-Qwiiymxjs-Ippvyy er (5 sources) Anticholinergic, Corticosteroid, beta2-Adrenergic Agonist Start: 07-31-2024 End: 09-12-2024 Xpwzwvqfwtj-Edhitdiiq-Dcllsk er (Trelegy Ellipta) 100-62.5-25 mcg blister with device Discontinued 1 NMA INHALATION Q24H 60 5 July 31, 2024 12:00am September 12, 2024 1:07pm Shortness of breath Shortness of breath Start: 07-31-2024 End: 09-12-2024 Qawthpohsvf-Bdwqmhyts-Khyqxc er (Trelegy Ellipta) 100-62.5-25 mcg blister with device Discontinued 1 NMA INHALATION Q24H 60 July 31, 2024 12:00am September 12, 2024 1:07pm Start: 07-31-2024 Fluticasone-Um eclidin-Vilanter (Trelegy Ellipta) 100-62.5-25 mcg blister with device Active 1 NMA INHALATION Q24H 60 July 31, 2024 12:00am Lpvbhhczeqz-Oyinehscp-Tutqpp er (6 sources) Start: 02-10-2024 End: 03-05-2024 Vhjwnfnffrl-Yabkyowsu-Smemck er (Trelegy Ellipta) 200-62.5-25 mcg blister with device Discontinued 1 NMA INHALATION DAILY 60 February 10, 2024 1:00am March 05, 2024 1:21pm Stage 1 mild COPD by GOLD classification Chronic obstructive pulmonary disease, unspecified Start: 02-10-2024 End: 03-05-2024 Ztmuhctbgrw-Srgfcrjnn-Pjbynn er (Trelegy Ellipta) 200-62.5-25 mcg blister with device Discontinued 1 NMA INHALATION DAILY February 10, 2024 1:00am March 05, 2024 1:21pm gabapentin 800 mg oral tablet (20 sources) Anti-epileptic Agent Start: 10-28-2021 End: 06-26-2022 gabapentin 800 mg oral tablet Dose : 800 mg = 1 tab(s), Oral, TID, # 90 tab(s), 0 Refill(s), other reason (Rx), Lumbar radiculopathy, 121.8 Start Date: 05/27/22 Stop Date: 06/26/22 Status: Ordered Medication Dispense Status: Completed Quantity: 90.0 Unit: tab(s) Total Allowed Fills: 1 Fills Dispensed: 0 Indications: Radiculopathy, lumbar region; Start: 04-24-2021 End: 10-28-2021 take 2 capsules by mouth four times daily Gabapentin (Neurontin) 300 mg capsule Discontinued 600 mg PO 4 TIMES DAILY April 24, 2021 10:19am October 28, 2021 9:40am Start: 09-04-2018 End: 04-24-2021 take 2 capsules by mouth three times daily Gabapentin (Neurontin) 300 MG capsule Discontinued 600 mg PO THREE TIMES A DAY September 04, 2018 12:00am April 24, 2021 10:20am Multivitamin 1 EACH tablet (6 sources) Start: 03-16-2019 End: 07-23-2022 Multivitamin 1 EACH tablet Discontinued 1 NMA PO DAILY March 16, 2019 1:00am July 23, 2022 9:56am pantoprazole 20 mg delayed release oral tablet (20 sources) Proton Pump Inhibitor Start: 12-25-2022 End: 04-26-2024 take 1 tablet by mouth every twelve hours Pantoprazole 20 mg tablet,delayed release (DR/EC) Discontinued 20 mg PO Q12H 180 90 2 August 18, 2023 8:59am April 26, 2024 7:51am penicillin v potassium 500 mg oral tablet (9 sources) Start: 06-19-2023 End: 11-25-2023 take 1 tablet by mouth four times daily Penicillin V Potassium 500 mg tablet Discontinued 500 mg PO 4 TIMES DAILY June 19, 2023 12:00am November 25, 2023 8:30am Prednisolone Acetate (Pf) 5 ML drops,suspension (6 sources) Start: 03-16-2019 End: 10-28-2021 take 1 drop(s) into the eye(s) once daily Prednisolone Acetate (Pf) 5 ML drops,suspension Discontinued 1 NMA OP DAILY March 16, 2019 1:00am October 28, 2021 9:40am corneal transplant pt takes 1 drop to left eye daily. Start: 03-16-2019 End: 10-28-2021 take 1 drop(s) into the eye(s) once daily Prednisolone Acetate (Pf) 5 ML drops,suspension Discontinued 1 NMA OP DAILY March 16, 2019 1:00am October 28, 2021 9:40am pt takes 1 drop to left eye daily. traMADol hydrochloride 50 mg oral tablet (20 sources) Opioid Agonist Start: 04-24-2021 End: 10-27-2021 take 1 tablet by mouth three times daily as needed for pain Tramadol 50 mg tablet Discontinued 50 mg PO THREE TIMES A DAY as needed for Pain April 24, 2021 10:20am October 27, 2021 10:19am Start: 07-02-2014 End: 04-24-2021 take 1 tablet by mouth twice daily Tramadol 50 MG tablet Discontinued 50 mg PO TWICE A DAY July 02, 2014 12:00am April 24, 2021 10:20am 7 actuat umeclidinium 0.0625 mg/actuat / vilanterol 0.025 mg/actuat dry powder inhaler (20 sources) Anticholinergic, beta2-Adrenergic Agonist Start: 05-17-2024 End: 07-31-2024 Umeclidinium-Vilanterol (Anoro Ellipta) 62.5-25 mcg/actuation blister with device Discontinued 1 NMA INHALATION DAILY May 17, 2024 1:00am July 31, 2024 1:24pm Start: 06-23-2021 End: 02-10-2024 Umeclidinium-Vilanterol (Ano ro Ellipta) 62.5-25 mcg/actuation blister with device Discontinued 1 NMA INHALATION daily 60 5 January 04, 2024 2:29pm February 10, 2024 12:36pm Start: 06-23-2021 End: 07-19-2023 Umeclidinium-Vilanterol (Ano ro Ellipta) 62.5-25 mcg/actuation blister with device Active 1 INH INHALATION daily 60 July 19, 2023 3:28pm Problems Active Problems Problem Classification Problem Date Documented Da te Episodic/Chronic Abdominal hernia (6 sources) Hiatal hernia; Translations: [Diaphragmatic hernia without obstruction or gangrene] 01-26-2024 Episodic Allergic reactions (1 source) Urticaria 10-11-2018 Episodic Anxiety disorders (2 sources) Anxiety 11-26-2024 Chronic Chronic obstructive pulmonary disease and bronchiectasis (20 sources) Mild chronic obstructive pulmonary disease; Translations: [Chronic obstructive pulmonary disease, unspecified] Onset: 5 Chronic Congestive heart failure; nonhypertensive (20 sources) Heart failure with normal ejection fraction; Translations: [Unspecified diastolic (congestive) heart failure] Onset: Chronic Diabetes mellitus without complication (20 sources) Diabetes mellitus; Translations: [Type 2 diabetes mellitus without complications] 08-22-2020 Chronic Disorders of lipid metabolism (20 sources) Hyperlipidemia; Translations: [Hyperlipidemia, unspecified] Onset: 5 Chronic Disorders of teeth and jaw (20 sources) Dental caries; Translations: [Dental caries, unspecified] 06-14-2023 Episodic Esophageal disorders (6 sources) Gastroesophageal reflux disease; Translations: [Gastro-esophageal reflux disease without esophagitis] 01-26-2024 Chronic Essential hypertension (20 sources) Essential hypertension; Translations: [Essential (primary) hypertension] Onset: 5 Chronic Comment on above: controlled on meds Genitourinary symptoms and ill-defined conditions (7 sources) Mixed urinary incontinence 10-11-2018 Chronic Genitourinary symptoms and ill-defined conditions (7 sources) Unspecified symptoms and signs involving the genitourinary system; Translations: [Dysuria] Onset: 3 Episodic Headache; including migraine (7 sources) Migraine 09-19-2019 Chronic Headache; including migraine (9 sources) Acute pain in face; Translations: [Acute facial pain] 06-19-2023 Episodic Immunizations and screening for infectious disease (2 sources) Encounter for screening for human papillomavirus (HPV); Translations: [Encounter for screening for human papillomavirus (HPV)] Onset: 3 Episodic Mood disorders (20 sources) Bipolar disorder; Translations: [Bipolar disorder, unspecified] Chronic Nonspecific chest pain (20 sources) Chest pain; Translations: [Chest pain, unspecified] 12-23-2020 Episodic Osteoarthritis (7 sources) Degenerative joint disease involving multiple joints 10-11-2018 Chronic Osteoporosis (7 sources) Osteoporosis; Translations: [Age-related osteoporosis without current pathological fracture] Onset: 5 12-26-2022 Chronic Other aftercare (20 sources) Wound finding; Translations: [Encounter for other specified aftercare] 10-05-2018 Episodic Other circulatory disease (20 sources) Transient hypotension; Translations: [Hypotension, unspecified] 11-13-2020 Episodic Other ear and sense organ disorders (5 sources) Decreased hearing 01-17-2024 Chronic Other gastrointestinal disorders (7 sources) Constipation 08-28-2019 Episodic Other inflammatory condition of skin (6 sources) Pruritic rash 11-23-2022 Episodic Other injuries and conditions due to external causes (13 sources) Food lodged in esophagus; Translations: [Food in esophagus causing other injury, initial encounter] 12-25-2022 Episodic Other injuries and conditions due to external causes (1 source) Food in esophagus causing other injury, initial encounter; Translations: [Foreign body in esophagus] 12-25-2022 Episodic Other lower respiratory disease (20 sources) Dyspnea; Translations: [Dyspnea, unspecified] 03-30-2021 Episodic Other lower respiratory disease (20 sources) Hypoxia; Translations: [Hypoxemia] 03-30-2021 Episodic Other lower respiratory disease (7 sources) Dyspnea, unspecified; Translations: [Other respiratory abnormalities] Episodic Other lower respiratory disease (1 source) Hypoxemia; Translations: [Hypoxemia] Episodic Other lower respiratory disease (2 sources) Shortness of breath; Translations: [Shortness of breath] Onset: 5 Episodic Other nutritional; endocrine; and metabolic disorders (9 sources) Body mass index 40+ - severely obese 06-30-2020 Chronic Other screening for suspected conditions (not mental disorders or infectious disease) (2 sources) Encounter for screening for malignant neoplasm of cervix; Translations: [Encounter for screening for malignant neoplasm of cervix] Onset: 3 Episodic Other skin disorders (6 sources) Inflammatory dermatosis 11-23-2022 Episodic Residual codes; unclassified (20 sources) Edema, generalized; Translations: [Generalized edema] 08-22-2020 Episodic Residual codes; unclassified (7 sources) Needs influenza immunization 03-25-2021 Episodic Residual codes; unclassified (6 sources) Bilateral lower limb edema 10-04-2022 Episodic Residual codes; unclassified (6 sources) Dependent edema 12-14-2022 Episodic Residual codes; unclassified (6 sources) Postmenopausal state 11-23-2022 Episodic Schizophrenia and other psychotic disorders (7 sources) Undifferentiated schizophrenia 10-11-2018 Chronic Skin and subcutaneous tissue infections (2 sources) Cellulitis of lower leg 11-26-2024 Episodic Spondylosis; intervertebral disc disorders; other back problems (20 sources) Lumbosacral spondylosis without myelopathy; Translations: [Spondylosis without myelopathy or radiculopathy, lumbosacral region] Onset: 5 08-22-2020 Chronic Spondylosis; intervertebral disc disorders; other back problems (20 sources) Disorder of vertebral column; Translations: [Sacrococcygeal disorders, not elsewhere classified] Onset: 5 08-22-2020 Episodic Substance-related disorders (20 sources) Nicotine dependence; Translations: [Nicotine dependence, unspecified, uncomplicated] Onset: Chronic Comment on above: Currently 1 pack/day repeat LDCT December 2024 Superficial injury; contusion (20 sources) Contusion of chest; Translations: [Contusion of unspecified front wall of thorax, initial encounter] 11-13-2020 Episodic Unclassified (7 sources) Patient encounter status 03-16-2019 Unclassified (5 sources) Finding of functional performance and activity (finding) 07-06-2023 Urinary tract infections (13 sources) Bacterial urinary infection; Translations: [Urinary tract infection, site not specified] Onset: 3 05-27-2022 Episodic Past or Other Problems Problem Classification Problem Date Documented Da te Episodic/Chronic Negra-; endo-; and myocarditis; cardiomyopathy (except that caused by tuberculosis or sexually transmitted disease) (20 sources) Pericardial effusion; Translations: [Pericardial effusion (noninflammatory)] Onset: 07-13-2020 08-22-2020 Episodic Pulmonary heart disease (20 sources) H/O: pulmonary embolus; Translations: [Personal history of pulmonary embolism] Onset: 07-13-2020 Episodic Comment on above: Pulmonary embolism o n right subsegmental pulmonary embolism in the right middle lobe. Viral infection (20 sources) Disease caused by 2019-nCoV; Translations: [COVID-19] Onset: 02-09-2021 Episodic Results Test Name Value Interpretation Reference Range Facility AMOXICILLIN+CLAVULANATE:SUSC :PT:ISOLATE:ORDQN:MICon 01-28-2025 Amoxicillin+Clavulanate HERMINIA [Susc] >100,000 cfu/ml Escherichia coli [facility] Work Phone: Amoxicillin+Clavulanate HERMINIA [Susc]on 01-28-2025 Escherichia coli Escherichia coli [facility] Work Phone: Low Dose CT Lung Screeningon 01-07-[address] Lung Screening [facility] Imaging Services [address] [place] [id number] Lung Screening MR#: [id number] Acct: [id number] Name: SILVIA ROSADO Rep #: [id number] : 1950 F 74 From: Mahendra Vo MD PCP: FAISAL ORO Status: REG CLI Study: Low Dose CT Lung Screening Date of Exam: 01/07 Exam# [id number] Ordering Dr: Coral Clemons NP PROCEDURE: LOW DOSE CT LUNG SCREENING 01/07/2025 REASON FOR EXAM: SMOKER 1 pack per day smoker times 50 years TECHNIQUE: Procedure Code: CTLUNGSCREEN Modality: CT Procedure: LOW DOSE CT LUNG SCREENING Coronal and Sagittal reconstruction series were provided. One or more dose reduction techniques were used (e.g., Automated exposure control, adjustment of the mA and/or kV according to patient size, use of iterative reconstruction technique). REFERENCE LINK: [facility] Lung-RADS RADIATION DOSE SUMMARY: CTDlvol: 4.02 mGy DLP: 136.92 mGycm COMPARISON: 2023, 2022 FINDINGS: PULMONARY NODULES: (Only nodules >3mm are reported) Lung windows show chronic interstitial changes in both lung rodriguez with nonspecific pleural thickening in the apices, and along the left fissure. There is evidence of chronic bronchitis and subsegmental atelectasis in the right middle lobe. There is no organized infiltrate, effusion, or suspicious noncalcified mass or nodule. No significant interval change since the previous study. Limited soft tissue windows show a normal-appearing thyroid gland. No suspicious adenopathy. Thoracic aorta tapers normally. Calcified coronary vessels are noted. Limited cuts through the upper abdomen do not show a suspicious abnormality. Bony structures show degenerative change CT/Low Dose CT Lung Screening IMPRESSION: Chronic changes, no superimposed process or significant change. No suspicious noncalcified mass or nodule Coronary artery calcification (CAC) is is present Lung-RADS Category: 2 BENIGN (BASED ON IMAGING FEATURES OR INDOLENT BEHAVIOR). RECOMMEND 12-MONTH SCREENING LDCT. Other Significant Findings: Reading Location: [place] [address] CC: FAISAL Clemons; FAISAL OMER Pickle Cutter: Signed Normal [facility] Bedside Glucoseon 12-17-2024 FINGERSTICK GLU 112 mg/dL High 74-106 [facility] Comment on above: Result Comment: SCARLET MOYENT OF PATIENT CARE PER NURSING PROTOCOL Performed By: #### L 501.080 ####[facility] [id number] [place], [address] Fluor Guidance for Spine Inj on 12-17-2024 Fluor Guidance for Spine Inj [facility] Imaging Services [address] [place] [address] Fluor Guidance for Spine Inj MR#: [id number] Acct: [id number] Name: SILVIA ROSADO Rep #: [id number] : 1950 F 74 From: Dwight suarez MD PCP: FAISAL ORO Status: REG SD Study: Fluor Guidance for Spine Inj Date of Exam: Exam# [id number] Ordering Dr: Brandon Cuellar MD PROCEDURE: FLUOR GUIDANCE FOR SPINE INJ 12/17/2024 REASON FOR EXAM: CAUDAL BLOCK TECHNIQUE: Procedure Code: RADSPN Modality: DX Procedure: FLUOR GUIDANCE FOR SPINE INJ Intraoperative fluoroscopic services provided for caudal block. 20.5 seconds of fluoroscopy. Radiation dose: 17.42 mGy. 1 image was provided. COMPARISON: June 18, 2024 FINDINGS: Intraoperative imaging provided for caudal block. RAD/Fluor Guidance for Spine Inj IMPRESSION: Intraoperative imaging provided for caudal block. Reading Location: [facility]--1 CC: SHIPPING/RECEIVING CLERK-C JOSE OMER; Dr. Brandon Cuellar MD Pickle Cutter: Signed Normal [facility] Glucose measurement at [facility] deOrdered By: Brandon Cuellar on 12-17-2024 Glucose [Mass/Vol] 112 mg/dL High 74-106 [facility] Comment on above: MANAGEMENT OF PATIEN T CARE PER NURSING PROTOCOL MR/POSTOP.ANEon 12-17-2024 MR/POSTOP.[facility] Medical Records Department [address] [place] [address] Anesthesia Postop Eval I 12/17/24 1303 MR#: [id number] Acct: [id number] Name: SILVIA ROSADO JONEL Rep #: [id number] : 1950 74 From: Natali Galaviz CRNA PCP: FAISAL ORO Status:REG SDC Y Race: C Location: [place] [address] Anesthesia: Postop Eval I Current Vital Signs Temperature: 97.4 F Pulse Rate: 62 Blood Pressure: 124/64 Respiratory Rate: 16 Pulse Ox: 94 Oxygen Delivery Method: Room Air Assessment Airway patent: Yes Spontaneous unlabored respirations: Yes Mental status: Awake and Calm nausea: No Vomiting: No Anesthesia Complication: No Fluid Hydration Crystalloid volume administer (ml): 200 Total IV fluid infused: 200 Progress Note Anesthesia document: Postop Eval 1 completed: Yes 12/17/24 1304 Date Natali Galaviz LUMBER CARRIER Cosigner Signature: Date CC: Signed Normal [facility] MR/[id number] 12-17-2024 [facility] Medical Records Department [address] [place] [address] Anesthesia Postop Eval II 12/17/24 1411 MR#: [id number] Acct: [id number] Name: SILVIA ROSADO JONEL Rep #: [id number] : 1950 74 From: Louis Lugo MD PCP: FAISAL ORO Status:REG SDC Y Race: C Location: [address] Anesthesia Postop Eval I Sum Postop Eval Completion status Anesthesia document: Postop Eval 1 completed: Yes Anesthesia Postop Eval I Summary Anesthesia Postop Eval I Summary: Anesthesia Postop Eval I: Assessment Summary Airway patent Yes 12/17/24 13:04 LUMBER CARRIERCECILE Spontaneous unlabored Yes 12/17/24 13:04 LUMBER CARRIER.LAURENY respirations Mental status Awake,Calm 12/17/24 13:04 LUMBER CARRIER.SKOBY nausea No 12/17/24 13:04 LUMBER CARRIER.SKOBY Vomiting No 12/17/24 13:04 LUMBER CARRIER.SKOBY Anesthesia Postop Eval I: Fluid Summary Crystalloid volume administer 200 12/17/24 13:04 LUMBER CARRIER.SKOBY (ml) Colloids volume administered ( ml) Blood Product volume administered (ml) Total IV fluid infused 200 12/17/24 13:04 LUMBER CARRIER.SKOBY Anesthesia Postop Eval I: Summary Notes Anesthesia Complication No 12/17/24 13:04 LUMBER CARRIER.SKOBY Anesthesia Complication Comment: Post-operative progress note Anesthesia: Postop Eval II Evaluation Mental status: Awake Pain Level: 0 nausea: No Vomiting: No 12/17/24 1411 Date Louis Cabelloignkarlie Signature: Date CC: Signed Normal [facility] Operative Reporton 5 Operative Report [facility] Medical Records Department [address] [place] [address] Operative Report 12/17/24 1302 MR#: [id number] Acct: [id number] Name: SILVIA ROSADO Rep #: [id number] : 1950 74 From: Brandon Cuellar MD PCP: FAISAL ORO Status:[place] [facility] [place] [address] Operative Report (Standard) Operative Information Date of Procedure: 12/17/24 Pre-Operative Diagnosis: Lumbosacral radiculopathy, lumbosacral degenerative disc disease, lumbosacral spinal stenosis Post-Operative Diagnosis: Lumbosacral radiculopathy, lumbosacral degenerative disc disease, lumbosacral spinal stenosis Surgery/Procedure Performed: Diagnostic/therapeutic caudal epidural steroid injection under fluoroscopic guidance 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 BLOOD LOSS: Minimal. COMPLICATIONS: None. DESCRIPTION OF PROCEDURE: History and physical of today was reviewed. Risks and benefits of the procedure were explained. The patient understood and agreed to proceed. Informed consent was obtained. IV inserted per routine protocol. The patient was taken to the operating room and placed in the prone position with a pillow positioned underneath the abdomen. The lower back and tailbone area was prepped and draped in a sterile fashion using iodine x3. Under fluoroscopy guidance on a lateral view, the caudal space was identified. The skin and subcutaneous tissue was anesthetized with approximately 3 mL of 1% lidocaine using a 25-gauge regular needle. Under direct visualization with fluoroscopy, using a 22-gauge 3-1/2-inch spinal needle, the needle was advanced via the skin through the sacral hiatus. The tip of the needle was passed through the sacrococcygeal ligament and advanced to approximately S4 area. After negative aspiration of blood or CSF, a total of 3 mL of contrast was injected to confirm correct placement of the needle as well as cephalad spread. The spread was followed to approximately L5 area. After confirmation on AP as well as lateral view and repeated negative aspiration, a total of 15 mL of preservative-free 0.125% Marcaine with 80 mg of Depo-Medrol was injected easily. The needle was then removed intact. The patient experienced no sign or symptoms of intrathecal or intravascular injection. The patient experienced no paresthesia. The procedure was completed without any apparent difficulty or any complications. The patient appeared to tolerate it well. ASSESSMENT AND PLAN: This is a 74-year-old female with Lumbosacral radiculopathy, lumbosacral spinal stenosis, lumbosacral degenerative disc disease, status post diagnostic/therapeutic caudal epidural steroid injection under fluoroscopic guidance, patient will continue her current medications, patient will follow-up in approximately 2 weeks for reevaluation. Surgical Findings: none Complications Complications: No Admit VTE Documentation VTE Present on Admission: No VTE Mechan Device Prophylaxis: None VTE Pharm Prophylaxis ordered?: No 12/17/24 1304 Cosigner Signature (if applicable): CC: SHIPPING/RECEIVING CLERK-C JOSE OMER; Dr. Brandon Cuellar MD Signed [facility] MR/PAT.TERRIEon 12-11-2024 MR/PAT.[facility] Medical Records Department [address] [place] [address] PAT - Anesthesia 12/11/24 1604 MR#: [id number] Acct: [id number] Name: SILVIA ROSADO Rep #: [id number] : 1950 74 From: Giovanni Thakkar MD PCP: FAISAL ORO [place] [facility] [place] C [place] [facility] [place]Assessment Diagnosis/Proposed Procedure Planned Operative Procedure(s): CAUDAL EPIDURAL STEROID INJECTION UNDER FLUOROSCOPY Anesthesia History Anesthesia History - protection consultant: Anesthesia History - protection consultant Hx Hospitalization No 12/11/24 14:33 Any Problems With Anesthesia No 12/11/24 14:33 Cholinesterase deficiency No 12/11/24 14:33 You/Your Family Experience No 12/11/24 14:33 fever (hyperthermia) with Relationship Recent Exposure to Contagious No 09/03/24 09:24 Disease Does patient have nerve No 12/11/24 14:33 stimulator Patient instructed to have device shut off --Does patient have Pacemaker or ICD? When Was Last Pacemaker Check QUESTION #4 FULL TEXT: You/Your Family Experience fever (hyperthermia) with Anesthesia Last Oral Intake Last Oral intake: Last Oral Intake NPO since Meds taken in AM with sips of water? 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 - protection consultant: PONV - protection consultant Female Yes 12/11/24 14:33 HX of Motion Sickness No 12/11/24 14:33 HX of N/V After Surgery No 12/11/24 14:33 Non-Smoker No 12/11/24 14:33 Duration of Surgery greater No 12/11/24 14:33 than 60 minutes Number of Risk Factors 1 12/11/24 14:33 PONV Score Low Risk 12/11/24 14:33 Height Weight Height Weight: Anesthesia: Height Weight Height 5 ft 3 in 09/12/24 12:38 Respiratory Assessment Respiratory Assessment - protection consultant: Respiratory Tract Infection Hx - protection consultant Hx Respiratory Tract Infection No 12/11/24 14:33 STOP Sleep Apnea STOP Sleep Apnea - protection consultant: STOP Sleep Apnea - protection consultant Hx Hypertension Yes: CONTROLLED WITH MED 12/11/24 14:33 Hx Sleep Apnea No 12/11/24 14:33 CPAP No 12/11/24 14:33 BIPAP No 12/11/24 14:33 Do you snore loudly (louder No 12/11/24 14:33 than talking or can be heard Do you often feel tired/ No 12/11/24 14:33 fatigued/ sleepy during daytime? Has anyone observed you stop No 12/11/24 14:33 breathing during sleep? STOP Results Negative 12/11/24 14:33 QUESTION #5 FULL TEXT : Do you snore loudly (louder than talking or can be heard through closed doors)? Tobacco Use History Tobacco Use History - protection consultant: Tobacco Use History - protection consultant Tobacco Use Smoking Status Heavy Smoker (>10/day) 12/11/24 14:33 Hx Tobacco Use Yes 12/11/24 14:33 Years Smoking Packs Smoked per Day Smoking Cessation Date was within the last 15 years Hx Smoking Cessation Date 12/11/24 14:33 Hx Smoking Cessation No 12/11/24 14:33 Counseling Hematologic Medial History Hematologic Hx - protection consultant: Hematologic Medical Hx - clinical documentation spec Hx of Blood Transfusion No 12/11/24 14:33 Hx of Transfusion in last 3 No 12/11/24 14:33 Months Date of Last Transfusion (if within last 3 months) Ever experience any problems No 12/11/24 14:33 with transfusion(s)? Specify any problems Hx of Preganancy in last 3 N/A 12/11/24 14:33 Months Nurse Filling Out Transfusion NBUCHER 12/11/24 14:33 Questions: Date: 12/11/24 12/11/24 14:33 Time: 14:34 12/11/24 14:33 Patient unable to answer at this time (ie. confused, unrespo /Reproduction History /Reproductive History - protection consultant: /Reproductive Hx- protection consultant Hx Now Gestational Age (in weeks): EDC: Hx Hx Para Hx Section SAB No 12/11/24 14:33 PFSH Medical History Walker as ambulation aid Uses wheelchair Gastric reflux Arthritis Bipolar disorder Depression Anxiety Migraine headache Dietary restriction History of diverticulitis Chronic cough History of echocardiogram Hypertension Cardiology follow-up encounter COPD (chronic obstructive pulmonary disease) Shortness of breath on exertion Ambulates with cane High cholesterol Smoker History of edema History of CHF (congestive heart failure) Fall Hyperlipidemia Nicotine dependence History of pulmonary embolus (PE) (07/13/20) (HFpEF) heart failure with preserved ejection fraction (07/13/20) Pericardial effusion without cardiac tamponade (07/13/20) Essential (primary) hypertension Anasarca Degeneration of intervertebral disc of lumbosacral region Spondylosis of lumbosacra (more content not included)... Normal [facility] No Panel Informationon 11-26 Culture Urine 10,000 - 50,000 cfu/ ml Multiple bacterial morphotypes present. Probable Contamination. Suggest recollection if clinically indicated. [facility] Work Phone: MR/PAT.Ayesha 10-30-2024 MR/PAT.[facility] Medical Records Department [address] [place] [address] PAT - Anesthesia 10/30/24 1615 MR#: [id number] Acct: [id number] Name: SILVIA ROSADO Rep #: [id number] : 1950 74 From: Giovanni Thakkar MD PCP: FAISAL ORO Status[place] [facility] [place] C [place] [facility] [place] Pre-Assessment Diagnosis/Proposed Procedure Planned Operative Procedure(s): BLOCK,CAUDAL Anesthesia History Anesthesia History - protection consultant: Anesthesia History - protection consultant Hx Hospitalization No 10/30/24 13:17 Any Problems With Anesthesia No 10/30/24 13:17 Cholinesterase deficiency No 10/30/24 13:17 You/Your Family Experience No 10/30/24 13:17 fever (hyperthermia) with Relationship Recent Exposure to Contagious No 09/03/24 09:24 Disease Does patient have nerve No 10/30/24 13:17 stimulator Patient instructed to have device shut off --Does patient have Pacemaker or ICD? When Was Last Pacemaker Check QUESTION #4 FULL TEXT: You/Your Family Experience fever (hyperthermia) with Anesthesia Last Oral Intake Last Oral intake: Last Oral Intake NPO since Meds taken in AM with sips of water? 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 - protection consultant: PONV - protection consultant Female Yes 10/30/24 13:17 HX of Motion Sickness Yes 10/30/24 13:17 HX of N/V After Surgery No 10/30/24 13:17 Non-Smoker No 10/30/24 13:17 Duration of Surgery greater No 10/30/24 13:17 than 60 minutes Number of Risk Factors 2 10/30/24 13:17 PONV Score Moderate Risk 10/30/24 13:17 Height Weight Height Weight: Anesthesia: Height Weight Height 5 ft 3 in 09/12/24 12:38 Respiratory Assessment Respiratory Assessment - protection consultant: Respiratory Tract Infection Hx - protection consultant Hx Respiratory Tract Infection No 10/30/24 13:17 STOP Sleep Apnea STOP Sleep Apnea - protection consultant: STOP Sleep Apnea - protection consultant Hx Hypertension Yes: CONTROLLED WITH MED 10/30/24 13:17 Hx Sleep Apnea No 10/30/24 13:17 CPAP No 10/30/24 13:17 BIPAP No 10/30/24 13:17 Do you snore loudly (louder No 10/30/24 13:17 than talking or can be heard Do you often feel tired/ No 10/30/24 13:17 fatigued/ sleepy during daytime? Has anyone observed you stop No 10/30/24 13:17 breathing during sleep? STOP Results Negative 10/30/24 13:17 QUESTION #5 FULL TEXT : Do you snore loudly (louder than talking or can be heard through closed doors)? Tobacco Use History Tobacco Use History - protection consultant: Tobacco Use History - protection consultant Tobacco Use Smoking Status Heavy Smoker (>10/day) 10/30/24 13:17 Hx Tobacco Use Yes 10/30/24 13:17 Years Smoking Packs Smoked per Day Smoking Cessation Date was within the last 15 years Hx Smoking Cessation Date 08/22/20 10/30/24 13:17 Hx Smoking Cessation No 10/30/24 13:17 Counseling Hematologic Medial History Hematologic Hx - protection consultant: Hematologic Medical Hx - clinical documentation spec Hx of Blood Transfusion No 10/30/24 13:17 Hx of Transfusion in last 3 No 10/30/24 13:17 Months Date of Last Transfusion (if within last 3 months) Ever experience any problems No 10/30/24 13:17 with transfusion(s)? Specify any problems Hx of Preganancy in last 3 No 10/30/24 13:17 Months Nurse Filling Out Transfusion MGLISSETTE 10/30/24 13:17 Questions: Date: 10/30/24 10/30/24 13:17 Time: 13:19 10/30/24 13:17 Patient unable to answer at this time (ie. confused, unrespo /Reproduction History /Reproductive History - protection consultant: /Reproductive Hx- protection consultant Hx Now No 10/30/24 13:17 Gestational Age (in weeks): EDC: Hx Hx Para Hx Section SAB No 10/30/24 13:17 [facility] Medical History (Updated 10/30/24 @ 13:24 by Cherise Nixon) Walker as ambulation aid Uses wheelchair Gastric reflux Arthritis Bipolar disorder Depression Anxiety Migraine headache Dietary restriction History of diverticulitis Chronic cough History of echocardiogram Hypertension Cardiology follow-up encounter COPD (chronic obstructive pulmonary disease) Shortness of breath on exertion Ambulates with cane High cholesterol Smoker History of edema History of CHF (congestive heart failure) Fall Hyperlipidemia Nicotine dependence History of pulmonary embolus (PE) (07/13/20) (HFpEF) heart failure with preserved ejection fraction (07/13/20) Pericardial effusion without cardiac tamponade (07/13/20) Essential (primary) hypertension Anasarca Degeneration of intervertebral disc of lumbosacral region Spondylosis of lumbosacral miquel (more content not included)... Normal [facility] No Panel Informationon 09-26 Culture Urine 50,000 - 100,000 cfu /ml Multiple bacterial morphotypes present. Probable Contamination. Suggest recollection if clinically indicated. [facility] Work Phone: Echo Completeon 09-18-2024 Echo Complete [facility] [place] [address] Echo Complete 09/18/24 1303 MR#: [id number] Acct: [id number] Name: SILVIA ROSADO Rep #: [id number] : 1950 74 From: Eloy Coon MD Attending Dr: Xena Ramírez, SHIPPING/RECEIVING CLERK Status: REG CL I Ordering Dr: Xena Ramírez SHIPPING/RECEIVING CLERK-C Date: 09/18/24 Location: [facility] Sex: F C Admitted: Reason For Study Reason For Study: SOB Procedure This was a 2D Doppler, Color Flow transthoracic echocardiogram. Exam performed in department. Left Ventricle Normal LV size. The left ventricular ejection fraction is 60 %. No regional wall motion abnormalities noted. Right Ventricle Normal RV size. Normal systolic function. Atria Normal left atrium. Normal right atrium. Mitral Valve Normal mitral valve. Mild (1+) eccentric mitral valve insufficiency. Tricuspid Valve Normal tricuspid valve. Mild (1+) tricuspid valve insufficiency. Pulmonary artery systolic pressure is 34 mmHg. Aortic Valve Trisinus/trileaflet aortic valve. Pulmonic Valve Normal pulmonic valve. Great Vessels Normal aortic root. The pulmonary artery is normal size. Inferior vena cava collapse with respiration. Pericardium/Pleural No pericardial effusion. MMode/2D Measurements Calculations LVIDd: 4.9 cm IVSd: 1.1 cm Ao root diam: 3.7 cm LVIDs: 3.7 cm LVPWd: 1.2 cm RVDd: 3.7 cm FS: 24.3 % LAV(MOD-bp): 64.1 ml LVAd ap4: 28.4 cm2 SV(MOD-sp4): 52.9 ml LAV(MOD-bp) Indexed: 29.9 ml/m2 LVLd ap4: 7.8 cm SI(MOD-sp4): 24.7 ml/m2 LAV(MOD-sp2): 65.9 ml EDV(MOD-sp4): 89.2 ml LAV(MOD-sp4): 57.0 ml EDV(sp4-el): 87.2 ml LVAs ap4: 16.2 cm2 LVLs ap4: 6.3 cm ESV(MOD-sp4): 36.3 ml ESV(sp4-el): 35.3 ml EF(MOD-sp4): 59.3 % EF(sp4-el): 59.5 % SV(sp4-el): 51.9 ml LA A4 area: 19.6 cm2 LA dimension(2D): 5.8 cm RA A4 area: 15.9 cm2 TAPSE: 1.8 cm Time Measurements MV dec time: 0.19 sec Doppler Measurements Calculations MV E max kenia: 100.0 cm/sec Lat Peak E' Kenia: 7.3 cm/sec Med Peak E' Kenia: 5.3 cm/sec MV A max kenia: 96.3 cm/sec E/E' lat: 13.7 E/E' med: 19.0 MV E/A: 1.0 MV V2 max: 107.2 cm/sec MV P1/2t max kenia: 104.2 cm/sec Ao V2 max: 141.9 cm/sec MV max P.6 mmHg MV P1/2t: 73.8 msec Ao max P.1 mmHg MV V2 mean: 53.5 cm/sec Ao V2 mean: 96.2 cm/sec MV mean P.4 mmHg MV dec slope: 413.3 cm/sec2 Ao mean P.2 mmHg MV V2 VTI: 48.3 cm MVA(P1/2t): 3.0 cm2 Ao V2 VTI: 36.8 cm AV (velocity ratio): 0.80 LV V1 max: 117.7 cm/sec MR max kenia: 533.7 cm/sec PA V2 max: 105.7 cm/sec LV V1 max P.5 mmHg MR max P.0 mmHg LV V1 mean P.0 mmHg MR mean kenia: 434.5 cm/sec LV V1 mean: 82.1 cm/sec MR mean P.2 mmHg LV V1 VTI: 29.4 cm MR VTI: 208.3 cm TR max kenia: 275.2 cm/sec TR max P.3 mmHg ECHO/Echo Complete Interpretation Summary Normal LV size. The left ventricular ejection fraction is 60 %. Mild (1+) tricuspid valve insufficiency. Pulmonary artery systolic pressure is 34 mmHg. Structurally normal valves. Ordering Physician: Xena Ramírez Referring Physician: Xena Ramírez Performed By: Michael Rios RCS 09/18/24 173 Date Eloy Coon MD CC: JOSE MALONE KAN; Xena Ramírez NP Date Dictated: 09/18/24 1303 Date Transcribed: 09/18/241738 Pickle Cutter: Signed Normal [facility] Echocardiogram study reportO rdered By: Eloy Coon on 09-18-2024 Study report [facility] Cardi[facility] Services [address] [place] [address] Echo Complete 09/18/24 1303 MR#: [id number] Acct: [id number] Name: SILVIA ROSADO Rep #:[id number] : 1950 74 From: Eloy Thurman Attending Dr: LEONOR Green atus: REG CLI Ordering Dr: Xena Ramírez SHIPPING/RECEIVING CLERK-C Jamal e: 09/18/24 Location: [facility] Sex: F C Admitted: Reason For Study Reason For Study: SOB Procedure This was a 2D Doppler, Color Flow transthoracic echocardiogram. Exam performed in department. Left Ventricle Normal LV size. The left ventricular ejection fraction is 60 %. No regional wallmotion abnormalities noted. Right Ventricle Normal RV size. Normal systolic function. Atria Normal left atrium. Normal right atrium. Mitral Valve Normal mitral valve. Mild (1+) eccentric mitral valve insufficiency. Tricuspid Valve Normal tricuspid valve. Mild (1+) tricuspid valve insufficiency. Pulmonary artery systolic pressure is 34 mmHg. Aortic Valve Trisinus/trileaflet aortic valve. Pulmonic Valve Normal pulmonic valve. Great Vessels Normal aortic root. The pulmonary artery is normal size. Inferior vena cava collapse with respiration. Pericardium/Pleural No pericardial effusion. MMode/2D Measurements & Calculations LVIDd: 4.9 cm IVSd: 1.1 cm Ao root diam: 3.7 cm LVIDs: 3.7 cm LVPWd: 1.2 cm RVDd: 3.7 cm FS: 24.3 % LAV(MOD-bp): 64.1 ml LVAd ap4: 28.4 cm2 SV(MOD-sp4): 52.9 ml LAV(MOD-bp) Indexed: 29.9 ml/m2 LVLd ap4: 7.8 cm SI(MOD-sp4): 24.7 ml/m2 LAV(MOD-sp2): 65.9 ml EDV(MOD-sp4): 89.2 ml LAV(MOD-sp4): 57.0 ml EDV(sp4-el): 87.2 ml LVAs ap4: 16.2 cm2 LVLs ap4: 6.3 cm ESV(MOD-sp4): 36.3 ml ESV(sp4-el): 35.3 ml EF(MOD-sp4): 59.3 % EF(sp4-el): 59.5 % SV(sp4-el): 51.9 ml LA A4 area: 19.6 cm2 LA dimension(2D): 5.8 cm RA A4 area: 15.9 cm2 TAPSE: 1.8 cm Time Measurements MV dec time: 0.19 sec Doppler Measurements & Calculations MV E max kenia: 100.0 cm/sec Lat Peak E' Kenia: 7.3 cm/sec Med Peak E' Kenia: 5.3 cm/sec MV A max kenia: 96.3 cm/sec E/E' lat: 13.7 E/E' med: 19.0 MV E/A: 1.0 MV V2 max: 107.2 cm/sec MV P1/2t max kenia: 104.2 cm/sec Ao V2 max: 141.9 cm/sec MV max P.6 mmHg MV P1/2t: 73.8 msec Ao max P.1 mmHg MV V2 mean: 53.5 cm/sec Ao V2 mean: 96.2 cm/sec MV mean P.4 mmHg MV dec slope: 413.3 cm/sec2 Ao mean P.2 mmHg MV V2 VTI: 48.3 cm MVA(P1/2t): 3.0 cm2 Ao V2 VTI: 36.8 cm AV (velocity ratio): 0.80 LV V1 max: 117.7 cm/sec MR max kenia: 533.7 cm/sec PA V2 max: 105.7 cm/sec LV V1 max P.5 mmHg MR max P.0 mmHg LV V1 mean P.0 mmHg MR mean kenia: 434.5 cm/sec LV V1 mean: 82.1 cm/sec MR mean P.2 mmHg LV V1 VTI: 29.4 cm MR VTI: 208.3 cm TR max kenia: 275.2 cm/sec TR max P.3 mmHg ECHO/Echo Complete Interpretation Summary Normal LV size. The left ventricular ejection fraction is 60 %. Mild (1+) tricuspid valve insufficiency. Pulmonary artery systolic pressure is 34 mmHg. Structurally normal valves. Ordering Physician: Xena Ramírez Referring Physician: Xena Ramírez Performed By: Michael Rios RCS 09/18/24 1739 Date _ Eloy Coon MD CC: JOSE OMER; Xena Ramírez NP ~ Date Dictated: 09/18/24 1303 Date Transcribed: 09/18/24 5538 Pickle Cutter: Signed [facility] Work Phone: [phone] Absolute lymphocyte countOrd ered By: Bri Kim on 09-12-2024 Lymphocytes Auto (Unsp spec) [#/Vol] 2.22 10*3/uL 0.83-4.51 [facility] Absolute neutrophil countOrd ered By: Bri Kim on 09-12-2024 Neutrophils (Bld) [#/Vol] 6.5 10*3/uL 2.0-7.7 [facility] Anion gap in Serum or Plasma Ordered By: Bri Kim on 09-12-2024 Anion gap [Moles/Vol] 13 mmol/L 5-15 [facility] Automated lymphocyte count a s percentage of total leukocytesOrdered By: Bri Kim on 09-12-2024 Lymphocytes/100 WBC Auto (Unsp spec) 22.5 % 19-41 [facility] BUN/creatinine ratioOrdered By: Bri Kim on 09-12-2024 Urea nitrogen/Creatinine [Mass ratio] 24.3 mg/mg High 10-20 [facility] Basophil percentageOrdered B y: Bri Kim on 09-12-2024 Basophils/100 WBC (Bld) 0.6 % 0-1 [facility] Bilirubin, totalOrdered By: Bri Kim on 09-12-2024 Bilirubin [Mass/Vol] 0.35 mg/dL 0.00-1.30 [facility] CBC W/Diff, Automatedon 09-02 Absolute Lymph 2.22 X10 3/uL Normal 0.83-4.51 [facility] Comment on above: Order Comment: DR. Mary GIBBS ORDERED LIPID,CMP MIACRE BRI KIM ORDERED LIPID, CMP,CBCD,MG,PROBNP MIACRE Performed By: #### L 500.4100, L502.0250, L503.7505, L501.5200, L500.4050, L100.0100 #### [facility] [address] [place], [address] Absolute Neut 6.5 X10 3/uL Normal 2.0-7.7 [facility] Comment on above: Order Comment: DR. Mary GIBBS ORDERED LIPID,CMP MIACRE BRI KIM ORDERED LIPID, CMP,CBCD,MG,PROBNP MIACRE Performed By: #### L 500.4100, L502.0250, L503.7505, L501.5200, L500.4050, L100.0100 #### [facility] [address] [place], [address] Basophils/100 WBC (Bld) 0.6 % Normal 0-1 [facility] Comment on above: Order Comment: DR. Mary GIBBS ORDERED LIPID,CMP MIACRE BRI KIM ORDERED LIPID, CMP,CBCD,MG,PROBNP MIACRE Performed By: #### L 500.4100, L502.0250, L503.7505, L501.5200, L500.4050, L100.0100 #### [facility] [address] [place], [address] Eosinophils/100 WBC (Bld) 3.6 % Normal 0-5 [facility] Comment on above: Order Comment: DR. Mary GIBBS ORDERED LIPID,CMP MIACRE BRI KIM ORDERED LIPID, CMP,CBCD,MG,PROBNP MIACRE Performed By: #### L 500.4100, L502.0250, L503.7505, L501.5200, L500.4050, L100.0100 #### [facility] [address] [place], [address] Erythrocyte distribution width (RBC) [Ratio] 15.3 % High 11.6-14.6 [facility] Comment on above: Order Comment: DR. Mary GIBBS ORDERED LIPID,CMP MIACRE BRI KIM ORDERED LIPID, CMP,CBCD,MG,PROBNP MIACRE Performed By: #### L 500.4100, L502.0250, L503.7505, L501.5200, L500.4050, L100.0100 #### [facility] [address] [place], [address] Hematocrit (Bld) [Volume fraction] 40.3 % Normal 37-47 [facility] Comment on above: Order Comment: DR. Mary GIBBS ORDERED LIPID,CMP KAROLINE KIM ORDERED LIPID, CMP,CBCD,MG,PROBNP MIACRE Performed By: #### L 500.4100, L502.0250, L503.7505, L501.5200, L500.4050, L100.0100 #### [facility] [address] [place], [address] Hemoglobin (Bld) [Mass/Vol] 13.2 g/dL Normal 12.0-15.0 [facility] Comment on above: Order Comment: DR. Mary GIBBS ORDERED LIPID,CMP KAROLINE KIM ORDERED LIPID, CMP,CBCD,MG,PROBNP MIACRE Performed By: #### L 500.4100, L502.0250, L503.7505, L501.5200, L500.4050, L100.0100 #### [facility] [address] [place], [address] IG% 0.700 Normal 0.0-0.9 [facility] Comment on above: Order Comment: DR. Mary GIBBS ORDERED LIPID,CMP KAROLINE KIM ORDERED LIPID, CMP,CBCD,MG,PROBNP MIACRE Result Comment: IG% - Immature Granulocytes (promyelocytes, myelocytes and metamyelocytes) > 1% indicates that a LEFT SHIFT is Present. Performed By: #### L 500.4100, L502.0250, L503.7505, L501.5200, L500.4050, L100.0100 #### [facility] [address] [place], [address] Lymphocytes/100 WBC (Bld) 22.5 % Normal 19-41 [facility] Comment on above: Order Comment: DR. Mary GIBBS ORDERED LIPID,CMP PAUCRE BRI KIM ORDERED LIPID, CMP,CBCD,MG,PROBNP MIACRE Performed By: #### L 500.4100, L502.0250, L503.7505, L501.5200, L500.4050, L100.0100 #### [facility] [address] [place], [address] MCH (RBC) [Entitic mass] 28.9 pg Normal 27.0-32.0 [facility] Comment on above: Order Comment: DR. Mary GIBBS ORDERED LIPID,CMP MIACRE BRI KIM ORDERED LIPID, CMP,CBCD,MG,PROBNP MIACRE Performed By: #### L 500.4100, L502.0250, L503.7505, L501.5200, L500.4050, L100.0100 #### [facility] [address] [place], [address] MCHC (RBC) [Mass/Vol] 32.8 g/dL Normal 32-36 [facility] Comment on above: Order Comment: DR. Mary GIBBS ORDERED LIPID,CMP PAUCRE BRI KIM ORDERED LIPID, CMP,CBCD,MG,PROBNP MIACRE Performed By: #### L 500.4100, L502.0250, L503.7505, L501.5200, L500.4050, L100.0100 #### [facility] [address] [place], [address] MCV (RBC) [Entitic vol] 88.2 fL Normal 81-[address] [facility] Comment on above: Order Comment: DR. Mary GIBBS ORDERED LIPID,CMP PAUCRE BRI KIM ORDERED LIPID, CMP,CBCD,MG,PROBNP MIACRE Performed By: #### L 500.4100, L502.0250, L503.7505, L501.5200, L500.4050, L100.0100 #### [facility] [address] [place], [address] Monocytes/100 WBC (Bld) 7.0 % Normal 0-10 [facility] Comment on above: Order Comment: DR. Mary GIBBS ORDERED LIPID,CMP MIACRE BRI KIM ORDERED LIPID, CMP,CBCD,MG,PROBNP MIACRE Performed By: #### L 500.4100, L502.0250, L503.7505, L501.5200, L500.4050, L100.0100 #### [facility] [address] [place], [address] Neutrophils/100 WBC (Bld) 65.6 % Normal 47-70 [facility] Comment on above: Order Comment: DR. Mary GIBBS ORDERED LIPID,CMP MIACRE BRI KIM ORDERED LIPID, CMP,CBCD,MG,PROBNP MIACRE Performed By: #### L 500.4100, L502.0250, L503.7505, L501.5200, L500.4050, L100.0100 #### [facility] [address] [facility] [place], [address] Nucleated RBC (Bld) [#/Vol] 0 10*3/uL Normal 0-5 [facility] Comment on above: Order Comment: DR. Mary GIBBS ORDERED LIPID,CMP MIACRE BRI KIM ORDERED LIPID, CMP,CBCD,MG,PROBNP MIACRE Performed By: #### L 500.4100, L502.0250, L503.7505, L501.5200, L500.4050, L100.0100 #### [facility] [address] [facility] [place], [address] Platelet mean volume (Bld) [Entitic vol] 9.7 fL Normal 6.2-12.0 [facility] Comment on above: Order Comment: DR. Mary GIBBS ORDERED LIPID,CMP MIACRE BRI KIM ORDERED LIPID, CMP,CBCD,MG,PROBNP MIACRE Performed By: #### L 500.4100, L502.0250, L503.7505, L501.5200, L500.4050, L100.0100 #### [facility] [address] [place], [address] Platelets (Bld) [#/Vol] 235 10*3/uL Normal 150-450 [facility] Comment on above: Order Comment: DR. Mary GIBBS ORDERED LIPID,CMP MIACRE BRI KIM ORDERED LIPID, CMP,CBCD,MG,PROBNP MIACRE Performed By: #### L 500.4100, L502.0250, L503.7505, L501.5200, L500.4050, L100.0100 #### [facility] [address] [place], [address] RBC (Bld) [#/Vol] 4.57 10*6/uL Normal 4.2-5.4 [facility] Comment on above: Order Comment: DR. Mary GIBBS ORDERED LIPID,CMP MIACRE BRI KIM ORDERED LIPID, CMP,CBCD,MG,PROBNP MIACRE Performed By: #### L 500.4100, L502.0250, L503.7505, L501.5200, L500.4050, L100.0100 #### [facility] [address] [place], [address] RDW SD 49.0 fl High 35.1-43.9 [facility] Comment on above: Order Comment: DR. Mary GIBBS ORDERED LIPID,CMP MIACRE BRI KIM ORDERED LIPID, CMP,CBCD,MG,PROBNP MIACRE Performed By: #### L 500.4100, L502.0250, L503.7505, L501.5200, L500.4050, L100.0100 #### [facility] [address] [place], [address] WBC (Bld) [#/Vol] 9.9 10*3/uL Normal 4.4-11.0 [facility] Comment on above: Order Comment: DR. Mary GIBBS ORDERED LIPID,CMP MIACRE BRI KIM ORDERED LIPID, CMP,CBCD,MG,PROBNP MIACRE Performed By: #### L 500.4100, L502.0250, L503.7505, L501.5200, L500.4050, L100.0100 #### [facility] [address] [place], [address] Calculated very low density lipoprotein (VLDL) cholesterol measurementOrdered By: Bri Kim on 09-12-2024 Calculated very low density lipoprotein (VLDL) cholesterol measurement 50 mg/dL High 5-40 [facility] Carbon dioxide, total [Moles /volume] in Central venous bloodOrdered By: Bri Kim on 09-12-2024 CO2 [Moles/Vol] 26.0 mmol/L 21.0-32.0 [facility] Cardiology Visit Reporton Cardiology Visit Report [facility] [address] [place] [address] OFFICE VISIT Date of Service: 09/12/24 MR#: [id number] Acct: [id number] Name: ALONZOSILVIA REMY Rep #: [id number] : 1950 Provider: FAISAL avila Age/Sex: 74/F Location: [facility] Status: Signed HPI HPI History of Present Illness Details: 74-year-old lady who presented to [facility] in July 2020 with shortness of breath. She was noted to have right-sided pulmonary embolism and had a mildly elevated natriuretic peptide level of 231. Her echocardiogram demonstrated an ejection fraction of 60% with normal right ventricular and atrial size pulmonary systolic pressure of 36 mmHg and a small pericardial effusion. She was treated with diuretics, potassium replacement, and anticoagulation. She was evaluated by hematology/oncology and has discontinued anticoagulation therapy. She denies chest, arm, jaw, or neck discomfort. She denies palpitations. She continues with bilateral lower extremity edema. She denies claudication. She states shortness of breath with a ctivity that she does not feel to be worse. This is noted when walking long distances. She denies shortness of breath at rest, orthopnea, or PND. She denies chronic cough. She denies significant, sudden weight gain. She denies lightheadedness, dizziness, near-syncope, or syncope. She denies blood in urine, blood in stool, or epistaxis. He denies fever or chills. She denies myalgia. She denies fatigue. Her exercise level has remained stable though less compared to previous due to back discomfort. She is seeing a urologist to assist with frequent urination and thus has stopped her Lasix. 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 Is patient in pain?: No Allergies hydrocodone Adverse Reaction (Verified 09/12/24 13:05) NEEDS FOLLOW-UP oxycodone Adverse Reaction (Verified 09/12/24 13:05) NEEDS FOLLOW-UP [id number] Reductase Inhibitor Adverse Reaction (Verified 09/12/24 13:05) Constipation Medications ???Medication ???Instructions ???Recorded ???Confirmed ???Type docusate sodium 100 mg capsule 100 mg PO BID 12/14/17 09/12/24 Hi story (DOK) escitalopram oxalate 10 mg tablet 10 mg PO QHS 12/14/17 09/12/24 Hi story lisinopril 5 mg tablet 5 mg PO LUNCH #30 tabs 08/12/20 Rx buspirone 10 mg tablet 20 mg PO TID Anxiety 08/22/2009/02 History atenolol 50 mg tablet 50 mg PO BID 09/11/20 09/12/24 His tory gabapentin 800 mg tablet 800 mg PO TID 10/28/21 09/12/24 Hi story multivitamin with folic acid 400 1 tab PO DAILY 05/31/22 09/12/24 H istory mcg tablet (Daily-Dmitri (with folic acid)) sumatriptan succinate 100 mg tablet 100 mg PO Q2H PRN migraines 09/12/24 History furosemide 40 mg tablet 40 mg PO DAILY 08/08/23 09/12/24 H istory bisacodyl 5 mg tablet,delayed 5 mg PO DAILY 11/25/23 09/12/24 Hi story release buprenorphine 10 mcg/hour weekly 1 patch transdermal Q7D 11/25/23 0 09/12/24 History transdermal patch metformin 500 mg tablet 1,000 mg PO BIDCM 11/25/23 5 History quetiapine 200 mg tablet 200 mg PO QHS 11/25/23 09/12/24 Hi story quetiapine 400 mg tablet (Seroquel) 400 mg PO QHS 11/25/23 09/12/24 History albuterol sulfate 90 mcg/actuation 2 puff inhalation Q6H PRN 09/12/24 Rx aerosol inhaler shortness of breath or wheezing #8.5 grams pantoprazole 20 mg tablet,delayed 20 mg PO Q12H 3 months #180 tabs 04/26/24 09/12/24 Rx release lactulose 10 gram/15 mL oral 15 - 30 ml PO DAILY PRN 05/17/24 0 09/12/24 History solution constipation alendronate 70 mg tablet 70 mg PO QWEEK 09/12/24 09/12/24 H istory calcium 500 mg (as 1 tab PO BID 09/12/24 09/12/24 His tory carbonate)-vitamin D3 5 mcg (200 unit) tablet (Oyster Shell Calcium-Vitamin D3) cetirizine 10 mg tablet mg PO 09/12/24 09/12/24 History ezetimibe 10 mg tablet 10 mg PO QDAY 09/12/24 09/12/24 Hi story hydroxyzine HCl 10 mg tablet 10 mg PO 4X/DAY 09/12/24 09/12/24 History mometasone-formoterol HFA 200 2 puff inhalation BID 09/12/2402/26 History mcg-5 mcg/actuation aerosol inhaler (Dulera) tiotropium bromide 2.5 2 puff inhalation QDAY 09/12/24 History mcg/actuation mist for inhalation (Spiriva Respimat) tizanidine 4 mg tablet 4 mg PO BID 09/12/24 09/12/24 Hist ory Ejection fraction %: 60 Have you fallen in the past year?: [facility] Arthri (more content not included)... Normal [facility] Chloride assayOrdered By: Mirna Kim on 09-12-2024 Chloride [Moles/Vol] 97 mmol/L Low 98-108 [facility] Comprehensive Metabolic Prof ilon 09-12-2024 Chloride [Moles/Vol] 97 mmol/L Low 98-108 [facility] Comment on above: Order Comment: DR. Mary GIBBS ORDERED LIPID,CMP MIACRE BRI KIM ORDERED LIPID, CMP,CBCD,MG,PROBNP MIACRE Performed By: #### L 500.4100, L502.0250, L503.7505, L501.5200, L500.4050, L100.0100 #### [facility] [address] [place], [address] CO2 [Moles/Vol] 26.0 mmol/L Normal 21.0-32.0 [facility] Comment on above: Order Comment: DR. Mary GIBBS ORDERED LIPID,CMP PAUCRE BRI KIM ORDERED LIPID, CMP,CBCD,MG,PROBNP MIACRE Performed By: #### L 500.4100, L502.0250, L503.7505, L501.5200, L500.4050, L100.0100 #### [facility] [address] [place], [address] GAP 13 Normal 5-15 [facility] Comment on above: Order Comment: DR. Mary GIBBS ORDERED LIPID,CMP MIACRE BRI KIM ORDERED LIPID, CMP,CBCD,MG,PROBNP MIACRE Performed By: #### L 500.4100, L502.0250, L503.7505, L501.5200, L500.4050, L100.0100 #### [facility] [address] [place], [address] Potassium [Moles/Vol] 4.5 mmol/L Normal 3.3-5.1 [facility] Comment on above: Order Comment: DR. Mary GIBBS ORDERED LIPID,CMP PAUCRE BRI KIM ORDERED LIPID, CMP,CBCD,MG,PROBNP MIACRE Performed By: #### L 500.4100, L502.0250, L503.7505, L501.5200, L500.4050, L100.0100 #### [facility] [address] [place], [address] Sodium [Moles/Vol] 136 mmol/L Normal 133-145 [facility] Comment on above: Order Comment: DR. Mary GIBBS ORDERED LIPID,CMP KAROLINE KIM ORDERED LIPID, CMP,CBCD,MG,PROBNP MIACRE Performed By: #### L 500.4100, L502.0250, L503.7505, L501.5200, L500.4050, L100.0100 #### [facility] [address] [place], [address] Albumin [Mass/Vol] 4.1 g/dL Normal 3.4-4.8 [facility] Comment on above: Order Comment: DR. Mary GIBBS ORDERED LIPID,CMP PAUCRE BRI KIM ORDERED LIPID, CMP,CBCD,MG,PROBNP MIACRE Performed By: #### L 500.4100, L502.0250, L503.7505, L501.5200, L500.4050, L100.0100 #### [facility] [address] [place], [address] Albumin/Globulin [Mass ratio] 1.6 {ratio} Normal 0.9-2.4 [facility] Comment on above: Order Comment: DR. Mary GIBBS ORDERED LIPID,CMP PAUCRE BRI KIM ORDERED LIPID, CMP,CBCD,MG,PROBNP MIACRE Performed By: #### L 500.4100, L502.0250, L503.7505, L501.5200, L500.4050, L100.0100 #### [facility] [address] [place], [address] ALK PHOS 108 U/L High 35-104 [facility] Comment on above: Order Comment: DR. Mary GIBBS ORDERED LIPID,CMP PAUCRE BRI KIM ORDERED LIPID, CMP,CBCD,MG,PROBNP MIACRE Performed By: #### L 500.4100, L502.0250, L503.7505, L501.5200, L500.4050, L100.0100 #### [facility] [address] [place], [address] ALT [Catalytic activity/Vol] 11 U/L Normal <=34 [facility] Comment on above: Order Comment: DR. Mary GIBBS ORDERED LIPID,CMP MIACRE BRI KIM ORDERED LIPID, CMP,CBCD,MG,PROBNP MIACRE Performed By: #### L 500.4100, L502.0250, L503.7505, L501.5200, L500.4050, L100.0100 #### [facility] [address] [facility] [place], [address] AST [Catalytic activity/Vol] 13 U/L Normal <=31 [facility] Comment on above: Order Comment: DR. Mary GIBBS ORDERED LIPID,CMP MIACRE BRI KIM ORDERED LIPID, CMP,CBCD,MG,PROBNP MIACRE Performed By: #### L 500.4100, L502.0250, L503.7505, L501.5200, L500.4050, L100.0100 #### [facility] [address] [place], [address] Bilirubin [Mass/Vol] 0.35 mg/dL Normal 0.00-1.30 [facility] Comment on above: Order Comment: DR. Mary GIBBS ORDERED LIPID,CMP MIACRE BRI KIM ORDERED LIPID, CMP,CBCD,MG,PROBNP MIACRE Performed By: #### L 500.4100, L502.0250, L503.7505, L501.5200, L500.4050, L100.0100 #### [facility] [address] [facility] [place], [place], [id number] (562) BUN/CRE 24.3 RATIO High 10-20 [facility] Comment on above: Order Comment: DR. Mary GIBBS ORDERED LIPID,CMP MIACRE BRI KIM ORDERED LIPID, CMP,CBCD,MG,PROBNP MIACRE Performed By: #### L 500.4100, L502.0250, L503.7505, L501.5200, L500.4050, L100.0100 #### [facility] [address] [place], [address] Calcium [Mass/Vol] 9.3 mg/dL Normal 7.6-11.0 [facility] Comment on above: Order Comment: DR. Mary GIBBS ORDERED LIPID,CMP PAUCRE BRI KIM ORDERED LIPID, CMP,CBCD,MG,PROBNP MIACRE Performed By: #### L 500.4100, L502.0250, L503.7505, L501.5200, L500.4050, L100.0100 #### [facility] [address] [facility] [place], [address] Creatinine [Mass/Vol] 0.94 mg/dL Normal 0.70-1.20 [facility] Comment on above: Order Comment: DR. Mary GIBBS ORDERED LIPID,CMP KAROLINE BRI KIM ORDERED LIPID, CMP,CBCD,MG,PROBNP MIACRE Performed By: #### L 500.4100, L502.0250, L503.7505, L501.5200, L500.4050, L100.0100 #### [facility] [address] [facility] [place], [address] GFR/1.73 sq M.predicted among non-blacks MDRD (S/P/Bld) [Vol rate/Area] 63 mL/min/{1.73_m2} Normal >60 [facility] Comment on above: Order Comment: DR. Mayr GIBBS ORDERED LIPID,CMP KAROLINE BRI JULIO ORDERED LIPID, CMP,CBCD,MG,PROBNP MIACRE Result Comment: mL/m in/1.73m2 CKD-EPI Creatinine Equation (2020) Performed By: #### L 500.4100, L502.0250, L503.7505, L501.5200, L500.4050, L100.0100 #### [facility] [address] [place], [address] Globulin (S) [Mass/Vol] 2.6 g/dL Normal 2.2-4.2 [facility] Comment on above: Order Comment: DR. Mary GIBBS ORDERED LIPID,CMP MIACRE BRI KIM ORDERED LIPID, CMP,CBCD,MG,PROBNP MIACRE Performed By: #### L 500.4100, L502.0250, L503.7505, L501.5200, L500.4050, L100.0100 #### [facility] [address] [place], [address] Glucose [Mass/Vol] 95 mg/dL Normal 70-99 [facility] Comment on above: Order Comment: DR. Mary GIBBS ORDERED LIPID,CMP MIACRE BRI KIM ORDERED LIPID, CMP,CBCD,MG,PROBNP MIACRE Performed By: #### L 500.4100, L502.0250, L503.7505, L501.5200, L500.4050, L100.0100 #### [facility] [address] [place], [address] T PROT 6.6 g/dL Normal 5.9-8.4 [facility] Comment on above: Order Comment: DR. Mary GIBBS ORDERED LIPID,CMP MIACRE BRI KIM ORDERED LIPID, CMP,CBCD,MG,PROBNP MIACRE Performed By: #### L 500.4100, L502.0250, L503.7505, L501.5200, L500.4050, L100.0100 #### [facility] [address] [place], [address] Urea nitrogen [Mass/Vol] 23 mg/dL High 4-19 [facility] Comment on above: Order Comment: DR. Mary GIBBS ORDERED LIPID,CMP MIACRE BRI KIM ORDERED LIPID, CMP,CBCD,MG,PROBNP MIACRE Performed By: #### L 500.4100, L502.0250, L503.7505, L501.5200, L500.4050, L100.0100 #### [facility] [place], [address] Eosinophil percentageOrdered By: Bri Kim on 09-12-2024 Eosinophils/100 WBC (Bld) 3.6 % 0-5 [facility] Erythrocyte distribution wid th ratioOrdered By: Bri Kim on 09-12-2024 Erythrocyte distribution width (RBC) [Ratio] 15.3 % High 11.6-14.6 [facility] Erythrocyte distribution wid th standard deviationOrdered By: Bri Kim on 09-12-2024 Erythrocyte distribution width (RBC) [Ratio] 49.0 fl High 35.1-43.9 [facility] Glomerular filtration rate ( GFR) estimation/1.73 sq m using serum, plasma, or whole bOrdered By: Bri Kim on 09-12-2024 GFR/1.73 sq M.predicted among non-blacks MDRD (S/P/Bld) [Vol rate/Area] 63 mL/min/{1.73_m2} >60 [facility] Comment on above: mL/min/1.73m2 CKD-EP I Creatinine Equation (2020) Hematocrit Auto (Bld) [Volum e fraction]Ordered By: Bri Kim on 09-12-2024 Hematocrit (Bld) [Volume fraction] 40.3 % 37-47 [facility] Hemoglobin measurementOrdere d By: Bri Kim on 09-12-2024 Hemoglobin (Bld) [Mass/Vol] 13.2 g/dL 12.0-15.0 [facility] Immature granulocytes/100 WB C Auto (Bld)Ordered By: Bri Kim on 09-12-2024 Immature granulocytes/100 WBC (Bld) 0.700 % 0.0-0.9 [facility] Comment on above: IG% - Immature Granu locytes (promyelocytes, myelocytes and metamyelocytes) > 1% indicates that a LEFT SHIFT is Present. L503.7505on 09-12-2024 Natriuretic peptide B (Bld) [Mass/Vol] 265 pg/mL Normal <=1800 [facility] Comment on above: Order Comment: DR. Mary GIBBS ORDERED LIPID,CMP IAM KIM ORDERED LIPID, CMP,CBCD,MG,PROBNP MIACRE Result Comment: Hear t Failure Unlikely: < 300 pg/mL Heart Failure Likely < 50 Years: > 450 pg/mL 50-75 Years: > 900 pg/mL >75 Years: > 1800 pg/mL Performed By: #### L 500.4100, L502.0250, L503.7505, L501.5200, L500.4050, L100.0100 ####[facility] [address] [place], [place], [id number] LDL calc ser/plasOrdered By: Bri Kim on 09-12-2024 Cholesterol in LDL [Mass/Vol] 141 mg/dL [facility] Comment on above: Fezkoigfby=590-846 m g/dL & Higher Rxkv=929 mg/dL or greater Laboratory - Chemistry and C hemistry - challengeOrdered By: Bri Kim on 09-12-2024 AST [Catalytic activity/Vol] 13 U/L <32 [facility] Lipid Profileon 09-12-2024 CHOL:HDL 6.51 Normal [facility] Comment on above: Order Comment: DR. Mary GIBBS ORDERED LIPID,CMP MIACREBRI KIM ORDERED LIPID, CMP,CBCD,MG,PROBNP MIACRE Performed By: #### L 500.4100, L502.0250, L503.7505, L501.5200, L500.4050, L100.0100 ####[facility] [address] [place], [address] Cholesterol in HDL [Mass/Vol] 35 mg/dL Low [facility] Comment on above: Order Comment: DR. Mary GIBBS ORDERED LIPID,CMP MIACREBRI KIM ORDERED LIPID, CMP,CBCD,MG,PROBNP MIACRE Result Comment: Jeanie onal Cholesterol Education Program (NCEP) guidelines: <40 mg/dL: Low HDL-cholesterol (major risk factor for CHD) >= 60 mg/dL: High HDL-cholesterol (negative risk factor for CHD) HDL-cholesterol is affected by a number of factors, e.g. smoking, exercise, hormones, sex and age. Performed By: #### L 500.4100, L502.0250, L503.7505, L501.5200, L500.4050, L100.0100 ####[facility] [address] [place], [address] Cholesterol in LDL [Mass/Vol] 141 mg/dL Normal [facility] Comment on above: Order Comment: DR. Mary GIBBS ORDERED LIPID,CMP IAM KIM ORDERED LIPID, CMP,CBCD,MG,PROBNP MIACRE Result Comment: Bord ekroor=187-673 mg/dL Higher Htii=309 mg/dL or greater Performed By: #### L 500.4100, L502.0250, L503.7505, L501.5200, L500.4050, L100.0100 ####[facility] [address] [place], [address] Cholesterol in VLDL [Mass/Vol] 50 mg/dL High 5-40 [facility] Comment on above: Order Comment: DR. Mary GIBBS ORDERED LIPID,CMP IAM KIM ORDERED LIPID, CMP,CBCD,MG,PROBNP MIACRE Performed By: #### L 500.4100, L502.0250, L503.7505, L501.5200, L500.4050, L100.0100 ####[facility] [address] [place], [address] Cholesterol [Mass/Vol] 226 mg/dL High <=200 [facility] Comment on above: Order Comment: DR. Mary GIBBS ORDERED LIPID,CMP IAM KIM ORDERED LIPID, CMP,CBCD,MG,PROBNP MIACRE Result Comment: Chol esterol level, Desirable <200 mg/dL Borderline high cholesterol 200-239 mg/dL High cholesterol >=240 mg/dL Recommendations of the NCEP Adult Treatment Panel for the following risk-cutoff thresholds for the [place] population. Performed By: #### L 500.4100, L502.0250, L503.7505, L501.5200, L500.4050, L100.0100 ####[facility] [address] [place], [address] Triglyceride [Mass/Vol] 252 mg/dL High [facility] Comment on above: Order Comment: DR. Mary GIBBS ORDERED LIPID,CMP IAM KIM ORDERED LIPID, CMP,CBCD,MG,PROBNP MIACRE Result Comment: The drugs N-Acetylcysteine and Metamizole may falsely depress this assay. Normal range: <150 mg/dL Borderline High: 150-199 mg/dL High: 200-499 mg/dL Very High: >500 mg/dL Performed By: #### L 500.4100, L502.0250, L503.7505, L501.5200, L500.4050, L100.0100 ####[facility] [address] [place], [place], [id number] MCV (mean corpuscular volume ) determinationOrdered By: Bri Kim on 09-12-2024 MCV (RBC) [Entitic vol] 88.2 fL 81-[address] [facility] Magnesiumon 09-12-2024 Magnesium [Mass/Vol] 2.1 mg/dL Normal 1.5-2.2 [facility] Comment on above: Order Comment: DR. Mary GIBBS ORDERED LIPID,CMP IAM KIM ORDERED LIPID, CMP,CBCD,MG,PROBNP MIACRE Performed By: #### L 500.4100, L502.0250, L503.7505, L501.5200, L500.4050, L100.0100 ####[facility] [address] [place], [place], [id number] Magnesium measurement (mass/ volume)Ordered By: Bri Kim on 09-12-2024 Magnesium (Unsp spec) [Mass/Vol] 2.1 mg/dL 1.5-2.2 [facility] Mean corpuscular hemoglobin (MCH) determinationOrdered By: Bri Kim on 09-12-2024 MCH (RBC) [Entitic mass] 28.9 pg 27.0-32.0 [facility] Mean corpuscular hemoglobin concentration (MCHC) determinationOrdered By: Bri Kim on 06-11-2025 MCHC (RBC) [Mass/Vol] 32.8 g/dL 32-36 [facility] Mean platelet volume determi nationOrdered By: Bri Kim on 09-12-2024 Platelet mean volume (Bld) [Entitic vol] 9.7 fL 6.2-12.0 [facility] Microalb:Creat Ratio,Random URon 09-12-2024 MALB:CREAT UNABLE TO CALCULATE Normal [facility] Comment on above: Order Comment: DR. Mary GIBBS ORDERED LIPID,CMP MIACRE BRI KIM ORDERED LIPID, CMP,CBCD,MG,PROBNP MIACRE Performed By: #### L 500.4100, L502.0250, L503.7505, L501.5200, L500.4050, L100.0100 #### [facility] [address] [place], [address] MICROALBUMIN,UR < 12.0 Normal NO RANGE EST. [facility] Comment on above: Order Comment: DR. Mary GIBBS ORDERED LIPID,CMP MIACRE BRI KIM ORDERED LIPID, CMP,CBCD,MG,PROBNP MIACRE Performed By: #### L 500.4100, L502.0250, L503.7505, L501.5200, L500.4050, L100.0100 #### [facility] [address] [place], [address] Microalbumin/creat ratio urO rdered By: Bri Kim on 09-12-2024 Urine microalbumin/creatinine ratio measurement UNABLE TO CALCULATE mg/g CRE [facility] Monocyte percentageOrdered B y: Bri Kim on 09-12-2024 Monocytes/100 WBC (Bld) 7.0 % 0-10 [facility] Natriuretic peptide.B prohor jose antonio N-Terminal [Mass/volume] in Serum or PlasmaOrdered By: Bri Kim on 09-12-2024 Natriuretic peptide.B prohormone N-Terminal [Mass/Vol] 265 pg/mL <1800 [facility] Comment on above: Heart Failure Unlike ly: < 300 pg/mLHeart Failure Likely< 50 Years: > 450 pg/mL50-75 Years: > 900 pg/mL>75 Years: > 1800 pg/mL Neutrophil percentageOrdered By: Bri Kim on 09-12-2024 Neutrophils/100 WBC (Bld) 65.6 % 47-70 [facility] Nucleated red blood cell per centageOrdered By: Bri Kim on 09-12-2024 Nucleated RBC/100 WBC (Bld) [Ratio] 0 % 0-5 [facility] Platelet countOrdered By: Mirna Kim on 09-12-2024 Platelets (Bld) [#/Vol] 235 10*3/uL 150-450 [facility] Potassium measurement (mass/ volume)Ordered By: Bri Kim on 09-12-2024 Potassium (Unsp spec) [Mass/Vol] 4.5 mmol/L 3.3-5.1 [facility] RBC Auto (Bld) [#/Vol]Ordere d By: Bri Kim on 09-12-2024 RBC (Bld) [#/Vol] 4.57 10*6/uL 4.2-5.4 [facility] Random urine creatinine ren urement (mass/volume)Ordered By: Bri Kim on 09-12-2024 Creatinine Unsp time (U) [Mass/Vol] 110.00 mg/dL 28.00-217.0 0 [facility] Screening total cholesterol/ high density lipoprotein (HDL) cholesterol ratioOrdered By: Bri Kim on 09-12-2024 Cholesterol.total/Elina sterol in HDL [Mass ratio] 6.51 {ratio} [facility] Serum creatinine measurement (mass/volume)Ordered By: Bri Kim on 09-12-2024 Creatinine [Mass/Vol] 0.94 mg/dL 0.70-1.20 [facility] Serum globulin measurementOr dered By: Bri Kim on 09-12-2024 Globulin (S) [Mass/Vol] 2.6 g/dL 2.2-4.2 [facility] Serum glucose measurement (m ass/volume)Ordered By: Bri Kim on 09-12-2024 Glucose [Mass/Vol] 95 mg/dL 70-99 [facility] Serum or plasma alanine bradley otransferase (ALT) measurementOrdered By: Bri Kim on 09-12-2024 ALT [Catalytic activity/Vol] 11 U/L <35 [facility] Serum or plasma albumin ren urement (mass/volume)Ordered By: Bri Kim on 09-12-2024 Albumin [Mass/Vol] 4.1 g/dL 3.4-4.8 [facility] Serum or plasma albumin/glob ulin mass ratioOrdered By: Bri Kim on 09-12-2024 Albumin/Globulin [Mass ratio] 1.6 {ratio} 0.9-2.4 [facility] Serum or plasma alkaline vilma sphatase measurementOrdered By: Bri Kim on 09-12-2024 ALP [Catalytic activity/Vol] 108 U/L High 35-104 [facility] Serum or plasma calcium ren urement (mass/volume)Ordered By: Bri Kim on 09-12-2024 Calcium [Mass/Vol] 9.3 mg/dL 7.6-11.0 [facility] Serum or plasma cholesterol in HDL measurement (mass/volume)Ordered By: Bri Kim on 09-12-2024 Cholesterol in HDL [Mass/Vol] 35 mg/dL Low >40 [facility] Comment on above: National Cholesterol Education Program (NCEP) guidelines:<40 mg/dL: Low HDL-cholesterol (major risk factor for CHD)>= 60 mg/dL: High HDL-cholesterol (negative risk factor for CHD)HDL-cholesterol is affected by a number of factors, e.g. smoking, exercise, hormones, sex and age. Serum or plasma cholesterol measurement (mass/volume)Ordered By: Bri Kim on 09-12-2024 Cholesterol [Mass/Vol] 226 mg/dL High <201 [facility] Comment on above: Cholesterol level, D esirable <200 mg/dLBorderline high cholesterol 200-239 mg/dLHigh cholesterol >=240 mg/dLRecommendations of the NCEP Adult Treatment Panel for the following risk-cutoff thresholds for the [place] population. Serum or plasma urea nitroge n measurement (mass/volume)Ordered By: Bri Kim on 09-12-2024 Urea nitrogen [Mass/Vol] 23 mg/dL High 4-19 [facility] Sodium levelOrdered By: Bri Kim on 09-12-2024 Sodium [Moles/Vol] 136 mmol/L 133-145 [facility] Total proteinOrdered By: Pedro Kim on 09-12-2024 Protein [Mass/Vol] 6.6 g/dL 5.9-8.4 [facility] Triglycerides measurementOrd ered By: Bri Kim on 09-12-2024 Triglyceride [Mass/Vol] 252 mg/dL High <199 [facility] Comment on above: The drugs N-Acetylcy steine and Metamizole may falsely depress this assay. Normal range: <150 mg/dLBorderline High: 150-199 mg/dLHigh: 200-499 mg/dLVery High: >500 mg/dL Urine albumin measurement [facility] detection limit of 20 mg/L or less (mass/volume)Ordered By: Bri Kim on 09-12-2024 Albumin DL <= 20 mg/L (U) [Mass/Vol] < 12.0 mg/L NO RANGE EST. [facility] White blood cell (WBC) count Ordered By: Bri Kim on 09-12-2024 WBC (Bld) [#/Vol] 9.9 10*3/uL 4.4-11.0 [facility] Bedside Glucoseon 09-03-2024 FINGERSTICK GLU 138 mg/dL High 74-106 [facility] Comment on above: Result Comment: SCARLET SAUNDERS OF PATIENT CARE PER NURSING PROTOCOL Performed By: #### L 501.080 ####[facility] [id number] [facility]. [place], [place], [address] Cerv Spine 4 or 5 Viewson Cerv Spine 4 or 5 Views [facility] Imaging Services [address], [place] [address] Cerv Spine 4 or 5 Views MR#: [id number] Acct: [id number] Name: SILVIA ROSADO Rep #: [id number] : 1950 F 74 From: Eliecer Collier MD PCP: Dr. Bernie Jovel, DO Status: DEP [facility] [place]: Cerv Spine 4 or 5 Views Date of Exam: 09/03/24 Exam# [id number] Ordering Dr: Brandon Cuellar MD PROCEDURE: CERV SPINE 4 OR 5 VIEWS 09/03/2024 REASON FOR EXAM: CERVICAL MEDIAL BRACNCH BLOCK TECHNIQUE: Single fluoroscopic view of the cervical spine was performed. COMPARISON: 06/15/2023. FINDINGS: Single fluoroscopic view of the cervical spine. 15.8 seconds. 3.70 mGy. RAD/Cerv Spine 4 or 5 Views IMPRESSION: As above. Reading Location: [id number] CC: Dr. Brandon Cuellar MD; Dr. Bernie Jovel DO Pickle Cutter: Signed [facility] Glucose measurement at [facility] deOrdered By: Brandon Cuellar on 09-03-2024 Glucose [Mass/Vol] 138 mg/dL High 74-106 [facility] Comment on above: MANAGEMENT OF PATIEN T CARE PER NURSING PROTOCOL MR/POSTOP.ANEon 09-03-2024 MR/POSTOP.[facility] Medical Records Department [address] [place] [address] Anesthesia Postop Eval I 09/03/24 1021 MR#: [id number] Acct: [id number] Name: ROSADOSILVIA JONEL Rep #: [id number] : 1950 74 From: Grayson Ohara PCP: Dr. Bernie Jovel DO Status:REG SDC Y Race: C Location: [place] [address] Anesthesia: Postop Eval I Current Vital Signs Temperature: 97.6 F Pulse Rate: 60 Blood Pressure: 120/65 Respiratory Rate: 16 Pulse Ox: 97 Oxygen Delivery Method: Room Air Assessment Airway patent: Yes Spontaneous unlabored respirations: Yes Mental status: Awake and Calm nausea: No Vomiting: No Anesthesia Complication: No Fluid Hydration Crystalloid volume administer (ml): 200 Total IV fluid infused: 200 Progress Note Anesthesia document: Postop Eval 1 completed: Yes 09/03/24 1022 Date Grayson Harris Signature: Date CC: Signed [facility] MR/[id number] 09-03-2024 MR/POSTOPAN2 [facility] Medical Records Department [address] [place] [address] Anesthesia Postop Eval II 09/03/24 1039 MR#: [id number] Acct: [id number] Name: SILVIA ROSADO Rep #: [id number] : 1950 74 From: Yovanny Gardner MD PCP: Dr. Bernie Jovel, DO Status:REG SDC Y Race: C Location: [facility]11-1 Anesthesia Postop Eval I Sum Postop Eval Completion status Anesthesia document: Postop Eval 1 completed: Yes Anesthesia Postop Eval I Summary Anesthesia Postop Eval I Summary: Anesthesia Postop Eval I: Assessment Summary Airway patent Yes 09/03/24 10:22 [email or web address] Spontaneous unlabored Yes 09/03/24 10:22 [email or web address] respirations Mental status Awake,Calm 09/03/24 10:22 [email or web address] nausea No 09/03/24 10:22 [email or web address] Vomiting No 09/03/24 10:22 [email or web address] Anesthesia Postop Eval I: Fluid Summary Crystalloid volume administer 200 09/03/24 10:22 [email or web address] (ml) Colloids volume administered ( ml) Blood Product volume administered (ml) Total IV fluid infused 200 09/03/24 10:22 [email or web address] Anesthesia Postop Eval I: Summary Notes Anesthesia Complication No 09/03/24 10:22 [email or web address] Anesthesia Complication Comment: Post-operative progress note Anesthesia: Postop Eval II Evaluation Mental status: Awake Pain Level: 0 nausea: No Vomiting: No Complications Anesthesia Complication: No 09/03/24 1039 Date Yovanny Gardner MD Cosigner Signature: Date CC: Signed [facility] Operative Reporton 06-02-202 5 Operative Report [facility] Medical Records Department [address] [place] [address] Operative Report 09/03/24 1009 MR#: [id number] Acct: [id number] Name: SILVIA ROSADO Rep #: [id number] : 1950 74 From: Brandon Cuellar MD PCP: Dr. Bernie Jovel, DO Status:REG [facility] [place]: [place] [address] Operative Report (Standard) Operative Information Date of Procedure: 09/03/24 Pre-Operative Diagnosis: 0 Post-Operative Diagnosis: 0 Surgery/Procedure Performed: 0 slitting machine operator helper: No Type of Anesthesia: Local MAC RN Documented Start/Stop Times: Operation Date: 09/03/24 10:25 Case Time Into Pre-Op 09/03/24 08:43 Anesthesia Start 09/03/24 09:59 Into Room 09/03/24 09:59 Procedure Start 09/03/24 10:04 Procedure End 09/03/24 10:08 Procedure Start Time: 10:09 Procedure Stop Time: 10:09 Select all DRAINS/GRAFTS/IMPLANTS that apply: None Estimated Blood Loss: 0 Specimen collected: No Description of surgery: PREOPERATIVE DIAGNOSIS: Cervical spondylosis, cervical degenerative disc disease, cervical facet arthropathy POSTOPERATIVE DIAGNOSIS:Cervical spondylosis, cervical degenerative disc disease, cervical facet arthropathy PROCEDURE PERFORMED: Right sided cervical medial branch block at C3, C4, C5, and C6. ANESTHESIA: MAC. BLOOD LOSS: Minimal. COMPLICATIONS: None. DESCRIPTION OF PROCEDURE: History and physical of today was reviewed. Risks and benefits of the procedure were explained. The patient understood and agreed to proceed. Informed consent was obtained. IV inserted per routine protocol. The patient was taken to the operating room and placed in the prone position with a pillow positioned underneath the chest. The neck area was prepped and draped in a sterile fashion using iodine x3. Under fluoroscopy guidance on an AP view, the C3 through C6 vertebral bodies were visualized at approximately 10-degree angle, starting on the right C3, ending on the right C6, passing through the C4 and C5. Using a 25-gauge 3-1/2-inch spinal needle, the needle was advanced via the skin. The tip of the needle was maneuvered and directed towards the epiphyseal junction of each corresponding vertebra. Once the tip of the needle was at the vicinity of the medial branch, the needle was pulled approximately 2 mm off the bone. After negative aspiration of blood or CSF and confirmation on AP, oblique as well as lateral view, a total of 4 mL of preservative-free 0.25% Marcaine with 80 mg of Depo-Medrol was injected in divided doses between those four levels. The needles were then removed intact. The patient experienced no sign or symptoms of intrathecal or intravascular injection. The patient experienced no paresthesia. The procedure was completed without any apparent difficulty or any complications. The patient appeared to tolerate it well. ASSESSMENT AND PLAN: This is a 74-year-old female with cervical spondylosis, cervical degenerative disc disease, cervical facet arthropathy status post right-sided cervical medial branch block C3-C6, patient will continue her current medications, patient will follow-up in approximately 1 to 2 weeks for reevaluation. Surgical Findings: 0 Complications Complications: No Admit VTE Documentation VTE Present on Admission: No VTE Mechan Device Prophylaxis: None VTE Pharm Prophylaxis ordered?: No 09/03/24 1010 Cosigner Signature (if applicable): CC: Dr. Brandon Cuellar MD; Dr. Bernie Jovel DO Signed [facility] MR/PAT.ANEon 08-30-2024 MR/PAT.[facility] Medical Records Department [address] [place] [address] PAT - Anesthesia 08/30/24 1429 MR#: [id number] Acct: [id number] Name: SILVIA ROSADO Rep #: [id number] : 1950 74 From: Yovanny Gardner MD PCP: Dr. Bernie Jovel DO Status:PRE [facility] [place] Race: C Location[place] [facility] Pre-Assessment Diagnosis/Proposed Procedure Planned Operative Procedure(s): (R) Cervical MEDIAL BRANCH BLOCK AT C3 C4 C5 C6 UNDER FLUOROSCOPY Anesthesia History Anesthesia History - protection consultant: Anesthesia History - protection consultant Hx Hospitalization No 08/30/24 10:57 Any Problems With Anesthesia No 08/30/24 10:57 Cholinesterase deficiency No 08/30/24 10:57 You/Your Family Experience No 08/30/24 10:57 fever (hyperthermia) with Relationship Recent Exposure to Contagious No 06/18/24 11:04 Disease Does patient have nerve No 08/30/24 10:57 stimulator Patient instructed to have device shut off --Does patient have Pacemaker or ICD? When Was Last Pacemaker Check QUESTION #4 FULL TEXT: You/Your Family Experience fever (hyperthermia) with Anesthesia Last Oral Intake Last Oral intake: Last Oral Intake NPO since Meds taken in AM with sips of water? 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 - protection consultant: PONV - protection consultant Female Yes 08/30/24 10:57 HX of Motion Sickness Yes 08/30/24 10:57 HX of N/V After Surgery No 08/30/24 10:57 Non-Smoker No 08/30/24 10:57 Duration of Surgery greater No 08/30/24 10:57 than 60 minutes Number of Risk Factors 2 08/30/24 10:57 PONV Score Moderate Risk 08/30/24 10:57 Height Weight Height Weight: Anesthesia: Height Weight Height 5 ft 4 in 07/31/24 08:00 Respiratory Assessment Respiratory Assessment - protection consultant: Respiratory Tract Infection Hx - protection consultant Hx Respiratory Tract Infection No 08/30/24 10:57 STOP Sleep Apnea STOP Sleep Apnea - protection consultant: STOP Sleep Apnea - protection consultant Hx Hypertension Yes: on meds 08/30/24 10:57 Hx Sleep Apnea No 08/30/24 10:57 CPAP No 06/18/24 11:40 BIPAP No 05/17/24 12:58 Do you snore loudly (louder No 08/30/24 10:57 than talking or can be heard Do you often feel tired/ No 08/30/24 10:57 fatigued/ sleepy during daytime? Has anyone observed you stop No 08/30/24 10:57 breathing during sleep? STOP Results Negative 08/30/24 10:57 QUESTION #5 FULL TEXT : Do you snore loudly (louder than talking or can be heard through closed doors)? Tobacco Use History Tobacco Use History - protection consultant: Tobacco Use History - protection consultant Tobacco Use Smoking Status Heavy Smoker (>10/day) 08/30/24 10:57 Hx Tobacco Use Yes 08/30/24 10:57 Years Smoking Packs Smoked per Day Smoking Cessation Date was within the last 15 years Hx Smoking Cessation Date 08/22/20 08/30/24 10:57 Hx Smoking Cessation No 08/30/24 10:57 Counseling Hematologic Medial History Hematologic Hx - protection consultant: Hematologic Medical Hx - clinical documentation spec Hx of Blood Transfusion No 08/30/24 10:57 Hx of Transfusion in last 3 No 08/30/24 10:57 Months Date of Last Transfusion (if within last 3 months) Ever experience any problems No 08/30/24 10:57 with transfusion(s)? Specify any problems Hx of Preganancy in last 3 No 08/30/24 10:57 Months Nurse Filling Out Transfusion [email or web address] 08/30/24 10:57 Questions: Date: 08/30/24 08/30/24 10:57 Time: 11:00 08/30/24 10:57 Patient unable to answer at this time (ie. confused, unrespo /Reproduction History /Reproductive History - protection consultant: /Reproductive Hx- protection consultant Hx Now No 08/30/24 10:57 Gestational Age (in weeks): EDC: Hx Hx Para Hx Section SAB No 08/30/24 10:57 [facility] Medical History (Updated 08/30/24 @ 10:57 by Lillie Lee) Arthritis Bipolar disorder Depression Anxiety Migraine headache Dietary restriction History of diverticulitis Chronic cough History of echocardiogram Hypertension Cardiology follow-up encounter COPD (chronic obstructive pulmonary disease) Shortness of breath on exertion Ambulates with cane High cholesterol Smoker History of edema History of CHF (congestive heart failure) Fall Hyperlipidemia Nicotine dependence History of pulmonary embolus (PE) (07/13/20) (HFpEF) heart failure with preserved ejection fraction (07/13/20) Pericardial effusion without cardiac tamponade (07/13/20) Essential (primary) hypertension Anasarca Degeneration of intervertebral disc of lumbosacral region Spondylosis of lumbosacral region without myelopathy o (more content not included)... Normal [facility] TRIMETHOPRIM+SULFAMETHOXAZOL E:SUSC:PT:ISOLATE:ORDQN:MICon 08-07-2024 Trimethoprim+Sulfametho xazole HERMINIA [Susc] >100,000 cfu/ml Escherichia coli [facility] Work Phone: Trimethoprim+Sulfamethoxazol e HERMINIA [Susc]on 08-07-2024 Escherichia coli Escherichia coli [facility] Work Phone: Pulmonary Visit Reporton Pulmonary Visit Report [facility] [address] [place], [place] [address] OFFICE VISIT Date of Service: 07/31/24 MR#: [id number] Acct: [id number] Name: SILVIA ROSADO Rep #: [id number] : 1950 Provider: Xena Ramírez NP Age/Sex: 74/F Location: [facility] Status: Signed Assessment and Plan Assessment and Plan (1) Stage 1 mild COPD by GOLD classification: Status: Acute Plan: Deteriorated, the disease process has progressed as she has moved from a mild disease to now moderate. There is symmetric reduction in diffusion capacity now, previously there was a disproportionate reduction in diffusion capacity. The diffusion capacity has not significantly worsened since last study. The progression of the disease process is likely to the fact that the patient has continued to smoke cigarettes. Smoking cessation is warranted now. Dulera and Spiriva have not been beneficial to her, I would recommend discontinuing this regimen and beginning Trelegy. The use and potential side effects of this inhaler were reviewed with the patient today. I have also recommended a nocturnal oximetry be performed as the 6-minute walk test did show some reduction in oxygenation with exertion but not at the point of needing supplemental oxygen during the day. (2) Nicotine dependence: Status: Chronic Qualifiers: Nicotine product type: cigarettes Substance use status: uncomplicated Qualified Code(s): F17.210 - Nicotine dependence, cigarettes, uncomplicated Comment: Currently 1 pack/day repeat LDCT December 2024 Plan: The patient indicates that she is not willing to quit smoking at this time. She understands how continued smoking will further worsen her lung functioning. Continue surveillance with annual LDCT in 12 months , previously ordered December 2024. Follow-up after imaging (3) Shortness of breath: Status: Acute Plan: Last echocardiogram was from 2020 with pulmonary artery systolic pressure at 36 mmHg. While the shortness of breath is likely multifactorial and a component may be from worsening COPD I am concerned that the patient may also be experiencing worsening right sided heart disease as she has pedal edema and 3 pillow orthopnea present along with exertional shortness of breath. I have recommended repeating the echocardiogram and obtaining a proBNP at this time. Await nocturnal oximetry. If nocturnal hypoxemia is present then this could also be contributing to higher pulmonary artery pressures and worsening shortness of breath. Orders: Orders OutPt Pulse Ox/Cont Overnight Today R06.02 - Shortness of breath Echo Complete W/ Contrast Today R06.02 - Shortness of breath Pro- Brain NATRIURETIC PEPTIDE Today R06.02 - Shortness of breath Medications: New qhpctcszkce-cllkmeevb-k ilanter 100-62.5-25 mcg (Trelegy Ellipta) 1 inh inhalation Q24H 60 ea 5RF R06.02 - Shortness of breath Discontinued umeclidinium-vilanterol 62.5-25 mcg/actuation (Anoro Ellipta) Discontinued Reason: Order Changed 1 inh inhalation DAILY Plan Details Follow Up: 6 to 8 weeks (LMR) HPI HPI Comments Details: Patient is a 74-year-old female who presents today to follow-up on recent testing. She is in a wheelchair and currently on room air. She has not been seen in the ED or urgent care for any respiratory illness since her last office visit. She has not required any antibiotics or prednisone for any breathing problems. At last visit therapy was escalated from Anoro to Dulera and Spiriva. The patient did attempt to get Trelegy but the insurance would not cover at that time because she has not failed this therapy. The patient indicates that she has tolerated this escalation well and is not convinced that there has been significant improvement in regards to her shortness of breath. She has had no side effects from the inhaler such as sore throat or thrush. She is rinsing her mouth out after use. She will use her rescue inhaler on occasion. She continues to smoke cigarettes. Currently smoking 3/4 pack/day. She does have wheezing on occasion and a productive cough with yellow to green sputum on occasion. She reports shortness of breath will occur with walking which is her main complaint today. It takes her a few minutes to recover when she has stopped the activity. She does not have shortness of breath at rest. There is pedal edema present. The patient indicates that she has been compliant with Lasix. She denies chest pain and chest tightness. She denies any fever, chills or body aches. Low-dose CT lung screening completed on December 27, 2023. No suspicious noncalcified mass or nodule. Recommend continuing annual screening with LDCT in 12 months. Documentation reviewed with patient today includes: 6-minute walk test from May 01, 2024 shows a anna oxygen saturation 91%. There is (more content not included)... Normal [facility] Bedside Glucoseon 06-18-2024 FINGERSTICK GLU 132 mg/dL High 74-106 [facility] Comment on above: Result Comment: SCARLET SAUNDERS OF PATIENT CARE PER NURSING PROTOCOL Performed By: #### L 501.080 ####[facility] [id number] [facility] [place], [address] Fluor Guidance for Spine Inj on 06-18-20[address] Fluor [address] Spine Inj [facility] Imaging Services [address], [place] [address] Fluor Guidance for Spine Inj MR#: [id number] Acct: [id number] Name: SILVIA ROSADO Rep #: [id number] : 1950 F 74 From: Stevo Curtis i, DO PCP: Dr. Bernie Jovel DO Status: DEP [facility] Study: Fluor Guidance for Spine Inj Date of Exam: Exam# [id number] Ordering Dr: Brandon Cuellar MD PROCEDURE: Fluoroscopy use. 06/18/2024 REASON FOR EXAM: BLOCK, CAUDAL TECHNIQUE: A single intraoperative spot image was obtained during caudal nerve block. 7.5 seconds of fluoroscopic time utilized. COMPARISON: None. FINDINGS: A single lateral spot image of the sacrum was obtained during caudal nerve block. The needle tip projects near the distal sacrum. RAD/Fluor Guidance for Spine Inj IMPRESSION: Documentation of fluoroscopy use during caudal nerve block. Please see the procedure note for details. Reading Location: [facility] CC: Dr. Brandon Cuellar MD; Dr. Bernie Jovel DO Pickle Cutter: Signed Normal [facility] Glucose measurement at [facility] deOrdered By: Brandon Cuellar on 06-18-2024 Bedside Glucose (Misc Panel) 132 mg/dL High 74-106 [facility] Comment on above: MANAGEMENT OF PATIEN T CARE PER NURSING PROTOCOL Glucose [Mass/Vol] 132 mg/dL High 74-106 [facility] Comment on above: MANAGEMENT OF PATIEN T CARE PER NURSING PROTOCOL MR/POSTOP.ANEon 06-18-2024 MR/POSTOP.ANE [facility] Medical Records Department [address] [place] [address] Anesthesia Postop Eval I 06/18/24 1147 MR#: [id number] Acct: [id number] Name: ROSADOSTEVENE JONEL Rep #: [id number] : 1950 74 From: Delma Aldana CRNA PCP: Dr. Bernie Jovel, DO Status:REG SDC Y Race: C Location: [place] [address] Anesthesia: Postop Eval I Current Vital Signs Temperature: 97.4 F Pulse Rate: 78 Blood Pressure: 90/55 Respiratory Rate: 14 Pulse Ox: 98 Oxygen Delivery Method: Room Air Assessment Airway patent: Yes Spontaneous unlabored respirations: Yes Mental status: Awake nausea: No Vomiting: No Anesthesia Complication: No Fluid Hydration Crystalloid volume administer (ml): 10 Total IV fluid infused: 10 Progress Note Anesthesia document: Postop Eval 1 completed: Yes 06/18/24 1148 Date Delma Aldana CRNA Cosigner Signature: Date CC: Signed [facility] MR/[id number] 06-18-2024 MR/POSTOPAN2 [facility] Medical Records Department [address] [place] [address] Anesthesia Postop Eval II 06/18/24 1226 MR#: [id number] Acct: [id number] Name: SILVIA ROSADO Rep #: [id number] : 1950 74 From: Josefina Parker PCP: Dr. Bernie Jovel, DO Status:REG SDC Y Race: C Location: [place] [address] Anesthesia Postop Eval I Sum Postop Eval Completion status Anesthesia document: Postop Eval 1 completed: Yes Anesthesia Postop Eval I Summary Anesthesia Postop Eval I Summary: Anesthesia Postop Eval I: Assessment Summary Airway patent Yes 06/18/24 11:48 LUMBER CARRIER.HBARR Spontaneous unlabored Yes 06/18/24 11:48 LUMBER CARRIER.HBARR respirations Mental status Awake 06/18/24 11:48 LUMBER CARRIER.HBARR nausea No 06/18/24 11:48 LUMBER CARRIER.HBARR Vomiting No 06/18/24 11:48 LUMBER CARRIER.HBARR Anesthesia Postop Eval I: Fluid Summary Crystalloid volume administer 10 06/18/24 11:48 LUMBER CARRIER.HBARR (ml) Colloids volume administered ( ml) Blood Product volume administered (ml) Total IV fluid infused 10 06/18/24 11:48 LUMBER CARRIER.HBARR Anesthesia Postop Eval I: Summary Notes Anesthesia Complication No 06/18/24 11:48 LUMBER CARRIER.HBARR Anesthesia Complication Comment: Post-operative progress note Anesthesia: Postop Eval II Evaluation Mental status: Awake Pain Level: 3 nausea: No Vomiting: No 06/18/24 1226 Date Josefina Harris Signature: Date CC: Signed [facility] Operative Reporton 5 Operative Report [facility] Medical Records Department [address] [place] [address] Operative Report 06/18/24 1137 MR#: [id number] Acct: [id number] Name: ROSADOSILVIA JONEL Rep #: [id number] : 1950 74 From: Brandon Cuellar MD PCP: Dr. Bernie Jovel, DO Status:REG SDC Location: [place] [address] Operative Report (Standard) Operative Information Date of Procedure: 06/18/24 Pre-Operative Diagnosis: Lumbosacral radiculopathy, lumbosacral spinal stenosis, lumbosacral degenerative disc disease Post-Operative Diagnosis: Lumbosacral radiculopathy, lumbosacral spinal stenosis, lumbosacral degenerative disc disease Surgery/Procedure Performed: Diagnostic/therapeutic caudal epidural steroid injection under fluoroscopic guidance. 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 ANESTHESIA: MAC. BLOOD LOSS: Minimal. COMPLICATIONS: None. DESCRIPTION OF PROCEDURE: History and physical of today was reviewed. Risks and benefits of the procedure were explained. The patient understood and agreed to proceed. Informed consent was obtained. IV inserted per routine protocol. The patient was taken to the operating room and placed in the prone position with a pillow positioned underneath the abdomen. The lower back and tailbone area was prepped and draped in a sterile fashion using iodine x3. Under fluoroscopy guidance on a lateral view, the caudal space was identified. The skin and subcutaneous tissue was anesthetized with approximately 3 mL of 1% lidocaine using a 25-gauge regular needle. Under direct visualization with fluoroscopy, using a 22-gauge 3-1/2-inch spinal needle, the needle was advanced via the skin through the sacral hiatus. The tip of the needle was passed through the sacrococcygeal ligament and advanced to approximately S4 area. After negative aspiration of blood or CSF, a total of 3 mL of contrast was injected to confirm correct placement of the needle as well as cephalad spread. The spread was followed to approximately L5 area. After confirmation on AP as well as lateral view and repeated negative aspiration, a total of 15 mL of preservative-free 0.125% Marcaine with 80 mg of Depo-Medrol was injected easily. The needle was then removed intact. The patient experienced no sign or symptoms of intrathecal or intravascular injection. The patient experienced no paresthesia. The procedure was completed without any apparent difficulty or any complications. The patient appeared to tolerate it well. ASSESSMENT AND PLAN: This is a 74-year-old female with lumbosacral radiculopathy, lumbosacral region degenerative disc disease, lumbosacral spinal stenosis, status post Diagnostic/therapeutic caudal epidural steroid injection under fluoroscopic guidance, patient will continue her current medications, patient will follow-up in approximately 2 weeks for reevaluation. Surgical Findings: 0 Complications Complications: No Admit VTE Documentation VTE Present on Admission: No VTE Mechan Device Prophylaxis: None VTE Pharm Prophylaxis ordered?: No 06/18/24 1139 Cosigner Signature (if applicable): CC: Dr. Brandon Cuellar MD; Dr. Bernie Jovel DO Signed [facility] MR/PAT.ANEon 05-17-2024 MR/PAT.[facility] Medical Records Department [address] [place] [id number] PAT - Anesthesia 05/17/24 1357 MR#: [id number] Acct: [id number] Name: SILVIA ROSADO Rep #: [id number] : 1950 74 From: Giovanni Thakkar MD PCP: Dr. Bernie Jovel DO Status[place] [facility] [place] C [place] [facility] [place] Diagnosis/Proposed Procedure Planned Operative Procedure(s): caudal block Anesthesia History Anesthesia History - protection consultant: Anesthesia History - protection consultant Hx Hospitalization No 05/17/24 12:58 Any Problems With Anesthesia No 05/17/24 12:58 Cholinesterase deficiency No 05/17/24 12:58 You/Your Family Experience No 05/17/24 12:58 fever (hyperthermia) with Relationship Recent Exposure to Contagious No 04/09/24 08:44 Disease Does patient have nerve No 05/17/24 12:58 stimulator Patient instructed to have device shut off --Does patient have Pacemaker or ICD? When Was Last Pacemaker Check QUESTION #4 FULL TEXT: You/Your Family Experience fever (hyperthermia) with Anesthesia Last Oral Intake Last Oral intake: Last Oral Intake NPO since Meds taken in AM with sips of water? 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 - protection consultant: PONV - protection consultant Female Yes 05/17/24 12:58 HX of Motion Sickness Yes 05/17/24 12:58 HX of N/V After Surgery No 05/17/24 12:58 Non-Smoker No 05/17/24 12:58 Duration of Surgery greater No 05/17/24 12:58 than 60 minutes Number of Risk Factors 2 05/17/24 12:58 PONV Score Moderate Risk 05/17/24 12:58 Height Weight Height Weight: Anesthesia: Height Weight Height 5 ft 3 in 05/01/24 13:06 Respiratory Assessment Respiratory Assessment - protection consultant: Respiratory Tract Infection Hx - protection consultant Hx Respiratory Tract Infection No 05/17/24 12:58 STOP Sleep Apnea STOP Sleep Apnea - protection consultant: STOP Sleep Apnea - protection consultant Hx Hypertension Yes: CONTROLLED WITH MED 05/17/24 12:58 Hx Sleep Apnea No 05/17/24 12:58 CPAP No 05/17/24 12:58 BIPAP No 05/17/24 12:58 Do you snore loudly (louder No 05/17/24 12:58 than talking or can be heard Do you often feel tired/ No 05/17/24 12:58 fatigued/ sleepy during daytime? Has anyone observed you stop No 05/17/24 12:58 breathing during sleep? STOP Results Negative 05/17/24 12:58 QUESTION #5 FULL TEXT : Do you snore loudly (louder than talking or can be heard through closed doors)? Tobacco Use History Tobacco Use History - protection consultant: Tobacco Use History - protection consultant Tobacco Use Smoking Status Heavy Smoker (>10/day) 05/17/24 12:58 Hx Tobacco Use Yes 05/17/24 12:58 Years Smoking Packs Smoked per Day 1 05/17/24 12:58 Smoking Cessation Date was within the last 15 years Hx Smoking Cessation Date 05/17/24 12:58 Hx Smoking Cessation Counseling Hematologic Medial History Hematologic Hx - protection consultant: Hematologic Medical Hx - clinical documentation spec Hx of Blood Transfusion No 05/17/24 12:58 Hx of Transfusion in last 3 No 05/17/24 12:58 Months Date of Last Transfusion (if within last 3 months) Ever experience any problems No 05/17/24 12:58 with transfusion(s)? Specify any problems Hx of Preganancy in last 3 N/A 05/17/24 12:58 Months Nurse Filling Out Transfusion NBUCHER 05/17/24 12:58 Questions: Date: 05/17/24 05/17/24 12:58 Time: 12:59 05/17/24 12:58 Patient unable to answer at this time (ie. confused, unrespo /Reproduction History /Reproductive History - protection consultant: /Reproductive Hx- protection consultant Hx Now Gestational Age (in weeks): EDC: Hx Hx Para Hx Section [facility] Medical History (Updated 05/17/24 @ 13:05 by Stacey Mckeon) Bipolar disorder Depression Anxiety Migraine headache Dietary restriction History of diverticulitis Chronic cough History of echocardiogram Hypertension Cardiology follow-up encounter COPD (chronic obstructive pulmonary disease) Shortness of breath on exertion Ambulates with cane High cholesterol Smoker History of edema History of CHF (congestive heart failure) Fall Hyperlipidemia Nicotine dependence History of pulmonary embolus (PE) (07/13/20) (HFpEF) heart failure with preserved ejection fraction (07/13/20) Pericardial effusion without cardiac tamponade (07/13/20) Essential (primary) hypertension Anasarca Degeneration of intervertebral disc of lumbosacral region Spondylosis of lumbosacral region without myelopathy or radiculopathy Bilateral sacroiliitis Sacrococcygeal disorders, not elsewhere classified B (more content not included)... 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/RECEIVING CLERK SHIPPING/RECEIVING CLERK-C Status: REG CLI Location: PSN Date: Sex: F C PSN 6 Minute Walk Test 6 Minute Walk Test 6 Minute Walk Test: 6 Minute Walk Test PSN:6-Minute Walk Test Start: 05/01/24 13:06 Freq: Status: Active Protocol: [id number].[id number] Document 05/01/24 13:06 SFENTON (Rec: 05/01/24 13:08 SFENTON [id number]) 6 Minute Walk Test Date Performed 05/01/24 Time Performed 12:40 Height 5 ft 3 in Weight: 255 lb Weight in Pounds 255.[address]: Coral Clemons SHIPPING/RECEIVING CLERK Assistive device Walker used: Pre-test Oxygen Delivery Room Air Method Pulse Ox (%) 93 Pulse Rate (60-100 74 beats/min) Dyspnea Tanvi Scale ( 1 0-10) Exertion Tanvi Scale 6 (6-20) 1st minute Oxygen Delivery Room Air Method Pulse Ox (%) 93 Pulse Rate (60-100 80 beats/min) Number of Rests 1 Taken 2nd minute Oxygen Delivery Room Air Method Pulse Ox (%) 92 Pulse Rate (60-100 83 beats/min) 3rd minute Oxygen Delivery Room Air Method Pulse Ox (%) 92 Pulse Rate (60-100 86 beats/min) Number of Rests 1 Taken 4th minute Oxygen Delivery Room Air Method Pulse Ox (%) 91 Pulse Rate (60-100 86 beats/min) Number of Rests 1 Taken 5th minute Oxygen Delivery Room Air Method Pulse Ox (%) 93 Pulse Rate (60-100 87 beats/min) 6th minute Oxygen Delivery Room Air Method Pulse Ox (%) 92 Pulse Rate (60-100 90 beats/min) Dyspnea Tanvi Scale ( 4 0-10) Exertion Tanvi Scale 14 (6-20) Post-test Oxygen Delivery Room Air Method Pulse Ox (%) 94 Pulse Rate (60-100 73 beats/min) Full Laps Walked 6 Partial Lap, Number 17 of Tiles Walked Total Distance 371 Walked (ft) Interpretation Interpretation: The patient ambulated 371 feet over the course of 6 minutes beginning on room air with the use of a walker. Pretesting oxygen saturation was noted to be 93% on room air. With ambulation, the anna oxygen saturation was 91%. Although there was evidence of significantly impaired walk distance, there was no significant exertional oxygen desaturation. Recommendations Recommendations: There is no indication for the use of supplemental oxygen at this time. 05/09/24 1326 Date Med Wilder DO CC: Date Dictated: 05/09/24 1325 Date Transcribed: 05/09/24 1325 Pickle Cutter: Dr. Med Wilder, DO Signed Normal [facility] Bedside Glucoseon 04-09-2024 FINGERSTICK GLU 146 mg/dL High 74-106 [facility] Comment on above: Result Comment: SCARLET SAUNDERS OF PATIENT CARE PER NURSING PROTOCOL Performed By: #### L 501.080 ####[facility] [id number] [place], [place], [id number] Cerv Spine 2 or 3 Viewson Cerv Spine 2 or 3 Views [facility] Imaging Services [address] [place], [place] [address] Cerv Spine 2 or 3 Views MR#: [id number] Acct: [id number] Name: SILVIA ROSADO Rep #: [id number] : 1950 F 74 From: Tobi Vo MD PCP: Dr. Bernie Jovel DO Status: [facility] Study: Cerv Spine 2 or 3 Views Date of Exam: 04/09/24 Exam# [id number] Ordering Dr: Brandon Cuellar [place] [id number] PROCEDURE: Right cervical nerve block, C3-C6 DATE OF EXAMINATION: 04/09/2024 INDICATION: Female, 74 years old. Radiating neck pain PHYSICIAN: Brandon Cuellar MD FLUOROSCOPY TIME (if supplied): (10.2) seconds, 4 fluoroscopic images obtained RADIATION DOSAGE (If Supplied By Facility): CTDIvol = ( 3.2 ) mGy, DLP = ( ) mGycm CONSENT: The risks, benefits and alternatives to the procedure were explained to the patient, and the patient agreed to the procedure and signed the consent. SEDATION: Local STERILE BARRIER TECHNIQUE: The following sterile barrier precautions were used during the procedure: hand hygiene; use of 2% chlorhexidine aseptic; use of a cap, mask, sterile gown, sterile gloves, sterile full body drape, and a large sterile sheet. PROCEDURE/TECHNIQUE: (All elements of maximal sterile barrier technique followed, including US elements as applicable) The risks, benefits, and alternatives to the procedure were explained to patient, and the patient agreed to the procedure and signed a consent form for the procedure. A timeout was performed to confirm the patient''s identity, the type of procedure, to be performed and the site of entry. No intraoperative complications noted during right-sided nerve block from C3 to C6. RAD/Cerv Spine 2 or 3 Views IMPRESSION: No complications noted during cervical nerve block Electronically Signed: Mahendra Vo MD at 12:11 EST , CC: Dr. Brandon Cuellar MD; Dr. Bernie Jovel DO Pickle Cutter: Signed [facility] deOrdered By: Brandon Cuellar on 04-09-2024 Bedside Glucose (Misc Panel) 146 mg/dL High 74-106 [facility] Comment on above: MANAGEMENT OF PATIEN T CARE PER NURSING PROTOCOL MR/POSTOP.ANEon 04-09-2024 MR/POSTOP.[facility] Medical Records Department [address] [place] [address] Anesthesia Postop Eval I 04/09/241024 MR#: [id number] Acct: [id number] Name: SILVIA ROSADO Rep #: [id number] : 1950 74 From: Scottie Sheldon CRNA PCP: Dr. Bernie Jovel DO Status:REG SDC Y Race: C Location: [place] [address] Anesthesia: Postop Eval I Current Vital Signs Temperature: 97.9 F Pulse Rate: 52 Blood Pressure: 93/53 Respiratory Rate: 15 Pulse Ox: 93 Oxygen Delivery Method: Room Air Assessment Airway patent: Yes Spontaneous unlabored respirations: Yes Mental status: Awake and Calm nausea: No Vomiting: No Anesthesia Complication: No Fluid Hydration Crystalloid volume administer (ml): 30 Total IV fluid infused: 30 Progress Note Anesthesia document: Postop Eval 1 completed: Yes 04/09/24 1025 Date Scottie Sheldon LUMBER CARRIER Cosigner Signature: Date CC: Signed [facility] MR/[id number] 04-09-2024 MR/POSTOPAN2 [facility] Medical Records Department [address] [place] [address] Anesthesia Postop Eval II 04/09/24 1043 MR#: [id number] Acct: [id number] Name: SILVIA ROSADO Rep #: [id number] : 1950 74 From: Louis Lugo MD PCP: Dr. Bernie Jovel, DO Status:REG SDC Y Race: C Location: [place] [address] Anesthesia Postop Eval I Sum Postop Eval Completion status Anesthesia document: Postop Eval 1 completed: Yes Anesthesia Postop Eval I Summary Anesthesia Postop Eval I Summary: Anesthesia Postop Eval I: Assessment Summary Airway patent Yes 04/09/24 10:25 LUMBER [email or web address] Spontaneous unlabored Yes 04/09/24 10:25 LUMBER [email or web address].[email or web address] respirations Mental status Awake,Calm 04/09/24 10:25 LUMBER [email or web address].JBLOU nausea No 04/09/24 10:25 LUMBER [email or web address].JBLOU Vomiting No 04/09/24 10:25 LUMBER [email or web address].JBLOU Anesthesia Postop Eval I: Fluid Summary Crystalloid volume administer 30 04/09/24 10:25 LUMBER [email or web address].JBLOU (ml) Colloids volume administered ( ml) Blood Product volume administered (ml) Total IV fluid infused 30 04/09/24 10:25 LUMBER [email or web address].JBLOU Anesthesia Postop Eval I: Summary Notes Anesthesia Complication No 04/09/24 10:25 LUMBER [email or web address].JBLOU Anesthesia Complication Comment: Post-operative progress note Anesthesia: Postop Eval II Evaluation Mental status: Awake Pain Level: 0 nausea: No Vomiting: No 04/09/24 1043 Date Louis Harris Signature: Date CC: Signed [facility] Operative Reporton Operative Report [facility] Medical Records Department [address] [place] [address] Operative Report 04/09/24 0949 MR#: [id number] Acct: [id number] Name: SILVIA ROSADO Rep #: [id number] : 1950 74 From: Brandon Cuellar MD PCP: Dr. Bernie Jovel, DO Status[facility] Location: [place] [address] Operative Report (Standard) Operative Information Date of Procedure: 04/09/24 Pre-Operative Diagnosis: 1 Post-Operative Diagnosis: 1 Surgery/Procedure Performed: 1 slitting machine operator helper: No Type of Anesthesia: MAC and Topical Anesth RN Documented Start/Stop Times: Operation Date: 04/09/24 09:20 Case Time Into Pre-Op 04/09/24 08:25 Out of Pre-Op 04/09/24 09:28 Anesthesia Start 04/09/24 09:37 Into Room 04/09/24 09:37 Procedure Start 04/09/24 09:44 Procedure End 04/09/24 09:48 Procedure Start Time: 09:49 Procedure Stop Time: 09:49 Select all DRAINS/GRAFTS/IMPLANTS that apply: None Estimated Blood Loss: 0 Specimen collected: No Description of surgery: PREOPERATIVE DIAGNOSIS: Cervical spondylosis, cervical degenerative disc disease, cervical facet arthropathy POSTOPERATIVE DIAGNOSIS:Cervical spondylosis, cervical degenerative disc disease, cervical facet arthropathy PROCEDURE PERFORMED: Right sided cervical medial branch block at C3, C4, C5, and C6. ANESTHESIA: MAC. BLOOD LOSS: Minimal. COMPLICATIONS: None. DESCRIPTION OF PROCEDURE: History and physical of today was reviewed. Risks and benefits of the procedure were explained. The patient understood and agreed to proceed. Informed consent was obtained. IV inserted per routine protocol. The patient was taken to the operating room and placed in the prone position with a pillow positioned underneath the chest. The neck area was prepped and draped in a sterile fashion using iodine x3. Under fluoroscopy guidance on an AP view, the C3 through C6 vertebral bodies were visualized at approximately 10-degree angle, starting on the right C3, ending on the right C6, passing through the C4 and C5. Using a 25-gauge 3-1/2-inch spinal needle, the needle was advanced via the skin. The tip of the needle was maneuvered and directed towards the epiphyseal junction of each corresponding vertebra. Once the tip of the needle was at the vicinity of the medial branch, the needle was pulled approximately 2 mm off the bone. After negative aspiration of blood or CSF and confirmation on AP, oblique as well as lateral view, a total of 4 mL of preservative-free 0.25% Marcaine with 80 mg of Depo-Medrol was injected in divided doses between those four levels. The needles were then removed intact. The patient experienced no sign or symptoms of intrathecal or intravascular injection. The patient experienced no paresthesia. The procedure was completed without any apparent difficulty or any complications. The patient appeared to tolerate it well. ASSESSMENT AND PLAN: This is a 74-year-old female with cervical spondylosis, cervicogenic disc disease, cervical facet arthropathy status post right-sided cervical medial branch block C3-C6, patient will continue her current medications, patient will follow-up in approximately 1 to 2 weeks for reevaluation Surgical Findings: 1 Complications Complications: No Admit VTE Documentation VTE Present on Admission: No VTE Mechan Device Prophylaxis: None VTE Pharm Prophylaxis ordered?: No 04/09/24 0951 Cosigner Signature (if applicable): CC: Dr. Brandon Cuellar MD; Dr. Bernie Jovel DO Signed Normal [facility] Thin prep Papanicolaou smear with manual screeningOrdered By: Brandon Cuellar on 08-08-2023 Thin prep Papanicolaou smear with manual screening 136 mg/dL 74-106 [facility] Comment on above: MANAGEMENT OF PATIEN T CARE PER NURSING PROTOCOL Basophil percentageOrdered B y: Sunshine Sandy on 06-15-2023 Bilirubin [Mass/Vol] 0.60 mg/dL 0.20-1.00 [facility] Comment on above: For patients on eltr ombopag therapy, use of Dimension [place] TBIL is not recommended. Chloride [Moles/Vol] 101 mmol/L 98-107 [facility] Cholesterol [Mass/Vol] 184 mg/dL <200 [facility] Comment on above: <200 mg/dL Desirable 200-240 mg/dL Borderline >240 mg/dL High Risk Glucose [Mass/Vol] 211 mg/dL 74-106 [facility] Comment on above: Glucose result great er than or equal to 200 mg/dLsuggests DIABETES MELLITUS per A.D.A. criteria. Hemoglobin (Bld) [Mass/Vol] 12.4 g/dL 12.0-15.0 [facility] Potassium [Moles/Vol] 4.1 mmol/L 3.5-5.1 [facility] Protein [Mass/Vol] 7.1 g/dL 6.4-8.2 [facility] Sodium [Moles/Vol] 137 mmol/L 136-145 [facility] Triglyceride [Mass/Vol] 294 mg/dL <199 [facility] Comment on above: The drugs N-Acetylcy steine and Metamizole may falsely depress this assay.Serum Triglycerides Reference Interval Normal <150 mg/dL Borderline high 150 - 199 mg/dL High 200 - 499 mg/dL Very High > or = 500 mg/dL WBC (Bld) [#/Vol] 11.3 10*3/uL 4.4-11.0 [facility] Determination of erythrocyte mean corpuscular volume (MCV)Ordered By: Sunshine Delgado on 06-15-2023 MCV (RBC) [Entitic vol] 85.6 fL 81-[address] [facility] Erythrocyte distribution wid th ratioOrdered By: Sunshine Delgado on 06-15-2023 Erythrocyte distribution width (RBC) [Ratio] 15.4 % 11.6-14.6 [facility] Erythrocyte distribution wid th standard deviationOrdered By: Sunshine Delgado on 06-15-2023 Erythrocyte distribution width (RBC) [Entitic vol] 47.6 fL 35.1-43.9 [facility] Hematocrit Auto (Bld) [Volum e fraction]Ordered By: Sunshine Delgado on 06-15-2023 Hematocrit (Bld) [Volume fraction] 38.5 % 37-47 [facility] - Chemistry and C hemistry - challengeOrdered By: Sunshine Delgado on 06-15-2023 Albumin/Globulin [Mass ratio] 0.8 {ratio} 0.9-2.4 [facility] ALP [Catalytic activity/Vol] 112 U/L 45-117 [facility] ALT [Catalytic activity/Vol] 21 U/L 13-56 [facility] Cholesterol in HDL [Mass/Vol] 32 mg/dL >40 [facility] Comment on above: The drugs N-Acetylcy steine and Metamizole may falsely depress this assay. Reference Range HDL <40 mg/dL Low HDL Cholesterol HDL >or= 60 mg/dL High HDL Cholesterol Cholesterol in LDL [Mass/Vol] 93 mg/dL 0-130 [facility] CO2 [Moles/Vol] 24.0 mmol/L 21.0-32.0 [facility] Globulin (S) [Mass/Vol] 3.9 g/dL 2.2-4.[address] [facility] Urea nitrogen/Creatinine [Mass ratio] 17.4 mg/mg 10-20 [facility] - Hematology and Cell countsOrdered By: Sunshine Delgado on 06-15-2023 MCH (RBC) [Entitic mass] 27.6 pg 27.0-32.0 [facility] MCHC (RBC) [Mass/Vol] 32.2 g/dL 32-36 [facility] Platelet mean volume (Bld) [Entitic vol] 9.9 fL 6.2-12.0 [facility] Platelets (Bld) [#/Vol] 290 10*3/uL 150-450 [facility] No Panel InformationOrdered By: Sunshine Delgado on 06-15-2023 Estimated GFR (MDRD) Amer 63 mL/min >60 [facility] Comment on above: GFR Calc Estimated GFR (MDRD) Non-Af Amer 52 mL/min >60 [facility] Comment on above: Non- GFR Calc Urine Microalbumin/Creatinine Ratio 7.1 mg/g CRE <30 [facility] VLDL Cholesterol 59 mg/dL 5-40 [facility] RBC Auto (Bld) [#/Vol]Ordere d By: Sunshine Delgado on 06-15-2023 RBC (Bld) [#/Vol] 4.50 10*6/uL 4.2-5.4 [facility] Serum or plasma calcium ren urement (mass/volume)Ordered By: Sunshine Delgado on 06-15-2023 Calcium [Mass/Vol] 9.2 mg/dL 8.5-10.1 [facility] Serum or plasma creatinine m easurement (mass/volume)Ordered By: Sunshine Delgado on 06-15-2023 Creatinine [Mass/Vol] 1.09 mg/dL 0.55-1.02 [facility] Comment on above: The validity of the calculated GFR & GFRAA in patients over 70 years has not been determined. Clinical correlation is essential. Serum or plasma urea nitroge n measurement (mass/volume)Ordered By: Sunshinekiel Delgado on 06-15-2023 Urea nitrogen [Mass/Vol] 19 mg/dL 7-18 [facility] Thin prep Papanicolaou smear with manual screeningOrdered By: Sunshinekiel Delgado on 06-15-2023 Thin prep Papanicolaou smear with manual screening 3.2 g/dL 3.2-5.0 [facility] Thin prep Papanicolaou smear with manual screening 10 U/L 15-37 [facility] Thin prep Papanicolaou smear with manual screening 12 5-15 [facility] Thin prep Papanicolaou smear with manual screening 10.8 mg/L NO RANGE EST. [facility] Urine creatinine measurement (mass/volume)Ordered By: Sunshine Delgado on 06-15-2023 Creatinine (U) [Mass/Vol] 152.00 mg/dL NO RANGE EST. [facility] Thin prep Papanicolaou smear with manual screeningOrdered By: Brandon Cuellar on 05-23-2023 Thin prep Papanicolaou smear with manual screening 329 mg/dL 74-106 [facility] Comment on above: MANAGEMENT OF PATIEN T CARE PER NURSING PROTOCOL [employer] Teacher Cytology Reporton 2022 Assistant Elementary Teacher Cytology Report . Pathology Reports Accession: Collected Date/Time: Received Date/Time: Pathologist: [id number] 02/15/2023 10:59 EST 02/15/2023 18:00 EST Assistant Elementary Teacher Cytology Report SPECIMEN: Specimen Description: Liquid Prep w/ HPV Specimen: Cervical Screening or Diagnostic: Screening RELEVANT HISTORY: LMP: postmenopausal SPECIMEN ADEQUACY: SATISFACTORY FOR EVALUATION Endocervical/Transforma tional zone component present INTERPRETATION/RESULTS: NEGATIVE FOR INTRAEPITHELIAL LESION OR MALIGNANCY HIGH RISK HPV TESTING: Event Code Result HPV Interp See Interp HPVN HPV Interp Text: High Risk HPV Typing: NEGATIVE HPV types 16, 18, 31, 33, 35, 39, 45, 51, 52, 56, 58, 59, 66 and 68 DNA were undetectable or below the pre-set threshold. The julianna High-Risk HPV DNA Test is not intended for use as a screening device for Pap normal women under age 30 and is not intended to substitute for regular Pap screening. The julianna High-Risk HPV DNA Test is designed to augment existing methods for the detection of cervical disease and should be used in conjunction with clinical information derived from other diagnostic and screening tests, physical examinations and full medical history in accordance with appropriate patient management procedures. NOTE: A negative result does not preclude the presence of HPV infection because results depend on adequate specimen collection, absence of inhibitors and sufficient DNA to be detected. As of: 02/25/23 13:14 EST COMMENT: This Pap Test was successfully processed and evaluated with the assistance of the [employer] Test Imaging System. Pathology Reports Accession: Collected Date/Time: Received Date/Time: Pathologist: [id number] 02/15/2023 10:59 EST 02/15/2023 18:00 EST Electronically Signed by Pathology report verified by [facility] Screened by: KK Electronically signed by Ana LOWE (ASCP) Sign-Out Date: 02/25/2023 13:14 Performing Lab: [facility], [address] [place] [address] Pathology Dept Disclaimer The Pap test is a screening test for cervical cancer. As evidenced by published data, it is subject to both inherent false negative and false positive results. Your patient's results should be interpreted in context with pertinent clinical history including gynecological examination. Normal [facility] ([place]) HPVon 02-25-2023 HPV Interp Normal See Interp HPVN [facility] [place] Comment on above: Order Comment: Order placed by AP_HPV_ORDER rule from [id number] Result Comment: High Risk HPV Typing: NEGATIVE HPV types 16, 18, 31, 33, 35, 39, 45, 51, 52, 56, 58, 59, 66 and 68 DNA were undetectable or below the pre-set threshold. The julianna High-Risk HPV DNA Test is not intended for use as a screening device for Pap normal women under age 30 and is not intended to substitute for regular Pap screening. The julianna High-Risk HPV DNA Test is designed to augment existing methods for the detection of cervical disease and should be used in conjunction with clinical information derived from other diagnostic and screening tests, physical examinations and full medical history in accordance with appropriate patient management procedures. NOTE: A negative result does not preclude the presence of HPV infection because results depend on adequate specimen collection, absence of inhibitors and sufficient DNA to be detected. See Interp HPVN Performed By: #### H PV #### [address] [address] HPV Source Cervix Normal [facility] [place] Comment on above: Order Comment: Order placed by [email or web address]_ORDER rule from [id number] Performed By: #### H PV #### [address] [address] No Panel Informationon 02-15 Culture Urine >100,000 cfu/ml Multiple bacterial morphotypes present. Probable Contamination. Suggest recollection if clinically indicated. [facility] Work Phone: Glucose Glucometer (BldC) [M ass/Vol]Ordered By: Brandon Cuellar on 12-20-2022 Glucose [Mass/Vol] 149 mg/dL 74-106 [facility] Comment on above: MANAGEMENT OF PATIEN T CARE PER NURSING PROTOCOL Basophil percentageOrdered B y: Dr. Jovel on 05-31-2022 Bilirubin [Mass/Vol] 0.30 mg/dL 0.20-1.00 [facility] Comment on above: For patients on eltr ombopag therapy, use of Dimension [place] TBIL is not recommended. Chloride [Moles/Vol] 108 mmol/L 98-107 [facility] Cholesterol [Mass/Vol] 220 mg/dL <200 [facility] Comment on above: <200 mg/dL Desirable 200-240 mg/dL Borderline >240 mg/dL High Risk Glucose [Mass/Vol] 110 mg/dL 74-106 [facility] Comment on above: Fasting Glucose resu lt from 100 to 125 mg/dL suggests IMPAIRED HOMEOSTASIS per A.D.A. criteria. Potassium [Moles/Vol] 4.8 mmol/L 3.5-5.1 [facility] Protein [Mass/Vol] 7.1 g/dL 6.4-8.2 [facility] Sodium [Moles/Vol] 136 mmol/L 136-145 [facility] Triglyceride [Mass/Vol] 300 mg/dL <199 [facility] Comment on above: The drugs N-Acetylcy steine and Metamizole may falsely depress this assay.Serum Triglycerides Reference Interval Normal <150 mg/dL Borderline high 150 - 199 mg/dL High 200 - 499 mg/dL Very High > or = 500 mg/dL WBC (Bld) [#/Vol] 10.3 10*3/uL 4.4-11.0 [facility] Blood erythrocytes count (nu mber/volume)Ordered By: Dr. Jovel on 05-31-2022 RBC (Bld) [#/Vol] 4.49 10*6/uL 4.2-5.4 [facility] Blood hemoglobin measurement (mass/volume)Ordered By: Dr. Jovel on 05-31-2022 Hemoglobin (Bld) [Mass/Vol] 12.9 g/dL 12.0-15.0 [facility] Blood platelet mean volumeOr dered By: Dr. Jovel on 05-31-2022 Platelet mean volume (Bld) [Entitic vol] 9.6 fL 6.2-12.0 [facility] Determination of erythrocyte mean corpuscular volume (MCV)Ordered By: Dr. Jovel on 05-31-2022 MCV (RBC) [Entitic vol] 89.1 fL 81-99 [facility] Hematocrit Auto (Bld) [Volum e fraction]Ordered By: Dr. Jovel on 05-31-2022 Hematocrit (Bld) [Volume fraction] 40.0 % 37-47 [facility] Laboratory - Chemistry and C hemistry - challengeOrdered By: Dr. Jovel on 05-31-2022 ALP [Catalytic activity/Vol] 127 U/L 45-117 [facility] ALT [Catalytic activity/Vol] 23 U/L 13-56 [facility] CO2 [Moles/Vol] 21.0 mmol/L 21.0-32.0 [facility] Globulin (S) [Mass/Vol] 3.6 g/dL 2.2-4.2 [facility] Urea nitrogen/Creatinine [Mass ratio] 14.7 mg/mg 10-20 [facility] - Hematology and Cell countsOrdered By: Dr. Jovel on 05-31-2022 Erythrocyte distribution width (RBC) [Entitic vol] 51.1 fL 35.1-43.9 [facility] Erythrocyte distribution width (RBC) [Ratio] 15.6 % 11.6-14.6 [facility] MCH (RBC) [Entitic mass] 28.7 pg 27.0-32.0 [facility] MCHC Auto (RBC) [Mass/Vol]Or dered By: Dr. Jovel on 05-31-2022 MCHC (RBC) [Mass/Vol] 32.3 g/dL 32-36 [facility] No Panel InformationOrdered By: Dr. Jovel on 05-31-2022 Urine Microalbumin/Creatinine Ratio TNP [facility] Comment on above: Test not performed Estimated GFR (MDRD) Amer 74 mL/min >60 [facility] Comment on above: GFR Calc Estimated GFR (MDRD) Non-Af Amer 61 mL/min >60 [facility] Comment on above: Non- GFR Calc Thyroid Stimulating Hormone (TSH) 2.92 uIU/mL 0.358-3.74 [facility] Platelets bldOrdered By: Dr. Jovel on 05-31-2022 Platelets (Bld) [#/Vol] 265 10*3/uL 150-450 [facility] Serum or plasma albumin ren urement (mass/volume)Ordered By: Dr. Jovel on 05-31-2022 Albumin [Mass/Vol] 3.5 g/dL 3.2-5.0 [facility] Serum or plasma albumin/glob ulin mass ratioOrdered By: Dr. Jovel on 05-31-2022 Albumin/Globulin [Mass ratio] 1.0 {ratio} 0.9-2.4 [facility] Serum or plasma calcium ren urement (mass/volume)Ordered By: Dr. Jovel on 05-31-2022 Calcium [Mass/Vol] 8.8 mg/dL 8.5-10.1 [facility] Serum or plasma cholesterol in HDL measurement (mass/volume)Ordered By: Dr. Jovel on 05-31-2022 Cholesterol in HDL [Mass/Vol] 31 mg/dL >40 [facility] Comment on above: The drugs N-Acetylcy steine and Metamizole may falsely depress this assay. Reference Range HDL <40 mg/dL Low HDL Cholesterol HDL >or= 60 mg/dL High HDL Cholesterol Serum or plasma cholesterol in VLDL measurement (mass/volume)Ordered By: Dr. Jovel on 05-31-2022 Cholesterol in VLDL [Mass/Vol] 60 mg/dL 5-40 [facility] Serum or plasma creatinine m easurement (mass/volume)Ordered By: Dr. Jovel on 05-31-2022 Creatinine [Mass/Vol] 0.95 mg/dL 0.55-1.02 [facility] Comment on above: The validity of the calculated GFR & GFRAA in patients over 70 years has not been determined. Clinical correlation is essential. Serum or plasma low density lipoprotein (LDL) cholesterol measurement (mass/volume)Ordered By: Dr. Jovle on 05-31-2022 Cholesterol in LDL [Mass/Vol] 129 mg/dL 0-130 [facility] Serum or plasma urea nitroge n measurement (mass/volume)Ordered By: Dr. Jovel on 05-31-2022 Urea nitrogen [Mass/Vol] 14 mg/dL 7-18 [facility] Thin prep Papanicolaou smear with manual screeningOrdered By: Dr. Jovel on 05-31-2022 Thin prep Papanicolaou smear with manual screening < 5.0 mg/L NO RANGE EST. [facility] Thin prep Papanicolaou smear with manual screening 11 U/L 15-37 [facility] Thin prep Papanicolaou smear with manual screening 7 5-15 [facility] Urine creatinine measurement (mass/volume)Ordered By: Dr. Jovel on 05-31-2022 Creatinine (U) [Mass/Vol] 46.20 mg/dL NO RANGE EST. [facility] LABORATORYOrdered By: Zuly Floyd on 05-27-2022 Albumin DL <= 20 mg/L (U) [Mass/Vol] 2697 mcg/dL Invalid Interpretation Code AO ADM SS Albumin/Creatinine DL <= 20 mg/L (U) [Mass ratio] 26 mcg/mg Invalid Interpretation Code 0 - 30 mcg/mg AO ADM SS Creatinine (U) [Mass/Vol] 104.8 mg/dL Invalid Interpretation Code 28.0 - 117.0 mg/dL AO ADM SS MALBRon 05-27-2022 U Creatinine 104.8 mg/dL Normal 28.0-117.0 [facility] ([place]) Comment on above: Performed By: #### M ALBR #### [address] [address] U Microalb 2697 mcg/dL Normal [facility] [place] Comment on above: Performed By: #### M ALBR #### [address] [place], [place] [address] U Ratio Alb/Cre 26 mcg/mg Normal 0-30 [facility] [place] Comment on above: Performed By: #### M ALBR #### [address] [address] No Panel Informationon 05-27 Culture Urine >100,000 cfu/ml Multiple bacterial morphotypes present. Probable Contamination. Suggest recollection if clinically indicated. [facility] Work Phone: Glucose Glucometer (BldC) [M ass/Vol]Ordered By: Dr. Cuellar on 05-24-2022 Glucose [Mass/Vol] 213 mg/dL 74-106 [facility] Comment on above: MANAGEMENT OF PATIEN T CARE PER NURSING PROTOCOL Glucose Glucometer (BldC) [M ass/Vol]on 01-04-2022 Glucose [Mass/Vol] 107 mg/dL 74-106 [facility] Work Phone: Comment on above: MANAGEMENT OF PATIEN T CARE PER NURSING PROTOCOL Glucose Glucometer (BldC) [M ass/Vol]on 11-16-2021 Glucose [Mass/Vol] 115 mg/dL 74-106 [facility] Work Phone: Comment on above: MANAGEMENT OF PATIEN T CARE PER NURSING PROTOCOL Basophil percentageon 2021 Chloride [Moles/Vol] 105 mmol/L 98-107 [facility] Work Phone: [phone] Glucose [Mass/Vol] 86 mg/dL 74-106 [facility] Work Phone: [phone] Potassium [Moles/Vol] 4.5 mmol/L 3.5-5.1 [facility] Work Phone: [phone] Sodium [Moles/Vol] 139 mmol/L 136-145 [facility] Work Phone: [phone] Laboratory - Chemistry and C hemistry - challengeon 10-28-2021 CO2 [Moles/Vol] 28.0 mmol/L 21.0-32.0 [facility] Work Phone: [phone] Natriuretic peptide B (Bld) [Mass/Vol] 78.6 pg/mL 0-100 [facility] Work Phone: [phone] Urea nitrogen/Creatinine [Mass ratio] 11.0 mg/mg 10-20 [facility] Work Phone: No Panel Informationon 10-28 Estimated GFR (MDRD) Amer 78 mL/min >60 [facility] Work Phone: Comment on above: GFR Calc Estimated GFR (MDRD) Non-Af Amer 65 mL/min >60 [facility] Work Phone: Comment on above: Non- GFR Calc Serum or plasma calcium ren urement (mass/volume)on 10-28-2021 Calcium [Mass/Vol] 9.2 mg/dL 8.5-10.1 [facility] Work Phone: [phone] Serum or plasma creatinine m easurement (mass/volume)on 10-28-2021 Creatinine [Mass/Vol] 0.91 mg/dL 0.55-1.02 [facility] Work Phone: Comment on above: The validity of the calculated GFR & GFRAA in patients over 70 years has not been determined. Clinical correlation is essential. Serum or plasma urea nitroge n measurement (mass/volume)on 10-28-2021 Urea nitrogen [Mass/Vol] 10 mg/dL 7-18 [facility] Work Phone: Thin prep Papanicolaou smear with manual screeningon 10-28-2021 Thin prep Papanicolaou smear with manual screening 6 5-15 [facility] Work Phone: Basophil percentageon 2021 Bilirubin [Mass/Vol] 0.30 mg/dL 0.20-1.00 [facility] Work Phone: Comment on above: For patients on eltr ombopag therapy, use of Dimension [place] TBIL is not recommended. Chloride [Moles/Vol] 103 mmol/L 98-107 [facility] Work Phone: Cholesterol [Mass/Vol] 219 mg/dL <200 [facility] Work Phone: [phone] Comment on above: <200 mg/dL Desirable 200-240 mg/dL Borderline >240 mg/dL High Risk Glucose [Mass/Vol] 97 mg/dL 74-106 [facility] Work Phone: Potassium [Moles/Vol] 4.5 mmol/L 3.5-5.1 [facility] Work Phone: [phone] Protein [Mass/Vol] 7.5 g/dL 6.4-8.2 [facility] Work Phone: [phone] Sodium [Moles/Vol] 138 mmol/L 136-145 [facility] Work Phone: [phone] Triglyceride [Mass/Vol] 394 mg/dL <199 [facility] Work Phone: [phone] Comment on above: The drugs N-Acetylcy steine and Metamizole may falsely depress this assay.Serum Triglycerides Reference Interval Normal <150 mg/dL Borderline high 150 - 199 mg/dL High 200 - 499 mg/dL Very High > or = 500 mg/dL Laboratory - Chemistry and C hemistry - challengeon 10-19-2021 ALP [Catalytic activity/Vol] 117 U/L 45-117 [facility] Work Phone: ALT [Catalytic activity/Vol] 27 U/L 13-56 [facility] Work Phone: [phone] CO2 [Moles/Vol] 28.0 mmol/L 21.0-32.0 [facility] Work Phone: [phone] Globulin (S) [Mass/Vol] 3.9 g/dL 2.2-4.2 [facility] Work Phone: [phone] Urea nitrogen/Creatinine [Mass ratio] 15.3 mg/mg 10-20 [facility] Work Phone: [phone] Panel Informationon 10-19 Estimated GFR (MDRD) Amer 62 mL/min >60 [facility] Work Phone: Comment on above: GFR Calc Estimated GFR (MDRD) Non-Af Amer 51 mL/min >60 [facility] Work Phone: Comment on above: Non- GFR Calc Serum or plasma albumin ren urement (mass/volume)on 10-19-2021 Albumin [Mass/Vol] 3.6 g/dL 3.2-5.0 [facility] Work Phone: Serum or plasma albumin/glob ulin mass ratioon 10-19-2021 Albumin/Globulin [Mass ratio] 0.9 {ratio} 0.9-2.4 [facility] Work Phone: Serum or plasma calcium ern urement (mass/volume)on 10-19-2021 Calcium [Mass/Vol] 9.6 mg/dL 8.5-10.1 [facility] Work Phone: [phone] Serum or plasma cholesterol in HDL measurement (mass/volume)on 10-19-2021 Cholesterol in HDL [Mass/Vol] 31 mg/dL >40 [facility] Work Phone: [phone] Comment on above: The drugs N-Acetylcy steine and Metamizole may falsely depress this assay. Reference Range HDL <40 mg/dL Low HDL Cholesterol HDL >or= 60 mg/dL High HDL Cholesterol Serum or plasma cholesterol in VLDL measurement (mass/volume)on 07-18-2022 Cholesterol in VLDL [Mass/Vol] 79 mg/dL 5-40 [facility] Work Phone: Serum or plasma creatinine m easurement (mass/volume)on 10-19-2021 Creatinine [Mass/Vol] 1.11 mg/dL 0.55-1.02 [facility] Work Phone: Comment on above: The validity of the calculated GFR & GFRAA in patients over 70 years has not been determined. Clinical correlation is essential. Serum or plasma low density lipoprotein (LDL) cholesterol measurement (mass/volume)on 10-19-2021 Cholesterol in LDL [Mass/Vol] 109 mg/dL 0-130 [facility] Work Phone: Serum or plasma urea nitroge n measurement (mass/volume)on 10-19-2021 Urea nitrogen [Mass/Vol] 17 mg/dL 7-18 [facility] Work Phone: Thin prep Papanicolaou smear with manual screeningon 10-19-2021 Thin prep Papanicolaou smear with manual screening 15 U/L 15-37 [facility] Work Phone: Thin prep Papanicolaou smear with manual screening 7 5-15 [facility] Work Phone: Thin prep Papanicolaou smear with manual screening < 5.0 mg/L NO RANGE EST. [facility] Work Phone: Glucose Glucometer (BldC) [M ass/Vol]on 07-20-2021 Glucose [Mass/Vol] 100 mg/dL 74-106 [facility] Work Phone: Comment on above: MANAGEMENT OF PATIEN T CARE PER NURSING PROTOCOL Glucose Glucometer (BldC) [M ass/Vol]on 06-22-2021 Glucose [Mass/Vol] 107 mg/dL 74-106 [facility] Work Phone: Comment on above: MANAGEMENT OF PATIEN T CARE PER NURSING PROTOCOL Glucose Glucometer (BldC) [M ass/Vol]on 05-11-2021 Glucose [Mass/Vol] 87 mg/dL 70-110 [facility] Work Phone: Comment on above: MANAGEMENT OF PATIEN T CARE PER NURSING PROTOCOL Absolute lymphocyte counton 04-15-2021 Lymphocytes Auto (Unsp spec) [#/Vol] 1.97 10*3/uL 0.83-4.51 [facility] Work Phone: Basophil percentageon 2021 Basophils/100 WBC (Bld) 0.6 % 0-1 [facility] Work Phone: Bilirubin [Mass/Vol] 0.50 mg/dL 0.20-1.00 [facility] Work Phone: Comment on above: For patients on eltr ombopag therapy, use of Dimension [place] TBIL is not recommended. Chloride [Moles/Vol] 106 mmol/L 98-107 [facility] Work Phone: Eosinophils/100 WBC (Bld) 3.2 % 0-5 [facility] Work Phone: Glucose [Mass/Vol] 92 mg/dL 74-106 [facility] Work Phone: Comment on above: Please note revised GLUCOSE reference range effective 2017. Neutrophils (Bld) [#/Vol] 5.6 10*3/uL 2.0-7.7 [facility] Work Phone: Neutrophils/100 WBC (Bld) 64.8 % 47-70 [facility] Work Phone: Potassium [Moles/Vol] 4.4 mmol/L 3.5-5.1 [facility] Work Phone: Protein [Mass/Vol] 7.8 g/dL 6.4-8.2 [facility] Work Phone: Sodium [Moles/Vol] 137 mmol/L 136-145 [facility] Work Phone: WBC (Bld) [#/Vol] 8.6 10*3/uL 4.4-11.0 [facility] Work Phone: Blood erythrocytes count (nu mber/volume)on 04-15-2021 RBC (Bld) [#/Vol] 4.22 10*6/uL 4.2-5.4 [facility] Work Phone: Blood hemoglobin measurement (mass/volume)on 04-15-2021 Hemoglobin (Bld) [Mass/Vol] 12.0 g/dL 12.0-15.0 [facility] Work Phone: Blood lymphocytes/100 leukoc yteson 04-15-2021 Lymphocytes/100 WBC (Bld) 23.0 % 19-41 [facility] Work Phone: [phone] Blood monocytes/100 leukocyt eson 04-15-2021 Monocytes/100 WBC (Bld) 7.9 % 0-10 [facility] Work Phone: Blood platelet mean volumeon 04-15-2021 Platelet mean volume (Bld) [Entitic vol] 9.5 fL 6.2-12.0 [facility] Work Phone: [phone] Determination of erythrocyte mean corpuscular volume (MCV)on 04-15-2021 MCV (RBC) [Entitic vol] 89.1 fL 81-99 [facility] Work Phone: Hematocrit Auto (Bld) [Volum e fraction]on 04-15-2021 Hematocrit (Bld) [Volume fraction] 37.6 % 37-47 [facility] Work Phone: INR in Blood by Coagulation assayon 04-15-2021 INR Coag (Bld) [Relative time] 1.1 {INR} [facility] Work Phone: Laboratory - Chemistry and C hemistry - challengeon 04-15-2021 ALP [Catalytic activity/Vol] 136 U/L 45-117 [facility] Work Phone: ALT [Catalytic activity/Vol] 22 U/L 13-56 [facility] Work Phone: [phone] CO2 [Moles/Vol] 22.0 mmol/L 21.0-32.0 [facility] Work Phone: [phone] Globulin (S) [Mass/Vol] 4.0 g/dL 2.2-4.2 [facility] Work Phone: Urea nitrogen/Creatinine [Mass ratio] 15.1 mg/mg 10-20 [facility] Work Phone: Laboratory - Coagulationon 0 04-15-2021 aPTT Coag (Bld) [Time] 37.3 s 24.1-36.2 [facility] jos[facility] Work Phone: PT Coag (PPP) [Time] 13.9 s 11.7-14.9 [facility] Work Phone: Laboratory - Hematology and Cell countson 04-15-2021 Erythrocyte distribution width (RBC) [Entitic vol] 48.7 fL 35.1-43.9 [facility] Work Phone: [phone] Erythrocyte distribution width (RBC) [Ratio] 14.9 % 11.6-14.6 [facility] Work Phone: Immature granulocytes/100 WBC (Bld) 0.500 % 0.0-0.9 [facility] Work Phone: Comment on above: IG% - Immature Granu locytes (promyelocytes, myelocytes and metamyelocytes) > 1% indicates that a LEFT SHIFT is Present. MCH (RBC) [Entitic mass] 28.4 pg 27.0-32.0 [facility] Work Phone: Nucleated RBC/100 WBC (Bld) [Ratio] 0 % 0-5 [facility] Work Phone: MCHC Auto (RBC) [Mass/Vol]on 04-15-2021 MCHC (RBC) [Mass/Vol] 31.9 g/dL 32-36 [facility] Work Phone: No Panel Informationon 04-15 D-Dimer Quantitative (PE/DVT) 0.34 FEU/ug/m 0.27-0.49 [facility] Work Phone: Comment on above: NORMAL D-Dimer level (<0.50) indicates no DVT or PE. Estimated GFR (MDRD) Amer 76 mL/min >60 [facility] Work Phone: Comment on above: GFR Calc Estimated GFR (MDRD) Non-Af Amer 63 mL/min >60 [facility] Work Phone: Comment on above: Non- GFR Calc Platelets bldon 04-15-2021 Platelets (Bld) [#/Vol] 325 10*3/uL 150-450 [facility] Work Phone: [phone] Serum or plasma albumin ren urement (mass/volume)on 04-15-2021 Albumin [Mass/Vol] 3.8 g/dL 3.2-5.0 [facility] Work Phone: Serum or plasma albumin/glob ulin mass ratioon 04-15-2021 Albumin/Globulin [Mass ratio] 1.0 {ratio} 0.9-2.4 [facility] Work Phone: Serum or plasma calcium ren urement (mass/volume)on 04-15-2021 Calcium [Mass/Vol] 9.4 mg/dL 8.5-10.1 [facility] Work Phone: Serum or plasma creatinine m easurement (mass/volume)on 04-15-2021 Creatinine [Mass/Vol] 0.93 mg/dL 0.55-1.02 [facility] Work Phone: Comment on above: The validity of the calculated GFR & GFRAA in patients over 70 years has not been determined. Clinical correlation is essential. Serum or plasma urea nitroge n measurement (mass/volume)on 04-15-2021 Urea nitrogen [Mass/Vol] 14 mg/dL 7-18 [facility] Work Phone: Thin prep Papanicolaou smear with manual screeningon 04-15-2021 Thin prep Papanicolaou smear with manual screening 10 U/L 15-37 [facility] Work Phone: [phone] Thin prep Papanicolaou smear with manual screening 9 5-15 [facility] Work Phone: [phone] Thin prep Papanicolaou smear with manual screening 142 U/L 84-246 [facility] Work Phone: Basophil percentageon 2020 Bilirubin [Mass/Vol] 0.20 mg/dL 0.20-1.00 [facility] Work Phone: Comment on above: For patients on eltr ombopag therapy, use of Dimension [place] TBIL is not recommended. Chloride [Moles/Vol] 104 mmol/L 98-107 [facility] Work Phone: Cholesterol [Mass/Vol] 206 mg/dL <200 [facility] Work Phone: Comment on above: <200 mg/dL Desirable 200-240 mg/dL Borderline >240 mg/dL High Risk Glucose [Mass/Vol] 84 mg/dL 74-106 [facility] Work Phone: Comment on above: Please note revised GLUCOSE reference range effective 2017. Potassium [Moles/Vol] 4.5 mmol/L 3.5-5.1 [facility] Work Phone: Protein [Mass/Vol] 7.4 g/dL 6.4-8.2 [facility] Work Phone: Sodium [Moles/Vol] 139 mmol/L 136-145 [facility] Work Phone: Triglyceride [Mass/Vol] 299 mg/dL [facility] Work Phone: Comment on above: The drugs N-Acetylcy steine and Metamizole may falsely depress this assay.Serum Triglycerides Reference Interval Normal <150 mg/dL Borderline high 150 - 199 mg/dL High 200 - 499 mg/dL Very High > or = 500 mg/dL Laboratory - Chemistry and C hemistry - challengeon 03-30-2021 ALP [Catalytic activity/Vol] 126 U/L 45-117 [facility] Work Phone: ALT [Catalytic activity/Vol] 32 U/L 13-56 [facility] Work Phone: CO2 [Moles/Vol] 30.0 mmol/L 21.0-32.0 [facility] Work Phone: Globulin (S) [Mass/Vol] 3.9 g/dL 2.2-4.2 [facility] Work Phone: Urea nitrogen/Creatinine [Mass ratio] 13.8 mg/mg 10-20 [facility] Work Phone: [phone] No Panel Informationon 03-30 Estimated GFR (MDRD) Amer 75 mL/min >60 [facility] Work Phone: Comment on above: GFR Calc Estimated GFR (MDRD) Non-Af Amer 62 mL/min >60 [facility] Work Phone: Comment on above: Non- GFR Calc Serum or plasma albumin ren urement (mass/volume)on 03-30-2021 Albumin [Mass/Vol] 3.5 g/dL 3.2-5.0 [facility] Work Phone: Serum or plasma albumin/glob ulin mass ratioon 03-30-2021 Albumin/Globulin [Mass ratio] 0.9 {ratio} 0.9-2.4 [facility] Work Phone: Serum or plasma calcium ren urement (mass/volume)on 03-30-2021 Calcium [Mass/Vol] 9.0 mg/dL 8.5-10.1 [facility] Work Phone: Serum or plasma cholesterol in HDL measurement (mass/volume)on 03-30-2021 Cholesterol in HDL [Mass/Vol] 31 mg/dL [facility] Work Phone: Comment on above: The drugs N-Acetylcy steine and Metamizole may falsely depress this assay. Reference Range HDL <40 mg/dL Low HDL Cholesterol HDL >or= 60 mg/dL High HDL Cholesterol Serum or plasma cholesterol in VLDL measurement (mass/volume)on 03-30-2021 Cholesterol in VLDL [Mass/Vol] 60 mg/dL 5-40 [facility] Work Phone: Serum or plasma creatinine m easurement (mass/volume)on 03-30-2021 Creatinine [Mass/Vol] 0.94 mg/dL 0.55-1.02 [facility] Work Phone: Comment on above: The validity of the calculated GFR & GFRAA in patients over 70 years has not been determined. Clinical correlation is essential. Serum or plasma low density lipoprotein (LDL) cholesterol measurement (mass/volume)on 03-30-2021 Cholesterol in LDL [Mass/Vol] 115 mg/dL 0-130 [facility] Work Phone: Serum or plasma urea nitroge n measurement (mass/volume)on 03-30-2021 Urea nitrogen [Mass/Vol] 13 mg/dL 7-18 [facility] Work Phone: Thin prep Papanicolaou smear with manual screeningon 03-30-2021 Thin prep Papanicolaou smear with manual screening 15 U/L 15-37 [facility] Work Phone: Thin prep Papanicolaou smear with manual screening 5 5-15 [facility] Work Phone: Thin prep Papanicolaou smear with manual screening 6.2 mg/L NO RANGE EST. [facility] Work Phone: OBSOLETEon 10-31-2020 OBSOLETE Refill (OPHTMN) SILVIA ROSADO ([id number]) 1950 F Date Time Provider Department 10/31/20 FRANCISCO BRUNSON OPHCELENAN During your visit today, we recorded the following information about you: Colleen Fernandes MD 10/31/2020 11:52 AM Signed Refilled PF Allergies As of Date: 10/31/2020 Noted Allergy Reaction ADELICOR [Other] 07/18/2007 2 - Rash HYDROCODONE 12/14/2017 16 - Unknown OXYCODONE 12/14/2017 16 - Unknown Date Reviewed: 05/01/2020 Reviewed by: Jaydon [email or web address] Anita - Fully Assessed Reason for Visit: Refill Request [94] Order(s):prednisoLONE acetate (PRED FORTE, ECONOPRED PLUS) 1 % ophthalmic suspensionINSTILL 1 DROP IN THE LEFT EYE DAILYDisp: 10 mLRfl: 3 Prescriptions as of 10/31/2020 - prednisoLONE acetate (PRED FORTE, ECONOPRED PLUS) 1 % ophthalmic suspension INSTILL 1 DROP IN THE LEFT EYE DAILY - ciprofloxacin HCl (CILOXAN) 0.3 % ophthalmic solution Use 1 Drop in the left eye four times daily. - amLODIPine (NORVASC) 5 mg tablet Take 5 mg by mouth once daily. - atenolol (TENORMIN) 50 mg tablet - cetirizine (ZYRTEC) 10 mg tablet - busPIRone (BUSPAR) 10 mg tablet - DAILY-DMITRI tablet - escitalopram oxalate (LEXAPRO) 10 mg tablet - lisinopril (ZESTRIL, PRINIVIL) 5 mg tablet - metFORMIN (GLUCOPHAGE) 500 mg tablet - QUEtiapine (SEROQUEL) 400 mg tablet - tiZANidine (ZANAFLEX) 4 mg tablet - doxepin capsule 75 mg TAKE 1 CAPSULE AT BEDTIME - MULTIVIT-MINERALS/VIDAL US FUM (MULTI VITAMIN ORAL) Take by mouth. - diclofenac, EC, (VOLTAREN) 75 mg EC tablet Take 75 mg by mouth twice daily. - buPROPion XL (WELLBUTRIN XL) 300 mg 24 hr tablet Take 300 mg by mouth once daily. - docusate sodium (COLACE) 100 mg capsule Take 100 mg by mouth twice daily. - BISACODYL ORAL Take 10 mg by mouth once daily. - traMADol (ULTRAM) 50 mg tablet Take 50 mg by mouth twice daily. - traZODone (DESYREL) 150 mg tablet Take 300 mg by mouth daily at bedtime. - perphenazine 8 mg tablet Take 8 mg by mouth once daily. - tiZANidine HCl 4 mg capsule Take 4 mg by mouth three times daily as needed. - gabapentin (NEURONTIN) 600 mg tablet Take 600 mg by mouth four times daily. - metformin hcl(GLUCOPHAGE XR 500 MG 24 HR TAB) Take one(1) tablet two(2) times daily. - docusate sodium(COL-RITE 100 MG CAP) Take one(1) tablet daily. 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]02/01/2019 Prescriptions ordered this encounter Disp Refills Start End PREDNISOLONE ACETATE 1 % EYE DROPS,S* 10 mL 3 10/31/2020 Cmt: Maximum Refills Reached Sig: INSTILL 1 DROP IN THE LEFT EYE DAILY Medications Discontinued During This Encounter Prescriptions - prednisoLONE acetate (PRED FORTE, ECONOPRED PLUS) 1 % ophthalmic suspension (Discontinued) INSTILL 1 DROP IN THE LEFT EYE DAILY Encounter Status:Closed by COLLEEN FERNANDES on 10/31/20 [facility] [place] OBSOLETEon 09-09-2020 OBSOLETE Refill (OPHTMN) SILVIA ROSADO ([id number]) 1950 F Date Time Provider Department 09/09/20 FRANCISCO BRUNSON OPHTMN During your visit today, we recorded the following information about you: Allergies As of Date: 09/09/2020 Noted Allergy Reaction ADELICOR [Other] 07/18/2007 2 - Rash HYDROCODONE 12/14/2017 16 - Unknown OXYCODONE 12/14/2017 16 - Unknown Date Reviewed: 05/01/2020 Reviewed by: Jaydon Carpio) Anita - Fully Assessed Reason for Visit: Refill Request [94] Order(s):prednisoLONE acetate (PRED FORTE, ECONOPRED PLUS) 1 % ophthalmic suspensionINSTILL 1 DROP IN THE LEFT EYE DAILYDisp: 10 mLRfl: 1 Prescriptions as of 09/09/2020 Sig: PREDNISOLONE ACETATE 1 % EYE * INSTILL 1 DROP IN THE LEFT EY* CIPROFLOXACIN 0.3 % EYE DROPS Use 1 Drop in the left eye fo* AMLODIPINE 5 MG TABLET Take 5 mg by mouth once daily. ATENOLOL 50 MG TABLET CETIRIZINE 10 MG TABLET BUSPIRONE 10 MG TABLET DAILY-DMITRI TABLET ESCITALOPRAM 10 MG TABLET LISINOPRIL 5 MG TABLET METFORMIN 500 MG TABLET QUETIAPINE 400 MG TABLET TIZANIDINE 4 MG TABLET DOXEPIN 75 MG CAPSULE TAKE 1 CAPSULE AT BEDTIME MULTI VITAMIN ORAL Take by mouth. DICLOFENAC SODIUM 75 MG TABLE* Take 75 mg by mouth twice layo* BUPROPION XL 300 MG 24 HR TAB Take 300 mg by mouth once layo* DOCUSATE SODIUM 100 MG CAPSULE Take 100 mg by mouth twice da* BISACODYL ORAL Take 10 mg by mouth once trip* TRAMADOL 50 MG TABLET Take 50 mg by mouth twice layo* TRAZODONE 150 MG TABLET Take 300 mg by mouth daily at* PERPHENAZINE 8 MG TABLET Take 8 mg by mouth once daily. TIZANIDINE 4 MG CAPSULE Take 4 mg by mouth three time* GABAPENTIN 600 MG TABLET Take 600 mg by mouth four gino* GLUCOPHAGE XR 500 MG TABLET,E* Take one(1) tablet two(2) gino* COL-RITE 100 MG CAPSULE Take one(1) tablet daily. 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]02/01/2019 Prescriptions ordered this encounter Disp Refills Start End PREDNISOLONE ACETATE 1 % EYE DROPS,S* 10 mL 1 09/10/2020 Cmt: Maximum Refills Reached Sig: INSTILL 1 DROP IN THE LEFT EYE DAILY Medications Discontinued During This Encounter Prescriptions - prednisoLONE acetate (PRED FORTE, ECONOPRED PLUS) 1 % ophthalmic suspension (Discontinued) INSTILL 1 DROP IN THE LEFT EYE DAILY Encounter Status:Closed by FRANCISCO BRUNSON on 09/10/20 [facility] [place] OBSOLETEon 08-08-2020 OBSOLETE Refill (OPHTMN) SILVIA ROSADO ([id number]) 1950 F Date Time Provider Department 08/08/20 FRANCISCO BRUNSON During your visit today, we recorded the following information about you: Allergies As of Date: 08/08/2020 Noted Allergy Reaction ADELICOR [Other] 07/18/2007 2 - Rash HYDROCODONE 12/14/2017 16 - Unknown OXYCODONE 12/14/2017 16 - Unknown Date Reviewed: 05/01/2020 Reviewed by: Jaydon ([employer]) Anita - Fully Assessed Reason for Visit: Refill Request [94] Order(s):prednisoLONE acetate (PRED FORTE, ECONOPRED PLUS) 1 % ophthalmic suspensionINSTILL 1 DROP IN THE LEFT EYE DAILYDisp: 10 mLRfl: 1 Prescriptions as of 08/08/2020 Sig: PREDNISOLONE ACETATE 1 % EYE * INSTILL 1 DROP IN THE LEFT EY* CIPROFLOXACIN 0.3 % EYE DROPS Use 1 Drop in the left eye fo* AMLODIPINE 5 MG TABLET Take 5 mg by mouth once daily. ATENOLOL 50 MG TABLET CETIRIZINE 10 MG TABLET BUSPIRONE 10 MG TABLET DAILY-DMITRI TABLET ESCITALOPRAM 10 MG TABLET LISINOPRIL 5 MG TABLET METFORMIN 500 MG TABLET QUETIAPINE 400 MG TABLET TIZANIDINE 4 MG TABLET DOXEPIN 75 MG CAPSULE TAKE 1 CAPSULE AT BEDTIME MULTI VITAMIN ORAL Take by mouth. DICLOFENAC SODIUM 75 MG TABLE* Take 75 mg by mouth twice layo* BUPROPION XL 300 MG 24 HR TAB Take 300 mg by mouth once layo* DOCUSATE SODIUM 100 MG CAPSULE Take 100 mg by mouth twice da* BISACODYL ORAL Take 10 mg by mouth once trip* TRAMADOL 50 MG TABLET Take 50 mg by mouth twice layo* TRAZODONE 150 MG TABLET Take 300 mg by mouth daily at* PERPHENAZINE 8 MG TABLET Take 8 mg by mouth once daily. TIZANIDINE 4 MG CAPSULE Take 4 mg by mouth three time* GABAPENTIN 600 MG TABLET Take 600 mg by mouth four gino* GLUCOPHAGE XR 500 MG TABLET,E* Take one(1) tablet two(2) gino* COL-RITE 100 MG CAPSULE Take one(1) tablet daily. 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 Encounter Status:Closed by FRANCISCO BRUNSON on 08/08/20 Normal [facility] Vital Signs Date Time Vital Sign Value Performing Clinician Desirae anna 12-17-2024 13:23-0400 Body temperature 97.1 [degF] Dr. Bernie Jovel DO Work Phone: [facility] 12-17-2024 13:23-0400 Diastolic blood pressure 71 mm[Hg] Dr. Bernie Jovel DO Work Phone: [facility] 12-17-2024 13:23-0400 Heart rate 55 /min Dr. Bernie Jovel DO Work Phone: [facility] 12-17-2024 13:23-0400 Respiratory rate 16 /min Dr. Bernie Jovel DO Work Phone: [facility] 12-17-2024 13:23-0400 SaO2% (BldA) [Mass fraction] 94 % Dr. Bernie Jovel DO Work Phone: [facility] 12-17-2024 13:23-0400 Systolic blood pressure 120 mm[Hg] Dr. Bernie Jovel DO Work Phone: [facility] 12-17-2024 11:50-0400 Body height 160.[address] Bernie Jovel DO Work Phone: [facility] 12-17-2024 11:50-0400 Body mass index (BMI) [Ratio] 45.3 kg/m2 Dr. Bernie Jovel DO Work Phone: [facility] 12-17-2024 11:50-0400 Body weight 116.[address] Bernie Jovel DO Work Phone: [facility] 09-12-2024 12:38-0400 Body mass index (BMI) [Ratio] 43.9 kg/m2 Dr. Bernie Jovel DO Work Phone: [facility] 09-12-2024 12:38-0400 Body weight 112.[address] Bernie Jovel DO Work Phone: [facility] 09-12-2024 12:38-0400 Diastolic blood pressure 54 mm[Hg] Dr. Bernie Jovel DO Work Phone: [facility] 09-12-2024 12:38-0400 Heart rate 55 /min Dr. Bernie Jovel DO Work Phone: [facility] 09-12-2024 12:38-0400 Respiratory rate 18 /min Dr. Bernie Jovel DO Work Phone: [facility] 09-12-2024 12:38-0400 Systolic blood pressure 96 mm[Hg] Dr. Bernie Jovel DO Work Phone: [facility] 09-03-2024 10:33-0400 Body temperature 98 [degF] Dr. Bernie Jovel DO Work Phone: [facility] 09-03-2024 10:33-0400 Diastolic blood pressure 78 mm[Hg] Dr. Bernie Jovel DO Work Phone: [facility] 09-03-2024 10:33-0400 Heart rate 58 /min Dr. Bernie Jovel DO Work Phone: [facility] 09-03-2024 10:33-0400 Respiratory rate 16 /min Dr. Bernie Jovel DO Work Phone: [facility] 09-03-2024 10:33-0400 SaO2% (BldA) [Mass fraction] 97 % Dr. Bernie Jovel DO Work Phone: [facility] 09-03-2024 10:33-0400 Systolic blood pressure 108 mm[Hg] Dr. Bernie Jovel DO Work Phone: [facility] 09-03-2024 09:24-0400 Body height 160.[address] Bernie Jovel DO Work Phone: [facility] 09-03-2024 09:24-0400 Body mass index (BMI) [Ratio] 44.5 kg/m2 Dr. Bernie Jovel DO Work Phone: [facility] 09-03-2024 09:24-0400 Body weight [address] Bernie Jovel DO Work Phone: [facility] 07-31-2024 08:00-0400 Body mass index (BMI) [Ratio] 43.7 kg/m2 Dr. Bernie Jovel DO Work Phone: [facility] 07-31-2024 08:00-0400 Body temperature 97.3 [degF] Dr. Bernie Jovel DO Work Phone: [facility] 07-31-2024 08:00-0400 Body weight 115.[address] Bernie Jovel DO Work Phone: [facility] 07-31-2024 08:00-0400 Diastolic blood pressure 54 mm[Hg] Dr. Bernie Jovel DO Work Phone: [facility] 07-31-2024 08:00-0400 Heart rate 64 /min Dr. Bernie Jovel DO Work Phone: [facility] 07-31-2024 08:00-0400 Respiratory rate 20 /min Dr. Bernie Jovel DO Work Phone: [facility] 07-31-2024 08:00-0400 SaO2% (BldA) [Mass fraction] 93 % Dr. Bernie Jovel DO Work Phone: [facility] 07-31-2024 08:00-0400 Systolic blood pressure 110 mm[Hg] Dr. Bernie Jovel DO Work Phone: [facility] 06-18-2024 11:55-0400 Body temperature 96.5 [degF] Dr. Bernie Jovel DO Work Phone: [facility] 06-18-2024 11:55-0400 Diastolic blood pressure 56 mm[Hg] Dr. Bernie Jovel DO Work Phone: [facility] 06-18-2024 11:55-0400 Heart rate 69 /min Dr. Bernie Jovel DO Work Phone: [facility] 06-18-2024 11:55-0400 Respiratory rate 16 /min Dr. Bernie Jovel DO Work Phone: [facility] 06-18-2024 11:55-0400 SaO2% (BldA) [Mass fraction] 92 % Dr. Bernie Jovel DO Work Phone: [facility] 06-18-2024 11:55-0400 Systolic blood pressure 95 mm[Hg] Dr. Bernie Jovel DO Work Phone: [facility] 06-18-2024 11:04-0400 Body height 162.[address] Bernie Jovel DO Work Phone: [facility] 06-18-2024 11:04-0400 Body mass index (BMI) [Ratio] 44.3 kg/m2 Dr. Bernie Jovel DO Work Phone: [facility] 06-18-2024 11:04-0400 Body weight 117.[address] Bernie Jovel DO Work Phone: [facility] 05-01-2024 13:06-0500 Body weight 115.[address] Bernie Jovel DO Work Phone: [facility] 05-01-2024 13:06-0500 Heart rate 74 /min Dr. Bernie Jovel DO Work Phone: [facility] 05-01-2024 13:06-0500 SaO2% (BldA) [Mass fraction] 93 % Dr. Bernie Jovel DO Work Phone: [facility] 04-09-2024 10:25-0500 Body temperature 97.9 [degF] Dr. Bernie Jovel DO Work Phone: [facility] 04-09-2024 10:25-0500 Diastolic blood pressure 53 mm[Hg] Dr. Bernie Jovel DO Work Phone: [facility] 04-09-2024 10:25-0500 Heart rate 52 /min Dr. Bernie Jovel DO Work Phone: [facility] 04-09-2024 10:25-0500 Respiratory rate 15 /min Dr. Bernie Jovel DO Work Phone: [facility] 04-09-2024 10:25-0500 SaO2% (BldA) [Mass fraction] 93 % Dr. Bernie Jovel DO Work Phone: [facility] 04-09-2024 10:25-0500 Systolic blood pressure 93 mm[Hg] Dr. Bernie Jovel DO Work Phone: [facility] 04-09-2024 08:44-0500 Body mass index (BMI) [Ratio] 44.1 kg/m2 Dr. Bernie Jovel DO Work Phone: [facility] 04-09-2024 08:44-0500 Body weight 116.[address] Bernie Jovel DO Work Phone: [facility] 08-08-2023 12:30-0400 Body temperature 99 [degF] [facility] 08-08-2023 12:30-0400 Diastolic blood pressure 54 mm[Hg] [facility] 08-08-2023 12:30-0400 Heart rate 71 /min [facility] 08-08-2023 12:30-0400 Respiratory rate 16 /min [facility] 08-08-2023 12:30-0400 SaO2% (BldA) [Mass fraction] 94 % [facility] 08-08-2023 12:30-0400 Systolic blood pressure 93 mm[Hg] [facility] 08-08-2023 11:08-0400 Body height 160.02 cm [facility] 08-08-2023 11:08-0400 Body mass index (BMI) [Ratio] 45.6 kg/m2 [facility] 08-08-2023 11:08-0400 Body weight 117 kg [facility] 06-19-2023 12:21-0400 Body temperature 98.2 [degF] [facility] 06-19-2023 12:21-0400 Diastolic blood pressure 77 mm[Hg] [facility] 06-19-2023 12:21-0400 Heart rate 87 /min [facility] 06-19-2023 12:21-0400 Respiratory rate 16 /min [facility] 06-19-2023 12:21-0400 SaO2% (BldA) [Mass fraction] 99 % [facility] 06-19-2023 12:21-0400 Systolic blood pressure 116 mm[Hg] [facility] 06-19-2023 11:35-0400 Body height 160.02 cm [facility] 06-19-2023 11:35-0400 Body mass index (BMI) [Ratio] 44.4 kg/m2 [facility] 06-19-2023 11:35-0400 Body weight 113.9 kg [facility] 06-14-2023 13:23-0400 Body temperature 98.9 [degF] [facility] 06-14-2023 13:23-0400 Diastolic blood pressure 76 mm[Hg] [facility] 06-14-2023 13:23-0400 Heart rate 64 /min [facility] 06-14-2023 13:23-0400 Respiratory rate 18 /min [facility] 06-14-2023 13:23-0400 SaO2% (BldA) [Mass fraction] 99 % [facility] 06-14-2023 13:23-0400 Systolic blood pressure 134 mm[Hg] [facility] 06-14-2023 11:25-0400 Body height 160.02 cm [facility] 06-14-2023 11:25-0400 Body mass index (BMI) [Ratio] 46.2 kg/m2 [facility] 06-14-2023 11:25-0400 Body weight 118.38 kg [facility] 05-23-2023 08:43-0500 Body temperature 98.5 [degF] Dr. Bernie Jovel Work Phone: [facility] 05-23-2023 08:43-0500 Diastolic blood pressure 72 mm[Hg] Dr. Bernie Jovel Work Phone: [facility] 05-23-2023 08:43-0500 Heart rate 73 /min Dr. Bernie Jovel Work Phone: [facility] 05-23-2023 08:43-0500 Respiratory rate 18 /min Dr. Bernie Jovel Work Phone: [facility] 05-23-2023 08:43-0500 SaO2% (BldA) [Mass fraction] 97 % Dr. Bernie Jovel Work Phone: [facility] 05-23-2023 08:43-0500 Systolic blood pressure 112 mm[Hg] Dr. Bernie Jovel Work Phone: [facility] 05-23-2023 06:38-0500 Body height 162.[address] Bernie Jovel Work Phone: [facility] 05-23-2023 06:38-0500 Body mass index (BMI) [Ratio] 44.7 kg/m2 Dr. Bernie Jovel Work Phone: [facility] 05-23-2023 06:38-0500 Body weight 118.[address] Bernie Jovel Work Phone: [facility] 02-03-2023 10:33-0400 Body mass index (BMI) [Ratio] 46.3 kg/m2 Dr. Bernie Jovel Work Phone: [facility] 02-03-2023 10:33-0400 Body temperature 96.3 [degF] Dr. Bernie Jovel Work Phone: [facility] 02-03-2023 10:33-0400 Body weight 122.[address] Bernie Jovel Work Phone: [facility] 02-03-2023 10:33-0400 Diastolic blood pressure 74 mm[Hg] Dr. Bernie Jovel Work Phone: [facility] 02-03-2023 10:33-0400 Heart rate 58 /min Dr. Bernie Jovel Work Phone: [facility] 02-03-2023 10:33-0400 Respiratory rate 22 /min Dr. Bernie Jovel Work Phone: [facility] 02-03-2023 10:33-0400 SaO2% (BldA) [Mass fraction] 93 % Dr. Bernie Jovel Work Phone: [facility] 02-03-2023 10:33-0400 Systolic blood pressure 122 mm[Hg] Dr. Bernie Jovel Work Phone: [facility] 12-25-2022 19:05-0400 Body temperature 98.8 [degF] Dr. Bernie Jovel Work Phone: [facility] 12-25-2022 19:05-0400 Diastolic blood pressure 71 mm[Hg] Dr. Bernie Jovel Work Phone: [facility] 12-25-2022 19:05-0400 Heart rate 65 /min Dr. Bernie Jovel Work Phone: [facility] 12-25-2022 19:05-0400 Respiratory rate 18 /min Dr. Bernie Jovel Work Phone: [facility] 12-25-2022 19:05-0400 SaO2% (BldA) [Mass fraction] 99 % Dr. Bernie Jovel Work Phone: [facility] 12-25-2022 19:05-0400 Systolic blood pressure 139 mm[Hg] Dr. Bernie Jovel Work Phone: [facility] 12-25-2022 16:06-0400 Body mass index (BMI) [Ratio] 45.6 kg/m2 [facility] 12-25-2022 16:06-0400 Body temperature 97.4 [degF] [facility] 12-25-2022 16:06-0400 Body weight 120.65 kg [facility] 12-25-2022 16:06-0400 Diastolic blood pressure 68 mm[Hg] [facility] 12-25-2022 16:06-0400 Heart rate 88 /min [facility] 12-25-2022 16:06-0400 Respiratory rate 18 /min [facility] 12-25-2022 16:06-0400 Systolic blood pressure 138 mm[Hg] [facility] 12-25-2022 14:16-0400 Body height 162.56 cm [facility] 12-25-2022 14:16-0400 SaO2% (BldA) [Mass fraction] 97 % [facility] 12-20-2022 11:40-0400 Body temperature 97.9 [degF] [facility] 12-20-2022 11:40-0400 Diastolic blood pressure 73 mm[Hg] [facility] 12-20-2022 11:40-0400 Heart rate 71 /min [facility] 12-20-2022 11:40-0400 Respiratory rate 16 /min [facility] 12-20-2022 11:40-0400 SaO2% (BldA) [Mass fraction] 99 % [facility] 12-20-2022 11:40-0400 Systolic blood pressure 121 mm[Hg] [facility] 12-20-2022 10:15-0400 Body height 162.56 cm [facility] 12-20-2022 10:15-0400 Body mass index (BMI) [Ratio] 45.7 kg/m2 [facility] 12-20-2022 10:15-0400 Body weight 120.9 kg [facility] 07-19-2022 13:42-0400 Body temperature 98.1 [degF] Dr. Bernie Jovel Work Phone: [facility] 07-19-2022 13:42-0400 Diastolic blood pressure 54 mm[Hg] Dr. Bernie Jovel Work Phone: [facility] 07-19-2022 13:42-0400 Heart rate 66 /min Dr. Bernie Jovel Work Phone: [facility] 07-19-2022 13:42-0400 Respiratory rate 16 /min Dr. Bernie Jovel Work Phone: [facility] 07-19-2022 13:42-0400 SaO2% (BldA) [Mass fraction] 96 % Dr. Bernie Jovel Work Phone: [facility] 07-19-2022 13:42-0400 Systolic blood pressure 102 mm[Hg] Dr. Bernie Jovel Work Phone: [facility] 07-19-2022 12:15-0400 Body height 162.[address] Bernie Jovel Work Phone: [facility] 07-19-2022 12:15-0400 Body mass index (BMI) [Ratio] 47 kg/m2 Dr. Bernie Jovel Work Phone: [facility] 07-19-2022 12:15-0400 Body weight 124.[address] Bernie Jovel Work Phone: [facility] 06-10-2022 10:23-0500 Body height 162.[address] Bernie Jovel Work Phone: [facility] 06-10-2022 10:23-0500 Body mass index (BMI) [Ratio] 46.5 kg/m2 Dr. Bernie Jovel Work Phone: [facility] 06-10-2022 10:23-0500 Body weight 122.[address] Bernie Jovel Work Phone: [facility] 06-10-2022 10:23-0500 Diastolic blood pressure 80 mm[Hg] Dr. Bernie Jovel Work Phone: [facility] 06-10-2022 10:23-0500 Heart rate 73 /min Dr. Bernie Jovel Work Phone: [facility] 06-10-2022 10:23-0500 Respiratory rate 22 /min Dr. Bernie Jovel Work Phone: [facility] 06-10-2022 10:23-0500 SaO2% (BldA) [Mass fraction] 94 % Dr. Bernie Jovel Work Phone: [facility] 06-10-2022 10:23-0500 Systolic blood pressure 132 mm[Hg] Dr. Bernie Jovel Work Phone: [facility] 05-31-2022 08:20-0500 Body height 162.[address] Bernie Jovel Work Phone: [facility] 05-31-2022 08:20-0500 Body mass index (BMI) [Ratio] 46.5 kg/m2 Dr. Bernie Jovel Work Phone: [facility] 05-31-2022 08:20-0500 Body temperature 97.2 [degF] Dr. Bernie Jovel Work Phone: [facility] 05-31-2022 08:20-0500 Body weight 122.[address] Bernie Jovel Work Phone: [facility] 05-31-2022 08:20-0500 Diastolic blood pressure 71 mm[Hg] Dr. Bernie Jovel Work Phone: [facility] 05-31-2022 08:20-0500 Heart rate 76 /min Dr. Bernie Jovel Work Phone: [facility] 05-31-2022 08:20-0500 Respiratory rate 20 /min Dr. Bernie Jovel Work Phone: [facility] 05-31-2022 08:20-0500 SaO2% (BldA) [Mass fraction] 96 % Dr. Bernie Jovel Work Phone: [facility] 05-31-2022 08:20-0500 Systolic blood pressure 129 mm[Hg] Dr. Bernie Jovel Work Phone: [facility] 05-24-2022 08:45-0500 Body temperature 97.2 [degF] [facility] 05-24-2022 08:45-0500 Diastolic blood pressure 86 mm[Hg] [facility] 05-24-2022 08:45-0500 Heart rate 68 /min [facility] 05-24-2022 08:45-0500 Respiratory rate 16 /min [facility] 05-24-2022 08:45-0500 SaO2% (BldA) [Mass fraction] 94 % [facility] 05-24-2022 08:45-0500 Systolic blood pressure 106 mm[Hg] [facility] 05-24-2022 06:51-0500 Body height 162.56 cm [facility] 05-24-2022 06:51-0500 Body mass index (BMI) [Ratio] 47.2 kg/m2 [facility] 05-24-2022 06:51-0500 Body weight 124.8 kg [facility] 01-04-2022 10:49-0400 Body temperature 97.3 [degF] Dr. Bernie Jovel Work Phone: [facility] Work Phone: 01-04-2022 10:49-0400 Diastolic blood pressure 69 mm[Hg] Dr. Bernie Jovel Work Phone: [facility] Work Phone: 01-04-2022 10:49-0400 Heart rate 63 /min Dr. Bernie Jovel Work Phone: [facility] Work Phone: 01-04-2022 10:49-0400 Respiratory rate 16 /min Dr. Bernie Jovel Work Phone: [facility] Work Phone: 01-04-2022 10:49-0400 SaO2% (BldA) [Mass fraction] 96 % Dr. Bernie Jovel Work Phone: [facility] Work Phone: 01-04-2022 10:49-0400 Systolic blood pressure 125 mm[Hg] Dr. Bernie Jovel Work Phone: [facility] Work Phone: 01-04-2022 09:07-0400 Body height 162.[address] Bernie Jovel Work Phone: [facility] Work Phone: 01-04-2022 09:07-0400 Body mass index (BMI) [Ratio] 45.5 kg/m2 Dr. Bernie Jovel Work Phone: [facility] Work Phone: 01-04-2022 09:07-0400 Body weight 120.[address] Bernie Jovel Work Phone: [facility] Work Phone: 11-16-2021 10:46-0400 Body temperature 98.3 [degF] Dr. Bernie Jovel Work Phone: [facility] Work Phone: 11-16-2021 10:46-0400 Diastolic blood pressure 69 mm[Hg] Dr. Bernie Jovel Work Phone: [facility] Work Phone: 11-16-2021 10:46-0400 Heart rate 64 /min Dr. Bernie Jovel Work Phone: [facility] Work Phone: 11-16-2021 10:46-0400 Respiratory rate 16 /min Dr. Bernie Jovel Work Phone: [facility] Work Phone: 11-16-2021 10:46-0400 SaO2% (BldA) [Mass fraction] 98 % Dr. Bernie Jovel Work Phone: [facility] Work Phone: 11-16-2021 10:46-0400 Systolic blood pressure 106 mm[Hg] Dr. Bernie Jovel Work Phone: [facility] Work Phone: 11-16-2021 08:31-0400 Body height 162.[address] Bernie Jovel Work Phone: [facility] Work Phone: 11-16-2021 08:31-0400 Body mass index (BMI) [Ratio] 44.6 kg/m2 Dr. Bernie Jovel Work Phone: [facility] Work Phone: 11-16-2021 08:31-0400 Body weight 117.[address] Bernie Jovel Work Phone: [facility] Work Phone: 10-28-2021 09:38-0400 Body height 162.[address] Bernie Jovel Work Phone: [facility] Work Phone: 10-28-2021 09:38-0400 Body mass index (BMI) [Ratio] 44.6 kg/m2 Dr. Bernie Jovel Work Phone: [facility] Work Phone: 10-28-2021 09:38-0400 Body weight 118.[address] Bernie Jovel Work Phone: [facility] Work Phone: 10-28-2021 09:38-0400 Diastolic blood pressure 71 mm[Hg] Dr. Bernie Jovel Work Phone: [facility] Work Phone: 10-28-2021 09:38-0400 Heart rate 57 /min Dr. Bernie Jovel Work Phone: [facility] Work Phone: 10-28-2021 09:38-0400 Systolic blood pressure 131 mm[Hg] Dr. Bernie Jovel Work Phone: [facility] Work Phone: 10-27-2021 10:17-0400 Body mass index (BMI) [Ratio] 44.9 kg/m2 Dr. Bernie Jovel Work Phone: [facility] Work Phone: 10-27-2021 10:17-0400 Body temperature 98.6 [degF] Dr. Bernie Jovel Work Phone: [facility] Work Phone: 10-27-2021 10:17-0400 Body weight 118.[address] Bernie Jovel Work Phone: [facility] Work Phone: 10-27-2021 10:17-0400 Diastolic blood pressure 75 mm[Hg] Dr. Bernie Jovel Work Phone: [facility] Work Phone: 10-27-2021 10:17-0400 Heart rate 62 /min Dr. Bernie Jovel Work Phone: [facility] Work Phone: 10-27-2021 10:17-0400 SaO2% (BldA) [Mass fraction] 97 % Dr. Bernie Jovel Work Phone: [facility] Work Phone: 10-27-2021 10:17-0400 Systolic blood pressure 128 mm[Hg] Dr. Bernie Jovel Work Phone: [facility] Work Phone: 07-20-2021 10:55-0400 Body temperature 97.6 [degF] Dr. Bernie Jovel Work Phone: [facility] Work Phone: 07-20-2021 10:55-0400 Diastolic blood pressure 76 mm[Hg] Dr. Bernie Jovel Work Phone: [facility] Work Phone: 07-20-2021 10:55-0400 Heart rate 64 /min Dr. Bernie Jovel Work Phone: [facility] Work Phone: 07-20-2021 10:55-0400 Respiratory rate 16 /min Dr. Bernie Jovel Work Phone: [facility] Work Phone: 07-20-2021 10:55-0400 SaO2% (BldA) [Mass fraction] 100 % Dr. Bernie Jovel Work Phone: [facility] Work Phone: 07-20-2021 10:55-0400 Systolic blood pressure 136 mm[Hg] Dr. Bernie Jovel Work Phone: [facility] Work Phone: 07-20-2021 09:32-0400 Body height 162.[address] Bernie Jovel Work Phone: [facility] Work Phone: 07-20-2021 09:32-0400 Body mass index (BMI) [Ratio] 44.1 kg/m2 Dr. Bernie Jovel Work Phone: [facility] Work Phone: 07-20-2021 09:32-0400 Body weight 116.[address] Bernie Jovel Work Phone: [facility] Work Phone: 06-23-2021 11:02-0400 Body mass index (BMI) [Ratio] 44.2 kg/m2 Dr. Bernie Jovel Work Phone: [facility] Work Phone: 06-23-2021 11:02-0400 Body temperature 98.6 [degF] Dr. Bernie Jovel Work Phone: [facility] Work Phone: 06-23-2021 11:02-0400 Body weight 113.[address] Bernie Jovel Work Phone: [facility] Work Phone: 06-23-2021 11:02-0400 Diastolic blood pressure 78 mm[Hg] Dr. Bernie Jovel Work Phone: [facility] Work Phone: 06-23-2021 11:02-0400 Heart rate 64 /min Dr. Bernie Jovel Work Phone: [facility] Work Phone: 06-23-2021 11:02-0400 Respiratory rate 18 /min Dr. Bernie Jovel Work Phone: [facility] Work Phone: 06-23-2021 11:02-0400 SaO2% (BldA) [Mass fraction] 96 % Dr. Bernie Jovel Work Phone: [facility] Work Phone: 06-23-2021 11:02-0400 Systolic blood pressure 140 mm[Hg] Dr. Bernie Jovel Work Phone: [facility] Work Phone: 06-22-2021 09:16-0400 Body temperature 99.3 [degF] Dr. Bernie Jovel Work Phone: [facility] Work Phone: 06-22-2021 09:16-0400 Diastolic blood pressure 79 mm[Hg] Dr. Bernie Jovel Work Phone: [facility] Work Phone: 06-22-2021 09:16-0400 Heart rate 64 /min Dr. Bernie Jovel Work Phone: [facility] Work Phone: 06-22-2021 09:16-0400 Respiratory rate 16 /min Dr. Bernie Jovel Work Phone: [facility] Work Phone: 06-22-2021 09:16-0400 SaO2% (BldA) [Mass fraction] 98 % Dr. Bernie Jovel Work Phone: [facility] Work Phone: 06-22-2021 09:16-0400 Systolic blood pressure 138 mm[Hg] Dr. Bernie Jovel Work Phone: [facility] Work Phone: 06-22-2021 07:27-0400 Body mass index (BMI) [Ratio] 44.6 kg/m2 Dr. Bernie Jovel Work Phone: [facility] Work Phone: 06-22-2021 07:27-0400 Body weight 114.[address] Bernie Jovel Work Phone: [facility] Work Phone: 05-11-2021 09:55-0500 Body temperature 97.1 [degF] Dr. Bernie Jovel Work Phone: [facility] Work Phone: 05-11-2021 09:55-0500 Diastolic blood pressure 74 mm[Hg] Dr. Bernie Jovel Work Phone: [facility] Work Phone: 05-11-2021 09:55-0500 Heart rate 65 /min Dr. Bernie Jovel Work Phone: [facility] Work Phone: 05-11-2021 09:55-0500 Respiratory rate 16 /min Dr. Bernie Jovel Work Phone: [facility] Work Phone: 05-11-2021 09:55-0500 SaO2% (BldA) [Mass fraction] 96 % Dr. Bernie Jovel Work Phone: [facility] Work Phone: 05-11-2021 09:55-0500 Systolic blood pressure 112 mm[Hg] Dr. Bernie Jovel Work Phone: [facility] Work Phone: 05-11-2021 08:20-0500 Body mass index (BMI) [Ratio] 43.6 kg/m2 Dr. Bernie Jovel Work Phone: [facility] Work Phone: 05-11-2021 08:20-0500 Body weight 111.[address] Bernie Jovel Work Phone: [facility] Work Phone: 04-24-2021 08:18-0500 Body weight 113.[address] Bernie Jovel Work Phone: [facility] Work Phone: 04-24-2021 08:18-0500 Diastolic blood pressure 72 mm[Hg] Dr. Bernie Jovel Work Phone: [facility] Work Phone: 04-24-2021 08:18-0500 Heart rate 84 /min Dr. Bernie Jovel Work Phone: [facility] Work Phone: 04-24-2021 08:18-0500 Respiratory rate 18 /min Dr. Bernie Jovel Work Phone: [facility] Work Phone: 04-24-2021 08:18-0500 Systolic blood pressure 118 mm[Hg] Dr. Bernie Jovel Work Phone: [facility] Work Phone: 04-15-2021 09:46-0500 Body mass index (BMI) [Ratio] 42.5 kg/m2 Dr. Bernie Jovel Work Phone: [facility] Work Phone: 04-15-2021 09:46-0500 Body temperature 97.7 [degF] Dr. Bernie Jovel Work Phone: [facility] Work Phone: 04-15-2021 09:46-0500 Body weight [address] Bernie Jovel Work Phone: [facility] Work Phone: 04-15-2021 09:46-0500 Diastolic blood pressure 70 mm[Hg] Dr. Bernie Jovel Work Phone: [facility] Work Phone: 04-15-2021 09:46-0500 Heart rate 61 /min Dr. Bernie Jovel Work Phone: [facility] Work Phone: 04-15-2021 09:46-0500 Respiratory rate 16 /min Dr. Bernie Jovel Work Phone: [facility] Work Phone: 04-15-2021 09:46-0500 SaO2% (BldA) [Mass fraction] 95 % Dr. Bernie Jovel Work Phone: [facility] Work Phone: 04-15-2021 09:46-0500 Systolic blood pressure 129 mm[Hg] Dr. Bernie Jovel Work Phone: [facility] Work Phone: 04-09-2021 12:00-0500 Body weight 112.[address] Bernie Jovel Work Phone: [facility] Work Phone: 04-09-2021 12:00-0500 Heart rate 68 /min Dr. Bernie Jovel Work Phone: [facility] Work Phone: 04-09-2021 12:00-0500 SaO2% (BldA) [Mass fraction] 97 % Dr. Bernie Jovel Work Phone: [facility] Work Phone: 03-30-2021 09:05-0500 Body mass index (BMI) [Ratio] 42.9 kg/m2 Dr. Bernie Jovel Work Phone: [facility] Work Phone: 03-30-2021 09:05-0500 Body temperature 96.9 [degF] Dr. Bernie Jovel Work Phone: [facility] Work Phone: 03-30-2021 09:05-0500 Body weight 111.[address] Bernie Jovel Work Phone: [facility] Work Phone: 03-30-2021 09:05-0500 Diastolic blood pressure 63 mm[Hg] Dr. Bernie Jovel Work Phone: [facility] Work Phone: 03-30-2021 09:05-0500 Heart rate 53 /min Dr. Bernie Jovel Work Phone: [facility] Work Phone: 03-30-2021 09:05-0500 Respiratory rate 16 /min Dr. Bernie Jovel Work Phone: [facility] Work Phone: 03-30-2021 09:05-0500 SaO2% (BldA) [Mass fraction] 96 % Dr. Bernie Jovel Work Phone: [facility] Work Phone: 03-30-2021 09:05-0500 Systolic blood pressure 120 mm[Hg] Dr. Bernie Jovel Work Phone: [facility] Work Phone: 08-22-2020 15:02-0400 Body mass index (BMI) [Ratio] 40 kg/m2 Dr. Bernie Jovel Work Phone: [facility] Work Phone: Encounters Encounter Date Encounter Type Care Provider Facility Start: 03-14-2025 ambulatory JOSE OMER Facilit y:[facility] Start: 02-20-2025 ambulatory Xena Dusty Zambranoalejandrakarlie Rivera ty:[facility] Start: 01-28-2025 End: 02-01-2025 ambulatory JOSE KAN TREE FARMER-GUARD CHIEF Facility:[facility] Start: 01-28-2025 End: 02-01-2025 Outreach Lab DAMON RAMIREZ TREE FARMER - GUARD CHIEF [facility] Start: 01-07-2025 End: 01-07-2025 ambulatory Coral Clemons Facility:[facility] Start: 12-17-2024 End: 12-17-2024 Admission to same day surgery center Dr. Brandon Cuellar MD -[facility] Start: 12-17-2024 End: 12-17-[address] Bernie Jovel DO Work Phone: -[facility] Start: 11-26-2024 End: 11-30-2024 ambulatory JOSE KAN TREE FARMER-GUARD CHIEF Facility:[facility] Start: 11-26-2024 End: 11-30-2024 Outreach Lab JOSEELYSE MARQUESKAN TREE FARMER-GUARD CHIEF [facility] Start: 10-26-2024 ambulatory JOSE MARQUESETLER Facilit y:[facility] Start: 10-02-2024 Non-patient / Non-visit Dr. 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 Eloy Coon MD [facility] Start: 09-18-2024 End: 09-18-[address] Bernie Jovel DO Work Phone: [facility] Work Phone: Start: 09-18-2024 End: 09-18-2024 Patient encounter procedure LEONOR Ramírez -Cardiovascular Services Work Phone: Start: 09-18-2024 End: 09-18-2024 ambulatory [facility] Facility:[facility] Start: 09-12-2024 End: 09-12-2024 Patient encounter procedure Bri Kim SHIPPING/RECEIVING CLERK-C -[facility] Work Phone: Start: 09-12-2024 End: 09-12-[address] Bernie Jovel DO Work Phone: [facility] Work Phone: Start: 09-12-2024 End: 09-12-2024 ambulatory [facility] Facility:[facility] Start: 09-03-2024 End: 09-03-2024 Admission to same day surgery center Dr. Brandon Cuellar MD -[facility] Start: 09-03-2024 End: 09-03-[address] Bernie Jovel DO Work Phone: [facility] Work Phone: Start: 08-07-2024 End: 08-11-2024 ambulatory BERNIE JOVEL DO Facility:[facility] Start: 08-07-2024 End: 08-11-2024 Outreach Lab BERNIE JOVEL DO [facility] Start: 08-06-2024 ambulatory BERNIE JOVEL DO [facility] ity:[facility] Start: 08-06-2024 End: 08-10-2024 Outreach Lab BERNIE JOVEL DO [facility] Start: 07-31-2024 End: 07-31-2024 Patient encounter procedure LEONOR Ramírez -[facility] Work Phone: Start: 07-31-2024 End: 07-31-2024 ambulatory Bernie Stapletony Facility:[facility] Start: 06-18-2024 End: 06-18-2024 Admission to same day surgery center Dr. Brandon Cuellar MD -[facility] Start: 06-18-2024 End: 06-18-[address] Bernie Jovel DO Work Phone: [facility] Work Phone: Start: 05-18-2024 End: 05-18-2024 Patient encounter procedure Coral Clemons SHIPPING/RECEIVING CLERK-C -Pulmonary Services/Neurology Work Phone: Start: 05-18-2024 End: 05-18-2024 ambulatory Coral Clemons Facility:[facility] Start: 05-09-2024 ambulatory Bernie Becka Facility :[facility] Start: 05-09-2024 Non-patient / Non-visit Dr. Med Wilder DO -[facility] Start: 05-01-2024 End: 05-01-2024 Patient encounter procedure Coral Clemons SHIPPING/RECEIVING CLERK-C -Pulmonary Services/Neurology Work Phone: Start: 05-01-2024 End: 05-01-2024 [facility]ulatory [facility] Facility:[facility] Start: 04-09-2024 End: 04-09-2024 Admission to same day surgery center Dr. Brandon Cuellar MD -[facility] Start: 04-09-2024 End: 04-09-2024 ambulatory Brandon Cuellar Facility:[facility] Start: 08-08-2023 End: 08-08-2023 Admission to same day surgery center [facility] Start: 08-08-2023 End: 08-08-2023 ambulatory [facility] Work Phone: Start: 06-19-2023 End: 06-19-2023 Emergency department patient visit [facility]-Emergency Department Work Phone: Start: 06-15-2023 End: 06-15-2023 ambulatory [facility] Work Phone: Start: 06-15-2023 End: 06-15-2023 Patient encounter procedure [facility]-Laboratory Work Phone: Start: 06-14-2023 End: 06-14-2023 Emergency department patient visit [facility]-Emergency Department Work Phone: Start: 05-23-2023 End: 05-23-2023 Admission to same day surgery center Dr. Bernie Jovel Work Phone: [facility] Start: 05-23-2023 End: 05-23-[address] Bernie Jovel Work Phone: [facility] Work Phone: Start: 02-15-2023 End: 02-20-2023 ambulatory PHYLLIS AYALA MD Facility:[facility] Start: 02-15-2023 End: 02-19-2023 Outreach Lab PHYLLIS AYALA MD [facility] Start: 02-03-2023 End: 02-03-[address] Bernie Jovel Work Phone: [facility]-Pulmonary Medicine [facility] Work Phone: Start: 01-17-2023 End: 01-17-[address] Bernie Jovel Work Phone: [facility] Work Phone: Start: 01-17-2023 End: 01-17-[address] Bernie Jovel Work Phone: [facility]-Radiology, [facility] Work Phone: Start: 12-25-2022 Non-patient / Non-visit Dr. Bernie Jovel Work Phone: [facility] Start: 12-25-2022 End: 12-25-2022 Admission to same day surgery center Dr. Bernie Jovel Work Phone: [facility]-Endoscopy Work Phone: Start: 12-25-2022 End: 12-25-2022 Emergency department patient visit [facility]-Emergency Department Work Phone: Start: 12-23-2022 End: 12-23-2022 Patient encounter procedure [facility]-Outpatient Bone Densitometry Work Phone: Start: 12-20-2022 End: 12-20-2022 Admission to same day surgery center [facility] Start: 12-20-2022 End: 12-20-2022 ambulatory [facility] Work Phone: Start: 07-19-2022 End: 07-19-2022 Admission to same day surgery center Dr. Bernie Jovel Work Phone: [facility]-S[facility] Day [facility] Start: 07-19-2022 End: 07-19-[address] Bernie Jovel Work Phone: [facility] Work Phone: Start: 06-17-2022 End: 06-17-[address] Bernie Jovel Work Phone: [facility] Work Phone: Start: 06-17-2022 End: 06-17-[address] Bernie Jovel Work Phone: [facility] Start: 06-10-2022 End: 06-10-[address] Bernie Jovel Work Phone: [facility] Start: 05-31-2022 End: 05-31-[address] Bernie Jovel Work Phone: [facility] Work Phone: Start: 05-31-2022 End: 05-31-[address] Bernie Jovel Work Phone: [facility]-Pulmonary Medicine [facility] Start: 05-27-2022 End: 06-01-2022 ambulatory BERNIE JOVEL DO Facility:[facility] Start: 05-27-2022 End: 05-31-2022 Outreach Lab BERNIE JOVEL DO [facility] Start: 05-24-2022 End: 05-24-2022 Admission to same day surgery center [facility] Start: 05-24-2022 End: 05-24-2022 ambulatory [facility] Work Phone: Start: 01-25-2022 End: 01-25-[address] Bernie Jovel Work Phone: [facility] Work Phone: Start: 01-25-2022 End: 01-25-[address] Bernie Jovel Work Phone: [facility] Start: 01-04-2022 End: 01-04-2022 Admission to same day surgery [facility] Start: 01-04-2022 End: 01-04-[address] Bernie Jovel Work Phone: [facility] Work Phone: Start: 12-02-2021 End: 12-02-[address] Bernie Jovel Work Phone: [facility] Work Phone: Start: 12-02-2021 End: 12-02-[address] Bernie Jovel Work Phone: [facility] Start: 11-16-2021 End: 11-16-2021 Admission to same day surgery center [facility] Start: 10-28-2021 End: 10-28-[address] Bernie Jovel Work Phone: [facility]-Laboratory Start: 10-28-2021 End: 10-28-[address] Bernie Jovel Work Phone: [facility] Start: 10-27-2021 End: 10-27-[address] [facility] Start: 10-19-2021 End: 10-19-2021 Patient encounter procedure [facility]-Laboratory Start: 07-20-2021 End: 07-20-2021 Admission to same day surgery center [facility] Start: 06-23-2021 End: 06-23-[address] Bernie Jovel Work Phone: [facility] Start: 06-22-2021 End: 06-22-2021 Admission to same day surgery center [facility] Start: 05-11-2021 End: 05-11-2021 Admission to same day surgery center [facility] Start: 04-24-2021 End: 04-24-[address] Bernie Jovel Work Phone: [facility] Start: 04-15-[address] Jefferson Jovel Work Phone: [facility] Start: 04-15-2021 End: 04-15-[address] Bernie Jovel Work Phone: [facility] Start: 04-09-2021 Non-patient / Non-visit Dr. Bernie Jovel Work Phone: [facility] Start: 04-09-2021 End: 04-09-[address] Bernie Jovel Work Phone: [facility]-Pulmonary Services/Neurology Start: 04-07-2021 Non-patient / Non-visit Dr. Bernie Jovel Work Phone: [facility] Start: 04-07-2021 End: 04-07-[address] Bernie Jovel Work Phone: [facility]-Pulmonary Services/Neurology Start: 03-30-[address] Bernie Jovel Work Phone: [facility]-Laboratory Start: 03-30-2021 End: 03-30-[address] Bernie Jovel Work Phone: [facility] Date Procedure Procedure Detail Performing Clinician Start: 12-17-2024 Local anesthetic sac ral epidural block Dr. Bernie Jovel DO Work Phone: Start: 12-17-2024 Injection of spinal epidural space Dr. Bernie Jovel DO Work Phone: Start: 12-17-2024 Injection using fluoroscopic guidance Dr. Bernie Jovel DO Work Phone: Start: 09-03-2024 Local anesthetic lum bar epidural block Dr. Bernie Jovel DO Work Phone: Start: 09-03-2024 Fluoroscopy guided injection of cervical spinal nerve root Dr. Bernie Aguilar Phone: Start: 09-03-2024 Injection of facet joint Dr. Bernie Jovel DO Work Phone: Start: 09-03-2024 X-ray of cervical spine Dr. Bernie Jovel DO Work Phone: Start: 06-18-2024 Local anesthetic sac ral epidural block Dr. Bernie Jovel DO Work Phone: Start: 06-18-2024 Injection of spinal epidural space Dr. Bernie Jovel DO Work Phone: Start: 06-18-2024 Injection using fluoroscopic guidance Dr. Bernie Aguilar Phone: Start: 04-09-2024 Injection of facet joint Dr. Bernie Jovel DO Work Phone: Start: 04-09-2024 Fluoroscopy guided injection of cervical spinal nerve root Dr. Bernie Jovel DO Work Phone: Start: 04-09-2024 X-ray of cervical spine Dr. Bernie Jovel DO Work Phone: Start: 04-09-2024 Injection of facet joint Dr. Bernie Jovel DO Work Phone: Start: 08-08-2023 Local anesthetic sac ral epidural block Start: 08-08-2023 Injection of spinal epidural space Start: 06-15-2023 Radiography of thora cic spine Start: 06-15-2023 X-ray of cervical spine Start: 06-15-2023 Plain X-ray of shoulder Start: 05-23-2023 Radio Frequency Abla tion (Left) Dr. Bernie Jovel Work Phone: Start: 05-23-2023 Fluoroscopic guidance Olman Jovel Work Phone: Start: 05-23-2023 X-ray of lumbar spin e, two or three views Start: 01-17-2023 Plain x-ray of pelvi s and lower extremity Dr. Bernie Jovel Work Phone: Start: 12-23-2022 Dual energy X-ray absorptiometry Start: 12-23-2022 Screening mammography Start: 12-20-2022 Local anesthetic sac ral epidural block Start: 12-20-2022 Injection of spinal epidural space Start: 12-20-2022 Injection using fluoroscopic guidance Start: 07-19-2022 Local anesthetic sac ral epidural block Dr. Bernie Jovel Work Phone: Start: 07-19-2022 Injection of spinal epidural space Dr. Bernie Jovel Work Phone: Start: 06-17-[address] Bernie Jovel Work Phone: Start: 05-24-2022 Radio Frequency Abla tion (Left) Start: 05-24-2022 Fluoroscopic guidance Olman Jovel Work Phone: Start: 05-24-2022 X-ray of lumbar spin e, two or three views Dr. Bernie Jovel Work Phone: Start: 01-25-2022 Radiologic examinati on of knee Dr. Bernie Jovel Work Phone: Start: 01-04-2022 Local anesthetic sac ral epidural block Dr. Bernie Jovel Work Phone: Start: 01-04-2022 Injection of spinal epidural space Dr. Bernie Jovel Work Phone: Start: 01-04-2022 Injection using fluoroscopic guidance Dr. Bernie Jovel Work Phone: Start: 12-02-2021 Radiologic examinati on of lumbosacral spine, complete, with bending views Dr. Bernie Jovel Work Phone: Start: 11-16-2021 Fluoroscopic guidance Olman Jovel Work Phone: Start: 11-16-2021 Injection of sacroil iac joint Dr. Bernie Jovel Work Phone: Start: 07-20-2021 Local anesthetic sac ral epidural block Dr. Bernie Jovel Work Phone: Start: 07-20-2021 Injection of spinal epidural space Start: 07-20-2021 Injection using fluoroscopic guidance Start: 06-22-2021 Fluoroscopic guidance Olman Jovel Work Phone: Start: 05-11-2021 OR-Steroi/Epid Inj/L um Sac/1st Dr. Bernie Jovel Work Phone: Start: 05-11-2021 Injection using fluoroscopic guidance Dr. Bernie Jovel Work Phone: Arthroplasty of knee BERNIE JOVEL DO Comment on above: left 10/2014 Cataract surgery BERNIE HODGES DO Comment on above: bilateral Colonoscopy BERNIE JOVEL DO Comment on above: 2007 normal Ligation of fallopian tube Rakel JOVEL DO Lumbar spine structu re (body structure) BERNIE JOVEL DO Comment on above: right side ablasion lumbar ablasion L3-5 , S1 2018 Tonsillectomy BERNIE JOVEL DO Plan of Treatment Date Care Activity Detail Author Start: 12-17-2024 Patient discharge [facility] Start: 10-18-2024 Continuous pulse oximetry [facility] Start: 09-20-2024 Continuous pulse oximetry [facility] Start: 09-03-2024 Anes dx/ther nerve block/injection prone pos ANESTH N BLOCK/INJ PRONE [facility] Start: 09-03-2024 Njx dx/ther agt pvrt facet jt crv/thrc 1 level INJ PARAVERT F JNT C/T 1 [facility] Start: 09-03-2024 Njx dx/ther agt pvrt facet jt crv/thrc 2nd level INJ PARAVERT F JNT C/T 2 [facility] Start: 09-03-2024 Njx dx/ther agt pvrt facet jt crv/thrc 3+ level INJ PARAVERT F JNT C/T 3 [facility] Start: 09-03-2024 Fluoroscopy guided injection of cervical spinal nerve root [facility] Start: 09-03-2024 Injection of facet joint [facility] Start: 09-03-2024 X-ray of cervical spine Cerv Spine 4 or 5 Views [facility] Start: 09-03-2024 Patient discharge [facility] Start: 06-18-2024 Anes dx/ther nerve block/injection prone pos ANESTH N BLOCK/INJ PRONE [facility] Start: 06-18-2024 Njx dx/ther sbst intrlmnr lmbr/sac w/img gdn NJX INTERLAMINAR LMBR/SAC [facility] Start: 06-18-2024 Injection of spinal epidural space [facility] Start: 06-18-2024 Injection using fluoroscopic guidance [facility] Start: 06-18-2024 Patient discharge [facility] Start: 04-09-2024 Njx dx/ther agt pvrt facet jt crv/thrc 1 level INJ PARAVERT F JNT C/T 1 [facility] Start: 04-09-2024 Njx dx/ther agt pvrt facet jt crv/thrc 2nd level INJ PARAVERT F JNT C/T 2 [facility] Start: 04-09-2024 Njx dx/ther agt pvrt facet jt crv/thrc 3+ level INJ PARAVERT F JNT C/T 3 [facility] Start: 04-09-2024 Patient discharge [facility] Start: 08-08-2023 Injection using fluoroscopic guidance [facility] Start: 08-08-2023 Patient discharge [facility] Start: 06-19-2023 [facility] Start: 06-14-2023 [facility] Start: 05-23-2023 Dstr nrolytc agnt parverteb fct addl lmbr/sacral DESTROY L/S FACET JNT [facility] Start: 05-23-2023 Dstr nrolytc agnt parverteb fct sngl lmbr/sacral DESTROY LUMB/SAC FACET JNT [facility] Start: 05-23-2023 X-ray of lumbar spine, two or three views Lumbar Spine 2 or 3 Views [facility] Start: 05-23-2023 XR Lumbar spine [address] [facility] Start: 05-23-2023 Patient discharge [facility] Start: 12-25-2022 Esophagogastroduodenoscopy EGD (Not Applicable) [facility] Start: 12-25-2022 Egd flexible foreign body removal EGD REMOVE FOREIGN BODY [facility] Start: 12-25-2022 Egd insert guide wire dilator passage esophagus EGD GUIDE WIRE INSERTION [facility] Start: 12-25-2022 Egd transoral biopsy single/multiple EGD BIOPSY SINGLE/MULTIPLE [facility] Start: 12-25-2022 Patient discharge [facility] Start: 12-20-2022 Njx dx/ther sbst intrlmnr lmbr/sac w/img gdn NJX INTERLAMINAR LMBR/SAC [facility] Start: 12-20-2022 Injection of spinal epidural space [facility] Start: 12-20-2022 Injection using fluoroscopic guidance [facility] Start: 12-20-2022 Patient discharge [facility] Start: 07-19-2022 Injection using fluoroscopic guidance [facility] Start: 07-19-2022 Patient discharge [facility] Start: 05-24-2022 Dstr nrolytc agnt parverteb fct addl lmbr/sacral DESTROY L/S FACET JNT ADDL [facility] Start: 05-24-2022 Dstr nrolytc agnt parverteb fct sngl lmbr/sacral DESTROY LUMB/SAC FACET JNT [facility] Start: 05-24-2022 Fluoroscopic guidance O.R. Fluoro for C-Arm [facility] Start: 05-24-2022 X-ray of lumbar spine, two or three views Lumbar Spine 2 or 3 Views [facility] Start: 05-24-2022 Patient discharge [facility] Start: 01-04-2022 Anes dx/ther nerve block/injection prone pos ANESTH N BLOCK/INJ PRONE [facility] Work Phone: Start: 01-04-2022 Njx dx/ther sbst intrlmnr lmbr/sac w/img gdn NJX INTERLAMINAR LMBR/SAC [facility] Work Phone: Start: 01-04-2022 Injection using fluoroscopic guidance [facility] Work Phone: Start: 01-04-2022 Patient discharge [facility] Work Phone: Start: 11-16-2021 Anes nerve musc tendon fascia & bursae upper leg ANESTH UPPER LEG SURGERY [facility] Work Phone: Start: 11-16-2021 Inject si joint arthrgrphy&/anes/steroid w/romulo INJECT SACROILIAC JOINT [facility] Work Phone: Start: 11-16-2021 Fluoroscopic guidance [facility] Work Phone: Start: 11-16-2021 Patient discharge [facility] Work Phone: Start: 07-20-2021 Anes dx/ther nerve block/injection prone pos ANESTH N BLOCK/INJ PRONE [facility] Work Phone: Start: 07-20-2021 Njx dx/ther sbst intrlmnr lmbr/sac w/img gdn NJX INTERLAMINAR LMBR/SAC [facility] Work Phone: Start: 07-20-2021 Injection of spinal epidural space OR-Steroi/Epid Inj/Lum Sac/1st [facility] Work Phone: Start: 07-20-2021 Injection using fluoroscopic guidance Fluor Guidance for Spine Inj [facility] Work Phone: Start: 07-20-2021 Patient discharge [facility] Work Phone: Start: 06-22-2021 Anes nerve musc tendon fascia & bursae upper leg ANESTH UPPER LEG SURGERY [facility] Work Phone: Start: 06-22-2021 Inject si joint arthrgrphy&/anes/steroid w/romulo INJECT SACROILIAC JOINT [facility] Work Phone: Start: 05-11-2021 Anes dx/ther nerve block/injection prone pos ANESTH N BLOCK/INJ PRONE [facility] Work Phone: Start: 05-11-2021 Fluor needle/cath spine/paraspinal dx/ther addon FLUOROGUIDE FOR SPINE INJECT [facility] Work Phone: Start: 05-11-2021 Njx anes&/strd w/img tfrml edrl lmbr/sac 1 lvl NJX AA&/STRD TFRM EPI L/S 1 [facility] Work Phone: Start: 05-11-2021 Njx dx/ther sbst intrlmnr lmbr/sac w/img gdn NJX INTERLAMINAR LMBR/SAC [facility] Work Phone: CBC W Auto Different ial panel - Blood [facility] Comprehensive metabo lic 1999 panel - Serum or Plasma [facility] CT Chest [facility] Lipid 1995 panel - Serum or Plasma [facility] Magnesium measurement [facility] Natriuretic peptide. B prohormone N-Terminal [Mass/volume] in Serum or Plasma [facility] Natriuretic peptide. B prohormone N-Terminal [Mass/volume] in Serum or Plasma [facility] Patient Education [facility] Work Phone: Patient referral [facility] Work Phone: Urine microalbumin/c reatinine ratio measurement [facility] US Heart [facility] Immunizations Immunization Date Immunization Notes Care Provider Fa cili 02-10-2024 influenza virus vacc ine, unspecified formulation DAMON RAMIREZ [employer] GUARD CHIEF [facility] 02-10-2024 Seasonal trivalent influenza vaccine, adjuvanted, preservative free Dr. Bernie Jovel DO Work Phone: [facility] 02-03-2023 influenza virus vacc ine, unspecified formulation DAMON RAMRIEZ [employer] GUARD CHIEF [facility] 02-03-2023 influenza, injectabl e, quadrivalent, preservative free Dr. Bernie Jovel Work Phone: [facility] 05-27-2022 influenza, injectabl e, quadrivalent, contains preservative; Translations: [Fluarix PF Quadrivalent ] BERNIE JOVEL DO [facility] 03-25-2021 influenza, high dose seasonal, preservative-free; Translations: [Fluad Quadrivalent PF ] BERNIE JOVEL DO [facility] 06-03-2020 COVID-19, mRNA, LNP- S, PF, 100 mcg or 50 mcg dose; Translations: [Moderna COVID-19 Vaccine] BERNIE JOVEL DO [facility] Comment on above: Result Comment: [employer] 05-06-2020 SARS-CoV-2 (COVID-19 ) [id number] vaccine DAMON RAMIREZ [employer] GUARD CHIEF [facility] 03-16-2019 influenza, injectabl e, quadrivalent, preservative free; Translations: [Fluarix PF Quadrivalent ] BERNIE VIGILSAY DO [facility] 02-07-2017 influenza virus vacc ine, unspecified formulation DAMON VILLATOROPKINS [employer] - GUARD CHIEF [facility] 12-09-2015 pneumococcal conjuga te vaccine, 13 valent STEELES TAVERN BECKA DO [facility] Comment on above: Result Comment: [facility] 11-18-2015 influenza virus vacc ine, unspecified formulation DAMON VILLATOROPKINS [employer] GUARD CHIEF [facility] 12-31-2014 influenza virus vacc ine, unspecified formulation DAMON VILLATOROPKINS [employer] GUARD CHIEF [facility] 06-05-2014 zoster vaccine, live BERNIE JOVEL DO [facility] Comment on above: Result Comment: [facility] 01-21-2014 influenza virus vacc ine, unspecified formulation DAMON VILLATOROPKINS [employer] GUARD CHIEF [facility] 01-21-2014 pneumococcal polysaccharide vaccine, 23 valent BERNIE BECKA DO [facility] Comment on above: Result Comment: [facility] 12-26-2012 influenza virus vacc ine, unspecified formulation DAMON VILLATOROPKINS [employer] GUARD CHIEF [facility] 02-01-2012 influenza virus vacc ine, unspecified formulation DAMON JAMES [employer]ARD CHIEF [facility] 04-04-2008 pneumococcal polysaccharide vaccine, 23 valent BERNIE JOVEL DO [facility] Comment on above: Result Comment: [facility] 03-03-2008 pneumococcal polysaccharide vaccine, 23 valent DAMON VILLATOROPKINS [employer] GUARD CHIEF [facility] Payers Date Payer Category Payer Self-pay [id number] 2024 Private Health Insurance [place] [id number] 2018 Medicaid [id number] 2016 Unknown [id number] 2016 Unknown [id number] 1950 Unknown [id number] 2.16.8 40.1.915342.3.579.2. 1950 Unknown [id number] .16.8 40.1.141214.3.579.2. 1950 Unknown [id number] 2.16. 840.1.630297.3.579.2. 1950 Unknown [id number] 2.16. 840.1.739638.3.579.2. 1950 Unknown [id number] 2.16. 840.1.449728.3.579.2. 1950 Unknown [id number] 2.16.8 40.1.422873.3.579.2. 1950 Unknown [id number] 2.16.8 40.1.177736.3.579.2.627 Unknown [id number] 2.16.8 40.1.625965.3.579.2.462 Unknown [id number] 2.16.8 40.1.583906.3.579.2.462 Unknown [id number] 2.16.8 40.1.130138.3.579.2.462 Unknown [id number] 2.16.8 40.1.595172.3.579.2.462 Unknown [id number] 2.16.8 40.1.882921.3.579.2.462 Unknown [id number] 2.16.8 40.1.816049.3.579.2.462 Unknown [id number] 2.16.8 40.1.797111.3.579.2.462 Unknown [id number] 2.16.8 40.1.825076.3.579.2.462 Unknown [id number] 2.16.8 40.1.671803.3.579.2.462 Unknown [id number] 2.16.8 40.1.307574.3.579.2.462 Unknown [id number] 2.16.8 40.1.622732.3.579.2.462 Unknown [id number] 2.16.8 40.1.445960.3.579.2.462 Unknown [id number] 2.16.8 40.1.228300.3.579.2.462 Unknown [id number] 2.16.8 40.1.807339.3.579.2.462 Unknown [id number] 2.16.8 40.1.085605.3.579.2.462 Unknown [id number] 2.16.8 40.1.592131.3.579.2.462 Unknown [id number] 2.16.8 40.1.775357.3.579.2.462 Social History Date Type Detail Facility Start: 06-23-2021 End: 06-19-2023 Tobacco smoking status ARIS Unknown if ever smoked [facility] Start: 07-13-2020 None [facility] Start: 07-13-2020 With Family [facility] Start: 07-13-2020 Cigarettes [facility] Start: 1950 Sex Assigned At Female W [facility] Start: 12-15-2018 End: 01-28-2025 Tobacco smoking status Heavy tobacco smoker (finding) [facility] Start: 09-27-2018 End: 06-18-2024 Sex Female (finding) [facility] Sexual Orientation [facility] lobo [facility] Not [facility] NEGATED: Highlighted row Not [facility] Medical Equipment Procedure Code Equipment Code [...] E11.9, # 100 EA, 3 Refill(s), Pharmacy: [facility] [id number], Diabetes mellitus, 159, cm, 05/27/22 10:48:00 EST, Height, 121.8, kg, 05/27/22 10:40:00 EST, Dosing Weight Start: 06-14-2022 See Instructions , Dispense ultrafine lancets, #100, Use 1 lancet daily as directed to test blood sugar. Dx: E11.9, # 100 EA, 3 Refill(s), Pharmacy: [facility] [id number], Diabetes mellitus, 159, cm, 05/27/22 10:48:00 EST, Height, 121.8, kg, 05/27/22 10:40:00 EST, Dosing Weight Start: 06-14-2022 See Instructions , Dispense glucose test strips, #100, Use 1 strip daily as directed to test blood sugar. Dx: E11.9, # 100 EA, 3 Refill(s), Pharmacy: [place] [address], Diabetes mellitus, 159, cm, 05/27/22 10:48:00 EST, Height, 121.8, kg, 05/27/22 10:40:00 EST, Dosing Weight Start: 06-14-2022 See Instructions , Dispense ultrafine lancets, #100, Use 1 lancet daily as directed to test blood sugar. Dx: E11.9, # 100 EA, 3 Refill(s), Pharmacy: [place] [address], Diabetes mellitus, 159, cm, 05/27/22 10:48:00 EST, Height, 121.8, kg, 05/27/22 10:40:00 EST, Dosing Weight Start: 06-14-2022 See Instructions , Dispense glucose test strips, #100, Use 1 strip daily as directed to test blood sugar. Dx: E11.9, # 100 EA, 3 Refill(s), Pharmacy: [place] [address], Diabetes mellitus, 159, cm, 05/27/22 10:48:00 EST, Height, 121.8, kg, 05/27/22 10:40:00 EST, Dosing Weight Start: 06-14-2022 See Instructions , Dispense ultrafine lancets, #100, Use 1 lancet daily as directed to test blood sugar. Dx: E11.9, # 100 EA, 3 Refill(s), Pharmacy: [place] [address], Diabetes mellitus, 159, cm, 05/27/22 10:48:00 EST, Height, 121.8, kg, 05/27/22 10:40:00 EST, Dosing Weight Start: 06-14-2022 See Instructions , Dispense glucose test strips, #100, Use 1 strip daily as directed to test blood sugar. Dx: E11.9, # 100 EA, 3 Refill(s), Pharmacy: [place] [address], Diabetes mellitus, 159, cm, 05/27/22 10:48:00 EST, Height, 121.8, kg, 05/27/22 10:40:00 EST, Dosing Weight Start: 06-14-2022 See Instructions , Dispense ultrafine lancets, #100, Use 1 lancet daily as directed to test blood sugar. Dx: E11.9, # 100 EA, 3 Refill(s), Pharmacy: [place] [address], Diabetes mellitus, 159, cm, 05/27/22 10:48:00 EST, Height, 121.8, kg, 05/27/22 10:40:00 EST, Dosing Weight Start: 06-14-2022 See Instructions , Dispense glucose test strips, #100, Use 1 strip daily as directed to test blood sugar. Dx: E11.9, # 100 EA, 3 Refill(s), Pharmacy: [place] [address], Diabetes mellitus, 159, cm, 05/27/22 10:48:00 EST, Height, 121.8, kg, 05/27/22 10:40:00 EST, Dosing Weight Start: 06-14-2022 See Instructions , Dispense ultrafine lancets, #100, Use 1 lancet daily as directed to test blood sugar. Dx: E11.9, # 100 EA, 3 Refill(s), Pharmacy: [place] [address], Diabetes mellitus, 159, cm, 05/27/22 10:48:00 EST, Height, 121.8, kg, 05/27/22 10:40:00 EST, Dosing Weight Start: 06-14-2022 See Instructions , Dispense glucose test strips, #100, Use 1 strip daily as directed to test blood sugar. Dx: E11.9, # 100 EA, 3 Refill(s), Pharmacy: [place] [address], Diabetes mellitus, 159, cm, 05/27/22 10:48:00 EST, Height, 121.8, kg, 05/27/22 10:40:00 EST, Dosing Weight Start: 06-14-2022 See Instructions , Dispense ultrafine lancets, #100, Use 1 lancet daily as directed to test blood sugar. Dx: E11.9, # 100 EA, 3 Refill(s), Pharmacy: [place] [address], Diabetes mellitus, 159, cm, 05/27/22 10:48:00 EST, Height, 121.8, kg, 05/27/22 10:40:00 EST, Dosing Weight Start: 06-14-2022 Goals Date Patient Goal Desired Activity /State Functional Status Date Assessment Result Facility 06-22-2021 Functional status Ambulates;Up ad osvaldo [facility] Work Phone: Mental Status Date Assessment Result Facility 12-17-2024 Cognitive function Level Of Consciousness Drowsy [facility] Work Phone: 12-17-2024 Cognitive function Voice/Name [facility] Work Phone: 09-03-2024 Cognitive function Voice/Name [facility] Work Phone: 06-18-2024 Cognitive function Voice/Name [facility] Work Phone: 04-09-2024 Cognitive function Voice/Name [facility] Work Phone: 08-08-2023 Cognitive function Voice/Name [facility] Work Phone: 05-23-2023 Cognitive function Voice/Name [facility] Work Phone: 12-25-2022 Cognitive function Voice/Name [facility] Work Phone: 12-25-2022 Cognitive function Level Of Cons ciousness Awake;Alert;Appropriate [facility] Work Phone: 12-20-2022 Cognitive function Voice/Name [facility] Work Phone: 07-19-2022 Cognitive function Level Of Cons ciousness Awake;Alert;Appropriate;Follow s Commands [facility] Work Phone: 05-24-2022 Cognitive function Voice/Name [facility] Work Phone: 01-04-2022 Cognitive function Level Of Cons ciousness Awake;Appropriate [facility] Work Phone: 01-04-2022 Cognitive function Voice/Name [facility] Work Phone: 11-16-2021 Cognitive function Voice/Name [facility] Work Phone: 11-16-2021 Cognitive function Patient Orien tation Person;Place;Time [facility] Work Phone: 07-20-2021 Cognitive function Voice/Name [facility] Work Phone: 06-22-2021 Cognitive function Voice/Name [facility] Work Phone: 05-11-2021 Cognitive function Voice/Name [facility] Work Phone: Clinical Notes 07-13-2020 to 01-30-2025 Note Date & Type Note Facility 01-30-2025 Note . MICRO - Microbiology PROCEDURE: Urine Culture [*1] SOURCE: Urine, Clean Catch BODY SITE: COLLECTED DATE/TIME: 01/28/2025 16:26 EDT RECEIVED DATE/TIME: 01/28/2025 18:59 EDT START DATE/TIME: 01/28/2025 19:00 EDT FREE TEXT SOURCE: FINAL REPORTS Final Report [] Verified Date/Time/Personnel: 01/30/2025 08:44 EDT >100,000 cfu/ml Escherichia coli PRELIMINARY REPORTS Preliminary Report [] Verified Date/Time/Personnel: 01/29/2025 10:24 EDT >100,000 cfu/ml Escherichia coli HERMINIA to follow Preliminary Report [] Verified Date/Time/Personnel: 01/28/2025 19:59 EDT Specimen received in lab. SUSCEPTIBILITY RESULTS Escherichia coli Antibiotic HERMINIA Dilut HERMINIA Inter Ampicillin >16 Resistant Ampicillin/ 8/4 Susceptible Sulbactam Aztreonam <=4 Susceptible Cefazolin 16 Intermediate Cefepime <=2 Susceptible Ceftolozane/ <=2 Susceptible Tazobactam Ceftriaxone <=1 Susceptible Cefuroxime <=4 Susceptible Ciprofloxacin <=0.25 Susceptible Ertapenem <=0.5 Susceptible Gentamicin <=2 Susceptible ID Panel Not Not Applicable Applicable Imipenem <=1 Susceptible Levofloxacin <=0.5 Susceptible Meropenem <=1 Susceptible Minocycline <=4 Susceptible Nitrofurantoin <=32 Susceptible Piperacillin/ <=8 Susceptible Tazobactam Trimethoprim/ <=0.5/9.5 Susceptible Sulfa Performing Locations *1: This test was performed at: [facility], [address] [place] [address], [id number] , [facility] 12-17-2024 Radiology Diagnostic study note [facility] Imaging Services [address] [place] [address] Fluor Guidance for Spine Inj MR#: [id number] Acct: [id number] Name: SILVIA ROSADO Rep #: [id number] : 1950 F 74 From: Martin Cleary MD PCP: FAISAL ORO [place] [facility] [place]:Fluor Guidance for Spine Inj Date of Ex am: 12/17/24 Exam# [id number] Ordering Dr: Brandon Cuellar MD PROCEDURE: FLUOR GUIDANCE FOR SPINE INJ 12/17/2024 REASON FOR EXAM: CAUDAL BLOCK TECHNIQUE: Procedure Code: RADSPN Modality: DX Procedure: FLUOR GUIDANCE FOR SPINE INJ Intraoperative fluoroscopic services provided for caudal block. 20.5 seconds offluoroscopy. Radiation dose: 17.42 mGy. 1 image was provided. COMPARISON: June 18, 2024 FINDINGS: Intraoperative imaging provided for caudal block. RAD/Fluor Guidance for Spine Inj IMPRESSION: Intraoperative imaging provided for caudal block. Reading Location: [place] [address] CC: SHIPPING/RECEIVING CLERK-C JOSE OMER; Dr. Brandon Cuellar MD ~ Pickle Cutter: Signed [facility] 12-17-2024 Consult note [facility] 12-17-2024 Consult note Note Date/Time December 17, 2024 11:54am [facility] Medical Records Department [address] [place] [address] Pre-Anesthesia Evaluation 12/17/24 1154 MR#: [id number] Acct: [id number] Name: SILVIA ROSADO Rep #:[id number] : 1950 74 From: Louis Luog MD PCP: FAISAL ORO [place] [place] Race: C [place] [facility] ASA Classification* ASA Classification ASA Classification: 3 Assessment & Plan Anesthesia* Anesthesia Assessment Anesthesia Assessment: Discussed sedation and/or anesthesia options, risks, benefits, and alternatives with patient/parents/legal guardian/POA. Questions invited. The patient/parents/legal guardian/POA seems to understand and agrees to proceedwith anesthesia plan. Reviewed the physical assessment, medical history, allergy history and patient home medications list prior to surgery/procedure/anesthetic and documented any changes. Performed airway and anesthesia risk assessments. Anesthesia Type Anesthesia Type: MAC Anesthesia Focused Assessment* Airway Assessment Mouth opens: >3 cm Mallampati Score: II Labs Anesthesia Preop lab: CBC WBC 9.9 K/mm3 (4.4-11.0) 09/12/24 13:58 09/12/24 RBC 4.57 M/mm3 (4.2-5.4) 09/12/24 13:58 09/12/24 Hgb 13.2 g/dL (12.0-15.0) 09/12/24 13:58 09/12/24 Hct 40.3 % (37-47) 09/12/24 13:58 09/12/24 Plt Count 235 K/mm3 (150-450) 09/12/24 13:58 09/12/24 CHEMISTRY Potassium 4.5 mmol/L (3.3-5.1) 09/12/24 13:58 09/12/24 Sodium 136 mmol/L (133-145) 09/12/24 13:58 09/12/24 Magnesium 2.1 mg/dL (1.5-2.2) 09/12/24 13:58 09/12/24 BUN 23 mg/dL (4-19) H 09/12/24 13:58 09/12/24 Creatinine 0.94 mg/dL (0.70-1.20) 09/12/24 13:58 09/12/24 Glucose 95 mg/dL (70-99) 09/12/24 13:58 09/12/24 POC Glucose 138 mg/dL (74-106) H 09/03/24 09:23 09/03/24 TSH 2.92 uIU/mL (0.358-3.74) 05/31/22 14:35 COAG PT 13.9 SECONDS (11.7-14.9) 04/15/21 10:05 Pre-Assessment Diagnosis/Proposed Procedure Planned Operative Procedure(s): CAUDAL EPIDURAL STEROID INJECTION UNDER FLUOROSCOPY Anesthesia History Anesthesia History - protection consultant: Anesthesia History - protection consultant Hx Hospitalization No 12/11/24 14:33 Any Problems With Anesthesia No 12/11/24 14:33 Cholinesterase deficiency No 12/11/24 14:33 You/Your Family Experience No 12/11/24 14:33 fever (hyperthermia) with Relationship Recent Exposure to Contagious No 09/03/24 09:24 Disease Does patient have nerve No 12/11/24 14:33 stimulator Patient instructed to have device shut off --Does patient have Pacemaker or ICD? When Was Last Pacemaker Check QUESTION #4 FULL TEXT: You/Your Family Experience fever (hyperthermia) with Anesthesia Last Oral Intake Last Oral intake: Last Oral Intake NPO since Meds taken in AM with sips of water? 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 - protection consultant: PONV - protection consultant Female Yes 12/11/24 14:33 HX of Motion Sickness No 12/11/24 14:33 HX of N/V After Surgery No 12/11/24 14:33 Non-Smoker No 12/11/24 14:33 Duration of Surgery greater No 12/11/24 14:33 than 60 minutes Number of Risk Factors 1 12/11/24 14:33 PONV Score Low Risk 12/11/24 14:33 Height & Weight Height & Weight: Anesthesia: Height & Weight Height 5 ft 3 in 09/12/24 12:38 Respiratory Assessment Respiratory Assessment - protection consultant: Respiratory Tract Infection Hx - protection consultant Hx Respiratory Tract Infection No 12/11/24 14:33 STOP Sleep Apnea STOP Sleep Apnea - protection consultant: STOP Sleep Apnea - protection consultant Hx Hypertension Yes: CONTROLLED WITH MED 12/11/24 14:33 Hx Sleep Apnea No 12/11/24 14:33 CPAP No 12/11/24 14:33 BIPAP No 12/11/24 14:33 Do you snore loudly (louder No 12/11/24 14:33 than talking or can be heard Do you often feel tired/ No 12/11/24 14:33 fatigued/ sleepy during daytime? Has anyone observed you stop No 12/11/24 14:33 breathing during sleep? STOP Results Negative 12/11/24 14:33 QUESTION #5 FULL TEXT : Do you snore loudly (louder than talking or can be heard through closed doors)? Tobacco Use History Tobacco Use History - protection consultant: Tobacco Use History - protection consultant Tobacco Use Smoking Status Heavy Smoker (>10/day) 12/11/24 14:33 Hx Tobacco Use Yes 12/11/24 14:33 Years Smoking Packs Smoked per Day Smoking Cessation Date was within the last 15 years Hx Smoking Cessation Date 08/22/20 10/30/24 13:17 Hx Smoking Cessation No 12/11/24 14:33 Counseling Hematologic Medial History Hematologic Hx - protection consultant: Hematologic Medical Hx - clinical documentation spec Hx of Blood Transfusion No 12/11/24 14:33 Hx of Transfusion in last 3 No 12/11/24 14:33 Months Date of Last Transfusion (if within last 3 months) Ever experience any problems No 12/11/24 14:33 with transfusion(s)? Specify any problems Hx of Preganancy in last 3 N/A 12/11/24 14:33 Months Nurse Filling Out Transfusion NBUCHER 12/11/24 14:33 & Questions: Date: 12/11/24 12/11/24 14:33 Time: 14:34 12/11/24 14:33 Patient unable to answer at this time (ie. confused, unrespo /Reproduction History /Reproductive History - protection consultant: /Reproductive Hx- protection consultant Hx Now Gestational Age (in weeks): EDC: Hx Hx Para Hx Section SAB No 12/11/24 14:33 Active Medications Active Medications: Current Medications Generic Name Dose Route Start Last Admin Trade Name Freq PRN Reason Stop Dose Admin Lactated Ringer's 1,000 mls @ 15 mls/hr 12/17/24 10:30 12/17/24 11:49 IV 15 mls/hr .Q48H CARRINGTON Administration Lactated Ringer's 1,000 mls @ 15 mls/hr 12/17/24 11:45 IV .Q48H CARRINGTON PFSH Medical History Walker as ambulation aid Uses wheelchair Gastric reflux Arthritis Bipolar disorder Depression Anxiety Migraine headache Dietary restriction History of diverticulitis Chronic cough History of echocardiogram Hypertension Cardiology follow-up encounter COPD (chronic obstructive pulmonary disease) Shortness of breath on exertion Ambulates with cane High cholesterol Smoker History of edema History of CHF (congestive heart failure) Fall Hyperlipidemia Nicotine dependence History of pulmonary embolus (PE) (07/13/20) (HFpEF) heart failure with preserved ejection fraction (07/13/20) Pericardial effusion without cardiac tamponade (07/13/20) Essential (primary) hypertension Anasarca Degeneration of intervertebral disc of lumbosacral region Spondylosis of lumbosacral region without myelopathy or radiculopathy Bilateral sacroiliitis Sacrococcygeal disorders, not elsewhere classified Bipolar disorder Diabetes Home Medications ?Medication ?Instructions ?Recorded ?Last Taken ?Type docusate sodium 100 mg capsule 100 mg PO BID 12/14/17 04/08/24 History (DOK) escitalopram oxalate 10 mg tablet 10 mg PO QHS 8 04/08/24 History lisinopril 5 mg tablet 5 mg PO LUNCH #30 tabs 08/1204/09/24 Rx buspirone 10 mg tablet 20 mg PO TID Anxiety 1 09/03/24 History atenolol 50 mg tablet 50 mg PO BID 09/11/20 History gabapentin 800 mg tablet 800 mg PO TID 10/28/2109/03 History multivitamin with folic acid 400 1 tab PO DAILY 04/08/24 History mcg tablet (Daily-Dmitri (with folic acid)) sumatriptan succinate 100 mg tablet 100 mg PO Q2H PRN migraines 05/31/22 04/08/24 History furosemide 40 mg tablet 40 mg PO DAILY 08/08/2308/26 History bisacodyl 5 mg tablet,delayed 5 mg PO DAILY 11/25/23 0 04/08/24 History release buprenorphine 10 mcg/hour weekly 1 patch transdermal Q 7D 11/25/23 04/09/24 History transdermal patch metformin 500 mg tablet 1,000 mg PO BIDCM 11/25/23 0 04/08/24 History quetiapine 200 mg tablet 200 mg PO QHS 11/25/2304/08 History quetiapine 400 mg tablet (Seroquel) 400 mg PO QHS 11/0304/08/24 History albuterol sulfate 90 mcg/actuation 2 puff inhalation Q 6H PRN 03/27/24 04/08/24 Rx aerosol inhaler shortness of breath or wheez ing #8.5 grams pantoprazole 20 mg tablet,delayed 20 mg PO Q12H 3 luigi hs #180 tabs 04/26/24 09/03/24 Rx release lactulose 10 gram/15 mL oral 15 - 30 ml PO DAILY PRN 0 05/17/24 Unknown History solution constipation alendronate 70 mg tablet 70 mg PO QWEEK 09/12/24 Unkn own History calcium 500 mg (as 1 tab PO BID 09/12/24 Unknow n History carbonate)-vitamin D3 5 mcg (200 unit) tablet (Oyster Shell Calcium-Vitamin D3) cetirizine 10 mg tablet 10 mg PO Q12H PRN allergy sy mptoms 09/12/24 Unknown History ezetimibe 10 mg tablet 10 mg PO QDAY 09/12/24 Unkno wn History hydroxyzine HCl 10 mg tablet 10 mg PO 4X/DAY 09/12/24 Unknown History tizanidine 4 mg tablet 4 mg PO BID 09/12/24 Unknown History mometasone-formoterol HFA 200 2 puff inhalation BID #1 3 grams 09/18/24 Unknown Rx mcg-5 mcg/actuation aerosol inhaler (Dulera) tiotropium bromide 2.5 2 puff inhalation QDAY #4 gr ams 09/20/24 Unknown Rx mcg/actuation mist for inhalation (Spiriva Respimat) Allergy/AdvReac Type Severity Reaction Status Date / Time hydrocodone AdvReac NEEDS Verified 12/11/24 14:28 FOLLOW-UP oxycodone AdvReac NEEDS Verified 12/11/24 14:28 FOLLOW-UP Unaparj-HGP-QxN Reductase AdvReac Constipatio Verified 12/11/24 14:28 Inhibitor n Family History Mother Schizophrenia Sister Depression Sister Depression Surgical History Corneal transplant status Hx of tonsillectomy History of knee replacement History of lumbar surgery History of cataract surgery History of tubal ligation Social History household members: other details: lives with son Smoking Status: Heavy Smoker (>10/day) alcohol intake: never substance use type: does not use caffeine: Yes Type: coffee Number of servings: 3 and tea Number of servings: 1 seatbelt use: sometimes do you feel safe at home: Yes Review of Systems (Anesthesia) ROS Narrative System reviewed and no additional complaints, except as documented. 12/17/24 1154 <Electronically signed by Louis Lugo MD > Date _ Louis Lugo MD Cosigner Signature: Date CC: ~ Signed [facility] Work Phone: [phone] 311-805309-15-[address] [facility] Medical Records Department [address] [place] [id number] Anesthesia Postop Eval I 12/17/24 1303 MR#: [id number] Acct: [id number] Name: SILVIA ROSADO Rep #:[id number] : 1950 74 From: Natali langley CRNA PCP: FAISAL ORO [place] [place] C Location: [place] [address] Anesthesia: Postop Eval I Current Vital Signs Temperature: 97.4 F Pulse Rate: 62 Blood Pressure: 124/64 Respiratory Rate: 16 Pulse Ox: 94 Oxygen Delivery Method: Room Air Assessment Airway patent: Yes Spontaneous unlabored respirations: Yes Mental status: Awake and Calm nausea: No Vomiting: No Anesthesia Complication: No Fluid Hydration Crystalloid volume administer (ml): 200 Total IV fluid infused: 200 Progress Note Anesthesia document: Postop Eval 1 completed: Yes 12/17/24 1304 alix LUMBER CARRIER> Date _ Natali Galaviz LUMBER CARRIER Cosigner Signature: Date CC: ~ Signed [facility]09-15-2025 Procedure note [facility] Medical Records Department [address] [place] [address] Operative Report 12/17/24 1302 MR#: [id number] Acct: [id number] Name: SILVIA ROSADO Rep #:[id number] : 1950 74 From: Brandon Cuellar MD PCP: FAISAL ORO Status[facility] Location: [place] [address] Operative Report (Standard) Operative Information Date of Procedure: 12/17/24 Pre-Operative Diagnosis: Lumbosacral radiculopathy, lumbosacral degenerative disc disease, lumbosacral spinal stenosis Post-Operative Diagnosis: Lumbosacral radiculopathy, lumbosacral degenerative disc disease, lumbosacral spinal stenosis Surgery/Procedure Performed: Diagnostic/therapeutic caudal epidural steroid injection under fluoroscopic guidance 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 BLOOD LOSS: Minimal. COMPLICATIONS: None. DESCRIPTION OF PROCEDURE: History and physical of today was reviewed. Risks and benefits of the procedure were explained. The patient understood and agreedto proceed. Informed consent was obtained. IV inserted per routine protocol. The patient was taken to the operating room and placed in the proneposition with a pillow positioned underneath the abdomen. The lower back and tailbone area was prepped and draped in a sterile fashion using iodine x3. Under fluoroscopy guidance on a lateral view, the caudal space was identified. The skin and subcutaneous tissue was anesthetized with approximately3 mL of 1% lidocaine using a 25-gauge regular needle. Under direct visualization with fluoroscopy, u sing a 22-gauge 3-1/2-inch spinal needle, the needle was advanced via the skin through the sacral hiatus. The tip of the needle was passed through the sacrococcygeal ligament and advanced to approximately S4 area. After negative aspiration of blood or CSF, a total of 3 mL of contrast was injected to confirm correct placement of the needle as well as cephalad spread. The spread was followed to approximately L5 area. After confirmation on AP as well as lateral view and repeated negative aspiration, a total of 15 mL of preservative-free 0.125% Marcaine with 80 mg of Depo-Medrol was injected easily. The needle was then removed intact. The patient experienced no sign or symptoms of intrathecal or intravascular injection. The patient experienced no paresthesia. The procedure was completed without any apparent difficulty or anycomplications. The patient appeared to tolerate it well. ASSESSMENT AND PLAN: This is a 74-year-old female with Lumbosacral radiculopathy, lumbosacral spinal stenosis, lumbosacral degenerative disc disease, status post diagnostic/therapeutic caudal epidural steroid injection under fluoroscopic guidance, patient will continue her current medications, patient will follow-up inapproximately 2 weeks for reevaluation. Surgical Findings: none Complications Complications: No Admit VTE Documentation VTE Present on Admission: No VTE Mechan Device Prophylaxis: None VTE Pharm Prophylaxis ordered?: No 12/17/24 1304 Cosigner Signature (if applicable): CC: FAISAL OMER; Dr. Brandon Cuellar MD~ Signed [facility]09-15-[address] [facility] Medical Records Department [address] [place] [address] Pre-Anesthesia Evaluation 12/17/24 1154 MR#: [id number] Acct: [id number] Name: ALONZOSILVIA JONEL Rep #:[id number] : 1950 74 From: Louis Lugo MD PCP: FAISAL ORO [place] [place] C [place] [facility]SA Classification* ASA Classification ASA Classification: 3 Assessment & Plan Anesthesia* Anesthesia Assessment Anesthesia Assessment: Discussed sedation and/or anesthesia options, risks, benefits, and alternatives with patient/parents/legal guardian/POA. Questions invited. The patient/parents/legal guardian/POA seems to understand and agrees to proceedwith anesthesia plan. Reviewed the physical assessment, medical history, allergy history and patient home medications list prior to surgery/procedure/anesthetic and documented any changes. Performed airway and anesthesia risk assessments. Anesthesia Type Anesthesia Type: MAC Anesthesia Focused Assessment* Airway Assessment Mouth opens: >3 cm Mallampati Score: II Labs Anesthesia Preop lab: CBC WBC 9.9 K/mm3 (4.4-11.0) 09/12/24 13:58 09/12/24 RBC 4.57 M/mm3 (4.2-5.4) 09/12/24 13:58 09/12/24 Hgb 13.2 g/dL (12.0-15.0) 09/12/24 13:58 09/12/24 Hct 40.3 % (37-47) 09/12/24 13:58 09/12/24 Plt Count 235 K/mm3 (150-450) 09/12/24 13:58 09/12/24 CHEMISTRY Potassium 4.5 mmol/L (3.3-5.1) 09/12/24 13:58 09/12/24 Sodium 136 mmol/L (133-145) 09/12/24 13:58 09/12/24 Magnesium 2.1 mg/dL (1.5-2.2) 09/12/24 13:58 09/12/24 BUN 23 mg/dL (4-19) H 09/12/24 13:58 09/12/24 Creatinine 0.94 mg/dL (0.70-1.20) 09/12/24 13:58 09/12/24 Glucose 95 mg/dL (70-99) 09/12/24 13:58 09/12/24 POC Glucose 138 mg/dL (74-106) H 09/03/24 09:23 09/03/24 TSH 2.92 uIU/mL (0.358-3.74) 05/31/22 14:35 COAG PT 13.9 SECONDS (11.7-14.9) 04/15/21 10:05 Pre-Assessment Diagnosis/Proposed Procedure Planned Operative Procedure(s): CAUDAL EPIDURAL STEROID INJECTION UNDER FLUOROSCOPY Anesthesia History Anesthesia History - protection consultant: Anesthesia History - protection consultant Hx Hospitalization No 12/11/24 14:33 Any Problems With Anesthesia No 12/11/24 14:33 Cholinesterase deficiency No 12/11/24 14:33 You/Your Family Experience No 12/11/24 14:33 fever (hyperthermia) with Relationship Recent Exposure to Contagious No 09/03/24 09:24 Disease Does patient have nerve No 12/11/24 14:33 stimulator Patient instructed to have device shut off --Does patient have Pacemaker or ICD? When Was Last Pacemaker Check QUESTION #4 FULL TEXT: You/Your Family Experience fever (hyperthermia) with Anesthesia Last Oral Intake Last Oral intake: Last Oral Intake NPO since Meds taken in AM with sips of water? 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 - protection consultant: PONV - protection consultant Female Yes 12/11/24 14:33 HX of Motion Sickness No 12/11/24 14:33 HX of N/V After Surgery No 12/11/24 14:33 Non-Smoker No 12/11/24 14:33 Duration of Surgery greater No 12/11/24 14:33 than 60 minutes Number of Risk Factors 1 12/11/24 14:33 PONV Score Low Risk 12/11/24 14:33 Height & Weight Height & Weight: Anesthesia: Height & Weight Height 5 ft 3 in 09/12/24 12:38 Respiratory Assessment Respiratory Assessment - protection consultant: Respiratory Tract Infection Hx - protection consultant Hx Respiratory Tract Infection No 12/11/24 14:33 STOP Sleep Apnea STOP Sleep Apnea - protection consultant: STOP Sleep Apnea - protection consultant Hx Hypertension Yes: CONTROLLED WITH MED 12/11/24 14:33 Hx Sleep Apnea No 12/11/24 14:33 CPAP No 12/11/24 14:33 BIPAP No 12/11/24 14:33 Do you snore loudly (louder No 12/11/24 14:33 than talking or can be heard Do you often feel tired/ No 12/11/24 14:33 fatigued/ sleepy during daytime? Has anyone observed you stop No 12/11/24 14:33 breathing during sleep? STOP Results Negative 12/11/24 14:33 QUESTION #5 FULL TEXT : Do you snore loudly (louder than talking or can be heard through closeddoors)? Tobacco Use History Tobacco Use History - protection consultant: Tobacco Use History - protection consultant Tobacco Use Smoking Status Heavy Smoker (>10/day) 12/11/24 14:33 Hx Tobacco Use Yes 12/11/24 14:33 Years Smoking Packs Smoked per Day Smoking Cessation Date was within the last 15 years Hx Smoking Cessation Date 08/22/20 10/30/24 13:17 Hx Smoking Cessation No 12/11/24 14:33 Counseling Hematologic Medial History Hematologic Hx - protection consultant: Hematologic Medical Hx - clinical documentation spec Hx of Blood Transfusion No 12/11/24 14:33 Hx of Transfusion in last 3 No 12/11/24 14:33 Months Date of Last Transfusion (if within last 3 months) Ever experience any problems No 12/11/24 14:33 with transfusion(s)? Specify any problems Hx of Preganancy in last 3 N/A 12/11/24 14:33 Months Nurse Filling Out Transfusion NBUCHER 12/11/24 14:33 & Questions: Date: 12/11/24 12/11/24 14:33 Time: 14:34 12/11/24 14:33 Patient unable to answer at this time (ie. confused, unrespo /Reproduction History /Reproductive History - protection consultant: /Reproductive Hx- protection consultant Hx Now Gestational Age (in weeks): EDC: Hx Hx Para Hx Section SAB No 12/11/24 14:33 Active Medications Active Medications: Current Medications Generic Name Dose Route Start Last Admin Trade Name Freq PRN Reason Stop Dose Admin Lactated Ringer's 1,000 mls @ 15 mls/hr 12/17/24 10:30 12/17/24 11:49 IV 15 mls/hr .Q48H CARRINGTON Administration Lactated Ringer's 1,000 mls @ 15 mls/hr 12/17/24 11:45 IV .Q48H CARRINGTON PFSH Medical History Walker as ambulation aid Uses wheelchair Gastric reflux Arthritis Bipolar disorder Depression Anxiety Migraine headache Dietary restriction History of diverticulitis Chronic cough History of echocardiogram Hypertension Cardiology follow-up encounter COPD (chronic obstructive pulmonary disease) Shortness of breath on exertion Ambulates with cane High cholesterol Smoker History of edema History of CHF (congestive heart failure) Fall Hyperlipidemia Nicotine dependence History of pulmonary embolus (PE) (07/13/20) (HFpEF) heart failure with preserved ejection fraction (07/13/20) Pericardial effusion without cardiac tamponade (07/13/20) Essential (primary) hypertension Anasarca Degeneration of intervertebral disc of lumbosacral region Spondylosis of lumbosacral region without myelopathy or radiculopathy Bilateral sacroiliitis Sacrococcygeal disorders, not elsewhere classified Bipolar disorder Diabetes Home Medications ?Medication ?Instructions ?Recorded ?Last Taken ?Type docusate sodium 100 mg capsule 100 mg PO BID 12/14/17 04/08/24 History (DOK) escitalopram oxalate 10 mg tablet 10 mg PO QHS 8 04/08/24 History lisinopril 5 mg tablet 5 mg PO LUNCH #30 tabs 08/1204/09/24 Rx buspirone 10 mg tablet 20 mg PO TID Anxiety 09/03/24 History atenolol 50 mg tablet 50 mg PO BID 09/11/20 History gabapentin 800 mg tablet 800 mg PO TID 10/28/2109/03 History multivitamin with folic acid 400 1 tab PO DAILY 04/08/24 History mcg tablet (Daily-Dmitri (with folic acid)) sumatriptan succinate 100 mg tablet 100 mg PO Q2H PRN migraines 05/31/22 04/08/24 History furosemide 40 mg tablet 40 mg PO DAILY 08/08/2308/26 History bisacodyl 5 mg tablet,delayed 5 mg PO DAILY 11/25/23 0 04/08/24 History release buprenorphine 10 mcg/hour weekly 1 patch transdermal Q 7D 11/25/23 04/09/24 History transdermal patch metformin 500 mg tablet 1,000 mg PO BIDCM 11/25/23 0 04/08/24 History quetiapine 200 mg tablet 200 mg PO QHS 11/25/2304/08 History quetiapine 400 mg tablet (Seroquel) 400 mg PO QHS 11/0304/08/24 History albuterol sulfate 90 mcg/actuation 2 puff inhalation Q 6H PRN 03/27/24 04/08/24 Rx aerosol inhaler shortness of breath or wheez ing #8.5 grams pantoprazole 20 mg tablet,delayed 20 mg PO Q12H 3 luigi hs #180 tabs 04/26/24 09/03/24 Rx release lactulose 10 gram/15 mL oral 15 - 30 ml PO DAILY PRN 0 05/17/24 Unknown History solution constipation alendronate 70 mg tablet 70 mg PO QWEEK 09/12/24 Unkn own History calcium 500 mg (as 1 tab PO BID 09/12/24 Unknow n History carbonate)-vitamin D3 5 mcg (200 unit) tablet (Oyster Shell Calcium-Vitamin D3) cetirizine 10 mg tablet 10 mg PO Q12H PRN allergy sy mptoms 09/12/24 Unknown History ezetimibe 10 mg tablet 10 mg PO QDAY 09/12/24 Unkno wn History hydroxyzine HCl 10 mg tablet 10 mg PO 4X/DAY 09/12/24 Unknown History tizanidine 4 mg tablet 4 mg PO BID 09/12/24 Unknown History mometasone-formoterol HFA 200 2 puff inhalation BID #1 3 grams 09/18/24 Unknown Rx mcg-5 mcg/actuation aerosol inhaler (Dulera) tiotropium bromide 2.5 2 puff inhalation QDAY #4 gr ams 09/20/24 Unknown Rx mcg/actuation mist for inhalation (Spiriva Respimat) Allergy/AdvReac Type Severity Reaction Status Date / Time hydrocodone AdvReac NEEDS Verified 12/11/24 14:28 FOLLOW-UP oxycodone AdvReac NEEDS Verified 12/11/24 14:28 FOLLOW-UP Arydgjj-TFW-AuD Reductase AdvReac Constipatio Verified 12/11/24 14:28 Inhibitor n Family History Mother Schizophrenia Sister Depression Sister Depression Surgical History Corneal transplant status Hx of tonsillectomy History of knee replacement History of lumbar surgery History of cataract surgery History of tubal ligation Social History household members: other details: lives with son Smoking Status: Heavy Smoker (>10/day) alcohol intake: never substance use type: does not use caffeine: Yes Type: coffee Number of servings: 3 and tea Number of servings: 1 seatbelt use: sometimes do you feel safe at home: Yes Review of Systems (Anesthesia) ROS Narrative System reviewed and no additional complaints, except as documented. 12/17/24 1154 > Date _ Louis Harrsi Signature: Date CC: ~ Signed [facility]08-26-2025 Note. MICRO - Microbiology PROCEDURE: Urine Culture [*1] SOURCE: Urine, Clean Catch BODY SITE: COLLECTED DATE/TIME: 11/26/2024 16:39 EDT RECEIVED DATE/TIME: 11/26/2024 19:04 EDT START DATE/TIME: 11/26/2024 19:04 EDT FREE TEXT SOURCE: FINAL REPORTS Final Report [] Verified Date/Time/Personnel: 11/27/2024 14:06 EDT 10,000 - 50,000 cfu/ml Multiple bacterial morphotypes present. Probable Contamination. Suggest recollection if clinically indicated. PRELIMINARY REPORTS Preliminary Report [] Verified Date/Time/Personnel: 11/26/2024 19:59 EDT Specimen received in lab. Performing Locations *1: This test was performed at: [facility], [address] [place] [address], [facility] , [facility]06-27-2025 Note. MICRO - Microbiology PROCEDURE: Urine Culture [*1] SOURCE: Urine, Clean Catch BODY SITE: COLLECTED DATE/TIME: 09/26/2024 16:16 EDT RECEIVED DATE/TIME: 09/26/2024 21:29 EDT START DATE/TIME: 09/26/2024 21:29 EDT FREE TEXT SOURCE: FINAL REPORTS Final Report [] Verified Date/Time/Personnel: 09/28/2024 07:41 EDT 50,000 - 100,000 cfu/ml Multiple bacterial morphotypes present. Probable Contamination. Suggest recollection if clinically indicated. PRELIMINARY REPORTS Preliminary Report [] Verified Date/Time/Personnel: 09/27/2024 10:31 EDT Culture results pending. Preliminary Report [] Verified Date/Time/Personnel: 09/26/2024 23:00 EDT Specimen received in lab. Performing Locations *1: This test was performed at: [facility], [address] [place] [address], [id number] , [facility]06-02-[address] [facility] Medical Records Department [address] [place] [address] Anesthesia Postop Eval II 09/03/24 1039 MR#: [id number] Acct: [id number] Name: SILVIA ROSADO Rep #:[id number] : 1950 74 From: Yovanny Gardner MD PCP: Dr. Bernie Jovel, DO Status:REG SDC Y Race: C Location: [place] [address] Anesthesia Postop Eval I Sum Postop Eval Completion status Anesthesia document: Postop Eval 1 completed: Yes Anesthesia Postop Eval I Summary Anesthesia Postop Eval I Summary: Anesthesia Postop Eval I: Assessment Summary Airway patent Yes 09/03/24 10:22 [email or web address] Spontaneous unlabored Yes 09/03/24 10:22 [email or web address] respirations Mental status Awake,Calm 09/03/24 10:22 [email or web address] nausea No 09/03/24 10:22 [email or web address] Vomiting No 09/03/24 10:22 [email or web address] Anesthesia Postop Eval I: Fluid Summary Crystalloid volume administer 200 09/03/24 10:22 [email or web address] (ml) Colloids volume administered ( ml) Blood Product volume administered (ml) Total IV fluid infused 200 09/03/24 10:22 [email or web address] Anesthesia Postop Eval I: Summary Notes Anesthesia Complication No 09/03/24 10:22 [email or web address] Anesthesia Complication Comment: Post-operative progress note Anesthesia: Postop Eval II Evaluation Mental status: Awake Pain Level: 0 nausea: No Vomiting: No Complications Anesthesia Complication: No 09/03/24 1039 MD> Date _ Yoavnny Jj Harris Signature: Date CC: ~ Signed [facility]06-02-[address] [facility] Medical Records Department [address] [place] [address] Anesthesia Postop Eval I 09/03/24 1021 MR#: [id number] Acct: [id number] Name: SILVIA ROSADO Rep #:[id number] : 1950 74 From: Grayson Ohara PCP: Dr. Bernie Jovel, DO Status:REG SDC Y Race: C Location: [place] [address] Anesthesia: Postop Eval I Current Vital Signs Temperature: 97.6 F Pulse Rate: 60 Blood Pressure: 120/65 Respiratory Rate: 16 Pulse Ox: 97 Oxygen Delivery Method: Room Air Assessment Airway patent: Yes Spontaneous unlabored respirations: Yes Mental status: Awake and Calm nausea: No Vomiting: No Anesthesia Complication: No Fluid Hydration Crystalloid volume administer (ml): 200 Total IV fluid infused: 200 Progress Note Anesthesia document: Postop Eval 1 completed: Yes 09/03/24 1022 > Date _ Grayson Harris Signature: Date CC: ~ Signed [facility]06-02-2025 Procedure note [facility] Medical Records Department [address] [place] [address] Operative Report 09/03/24 1009 MR#: [id number] Acct: [id number] Name: SILVIA ROSADO Rep #:[id number] : 1950 74 From: Brandon Cuellar MD PCP: Dr. 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: No Type of Anesthesia: Local MAC RN Documented Start/Stop Times: Operation Date: 09/03/24 10:25 Case Time Into Pre-Op 09/03/24 08:43 Anesthesia Start 09/03/24 09:59 Into Room 09/03/24 09:59 Procedure Start 09/03/24 10:04 Procedure End 09/03/24 10:08 Procedure Start Time: 10:09 Procedure Stop Time: 10:09 Select all DRAINS/GRAFTS/IMPLANTS that apply: None Estimated Blood Loss: 0 Specimen collected: No Description of surgery: PREOPERATIVE DIAGNOSIS: Cervical spondylosis, cervical degenerative disc disease, cervical facet arthropathy POSTOPERATIVE DIAGNOSIS:Cervical spondylosis, cervical degenerative disc disease, cervical facet arthropathy PROCEDURE PERFORMED: Right sided cervical medial branch block at C3, C4, C5, andC6. ANESTHESIA: MAC. BLOOD LOSS: Minimal. COMPLICATIONS: None. DESCRIPTION OF PROCEDURE: History and physical of today was reviewed. Risks and benefits of the procedure were explained. The patient understood and agreedto proceed. Informed consent was obtained. IV inserted per routine protocol. The patient was taken to the operating room and placed in the proneposition with a pillow positioned underneath the chest. The neck area was prepped and draped in a sterile fashion using iodine x3. Under fluoroscopy guidance on an AP view, the C3 through C6 vertebral bodies were visualized at approximately 10-degree angle, starting on the right C3, ending on the right C6, passing through the C4 and C5. Using a 25-gauge 3-1/2-inch spinal needle, the needle was advanced via the skin. The tip of the needle was maneuvered and directed towards the epiphyseal junction of each corresponding vertebra. Once the tip ofthe needle was at the vicinity of the medial branch, the needle was pulled approximately 2 mm off the bone. After negative aspiration of blood or CSF and confirmation on AP, oblique as well as lateral view, a total of 4 mL of preservative-free 0.25% Marcaine with 80 mg of Depo-Medrol was injected in divided doses between those four levels. The needles were then removed intact. The patient experienced no sign or symptoms of intrathecal or intravascular injection. The patient experienced no paresthesia. The procedure was completedwithout any apparent difficulty or any complications. The patient appeared to tolerate it well. ASSESSMENT AND PLAN: This is a 74-year-old female with cervical spondylosis, cervical degenerative disc disease, cervical facet arthropathy status post right-sided cervical medialbranch block C3-C6, patient will continueher current medications, patient will follow-up in approximately 1 to 2 weeks for reevaluation. Surgical Findings: 0 Complications Complications: No Admit VTE Documentation VTE Present on Admission: No VTE Mechan Device Prophylaxis: None VTE Pharm Prophylaxis ordered?: No 09/03/24 1010 Cosigner Signature (if applicable): CC: Dr. Brandon Cuellar MD; Dr. Bernie Jovel DO~ Signed [facility]06-02-[address] [facility] Medical Records Department [address] [place] [address] Pre-Anesthesia Evaluation 09/03/24 0941 MR#: [id number] Acct: [id number] Name: SILVIA ROSADO Rep #:[id number] : 1950 74 From: Yovanny Gardner MD PCP: Dr. Bernie Jovel DO Status:REG SDC Y Race: C Location: [place] [address] ASA Classification* ASA Classification ASA Classification: 3 (hx CHF, hx PE, HTN, asthma/COPD, GERD, T2DM. Please use only versed/fentanylfor her ) Assessment & Plan Anesthesia* Anesthesia Assessment Anesthesia Assessment: Discussed sedation and/or anesthesia options, risks, benefits, and alternatives with patient/parents/legal guardian/POA. Questions invited. The patient/parents/legal guardian/POA seems to understand and agrees to proceedwith anesthesia plan. Reviewed the physical assessment, medical history, allergy history and patient home medications list prior to surgery/procedure/anesthetic and documented any changes. Performed airway and anesthesia risk assessments. Anesthesia Type Anesthesia Type: MAC Anesthesia Focused Assessment* Temperature: 97.5 F Pulse Rate: 57 Blood Pressure: 134/73 Respiratory Rate: 20 Pulse Ox: 96 Oxygen Delivery Method: Room Air Airway Assessment Mouth opens: >3 cm Mallampati Score: III Teeth Condition: Missing (poor dentition) Neck Range of motion (ROM): Full ROM Focused Labs Anesthesia Preop lab: CBC WBC 11.3 K/mm3 (4.4-11.0) H 06/15/23 10:20 4 RBC 4.50 M/mm3 (4.2-5.4) 06/15/23 10:20 06/15/23 Hgb 12.4 g/dL (12.0-15.0) 06/15/23 10:20 06/15/23 Hct 38.5 % (37-47) 06/15/23 10:20 06/15/23 Plt Count 290 K/mm3 (150-450) 06/15/23 10:20 06/15/23 CHEMISTRY Potassium 4.1 mmol/L (3.5-5.1) 06/15/23 10:20 06/15/23 Sodium 137 mmol/L (136-145) 06/15/23 10:20 06/15/23 Magnesium 2.3 mg/dL (1.6-2.6) 07/13/20 13:08 07/13/20 BUN 19 mg/dL (7-18) H 06/15/23 10:20 06/15/23 Creatinine 1.09 mg/dL (0.55-1.02) H 06/15/23 10:20 Glucose 211 mg/dL (74-106) H 06/15/23 10:20 06/15/23 POC Glucose 132 mg/dL (74-106) H 06/18/24 10:57 06/18/24 TSH 2.92 uIU/mL (0.358-3.74) 05/31/22 14:35 COAG PT 13.9 SECONDS (11.7-14.9) 04/15/21 10:05 Pre-Assessment Diagnosis/Proposed Procedure Planned Operative Procedure(s): (R) Cervical MEDIAL BRANCH BLOCK AT C3 C4 C5 C6 UNDER FLUOROSCOPY Anesthesia History Anesthesia History - protection consultant: Anesthesia History - protection consultant Hx Hospitalization No 08/30/24 10:57 Any Problems With Anesthesia No 08/30/24 10:57 Cholinesterase deficiency No 08/30/24 10:57 You/Your Family Experience No 08/30/24 10:57 fever (hyperthermia) with Relationship Recent Exposure to Contagious No 09/03/24 09:24 Disease Does patient have nerve No 08/30/24 10:57 stimulator Patient instructed to have device shut off --Does patient have Pacemaker No 09/03/24 09:24 or ICD? When Was Last Pacemaker Check QUESTION #4 FULL TEXT: You/Your Family Experience fever (hyperthermia) with Anesthesia Last Oral Intake Last Oral intake: Last Oral Intake NPO since 05:00 09/03/24 09:24 Meds taken in AM with sips of Yes 09/03/24 09:24 water? Meds patient instructed to see medlist 09/03/24 09:24 take am of surgery PONV PONV - protection consultant: PONV - protection consultant Female Yes 08/30/24 10:57 HX of Motion Sickness Yes 08/30/24 10:57 HX of N/V After Surgery No 08/30/24 10:57 Non-Smoker No 08/30/24 10:57 Duration of Surgery greater No 08/30/24 10:57 than 60 minutes Number of Risk Factors 2 08/30/24 10:57 PONV Score Moderate Risk 08/30/24 10:57 Height & Weight Height & Weight: Anesthesia: Height & Weight Height 5 ft 3 in 09/03/24 09:24 Weight: 114 kg 09/03/24 09:24 Body Mass Index (BMI) 44.5 09/03/24 09:24 Respiratory Assessment Respiratory Assessment - protection consultant: Respiratory Tract Infection Hx - protection consultant Hx Respiratory Tract Infection No 08/30/24 10:57 STOP Sleep Apnea STOP Sleep Apnea - protection consultant: STOP Sleep Apnea - protection consultant Hx Hypertension Yes: on meds 08/30/24 10:57 Hx Sleep Apnea No 08/30/24 10:57 CPAP No 06/18/24 11:40 BIPAP No 05/17/24 12:58 Do you snore loudly (louder No 08/30/24 10:57 than talking or can be heard Do you often feel tired/ No 08/30/24 10:57 fatigued/ sleepy during daytime? Has anyone observed you stop No 08/30/24 10:57 breathing during sleep? STOP Results Negative 08/30/24 10:57 QUESTION #5 FULL TEXT : Do you snore loudly (louder than talking or can be heard through closeddoors)? Tobacco Use History Tobacco Use History - protection consultant: Tobacco Use History - protection consultant Tobacco Use Smoking Status Heavy Smoker (>10/day) 08/30/24 10:57 Hx Tobacco Use Yes 08/30/24 10:57 Years Smoking Packs Smoked per Day Smoking Cessation Date was within the last 15 years Hx Smoking Cessation Date 08/22/20 08/30/24 10:57 Hx Smoking Cessation No 08/30/24 10:57 Counseling Hematologic Medial History Hematologic Hx - protection consultant: Hematologic Medical Hx - clinical documentation spec Hx of Blood Transfusion No 08/30/24 10:57 Hx of Transfusion in last 3 No 08/30/24 10:57 Months Date of Last Transfusion (if within last 3 months) Ever experience any problems No 08/30/24 10:57 with transfusion(s)? Specify any problems Hx of Preganancy in last 3 No 08/30/24 10:57 Months Nurse Filling Out Transfusion JZOLLINGE 08/30/24 10:57 & Questions: Date: 08/30/24 08/30/24 10:57 Time: 11:00 08/30/24 10:57 Patient unable to answer at this time (ie. confused, unrespo /Reproduction History /Reproductive History - protection consultant: /Reproductive Hx- protection consultant Hx Now No 08/30/24 10:57 Gestational Age (in weeks): EDC: Hx Hx Para Hx Section SAB No 08/30/24 10:57 Active Medications Active Medications: Current Medications Generic Name Dose Route Start Last Admin Trade Name Freq PRN Reason Stop Dose Admin Lactated Ringer's 1,000 mls @ 15 mls/hr 09/03/24 08:45 09/03/24 09:27 IV 15 mls/hr .Q48H CARRINGTON Administration PFSH Medical History (Updated 08/30/24 @ 10:57 by Lillie Lee) Arthritis Bipolar disorder Depression Anxiety Migraine headache Dietary restriction History of diverticulitis Chronic cough History of echocardiogram Hypertension Cardiology follow-up encounter COPD (chronic obstructive pulmonary disease) Shortness of breath on exertion Ambulates with cane High cholesterol Smoker History of edema History of CHF (congestive heart failure) Fall Hyperlipidemia Nicotine dependence History of pulmonary embolus (PE) (07/13/20) (HFpEF) heart failure with preserved ejection fraction (07/13/20) Pericardial effusion without cardiac tamponade (07/13/20) Essential (primary) hypertension Anasarca Degeneration of intervertebral disc of lumbosacral region Spondylosis of lumbosacral region without myelopathy or radiculopathy Bilateral sacroiliitis Sacrococcygeal disorders, not elsewhere classified Bipolar disorder Diabetes Home Medications ?Medication ?Instructions ?Recorded ?Last Taken ?Type docusate sodium 100 mg capsule 100 mg PO BID 12/14/17 04/08/24 History (DOK) escitalopram oxalate 10 mg tablet 10 mg PO QHS 8 04/08/24 History lisinopril 5 mg tablet 5 mg PO LUNCH #30 tabs 08/1204/09/24 Rx buspirone 10 mg tablet 20 mg PO TID Anxiety 1 09/03/24 History atenolol 50 mg tablet 50 mg PO BID 09/11/20 History gabapentin 800 mg tablet 800 mg PO TID 10/28/2109/03 History multivitamin with folic acid 400 1 tab PO DAILY 04/08/24 History mcg tablet (Daily-Dmitri (with folic acid)) sumatriptan succinate 100 mg tablet 100 mg PO Q2H PRN migraines 05/31/22 04/08/24 History furosemide 40 mg tablet 40 mg PO DAILY 08/08/2308/26 History amlodipine 5 mg tablet 2.5 mg PO .q 3 days 11/25/23 04/08/24 History bisacodyl 5 mg tablet,delayed 5 mg PO DAILY 11/25/23 0 04/08/24 History release buprenorphine 10 mcg/hour weekly 1 patch transdermal Q 7D 11/25/23 04/09/24 History transdermal patch metformin 500 mg tablet 1,000 mg PO BIDCM 11/25/23 0 04/08/24 History quetiapine 200 mg tablet 200 mg PO QHS 11/25/2304/08 History quetiapine 400 mg tablet (Seroquel) 400 mg PO QHS 08/06/2504/08/24 History albuterol sulfate 90 mcg/actuation 2 puff inhalation Q 6H PRN 03/27/24 04/08/24 Rx aerosol inhaler shortness of breath or wheez ing #8.5 grams pantoprazole 20 mg tablet,delayed 20 mg PO Q12H 3 luigi hs #180 tabs 04/26/24 09/03/24 Rx release lactulose 10 gram/15 mL oral 15 - 30 ml PO DAILY PRN 0 05/17/24 Unknown History solution constipation fluticasone fur. 100 mcg-umeclid 1 inh inhalation Q24H #60 ea 07/31/24 Unknown Rx 62.5 mcg-vilant 25 mcg inhalat.powder (Trelegy Ellipta) Allergy/AdvReac Type Severity Reaction Status Date / Time hydrocodone AdvReac NEEDS Verified 09/03/24 09:13 FOLLOW-UP oxycodone AdvReac NEEDS Verified 09/03/24 09:13 FOLLOW-UP Xnpuhtr-TYN-DiT Reductase AdvReac Constipatio Verified 09/03/24 09:13 Inhibitor n Family History Mother Schizophrenia Sister Depression Sister Depression Surgical History Corneal transplant status Hx of tonsillectomy History of knee replacement History of lumbar surgery History of cataract surgery History of tubal ligation Social History household members: other details: lives with son Smoking Status: Heavy Smoker (>10/day) alcohol intake: never substance use type: does not use caffeine: Yes Type: coffee Number of servings: 3 and tea Number of servings: 1 seatbelt use: sometimes do you feel safe at home: Yes Review of Systems (Anesthesia) ROS Narrative System reviewed and no additional complaints, except as documented. 09/03/2445 > Date _ Yovanny Gardner MD Cosigner Signature: Date CC: ~ Signed [facility]05-08-2025 Note. MICRO - Microbiology PROCEDURE: Urine Culture [*1] SOURCE: Urine BODY SITE: COLLECTED DATE/TIME: 08/07/2024 16:51 EDT RECEIVED DATE/TIME: 08/07/2024 18:55 EDT START DATE/TIME: 08/07/2024 18:56 EDT FREE TEXT SOURCE: FINAL REPORTS Final Report [] Verified Date/Time/Personnel: 08/09/2024 08:20 EDT >100,000 cfu/ml Escherichia coli PRELIMINARY REPORTS Preliminary Report [] Verified Date/Time/Personnel: 08/08/2024 10:03 EDT >100,000 cfu/ml Escherichia coli HERMINIA to follow Preliminary Report [] Verified Date/Time/Personnel: 08/07/2024 19:59 EDT Specimen received in lab. SUSCEPTIBILITY RESULTS Escherichia coli Antibiotic HERMINIA Dilut HERMINIA Inter Ampicillin >16 Resistant Ampicillin/ 8/4 Susceptible Sulbactam Aztreonam <=4 Susceptible Cefazolin 16 Intermediate Ceftazidime/ <=4 Susceptible Avibactam Ceftolozane/ <=2 Susceptible Tazobactam Ceftriaxone <=1 Susceptible Cefuroxime <=4 Susceptible Ciprofloxacin <=0.25 Susceptible Ertapenem <=0.5 Susceptible Gentamicin <=2 Susceptible ID Panel Not Not Applicable Applicable Imipenem <=1 Susceptible Levofloxacin <=0.5 Susceptible Meropenem <=1 Susceptible Minocycline <=4 Susceptible Nitrofurantoin <=32 Susceptible Piperacillin/ <=8 Susceptible Tazobactam Trimethoprim/ <=0.5/9.5 Susceptible Sulfa Performing Locations *1: This test was performed at: [facility], [address] [place] [address], [address] , [facility]04-29-2025 Evaluation note* Diagnosis Onset Date Resolution Status Admit Date Shortness of breath acute July 31, 2024 12:47pm Stage 1 mild COPD by GOLD classification acute July 31, 2024 12:47pm Nicotine dependence chronic July 31, 2024 12:47pm [facility] Work Phone: 1(956) 814-863104-29-2025 Evaluation note* Diagnosis Onset Date Resolution Status Admit Date Shortness of breath acute July 31, 2024 12:47pm Stage 1 mild COPD by GOLD classification acute July 31, 2024 12:47pm Nicotine dependence chronic July 31, 2024 12:47pm (HFpEF) heart failure with preserved ejection fraction July 13, 2020 chronic Jeison 2024 12:54pm Essential (primary) hypertension chronic September 12, 2024 12:54pm History of pulmonary embolus (PE) July 13, 2020 chronic September 12, 2024 12:54pm Hyperlipidemia chronic September 12, 2024 12:54pm [facility] Work Phone: 1(475) 470-724103-17-[address] [facility] Medical Records Department [address] [place] [address] Anesthesia Postop Eval II 06/18/24 1226 MR#: [id number] Acct: [id number] Name: SILVIA ROSADO Rep #:[id number] : 1950 74 From: Josefina Parker PCP: Dr. Bernie Jovel, DO Status:REG SDC Y Race: C Location: [place] [address] Anesthesia Postop Eval I Sum Postop Eval Completion status Anesthesia document: Postop Eval 1 completed: Yes Anesthesia Postop Eval I Summary Anesthesia Postop Eval I Summary: Anesthesia Postop Eval I: Assessment Summary Airway patent Yes 06/18/24 11:48 LUMBER [email or web address].HBARR Spontaneous unlabored Yes 06/18/24 11:48 LUMBER [email or web address].HBARR respirations Mental status Awake 06/18/24 11:48 LUMBER [email or web address].HBARR nausea No 06/18/24 11:48 LUMBER CARRIER.HBARR Vomiting No 06/18/24 11:48 LUMBER [email or web address].HBARR Anesthesia Postop Eval I: Fluid Summary Crystalloid volume administer 10 06/18/24 11:48 LUMBER [email or web address].HBARR (ml) Colloids volume administered ( ml) Blood Product volume administered (ml) Total IV fluid infused 10 06/18/24 11:48 LUMBER [email or web address].HBARR Anesthesia Postop Eval I: Summary Notes Anesthesia Complication No 06/18/24 11:48 LUMBER [email or web address].HBARR Anesthesia Complication Comment: Post-operative progress note Anesthesia: Postop Eval II Evaluation Mental status: Awake Pain Level: 3 nausea: No Vomiting: No 06/18/24 1226 a> Date _ Josefina ca Cosigner Signature: CC: ~ Signed [facility]03-17-[address] [facility] Medical Records Department [address] [place] [address] Anesthesia Postop Eval I 06/18/24 1147 MR#: [id number] Acct: [id number] Name: SILVIA ROSADO Rep #:[id number] : 1950 74 From: Delma Aldana CRNA PCP: Dr. Bernie Jovel, DO Status:REG SDC Y Race: C Location: [place] [address] Anesthesia: Postop Eval I Current Vital Signs Temperature: 97.4 F Pulse Rate: 78 Blood Pressure: 90/55 Respiratory Rate: 14 Pulse Ox: 98 Oxygen Delivery Method: Room Air Assessment Airway patent: Yes Spontaneous unlabored respirations: Yes Mental status: Awake nausea: No Vomiting: No Anesthesia Complication: No Fluid Hydration Crystalloid volume administer (ml): 10 Total IV fluid infused: 10 Progress Note Anesthesia document: Postop Eval 1 completed: Yes 06/18/24 1148 NA> Date _ Delma Aldana LUMBER CARRIER Cosigner Signature: Date CC: ~ Signed [facility]03-17-2025 Procedure note [facility] Medical Records Department [address] [place] [address] Operative Report 06/18/24 1137 MR#: [id number] Acct: [id number] Name: SILVIA ROSADO Rep #:[id number] : 1950 74 From: Brandon Cuellar MD PCP: Dr. Bernie Jovel, DO Status:[facility] Location: [place] [address] Operative Report (Standard) Operative Information Date of Procedure: 06/18/24 Pre-Operative Diagnosis: Lumbosacral radiculopathy, lumbosacral spinal stenosis,lumbosacral degenerative disc disease Post-Operative Diagnosis: Lumbosacral radiculopathy, lumbosacral spinal stenosis, lumbosacral degenerative disc disease Surgery/Procedure Performed: Diagnostic/therapeutic caudal epidural steroid injection under fluoroscopic guidance. 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 ANESTHESIA: MAC. BLOOD LOSS: Minimal. COMPLICATIONS: None. DESCRIPTION OF PROCEDURE: History and physical of today was reviewed. Risks and benefits of the procedure were explained. The patient understood and agreedto proceed. Informed consent was obtained. IV inserted per routine protocol. The patient was taken to the operating room and placed in the proneposition with a pillow positioned underneath the abdomen. The lower back and tailbone area was prepped and draped in a sterile fashion using iodine x3. Under fluoroscopy guidance on a lateral view, the caudal space was identified. The skin and subcutaneous tissue was anesthetized with approximately3 mL of 1% lidocaine using a 25-gauge regular needle. Under direct visualization with fluoroscopy, u sing a 22-gauge 3-1/2-inch spinal needle, the needle was advanced via the skin through the sacral hiatus. The tip of the needle was passed through the sacrococcygeal ligament and advanced to approximately S4 area. After negative aspiration of blood or CSF, a total of 3 mL of contrast was injected to confirm correct placement of the needle as well as cephalad spread. The spread was followed to approximately L5 area. After confirmation on AP as well as lateral view and repeated negative aspiration, a total of 15 mL of preservative-free 0.125% Marcaine with 80 mg of Depo-Medrol was injected easily. The needle was then removed intact. The patient experienced no sign or symptoms of intrathecal or intravascular injection. The patient experienced no paresthesia. The procedure was completed without any apparent difficulty or anycomplications. The patient appeared to tolerate it well. ASSESSMENT AND PLAN: This is a 74-year-old female with lumbosacral radiculopathy, lumbosacral region degenerative disc disease, lumbosacral spinal stenosis, status post Diagnostic/therapeutic caudal epidural steroid injection under fluoroscopic guidance,patient will continue her current medications, patient will follow-up in approximately 2 weeks for reevaluation. Surgical Findings: 0 Complications Complications: No Admit VTE Documentation VTE Present on Admission: No VTE Mechan Device Prophylaxis: None VTE Pharm Prophylaxis ordered?: No 06/18/24 2545 Cosigner Signature (if applicable): CC: Dr. Brandon Cuellar MD; Dr. Bernie Jovel DO~ Signed [facility]05-06-2024 Procedure [facility] 05-23-2023 Procedure [facility]11-15-2023 Note. MICRO - Microbiology PROCEDURE: Urine Culture [*1] SOURCE: Urine, Clean Catch BODY SITE: COLLECTED DATE/TIME: 02/15/2023 10:59 EST RECEIVED DATE/TIME: 02/15/2023 19:12 EST START DATE/TIME: 02/15/2023 19:12 EST FREE TEXT SOURCE: FINAL REPORTS Final Report [] Verified Date/Time/Personnel: 02/16/2023 14:21 EST >100,000 cfu/ml Multiple bacterial morphotypes present. Probable Contamination. Suggest recollection if clinically indicated. Performing Locations *1: This test was performed at: [address] [place], [address]- , [facility] ([place])12-25-2022 Discharge summary Author Joshua Aviles [facility] December 25, 2022 3:41pm Note Date/Time December 25, 2022 3:39pm [facility] Medical Records Department [address] [place] [address] Emergency Department Summary 12/25/22 MR#: [id number] Acct: [id number] Name: SILVIA ROSADO Rep #:[id number] : 1950 72 From: Joshua Aviles MD PCP: Dr. Bernie Jovel, DO Status:PRE ER Location: ED HPI History of Present Illness Chief Complaint: Foreign Body Narrative Narrative: Patient presents with an esophageal impaction for right around 6 hours. She wasmaking pulled pork, the pork was not fully pulled and she tried a tasted, she developed esophageal impaction that she cannot relief. No prior history. [facility] Medical History (HFpEF) heart failure with preserved ejection fraction (07/13/20) Ambulates with cane Anasarca Anxiety Bilateral sacroiliitis Bipolar disorder Bipolar disorder Cardiology follow-up encounter Chronic cough COPD (chronic obstructive pulmonary disease) Degeneration of intervertebral disc of lumbosacral region Depression Diabetes Dietary restriction Essential (primary) hypertension Fall High cholesterol History of CHF (congestive heart failure) History of diverticulitis History of echocardiogram History of edema History of pulmonary embolus (PE) (07/13/20) Hyperlipidemia Hypertension Migraine headache Nicotine dependence Pericardial effusion without cardiac tamponade (07/13/20) Sacrococcygeal disorders, not elsewhere classified Shortness of breath on exertion Smoker Spondylosis of lumbosacral region without myelopathy or radiculopathy Home Medications docusate sodium 100 mg capsule (DOK) 100 mg PO BID 12/14/17 [History Last Taken 01/06/20] escitalopram oxalate 10 mg tablet 10 mg PO QHS 12/14/17 [History Last Taken 01/06/20] quetiapine 400 mg tablet (Seroquel) 600 mg PO QHS 12/14/17 [History Last Taken 01/06/20] tizanidine 4 mg tablet 4 mg PO BID 12/14/17 [History Last Taken 01/06/20] cetirizine 10 mg capsule 10 mg PO QODAY 03/16/19 [History Last Taken 01/06/20] metformin 500 mg tablet 500 mg PO BIDCM ##0 07/15/20 [Rx Last Taken 01/06/20] lisinopril 5 mg tablet 5 mg PO LUNCH #30 tabs 08/12/20 [Rx Last Taken 01/04/22] bisacodyl 5 mg tablet,delayed release 10 mg PO DAILY 08/22/20 [History Last Taken Unknown] buspirone 10 mg tablet 10 mg PO TID PRN Anxiety 08/22/20 [History Last Taken Unknown] atenolol 50 mg tablet 50 mg PO BID 09/11/20 [History Last Taken 12/20/22] amlodipine 5 mg tablet 5 mg PO DAILY 12/23/20 [History Last Taken 11/16/21] buprenorphine 7.5 mcg/hour weekly transdermal patch (Butrans) 1 patch transdermal QWEEK 10/27/21 [History Last Taken 12/18/22] gabapentin 800 mg tablet 800 mg PO TID 10/28/21 [History Last Taken Unknown] multivitamin with folic acid 400 mcg tablet (Daily-Dmitri (with folic acid)) 1 tabPO DAILY 05/31/22 [History Last Taken Unknown] quetiapine 200 mg tablet 200 mg PO DAILY 05/31/22 [History Last Taken Unknown] sumatriptan succinate 100 mg tablet 100 mg PO Q2H PRN migraines 05/31/22 [History Last Taken Unknown] ezetimibe 10 mg tablet 10 mg PO DAILY 06/10/22 [History Last Taken Unknown] albuterol sulfate 90 mcg/actuation aerosol inhaler 2 puff inhalation Q6H PRN shortness of breath or wheezing #8.5 grams 07/23/22 [Rx Last Taken Unknown] umeclidinium 62.5 mcg-vilanterol 25 mcg/actuation powdr for inhalation (Anoro Ellipta) 1 inh inhalation QDAY #60 ea 07/23/22 [Rx Last Taken 12/20/22] diclofenac sodium 100 mg tablet,extended release 24 hr 100 mg PO DAILY PRN arthritis pain 12/15/22 [History Last Taken Unknown] hydroxyzine HCl 25 mg tablet 25 mg PO BID PRN anxiety 12/15/22 [History Last Taken Unknown] Allergy/AdvReac Type Severity Reaction Status Date / Time hydrocodone AdvReac NEEDS Verified 12/25/22 14:16 FOLLOW-UP oxycodone AdvReac NEEDS Verified 12/25/22 14:16 FOLLOW-UP [id number]-[id number] Reductase AdvReac Constipatio Verified 12/25/22 14:16 Inhibitor n Family History (Reviewed 07/23/22 @ 10:08 by Coral Clemons SHIPPING/RECEIVING CLERK, SHIPPING/RECEIVING CLERK-C) Mother Schizophrenia Sister Depression Sister Depression Surgical History Corneal transplant status History of cataract surgery History of knee replacement History of lumbar surgery History of tubal ligation Hx of tonsillectomy Social History (Reviewed 07/23/22 @ 10:08 by Coral Clemons SHIPPING/RECEIVING CLERK, SHIPPING/RECEIVING CLERK-C) household members: other details: lives with son Smoking Status: Current every day smoker tobacco type: cigarettes alcohol intake: never substance use type: does not use caffeine: Yes Type: coffee Number of servings: 1 and tea seatbelt use: sometimes do you feel safe at home: Yes ROS ROS ED ROS Narrative Past medical history: Reviewed Medications: Reviewed Social history: Noncontributory Review of systems: General: No fever Eyes: No visual changes ENT: No upper airway congestion, normal voice Neck: No neck pain Cardiovascular: No chest pain Respiratory: No shortness of breath or cough Gastrointestinal: As in HPI Genitourinary: No dysuria Musculoskeletal: Denies myalgias no difficulty with ambulation Skin: No rash EXAM Physical Exam Narrative Exam Narrative: Physical exam General: She appears somewhat uncomfortable Head: Normocephalic, Atraumatic Eyes: Conjunctiva not pale ENT: Moist mucous membranes Neck: Supple, Nontender, No lymphadenopathy Cardiovascular: Regular rate, Regular rhythm Respiratory: No distress, CTA bilaterally Abdomen: Soft, Nontender, Nondistended Back: Nontender, Normal Inspection. Negative for: CVA tenderness Extremities: Nontender, No edema Skin: Normal color, No rash Const Vital Signs: 12/25/22 14:16 Temperature 97.8 F Temperature Source Temporal Pulse Rate 68 Respiratory Rate 16 Blood Pressure 146/76 H Blood Pressure Mean 99 Pulse Ox 97 Oxygen Delivery Method Room Air MDM MDM MDM Narrative Medical decision making narrative: Patient is given glucagon, however she is unlikely to pass the impaction. I called Friend, she will need to go to the operating room for disimpaction. Otherwise she appears well, vitals are unremarkable she is not anticoagulated. I do not believe she needs blood work or any kind of imaging at this time. Discharge Plan Triage Chief Complaint: Foreign Body ED Provider: Joshua Aviles Dx/Rx/DC Orders Clinical Impression: Food impaction of esophagus, Diabetes, Hypertension Prescriptions: No Action amlodipine 5 mg tablet 5 mg PO DAILY gabapentin 800 mg tablet 800 mg PO TID buprenorphine [Butrans] 7.5 mcg/hour patch weekly 1 patch transdermal QWEEK quetiapine 200 mg tablet 200 mg PO DAILY multivitamin with folic acid [Daily-Dmitri (with folic acid)] 400 mcg tablet 1 tab PO DAILY sumatriptan succinate 100 mg tablet 100 mg PO Q2H PRN (Reason: migraines) ezetimibe 10 mg tablet 10 mg PO DAILY albuterol sulfate 90 mcg/actuation HFA aerosol inhaler 2 puff inhalation Q6H PRN (Reason: shortness of breath or wheezing) Qty: 8.5 6RF Anoro Ellipta 62.5-25 mcg/actuation blister with device 1 inh inhalation QDAY Qty: 60 5RF bisacodyl 5 mg tablet,delayed release (DR/EC) 10 mg PO DAILY Patient Comments: constipation tizanidine 4 MG tablet 4 mg PO BID docusate sodium [DOK] 100 MG capsule 100 mg PO BID escitalopram oxalate 10 MG tablet 10 mg PO QHS quetiapine [Seroquel] 400 MG tablet 600 mg PO QHS cetirizine 10 MG capsule 10 mg PO QODAY buspirone 10 mg tablet 10 mg PO TID PRN (Reason: Anxiety) metformin 500 MG tablet 500 mg PO BIDCM Qty: 0 0RF Patient Comments: diabetic medication Rx Instructions: resume 07/18/2020 diclofenac sodium 100 mg tablet extended release 24 hr 100 mg PO DAILY PRN (Reason: arthritis pain ) hydroxyzine HCl 25 mg tablet 25 mg PO BID PRN (Reason: anxiety) lisinopril 5 mg tablet 5 mg PO LUNCH Qty: 30 11RF atenolol 50 mg tablet 50 mg PO BID Primary Care Provider: Bernie Jovel Referrals: Bernie Jovel DO [Primary Care Provider] - Disposition Disposition: Acute Care Hospital [facility] What to do if you have Problems For any increased pain, shortness of breath, bleeding, nausea or vomiting, chestpain, or any unexpected problems, contact your Primary Care Provider. Call [facility] ([phone]) or report to the closest Emergency Room. Call 911 if necessary. 12/25/22 1541 <Electronically signed by Joshua Aviles MD> Cosigner Signature (if applicable): CC: Dr. Bernie Jovel, DO ~ Signed [facility] Work Phone: 1(930) 957-616909-18-2023 Procedure [facility] 05-29-2022 Note. MICRO - Microbiology PROCEDURE: Urine Culture [*1] [...] Locations *1: This test was performed at: [facility], [address] [place] [address], [facility] , [facility] ([place])05-24-2022 Procedure [facility]11-08-2021 Evaluation note* Diagnosis Onset Date Resolution Status COVID-19 February 09, 2021 acute Dyspnea acute Hypoxia acute Nicotine dependence acute History of pulmonary embolus (PE) July 13, 2020 chronic History of pulmonary embolus (PE) July 13, 2020 chronic (HFpEF) heart failure with p reserved ejection fraction July 13, 2020 acute Dyspnea acute Essential (primary) hypertension acute History of pulmonary embolus (PE) July 13, 2020 chronic Hyperlipidemia chronic Bipolar disorder acute Nicotine dependence acute Stage 1 mild COPD by GOLD classification acute History of pulmonary embolus (PE) July 13, 2020 [facility] Work Phone: 1(424) 272-151704-11-2021 Evaluation note* Diagnosis Onset Date Resolution Status (HFpEF) heart failure with p reserved ejection fraction July 13, 2020 acute Bipolar disorder acute Nicotine dependence acute Stage 1 mild COPD by GOLD classification acute (HFpEF) heart failure with p reserved ejection fraction July 13, 2020 acute Dyspnea acute Essential (primary) hypertension acute History of pulmonary embolus (PE) July 13, 2020 chronic Hyperlipidemia [facility] Work Phone: 1(684) 214-138904-11-2021 Evaluation note* Diagnosis Onset Date Resolution Status Bipolar disorder acute Nicotine dependence acute Stage 1 mild COPD by GOLD classification acute (HFpEF) heart failure with p reserved ejection fraction July 13, 2020 chronic Essential (primary) hypertension chronic History of pulmonary embolus (PE) July 13, 2020 chronic Hyperlipidemia [facility] Work Phone: 1(495) 386-357104-11-2021 Evaluation note* Diagnosis Onset Date Resolution Status Bipolar disorder acute Stage 1 mild COPD by GOLD classification acute (HFpEF) heart failure with p reserved ejection fraction July 13, 2020 chronic Nicotine dependence [facility] Work Phone: 1(854) 657-239104-11-2021 Evaluation note* Diagnosis Onset Date Resolution Status Admit Date (HFpEF) heart failure with preserved ejection fraction July 13, 2020 chronic Jeison 2024 12:54pm Essential (primary) hypertension chronic September 12, 2024 12:54pm History of pulmonary embolus (PE) July 13, 2020 chronic September 12, 2024 12:54pm Hyperlipidemia chronic September 12, 2024 12:54pm [facility] Work Phone: Consult note Author Delma Aldana [facility] Note Date/Time June 18, 2024 11: 48am [facility] Medical Records Department [address] [place] [address] Anesthesia Postop Eval I 06/18/24 1147 MR#: [id number] Acct: [id number] Name: SILVIA ROSADO Rep #:[id number] : 1950 74 From: Delma Aldana CRNA PCP: Dr. Bernie Jovel, DO Status:REG SDC Y Race: C Location: [place] [address] Anesthesia: Postop Eval I Current Vital Signs Temperature: 97.4 F Pulse Rate: 78 Blood Pressure: 90/55 Respiratory Rate: 14 Pulse Ox: 98 Oxygen Delivery Method: Room Air Assessment Airway patent: Yes Spontaneous unlabored respirations: Yes Mental status: Awake nausea: No Vomiting: No Anesthesia Complication: No Fluid Hydration Crystalloid volume administer (ml): 10 Total IV fluid infused: 10 Progress Note Anesthesia document: Postop Eval 1 completed: Yes 06/18/24 1148 <Electronically signed by Delma MELARA NA> Date _ Delma Aldana LUMBER CARRIER Cosigner Signature: Date CC: ~ Signed [facility] Work Phone: Consult note Author Josefina Parker [facility] Note Date/Time June 18, 2024 12: 51pm [facility] Medical Records Department [address] [place] [address] Anesthesia Postop Eval II 06/18/24 1226 MR#: [id number] Acct: [id number] Name: SILVIA ROSADO Rep #:[id number] : 1950 74 From: Josefina Parker PCP: Dr. Bernie Jovel, DO Status:REG SDC Y Race: C Location: [place] [address] Anesthesia Postop Eval I Sum Postop Eval Completion status Anesthesia document: Postop Eval 1 completed: Yes Anesthesia Postop Eval I Summary Anesthesia Postop Eval I Summary: Anesthesia Postop Eval I: Assessment Summary Airway patent Yes 06/18/24 11:48 LUMBER [email or web address].[email or web address] Spontaneous unlabored Yes 06/18/24 11:48 LUMBER [email or web address].HBARR respirations Mental status Awake 06/18/24 11:48 LUMBER [email or web address].HBARR nausea No 06/18/24 11:48 LUMBER CARRIER.HBARR Vomiting No 06/18/24 11:48 LUMBER [email or web address].HBARR Anesthesia Postop Eval I: Fluid Summary Crystalloid volume administer 10 06/18/24 11:48 LUMBER [email or web address].HBARR (ml) Colloids volume administered ( ml) Blood Product volume administered (ml) Total IV fluid infused 10 06/18/24 11:48 LUMBER [email or web address].HBARR Anesthesia Postop Eval I: Summary Notes Anesthesia Complication No 06/18/24 11:48 LUMBER [email or web address].HBARR Anesthesia Complication Comment: Post-operative progress note Anesthesia: Postop Eval II Evaluation Mental status: Awake Pain Level: 3 nausea: No Vomiting: No 06/18/24 1226 <Electronically signed by Josefina villaseñro> Date _ Josefina Cabelloignkarlie Signature: Date CC: ~ Signed [facility] Work Phone: Consult note Author Yovanny Gardner [facility] Note Date/Time September 03, 2024 9:45a m [facility] Medical Records Department [address] [place] [address] Pre-Anesthesia Evaluation 09/03/24 0941 MR#: [id number] Acct: [id number] Name: SILVIA ROSADO Rep #:[id number] : 1950 74 From: Yovanny Gardner MD PCP: Dr. Bernie Jovel, DO Status:REG SDC Y Race: C Location: [place] [address] ASA Classification* ASA Classification ASA Classification: 3 (hx CHF, hx PE, HTN, asthma/COPD, GERD, T2DM. Please use only versed/fentanyl for her ) Assessment & Plan Anesthesia* Anesthesia Assessment Anesthesia Assessment: Discussed sedation and/or anesthesia options, risks, benefits, and alternatives with patient/parents/legal guardian/POA. Questions invited. The patient/parents/legal guardian/POA seems to understand and agrees to proceedwith anesthesia plan. Reviewed the physical assessment, medical history, allergy history and patient home medications list prior to surgery/procedure/anesthetic and documented any changes. Performed airway and anesthesia risk assessments. Anesthesia Type Anesthesia Type: MAC Anesthesia Focused Assessment* Temperature: 97.5 F Pulse Rate: 57 Blood Pressure: 134/73 Respiratory Rate: 20 Pulse Ox: 96 Oxygen Delivery Method: Room Air Airway Assessment Mouth opens: >3 cm Mallampati Score: III Teeth Condition: Missing (poor dentition) Neck Range of motion (ROM): Full ROM Focused Labs Anesthesia Preop lab: CBC WBC 11.3 K/mm3 (4.4-11.0) H 06/15/23 10:20 4 RBC 4.50 M/mm3 (4.2-5.4) 06/15/23 10:20 06/15/23 Hgb 12.4 g/dL (12.0-15.0) 06/15/23 10:20 06/15/23 Hct 38.5 % (37-47) 06/15/23 10:20 06/15/23 Plt Count 290 K/mm3 (150-450) 06/15/23 10:20 06/15/23 CHEMISTRY Potassium 4.1 mmol/L (3.5-5.1) 06/15/23 10:20 06/15/23 Sodium 137 mmol/L (136-145) 06/15/23 10:20 06/15/23 Magnesium 2.3 mg/dL (1.6-2.6) 07/13/20 13:08 07/13/20 BUN 19 mg/dL (7-18) H 06/15/23 10:20 06/15/23 Creatinine 1.09 mg/dL (0.55-1.02) H 06/15/23 10:20 Glucose 211 mg/dL (74-106) H 06/15/23 10:20 06/15/23 POC Glucose 132 mg/dL (74-106) H 06/18/24 10:57 06/18/24 TSH 2.92 uIU/mL (0.358-3.74) 05/31/22 14:35 COAG PT 13.9 SECONDS (11.7-14.9) 04/15/21 10:05 Pre-Assessment Diagnosis/Proposed Procedure Planned Operative Procedure(s): (R) Cervical MEDIAL BRANCH BLOCK AT C3 C4 C5 C6 UNDER FLUOROSCOPY Anesthesia History Anesthesia History - protection consultant: Anesthesia History - protection consultant Hx Hospitalization No 08/30/24 10:57 Any Problems With Anesthesia No 08/30/24 10:57 Cholinesterase deficiency No 08/30/24 10:57 You/Your Family Experience No 08/30/24 10:57 fever (hyperthermia) with Relationship Recent Exposure to Contagious No 09/03/24 09:24 Disease Does patient have nerve No 08/30/24 10:57 stimulator Patient instructed to have device shut off --Does patient have Pacemaker No 09/03/24 09:24 or ICD? When Was Last Pacemaker Check QUESTION #4 FULL TEXT: You/Your Family Experience fever (hyperthermia) with Anesthesia Last Oral Intake Last Oral intake: Last Oral Intake NPO since 05:00 09/03/24 09:24 Meds taken in AM with sips of Yes 09/03/24 09:24 water? Meds patient instructed to see medlist 09/03/24 09:24 take am of surgery PONV PONV - protection consultant: PONV - protection consultant Female Yes 08/30/24 10:57 HX of Motion Sickness Yes 08/30/24 10:57 HX of N/V After Surgery No 08/30/24 10:57 Non-Smoker No 08/30/24 10:57 Duration of Surgery greater No 08/30/24 10:57 than 60 minutes Number of Risk Factors 2 08/30/24 10:57 PONV Score Moderate Risk 08/30/24 10:57 Height & Weight Height & Weight: Anesthesia: Height & Weight Height 5 ft 3 in 09/03/24 09:24 Weight: 114 kg 09/03/24 09:24 Body Mass Index (BMI) 44.5 09/03/24 09:24 Respiratory Assessment Respiratory Assessment - protection consultant: Respiratory Tract Infection Hx - protection consultant Hx Respiratory Tract Infection No 08/30/24 10:57 STOP Sleep Apnea STOP Sleep Apnea - protection consultant: STOP Sleep Apnea - protection consultant Hx Hypertension Yes: on meds 08/30/24 10:57 Hx Sleep Apnea No 08/30/24 10:57 CPAP No 06/18/24 11:40 BIPAP No 05/17/24 12:58 Do you snore loudly (louder No 08/30/24 10:57 than talking or can be heard Do you often feel tired/ No 08/30/24 10:57 fatigued/ sleepy during daytime? Has anyone observed you stop No 08/30/24 10:57 breathing during sleep? STOP Results Negative 08/30/24 10:57 QUESTION #5 FULL TEXT : Do you snore loudly (louder than talking or can be heard through closed doors)? Tobacco Use History Tobacco Use History - protection consultant: Tobacco Use History - protection consultant Tobacco Use Smoking Status Heavy Smoker (>10/day) 08/30/24 10:57 Hx Tobacco Use Yes 08/30/24 10:57 Years Smoking Packs Smoked per Day Smoking Cessation Date was within the last 15 years Hx Smoking Cessation Date 08/22/20 08/30/24 10:57 Hx Smoking Cessation No 08/30/24 10:57 Counseling Hematologic Medial History Hematologic Hx - protection consultant: Hematologic Medical Hx - clinical documentation spec Hx of Blood Transfusion No 08/30/24 10:57 Hx of Transfusion in last 3 No 08/30/24 10:57 Months Date of Last Transfusion (if within last 3 months) Ever experience any problems No 08/30/24 10:57 with transfusion(s)? Specify any problems Hx of Preganancy in last 3 No 08/30/24 10:57 Months Nurse Filling Out Transfusion [email or web address] 08/30/24 10:57 & Questions: Date: 08/30/24 08/30/24 10:57 Time: 11:00 08/30/24 10:57 Patient unable to answer at this time (ie. confused, unrespo /Reproduction History /Reproductive History - protection consultant: /Reproductive Hx- protection consultant Hx Now No 08/30/24 10:57 Gestational Age (in weeks): EDC: Hx Hx Para Hx Section SAB No 08/30/24 10:57 Active Medications Active Medications: Current Medications Generic Name Dose Route Start Last Admin Trade Name Freq PRN Reason Stop Dose Admin Lactated Ringer's 1,000 mls @ 15 mls/hr 09/03/24 08:45 09/03/24 09:27 IV 15 mls/hr .Q48H C[place] Administration PFSH Medical History (Updated 08/30/24 @ 10:57 by Lillie Lee) Arthritis Bipolar disorder Depression Anxiety Migraine headache Dietary restriction History of diverticulitis Chronic cough History of echocardiogram Hypertension Cardiology follow-up encounter COPD (chronic obstructive pulmonary disease) Shortness of breath on exertion Ambulates with cane High cholesterol Smoker History of edema History of CHF (congestive heart failure) Fall Hyperlipidemia Nicotine dependence History of pulmonary embolus (PE) (07/13/20) (HFpEF) heart failure with preserved ejection fraction (07/13/20) Pericardial effusion without cardiac tamponade (07/13/20) Essential (primary) hypertension Anasarca Degeneration of intervertebral disc of lumbosacral region Spondylosis of lumbosacral region without myelopathy or radiculopathy Bilateral sacroiliitis Sacrococcygeal disorders, not elsewhere classified Bipolar disorder Diabetes Home Medications ?Medication ?Instructions ?Recorded ?Last Taken ?Type docusate sodium 100 mg capsule 100 mg PO BID 12/14/17 04/08/24 History (DOK) escitalopram oxalate 10 mg tablet 10 mg PO QHS 8 04/08/24 History lisinopril 5 mg tablet 5 mg PO LUNCH #30 tabs 08/1204/09/24 Rx buspirone 10 mg tablet 20 mg PO TID Anxiety 1 09/03/24 History atenolol 50 mg tablet 50 mg PO BID 09/11/20 History gabapentin 800 mg tablet 800 mg PO TID 10/28/2109/03 History multivitamin with folic acid 400 1 tab PO DAILY 04/08/24 History mcg tablet (Daily-Dmitri (with folic acid)) sumatriptan succinate 100 mg tablet 100 mg PO Q2H PRN migraines 05/31/22 04/08/24 History furosemide 40 mg tablet 40 mg PO DAILY 08/08/2308/26 History amlodipine 5 mg tablet 2.5 mg PO .q 3 days 11/25/23 04/08/24 History bisacodyl 5 mg tablet,delayed 5 mg PO DAILY 11/25/23 0 04/08/24 History release buprenorphine 10 mcg/hour weekly 1 patch transdermal Q 7D 11/25/23 04/09/24 History transdermal patch metformin 500 mg tablet 1,000 mg PO BIDCM 11/25/23 0 04/08/24 History quetiapine 200 mg tablet 200 mg PO QHS 11/25/2304/08 History quetiapine 400 mg tablet (Seroquel) 400 mg PO QHS 11/0304/08/24 History albuterol sulfate 90 mcg/actuation 2 puff inhalation Q 6H PRN 03/27/24 04/08/24 Rx aerosol inhaler shortness of breath or wheez ing #8.5 grams pantoprazole 20 mg tablet,delayed 20 mg PO Q12H 3 luigi hs #180 tabs 04/26/24 09/03/24 Rx release lactulose 10 gram/15 mL oral 15 - 30 ml PO DAILY PRN 0 05/17/24 Unknown History solution constipation fluticasone fur. 100 mcg-umeclid 1 inh inhalation Q24H #60 ea 07/31/24 Unknown Rx 62.5 mcg-vilant 25 mcg inhalat.powder (Trelegy Ellipta) Allergy/AdvReac Type Severity Reaction Status Date / Time hydrocodone AdvReac NEEDS Verified 09/03/24 09:13 FOLLOW-UP oxycodone AdvReac NEEDS Verified 09/03/24 09:13 FOLLOW-UP [id number] Reductase AdvReac Constipatio Verified 09/03/24 09:13 Inhibitor n Family History Mother Schizophrenia Sister Depression Sister Depression Surgical History Corneal transplant status Hx of tonsillectomy History of knee replacement History of lumbar surgery History of cataract surgery History of tubal ligation Social History household members: other details: lives with son Smoking Status: Heavy Smoker (>10/day) alcohol intake: never substance use type: does not use caffeine: Yes Type: coffee Number of servings: 3 and tea Number of servings: 1 seatbelt use: sometimes do you feel safe at home: Yes Review of Systems (Anesthesia) ROS Narrative System reviewed and no additional complaints, except as documented. 09/03/24 6599 <Electronically signed by Yovanny Gardner MD> Date _ Yovanny Harris Signature: CC: ~ Signed [facility] Work Phone: Consult note Author Grayson Ohara [facility] Note Date/Time September 03, 2024 10:[address] [facility] Medical Records Department [address] [place] [address] Anesthesia Postop Eval I 09/03/24 1021 MR#: [id number] Acct: [id number] Name: SILVIA ROSADO Rep #:[id number] : 1950 74 From: Grayson Ohara PCP: Dr. Bernie Jovel, DO Status:REG [facility] [place] C Location: [place] [address] Anesthesia: Postop Eval I Current Vital Signs Temperature: 97.6 F Pulse Rate: 60 Blood Pressure: 120/65 Respiratory Rate: 16 Pulse Ox: 97 Oxygen Delivery Method: Room Air Assessment Airway patent: Yes Spontaneous unlabored respirations: Yes Mental status: Awake and Calm nausea: No Vomiting: No Anesthesia Complication: No Fluid Hydration Crystalloid volume administer (ml): 200 Total IV fluid infused: 200 Progress Note Anesthesia document: Postop Eval 1 completed: Yes 09/03/24 1022 <Electronically signed by Grayson Ohara > Date _ Grayson Harris Signature: Date CC: ~ Signed [facility] Work Phone: Consult note Author Yovanny Gradner [facility] Note Date/Time September 03, 2024 11:[address] [facility] Medical Records Department [address] [place] [address] Anesthesia Postop Eval II 09/03/24 1039 MR#: [id number] Acct: [id number] Name: SILVIA ROSADO Rep #:[id number] : 1950 74 From: Yovanny Gardner MD PCP: Dr. Bernie Jovel, DO Status:REG SDC Y Race: C Location: [place] [address] Anesthesia Postop Eval I Sum Postop Eval Completion status Anesthesia document: Postop Eval 1 completed: Yes Anesthesia Postop Eval I Summary Anesthesia Postop Eval I Summary: Anesthesia Postop Eval I: Assessment Summary Airway patent Yes 09/03/24 10:22 [email or web address] Spontaneous unlabored Yes 09/03/24 10:22 [email or web address] respirations Mental status Awake,Calm 09/03/24 10:22 [email or web address] nausea No 09/03/24 10:22 [email or web address] Vomiting No 09/03/24 10:22 [email or web address] Anesthesia Postop Eval I: Fluid Summary Crystalloid volume administer 200 09/03/24 10:22 [email or web address] (ml) Colloids volume administered ( ml) Blood Product volume administered (ml) Total IV fluid infused 200 09/03/24 10:22 [email or web address] Anesthesia Postop Eval I: Summary Notes Anesthesia Complication No 09/03/24 10:22 [email or web address] Anesthesia Complication Comment: Post-operative progress note Anesthesia: Postop Eval II Evaluation Mental status: Awake Pain Level: 0 nausea: No Vomiting: No Complications Anesthesia Complication: No 09/03/24 1039 <Electronically signed by Yovanny Gardner MD> Date _ Yovanny Gardner MD Cosigner Signature: Date CC: ~ Signed [facility] Work Phone: Consult note Author Natali Galaviz [facility] Note Date/Time December 17, 2024 1:04pm [facility] Medical Records Department [address] [place] [address] Anesthesia Postop Eval I 12/17/24 1303 MR#: [id number] Acct: [id number] Name: SILVIA ROSADO Rep #:[id number] : 1950 74 From: Natali langley CRNA PCP: FAISAL ORO Status[place] [facility] C Location: [place] [address] Anesthesia: Postop Eval I Current Vital Signs Temperature: 97.4 F Pulse Rate: 62 Blood Pressure: 124/64 Respiratory Rate: 16 Pulse Ox: 94 Oxygen Delivery Method: Room Air Assessment Airway patent: Yes Spontaneous unlabored respirations: Yes Mental status: Awake and Calm nausea: No Vomiting: No Anesthesia Complication: No Fluid Hydration Crystalloid volume administer (ml): 200 Total IV fluid infused: 200 Progress Note Anesthesia document: Postop Eval 1 completed: Yes 12/17/24 1304 <Electronically signed by Natali thomson CRNA> Date _ Natali Galaviz CRNA Cosigner Signature: Date CC: ~ Signed [facility] Work Phone: Consult note Author Louis Lugo [facility] Note Date/Time December 17, 2024 2:11pm [facility] Medical Records Department [address] [place] [address] Anesthesia Postop Eval II 12/17/24 1411 MR#: [id number] Acct: [id number] Name: SILVAI ROSADOILLE Rep #:[id number] : 1950 74 From: Louis Lugo MD PCP: FAISAL ORO Status:REG SDC Y Race: C Location: [facility] Anesthesia Postop Eval I Sum Postop Eval Completion status Anesthesia document: Postop Eval 1 completed: Yes Anesthesia Postop Eval I Summary Anesthesia Postop Eval I Summary: Anesthesia Postop Eval I: Assessment Summary Airway patent Yes 12/17/24 13:04 LUMBER CARRIER.YVONNE Spontaneous unlabored Yes 12/17/24 13:04 LUMBER CARRIER.YVONNE respirations Mental status Awake,Calm 12/17/24 13:04 LUMBER CARRIER.REMINGTONOBY nausea No 12/17/24 13:04 LUMBER CARRIER.SKOBY Vomiting No 12/17/24 13:04 LUMBER CARRIER.REMINGTONOBShelbie Anesthesia Postop Eval I: Fluid Summary Crystalloid volume administer 200 12/17/24 13:04 LUMBER CARRIER.REMINGTONOBShelbie (ml) Colloids volume administered ( ml) Blood Product volume administered (ml) Total IV fluid infused 200 12/17/24 13:04 LUMBER CARRIER.YVONNE Anesthesia Postop Eval I: Summary Notes Anesthesia Complication No 12/17/24 13:04 LUMBER CARRIER.YVONNE Anesthesia Complication Comment: Post-operative progress note Anesthesia: Postop Eval II Evaluation Mental status: Awake Pain Level: 0 nausea: No Vomiting: No 12/17/24 1411 <Electronically signed by Louis Lugo MD > Date _ Louis Lugo MD Cosigner Signature: Date CC: ~ Signed [facility] Work Phone: Evaluation + Plan note Future Appointments Appointment Date:11/23/2022 10:30:00 AM Scheduled Provider:BERNIE JOVEL DO Location:[facility] Appointment Type: OV Diagnostic Tests Pending * Microalbumin Level Urine 05/27/22 Future Scheduled Tests Laboratory* Thyroid Stimulating Hormone 05/27/22 * Complete Blood Count 05/27/22 * Lipid Profile 05/27/22 * Complete Metabolic Panel 05/27/22 [facility] Evaluation + Plan note Future Appointments Appointment Date:03/15/2023 09:45:00 AM Scheduled Provider:PHYLLIS AYALA MD Location: [facility] Appointment Type:WH OV Appointment Date:05/24/2023 10:30:00 AM Scheduled Provider:BERNIE JOVEL DO Location:[facility] Appointment Type:PC OV Follow Up [facility] Evaluation + Plan note Future Appointments Appointment Date:01/28/2025 02:00:00 PM Scheduled Provider:JOSE OMER Location:[facility] Appointment Type:PC OV Future Scheduled Tests Laboratory* Lipid Profile 08/06/24 * Albumin/Creatinine Ratio, Random Urine 08/06/24 * Complete Metabolic Panel 08/06/24 [facility] Evaluation + Plan note Future Appointments Appointment Date:06/12/2025 01:00:00 PM Scheduled Provider:JOSE OMER Location:[facility] Appointment Type:PC OV Future Scheduled Tests Laboratory* A1C Hemoglobin 05/29/25 * Lipid Profile 05/29/25 * Lipid Profile 08/06/24 * Albumin/Creatinine Ratio, Random Urine 08/06/24 * Complete Metabolic Panel 05/29/25 * Complete Metabolic Panel 08/06/24 * N-Terminal proBNP 05/29/25 Radiology* BD Bone Density DEXA Axial Skeleton Adult (21 yrs or older) 11/26/24 [facility] Evaluation noteNo assessment information available [facility] Work Phone: Evaluation note* Diagnosis Onset Date Resolution Status Bipolar disorder acute Nicotine dependence acute Stage 1 mild COPD by GOLD classification acute [facility] Work Phone: Evaluation note* Diagnosis Onset Date Resolution Status Diabetes acute Food impaction of esophagus acute Hypertension chronic [facility] Work Phone: Hospital course Narrative No data available for this section [facility] Hospital Discharge instructions No data available for this section [facility] Hospital Discharge instructions Additional Instructions Please keep your appointment with dentistry. I would continue to massage the chin area to try to express as much of the infection as possible.[facility] Work Phone: Progress note No data available for this section [facility] Reason for referral (narrative)No reason for referral information availableWW[facility] Work Phone: Summary Purpose Family History No Family History Records Found Relationship Condition Age at Onset Recorded Date/T mason mother Schizophrenia Unknown sister Depression Unknown Advance Directives No Advanced Directives Records Found Advance Directive Response Recorded Date/ Time Advance Directives No November 06 9:48am Living Will No June 17, 2021 11:31am Power of Balancer No June 17 11:31am Advance Directive Response Recorded Date/ Time Advance Directives No November 06 019 8:48am Living Will No June 17, 2021 10:31am Power of Balancer No June 17 10:31am Advance Directive Response Recorded Date/ Time Advance Directives No November 06 9:48am Living Will No December 15, 2022 9:37am Power of Balancer No December 9:37am Advance Directive Response Recorded Date/ Time Advance Directives No November 06 9:48am Living Will No December 25, 2022 4:06pm Power of Balancer No December 4:06pm Advance Directive Response Recorded Date/ Time Advance Directives No November 06 8:48am Living Will No December 25, 2022 3:06pm Power of Balancer No December 3:06pm Advance Directive Response Recorded Date/ Time Advance Directives No November 06 019 9:48am Living Will No June 14, 2023 1:23pm Power of Balancer No June 13 1:23pm Advance Directive Response Recorded Date/ Time Advance Directives No November 06 9:48am Living Will No June 19, 2023 11:39am Power of Balancer No June 18 11:39am Advance Directive Response Recorded Date/ Time Living Will No May 17 1:58pm Power of Balancer No May 17, 2024 1:58pm Advance Directives No November 06 9:48am Advance Directive Response Recorded Date/ Time Living Will No May 17 1:58pm Do you have a Healthcare Power of Balancer? No May 17, 2024 1:58pm Do you have a Healthcare Power of Balancer? No August 30, 2024 10:57am Advance Directives No November 06 9:48am Advance Directive Response Recorded Date/ Time Living Will No June 19, 2023 11:39am Do you have a Healthcare Power of Balancer? No June 19, 2023 11:39am Living Will No May 17 1:58pm Do you have a Healthcare Power of Balancer? No May 17, 2024 1:58pm Do you have a Healthcare Power of Balancer? No August 30, 2024 10:57am Advance Directives No November 06 9:48am Advance Directive Response Recorded Date/ Time Living Will No June 19, 2023 11:39am Do you have a Healthcare Power of Balancer? No June 19, 2023 11:39am Do you have a Healthcare Power of Balancer? No August 30, 2024 10:57am Do you have a Healthcare Power of Balancer? No December 11, 2024 2:33pm Advance Directives No November 06 9:48am Chief Complaint and Reason for Visit Chief Complaint pulmonay embolism DYSPNEA DYSPNEA DYSPNEA DYSPNEA 3MO LABS LABS 6 M FU 3 M FU Reason for Visit COVID-19 Dyspnea Hypoxia Nicotine dependence History of pulmonary embolus (PE) History of pulmonary embolus (PE) (HFpEF) heart failure with preserved ejection fraction Dyspnea Essential (primary) hypertension History of pulmonary embolus (PE) Hyperlipidemia Bipolar disorder Nicotine dependence Stage 1 mild COPD by GOLD classification History of pulmonary embolus (PE) Chief Complaint 4 M FU 6 M FU E ORDERS Reason for Visit (HFpEF) heart failur e with preserved ejection fraction Bipolar disorder Nicotine dependence Stage 1 mild COPD by GOLD classification (HFpEF) heart failure with preserved ejection fraction Dyspnea Essential (primary) hypertension History of pulmonary embolus (PE) Hyperlipidemia Chief Complaint 6 M FU Reason for Visit Bipolar disorder Nicotine dependence Stage 1 mild COPD by GOLD classification Chief Complaint 6 M FU 1 Y FU NICOTINE DEP Reason for Visit Bipolar disorder Nicotine dependence Stage 1 mild COPD by GOLD classification (HFpEF) heart failure with preserved ejection fraction Essential (primary) hypertension History of pulmonary embolus (PE) Hyperlipidemia Chief Complaint SCREENING/OSTEO foreign body Chief Complaint SCREENING/OSTEO foreign body foreign body Reason for Visit Diabetes Food impaction of esophagus Hypertension Chief Complaint 6 M FU Reason for Visit Bipolar disorder Stage 1 mild COPD by GOLD classification (HFpEF) heart failure with preserved ejection fraction Nicotine dependence Chief Complaint DENTAL Chief Complaint DENTAL bilateral shoulder pain,cervalgia,thoracic pain dental Chief Complaint Admit Date COPD May 01, 2024 1 2:30pm COPD May 09, 2024 1 :25pm COPD May 18, 2024 12:13pm Chief Complaint Admit Date COPD May 09, 2024 1 :25pm COPD May 18, 2024 12:13pm 4 M FU July 31, 2024 12: 47pm Block, Medial Branch Nerve, Cervical MED IAL BRANCH September 03, 2024 8:41am Reason for Visit Admit Date Shortness of breath July 31, 2024 12: 47pm Stage 1 mild COPD by GOLD classification July 31, 2024 12:47pm Nicotine dependence July 31, 2024 12: 47pm Chief Complaint Admit Date COPD May 18, 2024 12:13pm 4 M FU July 31, 2024 12: 47pm Block, Medial Branch Nerve, Cervical MED IAL BRANCH September 03, 2024 8:41am 6 M FU September 12, 2024 12:5 4pm Reason for Visit Admit Date Shortness of breath July 31, 2024 12: 47pm Stage 1 mild COPD by GOLD classification July 31, 2024 12:47pm Nicotine dependence July 31, 2024 12: 47pm (HFpEF) heart failure with preserved eje ction fraction September 12, 2024 12:54pm Essential (primary) hypertension September 122024 12:54pm History of pulmonary embolus (PE) September 022024 12:54pm Hyperlipidemia September 12, 2024 12:5 4pm Chief Complaint Admit Date COPD May 18, 2024 12:13pm 4 M FU July 31, 2024 12: 47pm Block, Medial Branch Nerve, Cervical MED IAL BRANCH September 03, 2024 8:41am 6 M FU September 12, 2024 12:5 4pm 2 ORDERING DRS/copy results to Desiree Clemons September 12, 2024 1:43pm Chief Complaint Admit Date 4 M FU July 31, 2024 12: 47pm Block, Medial Branch Nerve, Cervical MED IAL BRANCH September 03, 2024 8:41am 6 M FU September 12, 2024 12:5 4pm 2 ORDERING DRS/copy results to Desiree Clemons September 12, 2024 1:43pm SOB September 18, 2024 12:5 6pm Chief Complaint Admit Date Block, Medial Branch Nerve, Cervical MED IAL BRANCH September 03, 2024 8:41am 6 M FU September 12, 2024 12:5 4pm 2 ORDERING DRS/copy results to Desiree Clemons September 12, 2024 1:43pm SOB September 18, 2024 12:5 6pm Block, Caudal December 17, 2024 9:54am Reason for Visit Admit Date (HFpEF) heart failure with preserved eje ction fraction September 12, 2024 12:54pm Essential (primary) hypertension September 122024 12:54pm History of pulmonary embolus (PE) September 022024 12:54pm Hyperlipidemia September 12, 2024 12:5 4pm Additional Source Comments INFORMATION SOURCE (unrecogn ized section and content) DATE CREATED AUTHOR 05/03/2021 [facility] DATE CREATED AUTHOR AUTHOR'S ORGANIZ ATION 03/01/2023 [facility] DATE CREATED AUTHOR AUTHOR'S ORGANIZ ATION 02/03/2025 [facility] DATE CREATED AUTHOR AUTHOR'S ORGANIZ ATION [facility]/13/20[facility] Goals (unrecognized section and content) Goals may be documented in a n alternate section No data available for this section No data available for this section No data available for this section No data available for this section No data available for this section No data available for this section No data available for this section Care Teams (unrecognized sec tion and content) Team Status: Active Member Role Status Dates Dr. Bernie Jovel DO Primary Care Provider Active Team Status: Active Member Role Status Dates Dr. Bernie Jovel DO Primary Care Provider Active Start: May 09, 2024 Coral Clemons SHIPPING/RECEIVING CLERK, SHIPPING/RECEIVING CLERK-C Referring Provider Active Start: May 09, 2024 Coral Clemons SHIPPING/RECEIVING CLERK, SHIPPING/RECEIVING CLERK-C Other Provider Active Start: May 09, 2024 Dr. Med Wilder DO Attending Provider Active S tart: May 09, 2024 Team Status: Inactive Member Role Status Dates Dr. Bernie Jovel DO Primary Care Provider Active Start: May 18, 2024 End: May 18, 2024 Coral Clemons SHIPPING/RECEIVING CLERK, SHIPPING/RECEIVING CLERK-C Attending Provider Active Start: May 18, 2024 End: May 18, 2024 Coral Clemons SHIPPING/RECEIVING CLERK, SHIPPING/RECEIVING CLERK-C Referring Provider Active Start: May 18, 2024 End: May 18, 2024 Team Status: Inactive Member Role Status Dates Dr. Bernie Jovel DO Primary Care Provider Active Start: June 18, 2024 End: June 18, 2024 Dr. Brandon uCellar MD Attending Provider Active Start: June 18, 2024 End: June 18, 2024 Dr. Brandon Cuellar MD Referring Provider Active Start: June 18, 2024 End: June 18, 2024 Team Status: Inactive Member Role Status Dates Dr. Bernie Jovel DO Primary Care Provider Active Start: July 31, 2024 End: July 31, 2024 Dr. Bernie Jovel DO Referring Provider Active Start: July 31, 2024 End: July 31, 2024 Xena Ramírez NP-C Attending Provider Active Start: July 31, 2024 End: July 31, 2024 Team Status: Inactive Member Role Status Dates Dr. Bernie Jovel DO Primary Care Provider Active Start: September 03, 2024 End: September 03, 2024 Dr. Brandon Cuellar MD Attending Provider Active Start: September 03, 2024 End: September 03, 2024 Dr. Brandon Cuellar MD Referring Provider Active Start: September 03, 2024 End: September 03, 2024 Team Status: Active Member Role Status Dates Dr. Bernie Jovel DO Family Provider Active Dr. Bernie Jovel DO Primary Care Provider Active Team Status: Inactive Member Role Status Dates Dr. Bernie Jovel DO Primary Care Provider Active Yarelis Mehta SHIPPING/RECEIVING CLERK, SHIPPING/RECEIVING CLERK-C Attending Provider Active Team Status: Inactive Member Role Status Dates Dr. Bernie Jovel DO Primary Care Provider, Referri ng Provider Active Dr. Brandon Cuellar MD Attending Provider Active Team Status: Inactive Member Role Status Dates Dr. Bernie Jovel DO Primary Care Provider, Referri ng Provider Active Coral Clemons SHIPPING/RECEIVING CLERK, SHIPPING/RECEIVING CLERK-C Attending Provider Active Team Status: Inactive Member Role Status Dates Dr. Bernie Jovel DO Primary Care Pro vider, Attending Provider, Referring Provider Active Team Status: Inactive Member Role Status Dates Dr. Bernie Jovel DO Primary Care Provider, Referri ng Provider Active Dr. Eloy Coon MD Active Bri Kim SHIPPING/RECEIVING CLERK, SHIPPING/RECEIVING CLERK-C Attending Provider Active Team Status: Inactive Member Role Status Dates Dr. Bernie Jovel DO Primary Care Provider Active Coral Clemons SHIPPING/RECEIVING CLERK, SHIPPING/RECEIVING CLERK-C Attending Provider, Referrin g Provider Active Team Status: Inactive Member Role Status Dates Dr. Bernie Jovel DO Primary Care Provider Active Dr. Brandon Cuellar MD Attending Provider, Referring Provider Active Team Status: Active Member Role Status Dates Dr. Bernie Jovel DO Primary Care Pro vider, Attending Provider, Referring Provider Active Team Status: Inactive Member Role Status Dates Dr. Bernie Jovel DO Primary Care Provider Active Dr. Joshua Aviles MD Emergency Provider Active Team Status: Active Member Role Status Dates Dr. Bernie Jovel DO Primary Care Provider Active Dr. Joshua Aviles MD Emergency Provider Active Dr. Josh Ram DO Attending Provid er, Referring Provider, Other Provider Active Team Status: Inactive Member Role Status Dates Dr. Bernie Jovel DO Primary Care Provider Active Carmel Brwon NP-C Attending Provider, Referring Pro vider Active Team Status: Inactive Member Role Status Dates Dr. Bernie Jovel DO Primary Care Provider Active Dr. Joshua Aviles MD Emergency Provider Active Dr. Josh Ram , DO Attending Provider, Referring Provider Active Team Status: Inactive Member Role Status Dates Dr. Bernie Jovel DO Primary Care Provider, Referri ng Provider Active Dr. Jimmy Vaca MD Attending Provider Active Team Status: Inactive Member Role Status Dates Dr. Bernie Jovel DO Primary Care Provider Active Dr. Brandyn Young , DO Emergency Provider Active Team Status: Active Member Role Status Dates Dr. Bernie Jovel DO Primary Care Provider Active NP. Sunshine Delgado Attending Provider, Referring Provid er Active Team Status: Inactive Member Role Status Dates Dr. Bernie Jovel DO Primary Care Provider Active Dr. Brandyn Young DO Attending Provider, Emergency P rovider Active Team Status: Inactive Member Role Status Dates Dr. Bernie Jovel DO Primary Care Provider Active Dr. Bon Barrett DO Emergency Provider Active Team Status: Inactive Member Role Status Dates Dr. Bernie Jovel DO Primary Care Provider Active NP. Sunshine Delgado Attending Provider, Referring Provid er Active Team Status: Inactive Member Role Status Dates Dr. Bernie Jovel DO Primary Care Provider Active Dr. Bon Barrett DO Attending Provider, Emergency P rovider Active Team Status: Inactive Member Role Status Dates Dr. Bernie Jovel DO Primary Care Provider Active Start: April 09, 2024 End: April 09, 2024 Dr. Brandon Cuellar MD Attending Provider Active Start: April 09, 2024 End: April 09, 2024 Dr. Brandon Cuellar MD Referring Provider Active Start: April 09, 2024 End: April 09, 2024 Team Status: Inactive Member Role Status Dates Dr. Bernie Jovel DO Primary Care Provider Active Start: May 01, 2024 End: May 01, 2024 oCral Clemons NP, SHIPPING/RECEIVING CLERK-C Attending Provider Active Start: May 01, 2024 End: May 01, 2024 Coral Clemons NP, SHIPPING/RECEIVING CLERK-C Referring Provider Active Start: May 01, 2024 End: May 01, 2024 Team Status: Active Member Role Status Dates FAISAL ORO Primary Care Provider Active Team Status: Inactive Member Role Status Dates Dr. Bernie Jovel DO Referring Provider Active Start: September 12, 2024 End: September 12, 2024 Bri Kim NP, SHIPPING/RECEIVING CLERK-C Attending Provider Active S tart: September 12, 2024 End: September 12, 2024 FAISAL ORO Primary Care Provider Active Start: September 12, 2024 End: September 12, 2024 Team Status: Inactive Member Role Status Dates FAISAL ORO Primary Care Provider Active Start: September 12, 2024 End: September 12, 2024 Bri Kim SHIPPING/RECEIVING CLERK, SHIPPING/RECEIVING CLERK-C Attending Provider Active S tart: September 12, 2024 End: September 12, 2024 Bri H Roof SHIPPING/RECEIVING CLERK, SHIPPING/RECEIVING CLERK-C Referring Provider Active S tart: September 12, 2024 End: September 12, 2024 Dr. Bernie Jovel DO Other Provider Active St art: September 12, 2024 End: September 12, 2024 Coral Clemons SHIPPING/RECEIVING CLERK, SHIPPING/RECEIVING CLERK-C Other Provider Active Start: September 12, 2024 End: September 12, 2024 Xena Ramírez NP-C Other Provider Active St art: September 12, 2024 End: September 12, 2024 Team Status: Inactive Member Role Status Dates Xena Ramírez SHIPPING/RECEIVING CLERK-C Attending Provider Active Start: September 18, 2024 End: September 18, 2024 Xena Ramírez NP-C Referring Provider Active Start: September 18, 2024 End: September 18, 2024 JOSE OMER NP-C Primary Care Provider Active Start: September 18, 2024 End: September 18, 2024 Team Status: Active Member Role Status Dates JOSE OMER NP-C Primary Care Provider Active Start: September 18, 2024 Dr. Eloy Coon MD Attending Provider Active S tart: September 18, 2024 Team Status: Active Member Role/Relationship Status Dates JOSE OMER NP-C Primary Care Provider Active Team Status: Inactive Member Role/Relationship Status Dates Dr. Bernie Jovel DO Primary Care Provider Active Start: September 03, 2024 End: September 03, 2024 Dr. Brandon Cuellar MD Attending Provider Active Start: September 03, 2024 End: September 03, 2024 Dr. Brandon Cuellar MD Referring Provider Active Start: September 03, 2024 End: September 03, 2024 Team Status: Inactive Member Role/Relationship Status Dates Dr. Bernie Jovel DO Referring Provider Active Start: September 12, 2024 End: September 12, 2024 Bri Kim SHIPPING/RECEIVING CLERK, SHIPPING/RECEIVING CLERK-C Attending Provider Active S tart: September 12, 2024 End: September 12, 2024 JOSE OMER NP-C Primary Care Provider Active Start: September 12, 2024 End: September 12, 2024 Team Status: Inactive Member Role/Relationship Status Dates JOSE OMER NP-C Primary Care Provider Active Start: September 12, 2024 End: September 12, 2024 Bri Kim SHIPPING/RECEIVING CLERK, SHIPPING/RECEIVING CLERK-C Attending Provider Active S tart: September 12, 2024 End: September 12, 2024 Bri Kim SHIPPING/RECEIVING CLERK, SHIPPING/RECEIVING CLERK-C Referring Provider Active S tart: September 12, 2024 End: September 12, 2024 Dr. Bernie Jovel DO Other Provider Active St art: September 12, 2024 End: September 12, 2024 Corla Clemons SHIPPING/RECEIVING CLERK, SHIPPING/RECEIVING CLERK-C Other Provider Active Start: September 12, 2024 End: September 12, 2024 Xena Ramírez NP-C Other Provider Active St art: September 12, 2024 End: September 12, 2024 Team Status: Inactive Member Role/Relationship Status Dates Xena Ramírez NP-C Attending Provider Active Start: September 18, 2024 End: September 18, 2024 Xena Ramírez NP-C Referring Provider Active Start: September 18, 2024 End: September 18, 2024 JOSE MARQUESETINES SHIPPING/RECEIVING CLERK-C Primary Care Provider Active Start: September 18, 2024 End: September 18, 2024 Team Status: Active Member Role/Relationship Status Dates JOSE OMER SHIPPING/RECEIVING CLERK-C Primary Care Provider Active Start: September 18, 2024 Dr. Eloy Coon MD Attending Provider Active S tart: September 18, 2024 Team Status: Inactive Member Role/Relationship Status Dates JOSE OMER SHIPPING/RECEIVING CLERK-C Primary Care Provider Active Start: October 02, 2024 Dr. Delma Conway MD Attending Provider Active Start: October 02, 2024 Team Status: Inactive Member Role/Relationship Status Dates JOSE OMER NP-C Primary Care Provider Active Start: December 17, 2024 End: December 17, 2024 Dr. Brandon Cuellar MD Attending Provider Active Start: December 17, 2024 End: December 17, 2024 Dr. Brandon Cuellar MD Referring Provider Active Start: December 17, 2024 End: December 17, 2024 Care Team (unrecognized sect ion and content) Care Team Personnel Name: BERNIE JOVEL DO Position: P4 Physician - Primary Care Member Role: Primary Care Physician Address: Address: [address] [place] [address] Care Team Related Persons Name: KOBI ROSADO [...] BE BASED ON THE PRIMARY CLINICAL RECORDS. [facility] [employer] [facility]. provides no warranty or guarantee of the accuracy or completeness of information in this document.
[2025-03-25] MEDS: 0.9% Normal Saline (1000mL) 1,000 ML 999 ML IV (22:58)
[2025-03-25 23:05] LABS: Hematocrit 39.2 % (37-47); Hemoglobin 12.6 g/dL (12.0-15.0); Immature Granulocytes Count 0.140 X10^3/uL (0.0-0.0); Mean Corp Hgb Conc 32.1 g/dL (32-36); Mean Corpuscular Volume 87.9 fL (81-99); Mean Platelet Vol. 9.6 fl (6.2-12.0); NRBC Flagged by Analyzer 0 % (0-5); Platelet Count 276 K/mm3 (150-450); RBC Distribution Width CV 14.9 % (11.6-14.6); RBC Distribution Width SD 47.7 fl (35.1-43.9); Red Blood Count 4.46 M/mm3 (4.2-5.4); White Blood Count 12.1 K/mm3 (4.4-11.0)
[2025-03-25 23:07] VITALS: PULSE 90; RESP 13
[2025-03-25 23:15] VITALS: BP 150/69; PULSE 91; RESP 14; O2SAT 90
[2025-03-25 23:30] VITALS: BP 145/79; PULSE 90; RESP 15
[2025-03-25 23:43] LABS: Anion Gap 15 (7-18); BUN 13 mg/dL (4-19); BUN/Creat Ratio 14.6 RATIO (10-20); Calcium,Total 9.6 mg/dL (7.6-11.0); Carbon Dioxide 21.4 mmol/L (20.0-29.0); Chloride 98 mmol/L (96-106); Glucose 109 mg/dL (70-99); Potassium 4.4 mmol/L (3.5-5.1)
[2025-03-25 23:45] VITALS: BP 160/76; PULSE 94; RESP 15
--- NOTE | 2025-03-25 23:59 | CT_ITS ---
PROCEDURE: CTA CHEST W/WO CONTRAST 03/26/2025 REASON FOR EXAM: SOB, PAIN RADIATING TO BACK TECHNIQUE: Procedure Code: [id number] Modality: CT Procedure: CTA CHEST W/WO CONTRAST Multiplanar Sagittal and Coronal images were obtained. CONTRAST: Isovue 370 VOLUME: 100 mL One or more dose reduction techniques were used (e.g., Automated exposure control, adjustment of the mA and/or kV according to patient size, use of iterative reconstruction technique). RADIATION DOSE SUMMARY: CTDlvol: 15.8 mGy DLP: 492 mGycm COMPARISON: 01/07/2025. FINDINGS: Right upper lobe segmental branches pulmonary emboli are noted. Mild cardiomegaly. Mild pericardial effusion. Bilateral basilar atelectatic changes/multifocal ground-glass densities of the lower lobes, hypoventilatory pulmonary changes and/or superimposed pneumonia. Subsegmental atelectatic changes of the lingula. Mild osteopenia. Moderate diffuse spondylosis. Normal enhancement of the main pulmonary artery and right and left pulmonary arteries. There is no demonstrated large central or massive pulmonary embolism. No CT evidence of cardiac strain. Normal thoracic aorta and visualized great vessels. There is no demonstrated aortic dissection. Normal mediastinum. Normal hilar regions. Normal visualized trachea and bronchi. Normal pleura. Small sliding hiatal hernia. CT/CTA Chest W/WO Contrast IMPRESSION: Right upper lobe segmental branches pulmonary emboli are noted. Mild cardiomegaly. Mild pericardial effusion. Bilateral basilar atelectatic changes/multifocal ground-glass densities of the lower lobes, hypoventilatory pulmonary changes and/or superimposed pneumonia. Subsegmental atelectatic changes of the lingula. Mild osteopenia. Moderate diffuse spondylosis. Reading Location: [place] [id number]
[2025-03-26] VITALS (16 sets, daily range): BP systolic 128–151; BP diastolic 71–93; PULSE 81–98; RESP 14–23; TEMP 36.1; O2SAT 86–98
--- NOTE | 2025-03-26 00:31 | EX.ED.DYSGE1 ---
HPI History of Present Illness Chief Complaint: Back Narrative Narrative: Patient is a 75-year-old female with past medical history of bipolar disorder, GERD, anxiety, depression, chronic pain through pain management, CHF, pulmonary embolism, heart failure, diabetes who presented to the emergency department with a chief complaint of chest pain rating to her back and concern for a blood clot in her lungs. Patient denies any recent travel history. Patient states that she has been trying her pain patches that she is prescribed and states that this will help for a short period of time. [facility] Medical History Walker as ambulation aid Uses wheelchair Gastric reflux Arthritis Bipolar disorder Depression Anxiety Migraine headache Dietary restriction History of diverticulitis Chronic cough History of echocardiogram Hypertension Cardiology follow-up encounter COPD (chronic obstructive pulmonary disease) Shortness of breath on exertion High cholesterol Smoker History of edema History of CHF (congestive heart failure) Fall Hyperlipidemia History of pulmonary embolus (PE) (07/13/20) (HFpEF) heart failure with preserved ejection fraction (07/13/20) Pericardial effusion without cardiac tamponade (07/13/20) Diabetes Home Medications ?Medication ?Instructions ?Recorded ?Last Taken ?Type docusate sodium 100 mg capsule 100 mg PO BID 12/14/17 04/08/24 History (DOK) escitalopram oxalate 10 mg tablet 10 mg PO QHS 12/14/17 04/08/24 History lisinopril 5 mg tablet 5 mg PO LUNCH #30 tabs 08/12/20 04/09/24 Rx buspirone 10 mg tablet 20 mg PO TID Anxiety 08/22/20 12/17/24 10:00 History atenolol 50 mg tablet 50 mg PO BID 09/11/20 09/03/24 History gabapentin 800 mg tablet 800 mg PO TID 10/28/21 12/17/24 10:00 History multivitamin with folic acid 400 1 tab PO DAILY 05/31/22 04/08/24 History mcg tablet (Daily-Dmitri (with folic acid)) sumatriptan succinate 100 mg tablet 100 mg PO Q2H PRN migraines 05/31/22 04/08/24 History furosemide 40 mg tablet 40 mg PO DAILY 08/08/23 04/08/24 History bisacodyl 5 mg tablet,delayed 5 mg PO DAILY 11/25/23 04/08/24 History release buprenorphine 10 mcg/hour weekly 1 patch transdermal Q7D 11/25/23 04/09/24 History transdermal patch metformin 500 mg tablet 1,000 mg PO BIDCM 11/25/23 04/08/24 History quetiapine 200 mg tablet 200 mg PO QHS 11/25/23 04/08/24 History quetiapine 400 mg tablet (Seroquel) 400 mg PO QHS 11/25/23 04/08/24 History albuterol sulfate 90 mcg/actuation 2 puff inhalation Q6H PRN 03/27/24 04/08/24 Rx aerosol inhaler shortness of breath or wheezing #8.5 grams lactulose 10 gram/15 mL oral 15 - 30 ml PO DAILY PRN 05/17/24 Unknown History solution constipation alendronate 70 mg tablet 70 mg PO QWEEK 09/12/24 Unknown History calcium 500 mg (as 1 tab PO BID 09/12/24 Unknown History carbonate)-vitamin D3 5 mcg (200 unit) tablet (Oyster Shell Calcium-Vitamin D3) cetirizine 10 mg tablet 10 mg PO Q12H PRN allergy symptoms 09/12/24 Unknown History ezetimibe 10 mg tablet 10 mg PO QDAY 09/12/24 Unknown History hydroxyzine HCl 10 mg tablet 10 mg PO 4X/DAY 09/12/24 Unknown History tizanidine 4 mg tablet 4 mg PO BID 09/12/24 Unknown History mometasone-formoterol HFA 200 2 puff inhalation BID #13 grams 09/18/24 Unknown Rx mcg-5 mcg/actuation aerosol inhaler (Dulera) tiotropium bromide 2.5 2 puff inhalation QDAY #4 grams 09/20/24 Unknown Rx mcg/actuation mist for inhalation (Spiriva Respimat) pantoprazole 20 mg tablet,delayed 20 mg PO Q12H 3 months #180 tabs 01/02/25 Unknown Rx release Allergy/AdvReac Type Severity Reaction Status Date / Time hydrocodone AdvReac NEEDS Verified 03/25/25 20:09 FOLLOW-UP oxycodone AdvReac NEEDS Verified 03/25/25 20:09 FOLLOW-UP [id number]-[id number] Reductase AdvReac Constipatio Verified 03/25/25 20:09 Inhibitor n Family History Mother Schizophrenia Sister Depression Sister Depression Surgical History Corneal transplant status Hx of tonsillectomy History of knee replacement History of lumbar surgery History of cataract surgery History of tubal ligation Social History household members: other details: lives with son Smoking Status: Heavy Smoker (>10/day) alcohol intake: never substance use type: does not use caffeine: Yes Type: coffee Number of servings: 3 and tea Number of servings: 1 seatbelt use: sometimes do you feel safe at home: Yes ROS ROS ED ROS Narrative Constitutional: Denies any fevers, chills, headaches, lightheadedness Cardiovascular: Denies any palpitations Respiratory: Denies shortness of breath Abdomen: Denies abdominal pain nausea vomit diarrhea : Denies urinary symptoms Neurological: Denies numbness, aches, tingling Musculoskeletal: Complains of back pain as noted above Skin: Denies any rashes or lesions EXAM Physical Exam Narrative Exam Narrative: General: Patient sitting in chair in the hallway resting comfortably did not appear to be in acute distress Head: Somatic, normocephalic Eyes: PERRL bilaterally, EOMI bilaterally, no conjunctival injection noted Neck: Soft, supple, trachea midline Cardiovascular: Patient was noted be tachycardic Respiratory: Clear to auscultation bilaterally Abdomen: Soft, nondistended, nontender to palpation Extremities: +4/5 strength in the bilateral upper and lower extremities Neurological: Patient follow commands knew that she was at [facility] the year is 2024 Skin: Warm, dry, intact no rashes or lesions noted Const Vital Signs: 03/25/25 20:06 03/25/25 23:07 03/25/25 23:08 Temperature 96.9 F L Temperature Source Temporal Pulse Rate 107 H 90 Respiratory Rate 16 13 Blood Pressure 140/80 H Blood Pressure Mean 100 Pulse Ox 95 Oxygen Delivery Method Room Air Room Air Oxygen Flow Rate (L/min) 03/25/25 23:15 03/25/25 23:30 03/25/25 23:45 Temperature Temperature Source Pulse Rate 91 90 Respiratory Rate 14 15 Blood Pressure 150/69 H 145/79 H 160/76 H Blood Pressure Mean 91 98 99 Pulse Ox 90 Oxygen Delivery Method Oxygen Flow Rate (L/min) 03/25/25 23:45 03/26/25 00:00 03/26/25 00:00 Temperature Temperature Source Pulse Rate 94 97 Respiratory Rate 15 20 H Blood Pressure 160/76 H 145/71 H 145/71 H Blood Pressure Mean 99 90 90 Pulse Ox Oxygen Delivery Method Oxygen Flow Rate (L/min) 03/26/25 00:15 03/26/25 00:30 03/26/25 00:45 Temperature Temperature Source Pulse Rate 96 94 93 Respiratory Rate 19 H 16 23 H Blood Pressure 151/81 H 128/90 H Blood Pressure Mean 102 99 Pulse Ox 93 90 Oxygen Delivery Method Oxygen Flow Rate (L/min) 03/26/25 00:46 03/26/25 01:00 03/26/25 01:15 Temperature Temperature Source Pulse Rate 94 Respiratory Rate 14 Blood Pressure 149/75 H 146/79 H Blood Pressure Mean 96 99 Pulse Ox 88 86 Oxygen Delivery Method Room Air Oxygen Flow Rate (L/min) 03/26/25 01:15 03/26/25 01:18 03/26/25 01:30 Temperature Temperature Source Pulse Rate 93 82 Respiratory Rate 18 22 H Blood Pressure 135/80 H 137/77 H Blood Pressure Mean 97 93 Pulse Ox 90 94 Oxygen Delivery Method Nasal Cannula Oxygen Flow Rate (L/min) 2 MDM MDM MDM Narrative Medical decision making narrative: Patient is a 75-year-old female who presented to the emergency department chief complaint of chest pain rating to her back, concern for pulmonary embolism. On the differential diagnose includes but not to pulmonary embolism, ACS, pneumonia, pneumothorax, chronic back pain. Once the workup is obtained reviewed she will be reevaluated. Patient CBC reviewed and showed a leukocytosis of 12,000, hemoglobin 12.6, plate count was noted be 276. Patient sodium 135, potassium normal 4.4, creatinine was noted be 0.90. Patient's CT of chest still pending. Patient's EKG was reviewed and showed sinus rhythm with a rate of [address] changes noted. Patient's case will be signed out to overnight physician to follow-up on CT of the chest. Lab Data Labs: Laboratory Results - last 24 hr 03/25/25 22:55 WBC 12.1 H RBC 4.46 Hgb 12.6 Hct 39.2 MCV 87.9 MCH 28.3 MCHC 32.1 RDW Std Deviation 47.7 H RDW Coeff of Amarilys 14.9 H Plt Count 276 MPV 9.6 Immature Gran % (Auto) 1.200 H Neut % (Auto) 73.6 H Lymph % (Auto) 14.9 L Gregg % (Auto) 6.8 Eos % (Auto) 2.8 Baso % (Auto) 0.7 Absolute Neuts (auto) 8.9 H Absolute Lymphs (auto) 1.80 Nucleated RBC % 0 Sodium 135 Potassium 4.4 Chloride 98 Carbon Dioxide 21.4 Anion Gap 15 BUN 13 Creatinine 0.90 Est GFR (MDRD) Non-Af 66 BUN/Creatinine Ratio 14.6 Glucose 109 H Calcium 9.6 Discharge Plan Triage Chief Complaint: Back ED Provider: Kunal Ohara Dx/Rx/DC Orders Clinical Impression: Essential (primary) hypertension, (HFpEF) heart failure with preserved ejection fraction, Bipolar disorder, Chest pain Prescriptions: No Action gabapentin 800 mg tablet 800 mg PO TID multivitamin with folic acid [Daily-Dmitri (with folic acid)] 400 mcg tablet 1 tab PO DAILY sumatriptan succinate 100 mg tablet 100 mg PO Q2H PRN (Reason: migraines) buprenorphine 10 mcg/hour patch weekly 1 patch transdermal Q7D metformin 500 mg tablet 1,000 mg PO BIDCM Patient Comments: diabetic medication quetiapine 200 mg tablet 200 mg PO QHS Rx Instructions: Take with 400 mg tablet to = 600 mg at bedtime tizanidine 4 mg tablet 4 mg PO BID ezetimibe 10 mg tablet 10 mg PO QDAY cetirizine 10 mg tablet 10 mg PO Q12H PRN (Reason: allergy symptoms) calcium carbonate-vitamin D3 [Oyster Shell Calcium-Vit D3] 500 mg-5 mcg (200 unit) tablet 1 tab PO BID hydroxyzine HCl 10 mg tablet 10 mg PO 4X/DAY alendronate 70 mg tablet 70 mg PO QWEEK bisacodyl 5 mg tablet,delayed release (DR/EC) 5 mg PO DAILY Patient Comments: constipation docusate sodium [DOK] 100 MG capsule 100 mg PO BID escitalopram oxalate 10 MG tablet 10 mg PO QHS quetiapine [Seroquel] 400 mg tablet 400 mg PO QHS Rx Instructions: Take with 200 mg tablet to = 600 mg at bedtime buspirone 10 mg tablet 20 mg PO TID furosemide 40 mg tablet 40 mg PO DAILY lactulose 10 gram/15 mL solution 15 - 30 ml PO DAILY PRN (Reason: constipation) lisinopril 5 mg tablet 5 mg PO LUNCH Qty: 30 11RF atenolol 50 mg tablet 50 mg PO BID albuterol sulfate 90 mcg/actuation HFA aerosol inhaler 2 puff inhalation Q6H PRN (Reason: shortness of breath or wheezing) Qty: 8.5 6RF Dulera 200-5 mcg/actuation HFA aerosol inhaler 2 puff inhalation BID Qty: 13 11RF Spiriva Respimat 2.5 mcg/actuation mist 2 puff inhalation QDAY Qty: 4 11RF pantoprazole 20 mg tablet,delayed release (DR/EC) 20 mg PO Q12H 90 Days Qty: 180 2RF Primary Care Provider: JOSE OMER Referrals: JOSE OM[facility] [Primary Care Provider, Family Practice] Activity Restrictions/Additional Instructions: Follow-up with your doctor in the outpatient setting. Return with worsening symptoms or any concerns. Your blood work did not show any acute findings here today. Print Language: Lao
[2025-03-26] MEDS: APIXABAN 5 MG TABLET 10 MG PO (02:56)
== END 2025-03-26 06:42 | disposition home or self-care (01) ==
PROVIDERS: Emergency Provider Emergency Medicine; PCP Nurse Practitioner Family; Visit Provider Emergency Medicine
DX: I26.93 Single subsegmental thrombotic pulmonary embolism without acute cor pulmonale (principal); I11.0 Hypertensive heart disease with heart failure; I50.30 Unspecified diastolic (congestive) heart failure; F31.9 Bipolar disorder, unspecified; J44.9 Chronic obstructive pulmonary disease, unspecified; E11.9 Type 2 diabetes mellitus without complications; R07.9 Chest pain, unspecified; F17.200 Nicotine dependence, unspecified, uncomplicated; Z86.711 Personal history of pulmonary embolism; E78.00 Pure hypercholesterolemia, unspecified; F41.9 Anxiety disorder, unspecified; Z79.899 Other long term (current) drug therapy; Z79.84 Long term (current) use of oral hypoglycemic drugs; Z79.51 Long term (current) use of inhaled steroids; K21.9 Gastro-esophageal reflux disease without esophagitis; Z94.7 Corneal transplant status; Z96.659 Presence of unspecified artificial knee joint; Z98.51 Tubal ligation status
CPT/HCPCS: 71275; 80048; 85025; 87631; 93005; 96360; 96361; 99285; Q9967; A4216